=== PATIENT | male | born 1945 | race Caucasian/White ===

== ENCOUNTER → 2020-03-05 14:26 | Outpatient (BNVA) | payer MEDICARE, SELFPAY | PROVIDERS: PCP Internal Medicine; Visit Provider Internal Medicine Cardiovascular Disease | DX: I10 Essential (primary) hypertension (principal); R06.00 Dyspnea, unspecified | CPT/HCPCS: 93005; 99202 ==

== ENCOUNTER → 2020-04-01 08:28 | Outpatient (REF) | payer MEDICARE, SELFPAY ==
--- NOTE | 2020-04-01 08:32 | CA_ITS ---
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 The visually estimated ejection fraction is between 60-65%. - There is mild aortic valve regurgitation. - There is mild tricuspid valve regurgitation. - Small plaque is seen in the sino tubular ridge. Findings Left Ventricle Normal left ventricular cavity size. There is mildly increased left ventricular wall thickness. The left ventricular systolic function is normal. The visually estimated ejection fraction is between 60-65%. There is no evidence of regional wall motion abnormalities. Diastolic function is normal for age. Right Ventricle Normal right ventricular cavity size and systolic function. Atria Both atria are normal in size. Aortic Valve There is a normal trileaflet aortic valve. There is no aortic valve stenosis. There is mild aortic valve regurgitation. Mitral Valve The mitral valve appears normal. There is trace mitral valve regurgitation. There is no mitral valve stenosis. Pulmonic Valve The pulmonic valve was not well visualized. Tricuspid Valve Normal tricuspid valve structure. There is mild tricuspid valve regurgitation. The pulmonary artery systolic pressure is normal. Great Vessels The aortic annulus, sinuses of valsalva, and asc aorta are normal in size. Small plaque is seen in the sino tubular ridge. Venous The inferior vena cava is normal in size and collapses greater than 50% with inspiration. Pericardium/Pleural There is no evidence of pericardial effusion. Prior Study Comparison No prior study available for comparison. Measurements 2D Linear Measurements IVSd: 1.24 0.6-0.9/0.6-1.0 cm LVIDd: 3.83 3.9-5.3/4.2-5.9 cm LVIDd Index: 2.02 2.4-3.2/2.2-3.1 cm/m2 LVIDs: 2.45 2.0-3.6 cm LVPWd: 1.25 0.7-1.1 cm Ao Root: 3.10 2.1-3.5 cm LA Diam: 3.20 2.7-3.8/3.0-4.0 cm LAIDs Index: 1.68 1.5-2.3 cm/m2 LV Mass: 204.10 67-162/88-224 g LV Mass Index: 107.42 43-95/49-115 g/m2 LVOT Diam: 2.30 3.0+(-)1.3 cm 2D Systolic Function EF 4C: 56.40 >55% EF 2C: 66.00 >55% EF BiP: 61.40 >55% Mitral Valve MV Pk E: 0.73 MV PK A: 0.76 MV Decel Time: 232.00 E/A: 1.00 E'Lateral: 11.40 E'Medial: 7.35 E/E' Med: 10.00 E/E' Lat: 6.40 PHT: 68.00 MVA PHT: 3.24 Decel [place]: 3.15 Aortic Valve AoV Pk Koby: 1.38 AoV Mn Koby: 0.88 AoV VTI: 0.33 AoV Pk Grad: 8.00 Aov Mn Grad: 4.00 IRVING Cont.VTI: 3.24 LVOT LVOT Pk Koby: 1.14 LVOT Mn Koby: 0.79 LVOT VTI: 0.26 LVOT Pk Grad: 5.00 LVOT Mn Grad: 3.00 LVOT Diam: 2.30 LVOT Area: 4.15 Diastolic Function MV Pk E: 0.73 MV Pk A: 0.76 E/A: 1.00 E'Medial: 7.35 E/E' Med: 10.00 E' Laterial: 11.40 E/E' Lat: 6.40 Tricuspid Valve TR Pk Koby: 2.59 TR Pk Grad: 27.00 RA Press: 3.00 RVSP: 30.00 Great Vessels Aorta Ao Root-2D: 3.10 2.0-3.7 cm Ao Asc: 3.30 2.1-3.4 cm Pulmonary Valve PV Pk Koby: 0.83 Peak PV Grad: 3.00 Updated in Other Vendor System with Status of Final Homero Hernandez MD electronically signed on 04/03/2020 5:00:17 PM with status of Final
--- NOTE | 2020-04-01 08:32 | CA_ITS ---
Acquisition Time: 2020-04-01 10:01:49 Total Exercise Time: 00:05:00 Test Indications: DYNSPNEA Medications: Protocol: HAYDEE Max HR: 131 BPM 89% of Pred: 146 BPM Max BP: 140/090 mmHG Max Work Load: 6.9 METS Exercise stress test with exercise 5 min of haydee protocol, with moderate SOB, no chest discomfort, with rare PVC, with normotensive response to exercise, without EKG changes meeting criteria for ischemia In recvoery his breathing improved to baseline. Test reviewed with Dr Nicholas. Referred By: Lakhwinder De Souza Overread By: DAJA GONZALEZ
== END ==
LOC: HO.CARD 08:28
PROVIDERS: PCP Internal Medicine; Visit Provider Internal Medicine Cardiovascular Disease
DX: R06.00 Dyspnea, unspecified (principal)
CPT/HCPCS: 93017; 93306

== ENCOUNTER 2020-04-10 12:11 | Outpatient (REF) | payer MEDICARE, SELFPAY ==
[2020-04-10 12:50] LABS: Hematocrit 51.9 % (42-52); Hemoglobin 17.6 g/dl (14.0-18.0); Mean Corpuscular HGB Conc 33.9 g/dl (31.0-36.0); Mean Corpuscular Hemoglobin 32.1 pg (27.0-33.0); Mean Corpuscular Volume 94.7 fL (80-98); Mean Platelet Volume 10.9 fL (9.4-12.4); Platelet Count 278 X10*3/uL (160-400); Red Blood Count 5.48 X10*6/uL (4.60-5.80); Red Cell Distribution Width 12.8 % (11.0-16.0); White Blood Count 7.6 X10*3/uL (4.8-10.8)
[2020-04-10 13:00] LABS: INTERNATIONAL NORM RATIO 0.9 (0.9-1.1); Prothrombin Time 11.2 SEC (10.8-13.0)
[2020-04-10 13:29] LABS: Anion Gap 17 (12-20); Blood Urea Nitrogen 11 mg/dL (9-16); Calcium 10.1 mg/dL (8.4-10.2); Carbon Dioxide 28 mmol/L (22-29); Chloride 101 mmol/L (96-108); Estimated Glomerular Filt Rate > 60; Glucose Random 138 mg/dL (60-115); Potassium 5.6 mmol/L (3.3-5.1); Sodium 140 mmol/L (135-145)
== END 2020-04-10 12:12 | disposition home or self-care (01) ==
LOC: HO.LAB 12:11
PROVIDERS: PCP Internal Medicine; Visit Provider Internal Medicine Cardiovascular Disease
DX: R06.00 Dyspnea, unspecified (principal)
CPT/HCPCS: 36415; 80048; 85027; 85610

== ENCOUNTER 2020-04-23 09:54 | Outpatient (REF) | payer MEDICARE, SELFPAY ==
[2020-04-23 10:59] LABS: Anion Gap 14 (12-20); Blood Urea Nitrogen 11 mg/dL (9-16); Calcium 9.6 mg/dL (8.4-10.2); Carbon Dioxide 31 mmol/L (22-29); Chloride 99 mmol/L (96-108); Estimated Glomerular Filt Rate > 60; Glucose Random 111 mg/dL (60-115); Potassium 4.5 mmol/L (3.3-5.1); Sodium 139 mmol/L (135-145)
== END 2020-04-23 09:55 | disposition home or self-care (01) ==
LOC: HO.LAB 09:54
PROVIDERS: PCP Internal Medicine; Visit Provider Nurse Practitioner Family
DX: E87.5 Hyperkalemia (principal)
CPT/HCPCS: 36415; 80048

== ENCOUNTER → 2020-04-30 10:52 | Outpatient (BNVA) | payer MEDICARE, SELFPAY | PROVIDERS: PCP Internal Medicine; Visit Provider Internal Medicine Cardiovascular Disease | DX: I10 Essential (primary) hypertension (principal); R06.00 Dyspnea, unspecified; D75.1 Secondary polycythemia | CPT/HCPCS: 99212 ==

== ENCOUNTER 2020-05-06 11:01 | Outpatient (REF) | payer MEDICARE, SELFPAY ==
--- NOTE | 2020-05-06 12:18 | PFT_ITS ---
FLOWS: FEV1 of 149% of predicted at 3.26 L. FVC 107% of predicted at 4.24 L. FEV1 to FVC ratio of 0.77. Positive bronchodilator response. LUNG VOLUMES: Total lung capacity 112% of predicted at 7.47 L. Residual volume 129% of predicted at 3.15 L. Slow vital capacity 102% of predicted at 4.32 L. Expiratory reserve volume 149% of predicted at 1.65 L. Diffusion capacity is normal. IMPRESSION: Mild reversible obstructive ventilatory defect with positive bronchodilator response. Increased residual volume suggests air trapping. This test result can be observed in a patient with clinical asthma. Clinical correlation is advised. MD BARRY Garcia/MODL / [id number]
== END 2020-05-06 11:02 | disposition home or self-care (01) ==
LOC: HO.RESP 11:01
PROVIDERS: Visit Provider Internal Medicine Cardiovascular Disease
DX: R06.00 Dyspnea, unspecified (principal)
CPT/HCPCS: 94060; 94727; 94729

== ENCOUNTER 2020-05-20 13:33 | Outpatient (REF) | payer MEDICARE, SELFPAY ==
--- NOTE | ~2020-05-20 | XR_ITS ---
EXAMINATION: XR CHEST CLINICAL INFORMATION: Asthma COMPARISON: Previous chest x-ray and chest CT June 2018 TECHNIQUE: 2 views of the chest were obtained. FINDINGS: The cardiac silhouette does not appear enlarged. The ascending thoracic aorta is slightly prominent but unchanged. Hilar and mediastinal contours are otherwise unremarkable. The lungs are clear. There is no pleural effusion or pneumothorax. There are degenerative changes of the spine. XR/XR chest 2V IMPRESSION: No evidence for acute disease in the chest. Prominent ascending thoracic aorta similar to previous exams.
== END 2020-05-20 13:34 | disposition home or self-care (01) ==
LOC: HO.XRAY 13:33
PROVIDERS: PCP Internal Medicine; Visit Provider Internal Medicine
DX: R06.00 Dyspnea, unspecified (principal); J45.909 Unspecified asthma, uncomplicated; D75.1 Secondary polycythemia; Z79.899 Other long term (current) drug therapy
CPT/HCPCS: 71046; 99202

== ENCOUNTER → 2020-05-28 13:02 | Outpatient (BNVA) | payer MEDICARE, SELFPAY | PROVIDERS: PCP Internal Medicine; Visit Provider Internal Medicine Cardiovascular Disease | DX: Z13.89 Encounter for screening for other disorder (principal) | CPT/HCPCS: 99212 ==

== ENCOUNTER → 2020-06-22 10:53 | Outpatient (BNVA) | payer MEDICARE, SELFPAY | PROVIDERS: PCP Internal Medicine; Visit Provider Internal Medicine | DX: J45.909 Unspecified asthma, uncomplicated (principal); R06.00 Dyspnea, unspecified; D75.1 Secondary polycythemia; Z79.899 Other long term (current) drug therapy | CPT/HCPCS: 99212 ==

== ENCOUNTER → 2020-08-18 12:50 | Outpatient (BNVA) | payer MEDICARE, SELFPAY | PROVIDERS: PCP Internal Medicine; Referring Provider Internal Medicine; Visit Provider Surgery | DX: K40.20 Bilateral inguinal hernia, without obstruction or gangrene, not specified as recurrent (principal) | CPT/HCPCS: 99202 ==

== ENCOUNTER → 2020-12-09 10:52 | Outpatient (BNVA) | payer MEDICARE, SELFPAY | PROVIDERS: PCP Internal Medicine; Visit Provider Internal Medicine Cardiovascular Disease | DX: I10 Essential (primary) hypertension (principal); R06.00 Dyspnea, unspecified | CPT/HCPCS: 99212 ==

== ENCOUNTER → 2020-12-22 10:58 | Outpatient (BNVA) | payer MEDICARE, SELFPAY | PROVIDERS: PCP Internal Medicine; Visit Provider Internal Medicine | DX: J45.909 Unspecified asthma, uncomplicated (principal); R06.00 Dyspnea, unspecified | CPT/HCPCS: 99212 ==

== ENCOUNTER 2021-03-22 13:46 | Outpatient (REF) | payer MEDICARE, SELFPAY ==
[2021-03-22 16:19] LABS: MANUAL DIFF FLAG NO
[2021-03-22 16:25] LABS: Basophils Percent Auto 0.3 % (0-2); Eosinophils Absolute Auto 0.2 X10*3/uL (0.0-0.4); Eosinophils Percent Auto 2.2 % (0-4); Hematocrit 49.8 % (42.0-52.0); Hemoglobin 16.5 g/dl (14.0-18.0); Imm Gran Abs Auto 0.02 X10*3/uL (0.00-0.03); Imm Gran Pct Auto 0.3 % (0.0-0.4); Lymphocytes Absolute Auto 1.2 X10*3/uL (1.2-4.9); Lymphocytes Percent Auto 16.3 % (20-40); Mean Corpuscular HGB Conc 33.1 g/dl (31.0-36.0); Mean Corpuscular Volume 93.6 fL (80.0-98.0); Mean Platelet Volume 11.6 fL (9.4-12.4); Monocytes Absolute Auto 0.9 X10*3/uL (0.1-1.2); Monocytes Percent Auto 12.2 % (2-11); Neutrophils Absolute Auto 5.1 x10*3/uL (2.0-8.3); Neutrophils Percent Auto 68.7 % (45-73); Platelet Count 251 X10*3/uL (160-400); Red Blood Count 5.32 X10*6/uL (4.60-5.80); Red Cell Distribution Width 13.2 % (11.0-16.0); White Blood Count 7.4 X10*3/uL (4.8-10.8)
[2021-03-22 16:30] LABS: Appearance Urine CLEAR; Color Urine YELLOW; Glucose Urine UA NEG (NEG); Leukocyte Esterase Urine 2+ (NEG); Nitrite Urine POS (NEG); Specific Gravity - Urine 1.025 (1.005-1.025); UACC Culture Trigger YES; Urine Blood NEG (NEG); Urine Ketones NEG (NEG); Urine Protein NEG (NEG-TRACE)
[2021-03-22 16:49] LABS: Alanine Aminotransferase 13 U/L (0-40); Alkaline Phosphatase 86 U/L (39-117); Anion Gap 12 (12-20); Aspartate Amino Transferase 30 U/L (5-37); Bilirubin Total 0.7 mg/dL (0.0-1.0); Blood Urea Nitrogen 12 mg/dL (9-16); Calcium 9.7 mg/dL (8.4-10.2); Carbon Dioxide 31 mmol/L (22-29); Chloride 101 mmol/L (96-108); Cholesterol 154 mg/dL; Estimated Glomerular Filt Rate > 60; Glucose Fasting 101 mg/dL (60-99); HDL Cholesterol 45 mg/dL; LDL Cholesterol Calculated 84 mg/dl; Potassium 4.6 mmol/L (3.3-5.1); Sodium 139 mmol/L (135-145); Total Protein 7.5 g/dL (6.5-8.0); Triglycerides 127 mg/dL
[2021-03-22 17:10] LABS: Thyroid Stimulating Hormone 0.55 uIU/mL (0.32-4.0)
[2021-03-22 17:55] LABS: Amorphous Sediment Urine 4+ /LPF; Bacteria Urine 3+ /LPF; RBC Urine 0 /HPF (0); WBC Urine 30-49 /HPF (0-4)
[2021-03-26 11:02] LABS: Testosterone, Total 1762 ng/dL (250-1100)
== END 2021-03-22 13:47 | disposition home or self-care (01) ==
LOC: HO.HMGCLDS 13:46
PROVIDERS: Absent Provider Internal Medicine Endocrinology, Diabetes & Metabolism; Visit Provider Internal Medicine
DX: N40.1 Benign prostatic hyperplasia with lower urinary tract symptoms (principal); E03.9 Hypothyroidism, unspecified; R25.1 Tremor, unspecified; M54.50 Low back pain, unspecified
CPT/HCPCS: 36415; 80053; 80061; 81001; 82306; 84403; 84443; 85025; 87086; 87088; 87186

== ENCOUNTER 2021-07-01 12:12 | Outpatient (REF) | payer MEDICARE, SELFPAY ==
[2021-07-01 13:51] LABS: Appearance Urine CLOUDY; Color Urine YELLOW; Glucose Urine UA NEG (NEG); Leukocyte Esterase Urine 2+ (NEG); Nitrite Urine POS (NEG); Specific Gravity - Urine 1.015 (1.005-1.025); Urine Blood NEG (NEG); Urine Ketones NEG (NEG); Urine Protein NEG (NEG-TRACE)
[2021-07-01 14:13] LABS: Bacteria Urine 3+ /LPF; WBC Urine TNTC /HPF (0-4)
== END 2021-07-01 12:13 | disposition home or self-care (01) ==
LOC: HO.HMGCLDS 12:12
PROVIDERS: PCP Internal Medicine; Visit Provider Internal Medicine
DX: N40.1 Benign prostatic hyperplasia with lower urinary tract symptoms (principal)
CPT/HCPCS: 81001; 87086; 87088; 87186

== ENCOUNTER → 2021-07-07 09:40 | Outpatient (BNVA) | payer MEDICARE, SELFPAY | PROVIDERS: PCP Internal Medicine; Referring Provider Internal Medicine; Visit Provider Internal Medicine Cardiovascular Disease | DX: I10 Essential (primary) hypertension (principal); J45.909 Unspecified asthma, uncomplicated | CPT/HCPCS: 93005; 99212 ==

== ENCOUNTER → 2021-12-20 10:12 | Outpatient (BNVA) | payer MEDICARE, SELFPAY | PROVIDERS: PCP Internal Medicine; Visit Provider Internal Medicine | DX: R06.00 Dyspnea, unspecified (principal); J45.909 Unspecified asthma, uncomplicated | CPT/HCPCS: 99212 ==

== ENCOUNTER → 2022-03-02 14:43 | Outpatient (REF) | payer MEDICARE, SELFPAY ==
--- NOTE | 2022-03-02 14:54 | ECG_ITS ---
Test Reason : M48.061, E78.00 Blood Pressure : / mmHG Vent. Rate : 074 BPM Atrial Rate : 074 BPM P-R Int : 164 ms QRS Dur : 074 ms QT Int : 364 ms P-R-T Axes : 074 004 065 degrees QTc Int : 404 ms Normal sinus rhythm Possible Left atrial enlargement Borderline ECG No previous ECGs available Referred By: Mike Jolley Electronically Signed By:CORBIN STEINER
[2022-03-02 15:04] LABS: MANUAL DIFF FLAG NO
[2022-03-02 15:24] LABS: Basophils Percent Auto 0.6 % (0-2); Eosinophils Absolute Auto 0.1 X10*3/uL (0.0-0.4); Eosinophils Percent Auto 1.5 % (0-4); Hematocrit 53.6 % (42.0-52.0); Hemoglobin 17.8 g/dl (14.0-18.0); Imm Gran Abs Auto 0.02 X10*3/uL (0.00-0.03); Imm Gran Pct Auto 0.3 % (0.0-0.4); Lymphocytes Absolute Auto 1.2 X10*3/uL (1.2-4.9); Lymphocytes Percent Auto 17.5 % (20-40); Mean Corpuscular HGB Conc 33.2 g/dl (31.0-36.0); Mean Corpuscular Volume 96.2 fL (80.0-98.0); Mean Platelet Volume 11.2 fL (9.4-12.4); Monocytes Absolute Auto 0.7 X10*3/uL (0.1-1.2); Monocytes Percent Auto 10.1 % (2-11); Platelet Count 204 X10*3/uL (160-400); Red Blood Count 5.57 X10*6/uL (4.60-5.80); Red Cell Distribution Width 13.8 % (11.0-16.0); White Blood Count 7.1 X10*3/uL (4.8-10.8)
[2022-03-02 15:28] LABS: Appearance Urine Clear; Color Urine Dark Yellow; Glucose Urine UA Negative (Negative); Leukocyte Esterase Urine Trace (Negative); Nitrite Urine Negative (Negative); PH 5.5 (5.0-9.0); Specific Gravity - Urine 1.025 (1.005-1.025); UMIC TRIGGER UA YES; Urine Blood Negative (Negative); Urine Ketones Trace mg/dL (Negative); Urine Protein Trace mg/dL (Neg-Trace)
[2022-03-02 15:34] LABS: Bacteria Urine None Seen (None Seen); Hyaline Casts Urine 0-2 /LPF (0-2); RBC Urine 0-2 /HPF (0-2); Squamous Epithelial Cell Urine 0-2 /HPF (0-2); WBC Urine 0-5 /HPF (0-5)
[2022-03-02 15:35] LABS: INTERNATIONAL NORM RATIO 0.9 (0.9-1.1); Prothrombin Time 10.4 SEC (10.0-13.1)
[2022-03-02 16:28] LABS: Alanine Aminotransferase 17 U/L (0-40); Albumin Level 4.4 g/dL (3.5-5.0); Alkaline Phosphatase 80 U/L (39-117); Anion Gap 12 (12-20); Aspartate Amino Transferase 33 U/L (5-37); Bilirubin Total 0.8 mg/dL (0.0-1.0); Blood Urea Nitrogen 11 mg/dL (9-16); Calcium 10.6 mg/dL (8.4-10.2); Carbon Dioxide 32 mmol/L (22-29); Chloride 100 mmol/L (96-108); Estimated Glomerular Filt Rate > 60; Glucose Random 111 mg/dL (60-115); Potassium 5.4 mmol/L (3.3-5.1); Sodium 139 mmol/L (135-145); Total Protein 7.9 g/dL (6.5-8.0)
[2022-03-02 16:45] LABS: Thyroid Stimulating Hormone 0.42 uIU/mL (0.32-4.0)
== END ==
LOC: HO.CARD 14:43
PROVIDERS: PCP Internal Medicine; Visit Provider Internal Medicine
DX: M48.061 Spinal stenosis, lumbar region without neurogenic claudication (principal); E03.9 Hypothyroidism, unspecified; N40.1 Benign prostatic hyperplasia with lower urinary tract symptoms; R25.1 Tremor, unspecified
CPT/HCPCS: 36415; 80053; 81001; 84443; 85025; 85610; 87086; 93005

== ENCOUNTER → 2022-08-18 13:00 | Outpatient (BNVA) | payer MEDICARE, SELFPAY | PROVIDERS: PCP Internal Medicine; Referring Provider Internal Medicine; Visit Provider Internal Medicine Cardiovascular Disease | DX: I10 Essential (primary) hypertension (principal) | CPT/HCPCS: 99212 ==

== ENCOUNTER 2022-10-06 08:00 | Outpatient (REF) | payer MEDICARE, SELFPAY ==
--- NOTE | ~2022-10-06 | XR_ITS ---
EXAMINATION: XR PELVIS CLINICAL INFORMATION: Pain COMPARISON: None available. TECHNIQUE: AP view of the pelvis. FINDINGS: Moderate to advanced degenerative changes of the bilateral hips with near complete loss of joint space. No acute fracture or dislocation appreciated on this limited single view. Degenerative disc disease in the visualized lower lumbosacral spine. Calcified phleboliths in the pelvis. Desiccated stool within the rectum. XR/XR pelvis 1-2V IMPRESSION: 1. Moderate to advanced degenerative changes of the bilateral hips with near complete loss of joint space. 2. Degenerative disc disease in the visualized lower lumbosacral spine.
--- NOTE | ~2022-10-06 | XR_ITS ---
EXAMINATION: XR BILATERAL KNEES CLINICAL INFORMATION: Reason for Exam M25.569 - Pain in unspecified knee COMPARISON: MR knee 05/24/2018 TECHNIQUE: One standing views of the bilateral knees and 2 views of the left knee FINDINGS: RIGHT KNEE: No acute fracture or dislocation on this limited single view. Advanced degenerative changes of the medial compartment with near complete loss of joint space and osteophytosis. Atherosclerotic vascular calcification. LEFT KNEE: No acute fracture or dislocation. Moderate degenerative changes of the knee with loss of medial compartment joint space and lateral and patellofemoral compartment osteophytes. Moderate suprapatellar joint effusion. Soft tissues are unremarkable. XR/XR knee standing BI IMPRESSION: * No acute osseous abnormality. * Advanced degenerative changes of the right knee and moderate degenerative changes of the left knee. * Moderate left suprapatellar joint effusion.
--- NOTE | ~2022-10-06 | XR_ITS ---
EXAMINATION: XR BILATERAL KNEES CLINICAL INFORMATION: Reason for Exam M25.569 - Pain in unspecified knee COMPARISON: MR knee 05/24/2018 TECHNIQUE: One standing views of the bilateral knees and 2 views of the left knee FINDINGS: RIGHT KNEE: No acute fracture or dislocation on this limited single view. Advanced degenerative changes of the medial compartment with near complete loss of joint space and osteophytosis. Atherosclerotic vascular calcification. LEFT KNEE: No acute fracture or dislocation. Moderate degenerative changes of the knee with loss of medial compartment joint space and lateral and patellofemoral compartment osteophytes. Moderate suprapatellar joint effusion. Soft tissues are unremarkable. XR/XR knee LT 2V IMPRESSION: * No acute osseous abnormality. * Advanced degenerative changes of the right knee and moderate degenerative changes of the left knee. * Moderate left suprapatellar joint effusion.
== END 2022-10-06 08:01 | disposition home or self-care (01) ==
LOC: HO.HOSX 08:00
PROVIDERS: Visit Provider Orthopaedic Surgery
DX: M16.12 Unilateral primary osteoarthritis, left hip (principal); M17.12 Unilateral primary osteoarthritis, left knee; M21.169 Varus deformity, not elsewhere classified, unspecified knee
CPT/HCPCS: 20610; 72170; 73560; 73565; 99202; J1100

== ENCOUNTER 2022-10-06 09:03 | Outpatient (AMB) | payer MEDICARE, SELFPAY ==
--- NOTE | 2022-10-06 09:13 | MHC.OFFVIS ---
Intake Intake Visit Reasons: severe LT knee/groin pain Intake Note: Joel is a 77 year old male who presents today as a new patient with complaints of severe left hip/groin pain. Hx of LT knee with Dr. Mckinley 08/01/2018. Patient has history of Lumbar fusion L3-4, complains of severe left groin pain that started about a week and a half ago. He reports that he woke up in the middle of the night with severe pain in the left leg. He finds that his pain has gotten worse in the knee. He has pain that travels down the left butock into the leg. Allergies adhesive tape [ADHESIVE TAPE] Allergy (Intermediate, Verified 08/18/22 13:04) RASH cashew nut [CASHEW NUT] Allergy (Intermediate, Verified 08/18/22 13:04) SWELLING sulfamethoxazole [From Bactrim] Allergy (Verified 10/06/22 09:29) rashes trimethoprim [From Bactrim] Allergy (Verified 10/06/22 09:29) rashes PERM HAIR DYE Allergy (Unknown, Uncoded 08/18/22 13:04) UNKNOWN HPI severe LT knee/groin pain HPI Details Joel is a 77 year old man who presents with complaints of severe left groin & knee pain. He complains of pain in the left side of his groin, which radiates down into his knee, as well as down his buttocks into the back of his leg. He says this is unbearable and he is barely able to stand due to the pain. His pain began ~10 days ago, while he was sleeping. He says this woke him up in the middle of the night. He says today most of his pain is in the medial aspect of his knee He has a hx of lumbar L3-L4 fusion recently, and has had increased swelling and pain in his knee since this operation. He denies any numbness, tingling, or burning. He says he feels throbbing and pain. He is supposed to go on Vacation next week and is worried he will not be able to due to his pain. He denies any use of Narcotics except for right after his back surgery. He has been taking Motrin daily with minimal relief. He says he was seen in the ED for this but received no help. 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 He has a hx of left knee by me, DOS: 08/01/18 [facility] Medical History Asthma Testicular cancer Surgical History History of back surgery History of cholecystectomy History of intestinal surgery History of left knee surgery History of lumpectomy History of right knee surgery Family History Father Clogged artery (heart) Mother Cardiac disease Social History Alcohol intake: current Alcohol intake frequency: a few times a week Alcohol type: beer Patient Tobacco Use Status: Never used Tobacco Review of Systems Const All systems reviewed & are unremarkable except as noted in HPI and below Physical Exam Const General: no acute distress, alert and awake Orientation/consciousness: patient oriented x3 HEENT Head: Yes normocephalic and Yes atraumatic Eyes EOM: EOMs intact bilaterally Resp Effort & Inspection: normal respiratory effort and able to speak in complete sentences Cardio Jugular venous distension: no JVD Skin General skin exam: turgor normal Rashes: no rashes Neuro General: patient oriented x3 Extrem Other: Left Hip: Severely antalgic gait Markedly + impingement test Psych Appearance: grossly normal Affect: normal affect Attitude: cooperative Office Procedures Joint Injection/Drain Joint Injection/Drain Details: Injected 1 mL of Decadron and 3 mL 1% lidocaine and 3 mL of 0.25% Marcaine. Site was prepped using aseptic technique. Patient tolerated the procedure well. Primary Site: other (Left hip joint) Approach Used: anterior Coding 01832 - Large joint Procedure code (CPT) selection complete Results Reviewed Results Reviewed: 10/06/22 09:56 BUPivacaine MPF 0.25 % [Sensorcaine-MPF 0.25% 10 ML] 10 ml .ROUTE .STK-MED ONE Lidocaine HCl 2 % MPF [Xylocaine 2 % MPF] 5 ml .ROUTE .STK-MED ONE dexAMETHasone sod phosphate [Decadron] 4 mg .ROUTE .STK-MED ONE I personally reviewed relevant radiographs. Bilateral hip OA Bilateral varus pattern knee OA Assessment & Plan Assessment & Plan (1) Osteoarthritis of left hip: Code(s): M16.12 - Unilateral primary osteoarthritis, left hip Plan: This is a 77 year old man with left hip OA and worsening groin pain. He has pain with weight-bearing activities and feels limited in his ADLs. He finds no relief from Motrin and denies any prior treatment. I discussed his diagnosis and treatment options. I recommend NSAIDs and Depo-Medrol. I injected his left hip joint today, which he tolerated well, and he had immediate relief of his symptoms prior to leaving clinic. I reviewed his diagnosis and some isometric strengthening exercises. We will contact him on Monday to discuss his symptoms and a possible Medrol dose pack if his severe pain returns. (2) Osteoarthritis of left knee: Code(s): M17.12 - Unilateral primary osteoarthritis, left knee (3) Varus deformity of knee: Comment: Bilateral Code(s): M21.169 - Varus deformity, not elsewhere classified, unspecified knee Plan Scribed for Ash Mckinley MD by Kalin Coughlin, medical records secretary, on 10/06/22 at 9:50 AM, EST. Orders: Orders XR knee LT 2V 10/06/22 M25.569 - Pain in unspecified knee XR knee standing BI 10/06/22 M25.569 - Pain in unspecified knee XR pelvis 1-2V 10/06/22 M25.559 - Pain in unspecified hip Coding Level of Care Code New Pt Level 4 (69939) Diagnoses Osteoarthritis of left hip M16.12 Osteoarthritis of left knee M17.12 Varus deformity of knee M21.169 CPT Codes Coding - 87507 Large joint: 14340 - Large joint ([id number])
== END 2022-10-06 10:44 | disposition home or self-care (01) ==
PROVIDERS: PCP Internal Medicine; Visit Provider Orthopaedic Surgery
DX: M16.12 Unilateral primary osteoarthritis, left hip (principal); M17.12 Unilateral primary osteoarthritis, left knee; M21.169 Varus deformity, not elsewhere classified, unspecified knee
CPT/HCPCS: 20610; 99204

== ENCOUNTER 2023-01-06 10:54 | Outpatient (AMB) | payer MEDICARE, SELFPAY ==
--- NOTE | 2023-01-06 10:58 | MHC.OFFVIS ---
Intake Vital Signs 01/06/23 10:59 Height 5 ft 8 in Weight 166 lb BMI 25.2 Intake Visit Reasons: ov- severe LT knee/groin pain Intake Note: Joel is a 77 year old male who presents today as a new patient with complaints of severe left hip/groin pain. Last injection done 10/06/22. At this visit he was also given a Medrol-Dose Curtis. He was departing for vacation to [place] for a non refundable trip and was quite worried about his pain limiting him. Patient reports that he is feeling horrible. His pain is severely impacting his daily life. MRI of the hip scheduled for january Allergies adhesive tape [ADHESIVE TAPE] Allergy (Intermediate, Verified 08/18/22 13:04) RASH cashew nut [CASHEW NUT] Allergy (Intermediate, Verified 08/18/22 13:04) SWELLING sulfamethoxazole [From Bactrim] Allergy (Verified 10/06/22 09:29) rashes trimethoprim [From Bactrim] Allergy (Verified 10/06/22 09:29) rashes PERM HAIR DYE Allergy (Unknown, Uncoded 08/18/22 13:04) UNKNOWN HPI ov- severe LT knee/groin pain HPI Details Joel is a 77 year old man who returns to discuss his severe left groin & knee pain. He continues to complain of pain in the left side of his groin, which radiates down into his knee. He says this is unbearable and he is barely able to stand due to the pain. He says he has to put a pillow between his knees at night so he can sleep on his side. He is frustrated by his limitations, and wants to know why his pain began after pushing his hip to the limit with PT. He is unsure if this is OA causing his pain and he has an MRI scheduled for 01/31/23. He says he knows what [id number] OA pain feels like, and is insistent that this pain is different . At his last appointment he received an in-office hip joint injection and was given a medrol-dose curtis on 10/06/22 prior to his trip to [place]. He says that on this vacation he was only able to walk up and down the street slowly and is upset by this. 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 [facility] Medical History Asthma Testicular cancer Surgical History History of back surgery History of cholecystectomy History of intestinal surgery History of left knee surgery History of lumpectomy History of right knee surgery Family History Father Clogged artery (heart) Mother Cardiac disease Social History Alcohol intake: current Alcohol intake frequency: a few times a week Alcohol type: beer Patient Tobacco Use Status: Never used Tobacco Review of Systems Const All systems reviewed & are unremarkable except as noted in HPI and below Physical Exam Vital Signs: BMI result Body Mass Index 25.2 Const General: no acute distress, alert and awake Orientation/consciousness: patient oriented x3 HEENT Head: Yes normocephalic and Yes atraumatic Eyes EOM: EOMs intact bilaterally Resp Effort & Inspection: normal respiratory effort and able to speak in complete sentences Cardio Jugular venous distension: no JVD Skin General skin exam: turgor normal Rashes: no rashes Neuro General: patient oriented x3 Extrem Other: Left Hip: Severely antalgic gait Markedly + impingement test Psych Appearance: grossly normal Affect: normal affect Attitude: cooperative Results Reviewed Results Reviewed: I personally reviewed relevant radiographs 1. Moderate to advanced degenerative changes of the bilateral hips with near complete loss of joint space. 2. Degenerative disc disease in the visualized lower lumbosacral spine. Advanced degenerative changes of the right knee and moderate degenerative changes of the left knee. Assessment & Plan Assessment & Plan (1) Osteoarthritis of left hip: Code(s): M16.12 - Unilateral primary osteoarthritis, left hip Plan: This is a 77 year old man with left hip OA and worsening groin pain. He has pain with weight-bearing activities and feels limited in his ADLs. He finds no relief from NSAIDs and his hip joint injection on 10/06/22 gave him relief for only one day. He is resistant to admitting this is OA and instead if focused on the possibility of this being a soft-tissue injury instead. I had a long discussion with him concerning his diagnosis and treatment options, and think he would benefit from a MICKEY, however he is resistant to the thought of having another surgery . His pain is made worse by his anxiety and depression, as well as his limitations. He has an MRI scheduled for 01/31/23, which he says he has to pay for out of pocket. I explained this surgery to Joel including the risks, benefits, and recovery timeline. He will speak with Marysol for more information about this procedure, while we wait for his MRI to be completed. He will follow up for an MRI review. (2) Osteoarthritis of left knee: Code(s): M17.12 - Unilateral primary osteoarthritis, left knee (3) Varus deformity of knee: Comment: Bilateral Code(s): M21.169 - Varus deformity, not elsewhere classified, unspecified knee Plan Scribed for Ash Mckinley MD by Kalin Coughlin, medical reimbursement manager, on 01/06/23 at 11:25 AM, EST. Orders: Orders MR hip LT wo con Today M16.12 - Unilateral primary osteoarthritis, left hip Coding Level of Care Code Est Pt Level 4 (43629) Diagnoses Osteoarthritis of left hip M16.12 Osteoarthritis of left knee M17.12 Varus deformity of knee M21.169
[2023-01-06 10:59] VITALS: BMI 25.2
== END 2023-01-06 12:40 | disposition home or self-care (01) ==
PROVIDERS: PCP Internal Medicine; Visit Provider Orthopaedic Surgery
DX: M16.12 Unilateral primary osteoarthritis, left hip (principal); M17.12 Unilateral primary osteoarthritis, left knee; M21.169 Varus deformity, not elsewhere classified, unspecified knee
CPT/HCPCS: 99214

== ENCOUNTER → 2023-01-06 10:54 | Outpatient (BNVA) | payer MEDICARE, SELFPAY | PROVIDERS: PCP Internal Medicine; Visit Provider Orthopaedic Surgery | DX: M16.12 Unilateral primary osteoarthritis, left hip (principal); M17.12 Unilateral primary osteoarthritis, left knee; M21.169 Varus deformity, not elsewhere classified, unspecified knee | CPT/HCPCS: 99212 ==

== ENCOUNTER 2023-01-12 13:42 | Outpatient (AMB) | payer MEDICARE, SELFPAY ==
[2023-01-12 13:53] VITALS: BP 140/70; PULSE 60; BMI 25.6
--- NOTE | 2023-01-12 13:53 | MHC.OFFVIS ---
Intake Vital Signs 01/12/23 13:53 01/12/23 14:07 Height 5 ft 8 in 5 ft 8 in Weight 168 lb 6.931 oz 168 lb 6.931 oz BMI 25.6 25.6 BP 140/70 H 132/72 Blood Pressure Location Lt brachial Lt brachial Position Sitting Sitting Pulse 60 Pulse Source Pulse Oximeter Intake Visit Reasons: Pre-op LT MICKEY with Dr. Mckinley Allergies adhesive tape [ADHESIVE TAPE] Allergy (Intermediate, Verified 01/12/23 13:55) RASH cashew nut [CASHEW NUT] Allergy (Intermediate, Verified 01/12/23 13:55) SWELLING sulfamethoxazole [From Bactrim] Allergy (Verified 01/12/23 13:55) rashes trimethoprim [From Bactrim] Allergy (Verified 01/12/23 13:55) rashes PERM HAIR DYE Allergy (Unknown, Uncoded 01/12/23 13:55) UNKNOWN Medication List - Last Reconciled 01/12/23 by Tania Muñoz NP alprazolam 2.5 mg PO BID PRN amlodipine 5 mg PO DAILY atorvastatin 80 mg PO DAILY cholecalciferol (vitamin D3) 25 mcg PO DAILY dextroamphetamine-amphetamine 20 mg (Adderall) 40 mg PO DAILY diclofenac sodium 75 mg PO BID escitalopram oxalate (Lexapro) 20 mg PO DAILY levothyroxine 125 mcg PO DAILY methenamine hippurate 1 g PO BID multivitamin 1 tab PO DAILY omeprazole 40 mg PO DAILY primidone 50 mg PO TID propranolol ER 120 mg PO DAILY tamsulosin 0.4 mg PO BID testosterone cypionate mg IM Q2W HPI HPI Comments History of Present Illness Details 77-year-old male presents today for a pre-operative clearnace for a total hip replacement. He reports he has been doing well since he was last seen and tolerating his medications well. He denies any symptoms at rest or exertion. His blood pressures at home are on average 130/70. Blood pressure high at first and at goal on recheck. [facility] Medical History Asthma Testicular cancer Surgical History History of cholecystectomy History of lumpectomy History of back surgery History of right knee surgery History of left knee surgery History of intestinal surgery Family History Father Clogged artery (heart) Mother Cardiac disease Social History Alcohol intake: current Alcohol intake frequency: a few times a week Alcohol type: beer Patient Tobacco Use Status: Never used Tobacco Review of Systems Const Denies chills, Denies fatigue, Denies fever(s), Denies frequent falls, Denies weakness, Denies weight gain and Denies weight loss ENT Denies dizziness Card Denies chest pain, Denies chest pain with activity, Denies syncope, Denies rapid heart rate, Denies pedal edema, Denies irregular heart rhythm, Denies leg edema, Denies lightheadedness, Denies palpitations, Denies dyspnea, Denies dyspnea on exertion, Denies orthopnea and Denies other (LOC) Resp Denies cough, Denies dyspnea and Denies dyspnea on exertion GI Denies hematochezia and Denies change in bowel habits Musc Denies abnormal gait, Denies arthralgias, Denies muscle weakness, Denies numbness, Denies radiating pain into limb and Denies tingling Neuro Denies abnormal gait, Denies dizziness, Denies syncope, Denies frequent falls, Denies numbness, Denies tingling and Denies weakness Endo Denies fatigue and Denies palpitations Physical Exam Vital Signs: Last Vital Signs Pulse 60 01/12/23 13:53 BP 132/72 01/12/23 14:07 BMI result Body Mass Index 25.6 Const General: healthy appearing and no acute distress Orientation/consciousness: patient oriented x3 HEENT Head: Yes normal to inspection Eyes General: appearance normal, both eyes and all related structures Neck Neck: Yes normal visual inspection Chest Chest palpation & inspection: normal inspection of the chest Resp Effort & Inspection: normal respiratory effort Auscultation: clear to auscultation bilaterally Cardio Jugular venous distension: no JVD Palpation: normal PMI Rate: regular rate Rhythm: regular rhythm Heart sounds: S1 normal heart sound present, S2 normal heart sound present, no click, no gallops, no murmurs and no rubs GI Inspection: Yes normal to inspection Palpation (GI): Soft to palpation Skin General skin exam: no rashes or lesions noted Neuro General: patient oriented x3 Extrem General: Yes normal to inspection Psych Appearance: grossly normal Office Procedures EKG Details: EKG today. Normal Sinus Rhythm. QTc 404ms. [place] 162ms. [id number], Complete Assessment & Plan Assessment & Plan (1) Hypertension: Code(s): I10 - Essential (primary) hypertension Qualifiers: Hypertension type: essential hypertension Qualified Code(s): I10 - Essential (primary) hypertension (2) Pre-operative cardiovascular examination: Code(s): Z01.810 - Encounter for preprocedural cardiovascular examination Plan Blood pressures have been stable. Conitnue medications. Report any new symptoms. Will touch base with Dr De Souza on clearance. Coding Level of Care Code Est Pt Level 3 (67949) Diagnoses Essential hypertension I10 Hypertension type: essential hypertension Pre-operative cardiovascular examination Z01.810 CPT Codes EKG - CPT: 47324-[id number], Complete ([id number])
[2023-01-12 14:07] VITALS: BP 132/72; BMI 25.6
== END 2023-01-12 14:15 | disposition home or self-care (01) ==
PROVIDERS: PCP Internal Medicine; Visit Provider Nurse Practitioner
DX: I10 Essential (primary) hypertension (principal); Z01.810 Encounter for preprocedural cardiovascular examination
CPT/HCPCS: 93010; 99213

== ENCOUNTER → 2023-01-12 13:42 | Outpatient (BNVA) | payer MEDICARE, SELFPAY | PROVIDERS: PCP Internal Medicine; Visit Provider Nurse Practitioner | DX: Z01.810 Encounter for preprocedural cardiovascular examination (principal); I10 Essential (primary) hypertension | CPT/HCPCS: 93005; 99212 ==

== ENCOUNTER → 2023-01-16 10:25 | Outpatient (REF) | payer MEDICARE, SELFPAY ==
--- NOTE | 2023-01-16 10:32 | ECG_ITS ---
Test Reason : ANXIETY, HYPOTHYROID Blood Pressure : / mmHG Vent. Rate : 062 BPM Atrial Rate : 062 BPM P-R Int : 178 ms QRS Dur : 076 ms QT Int : 386 ms P-R-T Axes : 068 005 064 degrees QTc Int : 391 ms Normal sinus rhythm Possible Left atrial enlargement Otherwise normal ECG When compared with ECG of 02-MAR-2022 15:13, No significant change was found Referred By: Mike Jolley Electronically Signed By:GREGORY COOPER MD
[2023-01-16 16:21] LABS: Anion Gap 8 (12-20); Blood Urea Nitrogen 19 mg/dL (9-16); Calcium 9.6 mg/dL (8.4-10.2); Carbon Dioxide 31 mmol/L (22-29); Chloride 102 mmol/L (96-108); Estimated Glomerular Filt Rate > 60; Glucose Random 110 mg/dL (60-115); Potassium 4.3 mmol/L (3.3-5.1); Sodium 137 mmol/L (135-145)
== END ==
LOC: HO.CARD 10:25
PROVIDERS: PCP Internal Medicine; Visit Provider Internal Medicine
DX: F41.1 Generalized anxiety disorder (principal); E03.9 Hypothyroidism, unspecified; E87.5 Hyperkalemia
CPT/HCPCS: 36415; 80048; 93005

== ENCOUNTER → 2023-01-26 14:15 | Outpatient (BNVA) | payer MEDICARE, SELFPAY | PROVIDERS: PCP Internal Medicine; Visit Provider Physician Assistant ==

== ENCOUNTER 2023-01-31 07:46 | Inpatient (IN) | payer MEDICARE, SELFPAY ==
--- NOTE | 2023-01-23 12:53 | P.CONAN_ITS ---
Documented by User: Nichol Conrad NP 01/23/23 14:52 HPI - Anesthesia Eval Consult details Narrative: 77yo M for Left Hip Total Replacement Cardiac optimized PCP cleared No recent illness No CP/SOB with stairs and rowing Bilat hearing aides Asthma. Stable. No inhalers needed Polycythemia - r/t testosterone injections (post-orchiectomy). Does not require phlebotomies. Tardive dyskinesia - ? d/t depression rx. Changed since but symptoms persist. Jaw moves with talking and resting tremors Chronic UTI - methenamine Hyperkalemia - transient, but upper normal for years, unclear etiology per patient. As high as 6.5 with preop labs. Repeat DOS. Pt reports pain poorly managed post spine surgery with morphine, required dilaudid. PMFSH Active Problems Active Problems: All Active Problems (Updated 01/18/23 @ 11:06 by Savita Parry RN) Osteoarthritis of right knee (Acute) Osteoarthritis of left knee (Acute) Osteoarthritis of right hip (Acute) Osteoarthritis of left hip (Acute) Varus deformity of knee (Acute) Bilateral primary osteoarthritis of knee (Acute) Bilateral primary osteoarthritis of hip (Acute) NIKOLAI (hard of hearing) (Acute) Left otitis media (Acute) Left otitis externa (Acute) Bilateral inguinal hernia (Acute) Polycythemia (Acute) Hyperkalemia (Acute) Hypertension (Acute) BECKMAN (dyspnea on exertion) (Acute) Asthma (Acute) Past Medical History Medical History ADD (attention deficit disorder) Enlarged prostate Hyperkalemia Tardive dyskinesia Hard of hearing Hypothyroid Depression Polycythemia Osteoarthritis HTN (hypertension) Asthma Testicular cancer Family History Family History Father Clogged artery (heart) Mother Cardiac disease Family history of problems with anesthesia: No Surgical History Surgical History Hx of unilateral orchiectomy Hx of excision of mass H/O colonoscopy History of cholecystectomy History of back surgery History of right knee surgery History of left knee surgery History of intestinal surgery History of Problems with Anesthesia: No Social History Social History Are you a primary outdoor emergency care technician to a significant other at home: No Do you presently have visiting nurse or other home services: No Alcohol intake: current Alcohol intake frequency: a few times a week Alcohol type: beer Patient Tobacco Use Status: Never used Tobacco Use of substances other than those prescribed or required for medical reasons: Yes Substance Use Type Other:: edible-1/4 of a small brownie at bedtime Substance Use Frequency: Daily Have you been hit, kicked, punched, or otherwise hurt by someone within the past year? If so, by whom?: No Are you DNR?: No Advance Directives: No (sons are primary contact) Advance Directives Information Provided: Yes (brochure given) Advance Directives on File: No Recently lost weight without trying: No Eating poorly because of decreased appetite: No Nutrition Risks: Surgical patient >75years Poor oral hygiene: No (3 broken caps) Meds Allergies Allergy/AdvReac Type Severity Reaction Status Date / Time adhesive tape [ADHESIVE TAPE] Allergy Intermediate RASH Verified 01/31/23 07:56 cashew nut [CASHEW NUT] Allergy Intermediate SWELLING Verified 01/31/23 07:56 sulfamethoxazole Allergy Intermediate Rash Verified 01/31/23 07:56 [From Bactrim] trimethoprim [From Bactrim] Allergy Intermediate Rash Verified 01/31/23 07:56 PERM HAIR DYE Allergy Severe severe rash Uncoded 01/31/23 07:56 Home Medications Medication Instructions Recorded Confirmed Last Taken Type atorvastatin 80 mg tablet 80 mg PO DAILY 03/05/20 01/26/23 Unknown History levothyroxine 125 mcg tablet 125 mcg PO DAILY 03/05/20 01/26/23 Unknown History omeprazole 40 mg capsule,delayed 40 mg PO DAILY 03/05/20 01/26/23 Unknown History release testosterone cypionate 200 mg/mL 200 mg IM Q2W 03/05/20 01/26/23 Unknown History intramuscular oil cholecalciferol (vitamin D3) 25 25 mcg PO DAILY 04/30/20 01/26/23 Unknown History mcg (1,000 unit) capsule primidone 50 mg tablet 50 mg PO BID 04/30/20 01/26/23 Unknown History tamsulosin 0.4 mg capsule 0.4 mg PO BID 04/30/20 01/26/23 Unknown History escitalopram oxalate 20 mg tablet 20 mg PO DAILY 04/05/21 01/26/23 Unknown History (Lexapro) alprazolam 1 mg tablet 1 mg PO BID 07/07/21 01/26/23 Unknown History dextroamphetamine-amphetamine 20 20 mg PO BID 07/07/21 01/26/23 Unknown History mg tablet (Adderall) propranolol 120 mg capsule,24 120 mg PO Q2D 07/07/21 01/26/23 Unknown History hr,extended release diclofenac sodium 75 mg 75 mg PO BID PRN Pain 08/18/22 01/23/23 Unknown History tablet,delayed release methenamine hippurate 1 gram tablet 1 g PO BID 08/18/22 01/26/23 Unknown History multivitamin 1 tab PO DAILY 08/18/22 01/26/23 Unknown History melatonin 10 mg tablet 10 mg PO BEDTIME 01/23/23 01/26/23 Unknown History Exam Height,Weight and Vital Signs: Pulse Resp BP Pulse Ox O2 Del Method 59 20 167/77 H 98 Room Air 01/23/23 13:59 01/23/23 13:59 01/23/23 13:59 01/23/23 13:59 01/23/23 13:59 Pertinent Lab Results Pertinent Lab Results: Laboratory Tests 01/16/23 14:50 Sodium 137 Potassium 4.3 D Chloride 102 Carbon Dioxide 31 H BUN 19 H Creatinine 1.09 CBC from outside facility 12/2022 WNL Narrative Narrative: EKG 12/2022 Vent. Rate : 062 BPM Atrial Rate : 062 BPM P-R Int : 178 ms QRS Dur : 076 ms QT Int : 386 ms P-R-T Axes : 068 005 064 degrees QTc Int : 391 ms Normal sinus rhythm Possible Left atrial enlargement Otherwise normal ECG When compared with ECG of 02-MAR-2022 15:13, No significant change was found Cardiac cath 2020 cardiac catheterization for his progressive dyspnea which did not show any significant coronary disease. His filling pressures at rest were normal. Airway Mallampati Class: II TM Dist: >3cm Neck ROM: Full Loose/Missing/Broken Teeth: Yes (3 x broken capped molars) Heart: RRR Lungs: CTAB Assessment and Plan Assessment Anesthesia Assessment: Anesthesia Plan Discussed and PAT Visit Final Anesthetic Review Family History of Problems with Anesthesia: No History of Problems with Anesthesia: No Documented by User: Cory Alexandra MD 01/31/23 07:58 PMFSH Past Medical History Medical History ADD (attention deficit disorder) Enlarged prostate Hyperkalemia Tardive dyskinesia Hard of hearing Hypothyroid Depression Polycythemia Osteoarthritis HTN (hypertension) Asthma Testicular cancer Family History Family History Father Clogged artery (heart) Mother Cardiac disease Surgical History Surgical History Hx of unilateral orchiectomy Hx of excision of mass H/O colonoscopy History of cholecystectomy History of back surgery History of right knee surgery History of left knee surgery History of intestinal surgery Social History Social History Are you a primary outdoor emergency care technician to a significant other at home: No Do you presently have visiting nurse or other home services: No Alcohol intake: current Alcohol intake frequency: a few times a week Alcohol type: beer Patient Tobacco Use Status: Never used Tobacco Use of substances other than those prescribed or required for medical reasons: Yes Substance Use Type Other:: edible-1/4 of a small brownie at bedtime Substance Use Frequency: Daily Have you been hit, kicked, punched, or otherwise hurt by someone within the past year? If so, by whom?: No Are you DNR?: No Advance Directives: No (sons are primary contact) Advance Directives Information Provided: Yes (brochure given) Advance Directives on File: No Recently lost weight without trying: No Eating poorly because of decreased appetite: No Nutrition Risks: Surgical patient >75years Poor oral hygiene: No (3 broken caps) Meds Allergies Allergy/AdvReac Type Severity Reaction Status Date / Time adhesive tape [ADHESIVE TAPE] Allergy Intermediate RASH Verified 01/31/23 07:56 cashew nut [CASHEW NUT] Allergy Intermediate SWELLING Verified 01/31/23 07:56 sulfamethoxazole Allergy Intermediate Rash Verified 01/31/23 07:56 [From Bactrim] trimethoprim [From Bactrim] Allergy Intermediate Rash Verified 01/31/23 07:56 PERM HAIR DYE Allergy Severe severe rash Uncoded 01/31/23 07:56 Home Medications Medication Instructions Recorded Confirmed Last Taken Type atorvastatin 80 mg tablet 80 mg PO DAILY 03/05/20 01/26/23 Unknown History levothyroxine 125 mcg tablet 125 mcg PO DAILY 03/05/20 01/26/23 Unknown History omeprazole 40 mg capsule,delayed 40 mg PO DAILY 03/05/20 01/26/23 Unknown History release testosterone cypionate 200 mg/mL 200 mg IM Q2W 03/05/20 01/26/23 Unknown History intramuscular oil cholecalciferol (vitamin D3) 25 25 mcg PO DAILY 04/30/20 01/26/23 Unknown History mcg (1,000 unit) capsule primidone 50 mg tablet 50 mg PO BID 04/30/20 01/26/23 Unknown History tamsulosin 0.4 mg capsule 0.4 mg PO BID 04/30/20 01/26/23 Unknown History escitalopram oxalate 20 mg tablet 20 mg PO DAILY 04/05/21 01/26/23 Unknown History (Lexapro) alprazolam 1 mg tablet 1 mg PO BID 07/07/21 01/26/23 Unknown History dextroamphetamine-amphetamine 20 20 mg PO BID 07/07/21 01/26/23 Unknown History mg tablet (Adderall) propranolol 120 mg capsule,24 120 mg PO Q2D 07/07/21 01/26/23 Unknown History hr,extended release diclofenac sodium 75 mg 75 mg PO BID PRN Pain 08/18/22 01/23/23 Unknown History tablet,delayed release methenamine hippurate 1 gram tablet 1 g PO BID 08/18/22 01/26/23 Unknown History multivitamin 1 tab PO DAILY 08/18/22 01/26/23 Unknown History melatonin 10 mg tablet 10 mg PO BEDTIME 01/23/23 01/26/23 Unknown History Assessment and Plan Final Anesthetic Review ASA Class: III Final Preanesthetic Review: No Changes in Pt Med Stat, Meds/Allgs Chart Reviewed, Consent Obtained/Reviewed and Anes Risks/Benef Reviewed Patient Risk: Intermediate Procedure Risk: Intermediate Anesthetic Plan Anesthetic Plan: GA and Agree w/ Assess. and Plan Disposition: Standard PACU
[2023-01-23 13:59] VITALS: BP 167/77; PULSE 59; RESP 20; O2SAT 98; BMI 24.8
[2023-01-24 12:32] LABS: MRSA Nasal PCR NEGATIVE (Negative); SA Nasal PCR NEGATIVE (Negative)
[2023-01-31] VITALS (15 sets, daily range): BP systolic 110–139; BP diastolic 55–77; PULSE 55–73; RESP 12–24; TEMP 36.1–36.8; O2SAT 94–100; BMI 24.5; BMI 26.2
--- NOTE | ~2023-01-31 | XR_ITS ---
EXAMINATION: XR PELVIS CLINICAL INFORMATION: Left total hip arthroplasty. COMPARISON: AP pelvis 10/06/2022 and MRI left hip 01/07/2023. TECHNIQUE: AP view of the pelvis. FINDINGS: There is a total left hip arthroplasty with prosthetic components in satisfactory alignment. The right hip joint space is maintained normal. SI joints are normal. Immediate postoperative changes around the left hip are noted. XR/XR pelvis 1-2V IMPRESSION: Status post total left hip arthroplasty with satisfactory alignment of left hip prosthesis. Immediate postoperative changes are noted.
--- OUTSIDE RECORDS SUMMARY | 2023-01-31 07:54 | XMS_ITS | Continuity of Care Document ---
Author Name Unknown Organization [facility] Address [address] [place] [address]- Care Team Providers Care [id number] Developer Name Role Phone Mike Jolley DO Primary Care Physician Encounter [facility] Date(s): 03/15/22 - 04/14/22 [facility] [address] [place], [place] [address] Attending Physician: AdmGetachew gonzalez Admitting Physician: Admtr, Ar8 Referring Physician: Admtr, Ar8 Allergies, Adverse Reactions, Alerts Substance Reaction Severity Status Bactrim Rash Active Adhesive Bandage rash Active Other Food Allergy cashews/ rash Active Other Environmental Allergy Severe Rash hair dye Active Immunizations Given and Recorded Vaccine Date Status Refusal Reason influenza virus vaccine, inactivated 11/23/21 Aki rded influenza virus vaccine, inactivated 03/04/21 Aki rded influenza virus vaccine, inactivated 12/28/19 Aki rded influenza virus vaccine, inactivated 05/01/19 Aki rded influenza virus vaccine, inactivated 03/15/18 Aki rded influenza virus vaccine, inactivated 03/10/17 Aki rded influenza virus vaccine, inactivated 12/21/15 Aki rded SARS-CoV-2 (COVID-19) mRNA BNT-162b2 vac 01/04/21 Recorded SARS-CoV-2 (COVID-19) mRNA BNT-162b2 vac 06/03/20 Recorded SARS-CoV-2 (COVID-19) mRNA BNT-162b2 vac 05/13/20 Recorded pneumococcal 23-valent vaccine 02/18/16 Recorded Medications acetaminophen 325 mg oral tablet 975 mg, By Mouth, Every 6 hours, Not to exceed 4 GM of Tylenol per 24 hour period, Refills 0, Maintenance, 04/02/22 14:22:00 EST, Partial fill upon patient request if the prescription is for a schedule II opioid drug. Start Date: 04/02/22 Status: Ordered Adderall 20 mg oral tablet See Instructions, 1 tablet By Mouth 2 times a day and 3rd time as needed, # 90 tablet, 0 Refills, Maintenance, 08/17/15 10:36:17, Tablet, Fill after 09/28/15 Start Date: 08/17/15 Status: Ordered ALPRAZolam 0.5 mg oral tablet 0.5 mg, 1, tablet, By Mouth, 2 times a day, PRN, Refills 0, Maintenance, for anxiety, 04/28/20 12:10:00 EST, Partial fill upon patient request if the prescription is for a schedule II opioid drug. Start Date: 04/28/20 Status: Ordered amLODIPine 2.5 mg oral tablet 2 tablet = 5 mg, By Mouth, Daily in AM, # 30 tablet, 0 Refills, Maintenance, 01/11/22 9:42:00 EST, Tablet, Partial fill upon patient request if the prescription is for a schedule II opioid drug. Start Date: 01/11/22 Status: Ordered atorvastatin 80 mg oral tablet 1 tablet = 80 mg, By Mouth, Daily at bedtime, # 30 tablet, 0 Refills, Maintenance, 04/28/20 12:11:00 EST, Tablet, Partial fill upon patient request if the prescription is for a schedule II opioid drug. Start Date: 04/28/20 Status: Ordered Cane See Instructions, # 1 each, Maintenance, use as directed, 04/14/22 10:36:00 EST, Supply, 172.72, cm, 04/12/22 11:35:00 EST, Height, 75.7, kg, 03/30/22 15:39:00 EST, Dry Weight Start Date: 04/14/22 Status: Ordered cholecalciferol 1000 intl units oral capsule 1 capsule = 25 mcg, By Mouth, Daily in AM, # 100 capsule, 0 Refills, Maintenance, 01/11/22 9:40:00 EST, Capsule, Partial fill upon patient request if the prescription is for a schedule II opioid drug. Start Date: 01/11/22 Status: Ordered Dilaudid 4 mg oral tablet 1 tablet = 4 mg, By Mouth, Every 6 hours, PRN as needed for pain, # 30 tablet, 0 Refills, Acute 04/19/22 4:00:00 EST, 04/14/22 11:50:00 EST, Tablet, [facility]/pharmacy #[id number], Partial fill upon patient request if the prescription is for a schedule II opioid... Start Date: 04/14/22 Stop Date: 04/19/22 Status: Ordered docusate sodium 100 mg oral capsule 1 capsule = 100 mg, By Mouth, 2 times a day, # 28 capsule, 0 Refills, Maintenance, 04/02/22 14:22:00 EST, Capsule, [facility], Partial fill upon patient request if the prescription is for a schedule II opioid drug., 172.72, cm, 04/01/22... Start Date: 04/02/22 Stop Date: 04/16/22 Status: Ordered escitalopram 20 mg oral tablet 1 tablet = 20 mg, By Mouth, Daily in AM, # 30 tablet, 0 Refills, Maintenance, 01/11/22 9:41:00 EST,Tablet, Partial fill upon patient request if the prescription is for a schedule II opioid drug. Start Date: 01/11/22 Status: Ordered Flomax 0.4 mg oral capsule 0.4 mg, 1, capsule, By Mouth, 2 times a day, Refills 0, Maintenance, 04/28/20 12:09:00 EST, Partialfill upon patient request if the prescription is for a schedule II opioid drug. Start Date: 04/28/20 Status: Ordered Levothroid 0.125 mg oral tablet 0.125, mg, 1, tablet, By Mouth, Daily, 0, 0, 01/26/06 15:22:25, Print YOHAN Number, [id number], Constant Indicator Start Date: 01/26/06 Status: Ordered melatonin 10 mg oral tablet, extended release 1 tablet = 10 mg, By Mouth, Daily at bedtime, PRN as needed for sleep, # 60 tablet, 0 Refills, Maintenance, 03/28/22 8:40:00 EST, ER Tablet, Partial fill upon patient request if the prescription is for a schedule II opioid drug. Start Date: 03/28/22 Status: Ordered methenamine hippurate 1 gm oral tablet 1 tablet = 1 Gm, By Mouth, 2 times a day, # 10 tablet, 0 Refills, Maintenance, 03/28/22 8:44:00 EST, Tablet, Partial fill upon patient request if the prescription is for a schedule II opioid drug. Start Date: 03/28/22 Stop Date: 04/02/22 Status: Ordered Multivitamin By Mouth, Daily in AM, 0 Refills, Maintenance, 01/11/22 9:41:00 EST, Partial fill upon patient request if the prescription is for a schedule II opioid drug. Start Date: 01/11/22 Status: Ordered omeprazole 40 mg oral enteric coated capsule 1 capsule = 40 mg, By Mouth, Daily in AM, # 30 capsule, 0 Refills, Maintenance, 04/28/20 12:12:00 EST, EC Capsule, Partial fill upon patient request if the prescription is for a schedule II opioid drug. Start Date: 04/28/20 Status: Ordered polyethylene glycol 3350 oral powder for reconstitution = 17 Gm, By Mouth, Daily, for 15 days, dissolve in water before taking, # 255 Gm, 0 Refills, Acute 04/17/22 14:23:00 EST, 04/02/22 14:23:00 EST, REC Powder, [facility], Partial fill upon patient request if the prescription is for a sched... Start Date: 04/02/22 Stop Date: 04/17/22 Status: Ordered primidone 50 mg oral tablet 100 mg, 2, tablet, By Mouth, Daily in AM, # 120 tablet, Refills 0, Maintenance, 03/28/22 8:39:00 EST, Partial fill upon patient request if the prescription is for a schedule II opioid drug. Start Date: 03/28/22 Status: Ordered primidone 50 mg oral tablet 50 mg, 1, tablet, By Mouth, Daily at bedtime, Refills 0, Maintenance, 04/28/20 12:13:00 EST, Partial fill upon patient request if the prescription is for a schedule II opioid drug. Start Date: 04/28/20 Status: Ordered propranolol 120 mg oral capsule, extended release 1 capsule = 120 mg, By Mouth, Every other day, 0 Refills, Maintenance, 04/28/20 12:14:00 EST, Partial fill upon patient request if the prescription is for a schedule II opioid drug. Start Date: 04/28/20 Status: Ordered Testosterone = 200 mg, Intramuscular, Every 14 days, 0 Refills, 01/26/06 15:23:42 EST Start Date: 01/26/06 Status: Ordered tiZANidine 4 mg oral tablet 4 mg, 1, tablet, By Mouth, Every 8 hours, # 90 tablet, Refills 0, Tot. Refills 0, Maintenance, 04/02/22 14:23:00 EST, Route to Pharmacy Electronically, [facility], Partial fill upon patient request if the prescription is for a schedule I... Start Date: 04/02/22 Stop Date: 05/02/22 Status: Ordered Patient Care team information Care Team Personnel Name: Rebeca Steele RN Position: S RN Member Role: Primary Care Nurse Name: Mike Jolley DO Position: Reference Physician Member Role: PCP Address: Address: [address] [place] [address] Mike Jol[place], [place] [address] Name: Alayna Laguna Position: [facility] RN Member Role: Primary Care Nurse Care Team Related Persons Name: VALERIE BOJORQUEZ Name: CINTIA BOJORQUEZ Address: home [address] [place] [address] Name: DIMPLE BOJORQUEZ Address: home [address] [place] [address]
--- OUTSIDE RECORDS SUMMARY | 2023-01-31 07:55 | XMS_ITS | Continuity of Care Document ---
Author Name Unknown Organization [facility] Address [address] [place] [address] asmita, [address] [place] [address]- Care Team Providers Care Director Of Corporate Real Estate Name Role Phone Mike Jolley DO Primary Care Physician [phone] Encounter [facility] [place] Date(s): 01/25/22 - 02/24/22 [facility] [address] [place] [address] Drive, [address] [place], [place] [address] Attending Physician: Admtr, [id number] Admitting Physician: Admtr, Ar8 Referring Physician: Admtr, Ar8 Allergies, Adverse Reactions, Alerts Substance Reaction Severity Status Bactrim Active Adhesive Bandage rash Active Other Food Allergy cashews/ rash Active Other Environmental Allergy hair dye Active Medications Adderall 20 mg oral tablet See Instructions, 1 tablet By Mouth 2 times a day and 3rd time as needed, # 90 tablet, 0 Refills, Maintenance, 08/17/15 10:36:17, Tablet, Fill after 09/28/15 Start Date: 08/17/15 Status: Ordered ALPRAZolam 0.5 mg oral tablet 0.5 mg, 1, tablet, By Mouth, 3 times a day, PRN, Refills 0, Maintenance, for anxiety, 04/28/20 12:10:00 EST, Partial fill upon patient request if the prescription is for a schedule II opioid drug. Start Date: 04/28/20 Status: Ordered amLODIPine 2.5 mg oral tablet 1 tablet = 2.5 mg, By Mouth, Daily, # 30 tablet, 0 Refills, Maintenance, 01/11/22 9:42:00 EST, Tablet, Partial fill upon patient request if the prescription is for a schedule II opioid drug. Start Date: 01/11/22 Status: Ordered atorvastatin 80 mg oral tablet 1 tablet = 80 mg, By Mouth, Daily, # 30 tablet, 0 Refills, Maintenance, 04/28/20 12:11:00 EST, Tablet, Partial fill upon patient request if the prescription is for a schedule II opioid drug. Start Date: 04/28/20 Status: Ordered CeleXA 10 mg oral tablet 10 mg, 1, tablet, By Mouth, Daily, # 30 tablet, Refills 0, Maintenance, 04/28/20 12:12:00 EST, Partial fill upon patient request if the prescription is for a schedule II opioid drug. Start Date: 04/28/20 Status: Ordered cholecalciferol 1000 intl units oral capsule 1 capsule = 25 mcg, By Mouth, Daily, # 100 capsule, 0 Refills, Maintenance, 01/11/22 9:40:00 EST, Capsule, Partial fill upon patient request if the prescription is for a schedule II opioid drug. Start Date: 01/11/22 Status: Ordered diclofenac sodium 75 mg oral delayed release tablet 1 tablet = 75 mg, By Mouth, 2 times a day, # 180 tablet, 0 Refills, Maintenance, 01/11/22 9:39:00 EST, EC Tablet, Partial fill upon patient request if the prescription is for a schedule II opioid drug. Start Date: 01/11/22 Status: Ordered escitalopram 20 mg oral tablet 1 tablet = 20 mg, By Mouth, Daily, # 30 tablet, 0 Refills, Maintenance, 01/11/22 9:41:00 EST, Tablet, Partial fill upon patient request [...] 0, 0, 01/26/06 15:22:25, Print YOHAN Number, [id number], Constant Indicator Start Date: 01/26/06 Status: Ordered Multivitamin Daily, 0 Refills, Maintenance, 01/11/22 9:41:00 EST, Partial fill upon patient request if the prescription is for a schedule II opioid drug. Start Date: 01/11/22 Status: Ordered omeprazole 40 mg oral enteric coated capsule 1 capsule = 40 mg, By Mouth, Daily, # 30 capsule, 0 Refills, Maintenance, 04/28/20 12:12:00 EST, ECCapsule, Partial fill upon patient request if the prescription is for a schedule II opioid drug. Start Date: 04/28/20 Status: Ordered primidone 50 mg oral tablet 50 mg, 1, tablet, By Mouth, Daily at bedtime, Refills 0, Maintenance, 04/28/20 12:13:00 EST, Partial fill upon patient request if the prescription is for a schedule II opioid drug. Start Date: 04/28/20 Status: Ordered propranolol 120 mg oral capsule, extended release 1 capsule = 120 mg, By Mouth, Daily, 0 Refills, Maintenance, 04/28/20 12:14:00 EST, Partial fill upon patient request if the prescription is for a schedule II opioid drug. Start Date: 04/28/20 Status: Ordered sulfamethoxazole-trimethoprim 400 mg-80 mg oral tablet 0.5 tablet, By Mouth, Daily, 0 Refills, Maintenance, 04/28/20 12:17:00 EST, Partial fill upon patient request if the prescription is for a schedule II opioid drug. Start Date: 04/28/20 Status: Ordered Testosterone 20, mg, Intramuscular, Every 14 days, 0, 0, 01/26/06 15:23:42, Print YOHAN Number, [id number], Constant Indicator Start Date: 01/26/06 Status: Ordered Patient Care team information Care Team Personnel Name: Mike Jolley DO Position: Reference Physician Member Role: PCP Address: Address: [address] [place] [address] [place] [address]- Name: Alayna Laguna Position: [facility] RN Member Role: Primary Care Nurse Care Team Related Persons Name: CINTIA BOJORQUEZ Address: home [address] [place] [address] Name: DIMPLE BOJORQUEZ Address: home [address] [place] [address]
--- OUTSIDE RECORDS SUMMARY | 2023-01-31 07:55 | XMS_ITS | Continuity of Care Document ---
Author Name Unknown Organization [facility] Address [address] [place], [place] [address]cristian tian, [address] [place] [address]- Care Team Providers Care Sterile Processing Technologist Name Role Phone Mike Jolley DO Primary Care Physician Encounter [facility] Date(s): 01/28/22 - 02/27/22 [facility] [address] [place] [address] Drive, [address] [place] [address]- Allergies, Adverse Reactions, Alerts Substance Reaction Severity [...] 0, 0, 01/26/06 15:22:25, Print YOHAN Number, [id number], Constant Indicator Start Date: 01/26/06 Status: Ordered [...] Reference Physician Member Role: PCP Address: Address: [address] [place] [address] [place] [address]- Name: Alayna Laguna Position: [facility] RN Member Role: Primary Care Nurse Care Team Related Persons Name: CINTIA BOJORQUEZ Address: home [address] [place] [address] Name: DIMPLE BOJORQUEZ Address: home [address] [place] [address]
--- OUTSIDE RECORDS SUMMARY | 2023-01-31 07:55 | XMS_ITS | Continuity of Care Document ---
Author Name Unknown Organization [facility] Address [address] [place] [address] asmita, [address] [place] [address]- Care Team Providers Care Soaker Name Role Phone Mike Jolley DO Primary Care Physician [phone] Encounter [facility] [place] Date(s): 04/18/22 - 05/18/22 [facility] [address] [place] [address] Drive, [address] [place], [place] [address] Allergies, Adverse Reactions, Alerts Substance Reaction Severity [...] # 1 each, Maintenance, use as directed, 04/18/22 14:35:00 EST, Supply Start Date: 04/18/22 Status: Ordered Cane See Instructions, # 1 each, Maintenance, use as directed, 04/14/22 10:36:00 EST, Dx , Lumbar stenosis, Supply, 172.72, cm, 04/12/22 11:35:00 EST, Height, [...] opioid drug. Start Date: 01/11/22 Status: Ordered docusate sodium 100 mg oral capsule 1 capsule = 100 mg, By Mouth, 2 times a day, # 28 capsule, 0 Refills, Maintenance, 04/02/22 14:22:00 EST, Capsule, [facility], Partial fill upon patient request [...] 0, 0, 01/26/06 15:22:25, Print YOHAN Number, [id number], Constant Indicator Start Date: 01/26/06 Status: Ordered [...] 04/02/22 14:23:00 EST, Route to Pharmacy Electronically, [facility], Partial fill upon patient request if the prescription is for a schedule I... Start Date: 04/02/22 Stop Date: 05/02/22 Status: Ordered Patient Care team information Care Team Personnel Name: Rebeca Steele RN Position: S RN Member Role: Primary Care Nurse Name: Mike Jolley DO Position: Reference Physician Member Role: PCP Address: Address: [address] [place] [address] Mike Jolley MD [place], [place] [address] Name: Alayna Laguna Position: Jerry RN Member Role: Primary Care Nurse Care Team Related Persons Name: VALERIE BOJORQUEZ Name: CINTIA BOJORQUEZ Address: home [address] [place] [address] Name: DIMPLE BOJORQUEZ Address: home [address] [place] [address]
--- OUTSIDE RECORDS SUMMARY | 2023-01-31 07:55 | XMS_ITS | Continuity of Care Document ---
Author Name Unknown Organization [facility] Address [address] [place] [address] [address]mit[address], [address] [place] [address]- Care Team Providers Care Lab Animal Technician Name Role Phone Mike Jolley DO Primary Care Physician Encounter [facility] [place] Date(s): 03/25/22 - 04/24/22 [facility] [address] [place] [address] Drive, [address] [place] [address]- Allergies, Adverse Reactions, Alerts Substance Reaction Severity [...] 0 Refills, Maintenance, 04/02/22 14:22:00 EST, Capsule, [facility], Partial fill upon patient [...] 0, 0, 01/26/06 15:22:25, Print YOHAN Number, [id number], Constant Indicator Start Date: 01/26/06 Status: Ordered [...] 04/02/22 14:23:00 EST, Route to Pharmacy Electronically, [facility], Partial fill upon patient request if the prescription is for a schedule I... Start Date: 04/02/22 Stop Date: 05/02/22 Status: Ordered Patient Care team information Care Team Personnel Name: Rebeca Steele RN Position: S RN Member Role: Primary Care Nurse Name: Mike Jolley DO Position: Reference Physician Member Role: PCP Address: Address: [address] [place] [address] Mike Jolley MD [place], [place] [address] Name: Alayna Laguna Position: Jerry RN Member Role: Primary Care Nurse Care Team Related Persons Name: VALERIE BOJORQUEZ Name: CINTIA BOJORQUEZ Address: home [address] [place] [address] Name: DIMPLE BOJORQUEZ Address: [address] [place] [address]
--- OUTSIDE RECORDS SUMMARY | 2023-01-31 07:55 | XMS_ITS | Continuity of Care Document ---
Author Name Unknown Organization [facility] Address [address] [place] [address] [address], [address] [place] [address]- Care Team Providers Care Mgmt Analyst Name Role Phone Mike Jolley DO Primary Care Physician Encounter [facility] [place] Date(s): 12/31/21 - 01/30/22 [facility] [address] [place] [address] Drive, [address] [place], [place] [address] Allergies, Adverse Reactions, Alerts Substance Reaction Severity [...] 0, 0, 01/26/06 15:22:25, Print YOHAN Number, [id number], Constant Indicator Start Date: 01/26/06 Status: Ordered [...] Reference Physician Member Role: PCP Address: Address: [address] [place] [address] [place] [address]- Name: Alayna Laguna Position: [facility] RN Member Role: Primary Care Nurse Care Team Related Persons Name: CINTIA BOJORQUEZ Address: [address] [place] [address] Name: DIMPLE BOJORQUEZ Address: [address] [place] [address]
--- OUTSIDE RECORDS SUMMARY | 2023-01-31 07:55 | XMS_ITS | Continuity of Care Document ---
Author Name Unknown Organization [facility] Address [address] [place] [address] [address], [address] [place] [address]- Care Team Providers Care Marine Habitat Resource Specialist Name Role Phone Mike Jolley DO Primary Care Physician Encounter [facility] Date(s): 04/12/22 - 05/12/22 [facility] [address] [place] [address] Drive, [address] [place], [place] [address] Allergies, Adverse Reactions, Alerts Substance Reaction Severity [...] 0 Refills, Maintenance, 04/02/22 14:22:00 EST, Capsule, [facility], Partial fill upon patient request [...] 0, 0, 01/26/06 15:22:25, Print YOHAN Number, [id number], Constant Indicator Start Date: 01/26/06 Status: Ordered [...] 04/02/22 14:23:00 EST, Route to Pharmacy Electronically, [facility], Partial fill upon patient request if the prescription is for a schedule I... Start Date: 04/02/22 Stop Date: 05/02/22 Status: Ordered Patient Care team information Care Team Personnel Name: Rebeca Stelee RN Position: Jerry RN Member Role: Primary Care Nurse Name: Mike Jolley DO Position: Reference Physician Member Role: PCP Address: Address: [address] [place] [address] [place] [address]- Name: Alayna Laguna Position: [facility] RN Member Role: Primary Care Nurse Care Team Related Persons Name: VALERIE BOJORQUEZ Name: CINTIA BOJORQUEZ Address: [address] [place] [address] Name: DIMPLE BOJORQUEZ Address: home [address] [place] [address]
--- OUTSIDE RECORDS SUMMARY | 2023-01-31 07:55 | XMS_ITS | Continuity of Care Document ---
Author Name Unknown Organization [facility] Address [address] [place] [address]- Care Team Providers Care Electronic Specialist Name Role Phone Mike Jolley DO Primary Care Physician [phone] [place] [facility] Date(s): 02/13/22 - 04/14/22 [facility] [address] [place], [place] [address] Attending Physician: Arvind Bradley MD Admitting Physician: Arvind Bradley MD Referring Physician: Dedrick Reyes MD Allergies, Adverse Reactions, Alerts Substance Reaction Severity [...] 04/19/22 4:00:00 EST, 04/14/22 11:50:00 EST, Tablet, [id number], Partial fill upon patient request if the prescription is for a schedule II opioid... Start Date: 04/14/22 Stop Date: 04/19/22 Status: Ordered docusate sodium 100 mg oral capsule 1 capsule = 100 mg, By Mouth, 2 times a day, # 28 capsule, 0 Refills, Maintenance, 04/02/22 14:22:00 EST, Capsule, [facility], Partial fill upon patient [...] 0, 0, 01/26/06 15:22:25, Print YOHAN Number, [id number], Constant Indicator Start Date: 01/26/06 Status: Ordered [...] 14:23:00 EST, 04/02/22 14:23:00 EST, REC Powder, [facility], Partial fill upon patient request if [...] 04/02/22 14:23:00 EST, Route to Pharmacy Electronically, [facility], Partial fill upon patient request if the prescription is for a schedule I... Start Date: 04/02/22 Stop Date: 05/02/22 Status: Ordered Patient Care team information Care Team Personnel Name: Rebeca Steele RN Position: S RN Member Role: Primary Care Nurse Name: Mike Jolley DO Position: Reference Physician Member Role: PCP Address: Address: [address] [place] [address] Mike Jolley MD [place], [place] [address] Name: Alayna Laguna Position: [facility] RN Member Role: Primary Care Nurse Care Team Related Persons Name: VALERIE BOJORQUEZ Name: CINTIA BOJORQUEZ Address: home [address] [place] [address] Name: DIMPLE BOJORQUEZ Address: home [address] [place] [address]
--- OUTSIDE RECORDS SUMMARY | 2023-01-31 07:55 | XMS_ITS | Continuity of Care Document ---
Author Name Unknown Organization [facility] Address [address] [place] [address] asmit[address], [address] [place] [address]- Care Team Providers Care Supervisor Customer Services Name Role Phone Mike Jolley DO Primary Care Physician [phone] Encounter [facility] [place] Date(s): 04/14/22 - 05/14/22 [facility] [address] [place] [address] Drive, [address] [place], [place] [address] Allergies, Adverse Reactions, Alerts Substance [...] 0 Refills, Maintenance, 04/02/22 14:22:00 EST, Capsule, [facility], Partial fill upon patient [...] 0, 0, 01/26/06 15:22:25, Print YOHAN Number, [id number], Constant Indicator Start Date: 01/26/06 Status: Ordered [...] 04/02/22 14:23:00 EST, Route to Pharmacy Electronically, [facility], Partial fill upon patient request if the prescription is for a schedule I... Start Date: 04/02/22 Stop Date: 05/02/22 Status: Ordered Patient Care team information Care Team Personnel Name: Rebeca Steele RN Position: S RN Member Role: Primary Care Nurse Name: Mike Jolley DO Position: Reference Physician Member Role: PCP Address: Address: [address] [place] [address] Mike Jolley MD [place], [place] [address] Name: Alayna Laguna Position: Jerry RN Member Role: Primary Care Nurse Care Team Related Persons Name: VALERIE BOJORQUEZ Name: CINTIA BOJORQUEZ Address: [address] [place] [address] Name: DIMPLE BOJORQUEZ Address: [address] [place] [address]
--- OUTSIDE RECORDS SUMMARY | 2023-01-31 07:55 | XMS_ITS | Continuity of Care Document ---
Author Name Unknown Organization [facility] ter Address [address] [place] [address]- Care Team Providers Care Industrial Relations Counselor Name Role Phone Mike Jolley DO Primary Care Physician En[place] [facility] Date(s): 01/28/22 - 03/19/[address] [address] Attending Physician: Dedrick Reyes MD Referring Physician: Dedrick Reyes MD Allergies, [...] 0, 0, 01/26/06 15:22:25, Print YOHAN Number, [id number], Constant Indicator Start Date: 01/26/06 Status: Ordered [...] Reference Physician Member Role: PCP Address: Address: [address] [place] [address] Mike Jolley MD [place], [place] [address] Name: Alayna Laguna Position: [facility] RN Member Role: Primary Care Nurse Care Team Related Persons Name: CINTIA BOJORQUEZ Address: [address] [place] [address] Name: DIMPLE BOJORQUEZ Address: [address] [place] [address]
--- OUTSIDE RECORDS SUMMARY | 2023-01-31 07:55 | XMS_ITS | Continuity of Care Document ---
Author Name Unknown Organization [facility] ter Address [address] [place] [address]- Care Team Providers Care Occupational Therapy Instructor Name Role Phone Mike Jolley DO Primary Care Physician Encounter [facility] Date(s): 09/28/22 - 09/29/[address] [address]- Encounter Diagnosis Back pain(Final) - 09/29/22 Leg pain(Final) - 09/29/22 Groin pain(Final) - 09/29/22 Discharge Disposition: A-D/C Home Attending Physician: Jefry Vora DO Admitting Physician: Jefry Vora DO Referring Physician: Not on Staff, Referring MD Allergies, Adverse Reactions, Alerts Substance Reaction [...] mg, By Mouth, Every 6 hours, PRN for pain, # 12 tablet, 0 Refills, Maintenance, 09/29/22 0:12:00 EDT, Tablet, Partial fill upon patient request if the prescription is for a schedule II opioid drug. Start Date: 09/29/22 Status: Ordered Dilaudid 4 mg oral tablet 1 tablet = 4 mg, By Mouth, Every 6 hours, PRN as needed for pain, # 8 tablet, 0 Refills, Maintenance, 09/29/22 0:39:00 EDT, Tablet, [facility]/pharmacy #[id number], Partial fill upon patient request if the prescription is for a schedule II opioid drug., 173, cm, 0... Start Date: 09/29/22 Stop Date: 10/02/22 Status: Ordered docusate sodium 100 mg oral capsule 1 capsule = 100 mg, By Mouth, 2 times a day, # 28 capsule, 0 Refills, Maintenance, 04/02/22 14:22:00 EST, Capsule, [facility], Partial fill upon patient request [...] 0, 0, 01/26/06 15:22:25, Print YOHAN Number, [id number], Constant Indicator Start Date: 01/26/06 Status: Ordered [...] 04/02/22 14:23:00 EST, Route to Pharmacy Electronically, [facility], Partial fill upon patient request if the prescription is for a schedule I... Start Date: 04/02/22 Stop Date: 05/02/22 Status: Ordered Results Radiology Reports * Exam Date Time Procedure Performing Provider Status 09/28/22 9:[address] Abd/Pelvis W/ IV Contrast Only Alvaro Montiel; Auth (Verified) Notes: (CT Abd/Pelvis W/ IV Contrast Only) Reason For Exam: left abdominal pain, flank pain, groin pain;Other: RESULT: CT Abd/Pelvis W/ IV Contrast Only CT Abd/Pelvis W/ IV Contrast Only HX OF PRESENT ILLNESS: Patient reports severe left groin pain that extends to left flank and left lower back ; Reason: left abdominal pain, flank pain, groin pain TECHNIQUE: Spiral CT through the abdomen and pelvis with IV contrast formatted in 3 planes. 100 cc of Omnipaque 300 was administered intravenously. This study was performed without oral contrast. Weight-based protocol using automatic tube modulation was used to optimize exposure parameters. CTDIvol Body: 16.50 mGy, DLP Body: 1058 mGy*cm. COMPARISON: CT abdomen and pelvis without contrast 07/13/2008. Ultrasound retroperitoneum 12/09/2021. FINDINGS: Bindery Manager View Findings, Lines and Tubes: None. Visualized Chest: Lung bases are clear. No pleural effusion. The heart is normal in size. No pericardial effusion. Diaphragm: Normal. Liver: Normal. Gallbladder: No CT evidence of gallbladder pathology. Bile ducts: No biliary ductal dilation. Spleen: Normal. Pancreas: Mildly atrophic. Adrenal glands: Normal. Kidneys and ureters: Limited evaluation secondary to overlying streak artifact. Mild perinephric stranding, nonspecific. No hydronephrosis. The previously visualized right renal stone is not seen on this study. Small hypodensities that are too small to characterize are noted. Bladder: Normal. Reproductive organs: Mild prostamegaly. Stomach, small bowel, and large bowel: Normal caliber stomach and bowel. No evidence of obstructionor surrounding inflammatory changes. Appendix: Not seen, but no evidence of appendicitis. Peritoneum and retroperitoneum: No ascites or pneumoperitoneum. No omental or mesenteric lesions. Lymph nodes: No enlarged lymph nodes. Blood vessels: Moderate atherosclerotic vascular calcification. No aortic aneurysm. No evidence of venous thrombosis. Abdominal and pelvic wall: Small left fat-containing inguinal hernia. Bones: No acute abnormality. Severe degenerative changes of the visualized spine with posterior fixation hardware of L3 and L4. Mild anterolisthesis of L3 on L4. IMPRESSION: 1. No acute abnormality in the abdomen and pelvis. 2. Small left fat-containing inguinal hernia. 3. Chronic findings as described above. I have personally reviewed the images and I agree with this report. WSN: [id number] Ordering Physician: Kassidy Millan Dictated By: Jewels Montiel DO Dictated Date/Time: 09/28/22 9:46 pm Reviewed By: Krystina Sanders MD Signed By: Krystina Sanders MD Signed Date/Time: 09/28/22 9:51 pm Transcribed By: VIJAY Transcribed Date/Time: 09/28/22 9:18 pm Vital Signs Most recent to oldest [Reference Range]: 1 2 3 Height 173 cm (09/29/22 1:02 AM) 173 cm (09/28/22 10:14 PM) 173 cm (09/28/22 6:41 PM) Weight 75 kg (09/29/22 1:02 AM) 75 kg (09/28/22 10:14 PM) 75 kg (09/28/22 6:41 PM) Oxygen Saturation [94-100 %] 95 % (09/29/22 1:02 AM) 96 % (09/28/22 10:14 PM) 94 % (09/28/22 6:41 PM) Pulse Rate [55-90 bpm] 65 bpm (09/29/22 1:02 AM) 56 bpm (09/28/22 10:14 PM) 73 bpm (09/28/22 6:41 PM) Body Mass Index [18.5-24.99 kg/m2] 25.06 kg/m2 *H* (09/29/22 1:02 AM) 25.06 kg/m2 *H* (09/28/22 10:14 PM) 25.06 kg/m2 *H* (09/28/22 6:41 PM) Blood Pressure [90-138/55-84 mm Hg] 138/116mm Hg (09/29/22 1:02 AM) 146/78mm Hg *H* (09/28/22 10:14 PM) 149/72mm Hg *H* (09/28/22 6:41 PM) Respiratory Rate [16-30 br/min] 13 br/min *L* (09/29/22 1:02 AM) 10 br/min *L* (09/28/22 10:14 PM) 20 br/min (09/28/22 6:41 PM) Temperature [96.8-100.4 DegF] 98.0 DegF (09/29/22 1:02 AM) 97.5 DegF (09/28/22 10:14 PM) 97.8 DegF (09/28/22 6:41 PM) Mode of Delivery (Oxygen) Room air (09/29/22 1:02 AM) Room air (09/28/22 10:14 PM) Room air (09/28/22 6:41 PM) Blood pressure sites Arm, left (09/29/22 1:02 AM) Arm, right (09/28/22 10:14 PM) Arm, right (09/28/22 4:59 PM) Temperature Route Oral (09/29/22 1:02 AM) Oral (09/28/22 10:14 PM) Oral (09/28/22 6:41 PM) Dry Weight 75 kg (09/29/22 1:02 AM) 75 kg (09/28/22 10:14 PM) 75 kg (09/28/22 6:41 PM) Weight Obtained Via Patient/family state d (09/28/22 4:59 PM) Dry Weight Obtained Via Patient/family s tated (09/28/22 4:59 PM) Patient Care team information Care Team Personnel Name: Rebeca Steele RN Position: S RN Member Role: Primary Care Nurse Name: Mike Jolley DO Position: Reference Physician Member Role: PCP Address: Address: [address] [place] [address] [place] [address]- [place] Name: Alayna Olivas [place] Position: [facility] RN Member Role: Primary Care Nurse Name: Shari Vela Position: [facility] ED TA [facility] Member Role: Traditional Chinese Herbalist Name: Darryl Sánchez DO Position: [facility] Resident Member Role: ED Resident Address: Address: [address] [place] [address]- Name: Vickie Taylor RN Position: [facility] ED RN W/OE and Tasks Member Role: Patient Care Provider Name: Jefry Vora DO Position: [facility] Resident Member Role: ED Attending Physician Address: Address: [address] [place] [address] Dept [place] [address]- Care Team Related Persons Name: VALERIE BOJORQUEZ Name: CINTIA BOJORQUEZ Address: home [address] [place] [address] Name: DIMPLE BOJORQUEZ Address: home [address] [place] [address]
--- OUTSIDE RECORDS SUMMARY | 2023-01-31 07:55 | XMS_ITS | Continuity of Care Document ---
Author Name Unknown Organization [facility] Address [address] [place] [address], [address] [place] [address]- Care Team Providers Care Chief Wharfinger Name Role Phone Mike Jolley DO Primary Care Physician Encounter [facility] Date(s): 04/29/22 - 05/06/22 [facility] [address] [place] [address] Drive, [address] [place], [place] [address] Attending Physician: Dedrick Reyes MD Referring Physician: Mike Jolley DO Allergies, Adverse Reactions, Alerts Substance Reaction Severity [...] 0 Refills, Maintenance, 04/02/22 14:22:00 EST, Capsule, [facility], Partial fill upon patient [...] 0, 0, 01/26/06 15:22:25, Print YOHAN Number, [id number], Constant Indicator Start Date: 01/26/06 Status: Ordered [...] 04/02/22 14:23:00 EST, Route to Pharmacy Electronically, [facility] 3, Partial fill upon patient request if the prescription is for a schedule I... Start Date: 04/02/22 Stop Date: 05/02/22 Status: Ordered Vital Signs Most recent to oldest [Reference Range]: 1 Height 172.72 cm (04/29/22 9:54 AM) Weight 79 kg (04/29/22 9:54 AM) Body Mass Index [18.5-24.99 kg/m2] 26.48 kg/m2 *H* (04/29/22 9:54 AM) Patient Care team information Care Team Personnel Name: Rebeca Steele RN Position: S RN Member Role: Primary Care Nurse Name: Mike Jolley DO Position: Reference Physician Member Role: PCP Address: Address: [address] [place] [address] Mike Jolley [place], [place] [address] Name: Alayna Laguna Position: [facility] RN Member Role: Primary Care Nurse Care Team Related Persons Name: VALERIE BOJORQUEZ Name: CINTIA BOJORQUEZ Address: [address] [place] [address] Name: DIMPLE BOJORQUEZ Address: home [address] [place] [address]
--- OUTSIDE RECORDS SUMMARY | 2023-01-31 07:55 | XMS_ITS | Continuity of Care Document ---
Author Name Unknown Organization [facility] Address [address] [place] [address] [address]mita, [address] [place] [address]- Care Team Providers Care Configuration Consultant Name Role Phone Mike Jolley DO Primary Care Physician [phone] Encounter [facility] Date(s): 04/07/22 - 05/07/22 [facility] [address] [place] [address] Drive, [address] [place], [place] [address] Allergies, Adverse Reactions, Alerts [...] 0 Refills, Maintenance, 04/02/22 14:22:00 EST, Capsule, [facility], Partial fill upon patient request [...] 0, 0, 01/26/06 15:22:25, Print YOHAN Number, [id number], Constant Indicator Start Date: 01/26/06 Status: Ordered [...] 04/02/22 14:23:00 EST, Route to Pharmacy Electronically, [facility], Partial fill upon patient request if the prescription is for a schedule I... Start Date: 04/02/22 Stop Date: 05/02/22 Status: Ordered Patient Care team information Care Team Personnel Name: Rebeca Steele RN Position: S RN Member Role: Primary Care Nurse Name: Mike Jolley DO Position: Reference Physician Member Role: PCP Address: Address: [address] [place] [address] Mike Jolley MD [place], [place] [address] Name: Alayna Laguna Position: Jerry RN Member Role: Primary Care Nurse Care Team Related Persons Name: VALERIE BOJORQUEZ Name: CINTIA BOJORQUEZ Address: [address] [place] [address] Name: DIMPLE BOJORQUEZ Address: [address] [place] [address]
--- OUTSIDE RECORDS SUMMARY | 2023-01-31 07:55 | XMS_ITS | Continuity of Care Document ---
Author Name Unknown Organization [facility] Address [address] [place] [address]- Care Team Providers Care Jig Boring Machine Operator For Metal Name Role Phone Mike Jolley DO Primary Care Physician Encounter [facility] Date(s): 01/27/22 - 02/26/22 [facility] [address] [place] [address]- Attending Physician: Getachew Zelaya Admitting Physician: Getachew Zelaya Referring Physician: [id number] Allergies, Adverse Reactions, Alerts Substance Reaction Severity [...] 0, 0, 01/26/06 15:22:25, Print YOHAN Number, [id number], Constant Indicator Start Date: 01/26/06 Status: Ordered [...] Reference Physician Member Role: PCP Address: Address: [address] [place] [address] Mike Jolley MD [place], [place] [address] Name: Alayna Laguna Position: [facility] RN Member Role: Primary Care Nurse Care Team Related Persons Name: CINTIA BOJORQUEZ Address: [address] [place] [address] Name: DIMPLE BOJORQUEZ Address: [address] [place] [address]
--- OUTSIDE RECORDS SUMMARY | 2023-01-31 07:55 | XMS_ITS | Continuity of Care Document ---
Author Name Unknown Organization [facility] Address [address] [place] [address] [address]mita, [address] [place] [address]- Care Team Providers Care Hall Coordinator Name Role Phone Mike Jolley DO Primary Care Physician [phone] Encounter [facility] Date(s): 01/25/22 - 02/01/22 [facility] [address] [place] [address] Drive, [address] [place], [place] [address] Attending Physician: Dedrick Reyes MD Referring Physician: [...] 0, 0, 01/26/06 15:22:25, Print YOHAN Number, [id number], Constant Indicator Start Date: 01/26/06 Status: Ordered [...] Constant Indicator Start Date: 01/26/06 Status: Ordered Vital Signs Most recent to oldest [Reference Range]: 1 Height 173 cm (01/25/22 2:43 PM) Weight 78.7 kg (01/25/22 2:43 PM) Body Mass Index [18.5-24.99 kg/m2] 26.3 kg/m2 *H* (01/25/22 2:43 PM) Patient Care team information Care Team Personnel Name: Mike Jolley DO Position: Reference Physician Member Role: PCP Address: Address: [address] [place] [address] [place] [address]- Name: Alayna Laguna Position: [facility] RN Member Role: Primary Care Nurse Care Team Related Persons Name: CINTIA BOJORQUEZ Address: [address] [place] [address] Name: DIMPLE BOJORQUEZ Address: [address] [place] [address]
--- OUTSIDE RECORDS SUMMARY | 2023-01-31 07:55 | XMS_ITS | Continuity of Care Document ---
Author Name Unknown Organization [facility] Address [address] [place] [address]- Care Team Providers Care Ssds Mk 2 Advanced Operator Name Role Phone Shola Mike EATS Primary Care Physician [phone] Encounter [facility] Date(s): 01/28/22 - 03/10/22 [facility] [address] [place], [place] [address] Attending Physician: Arvind Bradley MD Admitting Physician: [...] 0, 0, 01/26/06 15:22:25, Print YOHAN Number, [id number], Constant Indicator Start Date: 01/26/06 Status: Ordered [...] Reference Physician Member Role: PCP Address: Address: [address] [place] [address] [place] [address]- Name: Alayna Laguna Position: [facility] RN Member Role: Primary Care Nurse Care Team Related Persons Name: CINTIA BOJORQUEZ Address: [address] [place] [address] Name: DIMPLE BOJORQUEZ Address: [address] [place] [address]
--- OUTSIDE RECORDS SUMMARY | 2023-01-31 07:55 | XMS_ITS | Continuity of Care Document ---
Author Name Unknown Organization [facility] Address [address] [place] [address] [address]a, [address] [place] [address]- Care Team Providers Care Grey Percher Name Role Phone Mike Jolley DO Primary Care Physician [phone] Encounter [facility] Date(s): 09/27/22 - 10/27/[address], [address] [place], [place] [address] Allergies, Adverse Reactions, Alerts Substance Reaction [...] 0 Refills, Maintenance, 09/29/22 0:39:00 EDT, Tablet, [facility]/pharmacy #[id number], Partial fill upon patient request if the prescription is for a schedule II opioid drug., 173, cm, 0... Start Date: 09/29/22 Stop Date: 10/02/22 Status: Ordered docusate sodium 100 mg oral capsule 1 capsule = 100 mg, By Mouth, 2 times a day, # 28 capsule, 0 Refills, Maintenance, 04/02/22 14:22:00 EST, Capsule, [facility] 3, Partial fill upon patient request [...] 0, 0, 01/26/06 15:22:25, Print YOHAN Number, [id number], Constant Indicator Start Date: 01/26/06 Status: Ordered [...] 04/02/22 14:23:00 EST, Route to Pharmacy Electronically, [facility], Partial fill upon patient request if the prescription is for a schedule I... Start Date: 04/02/22 Stop Date: 05/02/22 Status: Ordered Patient Care team information Care Team Personnel Name: Rebeca Steele RN Position: S RN Member Role: Primary Care Nurse Name: Mike Jolley DO Position: Reference Physician Member Role: PCP Address: Address: [address] [place] [address] [place] [address]- Name: Alayna Olivas [place] Position: [facility] RN Member Role: Primary Care Nurse Care Team Related Persons Name: VALERIE BOJORQUEZ Name: CINTIA BOJORQUEZ Address: home [address] [place] [address] Name: DIMPLE BOJORQUEZ Address: [address] [place] [address]
--- OUTSIDE RECORDS SUMMARY | 2023-01-31 07:55 | XMS_ITS | Continuity of Care Document ---
Author Name Unknown Organization [facility] Address [address] [place] [address]- Care Team Providers Care Crab Butcher Name Role Phone Mike Jolley DO Primary Care Physician Encounter 04/03/22 - 04/21/22 [facility] [address] [place] [address]- Discharge Disposition: [facility] Allergies, Adverse Reactions, Alerts Substance Reaction Severity [...] 0 Refills, Maintenance, 04/02/22 14:22:00 EST, Capsule, [facility], Partial fill upon patient [...] 0, 0, 01/26/06 15:22:25, Print YOHAN Number, [id number], Constant Indicator Start Date: 01/26/06 Status: Ordered [...] 04/02/22 14:23:00 EST, Route to Pharmacy Electronically, [facility] 3, Partial fill upon patient request if the prescription is for a schedule I... Start Date: 04/02/22 Stop Date: 05/02/22 Status: Ordered Patient Care team information Care Team Personnel Name: Rebeca Steele RN Position: S RN Member Role: Primary Care Nurse Name: Mike Jolley DO Position: Reference Physician Member Role: PCP Address: Address: [address] [place] [address] [facility] [place] [place] [address] Name: Alayna Laguna Position: Jerry RN Member Role: Primary Care Nurse Care Team Related Persons Name: VALERIE BOJORQUEZ Name: CINTIA BOJORQUEZ Address: [address] [place] [address] Name: DIMPLE BOJORQUEZ Address: [address] [place] [address]
--- OUTSIDE RECORDS SUMMARY | 2023-01-31 07:55 | XMS_ITS | Continuity of Care Document ---
Author Name Unknown Organization [facility] ter Address [address] [place] [address]- Care Team Providers Care Relief Pilot Name Role Phone Mike Jolley DO Primary Care Physician [phone] Encounter [facility] Date(s): 04/09/20 - 05/10/[address] [address] Attending Physician: Lakhwinder De Souza MD Admitting Physician: Lakhwinder De Souza MD Referring Physician: Lakhwinder De Souza MD Allergies, Adverse Reactions, Alerts Substance Reaction Severity Status Adhesive Bandage rash Active Other Food Allergy cashews/ rash Active Medications Adderall 20 mg oral tablet [...] opioid drug. Start Date: 04/28/20 Status: Ordered atorvastatin 80 mg oral tablet [...] opioid drug. Start Date: 04/28/20 Status: Ordered Flomax 0.4 mg oral capsule 0.4 mg, 1, capsule, By Mouth, 2 times a day, Refills 0, Maintenance, 04/28/20 12:09:00 EST, Partialfill upon patient request if the prescription is for a schedule II opioid drug. Start Date: 04/28/20 Status: Ordered Levothroid 0.125 mg oral tablet 0.125, mg, 1, tablet, By Mouth, Daily, 0, 0, 01/26/06 15:22:25, Print YOHAN Number, [id number], Constant Indicator Start Date: 01/26/06 Status: Ordered omeprazole 40 mg oral enteric [...]
--- OUTSIDE RECORDS SUMMARY | 2023-01-31 07:55 | XMS_ITS | Continuity of Care Document ---
Author Name Unknown Organization [facility] Address [address] [place] [address]- Care Team Providers Care Head Holder Name Role Phone Mike Jolley DO Primary Care Physician [id number] Date(s): 01/27/22 - 02/26/22 [facility] [address] [address]- Attending Physician: Getachew Zelaya Admitting Physician: AdmtrGetachew Referring Physician: Admtr, Getachew Allergies, Adverse Reactions, Alerts Substance Reaction Severity [...] 0, 0, 01/26/06 15:22:25, Print YOHAN Number, [id number], Constant Indicator Start Date: 01/26/06 Status: Ordered [...] Reference Physician Member Role: PCP Address: Address: [address] [place] [address] [place] [address]- Name: Alayna Laguna Position: [facility] RN Member Role: Primary Care Nurse Care Team Related Persons Name: CINTIA BOJORQUEZ Address: [address] [place] [address] Name: DIMPLE BOJORQUEZ Address: home [address] [place] [address]
--- OUTSIDE RECORDS SUMMARY | 2023-01-31 07:55 | XMS_ITS | Continuity of Care Document ---
Author Name Unknown Organization [facility] Address [address] [place] [address] [address], [address] [place] [address]- Care Team Providers Care Clinical Biostatistics Director Name Role Phone Mike Jolley DO Primary Care Physician Encounter [facility] Date(s): 01/11/22 - 01/18/22 [facility] [address] [place] [address] Drive, [address] [place], [place] [address] Attending Physician: Dedrick Reyes MD Referring Physician: Eran Sadler MD Allergies, Adverse Reactions, Alerts Substance Reaction [...] 0, 0, 01/26/06 15:22:25, Print YOHAN Number, [id number], Constant Indicator Start Date: 01/26/06 Status: Ordered [...] oldest [Reference Range]: 1 Height 173 cm (01/11/22 9:37 AM) Weight 78.7 kg (01/11/22 9:37 AM) Body Mass Index [18.5-24.99 kg/m2] 26.3 kg/m2 *H* (01/11/22 9:37 AM) Patient Care team information Care Team Personnel Name: Mike Jolley DO Position: Reference Physician Member Role: PCP Address: Address: [address] [place] [address] Mike Jolley MD [place], [place] [address] Name: Alayna Laguna Position: [facility] RN Member Role: Primary Care Nurse Care Team Related Persons Name: CINTIA BOJORQUEZ Address: [address] [place] [address] Name: DIMPLE BOJORQUEZ Address: [address] [place] [address]
--- OUTSIDE RECORDS SUMMARY | 2023-01-31 07:56 | XMS_ITS | Continuity of Care Document ---
Author Name Unknown Organization [facility] Address [address] [place] [address], [address] [place] [address]- Care Team Providers Care Hard Candy Batch Mixer Name Role Phone Mike Jolley DO Primary Care Physician [place] [facility] Date(s): 08/08/22 - 08/15/22 [facility] [address] [place] [address] Drive, [address] [place], [place] [address] Attending Physician: Dedrick Reyes MD Referring Physician: [...] 0 Refills, Maintenance, 04/02/22 14:22:00 EST, Capsule, [facility], Partial fill upon [...] 0, 0, 01/26/06 15:22:25, Print YOHAN Number, [id number], Constant Indicator Start Date: 01/26/06 Status: Ordered [...] 04/02/22 14:23:00 EST, Route to Pharmacy Electronically, [facility], Partial fill upon patient request if the prescription is for a schedule I... Start Date: 04/02/22 Stop Date: 05/02/22 Status: Ordered Vital Signs Most recent to oldest [Reference Range]: 1 Height 172.72 cm (08/08/22 11:44 AM) Weight 77 kg (08/08/22 11:44 AM) Body Mass Index [18.5-24.99 kg/m2] 25.81 kg/m2 *H* (08/08/22 11:44 AM) Weight Obtained Via Patient/family state d (08/08/22 11:44 AM) Patient Care team information Care Team Personnel Name: Rebeca Steele RN Position: S RN Member Role: Primary Care Nurse Name: Mike Jolley DO Position: Reference Physician Member Role: PCP Address: Address: [address] [place] [address] Mike Jolley MD [place], [place] [address] Name: Alayna Olivas [place] Position: [facility] RN Member Role: Primary Care Nurse Care Team Related Persons Name: VALERIE BOJORQUEZ Name: CINTIA BOJORQUEZ Address: [address] [place] [address] Name: DIMPLE BOJORQUEZ Address: home [address] [place] [address]
--- OUTSIDE RECORDS SUMMARY | 2023-01-31 07:56 | XMS_ITS | Continuity of Care Document ---
Author Name Unknown Organization [facility] ter Address [address] [place] [id number]- Care Team Providers Care Cephalometric Analyst Name Role Phone Mike Jolley DO Primary Care Physician Encounter [facility] Date(s): 03/30/22 - 04/02/[address] [id number] Discharge Disposition: A-Transfer VNA/Home Health Attending Physician: Dedrick Reyes MD Admitting Physician: Dedrick Reyes MD Referring Physician: Dedrick Reyse MD Allergies, Adverse Reactions, Alerts Substance Reaction [...] opioid drug. Start Date: 01/11/22 Status: Ordered amLODIPine 5 mg oral tablet 5 mg, Tablet, By Mouth, 04/02/22 9:00:00 EST Start Date: 04/02/22 Stop Date: 04/02/22 Status: Completed atorvastatin 80 mg oral tablet 1 tablet [...] 0 Refills, Maintenance, 04/02/22 14:22:00 EST, Capsule, [facility], Partial fill upon patient request if [...] opioid drug. Start Date: 04/28/20 Status: Ordered HYDROmorphone 4 mg oral tablet 4 mg, Tablet, By Mouth, Every 4 hours, Hold for: sedation and/or hypotension, PRN for Pain , Moderate, Routine, 04/02/22 12:30:00 EST Start Date: 04/02/22 Stop Date: 04/03/22 Status: Discontinued HYDROmorphone 4 mg oral tablet 1 tablet = 4 mg, By Mouth, Every 4 hours, PRN Pain , Moderate, for 7 days, # 42 tablet, 0 Refills, Acute 04/09/22 14:23:00 EST, 04/02/22 14:23:00 EST, Tablet, [facility], Partial fill upon patient request if the prescription is for a nora... Start Date: 04/02/22 Stop Date: 04/09/22 Status: Ordered Levothroid 0.125 mg oral tablet 0.125, mg, 1, tablet, By Mouth, Daily, 0, 0, 01/26/06 15:22:25, Print YOHAN Number, [id number], Constant Indicator Start Date: 01/26/06 Status: Ordered [...] 14:23:00 EST, 04/02/22 14:23:00 EST, REC Powder, [facility], Partial fill upon patient request if [...] drug. Start Date: 04/28/20 Status: Ordered propranolol 60 mg oral capsule, extended release 120 mg, CR Capsule, By Mouth, 04/02/22 5:00:00 EST Start Date: 04/02/22 Stop Date: 04/02/22 Status: Completed Testosterone = 200 mg, Intramuscular, Every 14 days, 0 Refills, 01/26/06 15:23:42 EST Start Date: 01/26/06 Status: Ordered tiZANidine 4 mg oral tablet 4 mg, 1, tablet, By Mouth, Every 8 hours, # 90 tablet, Refills 0, Tot. Refills 0, Maintenance, 04/02/22 14:23:00 EST, Route to Pharmacy Electronically, [facility], Partial fill upon patient request if the prescription is for a schedule I... Start Date: 04/02/22 Stop Date: 05/02/22 Status: Ordered Results Radiology Reports * Exam Date Time Procedure Performing Provider Status 03/31/22 12:25 AM Lumbar Spine 2 or 3 Views Joanne Reyes; Auth (Verified) Notes: (Lumbar Spine 2 or 3 Views) Reason For Exam: Postop RESULT: Lumbar Spine 2 or 3 Views Lumbar Spine 2 or 3 Views Reason: Postop; Special Instructions: Please obtain upright AP Lat COMPARISON: Intraoperative CT images on 03/30/2022 and lumbar spine 01/18/2022 FINDINGS: Levoscoliosis. Status post fusion procedure at L3-L4. Stable position of the 2 sets of interpedicular screws and attached rods as well as the interspace device compared with the intraoperative images. There is a stable mild anterolisthesis of L3 on L4 as well as at L4-L5 where there is disc space narrowing. Disc space narrowing and several millimeters retrolisthesis is also present at L1-L2. Mild disc space narrowing at the lumbosacral junction. There is lower facet arthropathy. Atherosclerotic changes are noted in the aorta and proximal iliac vessels. IMPRESSION: Stable postoperative changes L3-L4 as well as multilevel degenerative changes. WSN: [id number] Ordering Physician: Lourdes Hess Dictated By: Emre Pedroza MD Dictated Date/Time: 03/31/22 8:15 am Reviewed By: Emre Pedroza MD Signed By: Emre Pedroza MD Signed Date/Time: 03/31/22 8:15 am Transcribed By: VIJAY Transcribed Date/Time: 03/31/22 8:09 am * Exam Date Time Procedure Performing Provider Status 03/30/22 11:34 AM XR O-Arm Krystina Ortega; [place] (Ve rified) Notes: (XR O-Arm) Reason For Exam: TLIF L3-L5 for spondylolisthesis RESULT: XR O-Arm HISTORY: Reason: TLIF L3-L5 for spondylolisthesis TECHNIQUE: An intraoperative noncontrast CT of the lumbar spine was performed by the neurosurgery service. 2 acquisitions were obtained, and multiplanar reconstructions were generated and reviewed. COMPARISON: Plain film examination of the lumbar spine 01/18/2022 FINDINGS: The intraoperative CT images reveal in progress TLIF at L3-L4. An intradiscal bone graft cage has been inserted at L3-L4 on the left with increase in height of the disc space. Left L3 and L4 pedicle screws have been placed. Obliquely oriented guided wires extend through the right L3 and L4 pedicles. Anterolisthesis of L3 on L4 and L4 on L5 is again noted. 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 IMPRESSION: In progress L3-L4 TLIF. WSN: [id number] Ordering Physician: Dedrick Reyes Dictated By: Ted Murray MD Dictated Date/Time: 03/30/22 12:26 p Reviewed By: Ted Murray MD Signed By: Ted Murray MD Signed Date/Time: 03/30/22 12:26 pm Transcribed By: VIJAY Transcribed Date/Time: 03/30/22 12:22 pm Vital Signs Most recent to oldest [Reference Range]: 1 2 3 Height 172.72 cm (04/01/22 3:28 PM) 172.72 cm (04/01/22 11:51 AM) 172.72 cm (04/01/22 7:41 AM) Weight 75.7 kg (03/30/22 3:38 PM) Oxygen Saturation [94-100 %] 96 % (04/02/22 11:00 AM) 97 % (04/02/22 7:00 AM) 96 % (04/02/22 6:44 AM) Pulse Rate [55-90 bpm] 51 bpm *L* (04/02/22 11:00 AM) 60 bpm (04/02/22 8:18 AM) 59 bpm (04/02/22 7:00 AM) Body Mass Index [18.5-24.99 kg/m2] 25.38 kg/m2 *H* (03/30/22 3:38 PM) Blood Pressure [90-138/55-84 mm Hg] 94/46mm Hg (04/02/22 11:00 AM) 121/61mm Hg (04/02/22 8:18 AM) 121/61mm Hg (04/02/22 8:15 AM) Respiratory Rate [16-30 br/min] 16 br/min (04/02/22 4:07 PM) 16 br/min (04/02/22 1:13 PM) 18 br/min (04/02/22 11:00 AM) Temperature [96.8-100.4 DegF] 97.8 DegF (04/02/22 11:00 AM) 97.3 DegF (04/02/22 7:00 AM) 97.7 DegF (04/02/22 6:44 AM) Liters per Minute 2 L/min (03/30/22 1:30 PM) 2 L/min (03/30/22 11:45 AM) 6 L/min (03/30/22 11:15 AM) Mode of Delivery (Oxygen) Room air (04/02/22 11:00 AM) Room air (04/02/22 7:00 AM) Room air (04/02/22 6:44 AM) Blood pressure sites Arm, left (04/02/22 11:00 AM) Arm, left (04/02/22 7:00 AM) Arm, left (04/02/22 6:44 AM) Temperature Route Oral (04/02/22 11:00 AM) Oral (04/02/22 7:00 AM) Oral (04/02/22 6:44 AM) Dry Weight 75.7 kg (03/30/22 3:38 PM) 75.7 kg (03/30/22 7:02 AM) Dry Weight Obtained Via Standing scale (03/30/22 7:02 AM) History and physical note * Event Display: History and Physical Hospital Authored Date: Note * Kathrine Alarcon RN: PERFORM Event Display: Discharge/Transfer Note Hospital Authored Date: [id number] Nursing Discharge Note Entered On: 04/02/2022 17:10 EST Performed On: 04/02/2022 17:09 EST by Kathrine Alarcon RN Nursing Discharge Note 2 Discharge Time : 04/02/2022 17:09 EST Discharge Level of Care at Discharge : Homehealth/VNA Discharge VNA/Hospice/Home Care(v001) : [facility] Patient Left Unit Via : Wheelchair Patient Accompanied Off Unit with : Responsible adult DC Instructions Provided & Signed by Pt : Yes Patient Understands D/C Instructions : Yes Patient Instructions Discharge Signed : Yes Discharge Comments : Discharge instructions reviewed with pt and all questions answered Did Pt have Specialty Bed or Wound Vac : No Kathrine Alarcon RN - 04/02/2022 17:09 EST * Mandy Marcos: MODIFY, SIGN, VERIFY, MODIFY, PERFORM Event Display: Discharge/Transfer Note Hospital Authored Date: [id number] Patient: JEFRY BOJORQUEZ Age: 77 years Sex: Male : 1945 Associated Diagnoses: None Author: Mandy Marcos Discharge Information Preoperative Diagnosis: L3-4 spondylolisthesis with right L3-4 foraminal stenosis Final Postoperative Diagnosis: L3-4 spondylolisthesis with right L3-4 foraminal stenosis Operation: Right L3-4 TLIF with bilateral screws Patient is aware of diagnosis Discharge condition: good Compared to admission: improved Functional Status: ambulatory Discharge Disposition Home: self care, family. Home care with: VNA. Discharge Date 04/02/2022 Admission Date 03/30/2022 Hospital Course Mr. Bojorquez is a 77 year old man with a PMHx significant for generalized anxiety disorder, bowel obstruction, BPH, ADD, hypothyroidism, GERD, Tremor and testicular cancer s/p radiation who underwent anelective L3-L4 TLIF on 03/30/[address] Reyes for lumbar radiculopathy refractory to conservative management. Surgery was uneventful and he recovered in the PACU and then on the surgical floor. Patients post op recovery was complicated by post procedural urinary retention, pain and constipation. Urinary retention has resolved, patients pain is controlled and patient had a BM with an aggressive bowl regiment. PT evaluated the patient and recommended home with services. He is POD # 3 and complains of incisional back pain, which is worse with changes in position. He currently denies any new weakness, new paresthesias, saddle anesthesias, chest pain, abdominal pain or fevers. He is tolerating an oral diet, ambulating, and voiding. He is able to be discharged home today with scripts sent for Rolling Walker, Dilaudid, Colace, Tizanidine, and MiraLAX. Post op recovery and wound care were discussed. Temperature 97.3 (07:46) Systolic Blood Pressure 121 (08:20) Diastolic Blood Pressure 61 (08:20) Pulse 60 (08:20) SpO2 97 (07:46) Respiratory Rate 20 (09:21) General: Appears stated age, awake, alert and anxious HEENT: Normocephalic, trachea midline Respiratory: Breathing is even and nonlabored Extremities:?? Symmetric, no edema, no calf tenderness. Skin: no obvious rashes Neurologic: posterior lumbar incisions are closed with sutures. Incisions are clean, dry and intactwithout evidence of wound breakdown or infection. Mental status: awake, alert oriented to location, date and self Speech is clear, fluent, and appropriate, follows simple and complex commands CN: tracts well around the room hearing intact to voice tremulous at baseline Motor: normal bulk and tone Lower Extremities- Hip Flexion:? 5/5 right? 5/5 left Knee Extension:? 5/5 right? 5/5 left Plantar flexion:?? 5/5 right? 5/5 left Dorsiflexion:? 5/5 right? 5/5 left EHL:? 5/5 right? 5/5 left Sensation: intact to light touch throughout upper and lower extremities Discharge Plan Discharge Disposition Discharge: home with VNA. Home Health Face to Face I certify that this patient is under my care and that I or an allowed non- physician practitioner working with me, had a [id number] encounter with the patient on this date: 04/02/2022. Physical Therapy: Functional mobility training, Home exercise program to strengthen, increase ROM. Homebound due to: Inability to ambulate without assistance, Pain, decreased strength, and endurance. Physician Signature: Mandy Marcos Diet/Activity/Patient Education/Follow Up Follow Up with: Dedrick Reyes 04/12/2022 11:30 AM; Mike Jolley DO. MEDICATION LIST (Selected) Prescriptions Prescribed Adderall 20 mg oral tablet: See Instructions, 1 tablet By Mouth 2 times a day and 3rd time as needed, # 90 tablet, 0 Refills, Maintenance, 08/17/15 10:36:17, Tablet, Fill after 09/28/15 HYDROmorphone 4 mg oral tablet: 1 tablet = 4 mg, By Mouth, Every 4 hours, PRN Pain , Moderate, for 7 days, # 42 tablet, 0 Refills, Acute 04/09/22 14:23:00 EST, 04/02/22 14:23:00 EST, [facility] Partial fill upon patient request if the prescription is for a nora... docusate sodium 100 mg oral capsule: 1 capsule = 100 mg, By Mouth, 2 times a day, # 28 capsule, 0 Refills, Maintenance, 04/02/22 14:22:00 EST, Capsule, [facility], Partial fill upon patient request if the prescription is for a schedule II opioid drug., 172.72, cm, 04/01/22... polyethylene glycol 3350 oral powder for reconstitution: = 17 Gm, By Mouth, Daily, for 15 days, dissolve in water before taking, # 255 Gm, 0 Refills, Acute 04/17/22 14:23:00 EST, 04/02/22 14:23:00 EST, REC Powder, [facility], Partial fill upon patient request if the prescription is for a sched... tiZANidine 4 mg oral tablet: 4 mg, 1, tablet, By Mouth, Every 8 hours, # 90 tablet, Refills 0, Tot.Refills 0, Maintenance, 04/02/22 14:23:00 EST, Route to Pharmacy Electronically, [facility], Partial fill upon patient request if the prescription is for a schedule I... Documented Medications Documented ALPRAZolam 0.5 mg oral tablet: 0.5 mg, 1, tablet, By Mouth, 2 times a day, PRN, Refills 0, Maintenance, for anxiety, 04/28/20 12:10:00 EST, Partial fill upon patient request if the prescription is for a schedule II opioid drug. Flomax 0.4 mg oral capsule: 0.4 mg, 1, capsule, By Mouth, 2 times a day, Refills 0, Maintenance, 04/28/20 12:09:00 EST, Partial fill upon patient request if the prescription is for a schedule II opioid drug. Levothroid 0.125 mg oral tablet: 0.125, mg, 1, tablet, By Mouth, Daily, 0, 0, 01/26/06 15:22:25, Print YOHAN Number, [id number], Constant Indicator Multivitamin: By Mouth, Daily in AM, 0 Refills, Maintenance, 01/11/22 9:41:00 EST, Partial fill upon patient request if the prescription is for a schedule II opioid drug. Testosterone: = 200 mg, Intramuscular, Every 14 days, 0 Refills, 01/26/06 15:23:42 EST acetaminophen 325 mg oral tablet: 975 mg, By Mouth, Every 6 hours, Not to exceed 4 GM of Tylenol per 24 hour period, Refills 0, Maintenance, 04/02/22 14:22:00 EST, Partial fill upon patient request if the prescription is for a schedule II opioid drug. amLODIPine 2.5 mg oral tablet: 2 tablet = 5 mg, By Mouth, Daily in AM, # 30 tablet, 0 Refills, Maintenance, 01/11/22 9:42:00 EST, Tablet, Partial fill upon patient request if the prescription is for a schedule II opioid drug. atorvastatin 80 mg oral tablet: 1 tablet = 80 mg, By Mouth, Daily at bedtime, # 30 tablet, 0 Refills, Maintenance, 04/28/20 12:11:00 EST, Tablet, Partial fill upon patient request if the prescriptionis for a schedule II opioid drug. cholecalciferol 1000 intl units oral capsule: 1 capsule = 25 mcg, By Mouth, Daily in AM, # 100 capsule, 0 Refills, Maintenance, 01/11/22 9:40:00 EST, Capsule, Partial fill upon patient request if theprescription is for a schedule II opioid drug. escitalopram 20 mg oral tablet: 1 tablet = 20 mg, By Mouth, Daily in AM, # 30 tablet, 0 Refills, Maintenance, 01/11/22 9:41:00 EST, Tablet, Partial fill upon patient request if the prescription is for a schedule II opioid drug. melatonin 10 mg oral tablet, extended release: 1 tablet = 10 mg, By Mouth, Daily at bedtime, PRN asneeded for sleep, # 60 tablet, 0 Refills, Maintenance, 03/28/22 8:40:00 EST, ER Tablet, Partial fill upon patient request if the prescription is for a schedule II opioid drug. methenamine hippurate 1 gm oral tablet: 1 tablet = 1 Gm, By Mouth, 2 times a day, # 10 tablet, 0 Refills, Maintenance, 03/28/22 8:44:00 EST, Tablet, Partial fill upon patient request if the prescription is for a schedule II opioid drug. omeprazole 40 mg oral enteric coated capsule: 1 capsule = 40 mg, By Mouth, Daily in AM, # 30 capsule, 0 Refills, Maintenance, 04/28/20 12:12:00 EST, EC Capsule, Partial fill upon patient request if the prescription is for a schedule II opioid drug. primidone 50 mg oral tablet: 100 mg, 2, tablet, By Mouth, Daily in AM, # 120 tablet, Refills 0, Maintenance, 03/28/22 8:39:00 EST, Partial fill upon patient request if the prescription is for a schedule II opioid drug. primidone 50 mg oral tablet: 50 mg, 1, tablet, By Mouth, Daily at bedtime, Refills 0, Maintenance, 04/28/20 12:13:00 EST, Partial fill upon patient request if the prescription is for a schedule II opioid drug. propranolol 120 mg oral capsule, extended release: 1 capsule = 120 mg, By Mouth, Every other day, 0Refills, Maintenance, 04/28/20 12:14:00 EST, Partial fill upon patient request if the prescription is for a schedule II opioid drug. * Kathrine Alarcon RN: PERFORM Event Display: Patient Education/Instruction Authored Date: [id number] Inpatient Adult Discharge Instructions [place] [id number] Name: JEFRY BOJORQUEZ : 1945 Visit: 03/30/2022 05:18:00 Current Date: 04/02/2022 15:42 Account: [id number] Inpatient Adult Discharge Instructions We would like to thank you for allowing us to assist you with your healthcare needs. The following includes patient education materials and information regarding your injury/illness. Our entire staffstrives to provide an excellent experience for our patients and their families. PLEASE ENSURE YOU FOLLOW-UP PER THE INSTRUCTIONS BELOW! ?? YOUR OPINION IS IMPORTANT TO US! Please complete the survey you may receive by mail or email. Your feedback will be used to make improvements to the healthcare experiences of our patients and their families. Surveys are administered by [employer]. ?? If further treatment with your primary care physician or another doctor is recommended, it is important for you to keep the appointment. Call your primary care physician or return to the Emergency Department immediately if your condition worsens, fails to improve, or new symptoms develop. If you need to find a doctor, you can call [facility] [employer] for a referral at [phone] or toll free at [phone] or log in to [email or web address].. ?? You can view and manage your care through the patient portal or by using a health care rosalind of your choosing. [employer] is a website that allows you to securely view your medical information including your hospital discharge summary, office visit summaries, medications and follow-up visits. You can also request appointments, renew medications, and request access to your medical information using a health care rosalind of your choosing, or just ask a question. You can enroll at [email or web address] or register during your next office visit. You have been discharged from [facility], Patient Care Unit: SW6. If you have any questions regarding these instructions after you leave, please call us and we will be happy to assist you. [facility] Your Care Team Attending Physician Eric IQ[employer], Dedrick Discharging Providers Mandy Marcos Reason for Admission SPONDYLOLISTHESIS RIGHT TLIF EWA MENDIETA Your Diagnosis post op TLIF Tests Performed Below is a partial list of the tests performed during your hospitalization. You may have had other tests and procedures not included in this list. Please discuss all test results with your provider. COVID-19 (NOVEL CORONAVIRUS) PCR XR Lumbar Spine 2 or 3 Views XR O-Arm Primary Care Provider Mike Jolley DO Advance Directive Health Care Proxy on File Yes - Health Care Proxy Discharge Vitals Temperature: 97.8 DegF Height: 172.72 cm Pulse Rate:??51 bpm??Low Weight: 75.7 kg Respiratory Rate: 16 br/min Body Mass Index:??25.38 kg/m2??High Systolic Blood Pressure: 94 mm Hg Body surface area: 1.91 Diastolic Blood Pressure:??46 mm Hg??Low ?? Oxygen Saturation: 96 % ?? Studies Pending All tests and labs ordered during this hospital stay have been completed unless listed below. Please discuss all pending results with your provider listed above in these instructions. ?? COVID-19 (2019 Novel Coronavirus) PCR What to do next Instructions From Your Doctor Discharge Orders Scheduled Follow-Up Appointments Monday 11:30 AM EST ?? With: Dedrick Reyes MD Where: [facility] [address] [place] [address] Drive [address] [place] [address]- You Need to Schedule the Following Appointments Follow Up with??Dedrick Reyes When??04/12/2022 11:30 AM EST Where: [address] [place] [address]- Business (1) Follow Up with??Mike Jolley DO When??In 0 days Where: [address] [place] [address] [place] [address]- Business (1) Discharge Medications JEFRY BOJORQUEZ :1945 Visit Date:03/30/2022 Medications: Please continue your medications until treatment is completed or stopped by your provider. Medications not listed below should be discontinued. Discuss any questions related to medications with your provider. What How Much When Instructions Next Dose New Acetaminophen (acetaminophen 325 mg oral tablet) 975 Milligram Oral Every 6 hours Not to exceed 4 GM of Tylenol per 24 hour period ?? 04/02/22 9pm New Docusate (docusate sodium 100 mg oral capsule) 1 capsule Oral Twice a day Duration: 14 Days Pickup at [place] [address] 04/02/22 tonight New Hydromorphone (HYDROmorphone 4 mg oral tablet) 1 tab(s) Oral Every 4 hours as needed for Pain , Moderate Duration: 7 Days Pickup at [place] [address] 04/02/22 5pm New Polyethylene Glycol 3350 (polyethylene glycol 3350 oral powder for reconstitution) 17 gram Oral Daily Duration: 15 Days dissolve in water before taking ?? Pickup at [place] [address] 04/03/22 8am New Tizanidine (tiZANidine 4 mg oral tablet) 1 tab(s) Oral Every 8 hours Duration: 30 Days Pickup at [place] [address] 04/02/22 9pm Unchanged Alprazolam (ALPRAZolam 0.5 mg oral tablet) 1 tab(s) Oral Twice a day as needed for for anxiety as needed, last given this am Unchanged Amlodipine (amLODIPine 2.5 mg oral tablet) 2 tab(s) Oral Daily in the morning 04/02/22 8am Unchanged Amphetamine-Dextroamphetamine (Adderall 20 mg oral tablet) See instructions 1 tablet By Mouth 2 times a day and 3rd time as needed ?? as needed Unchanged Atorvastatin (atorvastatin 80 mg oral tablet) 1 tab(s) Oral Daily at Bedtime 04/02/22 bedtime Unchanged Cholecalciferol (cholecalciferol 1000 intl units oral capsule) 1 capsule Oral Daily in the morning 04/03/22 am Unchanged Escitalopram (escitalopram 20 mg oral tablet) 1 tab(s) Oral Daily in the morning 04/03/22 am Unchanged Levothyroxine (Levothroid 0.125 mg oral tablet) 1 tab(s) Oral Daily 04/03/22 am Unchanged Melatonin (melatonin 10 mg oral tablet, extended release) 1 tab(s) Oral Daily at Bedtime as needed for as needed for sleep 04/02/22 as needed at bedtime Unchanged Methenamine (methenamine hippurate 1 gm oral tablet) 1 tab(s) Oral Twice a day Duration: 5 Days as directed Unchanged Multivitamin Oral Daily in the morning 04/03/22 am Unchanged Omeprazole (omeprazole 40 mg oral enteric coated capsule) 1 capsule Oral Daily in the morning 04/03/22 am Unchanged Primidone (primidone 50 mg oral tablet) 2 tab(s) Oral Daily in the morning 04/03/22 am Unchanged Primidone (primidone 50 mg oral tablet) 1 tab(s) Oral Daily at Bedtime 04/02/22 bedtime Unchanged Propranolol (propranolol 120 mg oral capsule, extended release) 1 capsule Oral Every other day as directed Unchanged Tamsulosin (Flomax 0.4 mg oral capsule) 1 capsule Oral Twice a day 04/02/22 tonight Unchanged Testosterone 200 Milligram Intramuscular Every 14 days as directed Pharmacy Information [facility]: [address] [place], [place] [id number] [phone] ?? What How Much When Comments Stop Taking Diclofenac (diclofenac sodium 75 mg oral delayed releasetablet) 1 tab(s) Oral Twice a day Test Results Below is a partial list of the most recent Laboratory test results done prior to this discharge. You may have had other tests and procedures not included in this list. Please discuss all test resultswith your provider. COVID-19 (NOVEL CORONAVIRUS) PCR (03/31/2022) ???COVID-19 PCR Specimen Source - NASAL???COVID-19 PCR Result - NEGATIVE Allergies (NKA means No Known Allergies) Adhesive Bandage??(rash) Bactrim??(Rash) Other Environmental Allergy??(Severe Rash, hair dye) Other Food Allergy??(cashews/ rash) Problems No qualifying data available Education Materials Below is the list of Educational Leaflet Providered with your Discharge Instructions. Valuables and Belongings I fully understand and agree that [facility] accepts no responsibility for all my personal property including clothing, toilet articles, radios, jewelry, dentures, hearing aids, rings, money, or any other property that is in my possession or is brought to me after admission. I understand certain valuables may be placed in a hospital safe for a short period of time. I understand that the hospital is not liable for loss or damage due to accident, fire, or other natural occurrence while said property is in the safe. I accept full responsibility for any personal property that I keep with me, and will not hold the hospital responsible in case of loss or disappearance. I acknowledge that i have been encouraged to send valuables and belongings home. ?? Review of Valuable and Belonging List: With family Date for Pt to Sign Valuables/Belongings: 03/30/22 16:01:00 ?? Other Discharge Information ? Case Management Discharge Plan?? Discharge Plan?? Discharge Agency Information?? Discharge Level of Care at Discharge: Homehealth/VNA Name of Agency #1: [facility] Discharge Rx Program: Discharge Prescription Program Agency [employer] Controller #1: Intake Discharge VNA/Hospice/Home Care: [facility] Service Categories #1: Physical Therapy ?? Service Comments #1: [facility] will contact you schedule a home visit to start your home PT. ??Please call their office with any questions. ?? Pulmonary Rehab Status?? Pulmonary Rehab Discharge Status?? Respiratory Rate: 16 br/min ? Common Emergency Awareness Tips IS IT A STROKE? Act FAST and Check for these signs: FACE Does the face look uneven? ARM Does one arm drift down? SPEECH Does their speech sound strange? TIME Call at any sign of stroke ?? Heart Attack Signs Chest discomfort: Most heart attacks involve discomfort in the center of the chest and lasts more than a few minutes, or goes away and comes back. It can feel like uncomfortable pressure, squeezing, fullness or pain. Discomfort in upper body: Symptoms can include pain or discomfort in one or both arms, back, neck, jaw or stomach. Shortness of breath: With or without discomfort. Other signs: Breaking out in a cold sweat, nausea, or lightheaded. Remember, MINUTES DO MATTER. If you experience any of these heart attack warning signs, call to get immediate medical attention! ?? Smoking can increase your chances of developing chronic health problems and can cause harmful effects to other family members in your house. If you smoke, you are strongly encouraged to quit. Please call [facility] [employer] at [phone] or 8-526-098[employer] ([phone]) or log in to [email or web address] for referrals to smoking cessation programs. ?? The National Suicide Prevention Hotline is available 19/09 if you or someone you know needs to find a reason to keep living. By calling 7-953-462-[employer] (8512) you'll be connected to a skilled, trained counselor at a crisis center in your area. INPATIENT DISCHARGE INSTRUCTIONS SIGNATURE PAGE JEFRY BOJORQUEZ Location:[facility] Registration Date and Time:03/30/2022 05:18 EST Primary Care Physician: Mike Jolley DO, I JEFRY BOJORQUEZ, have received the above patient education materials/instructions and have verbalized understanding. If ambulance or transport services are being used I further acknowledge being givena choice of service. ?? If you need to contact me, please call me at this number: . Patient/Shield Installer Name: Patient/Shield Installer Signature: Relationship to Patient: Witness Name/Signature: Date: * Mandy Marcos R: SIGN, PERFORM, SIGN, VERIFY Event Display: Patient Education Handout Authored Date: * Event Display: Adult Preadmission Health Questionnaire Authored Date: * Ted Murray MD: VERIFY Ted Murray MD: VERIFY Event Display: Result: Authored Date: HISTORY: Reason: TLIF L3-L5 for spondylolisthesis TECHNIQUE: An intraoperative noncontrast CT of the lumbar spine was performed by the neurosurgery service. 2 acquisitions were obtained, and multiplanar reconstructions were generated and reviewed. COMPARISON: Plain film examination of the lumbar spine 01/18/2022 FINDINGS: The intraoperative CT images reveal in progress TLIF at L3-L4. An intradiscal bone graft cage has been inserted at L3-L4 on the left with increase in height of the disc space. Left L3 and L4 pedicle screws have been placed. Obliquely oriented guided wires extend through the right L3 and L4 pedicles. Anterolisthesis of L3 on L4 and L4 on L5 is again noted. 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 IMPRESSION: In progress L3-L4 TLIF. WSN: [id number] Ordering Physician: Dedrick Reyes Dictated By: Ted Murray MD Dictated Date/Time: 03/30/22 12:26 p Reviewed By: Ted Murray MD Signed By: Ted Murray MD Signed Date/Time: 03/30/22 12:26 pm Transcribed By: VIJAY Transcribed Date/Time: 03/30/22 12:22 pm Hospital Progress note * Kathrine Alarcon RN: PERFORM, SIGN, VERIFY, MODIFY, SIGN Event Display: Progress Note Hospital Authored Date: Patient: JEFRY BOJORQUEZ Age: 77 years Sex: Male : 1945 Associated Diagnoses: None Author: aKthrine Alarcon RN Findings Problem Related to Alteration in Neurological : Alteration in Neurological Function/new 04/02/2022 9:00 EST Alteration in Neuro status Related to Neurology Procedure, Other: TLIF Goals & Outcomes, Neurological Lab studies/diagnostic tests within pt specific limits, Pt is safe with transfers & activities, Pt will be discharged without infection, Pt will be hemodynamically stable, Pt will be Neurologically stable, Pt will become pain free with appropriate intervention, Pt will maintain intact skin integrity, Pt will remain free from injury, Pt will resume/maintain ad equate cardiac output, Pt will state importance of adhering to medication regime, Pt/caregiver willreceive psychosocial support as needed, Pt/caregiver will state understanding of rehab plan, Pt/caregiver will state strategies to reduce risk factors, Pt/caregiver will state understanding aspiration precautions, Pt/caregiver will state understanding dietary modifications, Pt/caregiver will state understanding of disease process, Pt/caregiver will state understanding of plan/goals of care, Pt/caregiver will state understanding of the D/C plan Interventions, Neurological Assess/monitor for abnormal posturing, Assess/monitor for gaze pattern/extraocular movements, Assess/monitor for increased Intracranial Pressure, Assess/monitor neurologicstatus, Assess/monitor VS per unit standards & prn, Call/Report variances in assessments to provider, Teach & encourage deep breath & cough exercises, Teach and encourage use of Incentivespirometer, Teach pt/caregiver discharge plan & follow up care Goals/Interventions, Neurological Yes Neurological, Problem Start 03/30/2022 18:12 Reviewed plan with, Neurological Patient Patient Progression, Neurological Pt progressing according to plan . Nursing Data Neurological Data. : Neurological Data. 04/02/2022 9:52 EST Neurological Symptoms Back pain, Tremors Orientated to person, place, time Person, Place, Time, Event 1 - 10 Pain Scale Score 10 Pain Interventions Non-pharmacological, Pharmacological, PRN medication, Repositioning, Rest Neuro WNL except . Evaluation Pt alert and oriented x4. Pain control was the focus for the day, pt reporting 10/10 pain this am, IV Dilaudid was given, PRAVEEN Navarro notified,and pain regimen ultimately adjusted. Bowel medications given, including suppository. Pt had a BM. Neuros intact: +qllzz-qbzdwks-pleywez, equal and strong hand grasps, no numbness/tingling. Pt had essential tremors at baseline, and during the period of high level s of pain, pt was shaking. The 4 mg. Dilaudid worked for pt, and reported 4/10 pain. Multimodal pain management, including Tizanidine for spasms. Pt tolerating diet. ambulated full lap around unit after pain manageable. Provided pt with a walker to use of home. Discharge instructions reviewed with pt and partner and all questions answered. Left via wheelchair at 1710.. Discharge Information Case Management Discharge Plan : Case Management Discharge Plan Data 04/02/2022 17:09 EST Discharge Level of Care at Discharge Homehealth/VNA Discharge VNA/Hospice/Home Care [facility] 03/31/2022 14:58 EST Discharge Level of Care at Discharge Homehealth/VNA Discharge VNA/Hospice/Home Care [facility] Name of Agency #1 [facility] Agency [place] [employer] #1 Intake Service Categories #1 Physical Therapy Service Comments #1 [facility] will contact you schedule a home visit to start your home PT. Please call their office with any questions. Rehabilitation Discharge : Rehab Discharge Index 04/01/2022 9:09 EST Walker: distance >50 03/31/2022 9:09 EST Comments on treatment indicated 77M s/p R L3-4 TLIF (Dr. Lara). Spine precautions. PT for bed mob, trans, amb c RW, stairs. Dual POC at this time, likely home w services and RW pending ability to navigate stairs. Walker: distance 20-50 Distance pt will ambulate >100' Full chart review completed Yes Hospital course Per CIS Other findings Mod complexity 03/31 PMH and reason for hospitalization Plan of care PT Gait training, Transfer training, Therapeutic exercise, Functional Activities, Balance training * Fauzia Hyman RN: MODIFY, SIGN, PERFORM, SIGN, VERIFY, MODIFY, SIGN Event Display: Progress Note Hospital Authored Date: Patient: JEFRY BOJORQUEZ Age: 77 years Sex: Male : 1945 Associated Diagnoses: None Author: Fauzia Hyman RN Findings Problem Related to Alteration in Neurological : Alteration in Neurological Function/new 04/01/2022 20:00 EST Alteration in Neuro status Related to Neurology Procedure, Other: TLIF Goals & Outcomes, Neurological Lab studies/diagnostic tests within pt specific limits, Pt is safe with transfers & activities, Pt will be discharged without infection, Pt will be hemodynamically stable, Pt will be Neurologically stable, Pt will become pain free with appropriate intervention, Pt will maintain intact skin integrity, Pt will remain free from injury, Pt will resume/maintain ad equate cardiac output, Pt will state importance of adhering to medication regime, Pt/caregiver willreceive psychosocial support as needed, Pt/caregiver will state understanding of rehab plan, Pt/caregiver will state strategies to reduce risk factors, Pt/caregiver will state understanding aspiration precautions, Pt/caregiver will state understanding dietary modifications, Pt/caregiver will state understanding of disease process, Pt/caregiver will state understanding of plan/goals of care, Pt/caregiver will state understanding of the D/C plan Interventions, Neurological Assess/monitor for abnormal posturing, Assess/monitor for gaze pattern/extraocular movements, Assess/monitor neurologic status, Assess/monitor VS per unit standards & prn, Call/Report variances in assessments to provider, Collaborate with provider re: medication regime, Document & Monitor O2 Sats; Administer O2 as ordered, If no bowel movement in 3 days activate bowel regime, Keep patient's head & body in good alignment, Monitor Fluid & Electrolytes, Serum Osmolarity, Monitor for headaches, nausea, vomiting, Monitor speech fluency, aphasia, word finding difficulty, Physical assessment per unit standards, Teach pt/caregiver on use of pain scale, Assess wound(s) for signs & symptoms of infection, Assess/monitor color/motion/sensation, Obtain assistive devices as needed BH Goals/Interventions, Neurological Yes Neurological, Problem Start 03/30/2022 18:12 Reviewed plan with, Neurological Patient Patient Progression, Neurological Pt progressing according to plan . Nursing Data Vital Signs : VITAL SIGNS SECTION 04/01/2022 23:54 EST Early Warning Score 2.00 04/01/2022 23:54 EST Systolic Blood Pressure 120 mm Hg Diastolic Blood Pressure 90 mm Hg H Blood pressure sites Arm, left 04/01/2022 20:07 EST Early Warning Score 2.00 04/01/2022 20:07 EST Temperature 97.5 DegF Temperature Route Oral Pulse Rate 60 bpm Respiratory Rate 18 br/min Systolic Blood Pressure 125 mm Hg Diastolic Blood Pressure 63 mm Hg Blood pressure sites Arm, left Pulse Pressure 62 mm Hg Oxygen Saturation 100 % Mode of Delivery (Oxygen) Room air . Narrative/Incidental Pt is alert and oriented x4. VSS. Pain 8/10, treated with prn oxycodone and tylenol. Hard of hearing to the left ear. Tremor noted at baseline. Numbness to RLE. Denies dizziness. Positive color and movement. No edema present. Lungs were clear to auscultation, denies shortness of breath. Hypoactive bowel sounds. Abdomen soft, round, and nontender. Passing gas, denies nausea and vomiting. Pt is voiding and ambulates as a stand-by assist. X3 DSD with tegaderm to lower back, clean dry and intact. Call feliz is within reach and bed set to the lowest position. PRAVEEN Ordoñez said it was alright to give another 5mg of oxycodone at appoximately 2000 after it beinggiven at approximately 1900 as pt did not want to take full oxy 10mg prn dose at the time. Team wasalso notified regarding pt's normal home dose of alprazolam which has since been modified. No additional orders at this time. BP 90/40's and HR 50 at approximately 0500. PRAVEEN Ordoñez stated to hold the propranolol and stagger the oxycodone with the alprazolam depending on BP and HR. No additional orders at this time. . Discharge Information Case Management Discharge Plan : Case Management Discharge Plan Data 03/31/2022 14:58 EST Discharge Level of Care at Discharge Homehealth/VNA Discharge VNA/Hospice/Home Care [facility] Name of Agency #1 [facility] Agency [employer] Controller #1 Intake Service Categories #1 Physical Therapy Service Comments #1 [facility] will contact you schedule a home visit to start your home PT. Please call their office with any questions. Rehabilitation Discharge : Rehab Discharge Index 04/01/2022 9:09 EST Walker: distance >50 03/31/2022 9:09 EST Comments on treatment indicated 77M s/p R L3-4 TLIF (Dr. Lara). Spine precautions. PT for bed mob, trans, amb c RW, stairs. Dual POC at this time, likely home w services and RW pending ability to navigate stairs. Walker: distance 20-50 Distance pt will ambulate >100' Full chart review completed Yes Hospital course Per CIS Other findings Mod complexity 2/2 PMH and reason for hospitalization Plan of care PT Gait training, Transfer training, Therapeutic exercise, Functional Activities, Balance training * Dorian AVILEZ, Kathrine: PERFORM, SIGN, VERIFY Event Display: Progress Note Hospital Authored Date: [id number] Patient: JEFRY BOJORQUEZ Age: 77 years Sex: Male : 1945 Associated Diagnoses: None Author: Dorian AVILEZ, Kathrine Findings Problem Related to Alteration in Neurological : Alteration in Neurological Function/new 04/01/2022 9:00 EST Alteration in Neuro status Related to Neurology Procedure, Other: TLIF Goals & Outcomes, Neurological Lab studies/diagnostic tests within pt specific limits, Pt is safe with transfers & activities, Pt will be discharged without infection, Pt will be hemodynamically stable, Pt will be Neurologically stable, Pt will become pain free with appropriate intervention, Pt will maintain intact skin integrity, Pt will remain free from injury, Pt will resume/maintain ad equate cardiac output, Pt will state importance of adhering to medication regime, Pt/caregiver willreceive psychosocial support as needed, Pt/caregiver will state understanding of rehab plan, Pt/caregiver will state strategies to reduce risk factors, Pt/caregiver will state understanding aspiration precautions, Pt/caregiver will state understanding dietary modifications, Pt/caregiver will state understanding of disease process, Pt/caregiver will state understanding of plan/goals of care, Pt/caregiver will state understanding of the D/C plan Interventions, Neurological Assess/monitor for abnormal posturing, Assess/monitor for gaze pattern/extraocular movements, Assess/monitor for increased Intracranial Pressure, Assess/monitor neurologicstatus, Teach & encourage deep breath & cough exercises, Teach and encourage use of Incentive spirometer, Teach pt/caregiver discharge plan & follow up care Goals/Interventions, Neurological Yes Neurological, Problem Start 03/30/2022 18:12 Reviewed plan with, Neurological Patient, Spouse/significant other Patient Progression, Neurological Plan Initiation . Nursing Data Neurological Data. : Neurological Data. 04/01/2022 8:35 EST Neurological Symptoms Numbness Orientated to person, place, time Person, Place, Time, Event Hallucinations None Gait Steady Neuro WNL except . Evaluation Pt alert and oriented x4. Denied pain. Lung sounds CTA, remains of Room air. Denies SOB. Pain managed to good effect with rest/repositioning. Pt OOB with standby assist, ambulated in hallways and in room. OOB to chair. 3 lower back dressing CDI. Neuros: slight numbness to RLE. +pp, CCMS. + dorsi-plantar- flexion. Equal and strong hand grasps. Pt with hypoactive bs/ abdomen soft/round/tender. Last BM 03/29. Pt given bowel medications- Colace, miralax and prune juice. Voiding cyu in Br. Will continue to monitor. . Discharge Information Case Management Discharge Plan : Case Management Discharge Plan Data 03/31/2022 14:58 EST Discharge Level of Care at Discharge Homehealth/VNA Discharge VNA/Hospice/Home Care [facility] Name of Agency #1 [facility] Agency [employer] Controller #1 Intake Service Categories #1 Physical Therapy Service Comments #1 [facility] will contact you schedule a home visit to start your home PT. Please call their office with any questions. Rehabilitation Discharge : Rehab Discharge Index 04/01/2022 9:09 EST Walker: distance >50 03/31/2022 9:09 EST Comments on treatment indicated 77M s/p R L3-4 TLIF (Dr. Lara). Spine precautions. PT for bed mob, trans, amb c RW, stairs. Dual POC at this time, likely home w services and RW pending ability to navigate stairs. Walker: distance 20-50 Distance pt will ambulate >100' Full chart review completed Yes Hospital course Per CIS Other findings Mod complexity / PMH and reason for hospitalization Plan of care PT Gait training, Transfer training, Therapeutic exercise, Functional Activities, Balance training XR Lumbar spine 2 or 3 Views * BHSPowerscrirose , CIS S: TALON Pedroza MD, Emre H: VERIFY Event Display: Result: Authored Date: [id number] Lumbar Spine 2 or 3 Views Reason: Postop; Special Instructions: Please obtain upright AP Lat COMPARISON: Intraoperative CT images on 03/30/2022 and lumbar spine 01/18/2022 FINDINGS: Levoscoliosis. Status post fusion procedure at L3-L4. Stable position of the 2 sets of interpedicular screws and attached rods as well as the interspace device compared with the intraoperative images. There is a stable mild anterolisthesis of L3 on L4 as well as at L4-L5 where there is disc space narrowing. Disc space narrowing and several millimeters retrolisthesis is also present at L1-L2. Mild disc space narrowing at the lumbosacral junction. There is lower facet arthropathy. Atherosclerotic changes are noted in the aorta and proximal iliac vessels. IMPRESSION: Stable postoperative changes L3-L4 as well as multilevel degenerative changes. WSN: [id number] Ordering Physician: Lourdes Hess Dictated By: Emre Pedroza MD Dictated Date/Time: 03/31/22 8:15 am Reviewed By: Emre Pedroza MD Signed By: Emre Pedroza MD Signed Date/Time: 03/31/22 8:15 am Transcribed By: VIJAY Transcribed Date/Time: 03/31/22 8:09 am Patient Care team information Care Team Personnel Name: Rebeca Steele RN Position: S RN Member Role: Primary Care Nurse Name: Mike Jolley DO Position: Reference Physician Member Role: PCP Address: Address: [address] [place] [address] Mike [place], [place] [address] Name: Alayna Laguna Position: [facility] RN Member Role: Primary Care Nurse Care Team Related Persons Name: CINTIA BOJORQUEZ Address: home [address] [place] [address] Name: DIMPLE BOJORQUEZ Address: home [address] [place] [address]
--- OUTSIDE RECORDS SUMMARY | 2023-01-31 07:56 | XMS_ITS | Continuity of Care Document ---
Author Name Unknown Organization [facility] ter Address [address] [place] [id number]- Care Team Providers Care Project Engineer Name Role Phone Mike Jolley DO Primary Care Physician [phone] Encounter [facility] Date(s): 04/28/20 - 04/28/[address] [id number] Discharge Disposition: A-D/C Home Attending Physician: Lakhwinder De Souza MD Admitting [...] 0, 0, 01/26/06 15:22:25, Print YOHAN Number, [id number], Constant Indicator Start Date: 01/26/06 Status: Ordered [...] recent to oldest [Reference Range]: 1 2 Height 173 cm (04/28/20 8:36 AM) 173 cm (04/28/20 8:33 AM) Weight 78.7 kg (04/28/20 8:36 AM) 78.7 kg (04/28/20 8:33 AM) Oxygen Saturation [94-100 %] 98 % (04/28/20 8:36 AM) Pulse Rate [55-90 bpm] 64 bpm (04/28/20 8:36 AM) Body Mass Index [18.5-24.99] 26.3 *H* (04/28/20 8:36 AM) Blood Pressure [90-138/55-84 mm Hg] 153/ 80mm Hg *H* (04/28/20 8:36 AM) Respiratory Rate [16-30 br/min] 10 br/mi n *L* (04/28/20 8:36 AM) Temperature [96.8-100.4 DegF] 98.3 DegF (04/28/20 8:36 AM) Mode of Delivery (Oxygen) Room air (04/28/20 8:36 AM) Blood pressure sites Arm, right (04/28/20 8:36 AM) Temperature Route Temporal (04/28/20 8:36 AM) Dry Weight 78.7 kg (04/28/20 8:36 AM) 78.7 kg (04/28/20 8:33 AM) Weight Obtained Via Standing scale (04/28/20 8:36 AM) Standing scale (04/28/20 8:33 AM) Dry Weight Obtained Via Standing scale (04/28/20 8:36 AM) Standing scale (04/28/20 8:33 AM)
--- OUTSIDE RECORDS SUMMARY | 2023-01-31 07:56 | XMS_ITS | Continuity of Care Document ---
Author Name Unknown Organization [facility] ter Address [address] [place] [id number]- Care Team Providers Care Program Aide Name Role Phone Mike Jolley DO Primary Care Physician Encounter [facility] Date(s): 03/31/22 - 04/30/[address] [id number] Attending Physician: Not on Staff, Attending MD Admitting Physician: Not on Staff, Admitting MD Referring Physician: Not on Staff, Referring MD [...] 0 Refills, Maintenance, 04/02/22 14:22:00 EST, Capsule, [facility], Partial fill upon patient [...] 0, 0, 01/26/06 15:22:25, Print YOHAN Number, [id number], Constant Indicator Start Date: 01/26/06 Status: Ordered [...] 04/02/22 14:23:00 EST, Route to Pharmacy Electronically, [facility], Partial fill upon patient request if the prescription is for a schedule I... Start Date: 04/02/22 Stop Date: 05/02/22 Status: Ordered Patient Care team information Care Team Personnel Name: Rebeca Steele RN Position: S RN Member Role: Primary Care Nurse Name: Mike Jolley DO Position: Reference Physician Member Role: PCP Address: Address: [address] [place] [address] Mike Jolley MD [place], [place] [id number] Name: Alayna Laguna Position: [facility] RN Member Role: Primary Care Nurse Care Team Related Persons Name: VALERIE BOJORQUEZ Name: CINTIA BOJORQUEZ Address: home [address] [place] [address] Name: DIMPEL BOJORQUEZ Address: home [address] [place] [address]
--- OUTSIDE RECORDS SUMMARY | 2023-01-31 07:56 | XMS_ITS | Continuity of Care Document ---
Author Name Unknown Organization [facility] Address [address] [place] [address], [address] [place] [address]- Care Team Providers Care Coiled Tubing Operator Name Role Phone Mike Jolley DO Primary Care Physician Encounter [facility] Date(s): 06/06/22 - 06/13/22 [facility] [address] [place] [address] Drive, [address] [place], [place] [address] Attending Physician: Dedrick Reyes MD Referring Physician: [...] 0 Refills, Maintenance, 04/02/22 14:22:00 EST, Capsule, [facility], Partial fill upon patient request [...] 0, 0, 01/26/06 15:22:25, Print YOHAN Number, [id number], Constant Indicator Start Date: 01/26/06 Status: Ordered [...] 04/02/22 14:23:00 EST, Route to Pharmacy Electronically, [facility], Partial fill upon patient request if the prescription is for a schedule I... Start Date: 04/02/22 Stop Date: 05/02/22 Status: Ordered Vital Signs Most recent to oldest [Reference Range]: 1 Height 172.72 cm (06/06/22 10:27 AM) Weight 79.0 kg (06/06/22 10:27 AM) Body Mass Index [18.5-24.99 kg/m2] 26.48 kg/m2 *H* (06/06/22 10:27 AM) Patient Care team information Care Team Personnel Name: Rebeca Steele RN Position: S RN Member Role: Primary Care Nurse Name: Mike Jolley DO Position: Reference Physician Member Role: PCP Address: Address: [address] [place] [address] Mike Jolley MD [place], [place] [address] Name: Alayna Laguna Position: [facility] RN Member Role: Primary Care Nurse Care Team Related Persons Name: VALERIE BOJORQUEZ Name: CINTIA BOJORQUEZ Address: home [address] [place] [address] Name: DIMPLE BOJORQUEZ Address: [address] [place] [address]
--- OUTSIDE RECORDS SUMMARY | 2023-01-31 07:56 | XMS_ITS | Continuity of Care Document ---
Author Name Unknown Organization [facility] Address [address] [place] [address], [address] [place] [address]- Care Team Providers Care Supply Chain Systems Manager Name Role Phone Mike Jolley DO Primary Care Physician Encounter [facility] Date(s): 08/08/22 - 09/07/[address], [address] [place], [place] [address] Attending Physician: Admtr, Ar8 Admitting Physician: Admtr, Ar8 Referring Physician: Admtr, Ar8 Allergies, Adverse Reactions, Alerts Substance Reaction Severity Status Bactrim Rash Active Adhesive Bandage rash Active Other Environmental Allergy Severe Rash hair dye Active Other Food Allergy cashews/ rash Active Immunizations Given and Recorded Vaccine Date [...] 0 Refills, Maintenance, 04/02/22 14:22:00 EST, Capsule, [facility], Partial fill [...] 0, 0, 01/26/06 15:22:25, Print YOHAN Number, [id number], Constant Indicator Start Date: 01/26/06 Status: Ordered [...] 04/02/22 14:23:00 EST, Route to Pharmacy Electronically, [facility], Partial fill upon patient request if the prescription is for a schedule I... Start Date: 04/02/22 Stop Date: 05/02/22 Status: Ordered Patient Care team information Care Team Personnel Name: Rebeca Steele RN Position: Jerry RN Member Role: Primary Care Nurse Name: Mike Jolley DO Position: Reference Physician Member Role: PCP Address: Address: [address] [place] [address] Mike Jolley MD [place], [place] [address] Name: Alayna Olivas [place] Position: [facility] RN Member Role: Primary Care Nurse Care Team Related Persons Name: VALERIE BOJORQUEZ Name: CINTIA BOJORQUEZ Address: home [address] [place] [address] Name: DIMPLE BOJORQUEZ Address: home [address] [place] [address]
--- OUTSIDE RECORDS SUMMARY | 2023-01-31 07:56 | XMS_ITS | Continuity of Care Document ---
Author Name Unknown Organization [facility] Address [address] [place] [address], [address] [place] [address]- Care Team Providers Care Nanny Caregiver Name Role Phone Mike Jolley DO Primary Care Physician Encounter [facility] Date(s): 04/12/22 - 04/19/22 [facility] [address] [place] [address] Drive, [address] [place], [place] [address] Attending Physician: Dedrick Reyes MD Referring [...] 0 Refills, Maintenance, 04/02/22 14:22:00 EST, Capsule, [facility], Partial fill upon patient [...] 0, 0, 01/26/06 15:22:25, Print YOHAN Number, [id number], Constant Indicator Start Date: 01/26/06 Status: Ordered [...] 04/02/22 14:23:00 EST, Route to Pharmacy Electronically, [facility], Partial fill upon patient request if the prescription is for a schedule I... Start Date: 04/02/22 Stop Date: 05/02/22 Status: Ordered Vital Signs Most recent to oldest [Reference Range]: 1 Height 172.72 cm (04/12/22 11:35 AM) Weight 79 kg (04/12/22 11:35 AM) Body Mass Index [18.5-24.99 kg/m2] 26.48 kg/m2 *H* (04/12/22 11:35 AM) Patient Care team information Care Team Personnel Name: Rebeca Steele RN Position: S RN Member Role: Primary Care Nurse Name: Mike Jolley DO Position: Reference Physician Member Role: PCP Address: Address: [address] [place] [address] Mike Jolley MD [place], [place] [address] Name: Alayna Laguna Position: [facility] RN Member Role: Primary Care Nurse Care Team Related Persons Name: VALERIE BOJORQUEZ Name: CINTIA BOJORQUEZ Address: home [address] [place] [address] Name: DIMPLE BOJORQUEZ Address: [address] [place] [address]
--- OUTSIDE RECORDS SUMMARY | 2023-01-31 07:56 | XMS_ITS | Patient Health Record ---
Author Name Unknown Organization Mike Jolley DO, [facility] Address [address] [place] [place] [id number] Care Team Providers Care Time Buyer Name Role Phone Mike Jolley Primary Care Provider Lino Liao MD Unavailable Unavailable ALLERGIES Allergen (clinical drug ingredient) Drug/Non Drug Allergy documented on EMR Reaction Allergy Type Onset Date Status sulfamethoxazole / trimethoprim Bactrim DS skin sores, itch Drug Allergy Active RESULTS Component Value Reference Range Notes Complete Blood Count Auto Di ff Reviewed date:03/02/2022 03:47:30 PM Interpretation:Abnormal Performing Lab:[facility], [address] [place] [phone] Notes/Report: White Blood Count 7.1 4.8-10.8 X10*3/uL Red Blood Count 5.57 4.60-5.80 X10*6/uL Hemoglobin 17.8 14.0-18.0 g/dl Hematocrit 53.6 42.0-52.0 % Mean Corpuscular Volume 96.2 80.0-98.0 fL Mean Corpuscular Hemoglobin 32.0 27.0-33.0 pg Mean Corpuscular HGB Conc 33.2 31.0-36.0 g/dl Red Cell Distribution Width 13.8 11.0-16.0 % Platelet Count 204 160-400 X10*3/uL Mean Platelet Volume 11.2 9.4-12.4 fL Neutrophils Percent Auto 70.0 45-73 % Imm Gran Pct Auto 0.3 0.0-0.4 % Lymphocytes Percent Auto 17.5 20-40 % Monocytes Percent Auto 10.1 2-11 % Eosinophils Percent Auto 1.5 0-4 % Basophils Percent Auto 0.6 0-2 % NRBC Pct Auto 0.0 0.0-0.2 /100WBC Neutrophils Absolute Auto 5.0 2.0-8.3 x10*3/u L Imm Gran Abs Auto 0.02 0.00-0.03 X10*3/uL Lymphocytes Absolute Auto 1.2 1.2-4.9 X10*3/u L Monocytes Absolute Auto 0.7 0.1-1.2 X10*3/uL Eosinophils Absolute Auto 0.1 0.0-0.4 X10*3/u L Basophils Absolute Auto 0.0 0.0-0.2 X10*3/uL NRBC Abs Auto 0.000 0.0-0.012 X10*3/uL Prothrombin Time INR Reviewed date:03/02/2022 03:47:55 PM Interpretation:Normal Performing Lab:[address] [phone] Notes/Report: Prothrombin Time 10.4 10.0-13.1 SEC INTERNATIONAL NORM RATIO 0.9 0.9-1.1 INTERNATIONAL NORMALIZED RATIO (INR) REFERENCE RANGES Reference Range For patients not on anticoagulant therapy: 0.9 - 1.1 INR ranges for oral anticoagulant therapy: For prevention and treatment of venous thrombosis and pulmonary embolism: 2.0 - 3.0 For acute myocardial infarction with aspirin therapy: 2.0 - 3.0 For acute myocardial infarction without aspirin therapy: 3.0 - 4.0 For patients with mechanical prosthetic heart valves: 2.5 - 3.5 Urinalysis and Microscopic Reviewed date:03/02/2022 03:47:30 PM Interpretation:Abnormal Performing Lab:[address] [phone] Notes/Report: Color Urine Dark Yellow Appearance Urine Clear PH 5.5 5.0-9.0 Glucose Urine UA Negative Negative mg/dL Urine Blood Negative Negative Specific [place] - Urine 1.025 1.005-1.025 Urine Protein Trace Neg-Trace mg/dL Urine Ketones Trace Negative mg/dL Nitrite Urine Negative Negative Leukocyte Esterase Urine Trace Negative RBC Urine 0-2 0-2 /HPF WBC Urine 0-5 0-5 /HPF Squamous Epithelial Cell Urine 0-2 0-2 /HPF Bacteria Urine None Seen None Seen Hyaline Casts Urine 0-2 0-2 /LPF Comprehensive Met. Panel Reviewed date:03/02/2022 05:05:32 PM Interpretation:Abnormal Performing Lab:[facility], [address] [place] [phone] Notes/Report: Sodium 139 135-145 mmol/L Potassium 5.4 3.3-5.1 mmol/L Chloride 100 96-108 mmol/L Carbon Dioxide 32 22-29 mmol/L Anion Gap 12 12-20 Blood Urea Nitrogen 11 9-16 mg/dL Creatinine 1.13 0.5-1.4 mg/dL Estimated Glomerular Filt Rate > 60 NOTE: For -Tuval[place] individuals, multiply the result by 1.210. Chronic Kidney Disease: Estimated GFR < 60 mL/min/1.73m2 Severe Kidney Disease: Estimated GFR < 15 mL/min/1.73m2 Glucose Random 111 60-115 mg/dL Calcium 10.6 8.4-10.2 mg/dL Bilirubin Total 0.8 0.0-1.0 mg/dL Aspartate Amino Transferase 33 5-37 U/L Alanine Aminotransferase 17 0-40 U/L Total Protein 7.9 6.5-8.0 g/dL Albumin Level 4.4 3.5-5.0 g/dL Alkaline Phosphatase 80 39-117 U/L Thyroid Stimulating Hormone Reviewed date:03/02/2022 05:05:08 PM Interpretation:Normal Performing Lab:[facility], [address] [place] [phone] Notes/Report: Thyroid Stimulating Hormone 0.42 0.32-4.0 uIU/ mL TSH 3rd Generation ([facility]) Urine Culture Reviewed date:03/03/2022 11:25:12 AM Interpretation:Negative Performing Lab:[facility], [address] [place] [phone] Notes/Report: Urine Culture No growth. Basic Metabolic Panel Reviewed date:01/16/2023 04:49:55 PM Interpretation:Abnormal Performing Lab:[facility], [address] [place] [phone] Notes/Report: Sodium 137 135-145 mmol/L Potassium 4.3 3.3-5.1 mmol/L Chloride 102 96-108 mmol/L Carbon Dioxide 31 22-29 mmol/L Anion Gap 8 12-20 Blood Urea Nitrogen 19 9-16 mg/dL Creatinine 1.09 0.5-1.4 mg/dL Estimated Glomerular Filt Rate > 60 NOTE: For -Tuval[place] individuals, multiply the result by 1.210. Chronic Kidney Disease: Estimated GFR < 60 mL/min/1.73m2 Severe Kidney Disease: Estimated GFR < 15 mL/min/1.73m2 Glucose Random 110 60-115 mg/dL Calcium 9.6 8.4-10.2 mg/dL MRSA Nasal Screen Reviewed date:01/24/2023 01:24:49 PM Interpretation:Negative Performing Lab:[facility], [address] [place] [phone] Notes/Report: MRSA Nasal PCR NEGATIVE Negative SA Nasal PCR NEGATIVE Negative MRSA Interpretation SEE NOTE MRSA target DNA not detected; SA target DNA not detected. A MRSA NEGATIVE, SA NEGATIVE test result does not preclude MRSA or SA nasal colonization. Type and Screen Reviewed date:01/23/2023 09:24:13 PM Interpretation:O Positive Performing Lab:[facility], [address] [place] [phone] Notes/Report: Spec expiration changed by TEDDY on 01/23/23 Reason: For SURGERY NURSING: Call Blood Bank (ext. [phone]) to band patient on admission. Type and Screen in effect until 2300 on 01/31/2023 Witnessed by PARESH Blood Type OP Antibody Screen NEGATIVE REASON FOR REFERRAL No Information MEDICATIONS Medication SIG (Take, Route, Frequency, Duration) Notes Start Date End Date Status Atorvastatin Calcium 80 MG 1 tablet Orally Once a day Active Diclofenac Sodium 75 MG 1 tablet as need ed Orally Twice a day Active Primidone 50 MG 2 tablets Orally Onc e a day Active Methenamine Hippurate 1 GM 1 tablet Oral ly Twice a day Active Omeprazole 40 MG 1 capsule 30 minutes before morning meal Orally Once a day Active Levothyroxine Sodium 125 MCG 1 tablet in the morning on an empty stomach Orally Once a day Active Testosterone Enanthate 200 MG/ML 1 mL Intramuscular Once every 2 weeks Active Tamsulosin HCl 0.4 MG 1 capsule Orally T wice a day Active ALPRAZolam 1 MG 1 tablet Orally Twic e a day Active Escitalopram Oxalate 20 MG 1 tablet Orally Once a day Active Adderall 20 MG 1 tablet Orally Twic e a day Active Propranolol HCl ER 120 MG 1 capsule Oral ly Once every other day Active Multivitamins 1 capsule Orally Onc e a day Active amLODIPine Besylate 5 MG 1 tablet Orally Once a day Active Vitamin D 1000 UNIT 1 capsule Orally Onc e a day 10/20/2014 Active IMMUNIZATIONS Vaccine Route Administration Date Status Comme nts Influenza Quad IM Intramuscular 01/02/2015 Administered PCV 13 IM Intramuscular 01/02/2015 Administered Influenza Quad IM Intramuscular 12/21/2015 Administered Pneumococcal - PPSV23 IM Intramuscular 02/18/2016 Administ ered Influenza High Dose IM Intramuscular 03/10/2017 Administer ed Influenza High Dose IM Intramuscular 03/15/2018 Administer ed Influenza High Dose IM Intramuscular 05/01/2019 Administer ed COVID-19 Pfizer BioNTech Unknown 01/04/2021 Administere d Flu-aIIV4 Unknown 12/28/2019 Administered COVID-19 Pfizer BioNTech Unknown 05/13/2020 Administere d COVID-19 Pfizer BioNTech Unknown 06/03/2020 Administere d Flu-aIIV4 Unknown 03/04/2021 Administered Influenza High Dose IM Intramuscular 11/23/2021 Administer ed Influenza Quad IM Intramuscular 12/14/2022 Administered SOCIAL HISTORY Tobacco Use: Social History Observation Description Date Details (start date - stop date) Never Smoker NA - NA Sex Assigned At : Social History Observation Description Sex Assigned At Male Tobacco Use/Smoking Question Answer Notes Patient is a nonsmoker Additional Findings: Tobacco Non-User Cu rrent non-smoker, currently using no form of tobacco Alcohol Screen Question Answer Notes Did you have a drink contain ing alcohol in the past year? Yes How often did you have a dri nk containing alcohol in the past year? 2 to 3 times a week (3 points) How many drinks did you have on a typical day when you were drinking in the past year? 1 or 2 drinks (0 point) How often did you have 6 or more drinks on one occasion in the past year? Never (0 point) Points 3 Interpretation Negative PROBLEMS Problem Type ICD Code Onset Dates Problem Status W/U Status Risk SNOMED Code Notes Problem Overweight (E66.3) Active confirmed 238 [id number] Problem Generalized anxiety disorder (F41.1) Active confirmed 17538725 Problem Attention deficit disorder (F90.0) Active confirmed 854041602 Problem Acquired hypothyroidism (E03.9) Active confirmed 818833154 Problem Primary osteoarthrit is of left hip (M16.12) Active confirmed 832862328470154 Problem Tremor (R25.1) Active confirmed 9876560 4 Problem Benign prostatic hyperplasia with lower urinary tract symptoms (N40.1) Active confirmed 085104938357912 Problem Hypercholesterolemia (E78.00) Active confirmed 79408268 Problem Conductive hearing loss in right ear (H90.11) Active confirmed 5076975471640 Problem LUQ abdominal pain (R10.12) Active confirmed 916841925 Problem Spinal stenosis of lumbar region with neurogenic claudication (M48.062) Active confirmed 34516550 Encounters Encounter Location Date Provider Diagnosis Mike Jolley DO, [address] [id number] 02/16/2022 Mike Jolley Spinal stenosis of l umbar region, unspecified whether neurogenic claudication present M48.061 ; Generalized anxiety disorder F41.1 ; Attention deficit disorder F90.0 ; Hypercholesterolemia E78.00 ; Acquired hypothyroidism E03.9 ; Benign prostatic hyperplasia with lower urinary tract symptoms N40.1 and Tremor R25.1 Mike Jolley DO, [address] [id number] 03/16/2022 Mike Jolley Generalized anxiety disorder F41.1 ; Spinal stenosis of lumbar region with neurogenic claudication M48.062 ; Attention deficit disorder F90.0 ; Hypercholesterolemia E78.00 ; Acquired hypothyroidism E03.9 ; Benign prostatic hyperplasia with lower urinary tract symptoms N40.1 and Tremor R25.1 Mike oJlley DO, [address] [id number] 06/15/2022 Mike Jolley Generalized anxiety disorder F41.1 ; Attention deficit disorder F90.0 ; Hypercholesterolemia E78.00 ; Acquired hypothyroidism E03.9 ; Tremor R25.1 ; Benign prostatic hyperplasia with lower urinary tract symptoms N40.1 and Spinal stenosis of lumbar region with neurogenic claudication M48.062 Mike Jolley DO, [address] [id number] 12/14/2022 Miek Jolley Left hip pain M25.55 2 ; Benign prostatic hyperplasia with lower urinary tract symptoms N40.1 ; Tremor R25.1 ; Generalized anxiety disorder F41.1 ; Attention deficit disorder F90.0 and Acquired hypothyroidism E03.9 Mike Jolley DO, [address], [place] [id number] 01/17/2023 Mike Cabreraman Primary osteoarthrit is of left hip M16.12 ; Generalized anxiety disorder F41.1 ; Attention deficit disorder F90.0 ; Hypercholesterolemia E78.00 ; Acquired hypothyroidism E03.9 ; Tremor R25.1 and Benign prostatic hyperplasia with lower urinary tract symptoms N40.1 Mike Jolley DO, [address] [id number] 06/15/2022 Mike Jolley Mike Ross Shola DO, [address] [id number] 10/04/2022 Mike Shola Mike Jolley DO, [address] [id number] 01/11/2023 Mike Jolley Generalized anxiety disorder F41.1 and Acquired hypothyroidism E03.9 Mike Cody Shola DO, [address] [id number] 01/16/2023 Mike Mckeon Cody Shola DO, [address] [id number] 12/09/2022 Mike Jolley ASSESSMENTS Encounter Date Diagnosis Assessment Notes Treatment Notes Treatment Clinical Notes 02/16/2022 Spinal stenosis of l umbar region, unspecified whether neurogenic claudication present (ICD-10 - M48.061) 02/16/2022 Generalized anxiety disorder (ICD-10 - F41.1) 03/16/2022 Generalized anxiety disorder (ICD-10 - F41.1) 03/16/2022 Spinal stenosis of l umbar region with neurogenic claudication (ICD-10 - M48.062) Joel is an acceptable candidate for the proposed surgical procedure and is medically cleared for surgey. He will hold his diclofenac for 1 week prior to surgery 06/15/2022 Generalized anxiety disorder (ICD-10 - F41.1) 06/15/2022 Attention deficit di sorder (ICD-10 - F90.0) 12/14/2022 Left hip pain (ICD-1 0 - M25.552) 01/17/2023 Generalized anxiety disorder (ICD-10 - F41.1) 01/17/2023 Primary osteoarthrit is of left hip (ICD-10 - M16.12) Joel is an acceptable candidate for the proposed surgical procedure and is medically cleared for surgery. He is to hold the diclofenac for 1 week prior to surgery 01/11/2023 Generalized anxiety disorder (ICD-10 - F41.1) 01/11/2023 Acquired hypothyroid ism (ICD-10 - E03.9) 02/16/2022 Attention deficit di sorder (ICD-10 - F90.0) 03/16/2022 Attention deficit di sorder (ICD-10 - F90.0) 06/15/2022 Hypercholesterolemia (ICD-10 - E78.00) 12/14/2022 Benign prostatic hyperplasia with lower urinary tract symptoms (ICD-10 - N40.1) 01/17/2023 Attention deficit di sorder (ICD-10 - F90.0) 02/16/2022 Hypercholesterolemia (ICD-10 - E78.00) 03/16/2022 Hypercholesterolemia (ICD-10 - E78.00) 06/15/2022 Acquired hypothyroid ism (ICD-10 - E03.9) 12/14/2022 Tremor (ICD-10 - R25.1) 01/17/2023 Hypercholesterolemia (ICD-10 - E78.00) 02/16/2022 Acquired hypothyroid ism (ICD-10 - E03.9) 03/16/2022 Acquired hypothyroid ism (ICD-10 - E03.9) 06/15/2022 Tremor (ICD-10 - R25.1) Foll ow up with Neurology 12/14/2022 Generalized anxiety disorder (ICD-10 - F41.1) 01/17/2023 Acquired hypothyroid ism (ICD-10 - E03.9) 02/16/2022 Benign prostatic hyperplasia with lower urinary tract symptoms (ICD-10 - N40.1) 03/16/2022 Benign prostatic hyperplasia with lower urinary tract symptoms (ICD-10 - N40.1) 06/15/2022 Benign prostatic hyperplasia with lower urinary tract symptoms (ICD-10 - N40.1) Follow up with Urology 12/14/2022 Attention deficit di sorder (ICD-10 - F90.0) 01/17/2023 Tremor (ICD-10 - R25.1) 02/16/2022 Tremor (ICD-10 - R25.1) 03/16/2022 Tremor (ICD-10 - R25.1) 06/15/2022 Spinal stenosis of l umbar region with neurogenic claudication (ICD-10 - M48.062) Doing well s/p lumbar disc surgery 12/14/2022 Acquired hypothyroid ism (ICD-10 - E03.9) 01/17/2023 Benign prostatic hyperplasia with lower urinary tract symptoms (ICD-10 - N40.1) PLAN OF TREATMENT Pending Test Test Name Order Date CBC w DIFF 01/11/2023 LIPOPROTEIN FRACTIONATION (LIPID PANEL) 06/15/2022 PROFILE, FASTING 06/15/2022 TSH (THYROID STIMULATING HORMONE) 2022 TSH (THYROID STIMULATING HORMONE) 2022 Next Appt Details Provider Name:Mike jackson, 07/19/2023 09:45:00 AM, [address] [place] [address], [place], [place], [phone], Insurance Providers Payer Name Payer Address Payer Phone Subscriber Number Group Number Insured Name Patient Relationship to Insured Coverage Start Date Coverage End Date MEDICARE [address] [place] [phone] [id number] Joel Stout Self - patient is the insured MEDEX [address] [place] [address] [id number] Joel Stout Self - patient is the insured MEDICAL (GENERAL) HISTORY Medical History History ICD Code anxiety disorder depression attention deficit disorder testicular cancer hypotestosteronism hypothyroidism spinal stenosis intestinal blockage benign prostatic hyperplasia (BPH) hypercholesterolemia dermatitis Breast mass, right BECKMAN (dyspnea on exertion) R06.00 Tremor R25.1 Surgical History Surgery Date(Month/Year) right knee arthroscopy left quadriceps tendon repair spinal stenosis surgery partial colon resection tonsillectomy orchiectomy, left Lasik surgery [facility] lumbar disc surgery 03/2022
--- OUTSIDE RECORDS SUMMARY | 2023-01-31 07:56 | XMS_ITS | Continuity of Care Document ---
Author Name Unknown Organization [facility] Address [address] [place] [address] asmita, [address] [place] [address]- Care Team Providers Care Senior [employer] Net Developer Name Role Phone Mike Jolley DO Primary Care Physician [phone] [place]counter [facility] Date(s): 03/28/22 - 04/27/22 [facility] [address] [place] [address] Drive, [address] [place], [place] [address] Allergies, Adverse Reactions, Alerts Substance [...] Refills, Maintenance, 04/02/22 14:22:00 EST, Capsule, [facility], Partial fill upon patient [...] 0, 0, 01/26/06 15:22:25, Print YOHAN Number, [id number], Constant Indicator Start Date: 01/26/06 Status: Ordered [...] 14:23:00 EST, Route to Pharmacy Electronically, [facility], Partial fill upon patient request if the prescription is for a schedule I... Start Date: 04/02/22 Stop Date: 05/02/22 Status: Ordered Patient Care team information Care Team Personnel Name: Rebeca Steele RN Position: S RN Member Role: Primary Care Nurse Name: Mike Jolley DO Position: Reference Physician Member Role: PCP Address: Address: [address] [place] [address] Mike Jolley MD [place], [place] [address] Name: Alayna Laguna Position: Jerry RN Member Role: Primary Care Nurse Care Team Related Persons Name: VALERIE BOJORQUEZ Name: CINTIA BOJORQUEZ Address: [address] [place] [address] Name: DIMPLE BOJORQUEZ Address: [address] [place] [address]
--- NOTE | 2023-01-31 08:15 | PHA.MEDREC ---
Pharmacy Consult ? Medication Reconciliation Pharmacy has completed the medication reconciliation.PHARMACY HAS REVIEWED THE MED REC DONE BY NURSING.
[2023-01-31] MEDS: Lactated Ringers 1,000 ML 100 ML IVCONT ×3 (08:16→23:27)
[2023-01-31] MEDS: oxyCODONE HCl ER 10 MG TAB.ER.12H PO ×2 (08:37→20:44)
--- NOTE | 2023-01-31 08:56 | PC.NURSE ---
dr. herbert stated okay to proceed into OR without potassium labs that are pending.
--- NOTE | 2023-01-31 09:09 | MHC.SHP ---
Pre-Procedural Eval Section A Date of Service: 01/31/23 The patient is an INPATIENT: No Changes since office visit: No Cold of Flu in the past 2 weeks, No New Medical Problems, No Changes in Medication and No Patient answered all questions The History & Physical has been completed within 30 days and I have reviewed it.: Yes Section B Chief Complaint: LT MICKEY Allergies: Allergies Allergy/AdvReac Type Severity Reaction Status Date / Time adhesive tape [ADHESIVE TAPE] Allergy Intermediate RASH Verified 01/31/23 07:56 cashew nut [CASHEW NUT] Allergy Intermediate SWELLING Verified 01/31/23 07:56 sulfamethoxazole Allergy Intermediate Rash Verified 01/31/23 07:56 [From Bactrim] trimethoprim [From Bactrim] Allergy Intermediate Rash Verified 01/31/23 07:56 PERM HAIR DYE Allergy Severe severe rash Uncoded 01/31/23 07:56 Plan I have reviewed the history and physical and performed a pertinent physical examination on my patient. No changes have occurred unless specified. Time Spent With Patient Time: Total time managing care of this patient today ____ minutes.
[2023-01-31 10:58] LABS: Potassium 4.1 mmol/L (3.3-5.1)
--- NOTE | 2023-01-31 11:08 | P.BOP_ITS ---
Brief Operative Note Date of Service: 01/31/23 Pre-op diagnosis: Left hip OA Post-op diagnosis: same Procedure: Left MICKEY Implants: [employer] [id number] with 2 6.5 screws and lipped liner [employer] [id number] #[id number] with +0 36 ceramic Surgeon: Ash Mckinley MD Anesthesia: GETA Was an Pulmonary Nurse Practitioner used for this Procedure?: Yes Pulmonary Nurse Practitioner: Robe Montoya Estimated blood loss (mL): 150 IV fluids (mL): 1,000 Pathology: other Condition: stable Disposition: PACU
[2023-01-31] MEDS: fentaNYL citrate/PF 100 MCG/2 ML VIAL 25 MCG IVPUSH ×3 (11:25→11:45)
[2023-01-31] MEDS: oxyCODONE HCl Immed Release 5 MG TABLET PO (11:37)
--- NOTE | 2023-01-31 14:53 | P.CONHOSP_ITS ---
History of Present Illness Data of Consult Service Date: 01/31/23 Requesting physician: Robe Montoya Primary Care Provider: DO YUNG Botello Reason for consult: medical management 77-year-old male with history of tardive dyskinesia, depression, polycythemia, hypothyroidism, hypertension, asthma, history of testicular cancer s/p orchiectomy, severe BPH admitted to Orthopedic surgery for management of osteoarthritis of the left hip s/p MICKEY. He is reporting manageable 3/10 pain. He has not yet urinated but does have an urgency and would like to use the commode. No shortness of breath, chest pain, lightheadedness, abdominal pain, nausea, vomiting. No apparent acute medical issues. Review of Systems 2 Review of Systems: Yes all other systems are reviewed and are negative COUNT INCLUDES [facility] Medical History ADD (attention deficit disorder) Enlarged prostate Hyperkalemia Tardive dyskinesia Hard of hearing Hypothyroid Depression Polycythemia Osteoarthritis HTN (hypertension) Asthma Testicular cancer Family History Father Clogged artery (heart) Mother Cardiac disease Surgical History Hx of unilateral orchiectomy Hx of excision of mass H/O colonoscopy History of cholecystectomy History of back surgery History of right knee surgery History of left knee surgery History of intestinal surgery Social History Household Members: Spouse Housing: House Are you a primary child care centre manager to a significant other at home: No Do you presently have visiting nurse or other home services: No Alcohol intake: current Alcohol intake frequency: a few times a week Alcohol type: beer Patient Tobacco Use Status: Never used Tobacco Use of substances other than those prescribed or required for medical reasons: Yes Substance Use Type: Marijuana Substance Use Type Other:: edible-1/4 of a small brownie at bedtime Substance Use Frequency: Daily Last Used Substance: Weeks (ago) Have you been hit, kicked, punched, or otherwise hurt by someone within the past year? If so, by whom?: No Do you feel safe in your current relationship?: Yes Is there a partner from a previous relationship who is making you feel unsafe now?: No Are you made to feel afraid or neglected: No Are you DNR?: No Advance Directives: No (sons are primary contact) Advance Directives Information Provided: Yes (brochure given) Advance Directives on File: No Do you have thoughts of harming others: None Do you have a plan to hurt others: No Plan Recently lost weight without trying: No Eating poorly because of decreased appetite: No Nutrition Risks: No Nutritional Risk Poor oral hygiene: No (3 broken caps) Meds Allergies Allergy/AdvReac Type Severity Reaction Status Date / Time adhesive tape [ADHESIVE TAPE] Allergy Intermediate RASH Verified 01/31/23 07:56 cashew nut [CASHEW NUT] Allergy Intermediate SWELLING Verified 01/31/23 07:56 sulfamethoxazole Allergy Intermediate Rash Verified 01/31/23 07:56 [From Bactrim] trimethoprim [From Bactrim] Allergy Intermediate Rash Verified 01/31/23 07:56 PERM HAIR DYE Allergy Severe severe rash Uncoded 01/31/23 07:56 Active Medications: Current Medications Acetaminophen (Acetaminophen 325 Mg Tablet) 650 mg PO Q6H PRN PRN Reason: Pain, Mild (Pain Scale 1-3) Alprazolam (Alprazolam 0.5 Mg Tablet) 1 mg PO BID [facility] Amlodipine Besylate (Amlodipine Besylate 5 Mg Tablet) 5 mg PO DAILY [facility]; Protocol Amphetamine/Dextroamphetamine (Amphetamine Mixed Salts 20 Mg Tablet) 20 mg PO BIDWM [facility] Aspirin (Aspirin 325 Mg Tablet) 325 mg PO BID [facility] Celecoxib (Celecoxib 200 Mg Capsule) 200 mg PO BID [facility] Docusate Sodium (Docusate Sodium 100 Mg Capsule) 100 mg PO BID [facility] Escitalopram Oxalate (Escitalopram Oxalate 20 Mg Tablet) 20 mg PO DAILY [facility] Hydromorphone HCl (Hydromorphone Hcl 0.5 Mg/0.5 Ml Syringe) 0.25 mg IVPUSH Q4H PRN; Protocol PRN Reason: Pain, Severe (Pain Scale 7-10) Hydromorphone HCl (Hydromorphone Hcl 2 Mg Tablet) 2 mg PO Q4H PRN PRN Reason: Pain, Moderate(Pain Scale 4-6) Lactated Ringer's (Lr) 1,000 mls @ 100 mls/hr IVCONT .Q10H [facility] Stop: 02/01/23 11:15 Cefazolin Sodium/Dextrose (Ancef) 2 gm in 50 mls @ 100 mls/hr IV POSTOP ONE Stop: 01/31/23 15:29 Levothyroxine Sodium (Levothyroxine Sodium 125 Mcg Tablet) 125 mcg PO DAILY@0600 [facility] Melatonin (Melatonin 3 Mg Tablet) 9 mg PO BEDTIME [facility] Methenamine Hippurate (Methenamine Hippurate 1 Gm Tablet) 1 gm PO BID [facility] Non-Formulary Medication (Testosterone Cypionate) 200 mg IM Q14D [facility] Omeprazole (Omeprazole 40 Mg Capsule.Dr) 40 mg PO DAILY@0630 [facility] Ondansetron HCl (Ondansetron Hcl 4 Mg/2 Ml Vial) 4 mg IVPUSH Q8H PRN PRN Reason: Nausea and Vomiting Oxycodone HCl (Oxycodone Hcl Er 10 Mg Tab.Er.12h) 10 mg PO BID [facility] Primidone (Primidone 50 Mg Tablet) 50 mg PO BID [facility] Propranolol HCl (Propranolol Hcl La 60 Mg Cap.Sa.24h) 120 mg PO Q2D@0900 [facility]; Protocol Sodium Chloride (0.9 % Sodium Chloride Flush 3 Ml Syringe) 3 ml IVFLUSH QSHIFT [facility] Tamsulosin HCl (Tamsulosin Hcl 0.4 Mg Capsule) 0.4 mg PO BID [facility] Home Medications Medication Instructions Recorded Confirmed Last Taken Type atorvastatin 80 mg tablet 80 mg PO DAILY 03/05/20 01/26/23 Unknown History levothyroxine 125 mcg tablet 125 mcg PO DAILY 03/05/20 01/26/23 01/31/23 History omeprazole 40 mg capsule,delayed 40 mg PO DAILY 03/05/20 01/26/23 01/31/23 History release testosterone cypionate 200 mg/mL 200 mg IM Q2W 03/05/20 01/26/23 Unknown History intramuscular oil cholecalciferol (vitamin D3) 25 25 mcg PO DAILY 04/30/20 01/26/23 Unknown History mcg (1,000 unit) capsule primidone 50 mg tablet 50 mg PO BID 04/30/20 01/26/23 01/31/23 History tamsulosin 0.4 mg capsule 0.4 mg PO BID 04/30/20 01/26/23 01/31/23 History escitalopram oxalate 20 mg tablet 20 mg PO DAILY 04/05/21 01/26/23 01/31/23 History (Lexapro) alprazolam 1 mg tablet 1 mg PO BID 07/07/21 01/26/23 01/31/23 History dextroamphetamine-amphetamine 20 20 mg PO BID 07/07/21 01/26/23 Unknown History mg tablet (Adderall) propranolol 120 mg capsule,24 120 mg PO Q2D 07/07/21 01/26/23 01/31/23 History hr,extended release diclofenac sodium 75 mg 75 mg PO BID PRN Pain 08/18/22 01/23/23 Unknown History tablet,delayed release methenamine hippurate 1 gram tablet 1 g PO BID 08/18/22 01/26/23 01/31/23 History multivitamin 1 tab PO DAILY 08/18/22 01/26/23 Unknown History melatonin 10 mg tablet 10 mg PO BEDTIME 01/23/23 01/26/23 Unknown History Physical Exam 2 Vital Signs and Narrative: Vital Signs: Last Vital Signs Temp 97.6 F 01/31/23 13:58 Pulse 57 01/31/23 13:58 Resp 20 01/31/23 13:58 BP 122/58 L 01/31/23 13:58 Pulse Ox 99 01/31/23 13:58 O2 Del Method Room Air 01/31/23 13:58 O2 Flow Rate 2 01/31/23 13:20 BMI result Body Mass Index 26.2 Constitutional - Awake and Alert, No apparent distress Eyes - PERRLA, EOMI Cardiovascular - S1S2, RRR, No edema Respiratory - Normal lung expansion, Normal respiratory effort, No respiratory distress, CTA bilaterally Gastrointestinal - NT / ND; +BS; No rebound or guarding Extremities - no calf tenderness bilaterally, no swelling Skin - Warm/Dry Neurological - Alert & oriented x3 Psychological - Appropriate affect Results Labs 01/31/23 08:43 Assessment and Plan (1) Osteoarthritis of left hip: Qualifiers: Osteoarthritis type: primary Qualified Code(s): M16.12 - Unilateral primary osteoarthritis, left hip Status: Acute Plan 77-year-old male with history of tardive dyskinesia, depression, polycythemia, hypothyroidism, hypertension, asthma, history of testicular cancer s/p orchiectomy, severe BPH admitted to Orthopedic surgery for management of osteoarthritis of the left hip s/p MICKEY. #Left hip OA s/p Left MICKEY pod 0 -plan per ortho surgery # hypothyroidism -continue levothyroxine # exercise-induced asthma -no acute exacerbation, albuterol p.r.n. # hypertension -blood pressure reasonably controlled -resume amlodipine a.m. # hyperlipidemia -continue statin # mood disorder/ADD -continue home meds # H/O testicular cancer s/p orchiectomy -continue testosterone # BPH with LUTS -continue Flomax -urology consult ordered by Orthopedic surgery Thank you for allowing me to participate in this consult. Signing off at this time. Please do not hesitate to call for further questions or for any acute medical issues.
[2023-01-31] MEDS: ceFAZolin Sodium/Dextrose,Iso 2 GM/50 ML PIGGYBACK IV (15:10)
[2023-01-31] MEDS: 0.9 % Sodium Chloride Flush 3 ML SYRINGE IVFLUSH (15:21)
[2023-01-31] MEDS: Methenamine Hippurate 1 GM TABLET PO (20:43)
[2023-01-31] MEDS: Tamsulosin HCL 0.4 MG CAPSULE PO (20:43)
[2023-01-31] MEDS: ALPRAZolam 0.5 MG TABLET 1 MG PO (20:43)
[2023-01-31] MEDS: Primidone 50 MG TABLET PO (20:43)
[2023-01-31] MEDS: Atorvastatin Calcium 80 MG TABLET PO (23:23)
[2023-02-01] MEDS: HYDROmorphone HCl 0.5 MG/0.5 ML SYRINGE 0.25 MG IVPUSH ×3 (00:54→15:49)
[2023-02-01] MEDS: 0.9 % Sodium Chloride Flush 3 ML SYRINGE IVFLUSH ×4 (01:04→23:36)
[2023-02-01 03:27] VITALS: BP 127/78; PULSE 72; RESP 18; TEMP 36.7; O2SAT 98
[2023-02-01] MEDS: HYDROmorphone HCl 1 MG/ML SYRINGE IVPUSH (04:51)
[2023-02-01] MEDS: Acetaminophen 325 MG TABLET 650 MG PO (05:05)
[2023-02-01] MEDS: Levothyroxine Sodium 125 MCG TABLET PO (05:05)
[2023-02-01] MEDS: Omeprazole 40 MG CAPSULE.DR PO (05:05)
[2023-02-01] MEDS: HYDROmorphone HCl 2 MG TABLET PO ×3 (05:06→16:29)
[2023-02-01] MEDS: Tamsulosin HCL 0.4 MG CAPSULE PO ×2 (05:21→20:49)
[2023-02-01] MEDS: LORazepam 1 MG TABLET PO (05:21)
--- NOTE | 2023-02-01 05:39 | PC.NURSE ---
0430 pt crying states pain has increased, states that previous dose of dilaudid 0.25 mg IV was ineffective, message sent to md. one time dose of dilaudid 1 mg IV ordered, when spoke with pt regarding new orders he became agitated, yelling. md at bedside to speak with pt. Dilaudid 1 mg IV given in addition to dilaudid 2mg po . pt states during prior surgeries pain management has been an issue. pt ambulated to bathroom at 0430 and declines to leave till he feels better. RN remained in room for safety measures. Pt returned to bed at 0615 call feliz within reach.
[2023-02-01 07:09] VITALS: BP 117/51; PULSE 81; RESP 20; TEMP 36.7; O2SAT 94
[2023-02-01 07:47] LABS: Hematocrit 37.8 % (42.0-52.0); Hemoglobin 12.4 g/dl (14.0-18.0)
[2023-02-01 08:03] LABS: Anion Gap 13 (12-20); Blood Urea Nitrogen 15 mg/dL (9-16); Calcium 8.5 mg/dL (8.4-10.2); Carbon Dioxide 26 mmol/L (22-29); Chloride 99 mmol/L (96-108); Creatinine Clr Calc Pharmacy 69.8; Estimated Glomerular Filt Rate > 60; Glucose Fasting 113 mg/dL (60-99); Potassium 3.7 mmol/L (3.3-5.1); Sodium 134 mmol/L (135-145)
[2023-02-01] MEDS: Amphetamine Mixed Salts 20 MG TABLET PO (08:21)
[2023-02-01] MEDS: Docusate Sodium 100 MG CAPSULE PO ×2 (08:21→20:47)
[2023-02-01] MEDS: Methenamine Hippurate 1 GM TABLET PO ×2 (08:22→20:47)
[2023-02-01] MEDS: Multivitamin TABLET 1 TAB PO (08:23)
[2023-02-01] MEDS: Cholecalciferol (Vitamin D3) 25 MCG TABLET PO (08:23)
[2023-02-01] MEDS: amLODIPine Besylate 5 MG TABLET PO (08:23)
[2023-02-01] MEDS: oxyCODONE HCl ER 10 MG TAB.ER.12H PO ×2 (08:23→20:51)
[2023-02-01] MEDS: Escitalopram Oxalate 20 MG TABLET PO (08:24)
[2023-02-01] MEDS: ALPRAZolam 0.5 MG TABLET 1 MG PO ×2 (08:24→20:45)
--- NOTE | 2023-02-01 09:16 | PM.PNORT ---
Subjective Subjective Date of Service: 02/01/23 Interval history: POD1 s/p LTHA Patient is resting in bed comfortably No overnight events Pain is managed No additional complaints Physical Exam Vital Signs: Vital Signs: Last Vital Signs Temp 98.1 F 02/01/23 07:09 Pulse 81 02/01/23 07:09 Resp 20 02/01/23 07:09 BP 117/51 L 02/01/23 07:09 Pulse Ox 94 02/01/23 07:09 O2 Del Method Room Air 02/01/23 07:09 O2 Flow Rate 2 01/31/23 13:20 BMI result Body Mass Index 26.2 Const: General: cooperative, healthy appearing and no acute distress Resp: Effort & Inspection: normal respiratory effort and able to speak in complete sentences Cardio: Rate: regular rate Peripheral pulses: Peripheral pulses 2+ throughout GI: Palpation (GI): Soft to palpation Skin: Lesions: no lesions Rashes: no rashes Extrem: Other: Left hip dressing is c/d/i. Able to dorsi/plantar flex. Calf is supple and nontender. Sensation intact. Pedal pulse intact. Procedures Date of Service Date of Service: 02/01/23 Progress Note: A&P Assessment and plan (1) Osteoarthritis of left hip: Status: Acute Assessment and Plan: Continue pain mgmnt Begin ASA for dvt ppx begin PT for LTHA - Posterior precautions Dispo planning-Pending PT eval, pain mgmnt Continued hospitalization is needed for pain management and physical therapy for safe discharge home Time Spent With Patient Time: Total time managing care of this patient today ____ minutes. Quality Stroke Does the patient have a stroke diagnosis?: No VTE Prior VTE?: No VTE Risk Level:: Medical - moderate - high VTE Device Contraindication: N/A - Device Ordered VTE Drug Contraindication: N/A - Med Ordered
--- NOTE | 2023-02-01 10:55 | P.CNUR_ITS ---
History of Present Illness Consult details Consult date: 02/01/23 Requesting physician: Ash Mckinley Narrative: 77-year-old male admitted to Orthopedic surgery for management of osteoarthritis of the left hip s/p MICKEY. PMH tardive dyskinesia, depression, polycythemia, hypothyroidism, hypertension, asthma, history of testicular cancer s/p orchiectomy, followed by Dr. Mccoy, [facility] for BPH and recurrent UTI's He is prescribed tamsulosin 0.4 mg bid and Hiprex. The patient states he was advised on having a procedure for BPH which he has declined. He has had difficulty with urination post procedure. Discussed proscar 5 mg in addition to the tamsulosin. Monitor Bladder scan PVR's. Pt instructed to follow up with Dr. Mccoy, he states he has an appointment scheduled for 02/08/23. Review of Systems 2 Review of Systems: 10 point ROS negative other than stated in HPI PMFSH Past Medical History Medical History ADD (attention deficit disorder) Enlarged prostate Hyperkalemia Tardive dyskinesia Hard of hearing Hypothyroid Depression Polycythemia Osteoarthritis HTN (hypertension) Asthma Testicular cancer Family History Family History Father Clogged artery (heart) Mother Cardiac disease Surgical History Surgical History Hx of unilateral orchiectomy Hx of excision of mass H/O colonoscopy History of cholecystectomy History of back surgery History of right knee surgery History of left knee surgery History of intestinal surgery Social History Social History Household Members: Spouse Housing: House Are you a primary home care assistant to a significant other at home: No Do you presently have visiting nurse or other home services: No Alcohol intake: current Alcohol intake frequency: a few times a week Alcohol type: beer Patient Tobacco Use Status: Never used Tobacco Use of substances other than those prescribed or required for medical reasons: Yes Substance Use Type: Marijuana Substance Use Type Other:: edible-1/4 of a small brownie at bedtime Substance Use Frequency: Daily Last Used Substance: Weeks (ago) Currently Displaying Signs/Symptoms of Drug Intoxication Withdrawal: No Have you been hit, kicked, punched, or otherwise hurt by someone within the past year? If so, by whom?: No Do you feel safe in your current relationship?: Yes Is there a partner from a previous relationship who is making you feel unsafe now?: No Are you made to feel afraid or neglected: No Are you DNR?: No Advance Directives: No (sons are primary contact) Advance Directives Information Provided: Yes (brochure given) Advance Directives on File: No Do you have thoughts of harming others: None Do you have a plan to hurt others: No Plan Recently lost weight without trying: No Eating poorly because of decreased appetite: No Nutrition Risks: No Nutritional Risk Poor oral hygiene: No (3 broken caps) Meds Allergies Allergy/AdvReac Type Severity Reaction Status Date / Time adhesive tape [ADHESIVE TAPE] Allergy Intermediate RASH Verified 01/31/23 07:56 cashew nut [CASHEW NUT] Allergy Intermediate SWELLING Verified 01/31/23 07:56 sulfamethoxazole Allergy Intermediate Rash Verified 01/31/23 07:56 [From Bactrim] trimethoprim [From Bactrim] Allergy Intermediate Rash Verified 01/31/23 07:56 PERM HAIR DYE Allergy Severe severe rash Uncoded 01/31/23 07:56 Active Medications: Current Medications Acetaminophen (Acetaminophen 325 Mg Tablet) 650 mg PO Q6H PRN PRN Reason: Pain, Mild (Pain Scale 1-3) Last Admin: 02/01/23 05:05 Dose: 650 mg Alprazolam (Alprazolam 0.5 Mg Tablet) 1 mg PO BID [facility] Last Admin: 02/01/23 08:24 Dose: 1 mg Amlodipine Besylate (Amlodipine Besylate 5 Mg Tablet) 5 mg PO DAILY [facility]; Protocol Last Admin: 02/01/23 08:23 Dose: 5 mg Amphetamine/Dextroamphetamine (Amphetamine Mixed Salts 20 Mg Tablet) 20 mg PO BIDWM [facility] Last Admin: 02/01/23 08:21 Dose: 20 mg Aspirin (Aspirin 325 Mg Tablet) 325 mg PO BID [facility] Last Admin: 02/01/23 08:29 Dose: Not Given Atorvastatin Calcium (Atorvastatin Calcium 80 Mg Tablet) 80 mg PO BEDTIME [facility] Last Admin: 01/31/23 23:23 Dose: 80 mg Celecoxib (Celecoxib 200 Mg Capsule) 200 mg PO BID [facility] Last Admin: 02/01/23 08:25 Dose: Not Given Docusate Sodium (Docusate Sodium 100 Mg Capsule) 100 mg PO BID [facility] Last Admin: 02/01/23 08:21 Dose: 100 mg Escitalopram Oxalate (Escitalopram Oxalate 20 Mg Tablet) 20 mg PO DAILY [facility] Last Admin: 02/01/23 08:24 Dose: 20 mg Hydromorphone HCl (Hydromorphone Hcl 0.5 Mg/0.5 Ml Syringe) 0.25 mg IVPUSH Q4H PRN; Protocol PRN Reason: Pain, Severe (Pain Scale 7-10) Last Admin: 02/01/23 00:54 Dose: 0.25 mg Hydromorphone HCl (Hydromorphone Hcl 2 Mg Tablet) 2 mg PO Q4H PRN PRN Reason: Pain, Moderate(Pain Scale 4-6) Last Admin: 02/01/23 05:06 Dose: 2 mg Lactated Ringer's (Lr) 1,000 mls @ 100 mls/hr IVCONT .Q10H [facility] Stop: 02/01/23 11:15 Last Admin: 01/31/23 23:27 Dose: 100 mls/hr Levothyroxine Sodium (Levothyroxine Sodium 125 Mcg Tablet) 125 mcg PO DAILY@0600 [facility] Last Admin: 02/01/23 05:05 Dose: 125 mcg Melatonin (Melatonin 3 Mg Tablet) 9 mg PO BEDTIME [facility] Last Admin: 01/31/23 23:28 Dose: Not Given Methenamine Hippurate (Methenamine Hippurate 1 Gm Tablet) 1 gm PO BID [facility] Last Admin: 02/01/23 08:22 Dose: 1 gm Multivitamins/Vitamin C (Multivitamin Tablet) 1 tab PO DAILY [facility] Last Admin: 02/01/23 08:23 Dose: 1 tab Omeprazole (Omeprazole 40 Mg Capsule.Dr) 40 mg PO DAILY@0630 [facility] Last Admin: 02/01/23 05:05 Dose: 40 mg Ondansetron HCl (Ondansetron Hcl 4 Mg/2 Ml Vial) 4 mg IVPUSH Q8H PRN PRN Reason: Nausea and Vomiting Oxycodone HCl (Oxycodone Hcl Er 10 Mg Tab.Er.12h) 10 mg PO BID [facility] Last Admin: 02/01/23 08:23 Dose: 10 mg Primidone (Primidone 50 Mg Tablet) 50 mg PO BID [facility] Last Admin: 02/01/23 08:28 Dose: Not Given Propranolol HCl (Propranolol Hcl La 60 Mg Cap.Sa.24h) 120 mg PO Q2D@0900 [facility]; Protocol Sodium Chloride (0.9 % Sodium Chloride Flush 3 Ml Syringe) 3 ml IVFLUSH QSHIFT [facility] Last Admin: 02/01/23 08:26 Dose: 3 ml Tamsulosin HCl (Tamsulosin Hcl 0.4 Mg Capsule) 0.4 mg PO BID [facility] Testosterone Cypionate (Testosterone Cypionate 200 Mg/1 Ml Vial) 200 mg IM Q14D [facility] Vitamin D (Cholecalciferol (Vitamin D3) 25 Mcg Tablet) 25 mcg PO DAILY [facility] Last Admin: 02/01/23 08:23 Dose: 25 mcg Home Medications Medication Instructions Recorded Confirmed Last Taken Type atorvastatin 80 mg tablet 80 mg PO DAILY 03/05/20 01/26/23 Unknown History levothyroxine 125 mcg tablet 125 mcg PO DAILY 03/05/20 01/26/23 01/31/23 History omeprazole 40 mg capsule,delayed 40 mg PO DAILY 03/05/20 01/26/23 01/31/23 History release testosterone cypionate 200 mg/mL 200 mg IM Q2W 03/05/20 01/26/23 Unknown History intramuscular oil cholecalciferol (vitamin D3) 25 25 mcg PO DAILY 04/30/20 01/26/23 Unknown History mcg (1,000 unit) capsule primidone 50 mg tablet 50 mg PO BID 04/30/20 01/26/23 01/31/23 History tamsulosin 0.4 mg capsule 0.4 mg PO BID 04/30/20 01/26/23 01/31/23 History escitalopram oxalate 20 mg tablet 20 mg PO DAILY 04/05/21 01/26/23 01/31/23 History (Lexapro) alprazolam 1 mg tablet 1 mg PO BID 07/07/21 01/26/23 01/31/23 History dextroamphetamine-amphetamine 20 20 mg PO BID 07/07/21 01/26/23 Unknown History mg tablet (Adderall) propranolol 120 mg capsule,24 120 mg PO Q2D 07/07/21 01/26/23 01/31/23 History hr,extended release diclofenac sodium 75 mg 75 mg PO BID PRN Pain 08/18/22 01/23/23 Unknown History tablet,delayed release methenamine hippurate 1 gram tablet 1 g PO BID 08/18/22 01/26/23 01/31/23 History multivitamin 1 tab PO DAILY 08/18/22 01/26/23 Unknown History melatonin 10 mg tablet 10 mg PO BEDTIME 01/23/23 01/26/23 Unknown History Physical Exam 2 Vital Signs: Vital Signs: Last Vital Signs Temp 98.1 F 02/01/23 07:09 Pulse 81 02/01/23 07:09 Resp 20 02/01/23 07:09 BP 117/51 L 02/01/23 07:09 Pulse Ox 94 02/01/23 07:09 O2 Del Method Room Air 02/01/23 07:09 O2 Flow Rate 2 01/31/23 13:20 BMI result Body Mass Index 26.2 Const: General: healthy appearing, no acute distress and well developed O rientation/consciousness: patient oriented x3 HEENT: Head: Yes normocephalic and Yes atraumatic Eyes: Conjunctivae: conjunctivae normal Neck: Neck: Yes normal visual inspection Chest: Chest palpation & inspection: normal inspection of the chest Resp: Effort & Inspection: normal respiratory effort Cardio: Rate: regular rate GI: Inspection: Yes normal to inspection Skin: General skin exam: no rashes or lesions noted Neuro: General: patient oriented x3 Extrem: General: No pedal edema Psych: Appearance: grossly normal Affect: normal affect Results Labs 02/01/23 06:35 02/01/23 06:35 Labs: Abnormal lab results 02/01/23 Range/Units 06:35 Hgb 12.4 L D (14.0-18.0) g/dl Hct 37.8 L D (42.0-52.0) % Sodium 134 L (135-145) mmol/L Fasting Glucose 113 H (60-99) mg/dL Short CBC 02/01/23 Range/Units 06:35 Hgb 12.4 L D (14.0-18.0) g/dl Hct 37.8 L D (42.0-52.0) % BMP 01/31/23 02/01/23 08:43 06:35 Sodium 134 L Potassium 4.1 3.7 Chloride 99 Carbon Dioxide 26 BUN 15 Creatinine 0.87 Calcium 8.5 D All other labs normal. Assessment and Plan (1) BPH loc w urin obs/LUTS: Status: Acute (2) Incomplete bladder emptying: Status: Acute (3) History of recurrent UTIs: Status: Acute Plan Monitor Bladder scan PVR proscar 5 mg daily Pt to FU with his Urologist, Dr. Mccoy Procedures Date of Service Date of Service: 02/01/23
--- NOTE | 2023-02-01 11:34 | W.PM.OPN ---
Operative Note Operative Note Date of Service: 01/31/23 Narrative: Date of Service: 01/31/23 Pre-op diagnosis: Left hip OA Post-op diagnosis: same Procedure: Left MICKEY Implants: [employer] Trident2 56 with 2 6.5 screws and lipped liner Genesee Accolade2 #5 127 with +0 36 ceramic Surgeon: Ash Mckinley MD Anesthesia: GETA Was an [employer] Project Manager used for this Procedure?: Yes [employer] Project Manager: Robe Montoya Estimated blood loss (mL): 150 IV fluids (mL): 1,000 Pathology: other Condition: stable Disposition: PACU Procedure in detail: Patient was brought into the operating room and placed in the right lateral decubitus position. All bony prominences were well padded and the limb was prepped and draped in standard sterile fashion. A time-out was called to identify proper site procedure proper surgeon IV antibiotics and 1 g of transaxemic acid were administered. I began by making a curvilinear incision over the posterolateral aspect of the greater trochanter. Dissection was taken down to the tensor fascia which was incised in line with the incision and a Charnley retractor was placed. Cautery was used to maintain hemostasis. The hip was internally rotated and the external rotators were identified. The vessels were cauterized and a full-thickness capsular/external rotator layer was developed starting just proximal to the piriformis. This layer was tagged and a dull Hohmann retractor was placed underneath the neck in the hip was dislocated. A neck cut was made 1 cm proximal to the lesser trochanter and the head and neck were removed and measured 50mm on the back table. I then removed the labrum and cauterized the fovea. I started with a 44 reamer and medialized to the inner table. I sequentially reamed up to a size 56 and impacted a 56mm cup at 45 degrees of inclination and 25 degrees of version. He had a shallow cup and so I added two 6.5 acetabular screws superoposteriorly using standard AO technique. I then placed a 20 deg posterior lipped liner and turned my attention to the femur. I identified the piriformis insertion and used this as a starting point for my leann cutter. The medius tendon was protected with a Hibs retractor. A Charnley awl was inserted in the canal and a curved curette used to remove the lateral bone. I irrigated copiously. I then sequentially broached in the patient's natural version to a size 5 and placed my trial implants. I used a #5/127/+0 based on my pre-operative template. Using a trail head I took the hip through range of motion. I was satisfied with the stability. I removed all instrumentation and copiously irrigated. I placed my final femoral implant and again took the hip through range of motion and was satisfied with the stability and length. The final 2.5 implant was impacted in place and the hip reduced. I then irrigated for 3 minutes with iodine and placed 1 g of local transaxemic acid. I performed a capsular closure with 2.0 fiberwire, Marcio's fascia with 0 Vicryl, subcuticular with 2-0 Vicryl and the skin with sybil. Patient was placed into a sterile dressing. Patient was extubated brought to the recovery room in stable condition. There were no known complications.
--- NOTE | 2023-02-01 12:35 | MHC.CM.PN ---
IMM 02/01. Pt lives at home with his fiance, uses a cane, walker. Pt states he has a HCP, copy requested. PT rec home with services. This CM met with pt to discuss, and he is agreeable to [facility] referral for SN/OT/PT. Pts fiance will transport him home. PCP: Dr. Mike Jolley
--- NOTE | 2023-02-01 15:18 | HO.POSTANES ---
Post Anesthesia Evaluation Post Anesthesia Evaluation Date of Service: 02/01/23 Vital Signs: Vital Signs Temp Pulse Resp BP Pulse Ox O2 Del Method 02/01/23 07:09 98.1 F 81 20 117/51 L 94 Room Air 02/01/23 03:27 98.0 F 72 18 127/78 98 Room Air Anesthesia: General Mental Status: Awake Pain Control: Satisfactory Nausea/Vomiting: None Hydration: Adequate Anesthesia-Related Issues: No Anes. Related Issues
[2023-02-01 15:28] VITALS: BP 135/63; PULSE 94; RESP 20; TEMP 36.9; O2SAT 95
--- NOTE | 2023-02-01 16:41 | PC.NURSE ---
this afternoon pt upset that his pain to the left hip is not controlled , pt is crying , Ortho team notified , pain medication adjusted and pt verbalized understanding
[2023-02-01] MEDS: Acetaminophen 1,000 MG/100 ML PIGGYBACK 400 MG IV ×2 (16:48→22:53)
[2023-02-01 19:34] VITALS: BP 127/59; PULSE 78; RESP 17; TEMP 36.9; O2SAT 97
[2023-02-01] MEDS: HYDROmorphone HCl 0.5 MG/0.5 ML SYRINGE IVPUSH ×2 (20:45→23:28)
[2023-02-01] MEDS: Atorvastatin Calcium 80 MG TABLET PO (20:47)
[2023-02-01] MEDS: Primidone 50 MG TABLET PO (20:49)
[2023-02-01] MEDS: Aspirin 325 MG TABLET PO (21:36)
[2023-02-02 03:08] VITALS: BP 125/58; PULSE 81; RESP 18; TEMP 37.2; O2SAT 95
[2023-02-02] MEDS: Acetaminophen 1,000 MG/100 ML PIGGYBACK 400 MG IV (05:43)
[2023-02-02] MEDS: HYDROmorphone HCl 0.5 MG/0.5 ML SYRINGE IVPUSH (05:46)
[2023-02-02] MEDS: Omeprazole 40 MG CAPSULE.DR PO (05:52)
[2023-02-02] MEDS: Levothyroxine Sodium 125 MCG TABLET PO (05:53)
[2023-02-02 06:38] LABS: Hematocrit 33.5 % (42.0-52.0); Hemoglobin 11.4 g/dl (14.0-18.0)
[2023-02-02 06:53] LABS: Anion Gap 13 (12-20); Blood Urea Nitrogen 13 mg/dL (9-16); Calcium 8.6 mg/dL (8.4-10.2); Carbon Dioxide 27 mmol/L (22-29); Chloride 98 mmol/L (96-108); Creatinine Clr Calc Pharmacy 69.8; Estimated Glomerular Filt Rate > 60; Glucose Fasting 127 mg/dL (60-99); Potassium 3.7 mmol/L (3.3-5.1); Sodium 134 mmol/L (135-145)
[2023-02-02 07:40] VITALS: BP 127/64; PULSE 82; RESP 18; TEMP 36.4; O2SAT 96
--- NOTE | 2023-02-02 08:25 | PM.DS ---
DS: Providers Provider Date of Service: 02/02/23 Date of admission: 01/31/23 07:46 Primary care physician: Mike Jolley DO Consults: 01/31/23 13:52 Consult to Hospitalist Routine Comment: Consulting Provider: Hospitalist Reason For Exam: wbat posterior precautions Consult to Urology Routine Consulting Provider: [facility] Urology Services Reason for consultation: severe BPH DS: Diagnosis Discharge Diagnosis (1) BPH loc w urin obs/LUTS: Status: Acute (2) Incomplete bladder emptying: Status: Acute (3) History of recurrent UTIs: Status: Acute DS: Summary Hospital Course Hospital Course: The patient underwent a successful Left total hip arthroplasty, they were transferred to PACU and then to the floor to recover. During their stay, their vitals were stable, afebrile at 97.6. Labs were unremarkable, H/H 11.4. POD 1 they were started on Aspirin 325mg po bid for DVT ppx, they also received Physical Therapy services twice a day. Prior to discharge, their dressing was intact, clean and dry., HUBER dressing applied post operatively in the OR is functioning appropriately with pressure and the plan was to be discharged home with VNA services. Time Attestation Discharge coordination time: Less than 30 minutes Quality: Safe Use of Opioids Does Pt have an Active Cancer Diagnosis on the Problem List?: No Quality: Stroke Does the patient have a stroke diagnosis?: No Physical Exam Vital Signs: Vital Signs: Last Vital Signs Temp 97.6 F 02/02/23 07:40 Pulse 82 02/02/23 07:40 Resp 18 02/02/23 07:40 BP 127/64 02/02/23 07:40 Pulse Ox 96 02/02/23 07:40 O2 Del Method Room Air 02/02/23 07:40 O2 Flow Rate 2 01/31/23 13:20 BMI result Body Mass Index 26.2 Const: General: cooperative, healthy appearing and no acute distress Resp: Effort & Inspection: normal respiratory effort and able to speak in complete sentences Cardio: Rate: regular rate Peripheral pulses: Peripheral pulses 2+ throughout GI: Palpation (GI): Soft to palpation Skin: Lesions: no lesions Rashes: no rashes Extrem: Other: Left hip HUBER dressing is c/d/i. Able to dorsi/plantar flex. Calf is supple and nontender. Sensation intact. Pedal pulse intact. DS: Data Data Completed and Pending Pending studies at discharge: Pending at discharge 01/31/23 09:42 Surgical [PTH] Routine Labs on day of discharge: Laboratory Results - last 24 hr 02/02/23 06:15 Hgb 11.4 L Hct 33.5 L Sodium 134 L Potassium 3.7 Chloride 98 Carbon Dioxide 27 Anion Gap 13 BUN 13 Creatinine 0.87 Estim Creat Clear Calc 69.8 Estimated GFR > 60 Fasting Glucose 127 H Calcium 8.6 Discharge Plan Discharge Anticipated Discharge Date/Time: 02/02/23 08:58 Patient Disposition: Home Health Service Discharge Diagnosis: s/p lt elvira Referrals: [facility] [Outside] - 1 Day ([facility] will call you to arrange home PT.) Robe Montoya PA-C [Physician Antisubmarine Weapons Officer] - 2 Weeks (02/16/23 1:30 [facility] Orthopedic Surgeons Robe Montoya PA-C) Discharge Medications: New docusate sodium 100 mg Capsule 100 mg PO BID 14 Days Qty: 28 0RF hydromorphone 2 mg tablet 2 mg PO Q4H PRN (Reason: Pain, Moderate(Pain Scale 4-6)) 7 Days Qty: 42 0RF Rx Instructions: Partial Fill upon patient request. celecoxib 200 mg Capsule 200 mg PO BID 30 Days Qty: 60 0RF aspirin 325 mg Tablet 325 mg PO BID 42 Days Qty: 84 0RF acetaminophen 325 mg Tablet 650 mg PO Q6H PRN (Reason: Pain, Mild (Pain Scale 1-3)) 30 Days Qty: 240 0RF Continued amlodipine 5 mg tablet 5 mg PO DAILY Qty: 90 3RF melatonin 10 mg Tablet 10 mg PO BEDTIME escitalopram oxalate [Lexapro] 20 mg tablet 20 mg PO DAILY cholecalciferol (vitamin D3) 25 mcg (1,000 unit) capsule 25 mcg PO DAILY levothyroxine 125 mcg tablet 125 mcg PO DAILY atorvastatin 80 mg tablet 80 mg PO DAILY omeprazole 40 mg capsule,delayed release(DR/EC) 40 mg PO DAILY testosterone cypionate 200 mg/mL oil 200 mg IM Q2W primidone 50 mg tablet 50 mg PO BID tamsulosin 0.4 mg capsule 0.4 mg PO BID alprazolam 1 mg tablet 1 mg PO BID dextroamphetamine-amphetamine [Adderall] 20 mg tablet 20 mg PO BID Rx Instructions: administer doses at least 4-6 hours apart propranolol 120 mg capsule,extended release 24 hr 120 mg PO Q2D methenamine hippurate 1 gram tablet 1 g PO BID diclofenac sodium 75 mg tablet,delayed release (DR/EC) 75 mg PO BID PRN (Reason: Pain) multivitamin Tablet 1 tab PO DAILY Discharge Orders: Discharge Order (Routine); Ordered 02/02/23 Ordered By: Robe Montoya Diet: Regular diet Activity on Discharge: Use cane or walker Stand Alone Forms: Patient Portal Discharge page Care Plan Goals: Restore function of joint Health Concerns: none Plan of Treatment: Physical Therapy for Total hip arthroplasty: wbat, posterior precautions, gait training, ROM, strength Limit stair climbing No showering, no tub bath-keep dressing clean, dry and intact No driving x6 weeks Continue Aspirin twice a day x 6 weeks Follow up with [facility] Orthopedics in 2 weeks: 02/16/23 13:30 [facility] Orthopedic SurgeonsRobe Montoya PA-C Assessment: As above
--- NOTE | 2023-02-02 08:26 | P.F2F_ITS ---
Service Date Service Date: 02/02/23 Encounter Date of encounter: 02/02/23 Reasons for Services Signs and symptoms assessed: s/p LTHA. Pt. is considered homebound due to recent surgery. Unable to drive, poor balance, poor gait mechanics. Reason for physical therapy: home safety and mobility, therapeutic exercises, restore joint function, gait/transfer training, assess need for DME and ADL training Reason for occupational therapy: home safety and mobility, therapeutic exercises, restore joint function, gait/transfer training, assess need for DME and ADL training Homebound: Leaving the home is medically contraindicated at this time without the asist of a device and/or another person due th the listed conditions above and below. Reason homebound: unsteady gait / fall risk, leg weakness, pain with ambulation, pain with transfers and poor balance / fall risk Certification: Based on the above findings, I certify that this patient is confined to the home and needs intermittent retirement care, physical therapy and/or speech therapy, or continues to need occupational therapy. The patient is under my care, and I have initiated the establishment of the plan of care. The patient will be followed by a physician who will periodically review the plan of care. Time Spent With Patient Time: Total time managing care of this patient today ____ minutes.
--- NOTE | 2023-02-02 09:11 | MHC.CM.PN ---
EMR REVIEWED. PT CLEARED BY ORTHO FOR DC HOME WITH SERVICES. [facility] IS ACCEPTED AND IS AWARE OF DC. PATIENTS PARTNER WILL PROVIDE TRANSPORTATION ~10:30AM. IMM WAS DELIVERED 02/01.
[2023-02-02] MEDS: 0.9 % Sodium Chloride Flush 3 ML SYRINGE IVFLUSH (09:44)
[2023-02-02] MEDS: Multivitamin TABLET 1 TAB PO (09:47)
[2023-02-02] MEDS: ALPRAZolam 0.5 MG TABLET 1 MG PO (09:48)
[2023-02-02] MEDS: Primidone 50 MG TABLET PO (09:48)
[2023-02-02] MEDS: Escitalopram Oxalate 20 MG TABLET PO (09:48)
[2023-02-02] MEDS: oxyCODONE HCl ER 10 MG TAB.ER.12H PO (09:48)
[2023-02-02] MEDS: Tamsulosin HCL 0.4 MG CAPSULE PO (09:49)
[2023-02-02] MEDS: Docusate Sodium 100 MG CAPSULE PO (09:49)
[2023-02-02] MEDS: Methenamine Hippurate 1 GM TABLET PO (09:49)
[2023-02-02] MEDS: Cholecalciferol (Vitamin D3) 25 MCG TABLET PO (09:49)
[2023-02-02] MEDS: Celecoxib 200 MG CAPSULE PO (09:50)
[2023-02-02] MEDS: Propranolol HCL LA 60 MG CAP.SA.24H 120 MG PO (09:50)
[2023-02-02] MEDS: amLODIPine Besylate 5 MG TABLET PO (09:50)
[2023-02-02] MEDS: Finasteride 5 MG TABLET PO (09:50)
[2023-02-02] MEDS: Aspirin 325 MG TABLET PO (10:23)
== END 2023-02-02 12:04 | disposition home health service (06) | DRG 470 ==
LOC: HO.SSSA 07:53 → HO.IMC 13:12 → HO.S3 02-01 18:18
PROVIDERS: Nurse Practitioner; Orthopaedic Surgery; Admitting Provider Physician Assistant; PCP Internal Medicine; Visit Provider Physician Assistant
PROC: 0SRB03A Replacement of Left Hip Joint with Ceramic Synthetic Substitute, Uncemented, Open Approach (ICD-10-PCS; CPT 27130; principal; 2023-01-31 09:40)
DX: M16.12 Unilateral primary osteoarthritis, left hip (principal); E03.9 Hypothyroidism, unspecified; F98.8 Other specified behavioral and emotional disorders with onset usually occurring in childhood and adolescence; E78.5 Hyperlipidemia, unspecified; R39.14 Feeling of incomplete bladder emptying; Z85.47 Personal history of malignant neoplasm of testis; N40.1 Benign prostatic hyperplasia with lower urinary tract symptoms; J45.990 Exercise induced bronchospasm; Z79.890 Hormone replacement therapy; Z79.899 Other long term (current) drug therapy
CPT/HCPCS: 36415; 72170; 80048; 84132; 85014; 85018; 86850; 86900; 86901; 87640; 87641; 88304; 88311; 97110; 97116; 97162; 97166; 97530; 99024; C1713; C1776; J0131; J0690; J1100; J1170; J1885; J2371; J2405; J2704; J2795; J3010; J7120

== ENCOUNTER → 2023-01-31 07:46 | Outpatient (BNV) | payer MEDICARE, SELFPAY | PROVIDERS: Admitting Provider Physician Assistant; PCP Internal Medicine; Visit Provider Urology | DX: N40.1 Benign prostatic hyperplasia with lower urinary tract symptoms (principal); R33.9 Retention of urine, unspecified; Z87.440 Personal history of urinary (tract) infections | CPT/HCPCS: 99222 ==

== ENCOUNTER → 2023-01-31 07:46 | Outpatient (BNV) | payer MEDICARE, SELFPAY | PROVIDERS: Admitting Provider Physician Assistant; PCP Internal Medicine; Visit Provider Physician Assistant | DX: M16.12 Unilateral primary osteoarthritis, left hip (principal) | CPT/HCPCS: 99222 ==

== ENCOUNTER → 2023-01-31 07:46 | Outpatient (BNV) | payer MEDICARE, SELFPAY | PROVIDERS: Admitting Provider Physician Assistant; PCP Internal Medicine; Visit Provider Orthopaedic Surgery | DX: N40.1 Benign prostatic hyperplasia with lower urinary tract symptoms (principal); R33.9 Retention of urine, unspecified; Z87.440 Personal history of urinary (tract) infections | CPT/HCPCS: 27130; 99024 ==

== ENCOUNTER 2023-02-16 13:25 | Outpatient (AMB) | payer MEDICARE, SELFPAY ==
--- NOTE | 2023-02-16 13:30 | A.OFFVIS_ITS ---
Intake Intake Visit Reasons: PO-LT MICKEY 01/31/23 NE Intake Note: Brain 77 yr old male presents today for his P/O visit for his Left MICKEY from 01/31/23. States he has been able to walk with out his walker and cane for short distance. States he still carries his cane with him due to his instability. Allergies adhesive tape [ADHESIVE TAPE] Allergy (Intermediate, Verified 02/16/23 13:43) RASH cashew nut [CASHEW NUT] Allergy (Intermediate, Verified 02/16/23 13:43) SWELLING sulfamethoxazole [From Bactrim] Allergy (Intermediate, Verified 02/16/23 13:43) Rash trimethoprim [From Bactrim] Allergy (Intermediate, Verified 02/16/23 13:43) Rash PERM HAIR DYE Allergy (Severe, Uncoded 02/16/23 13:43) severe rash HPI PO-LT MICKEY 01/31/23 NE HPI Details 77-year-old male who returns to the [facility] today for post-op left MICKEY, 01/31/23. He states he has no pain but is doing well overall. He reports he has been able to ambulate without his walker and cane for a short distance although he still carries his cane with him due to his instability. He has no concerns today. [facility] Medical History ADD (attention deficit disorder) Enlarged prostate Hyperkalemia Tardive dyskinesia Hard of hearing Hypothyroid Depression Polycythemia Osteoarthritis HTN (hypertension) Asthma Testicular cancer Surgical History Hx of unilateral orchiectomy Hx of excision of mass H/O colonoscopy History of cholecystectomy History of back surgery History of right knee surgery History of left knee surgery History of intestinal surgery Family History Father Clogged artery (heart) Mother Cardiac disease Social History Household Members: Spouse Housing: House Are you a primary lawn care professional to a significant other at home: No Do you presently have visiting nurse or other home services: No Alcohol intake: current Alcohol intake frequency: a few times a week Alcohol type: beer Patient Tobacco Use Status: Never used Tobacco Substance Use Type: Marijuana service: No Review of Systems Const All systems reviewed & are unremarkable except as noted in HPI and below Physical Exam Extrem Other: Left hip: Incision clean, dry and intact. No erythema. No swelling. No pain with ROM or hip flexion. NVI. Assessment & Plan Assessment & Plan (1) History of total left hip arthroplasty: Code(s): Z96.642 - Presence of left artificial hip joint Plan Wing removed, steri strips applied. He will begin to transition to Outpatient PT to continue working on Gait training, ROM and quad strength. No driving for another 4 weeks. He will require ppx abx for dental procedures. He will f/u in 4 weeks, sooner if needed. Patient Instructions: Scribed for Robe Montoya PA-C, by Quang Starkey medical billing instructor, on 02/16/2023 at 1:30 PM EST. I, Robe Montoya PA-C, have personally reviewed and agree with the information entered by the scribe. Coding Level of Care Code Global (68586) Diagnoses History of total left hip arthroplasty Z96.642
== END 2023-02-16 13:43 | disposition home or self-care (01) ==
PROVIDERS: PCP Internal Medicine; Visit Provider Physician Assistant
DX: Z96.642 Presence of left artificial hip joint (principal)
CPT/HCPCS: 99024

== ENCOUNTER → 2023-02-16 13:25 | Outpatient (BNVA) | payer MEDICARE, SELFPAY | PROVIDERS: PCP Internal Medicine; Visit Provider Physician Assistant | DX: Z47.1 Aftercare following joint replacement surgery (principal); Z96.642 Presence of left artificial hip joint | CPT/HCPCS: 99212 ==

== ENCOUNTER 2023-03-16 11:36 | Outpatient (REF) | payer MEDICARE, SELFPAY ==
--- NOTE | ~2023-03-16 | XR_ITS ---
EXAMINATION: XR PELVIS CLINICAL INFORMATION: Pain COMPARISON: Pelvis radiographs 01/31/2023 TECHNIQUE: AP view of the pelvis. FINDINGS: No acute fracture or dislocation. Status post left total hip arthroplasty. No evidence of hardware fracture or complication. Moderate osteoarthritis of the right hip with loss of superolateral joint space. Calcified phleboliths in the pelvis. Degenerative disc disease in the visualized lower lumbosacral spine. XR/XR pelvis 1-2V IMPRESSION: 1. Status post left total hip arthroplasty. No evidence of hardware fracture or complication. 2. Moderate osteoarthritis of the right hip. 3. Degenerative disc disease in the visualized lower lumbosacral spine.
== END 2023-03-16 11:37 | disposition home or self-care (01) ==
LOC: HO.HOSX 11:36
PROVIDERS: Visit Provider Orthopaedic Surgery
DX: M25.552 Pain in left hip (principal); M16.11 Unilateral primary osteoarthritis, right hip; Z96.642 Presence of left artificial hip joint
CPT/HCPCS: 72170; 99212

== ENCOUNTER 2023-03-16 12:17 | Outpatient (AMB) | payer MEDICARE, SELFPAY ==
--- NOTE | 2023-03-16 12:18 | A.OFFVIS_ITS ---
Intake Intake Visit Reasons: PO- Left MICKEY 01/31/23 NE Intake Note: Joel is a 77 year old male that presents today for his P/O visit for his Left MICKEY from 01/31/23. He reports the first 4 weeks post op went very well but after week 4 he has felt an intense ache in his groin and out aspect of his hip. He is taking Tylenol for his pain. He is no longer using a walker or a cane to ambulate. He has been discharged from physical therapy. X rays updated in the office today. Allergies adhesive tape [ADHESIVE TAPE] Allergy (Intermediate, Verified 03/16/23 12:32) RASH cashew nut [CASHEW NUT] Allergy (Intermediate, Verified 03/16/23 12:32) SWELLING sulfamethoxazole [From Bactrim] Allergy (Intermediate, Verified 03/16/23 12:32) Rash trimethoprim [From Bactrim] Allergy (Intermediate, Verified 03/16/23 12:32) Rash PERM HAIR DYE Allergy (Severe, Uncoded 03/16/23 12:32) severe rash Medication List - Last Reconciled 03/16/23 by Lizette Carrera RN acetaminophen 650 mg (2 x 325 mg) PO Q6H PRN 30 days alprazolam 1 mg PO BID amlodipine 5 mg PO DAILY aspirin 325 mg PO BID 42 days atorvastatin 80 mg PO DAILY celecoxib 200 mg PO BID 30 days cholecalciferol (vitamin D3) 25 mcg PO DAILY dextroamphetamine-amphetamine 20 mg (Adderall) 20 mg PO BID diclofenac sodium 75 mg PO BID PRN docusate sodium 100 mg PO BID 14 days escitalopram oxalate (Lexapro) 20 mg PO DAILY hydromorphone 2 mg PO Q4-6H PRN 7 days levothyroxine 125 mcg PO DAILY melatonin 10 mg PO BEDTIME methenamine hippurate 1 g PO BID multivitamin 1 tab PO DAILY omeprazole 40 mg PO DAILY primidone 50 mg PO BID propranolol ER 120 mg PO Q2D tamsulosin 0.4 mg PO BID testosterone cypionate 200 mg IM Q2W HPI PO- Left MICKEY 01/31/23 NE HPI Details Joel is a 78 year old man who presents ~6 weeks S/P left MICKEY. He says he has been having increased groin and lateral hip pain for the last ~2 weeks, which he describes as intense . He walks without an assistive device and he says he has been d/c from PT. [facility] Medical History ADD (attention deficit disorder) Enlarged prostate Hyperkalemia Tardive dyskinesia Hard of hearing Hypothyroid Depression Polycythemia Osteoarthritis HTN (hypertension) Asthma Testicular cancer Surgical History Hx of unilateral orchiectomy Hx of excision of mass H/O colonoscopy History of cholecystectomy History of back surgery History of right knee surgery History of left knee surgery History of intestinal surgery Family History Father Clogged artery (heart) Mother Cardiac disease Social History Household Members: Spouse Housing: House Are you a primary healthcare or medical to a significant other at home: No Do you presently have visiting nurse or other home services: No Alcohol intake: current Alcohol intake frequency: a few times a week Alcohol type: beer Patient Tobacco Use Status: Never used Tobacco Substance Use Type: Marijuana service: No Review of Systems Const All systems reviewed & are unremarkable except as noted in HPI and below Physical Exam Const General: no acute distress, alert and awake Orientation/consciousness: patient oriented x3 HEENT Head: Yes normocephalic and Yes atraumatic Eyes EOM: EOMs intact bilaterally Resp Effort & Inspection: normal respiratory effort and able to speak in complete sentences Cardio Jugular venous distension: no JVD Skin General skin exam: turgor normal Rashes: no rashes Neuro General: patient oriented x3 Extrem Other: mild-moderate pain with resisted er and ff ROM intact left hip Psych Appearance: grossly normal Affect: normal affect Attitude: cooperative Results Reviewed Results Reviewed: Left MICKEY in expected post operative position with no hardware complications or evidence of loosening Assessment & Plan Assessment & Plan (1) History of total left hip arthroplasty: Code(s): Z96.642 - Presence of left artificial hip joint Plan: Mild inflammation restart home anti-inflammatory d/c asa Plan Prepared for Ash Mckinley MD by Kalin Coughlin, medical clerical assistant, on 03/16/23 at 12:27 PM, EST. Orders: Orders XR pelvis 1-2V Today M25.559 - Pain in unspecified hip Coding Level of Care Code Global (13330) Diagnoses History of total left hip arthroplasty Z96.642
== END 2023-03-16 12:49 | disposition home or self-care (01) ==
PROVIDERS: PCP Internal Medicine; Visit Provider Orthopaedic Surgery
DX: Z96.642 Presence of left artificial hip joint (principal)
CPT/HCPCS: 99024

== ENCOUNTER 2023-04-27 11:19 | Outpatient (AMB) | payer MEDICARE, SELFPAY ==
--- NOTE | 2023-04-27 11:27 | MHC.OFFVIS ---
Intake Intake Visit Reasons: PO-Left MICKEY 01/31/23 NE-follow up Intake Note: Joel is a 78 year old male who presents today for his post operative visit s/p Left MICKEY from 01/31/23. At his last visit he had concerns of inflammation, he was instructed to d/c Aspirin and take at home NSAID Patient is doing well, with no complaints of the left hip.. He does finds that when he is sleeping on his side he has pain in left knee when the knees touch. Hx of surgery of the knee. Allergies adhesive tape [ADHESIVE TAPE] Allergy (Intermediate, Verified 03/16/23 12:32) RASH cashew nut [CASHEW NUT] Allergy (Intermediate, Verified 03/16/23 12:32) SWELLING sulfamethoxazole [From Bactrim] Allergy (Intermediate, Verified 03/16/23 12:32) Rash trimethoprim [From Bactrim] Allergy (Intermediate, Verified 03/16/23 12:32) Rash PERM HAIR DYE Allergy (Severe, Uncoded 03/16/23 12:32) severe rash HPI PO-Left MICKEY 01/31/23 NE-follow up HPI Details Joel is a 78 year old man who presents ~3 months S/P left MICKEY. He has been using NSAIDs for pain & inflammation relief, and discontinued his ASA. He says he is doing well and his groin pain has improved. He has no complaints regarding his hip. He reports increased left knee pain if he lays or sleeps on his side. [facility] Medical History ADD (attention deficit disorder) Enlarged prostate Hyperkalemia Tardive dyskinesia Hard of hearing Hypothyroid Depression Polycythemia Osteoarthritis HTN (hypertension) Asthma Testicular cancer Surgical History Hx of unilateral orchiectomy Hx of excision of mass H/O colonoscopy History of cholecystectomy History of back surgery History of right knee surgery History of left knee surgery History of intestinal surgery Family History Father Clogged artery (heart) Mother Cardiac disease Social History Household Members: Spouse Housing: House Are you a primary dialysis patient care technician to a significant other at home: No Do you presently have visiting nurse or other home services: No Alcohol intake: current Alcohol intake frequency: a few times a week Alcohol type: beer Patient Tobacco Use Status: Never used Tobacco Substance Use Type: Marijuana service: No Review of Systems Const All systems reviewed & are unremarkable except as noted in HPI and below Physical Exam Const General: no acute distress, alert and awake Orientation/consciousness: patient oriented x3 HEENT Head: Yes normocephalic and Yes atraumatic Eyes EOM: EOMs intact bilaterally Resp Effort & Inspection: normal respiratory effort and able to speak in complete sentences Cardio Jugular venous distension: no JVD Skin General skin exam: turgor normal Rashes: no rashes Neuro General: patient oriented x3 Extrem Other: nl gait no pain with hip ROM Psych Appearance: grossly normal Affect: normal affect Attitude: cooperative Assessment & Plan Assessment & Plan (1) History of total left hip arthroplasty: Code(s): Z96.642 - Presence of left artificial hip joint Plan: Doing well s/p hip MICKEY Discussed dental prophylaxis Continue activity as tolerated Plan Prepared for Ash Mckinley MD by Kalin Coughlin, medical doctor md/medical director, on 04/27/23 at 11:35 AM, EST. Coding Level of Care Code Global (97169) Diagnoses History of total left hip arthroplasty Z96.642
== END 2023-04-27 11:42 | disposition home or self-care (01) ==
PROVIDERS: PCP Internal Medicine; Visit Provider Orthopaedic Surgery
DX: Z96.642 Presence of left artificial hip joint (principal)
CPT/HCPCS: 99024

== ENCOUNTER → 2023-04-27 11:19 | Outpatient (BNVA) | payer MEDICARE, SELFPAY | PROVIDERS: PCP Internal Medicine; Visit Provider Orthopaedic Surgery | DX: Z47.1 Aftercare following joint replacement surgery (principal); Z96.642 Presence of left artificial hip joint | CPT/HCPCS: 99212 ==

== ENCOUNTER 2023-06-27 07:05 | Day surgery (SDC) | payer MEDICARE, SELFPAY ==
[2023-06-23 12:05] VITALS: BMI 24.6
--- NOTE | 2023-06-23 15:04 | HO.ANESPROP2 ---
Documented by User: Nichol Conrad NP 06/23/23 15:05 HPI - Anesthesia Eval Consult details Narrative: 78yo M for Colonoscopy s/p Total hip 01/2023 with GA-ETT 7 Prior to: Cardiac optimized PCP cleared No recent illness No CP/SOB with stairs and rowing Bilat hearing aides Asthma. Stable. No inhalers needed Polycythemia - r/t testosterone injections (post-orchiectomy). Does not require phlebotomies. Tardive dyskinesia - ? d/t depression rx. Changed since but symptoms persist. Jaw moves with talking and resting tremors Chronic UTI - methenamine Hyperkalemia - transient, but upper normal for years, unclear etiology per patient. As high as 6.5 with preop labs. Repeat DOS. PMFSH Active Problems Active Problems: All Active Problems History of total left hip arthroplasty (Acute) Osteoarthritis of right knee (Acute) Osteoarthritis of left knee (Acute) Osteoarthritis of right hip (Acute) Osteoarthritis of left hip (Acute) Varus deformity of knee (Acute) Bilateral primary osteoarthritis of knee (Acute) Bilateral primary osteoarthritis of hip (Acute) AGUA CALIENTE (hard of hearing) (Acute) Left otitis media (Acute) Left otitis externa (Acute) Bilateral inguinal hernia (Acute) Polycythemia (Acute) Hyperkalemia (Acute) Hypertension (Acute) BECKMAN (dyspnea on exertion) (Acute) Asthma (Acute) Past Medical History Medical History (Updated 02/03/23 @ 00:04 by Hans Zamora) History of recurrent UTIs Incomplete bladder emptying BPH loc w urin obs/LUTS ADD (attention deficit disorder) Enlarged prostate Hyperkalemia Tardive dyskinesia Hard of hearing Hypothyroid Depression Polycythemia Osteoarthritis HTN (hypertension) Asthma Testicular cancer Family History Family History Father Clogged artery (heart) Mother Cardiac disease Family history of problems with anesthesia: No Surgical History Surgical History (Updated 06/23/23 @ 12:00 by Savita Parry RN) History of total left hip arthroplasty Hx of unilateral orchiectomy Hx of excision of mass H/O colonoscopy History of cholecystectomy History of back surgery History of right knee surgery History of left knee surgery History of intestinal surgery History of Problems with Anesthesia: No Social History Social History Household Members: Spouse Housing: House Are you a primary spiritual care coordinator to a significant other at home: No Do you presently have visiting nurse or other home services: No Alcohol intake: current Alcohol intake frequency: a few times a week Alcohol type: beer Patient Tobacco Use Status: Never used Tobacco Substance Use Type: Marijuana Advance Directives: No Advance Directives Information Provided: Yes Advance Directives on File: Yes Advance Directives Date on File: 02/03/23 service: No Meds Allergies Allergy/AdvReac Type Severity Reaction Status Date / Time adhesive tape [ADHESIVE TAPE] Allergy Intermediate RASH Verified 03/16/23 12:32 cashew nut [CASHEW NUT] Allergy Intermediate SWELLING Verified 03/16/23 12:32 sulfamethoxazole Allergy Intermediate Rash Verified 03/16/23 12:32 [From Bactrim] trimethoprim [From Bactrim] Allergy Intermediate Rash Verified 03/16/23 12:32 PERM HAIR DYE Allergy Severe severe rash Uncoded 03/16/23 12:32 Home Medications ?Medication ?Instructions ?Recorded ?Confirmed ?Last Taken ?Type atorvastatin 80 mg tablet 80 mg PO DAILY 03/05/20 06/23/23 Unknown History levothyroxine 125 mcg tablet 125 mcg PO DAILY 03/05/20 06/23/23 06/27/23 History omeprazole 40 mg capsule,delayed 40 mg PO DAILY 03/05/20 06/23/23 06/27/23 History release testosterone cypionate 200 mg/mL 200 mg IM Q2W 03/05/20 06/23/23 Unknown History intramuscular oil cholecalciferol (vitamin D3) 25 25 mcg PO DAILY 04/30/20 06/23/23 Unknown History mcg (1,000 unit) capsule primidone 50 mg tablet 50 mg PO BID 04/30/20 06/23/23 01/31/23 History tamsulosin 0.4 mg capsule 0.4 mg PO BID 04/30/20 06/23/23 01/31/23 History escitalopram oxalate 20 mg tablet 20 mg PO DAILY 04/05/21 06/23/23 01/31/23 History (Lexapro) alprazolam 1 mg tablet 1 mg PO BID 07/07/21 06/23/23 01/31/23 History dextroamphetamine-amphetamine 20 20 mg PO BID 07/07/21 06/23/23 Unknown History mg tablet (Adderall) propranolol 120 mg capsule,24 120 mg PO Q2D 07/07/21 06/23/23 06/27/23 History hr,extended release diclofenac sodium 75 mg 75 mg PO BID PRN Pain 08/18/22 06/23/23 06/19/23 History tablet,delayed release methenamine hippurate 1 gram tablet 1 g PO BID 08/18/22 06/23/23 01/31/23 History multivitamin 1 tab PO DAILY 08/18/22 06/23/23 Unknown History melatonin 10 mg tablet 10 mg PO BEDTIME 01/23/23 06/23/23 Unknown History Exam Height,Weight and Vital Signs: Height 5 ft 8 in Weight 73.482 kg Assessment and Plan Assessment Anesthesia Assessment: Chart Reviewed Final Anesthetic Review Family History of Problems with Anesthesia: No History of Problems with Anesthesia: No Documented by User: Antonietta Cespedes MD 06/27/23 07:38 PMFSH Past Medical History Medical History (Updated 02/03/23 @ 00:04 by Hans Zamora) History of recurrent UTIs Incomplete bladder emptying BPH loc w urin obs/LUTS ADD (attention deficit disorder) Enlarged prostate Hyperkalemia Tardive dyskinesia Hard of hearing Hypothyroid Depression Polycythemia Osteoarthritis HTN (hypertension) Asthma Testicular cancer Family History Family History Father Clogged artery (heart) Mother Cardiac disease Surgical History Surgical History (Updated 06/23/23 @ 12:00 by Savita Parry RN) History of total left hip arthroplasty Hx of unilateral orchiectomy Hx of excision of mass H/O colonoscopy History of cholecystectomy History of back surgery History of right knee surgery History of left knee surgery History of intestinal surgery Social History Social History Household Members: Spouse Housing: House Are you a primary spiritual care coordinator to a significant other at home: No Do you presently have visiting nurse or other home services: No Alcohol intake: current Alcohol intake frequency: a few times a week Alcohol type: beer Patient Tobacco Use Status: Never used Tobacco Substance Use Type: Marijuana Advance Directives: No Advance Directives Information Provided: Yes Advance Directives on File: Yes Advance Directives Date on File: 02/03/23 service: No Meds Allergies Allergy/AdvReac Type Severity Reaction Status Date / Time adhesive tape [ADHESIVE TAPE] Allergy Intermediate RASH Verified 03/16/23 12:32 cashew nut [CASHEW NUT] Allergy Intermediate SWELLING Verified 03/16/23 12:32 sulfamethoxazole Allergy Intermediate Rash Verified 03/16/23 12:32 [From Bactrim] trimethoprim [From Bactrim] Allergy Intermediate Rash Verified 03/16/23 12:32 PERM HAIR DYE Allergy Severe severe rash Uncoded 03/16/23 12:32 Home Medications ?Medication ?Instructions ?Recorded ?Confirmed ?Last Taken ?Type atorvastatin 80 mg tablet 80 mg PO DAILY 03/05/20 06/23/23 Unknown History levothyroxine 125 mcg tablet 125 mcg PO DAILY 03/05/20 06/23/23 06/27/23 History omeprazole 40 mg capsule,delayed 40 mg PO DAILY 03/05/20 06/23/23 06/27/23 History release testosterone cypionate 200 mg/mL 200 mg IM Q2W 03/05/20 06/23/23 Unknown History intramuscular oil cholecalciferol (vitamin D3) 25 25 mcg PO DAILY 04/30/20 06/23/23 Unknown History mcg (1,000 unit) capsule primidone 50 mg tablet 50 mg PO BID 04/30/20 06/23/23 01/31/23 History tamsulosin 0.4 mg capsule 0.4 mg PO BID 04/30/20 06/23/23 01/31/23 History escitalopram oxalate 20 mg tablet 20 mg PO DAILY 04/05/21 06/23/23 01/31/23 History (Lexapro) alprazolam 1 mg tablet 1 mg PO BID 07/07/21 06/23/23 01/31/23 History dextroamphetamine-amphetamine 20 20 mg PO BID 07/07/21 06/23/23 Unknown History mg tablet (Adderall) propranolol 120 mg capsule,24 120 mg PO Q2D 07/07/21 06/23/23 06/27/23 History hr,extended release diclofenac sodium 75 mg 75 mg PO BID PRN Pain 08/18/22 06/23/23 06/19/23 History tablet,delayed release methenamine hippurate 1 gram tablet 1 g PO BID 08/18/22 06/23/23 01/31/23 History multivitamin 1 tab PO DAILY 08/18/22 06/23/23 Unknown History melatonin 10 mg tablet 10 mg PO BEDTIME 01/23/23 06/23/23 Unknown History Exam Airway Mallampati Class: II TM Dist: >3cm Neck ROM: Full Assessment and Plan Assessment Anesthesia Assessment: Anesthesia Plan Discussed Final Anesthetic Review NPO: Yes ASA Class: III Final Preanesthetic Review: No Changes in Pt Med Stat, Meds/Allgs Chart Reviewed, Consent Obtained/Reviewed and Anes Risks/Benef Reviewed Patient Risk: Intermediate Procedure Risk: Low Anesthetic Plan Anesthetic Plan: TIVA Disposition: Standard PACU
[2023-06-27 07:13] VITALS: BP 126/70; PULSE 82; RESP 18; TEMP 36.9; O2SAT 97
[2023-06-27] MEDS: Lactated Ringers 1,000 ML 100 ML IVCONT (07:28)
--- NOTE | 2023-06-27 08:14 | MHC.SHP ---
Pre-Procedural Eval Section A - 24 Hr Update-Section A only Date of Service: 06/27/23 Section B - Complete if H&P > 30 days Chief Complaint: Personal history of colonic polyps Details of Present Illness: see H&P no changes Relevant Family History (Specify if Yes): No Relevant Social History: None Present Medications: see Short Stay Collaborative assessment Medical History: No relevant PMH History of Previous Operations: No relevant previous surgery Allergies: Allergies Allergy/AdvReac Type Severity Reaction Status Date / Time adhesive tape [ADHESIVE TAPE] Allergy Intermediate RASH Verified 03/16/23 12:32 cashew nut [CASHEW NUT] Allergy Intermediate SWELLING Verified 03/16/23 12:32 sulfamethoxazole Allergy Intermediate Rash Verified 03/16/23 12:32 [From Bactrim] trimethoprim [From Bactrim] Allergy Intermediate Rash Verified 03/16/23 12:32 PERM HAIR DYE Allergy Severe severe rash Uncoded 03/16/23 12:32 Review of Systems Sugical H&P ROS: Negative: Constitution, Cardiovascular, Respiratory, Neurological, Psychiatric, Hem-Onc, Allergic/Immunologic, Gastrointestinal, Genitourinary, Musculoskeletal, Integumentary, Endocrine and Eyes/Ears/Nose/Throat Exam Surgical H&P Exam: Normal: HEENT, Normal: Heart, Normal: Lungs, Normal: Extremities, Normal: Abdomen, Normal: Skin and Normal: Neurological Plan Diagnosis/Plan: Unchanged I have reviewed the history and physical and performed a pertinent physical examination on my patient. No changes have occurred unless specified. Time Spent With Patient Time: Total time managing care of this patient today ____ minutes.
[2023-06-27 08:55] VITALS: BP 107/57; PULSE 69; RESP 16; TEMP 36.9; O2SAT 97
--- NOTE | 2023-06-27 09:19 | OP_ITS ---
DATE OF SERVICE: 06/27/2023 SURGEON: Ramone Teixeira MD INDICATIONS: Colon cancer screening and prior history of adenomatous colon polyps. PREOPERATIVE DIAGNOSIS: POSTOPERATIVE DIAGNOSIS: PROCEDURE PERFORMED: Colonoscopy to the terminal ileum with biopsy and snare polypectomy. ESTIMATED BLOOD LOSS: COMPLICATIONS: ANESTHESIA: Monitored anesthesia care. ASSISTANTS: SPECIMENS: DESCRIPTION OF PROCEDURE: A history and physical performed. The risks and benefits of the procedure were explained to the patient. Informed consent was obtained. The patient was placed in the left lateral decubitus position. A digital rectal exam was performed and was found to be normal. The Olympus pediatric video colonoscope was introduced into the rectum and advanced to the cecum. The cecum was identified by transillumination, palpation, and identification of ileocecal valve. Examination was performed. The scope was removed. He tolerated the procedure well and returned to recovery area in stable condition. FINDINGS: The terminal ileum was normal. The visualized colonic mucosa was normal. Quality of the prep was good. In the right colon was a less than 5 mm sessile polyp, which was removed with biopsy forceps. In the rectum was an 8 mm sessile polyp, which was removed with a cold snare. There was mild diverticulosis. Retroflexed examination showed small internal hemorrhoids. IMPRESSION: Colon polyps. RECOMMENDATION: Follow up the biopsy results. MD MARIELLE Cui/MIRIAM / [id number] MTDD
[2023-06-27 09:24] VITALS: BP 149/55; PULSE 60; RESP 17; TEMP 36.9; O2SAT 94
== END 2023-06-27 09:55 | disposition home or self-care (01) ==
PROVIDERS: PCP Internal Medicine; Visit Provider Internal Medicine Gastroenterology
PROC: 0DJD8ZZ Inspection of Lower Intestinal Tract, Via Natural or Artificial Opening Endoscopic (ICD-10-PCS; CPT 45378; principal; 2023-06-27 08:20)
DX: Z12.11 Encounter for screening for malignant neoplasm of colon (principal); D12.2 Benign neoplasm of ascending colon; D12.8 Benign neoplasm of rectum; K57.30 Diverticulosis of large intestine without perforation or abscess without bleeding; K64.8 Other hemorrhoids; Z86.010 Personal history of colon polyps; I10 Essential (primary) hypertension; Z88.2 Allergy status to sulfonamides
CPT/HCPCS: 45385; 45380; 88305; J2704

== ENCOUNTER 2023-08-21 12:56 | Outpatient (AMB) | payer MEDICARE, SELFPAY ==
[2023-08-21 12:58] VITALS: BP 130/60; PULSE 53; BMI 25.1
--- NOTE | 2023-08-21 12:58 | MHC.OFFVIS ---
Vital Signs 08/21/23 12:58 Height 5 ft 8 in Weight 164 lb 14.492 oz BMI 25.1 BP 130/60 Blood Pressure Location Lt brachial Position Sitting Pulse 53 Pulse Source Monitor Intake Visit Reasons: 1 year follow up Reimbursement Consultant Required: No Accompanied by: Self / Same As Patient Allergies adhesive tape [ADHESIVE TAPE] Allergy (Intermediate, Verified 03/16/23 12:32) RASH cashew nut [CASHEW NUT] Allergy (Intermediate, Verified 03/16/23 12:32) SWELLING sulfamethoxazole [From Bactrim] Allergy (Intermediate, Verified 03/16/23 12:32) Rash trimethoprim [From Bactrim] Allergy (Intermediate, Verified 03/16/23 12:32) Rash PERM HAIR DYE Allergy (Severe, Uncoded 03/16/23 12:32) severe rash Medication List - Last Reconciled 08/21/23 by Lakhwinder De Souza MD acetaminophen 650 mg (2 x 325 mg) PO Q6H PRN 30 days alprazolam 1 mg PO BID amlodipine 5 mg PO DAILY atorvastatin 80 mg PO DAILY cholecalciferol (vitamin D3) 25 mcg PO DAILY dextroamphetamine-amphetamine 20 mg (Adderall) 20 mg PO BID diclofenac sodium 75 mg PO BID PRN docusate sodium 100 mg PO BID 14 days escitalopram oxalate (Lexapro) 20 mg PO DAILY hydromorphone 2 mg PO Q4-6H PRN 7 days levothyroxine 125 mcg PO DAILY melatonin 10 mg PO BEDTIME methenamine hippurate 1 g PO BID multivitamin 1 tab PO DAILY omeprazole 40 mg PO DAILY primidone 50 mg PO BID propranolol ER 120 mg PO Q2D tamsulosin 0.4 mg PO BID testosterone cypionate 200 mg IM Q2W HPI Comments Details: 78-year-old gentleman with dyspnea on exertion who is here for follow-up. He was taken for cardiac catheterization for his progressive dyspnea which did not show any significant coronary disease. His filling pressures at rest were normal. His blood pressure was elevated and he was started on amlodipine. His BP is better. He was diagnosed with exercise induced asthma. He underwent back surgery and is recovering from that. He tried to do some exercise but had some dyspnea and fatigue. I have explained to him that this is quite normal after surgery. 08/21/23: he is here for f/u. He underwent hip surgery in 02/15/2023. He is saying that he has recovered from that was breathing has been bad. He previously was diagnosed with exercise-induced asthma and was on some inhalers which he has not used for few months. He is getting shortness of breath with activities. No other significant complaints. [facility] Medical History (Updated 02/03/23 @ 00:04 by Background Daemon) History of recurrent UTIs Incomplete bladder emptying BPH loc w urin obs/LUTS ADD (attention deficit disorder) Enlarged prostate Hyperkalemia Tardive dyskinesia Hard of hearing Hypothyroid Depression Polycythemia Osteoarthritis HTN (hypertension) Asthma Testicular cancer Surgical History Hip joint replacement status History of total left hip arthroplasty Hx of unilateral orchiectomy Hx of excision of mass H/O colonoscopy History of cholecystectomy History of back surgery History of right knee surgery History of left knee surgery History of intestinal surgery Family History Father Clogged artery (heart) Mother Cardiac disease Social History Household Members: Spouse Housing: House Are you a primary doggy daycare activities director to a significant other at home: No Do you presently have visiting nurse or other home services: No Alcohol intake: current Alcohol intake frequency: a few times a week Alcohol type: beer Patient Tobacco Use Status: Never used Tobacco Substance Use Type: Marijuana Advance Directives Date on File: 02/03/23 service: No Review of Systems Const Denies chills, Denies fatigue, Denies fever(s), Denies frequent falls, Denies weakness, Denies weight gain and Denies weight loss ENT Denies dizziness Card Denies chest pain, Denies leg edema, Denies lightheadedness, Denies palpitations, Denies dyspnea and Denies dyspnea on exertion Resp Denies cough, Denies dyspnea and Denies dyspnea on exertion GI Denies hematochezia Musc Denies abnormal gait, Denies muscle weakness, Denies numbness, Denies radiating pain into limb and Denies tingling Neuro Denies abnormal gait, Denies dizziness, Denies frequent falls, Denies numbness, Denies tingling and Denies weakness Endo Denies fatigue and Denies palpitations Physical Exam Vital Signs: Last Vital Signs Pulse 53 08/21/23 12:58 BP 130/60 08/21/23 12:58 BMI result Body Mass Index 25.1 GENERAL APPEARANCE: in no acute distress. NECK/THYROID: no carotid bruit, no jugular venous distention. SKIN: no suspicious lesions, warm and dry. HEART: no murmurs, regular rate and rhythm, S1, S2 normal. LUNGS: clear to auscultation bilaterally. ABDOMEN: normal, bowel sounds present, soft, nontender, nondistended. EXTREMITIES: no clubbing, cyanosis, or edema. PERIPHERAL PULSES: equal. NEUROLOGIC: nonfocal, alert and oriented. Office Procedures EKG Details: Sinus bradycardia 53 beats per minute, otherwise normal EKG, QTC 384 milliseconds. [id number], Complete Assessment & Plan Assessment & Plan (1) Hypertension: Code(s): I10 - Essential (primary) hypertension Category: Medical Qualifiers: Hypertension type: essential hypertension Qualified Code(s): I10 - Essential (primary) hypertension (2) BECKMAN (dyspnea on exertion): Comment: DYSPNEA ON EXERTION, MAINLY DUE TO EXERCISE INDUCED ASTHMA, AND IS MUCH IMPROVED, AND ALMOST RESOLVED. Code(s): R06.00 - Dyspnea, unspecified Category: Medical Plan Pleasant 78 year gentleman who is here for follow-up. He has background history of hypertension and dyspnea on exertion which after workup was diagnosed as exercise-induced asthma. He was previously using inhalers which he has stopped using for few months now. He is saying his breathing has been worse for few months now. Clinically not in heart failure. Blood pressure is well controlled. I have advised him to resume his inhalers and reassess his breathing after that. We will see him back in few months. If he continues to get symptoms then we will consider cardiopulmonary exercise stress test. Thank you for allowing me to participate in the care of your patient. Please feel free to contact me if you have any questions. Coding Level of Care Code Est Pt Level 4 (10733) Diagnoses Essential hypertension I10 Hypertension type: essential hypertension BECKMAN (dyspnea on exertion) R06.00 CPT Codes EKG - CPT: 59950-[id number], Complete ([id number])
== END 2023-08-21 13:25 | disposition home or self-care (01) ==
PROVIDERS: PCP Internal Medicine; Visit Provider Internal Medicine Cardiovascular Disease
DX: I10 Essential (primary) hypertension (principal); R06.00 Dyspnea, unspecified
CPT/HCPCS: 93010; 99214

== ENCOUNTER → 2023-08-21 12:56 | Outpatient (BNVA) | payer MEDICARE, SELFPAY | PROVIDERS: PCP Internal Medicine; Visit Provider Internal Medicine Cardiovascular Disease | DX: I10 Essential (primary) hypertension (principal); R06.00 Dyspnea, unspecified | CPT/HCPCS: 93005; 99212 ==

== ENCOUNTER 2023-09-06 07:51 | Outpatient (REF) | payer MEDICARE, SELFPAY ==
--- NOTE | ~2023-09-06 | XR_ITS ---
EXAMINATION: XR HIP, LEFT CLINICAL INFORMATION: Pain, fall COMPARISON: radiographs 03/16/2023 TECHNIQUE: Two views of the left hip. One view of the pelvis. FINDINGS: Status post L4-L5 lumbar spinal fusion with interbody disc spacer. Degenerative disc disease in the visualized lower lumbosacral spine. Status post left total hip arthroplasty. No evidence of hardware fracture or complication. No perihardware fracture. Moderate to advanced osteoarthritis of the right hip with loss of joint space, unchanged. Soft tissues are unremarkable. XR/XR hip LT min 2V IMPRESSION: 1. Status post left total hip arthroplasty. No evidence of hardware fracture or complication. 2. Moderate osteoarthritis of the right hip, unchanged. 3. Status post L4-L5 lumbar spinal fusion with interbody disc spacer. Degenerative disc disease in the visualized lower lumbosacral spine.
--- NOTE | ~2023-09-06 | XR_ITS ---
EXAMINATION: XR WRIST, RIGHT CLINICAL INFORMATION: pain COMPARISON: None available. TECHNIQUE: PA, lateral, and oblique views of the right wrist. FINDINGS: No acute fracture or dislocation. Advanced osteoarthritis of the wrist worse involving the first carpometacarpal joint where there is complete loss of joint space. Widening of the scapholunate interval which can be seen in the setting of scapholunate dissociation. Soft tissues are unremarkable. XR/XR wrist RT min 3V IMPRESSION: 1. Advanced osteoarthritis of the wrist worse involving the first carpometacarpal joint where there is complete loss of joint space. 2. Widening of the scapholunate interval which can be seen in the setting of scapholunate dissociation.
== END 2023-09-06 07:52 | disposition home or self-care (01) ==
LOC: HO.HOSX 07:51
DX: M19.131 Post-traumatic osteoarthritis, right wrist (principal); T14.90XS Injury, unspecified, sequela; R20.0 Anesthesia of skin; R20.2 Paresthesia of skin; Z96.642 Presence of left artificial hip joint
CPT/HCPCS: 73110; 73502; 99212

== ENCOUNTER 2023-09-06 13:02 | Outpatient (AMB) | payer MEDICARE, SELFPAY ==
--- NOTE | 2023-09-06 13:14 | A.OFFVIS_ITS ---
Vital Signs 09/06/23 13:28 Height 5 ft 8 in Intake Visit Reasons: Newp-Numbness/tingling in 4th &5th fing of rt hand Intake Note: Joel is a 78 year old left hand dominant male who presents today for a evaluation of his right 3rd, 4th and 5th finger numbness. Patient reports ongoing numbness for about 3 - 4 months and getting worse. He expresses that his pain is worse at night, he wears a compression wrist sleeve to help with the pain. Patient mentioned he had a fall about 3 weeks ago which he had his left hip replaced. He states that his hip keeps popping when he is sitting and standing. Allergies adhesive tape [ADHESIVE TAPE] Allergy (Intermediate, Verified 09/06/23 13:36) RASH cashew nut [CASHEW NUT] Allergy (Intermediate, Verified 09/06/23 13:36) SWELLING sulfamethoxazole [From Bactrim] Allergy (Intermediate, Verified 09/06/23 13:36) Rash trimethoprim [From Bactrim] Allergy (Intermediate, Verified 09/06/23 13:36) Rash PERM HAIR DYE Allergy (Severe, Uncoded 03/16/23 12:32) severe rash HPI HPI Newp-Numbness/tingling in 4th &5th fing of rt hand: Details: Patient is a 78-year-old male status post total hip arthroplasty with Dr. Mckinley in 2022 presents for evaluation of pain, numbness, tingling in his right hand and wrist, ongoing for 3-4 months and worsening. Patient reports that his numbness and tingling is worse in his right small finger, but it also occurs in his right ring and right middle fingers. Numbness and tingling are constant. Patient also reports soreness in his right wrist that occurs at all times, along with point tenderness that he reports only occurs once in a while . The patient reports that the diclofenac he has been prescribed for back pain works well for pain alleviation in the wrist, and that a compression sleeve that he has been using helps a lot as well. 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 Patient has also evaluated for left hip discomfort status post fall 2-3 weeks ago. Patient reports that his hip pain has resolved since his fall, but reports that he has some clicking in his left hip approximately half the time whenever he attempts to rise from being seated or out of bed. [facility] Medical History (Updated 09/06/23 @ 16:07 by PRAVEEN Braun) History of recurrent UTIs Incomplete bladder emptying BPH loc w urin obs/LUTS ADD (attention deficit disorder) Enlarged prostate Hyperkalemia Tardive dyskinesia Hard of hearing Hypothyroid Depression Polycythemia Osteoarthritis HTN (hypertension) Asthma Testicular cancer Surgical History Hip joint replacement status History of total left hip arthroplasty Hx of unilateral orchiectomy Hx of excision of mass H/O colonoscopy History of cholecystectomy History of back surgery History of right knee surgery History of left knee surgery History of intestinal surgery Family History Father Clogged artery (heart) Mother Cardiac disease Social History Household Members: Spouse Housing: House Are you a primary healthcare project manager to a significant other at home: No Do you presently have visiting nurse or other home services: No Alcohol intake: current Alcohol intake frequency: a few times a week Alcohol type: beer Patient Tobacco Use Status: Never used Tobacco Substance Use Type: Marijuana Advance Directives Date on File: 02/03/23 service: No Review of Systems Const All systems reviewed & are unremarkable except as noted in HPI and below Physical Exam Const Other: Patient is alert, oriented, cooperative, and in no acute distress HEENT Head: Yes normocephalic and Yes atraumatic Resp Effort & Inspection: normal respiratory effort and able to speak in complete sentences Cardio Jugular venous distension: no JVD Neuro General: gait normal Cognition (Neuro): normal cognition Extrem Other: Right Hand Patient is alert, oriented, and in no acute distress. Neuro: Patient reports diminished sensation in the small finger, index finger, and middle finger at this time. Normal sensation in right thumb and index finger Vascular: Cap refill brisk Pain: Patient reports general soreness in the right wrist, as well as point tenderness at the radioscaphoid joint. ROM: Patient is able to make a closed fist without difficulty Good finger cross Skin: No lacerations or abrasions. General: No ecchymosis, erythema, or evidence of infection. Left Hip No edema or erythema of the L hip No tenderness to palpation of the L hip Full and intact ROM of the L hip, no restrictions to flexion, internal rotation, external rotation Patient reports a catching sensation when rising from a seated position Psych: Appears grossly normal Affect normal Attitude cooperative Psych Appearance: grossly normal Mental Status: mental status grossly normal Results Reviewed Results Reviewed: X-rays obtained in the office today and independently reviewed by me, Ortega De La Garza PA-C, demonstrate: L hip: Total hip prosthesis in satisfactory clinical placement and alignment. No evidence of fracture or acute bony abnormality R wrist: Significant arthritis of the radioscaphoid joint, widening of the sca pholunate space, severe arthritis between the capitate and lunate, and severe basal joint arthritis. Assessment & Plan Assessment & Plan (1) History of total left hip arthroplasty: Code(s): Z96.642 - Presence of left artificial hip joint Category: Surgical (2) SLAC (scapholunate advanced collapse) wrist: Code(s): M19.139 - Post-traumatic osteoarthritis, unspecified wrist Category: Medical Qualifiers: Laterality: right Qualified Code(s): M19.131 - Post-traumatic osteoarthritis, right wrist (3) Osteoarthritis of left hip: Code(s): M16.12 - Unilateral primary osteoarthritis, left hip Category: Medical Qualifiers: Osteoarthritis type: primary Qualified Code(s): M16.12 - Unilateral primary osteoarthritis, left hip (4) Numbness and tingling of right hand: Code(s): R20.0 - Anesthesia of skin; R20.2 - Paresthesia of skin Category: Medical Plan 1. Numbness and tingling of right hand Dense numbness Patient was referred for nerve conduction study Patient will follow-up in 4-6 weeks after nerve conduction study to discuss potential treatment options 2. Scapholunate advanced collapse of right wrist Symptoms and radiographic findings during today's exam suggestive of SLAC wrist Patient offered Velcro wrist splint, but states that he would prefer to continue to wear the compression sleeve he has been wearing previously, as he feels this works well to bring him relief. Patient will follow-up in 4-[address] Adames for discussion of treatment options, such as injection under C-arm x-ray guidance 3. Left hip pain after fall Status post left MICKEY with Dr. Mckinley DOS 01/31/2023 Patient educated that it is highly unlikely that the joint is subluxating Good radiographic alignment on x-rays today Patient educated that sensation is likely secondary to soft tissue dysfunction, and is offered referral to physical therapy Patient refuses PT referral Patient is educated to call and make an appointment if the issue does not resolve in the next 4-6 weeks Orders: Orders XR hip LT min 2V Today M25.552 - Pain in left hip XR pelvis 1-2V Today M25.559 - Pain in unspecified hip XR wrist RT min 3V Today M25.531 - Pain in right wrist Coding Level of Care Code Est Pt Level 5 (95416) Diagnoses History of total left hip arthroplasty Z96.642 Scapholunate advanced collapse of right wrist M19.131 Laterality: right Primary osteoarthritis of left hip M16.12 Osteoarthritis type: primary Numbness and tingling of right hand R20.0; R20.2 Time Spent (min) 60
== END 2023-09-06 14:39 | disposition home or self-care (01) ==
PROVIDERS: PCP Internal Medicine
DX: M19.131 Post-traumatic osteoarthritis, right wrist (principal); M16.12 Unilateral primary osteoarthritis, left hip; Z96.642 Presence of left artificial hip joint; R20.0 Anesthesia of skin; R20.2 Paresthesia of skin
CPT/HCPCS: 99214

== ENCOUNTER 2023-09-25 14:11 | Outpatient (REF) | payer MEDICARE, SELFPAY ==
--- NOTE | ~2023-09-25 | XR_ITS ---
EXAMINATION: XR ABDOMEN COMPLETE CLINICAL INDICATION: Abdominal pain COMPARISON: None available. TECHNIQUE: 2 views of the abdomen. FINDINGS: The bowel gas pattern is normal with no evidence of ileus or obstruction. No unusual soft tissue calcifications are noted. Degenerative changes and scoliosis are present in the spine. There is lateral and posterior fixation seen at L3-L4 with an interbody device. A left hip prosthesis is partially visualized. We pelvis are present in the pelvis. No unusual calcifications. XR/XR abdomen min 2V IMPRESSION: No evidence of bowel obstruction. Incidental findings as described above.
[2023-09-25 14:37] LABS: MANUAL DIFF FLAG NO
[2023-09-25 14:46] LABS: Basophils Percent Auto 0.2 % (0-2); Eosinophils Absolute Auto 0.1 X10*3/uL (0.0-0.4); Eosinophils Percent Auto 1.6 % (0-4); Hematocrit 48.4 % (42.0-52.0); Hemoglobin 16.4 g/dl (14.0-18.0); Imm Gran Abs Auto 0.03 X10*3/uL (0.00-0.03); Imm Gran Pct Auto 0.3 % (0.0-0.4); Lymphocytes Absolute Auto 1.4 X10*3/uL (1.2-4.9); Lymphocytes Percent Auto 15.7 % (20-40); Mean Corpuscular HGB Conc 33.9 g/dl (31.0-36.0); Mean Corpuscular Hemoglobin 31.5 pg (27.0-33.0); Mean Corpuscular Volume 92.9 fL (80.0-98.0); Monocytes Absolute Auto 1.1 X10*3/uL (0.1-1.2); Monocytes Percent Auto 12.6 % (2-11); Neutrophils Percent Auto 69.6 % (45-73); Platelet Count 307 X10*3/uL (160-400); Red Blood Count 5.21 X10*6/uL (4.60-5.80); Red Cell Distribution Width 13.8 % (11.0-16.0); White Blood Count 8.7 X10*3/uL (4.8-10.8)
[2023-09-25 15:41] LABS: Alanine Aminotransferase 16 U/L (0-40); Albumin Level 4.4 g/dL (3.5-5.0); Alkaline Phosphatase 99 U/L (39-117); Aspartate Amino Transferase 33 U/L (5-37); Bilirubin Direct 0.2 mg/dL (0.0-0.5); Bilirubin Total 0.6 mg/dL (0.0-1.0); Lipase 12 U/L (8-78); Total Protein 8.4 g/dL (6.5-8.0)
== END 2023-09-25 14:12 | disposition home or self-care (01) ==
LOC: HO.XRAY 14:11
PROVIDERS: PCP Internal Medicine; Visit Provider Internal Medicine Gastroenterology
DX: R10.84 Generalized abdominal pain (principal)
CPT/HCPCS: 36415; 74019; 80076; 83690; 85025

== ENCOUNTER 2023-09-28 14:41 | Outpatient (REF) | payer MEDICARE, SELFPAY ==
--- NOTE | 2023-09-28 14:44 | EMG_ITS ---
Chief complaint: Numbness right 3rd to 5th digits, worse on 5th digit, noted thinning of ADM muscle. Reason for referral: Evaluate for ulnar versus median neuropathy Referred by: Ortega MORTON Procedure done: right upper extremity NCS/EMG Precautions and/or limitations: None The limb temperature was monitored continuously and remained between 32-36 degrees C during the performance of the NCS. Ulnar motor NCS was performed with moderate elbow flexion between 70-90 degrees, with across-elbow distance of 10 cm. Nerve Conduction Studies Anti Sensory Summary Table ?Stim Site NR Onset (ms) Norm Onset (ms) Peak (ms) Norm Peak (ms) O-P Amp (?V) Norm O-P Amp Site1 Site2 Delta-0 (ms) Dist (cm) Koby (m/s) Norm Koby (m/s) Right Median Anti Sensory (2nd Digit) Wrist ? 2.9 3.8 <3.6 19.6 >10 Wrist 2nd Digit 2.9 14.0 48 Right Ulnar Anti Sensory (5th Digit) Wrist NR <3.7 >15.0 Wrist 5th Digit 14.0 Motor Summary Table ?Stim Site NR Onset (ms) Norm Onset (ms) O-P Amp (mV) Norm O-P Amp iAmp (mV) Amp (1st) (%) Site1 Site2 Delta-0 (ms) Dist (cm) Koby (m/s) Norm Koby (m/s) Right Median Motor (Abd Poll Brev) Wrist ? 4.2 <3.9 7.7 >4.5 9.6 100.0 Elbow Wrist 4.6 22.0 48 >45 Elbow ? 8.8 6.5 8.2 84.4 Right Ulnar Motor (Abd Dig Minimi) Wrist ? 4.0 <3.0 3.1 >5 3.6 100.0 B Elbow Wrist 3.8 19.5 51 >45 B Elbow ? 7.8 2.3 2.4 74.2 A Elbow B Elbow 3.9 10.0 26 >45 A Elbow ? 11.7 2.3 2.4 74.2 Comparison Summary Table ?Stim Site NR Peak (ms) Norm Peak (ms) P-T Amp (?V) Site1 Site2 Delta-P (ms) Norm Delta (ms) Right Median/Radial Dig I Comparison (Digit 1 - 10cm) Median ? 3.2 <2.9 22.4 Median Radial 0.3 Radial ? 2.9 <2.8 9.9 EMG ?Side Muscle Nerve Root Ins Act Fibs Psw Amp Dur Poly Recrt Int Pat Comment Right 1stDorInt Ulnar C8-T1 Incr 1+ 1+ Nml Nml 0 Nml Complete Right Biceps Musculocut C5-6 Nml Nml Nml Nml Nml 0 Nml Complete Right Triceps Radial C6-7-8 Nml Nml Nml Nml Nml 0 Nml Complete Right Deltoid Axillary C5-6 Nml Nml Nml Nml Nml 0 Nml Complete Right FlexCarpiUln Ulnar C8,T1 Nml Nml Nml Nml Nml 0 Nml Complete Paraspinal EMG ?Side Muscle Nerve Root Ins Act Fibs Psw Comment Right Cervical Upper Rami Nml Nml Nml Right Cervical Mid Rami Nml Nml Nml Right Cervical Lower Rami Nml Nml Nml FINDINGS: Right ulnar motor nerve showed prolonged distal latency, small amplitude and slow conduction velocity across the elbow. Right ulnar sensory nerve showed absent response. Right median sensory nerve showed prolonged peak latency. All other nerves tested were within normal. Concentric needle EMG was performed in selected muscles of the right upper extremity and cervical paraspinals. Study revealed signs of electric abnormalities as shown in the table above. Right FDI showed increased insertional activity, PSWs and fibrillations. IMPRESSION: 1. This is an abnormal study. 2. 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 3. There is electrodiagnostic evidence for right mild median neuropathy at the wrist. 4. There is no electrodiagnostic evidence for brachial plexopathy or cervical radiculopathy. Thank you for your kind referral. Rossy Whitehead MD, ARTURO Board Certified, [place] Board of Physical Medicine and Rehabilitation (ABPMR) Board Certified, [place] Board of Electrodiagnostic Medicine (ABEM) [facility] [id number] [facility]
== END 2023-09-28 14:42 | disposition home or self-care (01) ==
LOC: HO.NEURO 14:41
PROVIDERS: PCP Internal Medicine
DX: R20.0 Anesthesia of skin (principal); R20.2 Paresthesia of skin
CPT/HCPCS: 95886; 95909

== ENCOUNTER → 2023-09-28 14:44 | Outpatient (BNV) | payer MEDICARE, SELFPAY | PROVIDERS: PCP Internal Medicine; Visit Provider Physical Medicine & Rehabilitation | DX: G56.21 Lesion of ulnar nerve, right upper limb (principal); G56.11 Other lesions of median nerve, right upper limb | CPT/HCPCS: 95886; 95909 ==

== ENCOUNTER 2023-10-04 14:42 | Outpatient (AMB) | payer MEDICARE, SELFPAY ==
--- NOTE | 2023-10-04 14:54 | MHC.OFFVIS ---
Vital Signs 10/04/23 14:55 Height 5 ft 8 in Weight 164 lb BMI 24.9 Intake Visit Reasons: OV-Numbness/tingling in 4th &5th fing of rt hand Intake Note: Joel is a 78 year old left hand dominant male who presents today for a evaluation of his right 3rd, 4th and 5th finger numbness. Patient reports ongoing numbness for about 3 to 4 months. He continues to wear a compression wrist sleeve to help with the pain. He is currently taking Tylenol and diclofenac PRN for pain with mild relief. Allergies adhesive tape [ADHESIVE TAPE] Allergy (Intermediate, Verified 10/04/23 14:54) RASH cashew nut [CASHEW NUT] Allergy (Intermediate, Verified 10/04/23 14:54) SWELLING sulfamethoxazole [From Bactrim] Allergy (Intermediate, Verified 10/04/23 14:54) Rash trimethoprim [From Bactrim] Allergy (Intermediate, Verified 10/04/23 14:54) Rash PERM HAIR DYE Allergy (Severe, Uncoded 10/04/23 14:54) severe rash HPI HPI OV-Numbness/tingling in 4th &5th fing of rt hand: Details: Joel is a 78 year old right hand dominant man who presents for a NCS review of his right hand numbness. He complains of constant numbness & tingling in his right middle, ring, and small fingers. He denies any numbness in his thumb or index fingers. He says this has been present for ~4 months now. He complains of some pain in his right wrist, and demonstrates that this is over the dorsal aspect of the right wrist, more so on the radiocarpal joint.. He finds some relief from wearing a compression sleeve on his wrist, and using Diclofenac. He would like to discuss a steroid injection today for his wrist. 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 He says he is supposed to go play a concert tonight following this appointment. He is concerned that he cannot feel what he is doing due to his numbness. [facility] Medical History (Updated 10/04/23 @ 15:18 by Kalin Coughlin) History of recurrent UTIs Incomplete bladder emptying BPH loc w urin obs/LUTS ADD (attention deficit disorder) Enlarged prostate Hyperkalemia Tardive dyskinesia Hard of hearing Hypothyroid Depression Polycythemia Osteoarthritis HTN (hypertension) Asthma Testicular cancer Surgical History Hip joint replacement status History of total left hip arthroplasty Hx of unilateral orchiectomy Hx of excision of mass H/O colonoscopy History of cholecystectomy History of back surgery History of right knee surgery History of left knee surgery History of intestinal surgery Family History Father Clogged artery (heart) Mother Cardiac disease Social History Household Members: Spouse Housing: House Are you a primary critical care nurse to a significant other at home: No Do you presently have visiting nurse or other home services: No Alcohol intake: current Alcohol intake frequency: a few times a week Alcohol type: beer Patient Tobacco Use Status: Never used Tobacco Substance Use Type: Marijuana Advance Directives Date on File: 02/03/23 service: No Review of Systems Const All systems reviewed & are unremarkable except as noted in HPI and below Physical Exam Vital Signs: BMI result Body Mass Index 24.9 Const General: cooperative, healthy appearing and no acute distress Orientation/consciousness: patient oriented x3 HEENT Head: Yes normocephalic and Yes atraumatic Eyes EOM: EOMs intact bilaterally Resp Effort & Inspection: normal respiratory effort and able to speak in complete sentences Cardio Jugular venous distension: no JVD Skin General skin exam: turgor normal Rashes: no rashes Neuro General: patient oriented x3 Extrem Other: Evaluation of Right Upper Extremity: The patient is alert, oriented, and in no acute distress Neuro: Dense numbness in the ulnar nerve distribution & middle finger. Normal sensation in the thumb & index fingers today in clinic No thenar wasting possibly some early right-sided intrinsic wasting seen in the hypothenar muscle belly. Good APB muscle belly firing and good finger cross Vascular: Cap refill brisk ROM: He can make a fist and extend all his digits No locking or catching ~45 degrees wrist extension ~30 degrees wrist flexion Good prono-supination Skin: No lacerations or abrasions. General: No Ecchymosis. No Erythema or evidence of infection. No tenderness over the 1st dorsal compartment Negative Mona test on the right Tender over the dorsal aspect of the wrist joint, more so over the radiocarpal joint Mild tenderness over the basal joint DRUJ is non-tender & stable on exam Nerve Conduction Study: IMPRESSION: 1. This is an abnormal study. 2. 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 3. There is electrodiagnostic evidence for right mild median neuropathy at the wrist. 4. There is no electrodiagnostic evidence for brachial plexopathy or cervical radiculopathy. Rossy Whitehead MD, ARTURO 09/28/23 Radiographs: 3 views of the right wrist from 09/06/23 were reviewed by me today in clinic. They show no fractures or dislocations. There is perhaps some mild widening in the scapholunate interval, along with near complete loss of the midcarpal joint between the lunate and the capitate. There is also some evidence of radio scaphoid arthritis, STT arthritis and basal joint arthritis Psych Appearance: grossly normal Affect: normal affect Attitude: cooperative Office Procedures Fracture Care Details: No fracture, injection , and [id number] which was for using the FluoroScan for needle guidance Fracture Billing Code: Fracture Billing Code Assessment & Plan Assessment & Plan (1) Cubital tunnel syndrome on right: Code(s): G56.21 - Lesion of ulnar nerve, right upper limb Category: Medical (2) Carpal tunnel syndrome of right wrist: Code(s): G56.01 - Carpal tunnel syndrome, right upper limb Category: Medical (3) [place] (hard of hearing): Code(s): H91.90 - Unspecified hearing loss, unspecified ear Category: Medical (4) Osteoarthritis of right wrist: Code(s): M19.031 - Primary osteoarthritis, right wrist Category: Medical Plan Assessment & Plan: 1. Right Cubital tunnel syndrome, significant With dense numbness x approximately 4 months, with possibly some early intrinsic wasting 2. Right Carpal tunnel syndrome, mild Dense numbness in the middle finger, normal sensation in the thumb & index fingers I educated him about this condition I discussed operative and non-operative treatment options The patient would like to proceed with surgery The risks and benefits of operative treatment were discussed with the patient and the patient wishes to proceed with surgery. These risks include, but are not limited to risk of damage to blood vessels, nerves, tendons, infection, recurrence, incomplete relief of preoperative symptoms, persistent pain, possible need for further surgery and the risks associated with regional blocks and anesthesia. The plan is to take the patient to the operating room sometime in the next few weeks for the following procedures: 1. Right cubital tunnel release, under general 2. Right carpal tunnel release, under general All of the preoperative paperwork including the consent was reviewed today. 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 He also had lots of concerns about the schedule for possible surgery and then the time off from work he is likely going to need afterwards. Lots of time was taken today to make sure that we addressed his concerns and his questions. All the patient's questions were answered. The patient understands that they will be contacted by our rod tape operator soon to schedule this procedure. He would like to be placed on the cancellation list for a sooner surgery date, if possible. He denies Diabetes, blood thinners, asthma, heart, lung, kidney issues Patient has difficulty hearing 3. Right wrist osteoarthritis I educated him about this condition I discussed treatment options I explained he may have an increase in pain later this evening, and it may be difficult to perform at his concert tonight if he does have an injection today, and he expressed understanding. The patient would like to proceed with a steroid injection Injection #1: The risks and benefits of a steroid injection including but not limited to risk of damage to blood vessels, nerve, tendon, infection, skin bleaching, persistent or worsening pain, and failure to improve symptoms were discussed with the patient and they wish to proceed with the steroid injection. Once consent was obtained the skin over the dorsum of the Right wrist was sterilely prepped. The joint was then injected with a combination of 1 mL of (40 mg/ml} Depo-Medrol and 0.5% plain Marcaine, using the mini C-arm for needle guidance. The patient appears to have tolerated the procedure well and with no complications. He had good early relief before leaving clinic today. He knows that they may not have another steroid injection into this joint for least 4 months. Please note that greater than 55 minutes was spent with this patient going over the history, evaluating the patient and radiographs, formulating possible treatment options, discussing them with the patient, and documenting the visit. Scribed for Margarita Adames MD by Kalin Coughlin, biomedical instrument technician, on 10/04/23 at 3:30 PM, EST. 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
[2023-10-04 14:55] VITALS: BMI 24.9
== END 2023-10-04 16:14 | disposition home or self-care (01) ==
PROVIDERS: PCP Internal Medicine; Visit Provider Orthopaedic Surgery
DX: G56.21 Lesion of ulnar nerve, right upper limb (principal); G56.01 Carpal tunnel syndrome, right upper limb; M19.031 Primary osteoarthritis, right wrist
CPT/HCPCS: 20605; 77002; 99214

== ENCOUNTER 2023-10-04 14:42 | Outpatient (REF) | payer MEDICARE, SELFPAY ==
--- NOTE | ~2023-10-04 | FL_ITS ---
EXAMINATION: XR FLUOROSCOPY WITH IMAGES CLINICAL INFORMATION: Right wrist primary osteoarthritis. COMPARISON: Radiographs right wrist 09/06/2023 TECHNIQUE: Fluoroscopy provided to: Dr. Adames Fluoroscopy time: 12.45 seconds DAP: 8145.8 Gycm2 Images: 1 FINDINGS: Solitary image right wrist shows needle placement within the DRUJ at the level of the scapholunate joint. FL/FL guided needle placement IMPRESSION: Fluoroscopic guidance. Please refer to the full operative report for details. Electronically signed by: Shreyas Muñoz MD 12/01/2023 02:57 PM EDT
== END 2023-10-04 14:43 | disposition home or self-care (01) ==
LOC: HO.HOSX 14:42
PROVIDERS: PCP Internal Medicine; Visit Provider Orthopaedic Surgery
DX: M19.031 Primary osteoarthritis, right wrist (principal); G56.21 Lesion of ulnar nerve, right upper limb; G56.01 Carpal tunnel syndrome, right upper limb; H91.90 Unspecified hearing loss, unspecified ear
CPT/HCPCS: 20605; 77002; 99212; J0665; J1010

== ENCOUNTER 2023-10-11 13:42 | Outpatient (AMB) | payer MEDICARE, SELFPAY ==
[2023-10-11 13:47] VITALS: BMI 24.9
--- NOTE | 2023-10-11 13:47 | MHC.OFFVIS ---
Vital Signs 10/11/23 13:47 Height 5 ft 8 in Weight 164 lb BMI 24.9 Intake Visit Reasons: New prob- RT hip pain, interest in inj Intake Note: Joel a 78 year old male who presents today for an evaluation of right hips pain. Hx of Left MICKEY on 01/31/23. Patient reports constant throbbing pain in his groin area for about 3 months. Finds very little to no relief with diclofenac and Tylenol. He is requesting a cortisone injection. He mentions in his left hip when he stands he feels slipping in his hip, he is s/p left MICKEY on 01/31/23. Allergies adhesive tape [ADHESIVE TAPE] Allergy (Intermediate, Verified 10/11/23 13:56) RASH cashew nut [CASHEW NUT] Allergy (Intermediate, Verified 10/11/23 13:56) SWELLING sulfamethoxazole [From Bactrim] Allergy (Intermediate, Verified 10/11/23 13:56) Rash trimethoprim [From Bactrim] Allergy (Intermediate, Verified 10/11/23 13:56) Rash PERM HAIR DYE Allergy (Severe, Uncoded 10/11/23 13:56) severe rash Medication List - Last Reconciled 10/12/23 by Robe Montoya PA-C acetaminophen 650 mg (2 x 325 mg) PO Q6H PRN 30 days alprazolam 1 mg PO BID amlodipine 5 mg PO DAILY atorvastatin 80 mg PO DAILY cholecalciferol (vitamin D3) 25 mcg PO DAILY dextroamphetamine-amphetamine 20 mg (Adderall) 20 mg PO BID diclofenac sodium 75 mg PO BID PRN docusate sodium 100 mg PO BID 14 days escitalopram oxalate (Lexapro) 20 mg PO DAILY hydromorphone 2 mg PO Q4-6H PRN 7 days levothyroxine 125 mcg PO DAILY melatonin 10 mg PO BEDTIME methenamine hippurate 1 g PO BID multivitamin 1 tab PO DAILY omeprazole 40 mg PO DAILY primidone 50 mg PO BID propranolol ER 120 mg PO Q2D tamsulosin 0.4 mg PO BID testosterone cypionate 200 mg IM Q2W HPI HPI New prob- RT hip pain, interest in inj: Details: 78-year-old male who presents to the office today for an evaluation of right hip pain. He has a history of left MICKEY on 01/31/23. He currently states he has constant throbbing pain in his groin area for about 3 months. His pain is aggravated with bending and he feels his left hip dislocation with standing up. He finds minimal relief with diclofenac and Tylenol. He is interested in having an injection. [facility] Medical History (Updated 10/04/23 @ 15:18 by Kalin Coughlin) History of recurrent UTIs Incomplete bladder emptying BPH loc w urin obs/LUTS ADD (attention deficit disorder) Enlarged prostate Hyperkalemia Tardive dyskinesia Hard of hearing Hypothyroid Depression Polycythemia Osteoarthritis HTN (hypertension) Asthma Testicular cancer Surgical History Hip joint replacement status History of total left hip arthroplasty Hx of unilateral orchiectomy Hx of excision of mass H/O colonoscopy History of cholecystectomy History of back surgery History of right knee surgery History of left knee surgery History of intestinal surgery Family History Father Clogged artery (heart) Mother Cardiac disease Social History Household Members: Spouse Housing: House Are you a primary medical care manager to a significant other at home: No Do you presently have visiting nurse or other home services: No Alcohol intake: current Alcohol intake frequency: a few times a week Alcohol type: beer Patient Tobacco Use Status: Never used Tobacco Substance Use Type: Marijuana Advance Directives Date on File: 02/03/23 service: No Review of Systems Const All systems reviewed & are unremarkable except as noted in HPI and below Physical Exam Vital Signs: BMI result Body Mass Index 24.9 Extrem Other: Right hip: Normal to inspection, ambulates with a slight limp. Has mild discomfort with internal and extension rotation of hip. No significant stiffness. Mild discomfort with hip flexion against resistance. NVI. Assessment & Plan Assessment & Plan (1) Osteoarthritis of right hip: Code(s): M16.11 - Unilateral primary osteoarthritis, right hip Category: Medical Plan I discussed with the patient some options which include injection vs surgical intervention. He is interested in an injection today, however, I explained this is an injection that would need to be performed in the hospital under fluro. He is quite frustrated about this due to the amount of pain he is in. I expalined I can have him see Dr Mckinley tomorrow to discuss injection vs surgery which he is content with. Patient Instructions: Scribed for Robe Montoya PA-C, by Quang Starkey medical service representative, on 10/11/2023 at 1:45 PM EST.? I, Robe Montoya PA-C, have personally reviewed and agree with the information entered by the scribe. Coding Level of Care Code Est Pt Level 3 (93874) Diagnoses Osteoarthritis of right hip M16.11
== END 2023-10-11 14:55 | disposition home or self-care (01) ==
PROVIDERS: PCP Internal Medicine; Visit Provider Physician Assistant
DX: M16.11 Unilateral primary osteoarthritis, right hip (principal)
CPT/HCPCS: 99213

== ENCOUNTER → 2023-10-11 13:42 | Outpatient (BNVA) | payer MEDICARE, SELFPAY | PROVIDERS: PCP Internal Medicine; Visit Provider Physician Assistant | DX: M16.11 Unilateral primary osteoarthritis, right hip (principal) | CPT/HCPCS: 99212 ==

== ENCOUNTER 2023-10-12 11:22 | Outpatient (AMB) | payer MEDICARE, SELFPAY ==
[2023-10-12 11:59] VITALS: BMI 24.9
--- NOTE | 2023-10-12 11:59 | A.OFFVIS_ITS ---
Vital Signs 10/12/23 11:59 Height 5 ft 8 in Weight 164 lb BMI 24.9 Intake Visit Reasons: OV - Discuss Right MICKEY Intake Note: Joel is a 78 year old male who presents today to discuss Right MICKEY Allergies adhesive tape [ADHESIVE TAPE] Allergy (Intermediate, Verified 10/11/23 13:56) RASH cashew nut [CASHEW NUT] Allergy (Intermediate, Verified 10/11/23 13:56) SWELLING sulfamethoxazole [From Bactrim] Allergy (Intermediate, Verified 10/11/23 13:56) Rash trimethoprim [From Bactrim] Allergy (Intermediate, Verified 10/11/23 13:56) Rash PERM HAIR DYE Allergy (Severe, Uncoded 10/11/23 13:56) severe rash HPI HPI OV - Discuss Right MICKEY: Details: Fahad comes in today with worsening right hip pain. He does not know what happened but his right hip has been bothering him more and more. He is in excruciating pain. It has been present now for a few weeks. It has gotten a little better but it still severe. The pain he describes in his right groin [facility] Medical History (Updated 10/04/23 @ 15:18 by Kalin Coughlin) History of recurrent UTIs Incomplete bladder emptying BPH loc w urin obs/LUTS ADD (attention deficit disorder) Enlarged prostate Hyperkalemia Tardive dyskinesia Hard of hearing Hypothyroid Depression Polycythemia Osteoarthritis HTN (hypertension) Asthma Testicular cancer Surgical History Hip joint replacement status History of total left hip arthroplasty Hx of unilateral orchiectomy Hx of excision of mass H/O colonoscopy History of cholecystectomy History of back surgery History of right knee surgery History of left knee surgery History of intestinal surgery Family History Father Clogged artery (heart) Mother Cardiac disease Social History Household Members: Spouse Housing: House Are you a primary clinical manager home care to a significant other at home: No Do you presently have visiting nurse or other home services: No Alcohol intake: current Alcohol intake frequency: a few times a week Alcohol type: beer Patient Tobacco Use Status: Never used Tobacco Substance Use Type: Marijuana Advance Directives Date on File: 02/03/23 service: No Physical Exam Vital Signs: BMI result Body Mass Index 24.9 Extrem Other: Sharply positive impingement test right hip. Antalgic gait right hip Office Procedures Joint Injection/Aspiration Joint Injection/Aspiration Details: Injected 1 mL of Decadron and 3 mL 1% lidocaine and 3 mL of 0.25% Marcaine. Site was prepped using aseptic technique. Patient tolerated the procedure well. Primary Site: other (Right hip joint) Approach Used: anterior Coding - Large joint Procedure code (CPT) selection complete Results Reviewed Results Reviewed: Moderate right hip osteoarthritis Assessment & Plan Assessment & Plan (1) History of total left hip arthroplasty: Code(s): Z96.642 - Presence of left artificial hip joint Category: Surgical Plan: Left hip is doing well. He continues to be active but his right hip has started acting up. (2) Osteoarthritis of right hip: Code(s): M16.11 - Unilateral primary osteoarthritis, right hip Category: Medical Plan: I injected his right hip today. I recommend he engage in his physical therapy activities and continue take NSAIDs. He may follow up in 6 weeks. If the i njection is totally unhelpful he can call me and I can refer him to pain management for a repeat injection. Coding Level of Care Code Est Pt Level 3 (90326) Diagnoses History of total left hip arthroplasty Z96.642 Osteoarthritis of right hip M16.11 CPT Codes Coding - Large joint: 83277 - Large joint ([id number])
== END 2023-10-12 13:00 | disposition home or self-care (01) ==
PROVIDERS: PCP Internal Medicine; Visit Provider Orthopaedic Surgery
DX: M16.11 Unilateral primary osteoarthritis, right hip (principal); Z96.642 Presence of left artificial hip joint
CPT/HCPCS: 20610; 99213

== ENCOUNTER → 2023-10-12 11:22 | Outpatient (BNVA) | payer MEDICARE, SELFPAY | PROVIDERS: PCP Internal Medicine; Visit Provider Orthopaedic Surgery | DX: M16.11 Unilateral primary osteoarthritis, right hip (principal); Z96.642 Presence of left artificial hip joint | CPT/HCPCS: 20610; 99212; J0665; J1100 ==

== ENCOUNTER 2023-10-19 11:21 | Outpatient (AMB) | payer MEDICARE, SELFPAY ==
[2023-10-19 11:22] VITALS: BMI 24.9
--- NOTE | 2023-10-19 11:22 | MHC.OFFVIS ---
Vital Signs 10/19/23 11:22 Height 5 ft 8 in Weight 164 lb BMI 24.9 Intake Visit Reasons: OV-Right hip pain, DOI 09/03/23 Intake Note: Joel is a 78 year old male who presents today for a follow up of his right hip pain. Patient reports that he took a fall on 09/03/23. He has had increased pain since this fall. He was seen in the office on 10/12/23 where he recieved an intra-articular injection. Patient reports that this injection was not helpful and he continues to have pain in the groin. He was referred for an injection to be done with pain management but he feels that the pain may be due to some type of tear and is inquiring about an MRI. Allergies adhesive tape [ADHESIVE TAPE] Allergy (Intermediate, Verified 10/19/23 11:23) RASH cashew nut [CASHEW NUT] Allergy (Intermediate, Verified 10/19/23 11:23) SWELLING sulfamethoxazole [From Bactrim] Allergy (Intermediate, Verified 10/19/23 11:23) Rash trimethoprim [From Bactrim] Allergy (Intermediate, Verified 10/19/23 11:23) Rash PERM HAIR DYE Allergy (Severe, Uncoded 10/11/23 13:56) severe rash HPI HPI OV-Right hip pain, DOI 09/03/23: Details: Joel is a 78 year old male who presents today for a follow up of his right hip pain. Patient reports that he took a fall on 09/03/23. He has had increased pain since this fall. He was seen in the office on 10/12/23 where he received an intra-articular injection. Patient reports that this injection was not helpful and he continues to have pain in the groin. He was referred for an injection to be done with pain management but he feels that the pain may be due to some type of tear and is inquiring about an MRI. Last injection not helpful. [facility] Medical History (Updated 10/04/23 @ 15:18 by Kalin Coughlin) History of recurrent UTIs Incomplete bladder emptying BPH loc w urin obs/LUTS ADD (attention deficit disorder) Enlarged prostate Hyperkalemia Tardive dyskinesia Hard of hearing Hypothyroid Depression Polycythemia Osteoarthritis HTN (hypertension) Asthma Testicular cancer Surgical History Hip joint replacement status History of total left hip arthroplasty Hx of unilateral orchiectomy Hx of excision of mass H/O colonoscopy History of cholecystectomy History of back surgery History of right knee surgery History of left knee surgery History of intestinal surgery Family History Father Clogged artery (heart) Mother Cardiac disease Social History Household Members: Spouse Housing: House Are you a primary director of healthcare systems to a significant other at home: No Do you presently have visiting nurse or other home services: No Alcohol intake: current Alcohol intake frequency: a few times a week Alcohol type: beer Patient Tobacco Use Status: Never used Tobacco Substance Use Type: Marijuana Advance Directives Date on File: 02/03/23 service: No Physical Exam Vital Signs: BMI result Body Mass Index 24.9 Extrem Other: Sharply positive impingement test right hip. Antalgic gait right hip Assessment & Plan Assessment & Plan (1) Osteoarthritis of right hip: Code(s): M16.11 - Unilateral primary osteoarthritis, right hip Category: Medical Plan: Severe pain with hip OA. I precribed a Medrol does curtis as he is not sleeping. I do think he would benefit from MICKEY. MRI ordered given acute presentation. Will contact regarding MICKEY scheduling and clearance. Orders: Orders MR hip RT wo con Today M16.11 - Unilateral primary osteoarthritis, right hip Medications: New methylprednisolone (Medrol (Curtis)) PO PER PKG DIR for 6 days 21 ea 0RF hip arthritis Coding Level of Care Code Est Pt Level 4 (70182) Diagnoses Osteoarthritis of right hip M16.11
== END 2023-10-19 11:54 | disposition home or self-care (01) ==
PROVIDERS: PCP Internal Medicine; Visit Provider Orthopaedic Surgery
DX: M16.11 Unilateral primary osteoarthritis, right hip (principal)
CPT/HCPCS: 99214

== ENCOUNTER → 2023-10-19 11:21 | Outpatient (BNVA) | payer MEDICARE, SELFPAY | PROVIDERS: PCP Internal Medicine; Visit Provider Orthopaedic Surgery | DX: M16.11 Unilateral primary osteoarthritis, right hip (principal) | CPT/HCPCS: 20610; 99212; J2795; J3301 ==

== ENCOUNTER 2023-10-19 14:00 | Outpatient (AMB) | payer MEDICARE, SELFPAY ==
--- NOTE | 2023-10-19 14:03 | A.OFFVIS_ITS ---
Intake Visit Reasons: right hip injection Allergies adhesive tape [ADHESIVE TAPE] Allergy (Intermediate, Verified 10/19/23 14:09) RASH cashew nut [CASHEW NUT] Allergy (Intermediate, Verified 10/19/23 14:09) SWELLING sulfamethoxazole [From Bactrim] Allergy (Intermediate, Verified 10/19/23 14:09) Rash trimethoprim [From Bactrim] Allergy (Intermediate, Verified 10/19/23 14:09) Rash PERM HAIR DYE Allergy (Severe, Uncoded 10/11/23 13:56) severe rash HPI HPI right hip injection: Details: Patient presents for scheduled procedure. Denies any recent cough, cold, infection, fever or other significant changes in medical history since last office visit. [facility] Medical History (Updated 10/04/23 @ 15:18 by Kalin Coughlin) History of recurrent UTIs Incomplete bladder emptying BPH loc w urin obs/LUTS ADD (attention deficit disorder) Enlarged prostate Hyperkalemia Tardive dyskinesia Hard of hearing Hypothyroid Depression Polycythemia Osteoarthritis HTN (hypertension) Asthma Testicular cancer Surgical History Hip joint replacement status History of total left hip arthroplasty Hx of unilateral orchiectomy Hx of excision of mass H/O colonoscopy History of cholecystectomy History of back surgery History of right knee surgery History of left knee surgery History of intestinal surgery Family History Father Clogged artery (heart) Mother Cardiac disease Social History Household Members: Spouse Housing: House Are you a primary healthcare customer service to a significant other at home: No Do you presently have visiting nurse or other home services: No Alcohol intake: current Alcohol intake frequency: a few times a week Alcohol type: beer Patient Tobacco Use Status: Never used Tobacco Substance Use Type: Marijuana Advance Directives Date on File: 02/03/23 service: No Office Procedures Joint Injection/Aspiration Joint Injection/Aspiration Primary Site: other (Right hip, intra-articular) Prep: site was prepped using sterile technique Injected: 40 mg of, Kenalog and with 3 mL of (0.25% ropivacaine) Approach Used: anterior (Under ultrasound guidance) Procedure: The patient tolerated the procedure well Coding Details: An image of the ultrasound guided injection was saved to the patient's permanent record. 39661 - Large joint Procedure code (CPT) selection complete Assessment & Plan Assessment & Plan (1) Osteoarthritis of right hip: Code(s): M16.11 - Unilateral primary osteoarthritis, right hip Category: Medical Plan Patient is status post right hip intra-articular ultrasound-guided injection. Patient tolerated procedure well and was discharged home in stable condition with discharge instructions. All questions were answered. We will follow-up via telephone or in clinic to assess response to therapy. A follow-up appointment was made during today's visit. Coding Level of Care Code Procedure Only Diagnoses Osteoarthritis of right hip M16.11 CPT Codes Coding - 62031 Large joint: 12792 - Large joint ([id number])
== END 2023-10-19 14:23 | disposition home or self-care (01) ==
LOC: HO.PMCPRC 14:00
PROVIDERS: PCP Internal Medicine; Visit Provider Internal Medicine
DX: M16.11 Unilateral primary osteoarthritis, right hip (principal)
CPT/HCPCS: 20610

== ENCOUNTER → 2023-11-02 08:59 | Outpatient (BNVA) | payer MEDICARE, SELFPAY | PROVIDERS: PCP Internal Medicine; Visit Provider Orthopaedic Surgery ==

== ENCOUNTER 2023-11-02 13:31 | Outpatient (AMB) | payer MEDICARE, SELFPAY ==
--- NOTE | 2023-11-02 13:31 | MHC.OFFVIS ---
Intake Visit Reasons: TELE - Left Hip Pain - Plan MICKEY Intake Note: Joel is a 78 year old male who presents today for a telehealth visit with Dr. Mckinley to discuss concerns. Allergies adhesive tape [ADHESIVE TAPE] Allergy (Intermediate, Verified 11/02/23 13:39) RASH cashew nut [CASHEW NUT] Allergy (Intermediate, Verified 11/02/23 13:39) SWELLING sulfamethoxazole [From Bactrim] Allergy (Intermediate, Verified 11/02/23 13:39) Rash trimethoprim [From Bactrim] Allergy (Intermediate, Verified 11/02/23 13:39) Rash PERM HAIR DYE Allergy (Severe, Uncoded 11/02/23 13:39) severe rash HPI HPI TELE - Left Hip Pain - Plan MICKEY: Details: Joel felt better after hip injection but it only lasted for a week. During that week however he felt almost complete symptom resolution but the pain, unfortunately, has returned. [facility] Medical History History of recurrent UTIs Incomplete bladder emptying BPH loc w urin obs/LUTS ADD (attention deficit disorder) Enlarged prostate Hyperkalemia Tardive dyskinesia Hard of hearing Hypothyroid Depression Polycythemia Osteoarthritis HTN (hypertension) Asthma Testicular cancer Surgical History Hip joint replacement status History of total left hip arthroplasty Hx of unilateral orchiectomy Hx of excision of mass H/O colonoscopy History of cholecystectomy History of back surgery History of right knee surgery History of left knee surgery History of intestinal surgery Family History Father Clogged artery (heart) Mother Cardiac disease Social History Household Members: Spouse Housing: House Are you a primary pediatric acute care unit nurse to a significant other at home: No Do you presently have visiting nurse or other home services: No Alcohol intake: current Alcohol intake frequency: a few times a week Alcohol type: beer Patient Tobacco Use Status: Never used Tobacco Substance Use Type: Marijuana Advance Directives Date on File: 02/03/23 service: No Assessment & Plan Assessment & Plan (1) Osteoarthritis of right hip: Code(s): M16.11 - Unilateral primary osteoarthritis, right hip Category: Medical Plan: I had a long discussion with Joel regarding his hip. He is scheduling hip replacement he does have severe disease. He had benefit from a steroid injection but unfortunately that will restrict our ability to get him into surgery any time in the next 3 months. He has a previous option for a steroid Dosepak from me. I think it is reasonable if he takes that. I will see him back in 3 months. Coding Level of Care Code Tele Est Pt Level 4 (42342) Diagnoses Osteoarthritis of right hip M16.11
== END 2023-11-02 13:40 | disposition home or self-care (01) ==
PROVIDERS: PCP Internal Medicine; Visit Provider Orthopaedic Surgery
DX: M16.11 Unilateral primary osteoarthritis, right hip (principal)
CPT/HCPCS: 99442

== ENCOUNTER 2023-11-24 17:44 | Outpatient (REF) | payer MEDICARE, SELFPAY ==
--- NOTE | ~2023-11-24 | MR_ITS ---
EXAMINATION: MR HIP WITHOUT CONTRAST, RIGHT CLINICAL INFORMATION: Worsening right hip pain. Osteoarthritis. COMPARISON: Most recent pelvic radiograph dated 03/16/2023. TECHNIQUE: MRI of the right hip was obtained using routine sequences on a high-field strength magnet. FINDINGS: ACETABULAR LABRUM: Attenuation and heterogeneity of the anterosuperior and lateral labrum, consistent with degenerative tearing. There is linear fluid signal extending through the base of the posterior labrum, consistent with a nondisplaced undersurface tear. ARTICULAR CARTILAGE/BONE: Diffuse articular cartilage full-thickness loss with subchondral cystic change and marginal osteophytes. At the anterosuperior aspect of the femoral head, there is focal cortical depression with underlying low-T1/low-T2 signal and prominent marrow edema extending into the femoral head and neck. Findings are consistent with a minimally displaced subchondral fracture. This area measures up to 3.9 x 3.0 cm (AP x ML). No concerning lytic or blastic osseous lesion. Left hip arthroplasty without evidence of complication. MUSCLES/TENDONS: Mild gluteus medius and gluteus minimus tendinosis. JOINT FLUID/BURSA: Small right hip joint effusion. Mild synovitis. INTRAPELVIC STRUCTURES: Unremarkable. MR/MR hip RT wo con IMPRESSION: 1. Severe right hip osteoarthritis with a minimally displaced subchondral fracture at the anterosuperior aspect of the femoral head measuring up to 3.9 x 3.0 cm (AP x ML). Prominent marrow edema extending into the femoral head and neck. 2. Small right hip joint effusion with mild synovitis. 3. Nondisplaced undersurface tear of the posterior labrum. Degenerative tearing of the anterosuperior and lateral labrum. 4. Mild gluteus medius and gluteus minimus tendinosis. Electronically signed by: Pool Urrutia MD 11/28/2023 09:42 AM EDT
== END 2023-11-24 17:45 | disposition home or self-care (01) ==
LOC: HO.MRI 17:44
PROVIDERS: PCP Internal Medicine; Visit Provider Orthopaedic Surgery
DX: M16.11 Unilateral primary osteoarthritis, right hip (principal)
CPT/HCPCS: 73721

== ENCOUNTER 2023-12-04 08:35 | Outpatient (AMB) | payer MEDICARE, SELFPAY ==
--- NOTE | 2023-12-04 08:35 | MHC.OFFVIS ---
Intake Visit Reasons: Tel- right hip MRI Intake Note: Joel is a 78 year old male who presents today VIA telephone for an MRI review of his right hip. Patient would like to know his treatment options MR/MR hip RT wo con IMPRESSION: 1. Severe right hip osteoarthritis with a minimally displaced subchondral fracture at the anterosuperior aspect of the femoral head measuring up to 3.9 x 3.0 cm (AP x ML). Prominent marrow edema extending into the femoral head and neck. 2. Small right hip joint effusion with mild synovitis. 3. Nondisplaced undersurface tear of the posterior labrum. Degenerative tearing of the anterosuperior and lateral labrum. 4. Mild gluteus medius and gluteus minimus tendinosis. Allergies adhesive tape [ADHESIVE TAPE] Allergy (Intermediate, Verified 11/02/23 13:39) RASH cashew nut [CASHEW NUT] Allergy (Intermediate, Verified 11/02/23 13:39) SWELLING sulfamethoxazole [From Bactrim] Allergy (Intermediate, Verified 11/02/23 13:39) Rash trimethoprim [From Bactrim] Allergy (Intermediate, Verified 11/02/23 13:39) Rash PERM HAIR DYE Allergy (Severe, Uncoded 11/02/23 13:39) severe rash HPI HPI Tel- right hip MRI: Details: Joel is a 78 year old male who presents today VIA telephone for an MRI review of his right hip. Patient would like to know his treatment options. We have discussed this in the past and have tentatively discussed hip replacement. He continues to have severe pain. He is using a walker to ambulate. COUNT INCLUDES THE [facility] Medical History History of recurrent UTIs Incomplete bladder emptying BPH loc w urin obs/LUTS ADD (attention deficit disorder) Enlarged prostate Hyperkalemia Tardive dyskinesia Hard of hearing Hypothyroid Depression Polycythemia Osteoarthritis HTN (hypertension) Asthma Testicular cancer Surgical History Hip joint replacement status History of total left hip arthroplasty Hx of unilateral orchiectomy Hx of excision of mass H/O colonoscopy History of cholecystectomy History of back surgery History of right knee surgery History of left knee surgery History of intestinal surgery Family History Father Clogged artery (heart) Mother Cardiac disease Social History Household Members: Spouse Housing: House Are you a primary assisted living care manager to a significant other at home: No Do you presently have visiting nurse or other home services: No Alcohol intake: current Alcohol intake frequency: a few times a week Alcohol type: beer Patient Tobacco Use Status: Never used Tobacco Substance Use Type: Marijuana Advance Directives Date on File: 02/03/23 service: No Telehealth Telehealth Telehealth Platform: Telephone Location of provider rendering services: practice address Location of patient: address on file Patient Identification confirmed using: Name, : Yes Telehealth method: voice only Patient verbally consented to treatment: Yes Patient verbally consented to billing insurance company: Yes Patient informed of any privacy concerns related to visit: Yes Minutes spent on Phone/Video with Pt.: 15 Results Reviewed Results Reviewed: I personally reviewed the MR images. MR/MR hip RT wo con IMPRESSION: 1. Severe right hip osteoarthritis with a minimally displaced subchondral fracture at the anterosuperior aspect of the femoral head measuring up to 3.9 x 3.0 cm (AP x ML). Prominent marrow edema extending into the femoral head and neck. 2. Small right hip joint effusion with mild synovitis. 3. Nondisplaced undersurface tear of the posterior labrum. Degenerative tearing of the anterosuperior and lateral labrum. 4. Mild gluteus medius and gluteus minimus tendinosis. No x-rays Assessment & Plan Assessment & Plan (1) Osteoarthritis of right hip: Code(s): M16.11 - Unilateral primary osteoarthritis, right hip Category: Medical Plan: This is a 78-year-old gentleman with severe osteoarthritis of the right hip. This has confirmed with MRI. I discussed this with the patient and I continue to recommend a right hip replacement. The MRI seems to have convinced him that this is the appropriate next step. I discussed the risks of infection as well as the postoperative course and some of the differences between the anterior and the posterior approach. He had a successful contralateral hip replacement with me. I do not do the anterior approach and he is okay with that. I will have you and a call him and begin the scheduling process. Coding Level of Care Code Tele New Pt Level 4 (59060) Diagnoses Osteoarthritis of right hip M16.11
== END 2023-12-04 08:54 | disposition home or self-care (01) ==
LOC: HO.HOS 08:35
PROVIDERS: PCP Internal Medicine; Visit Provider Orthopaedic Surgery
DX: M16.11 Unilateral primary osteoarthritis, right hip (principal)
CPT/HCPCS: 99442

== ENCOUNTER → 2023-12-04 08:35 | Outpatient (BNVA) | payer MEDICARE, SELFPAY | PROVIDERS: PCP Internal Medicine; Visit Provider Orthopaedic Surgery ==

== ENCOUNTER 2023-12-12 09:40 | Outpatient (REF) | payer MEDICARE, SELFPAY ==
[2023-12-12 10:08] LABS: MANUAL DIFF FLAG NO
[2023-12-12 10:54] LABS: Basophils Percent Auto 0.5 % (0-2); Eosinophils Absolute Auto 0.2 X10*3/uL (0.0-0.4); Eosinophils Percent Auto 2.5 % (0-4); Hematocrit 46.9 % (42.0-52.0); Hemoglobin 15.7 g/dl (14.0-18.0); Imm Gran Abs Auto 0.03 X10*3/uL (0.00-0.03); Imm Gran Pct Auto 0.4 % (0.0-0.4); Lymphocytes Absolute Auto 1.1 X10*3/uL (1.2-4.9); Mean Corpuscular HGB Conc 33.5 g/dl (31.0-36.0); Mean Corpuscular Hemoglobin 31.6 pg (27.0-33.0); Mean Corpuscular Volume 94.4 fL (80.0-98.0); Mean Platelet Volume 10.6 fL (9.4-12.4); Monocytes Absolute Auto 0.9 X10*3/uL (0.1-1.2); Monocytes Percent Auto 12.1 % (2-11); Neutrophils Absolute Auto 5.3 x10*3/uL (2.0-8.3); Neutrophils Percent Auto 70.5 % (45-73); Platelet Count 270 X10*3/uL (160-400); Red Blood Count 4.97 X10*6/uL (4.60-5.80); Red Cell Distribution Width 14.1 % (11.0-16.0); White Blood Count 7.5 X10*3/uL (4.8-10.8)
[2023-12-12 11:35] LABS: Alanine Aminotransferase 14 U/L (0-40); Albumin Level 4.1 g/dL (3.5-5.0); Alkaline Phosphatase 95 U/L (39-117); Anion Gap 13 (12-20); Aspartate Amino Transferase 29 U/L (5-37); Bilirubin Direct 0.2 mg/dL (0.0-0.5); Bilirubin Total 0.6 mg/dL (0.0-1.0); Blood Urea Nitrogen 20 mg/dL (9-16); Calcium 9.9 mg/dL (8.4-10.2); Carbon Dioxide 28 mmol/L (22-29); Chloride 103 mmol/L (96-108); Cholesterol 160 mg/dL (<200); Estimated Glomerular Filt Rate > 60; Glucose Fasting 102 mg/dL (60-99); HDL Cholesterol 47 mg/dL (>40); LDL Cholesterol Calculated 84 mg/dL (<100); Potassium 4.3 mmol/L (3.3-5.1); Sodium 140 mmol/L (135-145); Total Protein 7.5 g/dL (6.5-8.0); Triglycerides 145 mg/dL (<150)
[2023-12-12 11:44] LABS: TSH reflex Free T4 1.04 uIU/mL (0.32-4.0)
== END 2023-12-12 09:41 | disposition home or self-care (01) ==
LOC: HO.LAB 09:40
PROVIDERS: PCP Internal Medicine; Visit Provider Internal Medicine
DX: F41.1 Generalized anxiety disorder (principal); F90.0 Attention-deficit hyperactivity disorder, predominantly inattentive type; E78.00 Pure hypercholesterolemia, unspecified; R25.1 Tremor, unspecified; N40.1 Benign prostatic hyperplasia with lower urinary tract symptoms; G56.21 Lesion of ulnar nerve, right upper limb; M16.12 Unilateral primary osteoarthritis, left hip
CPT/HCPCS: 36415; 80048; 80061; 80076; 84443; 85025

== ENCOUNTER → 2023-12-15 08:57 | Outpatient (REF) | payer MEDICARE, SELFPAY ==
--- NOTE | 2023-12-15 10:04 | ECG_ITS ---
Test Reason : Hypercholesterolemia Blood Pressure : / mmHG Vent. Rate : 057 BPM Atrial Rate : 057 BPM P-R Int : 170 ms QRS Dur : 076 ms QT Int : 420 ms P-R-T Axes : 066 013 065 degrees QTc Int : 408 ms Sinus bradycardia Possible Left atrial enlargement Borderline ECG When compared with ECG of 16-JAN-2023 10:30, No significant change was found Referred By: Mike Jolley Electronically Signed By:CORBIN STEINER
== END ==
LOC: HO.CARD 08:57
PROVIDERS: Absent Provider Internal Medicine; PCP Internal Medicine
DX: E78.00 Pure hypercholesterolemia, unspecified (principal)
CPT/HCPCS: 93005

== ENCOUNTER → 2023-12-15 10:04 | Outpatient (BNV) | payer MEDICARE, SELFPAY | PROVIDERS: Absent Provider Internal Medicine; PCP Internal Medicine; Visit Provider Internal Medicine | DX: R00.1 Bradycardia, unspecified (principal); R94.31 Abnormal electrocardiogram [ECG] [EKG]; E78.00 Pure hypercholesterolemia, unspecified | CPT/HCPCS: 93010 ==

== ENCOUNTER 2023-12-27 11:15 | Outpatient (AMB) | payer MEDICARE, SELFPAY ==
--- NOTE | 2023-12-27 11:38 | MHC.OFFVIS ---
Vital Signs 12/27/23 11:39 Height 5 ft 8 in Weight 162 lb BMI 24.6 BP 140/68 H Blood Pressure Location Lt brachial Position Sitting Pulse 78 Pulse Source Pulse Oximeter Intake Visit Reasons: 4mth/ R MICKEY w/Dr. Mckinley 01/01 Allergies adhesive tape [ADHESIVE TAPE] Allergy (Intermediate, Verified 12/15/23 09:17) RASH cashew nut [CASHEW NUT] Allergy (Intermediate, Verified 12/15/23 09:17) SWELLING sulfamethoxazole [From Bactrim] Allergy (Intermediate, Verified 12/15/23 09:17) Rash trimethoprim [From Bactrim] Allergy (Intermediate, Verified 12/15/23 09:17) Rash PERM HAIR DYE Allergy (Severe, Uncoded 12/15/23 09:17) severe rash Medication List - Last Reconciled 12/27/23 by Lakhwinder De Souza MD acetaminophen 650 mg PO Q6H amlodipine 5 mg PO QAM atorvastatin 80 mg PO BEDTIME cholecalciferol (vitamin D3) 25 mcg PO QAM escitalopram oxalate (Lexapro) 20 mg PO QAM levothyroxine 125 mcg PO QAM methenamine hippurate 1 g PO BID multivitamin 1 tab PO QAM omeprazole 40 mg PO QAM primidone 50 mg PO BID propranolol ER 120 mg PO Q2D tamsulosin 0.4 mg PO BID testosterone cypionate 200 mg IM Q2W HPI Comments Details: 78-year-old gentleman with dyspnea on exertion who is here for follow-up. He was taken for cardiac catheterization for his progressive dyspnea which did not show any significant coronary disease. His filling pressures at rest were normal. His blood pressure was elevated and he was started on amlodipine. His BP is better. He was diagnosed with exercise induced asthma. He underwent back surgery and is recovering from that. He tried to do some exercise but had some dyspnea and fatigue. I have explained to him that this is quite normal after surgery. 08/21/23: he is here for f/u. He underwent hip surgery in 02/15/2023. He is saying that he has recovered from that was breathing has been bad. He previously was diagnosed with exercise-induced asthma and was on some inhalers which he has not used for few months. He is getting shortness of breath with activities. No other significant complaints. 12/27/2023: He is here for follow-up. He wants to undergo right hip surgery. He is in a lot of pain. Blood pressure is elevated. He is on amlodipine 5 mg and propranolol every other day. He is here for perioperative cardiovascular risk assessment. [facility], [facility] Medical History (Updated 12/27/23 @ 12:11 by Lakhwinder De Souza MD) History of recurrent UTIs Incomplete bladder emptying BPH loc w urin obs/LUTS ADD (attention deficit disorder) Enlarged prostate Hyperkalemia Tardive dyskinesia Hard of hearing Hypothyroid Depression Polycythemia Osteoarthritis HTN (hypertension) Asthma Testicular cancer Surgical History (Updated 12/08/23 @ 08:23 by Savita Parry RN) History of total left hip arthroplasty Hx of unilateral orchiectomy Hx of excision of mass H/O colonoscopy History of cholecystectomy History of back surgery History of right knee surgery History of left knee surgery History of intestinal surgery Family History Father Clogged artery (heart) Mother Cardiac disease Social History Household Members: Spouse Housing: House Are you a primary cattle care worker to a significant other at home: No Do you presently have visiting nurse or other home services: No Alcohol intake: current Alcohol intake frequency: a few times a week Alcohol type: beer Patient Tobacco Use Status: Never used Tobacco Substance Use Type: Marijuana Advance Directives Date on File: 02/03/23 service: No Review of Systems Const Denies weakness ENT Denies dizziness Card Denies chest pain, Denies chest pain with activity, Denies syncope, Denies rapid heart rate, Denies pedal edema, Denies edema, Denies leg edema, Denies lightheadedness, Denies palpitations, Denies dyspnea, Denies dyspnea on exertion and Denies orthopnea Resp Denies cough, Denies dyspnea and Denies dyspnea on exertion GI Denies hematochezia and Denies change in stool character Musc Denies abnormal gait, Denies muscle cramps, Denies muscle weakness, Denies numbness, Denies radiating pain into limb and Denies tingling Neuro Denies abnormal gait, Denies dizziness, Denies syncope, Denies numbness, Denies tingling and Denies weakness Endo Denies palpitations Physical Exam Vital Signs: Last Vital Signs Pulse 78 12/27/23 11:39 BP 140/68 H 12/27/23 11:39 BMI result Body Mass Index 24.6 GENERAL APPEARANCE: in no acute distress. NECK/THYROID: no carotid bruit, no jugular venous distention. SKIN: no suspicious lesions, warm and dry. HEART: no murmurs, regular rate and rhythm, S1, S2 normal. LUNGS: clear to auscultation bilaterally. ABDOMEN: normal, bowel sounds present, soft, nontender, nondistended. EXTREMITIES: no clubbing, cyanosis, or edema. PERIPHERAL PULSES: equal. NEUROLOGIC: nonfocal, alert and oriented. Assessment & Plan Assessment & Plan (1) Hypertension: Code(s): I10 - Essential (primary) hypertension Category: Medical Qualifiers: Hypertension type: essential hypertension Qualified Code(s): I10 - Essential (primary) hypertension (2) Preop cardiovascular exam: Code(s): Z01.810 - Encounter for preprocedural cardiovascular examination Category: Medical Plan Pleasant 78 year gentleman here for follow-up. He has background history of dyspnea on exertion due to asthma. Blood pressure is mildly elevated but he is in pain and anxious to undergo surgery. He is going to operating room next week. His risk is low to intermediate for perioperative cardiovascular complications. I think he can proceed with surgery. He is on propranolol every other day and this should be continued as before. Postop if his blood pressure continues to be elevated then amlodipine can be increased to 5 mg twice a day. He is currently taking it once a day. We will see him back in 3 months. Thank you for allowing me to participate in the care of your patient. Please feel free to contact me if you have any questions. Coding Level of Care Code Est Pt Level 4 (36984) Diagnoses Essential hypertension I10 Hypertension type: essential hypertension Preop cardiovascular exam Z01.810
[2023-12-27 11:39] VITALS: BP 140/68; PULSE 78; BMI 24.6
== END 2023-12-27 11:58 | disposition home or self-care (01) ==
LOC: HO.HCS 11:16
PROVIDERS: PCP Internal Medicine; Visit Provider Internal Medicine Cardiovascular Disease
DX: I10 Essential (primary) hypertension (principal); Z01.810 Encounter for preprocedural cardiovascular examination
CPT/HCPCS: 99214

== ENCOUNTER → 2023-12-27 11:15 | Outpatient (BNVA) | payer MEDICARE, SELFPAY | PROVIDERS: PCP Internal Medicine; Visit Provider Internal Medicine Cardiovascular Disease | DX: Z01.810 Encounter for preprocedural cardiovascular examination (principal); I10 Essential (primary) hypertension | CPT/HCPCS: 99212 ==

== ENCOUNTER 2023-12-28 08:27 | Outpatient (REF) | payer MEDICARE, SELFPAY | END 2023-12-28 08:28 | disposition home or self-care (01) | LOC: HO.HOSX 08:27 | PROVIDERS: Visit Provider Physician Assistant | DX: M25.551 Pain in right hip (principal); M16.11 Unilateral primary osteoarthritis, right hip | CPT/HCPCS: 73502; 99212 ==

== ENCOUNTER 2023-12-28 08:57 | Outpatient (AMB) | payer MEDICARE, SELFPAY ==
--- NOTE | 2023-12-28 09:22 | A.OFFVIS_ITS ---
Vital Signs 12/28/23 09:23 Height 5 ft 8 in Weight 162 lb BMI 24.6 Intake Visit Reasons: Pre-Op: R MICKEY w/NE 01/02/24 Intake Note: Joel a 78 year old male who presents today for a preoperative right MICKEY, DOS 01/02/24. Pain management agreement reviewed and signed. Allergies adhesive tape [ADHESIVE TAPE] Allergy (Intermediate, Verified 12/28/23 09:28) RASH cashew nut [CASHEW NUT] Allergy (Intermediate, Verified 12/28/23 09:28) SWELLING sulfamethoxazole [From Bactrim] Allergy (Intermediate, Verified 12/28/23 09:28) Rash trimethoprim [From Bactrim] Allergy (Intermediate, Verified 12/28/23 09:28) Rash PERM HAIR DYE Allergy (Severe, Uncoded 12/28/23 09:28) severe rash HPI Comments Details: Mr Stout presents to the office today for preop visit. He is scheduled for right total hip arthroplasty with Dr. Mckinley. He continues to have ongoing pain and difficulty with ambulation in the right hip, which is affecting his quality of life; therefore, he has elected to move forward with surgery. [facility] Medical History (Updated 12/27/23 @ 12:11 by Lakhwinder De Souza MD) History of recurrent UTIs Incomplete bladder emptying BPH loc w urin obs/LUTS ADD (attention deficit disorder) Enlarged prostate Hyperkalemia Tardive dyskinesia Hard of hearing Hypothyroid Depression Polycythemia Osteoarthritis HTN (hypertension) Asthma Testicular cancer Surgical History History of total left hip arthroplasty Hx of unilateral orchiectomy Hx of excision of mass H/O colonoscopy History of cholecystectomy History of back surgery History of right knee surgery History of left knee surgery History of intestinal surgery Family History Father Clogged artery (heart) Mother Cardiac disease Social History Household Members: Spouse Housing: House Are you a primary body care manager to a significant other at home: No Do you presently have visiting nurse or other home services: No Alcohol intake: current Alcohol intake frequency: a few times a week Alcohol type: beer Patient Tobacco Use Status: Never used Tobacco Substance Use Type: Marijuana Advance Directives Date on File: 02/03/23 service: No Review of Systems Const All systems reviewed & are unremarkable except as noted in HPI and below Physical Exam Vital Signs: BMI result Body Mass Index 24.6 Const General: cooperative and no acute distress Orientation/consciousness: patient oriented x3 HEENT Head: Yes normal to inspection, Yes normocephalic and Yes atraumatic Eyes General: appearance normal, both eyes and all related structures Neck Neck: Yes normal visual inspection and Yes no lymphadenopathy Resp Effort & Inspection: normal respiratory effort and able to speak in complete sentences Cardio Rate: regular rate Peripheral pulses: Peripheral pulses 2+ throughout GI Inspection: Yes normal to inspection Palpation (GI): Soft to palpation Skin General skin exam: no rashes or lesions noted Neuro General: patient oriented x3 Extrem Other: Right hip: Normal to inspection, ambulates with a slight limp. Has mild discomfort with internal and extension rotation of hip. No significant stiffness. Mild discomfort with hip flexion against resistance. NVI. Psych Appearance: grossly normal Mental Status: mental status grossly normal Results Reviewed Results Reviewed: Xrays were obtained in the office today and personally reviewed by me of the right knee show left hip prosthesis , right hip oa Assessment & Plan Assessment & Plan (1) Osteoarthritis of right hip: Code(s): M16.11 - Unilateral primary osteoarthritis, right hip Category: Medical Plan: I discussed in detail the procedure and what to expect pre and post operatively. We discussed the risks, benefits and alternatives to the surgery as well as the rehabilitation course. The risks; which include, but are not limited to infection, bleeding, nerve injury, ongoing pain, swelling, and stiffness, perioperative risk of injury to bones and soft tissues, and blood clots. I?ve answered all questions and with their understanding they have consented to move forward with Right total hip arthroplasty with Dr. Mckinley Prior admission he was dc with Dilaudid 2mg tabs, ASA 325mg tabs, Tylenol and celebrex. Left MICKEY Implants: Ricky Trident2 56 with 2 6.5 screws and lipped liner [place] Accolade2 #[id number] with +0 36 ceramic Orders: Orders XR hip RT min 2V Today M25.551 - Pain in right hip Type and Screen Today Z01.818 - Encounter for other preprocedural examination Patient Instructions: Scribed for Robe Montoya PA-C, by Quang Starkey quality engineer medical device, on 12/28/2023 at 9:15 AM EST.? I, Robe Montoya PA-C, have personally reviewed and agree with the information entered by the scribe. Coding Level of Care Code Est Pt Level 3 (06023) Complex EM visit Add On G2211 Diagnoses Osteoarthritis of right hip M16.11
[2023-12-28 09:23] VITALS: BMI 24.6
== END 2023-12-28 10:17 | disposition home or self-care (01) ==
LOC: HO.HOS 08:57
PROVIDERS: PCP Internal Medicine; Visit Provider Physician Assistant
DX: M16.11 Unilateral primary osteoarthritis, right hip (principal)
CPT/HCPCS: 99213; G2211

== ENCOUNTER 2023-12-28 10:01 | Outpatient (REF) | payer MEDICARE, SELFPAY | END 2023-12-28 10:02 | disposition home or self-care (01) | LOC: HO.LAB 10:01 | PROVIDERS: PCP Internal Medicine; Visit Provider Physician Assistant | DX: Z13.89 Encounter for screening for other disorder (principal) | CPT/HCPCS: 86850; 86900; 86901 ==

== ENCOUNTER 2024-01-02 09:46 | Day surgery (SDC) | payer MEDICARE, SELFPAY ==
[2023-12-12 10:39] VITALS: BP 186/79; PULSE 66; RESP 20; O2SAT 98; BMI 25.3
--- NOTE | 2023-12-12 10:48 | P.CONAN_ITS ---
Documented by User: Nichol Conrad NP 01/01/24 08:54 HPI - Anesthesia Eval Consult details Narrative: 78yo M for Right Hip Total Replacement, 01/02/24 Medically optimized per PCP Cardiac optimized. s/p L MICKEY 01/2023 with GA-ETT 7 No recent illness No CP/SOB with stairs and rowing Bilat hearing aides Asthma. Stable. No inhalers needed Polycythemia - r/t testosterone injections (post-orchiectomy). Does not require phlebotomies. Tardive dyskinesia - ? d/t depression rx. Changed since but symptoms persist. Jaw moves with talking and resting tremors Chronic UTI - methenamine Hyperkalemia - transient, but upper normal for years, unclear etiology per patient. 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 (Acute) Osteoarthritis of right knee (Acute) Osteoarthritis of left knee (Acute) Osteoarthritis of right hip (Acute) Osteoarthritis of left hip (Acute) Varus deformity of knee (Acute) Bilateral primary osteoarthritis of knee (Acute) Bilateral primary osteoarthritis of hip (Acute) LUMBEE (hard of hearing) (Acute) Left otitis media (Acute) Left otitis externa (Acute) Bilateral inguinal hernia (Acute) Polycythemia (Acute) Hyperkalemia (Acute) Hypertension (Acute) BECKMAN (dyspnea on exertion) (Acute) Asthma (Acute) Past Medical History Medical History History of recurrent UTIs Incomplete bladder emptying BPH loc w urin obs/LUTS ADD (attention deficit disorder) Enlarged prostate Hyperkalemia Tardive dyskinesia Hard of hearing Hypothyroid Depression Polycythemia Osteoarthritis HTN (hypertension) Asthma Testicular cancer Family History Family History Father Clogged artery (heart) Mother Cardiac disease Family history of problems with anesthesia: No Surgical History Surgical History History of total left hip arthroplasty Hx of unilateral orchiectomy Hx of excision of mass H/O colonoscopy History of cholecystectomy History of back surgery History of right knee surgery History of left knee surgery History of intestinal surgery History of Problems with Anesthesia: No Social History Social History Household Members: Spouse Housing: House Are you a primary neonatal intensive care nurse to a significant other at home: No Do you presently have visiting nurse or other home services: No Alcohol intake: current Alcohol intake frequency: a few times a week Alcohol type: beer Patient Tobacco Use Status: Never used Tobacco Use of substances other than those prescribed or required for medical reasons: No Substance Use Type: Marijuana Have you been hit, kicked, punched, or otherwise hurt by someone within the past year? If so, by whom?: No Spiritual Healthcare Practices: none Taoism Healthcare Practices: Shinto Cultural Healthcare Practices: none Are you DNR?: No Advance Directives: Yes Advance Directives Information Provided: Yes Advance Directives on File: Yes Advance Directives Date on File: 02/03/23 Recently lost weight without trying: No Eating poorly because of decreased appetite: No Nutrition Risks: Surgical patient >75years Poor oral hygiene: No (caps that are chipped) service: No Meds Allergies Allergy/AdvReac Type Severity Reaction Status Date / Time adhesive tape [ADHESIVE TAPE] Allergy Intermediate RASH Verified 01/02/24 06:17 cashew nut [CASHEW NUT] Allergy Intermediate SWELLING Verified 01/02/24 06:17 sulfamethoxazole Allergy Intermediate Rash Verified 01/02/24 06:17 [From Bactrim] trimethoprim [From Bactrim] Allergy Intermediate Rash Verified 01/02/24 06:17 PERM HAIR DYE Allergy Severe severe rash Uncoded 01/02/24 06:17 Home Medications ?Medication ?Instructions ?Recorded ?Confirmed ?Last Taken ?Type atorvastatin 80 mg tablet 80 mg PO BEDTIME 03/05/20 12/27/23 Unknown History levothyroxine 125 mcg tablet 125 mcg PO QAM 03/05/20 12/27/23 06/27/23 History omeprazole 40 mg capsule,delayed 40 mg PO QAM 03/05/20 12/27/23 06/27/23 History release testosterone cypionate 200 mg/mL 200 mg IM Q2W 03/05/20 12/27/23 Unknown History intramuscular oil cholecalciferol (vitamin D3) 25 25 mcg PO QAM 04/30/20 12/27/23 Unknown History mcg (1,000 unit) capsule primidone 50 mg tablet 50 mg PO BID 04/30/20 12/27/23 01/31/23 History tamsulosin 0.4 mg capsule 0.4 mg PO BID 04/30/20 12/27/23 01/31/23 History escitalopram oxalate 20 mg tablet 20 mg PO QAM 04/05/21 12/27/23 01/31/23 History (Lexapro) propranolol 120 mg capsule,24 120 mg PO Q2D 07/07/21 12/27/23 06/27/23 History hr,extended release methenamine hippurate 1 gram tablet 1 g PO BID 08/18/22 12/27/23 01/31/23 History multivitamin 1 tab PO QAM 08/18/22 12/27/23 Unknown History acetaminophen 325 mg tablet 650 mg PO Q6H Pain, Mild (Pain 12/12/23 12/27/23 Unknown History Scale 1-3) amlodipine 5 mg tablet 5 mg PO QAM 12/12/23 12/27/23 Unknown History diclofenac sodium 75 mg 75 mg PO BID PRN Pain (Scale Score 01/02/24 01/02/24 12/25/23 History tablet,delayed release 1-3) Exam Pertinent Lab Results Pertinent Lab Results: Lab Results 12/12/23 12/28/23 Range/Units 10:50 10:30 Nasal Screen MRSA (PCR) NEGATIVE (Negative) Nasal S. aureus Screen NEGATIVE (Negative) Nasal MRSA/S.aureus Interp SEE NOTE Blood Type O Positive Antibody Screen NEGATIVE Laboratory Tests 12/12/23 10:07 WBC 7.5 Hgb 15.7 Hct 46.9 Plt Count 270 Sodium 140 Potassium 4.3 Chloride 103 Carbon Dioxide 28 BUN 20 H Creatinine 0.98 Narrative Narrative: EKG 11/2023 Vent. Rate : 057 BPM Atrial Rate : 057 BPM P-R Int : 170 ms QRS Dur : 076 ms QT Int : 420 ms P-R-T Axes : 066 013 065 degrees QTc Int : 408 ms Sinus bradycardia Possible Left atrial enlargement Borderline ECG When compared with ECG of 16-JAN-2023 10:30, No significant change was found Airway Mallampati Class: II TM Dist: >3cm Neck ROM: Full Loose/Missing/Broken Teeth: Yes (3 x broken capped molars) Heart: RRR Lungs: CTAB Assessment and Plan Assessment Anesthesia Assessment: Anesthesia Plan Discussed and PAT Visit Final Anesthetic Review Family History of Problems with Anesthesia: No History of Problems with Anesthesia: No Documented by User: Flower Rollins MD 01/02/24 07:26 [facility] Past Medical History Medical History History of recurrent UTIs Incomplete bladder emptying BPH loc w urin obs/LUTS ADD (attention deficit disorder) Enlarged prostate Hyperkalemia Tardive dyskinesia Hard of hearing Hypothyroid Depression Polycythemia Osteoarthritis HTN (hypertension) Asthma Testicular cancer Family History Family History Father Clogged artery (heart) Mother Cardiac disease Surgical History Surgical History History of total left hip arthroplasty Hx of unilateral orchiectomy Hx of excision of mass H/O colonoscopy History of cholecystectomy History of back surgery History of right knee surgery History of left knee surgery History of intestinal surgery Social History Social History Household Members: Spouse Housing: House Are you a primary neonatal intensive care nurse to a significant other at home: No Do you presently have visiting nurse or other home services: No Alcohol intake: current Alcohol intake frequency: a few times a week Alcohol type: beer Patient Tobacco Use Status: Never used Tobacco Use of substances other than those prescribed or required for medical reasons: No Substance Use Type: Marijuana Have you been hit, kicked, punched, or otherwise hurt by someone within the past year? If so, by whom?: No Spiritual Healthcare Practices: none Taoism Healthcare Practices: Shinto Cultural Healthcare Practices: none Are you DNR?: No Advance Directives: Yes Advance Directives Information Provided: Yes Advance Directives on File: Yes Advance Directives Date on File: 02/03/23 Recently lost weight without trying: No Eating poorly because of decreased appetite: No Nutrition Risks: Surgical patient >75years Poor oral hygiene: No (caps that are chipped) service: No Meds Allergies Allergy/AdvReac Type Severity Reaction Status Date / Time adhesive tape [ADHESIVE TAPE] Allergy Intermediate RASH Verified 01/02/24 06:17 cashew nut [CASHEW NUT] Allergy Intermediate SWELLING Verified 01/02/24 06:17 sulfamethoxazole Allergy Intermediate Rash Verified 01/02/24 06:17 [From Bactrim] trimethoprim [From Bactrim] Allergy Intermediate Rash Verified 01/02/24 06:17 PERM HAIR DYE Allergy Severe severe rash Uncoded 01/02/24 06:17 Home Medications ?Medication ?Instructions ?Recorded ?Confirmed ?Last Taken ?Type atorvastatin 80 mg tablet 80 mg PO BEDTIME 03/05/20 12/27/23 Unknown History levothyroxine 125 mcg tablet 125 mcg PO QAM 03/05/20 12/27/23 06/27/23 History omeprazole 40 mg capsule,delayed 40 mg PO QAM 03/05/20 12/27/23 06/27/23 History release testosterone cypionate 200 mg/mL 200 mg IM Q2W 03/05/20 12/27/23 Unknown History intramuscular oil cholecalciferol (vitamin D3) 25 25 mcg PO QAM 04/30/20 12/27/23 Unknown History mcg (1,000 unit) capsule primidone 50 mg tablet 50 mg PO BID 04/30/20 12/27/23 01/31/23 History tamsulosin 0.4 mg capsule 0.4 mg PO BID 04/30/20 12/27/23 01/31/23 History escitalopram oxalate 20 mg tablet 20 mg PO QAM 04/05/21 12/27/23 01/31/23 History (Lexapro) propranolol 120 mg capsule,24 120 mg PO Q2D 07/07/21 12/27/23 06/27/23 History hr,extended release methenamine hippurate 1 gram tablet 1 g PO BID 08/18/22 12/27/23 01/31/23 History multivitamin 1 tab PO QAM 08/18/22 12/27/23 Unknown History acetaminophen 325 mg tablet 650 mg PO Q6H Pain, Mild (Pain 12/12/23 12/27/23 Unknown History Scale 1-3) amlodipine 5 mg tablet 5 mg PO QAM 12/12/23 12/27/23 Unknown History diclofenac sodium 75 mg 75 mg PO BID PRN Pain (Scale Score 01/02/24 01/02/24 12/25/23 History tablet,delayed release 1-3) Assessment and Plan Final Anesthetic Review NPO: Yes ASA Class: III Final Preanesthetic Review: No Changes in Pt Med Stat, Meds/Allgs Chart Reviewed, Consent Obtained/Reviewed and Anes Risks/Benef Reviewed Patient Risk: Intermediate Procedure Risk: Intermediate Anesthetic Plan Anesthetic Plan: GA Disposition: Standard PACU
[2023-12-12 13:14] LABS: MRSA Nasal PCR NEGATIVE (Negative); SA Nasal PCR NEGATIVE (Negative)
[2024-01-02] VITALS (24 sets, daily range): BP systolic 110–164; BP diastolic 46–88; PULSE 66–88; RESP 16–20; TEMP 36.6–37.2; O2SAT 95–100; BMI 25.1
--- NOTE | ~2024-01-02 | XR_ITS ---
EXAMINATION: XR PELVIS CLINICAL INFORMATION: Status post surgery. COMPARISON: December 28, 2023. TECHNIQUE: AP view of the pelvis. FINDINGS: Total metallic prosthesis with an acetabular and femoral components well seated in the osseous structures with normal alignment. Skin sybil overlapping the right hip. Status post total left hip arthroplasty procedure, unchanged. XR/XR pelvis 1-2V IMPRESSION: Status post total right hip arthroplasty prosthesis. Electronically signed by: Cornelio Serrano MD 01/02/2024 01:37 PM EST
--- OUTSIDE RECORDS SUMMARY | 2024-01-02 06:11 | XMS_ITS ---
Author Organization [facility] Address [address] [place] [address] Care Team Providers Care Stitch Cleaner Name Role Phone Mike Jolley DO Primary Care Provider Unavail Ramone Davila Jr Unavailable REASON FOR VISIT screening,hx polyps Encounters Encounter Location Date Provider Diagnosis [facility] [address] [place] [address] [phone] 06/27/2023 Ramone Teixeira Jr Encounter for screening colonoscopy Z12.11 ; Personal history of colonic polyps Z86.010 and Colon polyps K63.5 ASSESSMENTS Encounter Date Diagnosis Assessment Notes Treatment Notes Treatment Clinical Notes 06/27/2023 Encounter for screening colonoscopy (ICD-10 - Z12.11) 06/27/2023 Personal history of colonic polyps (ICD-10 - Z86.010) 06/27/2023 Colon polyps (ICD-10 - K63.5) PLAN OF TREATMENT No Information
--- OUTSIDE RECORDS SUMMARY | 2024-01-02 06:11 | XMS_ITS ---
Author Organization [facility] Address [address] [place] [address] Care Team Providers Care Lapeler Name Role Phone Mike Jolley DO Primary Care Provider Unavail Ramone Davila Jr Unavailable REASON FOR VISIT feels like he has a blockage PROBLEMS Problem Type ICD Code Onset Dates Problem Status W/U Status Risk SNOMED Code Notes Problem Generalized abdominal pain (R10.84) Active confirmed [id number] Encounters Encounter Location Date Provider Diagnosis [facility] [address] [place] [address] 09/25/2023 Ramone Teixeira Jr Generalized abdominal pain R10.84 ASSESSMENTS Encounter Date Diagnosis Assessment Notes Treatment Notes Treatment Clinical Notes 09/25/2023 Generalized abdominal pain (ICD-10 - R10.84) PLAN OF TREATMENT Pending Test Test Name Order Date LIVER PROFILE 09/25/2023 LIPASE 09/25/2023 CBC w/o DIFF 09/25/2023 XR abdomen 3V 09/25/2023
--- OUTSIDE RECORDS SUMMARY | 2024-01-02 06:11 | XMS_ITS | Patient Health Record ---
Author Organization [facility] Address [address] [place] [address] Care Team Providers Care Electric Knife Operator Name Role Phone Mike oJlley DO Primary Care Provider Unavail Ramone Davila Jr Unavailable ALLERGIES Allergen (clinical drug ingredient) Drug/Non Drug Allergy documented on EMR Reaction Allergy Type Onset Date Status cashews and permenan t hair dye (uncoded) Unknown Allergy Active RESULTS Component Value Reference Range Notes Pathology Reviewed date:06/29/2023 11:23:39 AM Interpretation: Performing Lab:[facility], [address] [place] [phone] Notes/Report: Complete Blood Count Auto Di ff Reviewed date:09/25/2023 04:22:59 PM Interpretation: Performing Lab:[facility], [address] [place] [phone] Notes/Report: White Blood Count 8.7 4.8-10.8 X10*3/uL Red Blood Count 5.21 4.60-5.80 X10*6/uL Hemoglobin 16.4 14.0-18.0 g/dl Hematocrit 48.4 42.0-52.0 % Mean Corpuscular Volume 92.9 80.0-98.0 fL Mean Corpuscular Hemoglobin 31.5 27.0-33.0 pg Mean Corpuscular HGB Conc 33.9 31.0-36.0 g/dl Red Cell Distribution Width 13.8 11.0-16.0 % Platelet Count 307 160-400 X10*3/uL Mean Platelet Volume 10.0 9.4-12.4 fL Neutrophils Percent Auto 69.6 45-73 % Imm Gran Pct Auto 0.3 0.0-0.4 % Lymphocytes Percent Auto 15.7 20-40 % Monocytes Percent Auto 12.6 2-11 % Eosinophils Percent Auto 1.6 0-4 % Basophils Percent Auto 0.2 0-2 % NRBC Pct Auto 0.0 0.0-0.2 /100WBC Neutrophils Absolute Auto 6.0 2.0-8.3 x10*3/u L Imm Gran Abs Auto 0.03 0.00-0.03 X10*3/uL Lymphocytes Absolute Auto 1.4 1.2-4.9 X10*3/u L Monocytes Absolute Auto 1.1 0.1-1.2 X10*3/uL Eosinophils Absolute Auto 0.1 0.0-0.4 X10*3/u L Basophils Absolute Auto 0.0 0.0-0.2 X10*3/uL NRBC Abs Auto 0.000 0.0-0.012 X10*3/uL Liver Panel Reviewed date:09/25/2023 04:22:53 PM Interpretation: Performing Lab:[facility], [address] [place] [phone] Notes/Report: Bilirubin Total 0.6 0.0-1.0 mg/dL Bilirubin Direct 0.2 0.0-0.5 mg/dL Slight Hem olysis Aspartate Amino Transferase 33 5-37 U/L Slight Hemolysis Alanine Aminotransferase 16 0-40 U/L Total Protein 8.4 6.5-8.0 g/dL Albumin Level 4.4 3.5-5.0 g/dL Alkaline Phosphatase 99 39-117 U/L Lipase Reviewed date:09/25/2023 04:22:44 PM Interpretation: Performing Lab:[facility], [address] [place] [phone] Notes/Report: Lipase 12 8-78 U/L XR abdomen min 2V Reviewed date:09/25/2023 08:55:33 PM Interpretation: Performing Lab: Notes/Report: [address] [address] XRay Report Signed Patient: Jefry Bojorquez MR#: [id number] 6 : 1945 Acct:[id number] Age/Sex: 78 / M ADM Date: 09/25/23 Loc: HO.XRAY Attending Dr: Ramone Teixeira MD Ordering Physician: Ramone Teixeira MD Date of Service: 09/25/23 Procedure(s): XR abdomen min 2V Accession Number(s): [id number] cc: Ramone Teixeira MD; Mike Jolley DO EXAMINATION: XR ABDOMEN COMPLETE CLINICAL INDICATION: Abdominal pain COMPARISON: None available. TECHNIQUE: 2 views of the abdomen. FINDINGS: The bowel gas pattern is normal with no evidence of ileus or obstruction. No unusual soft tissue calcifications are noted. Degenerative changes and scoliosis are present in the spine. There is lateral and posterior fixation seen at L3-L4 with an interbody device. A left hip prosthesis is partially visualized. We pelvis are present in the pelvis. No unusual calcifications. XR/XR abdomen min 2V IMPRESSION: No evidence of bowel obstruction. Incidental findings as described above. Dictated By: Jd Casas MD Signed By: <Electronically signed by Jd Casas MD in OV> 09/25/23 1641 DD/ 1454 TD/TT: Social Psychologist: SS REASON FOR REFERRAL No Information MEDICATIONS Medication SIG (Take, Route, Frequency, Duration) Notes Start Date End Date Status MiraLax (colon prep) 17 GM/SCOOP mixed with Gatorade or Crystal Light Orally begin at 5:00 p.m. the day before the procedure for 1 day 04/19/2023 Active Levothyroxine Sodium 125 MCG 1 tablet on an empty stomach in the morning Orally Once a day Active Colyte with Flavor Packs 240 GM As directed Orally Over the specified time. for 1 day(s) 05/23/2018 Active Atorvastatin Calcium 80 MG 1 tablet Oral ly Once a day for 30 day(s) Active Adderall 20 MG 1 tablet Orally Twic e a day Active Propranolol HCl ER 120 MG 1 capsule Oral ly Once a day for 30 day(s) Active ALPRAZolam 1 MG 1 tablet Orally thre e x a day Active Sulfamethoxazole-Trimethop rim 400-80 MG 1 tablet Orally Once a day for 10 day(s) Active Escitalopram Oxalate 10 MG 1 1/2 tablet Orally Once a day Active Diclofenac Sodium 75 MG 1 tablet as need ed Orally Twice a day Active Clobetasol Propionate 0.05 % 1 application to affected area Externally as directed Active Primidone 50 MG 3 tablet Orally once a day Active Multi Vitamin/Minerals - as directed Ora lly once a day Active Vitamin D 1000 UNIT 1 tablet Orally Once a day for 30 day(s) Active Testosterone Enanthate 200 MG/ML 1 ml Intramuscular every two weeks Active Tamsulosin HCl 0.4 MG 1 capsule Orally O nce a day for 30 day(s) Active Omeprazole 40 MG 1 capsule Orally Onc e a day for 30 day(s) Active IMMUNIZATIONS Vaccine Route Administration Date Status Comme nts Influenza Unknown 03/06/2018 Administered Influenza Unknown 11/15/2022 Administered SOCIAL HISTORY Tobacco Use: Social History Observation Description Date Details (start date - stop date) Never Smoker NA - NA Sex Assigned At : Social History Observation Description Sex Assigned At Unknown Tobacco Use/Smoking Question Answer Notes Patient is a nonsmoker Alcohol Screen Question Answer Notes Did you [...] W/U Status Risk SNOMED Code Notes Problem Hypertension, unspecified type (I10) Active confirmed 45408249 Problem Constipation, unspecified constipation type (K59.00) Active confirmed 41445390 Problem Colon cancer screening (Z12.11) Active confirmed 344364718 Problem Personal history of colonic polyps (Z86.010) Active confirmed 375329115 Problem Encounter for long-term (current) use of NSAIDs (Z79.1) Active confirmed 042407499 Problem Generalized abdominal pain (R10.84) Active confirmed 726324501 VITAL SIGNS Temperature 97.7 degrees Fahrenheit 04/19/2023 Blood pressure diastolic 00 mm Hg 04/19/2023 Height 68 in 04/19/2023 Blood pressure systolic 000 mm Hg 04/19/2023 Weight 162 lbs 04/19/2023 BMI 24.63 kg/m2 04/19/2023 Encounters Encounter Location Date Provider Diagnosis [facility] Outpatient [address] [place] [address] [id number] 06/27/2023 Ramone Teixeira Jr Encounter for screening colonoscopy Z12.11 ; Personal history of colonic polyps Z86.010 and Colon polyps K63.5 [facility] [address] [place] [phone] 04/19/2023 Ramone Teixeira Jr Colon cancer screening Z12.11 ; Encounter for long-term (current) use of NSAIDs Z79.1 and Personal history of colonic polyps Z86.010 [facility] [address] [place] [phone] 06/29/2023 Ramone Teixeira Jr [facility] [address] [phone] 09/25/2023 Ramone Teixeira Jr Generalized abdominal pain R10.84 ASSESSMENTS Encounter Date Diagnosis Assessment Notes Treatment Notes Treatment Clinical Notes 06/27/2023 Encounter for screening colonoscopy (ICD-10 - Z12.11) 06/27/2023 Personal history of colonic polyps (ICD-10 - Z86.010) 04/19/2023 Colon cancer screening (ICD-10 - Z12.11) Colonoscopy material was printed 04/19/2023 Encounter for long-term (current) use of NSAIDs (ICD-10 - Z79.1) 09/25/2023 Generalized abdominal pain (ICD-10 - R10.84) 06/27/2023 Colon polyps (ICD-10 - K63.5) 04/19/2023 Personal history of colonic polyps (ICD-10 - Z86.010) PLAN OF TREATMENT Pending Test Test Name Order Date LIVER PROFILE 09/25/2023 LIPASE 09/25/2023 CBC w/o DIFF 09/25/2023 XR abdomen 3V 09/25/2023 Future Test Test Name Order Date COLONOSCOPY 05/23/2018 COLONOSCOPY 04/19/2023 Insurance Providers Payer Name Payer Address Payer Phone Subscriber Number Group Number Insured Name Patient Relationship to Insured Coverage Start Date Coverage End Date [place] [address] [place] [address] [id number] JEFRY BOJORQUEZ Self - patient is the insured [employer] ATT[employer] CLAIMS [address] [place] [address] [id number] JEFRY BOJORQUEZ Self - patient is the insured MEDICAL (GENERAL) HISTORY Medical History History ICD Code Testicular cancer EGD/depression Hypothyroid Tremor/tardive dyskinesia Hyperlipidemia Gastroesophageal reflux disease Hypertension Polycythemia Osteoarthritis Colon polyps, colonoscopy 09/14, multiple adenomas, three-year followup Elevated PSA, scheduled for prostate bio psy Surgical History Surgery Date(Month/Year) Unilateral orchiectomy 1996 colon resection for blockage per patient 1998,2008 knee surgery 2022 Back surgery 04/21 Left hip replacement 02/18
--- OUTSIDE RECORDS SUMMARY | 2024-01-02 06:11 | XMS_ITS ---
Author Organization [facility] Address [address] [place] [address] Care Team Providers Care Pigment Weigher Name Role Phone Mike Jolley DO Primary Care Provider Unavail able Ramone Teixeira Jr Unavailable REASON FOR VISIT pathology Encounters Encounter Location Date Provider Diagnosis [facility] [address] [place] [address] 06/29/2023 Ramone Teixeira Jr PLAN OF TREATMENT No Information
--- OUTSIDE RECORDS SUMMARY | 2024-01-02 06:12 | XMS_ITS ---
Author Organization Mike Jolley DO, [facility] Address [address] [place], [place] [id number] Care Team Providers Care Roughener Name Role Phone SholaMike field Primary Care Provider Keshawn IQBAL, Lino Unavailable Unavailable ALLERGIES Allergen (clinical drug ingredient) Drug/Non Drug Allergy documented on EMR Reaction Allergy Type Onset Date Status sulfamethoxazole / trimethoprim Bactrim DS skin sores, itch Drug Allergy Active REASON FOR VISIT pre-op, right hip osteoarthritis MEDICATIONS Medication SIG (Take, Route, Frequency, Duration) Notes Start Date End Date Status Omeprazole 40 MG 1 capsule 30 minutes before morning meal Orally Once a day for 90 days Active Omeprazole 40 MG 1 capsule 30 minutes before morning meal Orally Once a day for 90 12/13/2023 Active Testosterone Enanthate 200 MG/ML 1 mL Intramuscular Once every 2 weeks Active Methenamine Hippurate 1 GM 1 tablet Oral ly Twice a day Active Diclofenac Sodium 75 MG 1 tablet as need ed Orally Twice a day Active Levothyroxine Sodium 125 MCG 1 tablet in the morning on an empty stomach Orally Once a day Active Multivitamins 1 capsule Orally Onc e a day Active Vitamin D 1000 UNIT 1 capsule Orally Onc e a day 10/20/2014 Active Atorvastatin Calcium 80 MG 1 tablet Orally Once a day Active Propranolol HCl ER 120 MG 1 capsule Oral ly Once every other day Active Primidone 50 MG 1 tablet Orally Twic e a day Active Tamsulosin HCl 0.4 MG 1 capsule Orally T wice a day Active Escitalopram Oxalate 20 MG 1 tablet Orally Once a day Active amLODIPine Besylate 5 MG 1 tablet Orally Once a day Active SOCIAL HISTORY Tobacco Use: Social History Observation [...] W/U Status Risk SNOMED Code Notes Problem Primary osteoarthritis of right hip (M16.11) Active confirmed [id number] VITAL SIGNS BMI 25.84 kg/m2 12/13/2023 Blood pressure systolic 130 mm Hg 12/13/19 24 Blood pressure diastolic 70 mm Hg 024 Height 67.00 in 12/13/2023 Weight 165 lbs 12/13/2023 Encounters Encounter Location Date Provider Diagnosis Mike Ross Shola DO, [address] [phone] 12/13/2023 Mike Cabreraman Primary osteoarthrit is of right hip M16.11 ; Hypercholesterolemia E78.00 ; Tremor R25.1 ; Benign prostatic hyperplasia with lower urinary tract symptoms N40.1 ; Generalized anxiety disorder F41.1 and Acquired hypothyroidism E03.9 ASSESSMENTS Encounter Date Diagnosis Assessment Notes Treatment Notes Treatment Clinical Notes 12/13/2023 Primary osteoarthrit is of right hip (ICD-10 - M16.11) Joel is an acceptable candidate for the proposed surgical procedure and is medically cleared for surgery, pending a satisfactory electrocardiogram . He was advised to hold the diclofenac for 1 week prior to surgery 12/13/2023 Hypercholesterolemia (ICD-10 - E78.00) 12/13/2023 Tremor (ICD-10 - R25.1) 12/13/2023 Benign prostatic hyperplasia with lower urinary tract symptoms (ICD-10 - N40.1) 12/13/2023 Generalized anxiety disorder (ICD-10 - F41.1) 12/13/2023 Acquired hypothyroid ism (ICD-10 - E03.9) PLAN OF TREATMENT Medication Medication Name Sig Start Date Stop Date Notes Omeprazole 40 MG 1 capsule 30 minutes before morning meal Orally Once a day for 90 12/13/2023 Methenamine Hippurate 1 GM 1 tablet Orally Twice a day Diclofenac Sodium 75 MG 1 tablet as need ed Orally Twice a day Levothyroxine Sodium 125 MCG 1 tablet in the morning on an empty stomach Orally Once a day Multivitamins 1 capsule Orally Once a day Vitamin D 1000 UNIT 1 capsule Orally Once a day 10/20/2014 Atorvastatin Calcium 80 MG 1 tablet Orally Once a day Propranolol HCl ER 120 MG 1 capsule Oral ly Once every other day Primidone 50 MG 1 tablet Orally Twice a day Tamsulosin HCl 0.4 MG 1 capsule Orally Twice a day Escitalopram Oxalate 20 MG 1 tablet Orally Once a day amLODIPine Besylate 5 MG 1 tablet Orally Once a day Treatment Notes Assessment Notes Primary osteoarthritis of right hip Brittanie hogue is an acceptable candidate for the proposed surgical procedure and is medically cleared for surgery, pending a satisfactory electrocardiogram. He was advised to hold the diclofenac for 1 week prior to surgery Pending Test Test Name Order Date Electrocardiogram (EKG) 12/13/2023 Next Appt Details Provider Name:Mike Walker renetta, 01/23/2024 11:00:00 AM, [address] [place] [address], [phone], Progress Notes * Examination Category Sub-Category Detail Notes General Examination GENERAL APPEARANCE: in no ac craig distress, well developed, well nourished HEAD: normocephalic, atrau matic EYES: sclera non-icteric THROAT: clear NECK/THYROID: neck supple, thyroid normal, no cervical lymphadenopathy HEART: no murmurs, regular rate and rhythm, S1, S2 normal LUNGS: clear to auscultatio n bilaterally ABDOMEN: normal, bowel sounds present, soft, nontender, nondistended NEUROLOGIC: nonfocal SKIN: warm and dry EXTREMITIES: no edema PSYCH: alert, oriented, cog nitive function intact ORAL CAVITY: mucosa moist
--- OUTSIDE RECORDS SUMMARY | 2024-01-02 06:12 | XMS_ITS ---
Author Organization Mike Jolley DO, [facility] Address [address] [place] [phone] Care Team Providers Care Cigar Head Stringer Name Role Phone Mike Jolley Primary Care Provider Keshawn IQBAL, Lino Unavailable Unavailable REASON FOR VISIT Message SOCIAL HISTORY Sex Assigned At : Social History Observation Description Sex Assigned At Male Encounters Encounter Location Date Provider Diagnosis Mike [facility] DO[facility] [address] [place] [phone] 12/18/2023 Mike Jolley PLAN OF TREATMENT Next Appt Details Provider Name:Mike jackson, 01/23/2024 11:00:00 AM, [address] [place] [address], [phone],
--- OUTSIDE RECORDS SUMMARY | 2024-01-02 06:13 | XMS_ITS | Patient Health Record ---
Author Organization Mike Jolley DO, [facility] Address [address], [place] [id number] Care Team Providers Care Furnace Roaster Name Role Phone Mike Jolley Primary Care Provider Keshawn IQBAL, Lino Unavailable Unavailable ALLERGIES Allergen (clinical drug ingredient) Drug/Non Drug Allergy documented on EMR Reaction Allergy Type Onset Date Status sulfamethoxazole / trimethoprim Bactrim DS skin sores, itch Drug Allergy Active RESULTS Component Value Reference Range Notes Basic Metabolic Panel Reviewed date:01/16/2023 04:49:55 PM Interpretation:Abnormal Performing Lab:[facility], [address] [place] [phone] Notes/Report: Sodium 137 135-145 mmol/L Potassium 4.3 3.3-5.1 mmol/L Chloride 102 96-108 mmol/L Carbon Dioxide 31 22-29 mmol/L Anion Gap 8 12-20 Blood Urea Nitrogen 19 9-16 mg/dL Creatinine 1.09 0.5-1.4 mg/dL Estimated Glomerular Filt Rate > 60 NOTE: For -Micronesian individuals, multiply the result by 1.210. Chronic Kidney Disease: Estimated GFR < 60 mL/min/1.73m2 Severe Kidney Disease: Estimated GFR < 15 mL/min/1.73m2 Glucose Random 110 60-115 mg/dL Calcium 9.6 8.4-10.2 mg/dL MRSA Nasal Screen Reviewed date:01/24/2023 01:24:49 PM Interpretation:Negative Performing Lab:[facility], [address] [place] [phone] Notes/Report: MRSA Nasal PCR NEGATIVE Negative SA Nasal PCR NEGATIVE Negative MRSA Interpretation SEE NOTE MRSA target DNA not detected; SA target DNA not detected. A MRSA NEGATIVE, SA NEGATIVE test result does not preclude MRSA or SA nasal colonization. Type and Screen Reviewed date:01/23/2023 09:24:13 PM Interpretation:O Positive Performing Lab:[facility], [address] [place] [phone] Notes/Report: Spec expiration changed by TEDDY on 01/23/23 Reason: For SURGERY NURSING: Call Blood Bank (ext. [phone]) to band patient on admission. Type and Screen in effect until 2300 on 01/31/2023 Witnessed by SUZIT Blood Type OP Antibody Screen NEGATIVE Potassium Reviewed date:01/31/2023 11:30:41 AM Interpretation:Normal Performing Lab:[address] [phone] Notes/Report: Potassium 4.1 3.3-5.1 mmol/L Slight Hemoly sis Pathology Reviewed date:02/05/2023 02:39:30 PM Interpretation:Benign Performing Lab:[address] [address] Notes/Report: XR pelvis 1-2V Reviewed date:02/06/2023 03:19:14 PM Interpretation:Abnormal Performing Lab: Notes/Report: [address] [address] XRay Report Signed Patient: Joel Stout MR#: [id number] 6 : 1945 Acct:[id number] Age/Sex: 77 / M ADM Date: 01/31/23 Loc: RAUL 368-[address]: Robe Montoya PA-C Ordering Physician: Robe Montoya PA-C Date of Service: 01/31/23 Procedure(s): XR pelvis 1-2V Accession Number(s): [id number] cc: Mike Jolley DO; Meuse, Ta-Mara PA-C EXAMINATION: XR PELVIS CLINICAL INFORMATION: Left total hip arthroplasty. COMPARISON: AP pelvis 10/06/2022 and MRI left hip 01/07/2023. TECHNIQUE: AP view of the pelvis. FINDINGS: There is a total left hip arthroplasty with prosthetic components in satisfactory alignment. The right hip joint space is maintained normal. SI joints are normal. Immediate postoperative changes around the left hip are noted. XR/XR pelvis 1-2V IMPRESSION: Status post total left hip arthroplasty with satisfactory alignment of left hip prosthesis. Immediate postoperative changes are noted. Dictated By: Kenneth Kenney MD Signed By: <Electronically signed by Kenneth Kenney MD in OV> 02/06/23 1508 DD/ 1620 TD/TT: Client Account Manager: RENEE Hemoglobin and Hematocrit Reviewed date:02/01/2023 10:01:24 AM Interpretation:Abnormal Performing Lab:[facility], [address] [place] [phone] Notes/Report: Reason for Daily Order Other Hemoglobin 12.4 14.0-18.0 g/dl Hematocrit 37.8 42.0-52.0 % Basic Metabolic Panel Fastin g Reviewed date:02/01/2023 10:01:45 AM Interpretation:Abnormal Performing Lab:[facility], [address] [place] [phone] Notes/Report: Sodium 134 135-145 mmol/L Potassium 3.7 3.3-5.1 mmol/L Chloride 99 96-108 mmol/L Carbon Dioxide 26 22-29 mmol/L Anion Gap 13 12-20 Blood Urea Nitrogen 15 9-16 mg/dL Creatinine 0.87 0.5-1.4 mg/dL Creatinine Clr Calc Pharmacy 69.8 eGFR (calculated from the MDRD study equation) and eCrCl (calculated from the Cockcroft-Gault equation) are based on different parameters and may not yield comparable results. If eCrCl result is absurd, please check patient's height/weight. Estimated Glomerular Filt Rate > 60 NOTE: For -Micronesian individuals, multiply the result by 1.210. Chronic Kidney Disease: Estimated GFR < 60 mL/min/1.73m2 Severe Kidney Disease: Estimated GFR < 15 mL/min/1.73m2 Glucose Fasting 113 60-99 mg/dL A fasting glucose from 100-125 mg/dl is considered impaired (pre-diabetes). Calcium 8.5 8.4-10.2 mg/dL Hemoglobin and Hematocrit Reviewed date:02/02/2023 08:17:35 AM Interpretation:Abnormal Performing Lab:[facility], [address] [place] [phone] Notes/Report: Reason for Daily Order Other Hemoglobin 11.4 14.0-18.0 g/dl Hematocrit 33.5 42.0-52.0 % Basic Metabolic Panel Fastin g Reviewed date:02/02/2023 08:17:35 AM Interpretation:Abnormal Performing Lab:[facility], [address] [place] [phone] Notes/Report: Sodium 134 135-145 mmol/L Potassium 3.7 3.3-5.1 mmol/L Chloride 98 96-108 mmol/L Carbon Dioxide 27 22-29 mmol/L Anion Gap 13 12-20 Blood Urea Nitrogen 13 9-16 mg/dL Creatinine 0.87 0.5-1.4 mg/dL Creatinine Clr Calc Pharmacy 69.8 eGFR (calculated from the MDRD study equation) and eCrCl (calculated from the Cockcroft-Gault equation) are based on different parameters and may not yield comparable results. If eCrCl result is absurd, please check patient's height/weight. Estimated Glomerular Filt Rate > 60 NOTE: For -Micronesian individuals, multiply the result by 1.210. Chronic Kidney Disease: Estimated GFR < 60 mL/min/1.73m2 Severe Kidney Disease: Estimated GFR < 15 mL/min/1.73m2 Glucose Fasting 127 60-99 mg/dL A fasting glucose of 126 mg/dl or greater on more than one occasion is considered diagnostic of diabetes. Calcium 8.6 8.4-10.2 mg/dL Pathology Reviewed date:06/28/2023 12:44:23 PM Interpretation:Tubular adenoma Performing Lab:[facility], [address] [place] [phone] Notes/Report: XR abdomen min 2V Reviewed date:09/25/2023 08:35:32 PM Interpretation:Abnormal Performing Lab: Notes/Report: [address] [address] XRay Report Signed Patient: Joel Stout MR#: [id number] 6 : 1945 Acct:[id number] Age/Sex: 78 / M ADM Date: 09/25/23 Loc: HO.XRAY Attending Dr: Ramone Teixeira MD Ordering Physician: Ramone Teixeira MD Date of Service: 09/25/23 Procedure(s): XR abdomen min 2V Accession Number(s): [id number] cc: Ramone Teixeira MD; Mike Jolley DO [...] in OV> 09/25/23 1641 DD/ 1454 TD/TT: Client Account Manager: COLLINS FL guided needle placement Reviewed date:12/01/2023 03:20:52 PM Interpretation:Needle Placement Performing Lab: Notes/Report: [facility] [address] [place] [address] [place] [address] Fluoroscopy Report Signed Patient: Joel Stout MR#: [id number] 6 : 1945 Acct:[id number] Age/Sex: 78 / M ADM Date: 10/04/23 Loc: HOSX Attending Dr: Margarita Adames MD Ordering Physician: Margarita Adames MD Date of Service: 10/04/23 Procedure(s): FL guided needle placement Accession Number(s): [id number] cc: Mike Jolley DO; Margarita Adames MD EXAMINATION: XR FLUOROSCOPY WITH IMAGES CLINICAL INFORMATION: Right wrist primary osteoarthritis. COMPARISON: Radiographs right wrist 09/06/2023 TECHNIQUE: Fluoroscopy provided to: Dr. Adames Fluoroscopy time: 12.45 seconds DAP: 8145.8 Gycm2 Images: 1 FINDINGS: Solitary image right wrist shows needle placement within the DRUJ at the level of the scapholunate joint. FL/FL guided needle placement IMPRESSION: Fluoroscopic guidance. Please refer to the full operative report for details. Electronically signed by: Shreyas Muñoz MD 12/01/2023 02:57 PM EDT Dictated By: Shreyas Muñoz MD Signed By: <Electronically signed by Shreyas Muñoz MD in OV> 12/01/23 1457 DD/ 1540 TD/TT: 10/04/23 1610 Client Account Manager: MR hip RT wo con Reviewed date:11/28/2023 12:03:14 PM Interpretation:Abnormal Performing Lab: Notes/Report: [address] [address] Magnetic Resonance Report Signed Patient: Joel Stout MR#: [id number] 6 : 1945 Acct:[id number] Age/Sex: 78 / M ADM Date: 11/24/23 Loc: HO.MRI Attending Dr: Ash Mckinley MD Ordering Physician: Ash Mckinley MD Date of Service: 11/24/23 Procedure(s): MR hip RT wo con Accession Number(s): [id number] cc: Ash Mckinley MD; Mike Jolley DO EXAMINATION: MR HIP WITHOUT CONTRAST, RIGHT CLINICAL INFORMATION: Worsening right hip pain. Osteoarthritis. COMPARISON: Most recent pelvic radiograph dated 03/16/2023. TECHNIQUE: MRI of the right hip was obtained using routine sequences on a high-field strength magnet. FINDINGS: ACETABULAR LABRUM: Attenuation and heterogeneity of the anterosuperior and lateral labrum, consistent with degenerative tearing. There is linear fluid signal extending through the base of the posterior labrum, consistent with a nondisplaced undersurface tear. ARTICULAR CARTILAGE/BONE: Diffuse articular cartilage full-thickness loss with subchondral cystic change and marginal osteophytes. At the anterosuperior aspect of the femoral head, there is focal cortical depression with underlying low-T1/low-T2 signal and prominent marrow edema extending into the femoral head and neck. Findings are consistent with a minimally displaced subchondral fracture. This area measures up to 3.9 x 3.0 cm (AP x ML). No concerning lytic or blastic osseous lesion. Left hip arthroplasty without evidence of complication. MUSCLES/TENDONS: Mild gluteus medius and gluteus minimus tendinosis. JOINT FLUID/BURSA: Small right hip joint effusion. Mild synovitis. INTRAPELVIC STRUCTURES: Unremarkable. MR/MR hip RT wo con IMPRESSION: 1. Severe right hip osteoarthritis with a minimally displaced subchondral fracture at the anterosuperior aspect of the femoral head measuring up to 3.9 x 3.0 cm (AP x ML). Prominent marrow edema extending into the femoral head and neck. 2. Small right hip joint effusion with mild synovitis. 3. Nondisplaced undersurface tear of the posterior labrum. Degenerative tearing of the anterosuperior and lateral labrum. 4. Mild gluteus medius and gluteus minimus tendinosis. Electronically signed by: Polo Urrutia MD 11/28/2023 09:42 AM EDT Dictated By: Polo Urrutia MD Signed By: <Electronically signed by Polo Urrutia MD in OV> 11/28/23 0942 DD/ 1743 TD/TT: 11/24/23 1826 Client Account Manager: Complete Blood Count Auto Di ff Reviewed date:12/12/2023 12:44:34 PM Interpretation:Abnormal Performing Lab:[facility], [address] [place] [phone] Notes/Report: White Blood Count 7.5 4.8-10.8 X10*3/uL Red Blood Count 4.97 4.60-5.80 X10*6/uL Hemoglobin 15.7 14.0-18.0 g/dl Hematocrit 46.9 42.0-52.0 % Mean Corpuscular Volume 94.4 80.0-98.0 fL Mean Corpuscular Hemoglobin 31.6 27.0-33.0 pg Mean Corpuscular HGB Conc 33.5 31.0-36.0 g/dl Red Cell Distribution Width 14.1 11.0-16.0 % Platelet Count 270 160-400 X10*3/uL Mean Platelet Volume 10.6 9.4-12.4 fL Neutrophils Percent Auto 70.5 45-73 % Imm Gran Pct Auto 0.4 0.0-0.4 % Lymphocytes Percent Auto 14.0 20-40 % Monocytes Percent Auto 12.1 2-11 % Eosinophils Percent Auto 2.5 0-4 % Basophils Percent Auto 0.5 0-2 % NRBC Pct Auto 0.0 0.0-0.2 /100WBC Neutrophils Absolute Auto 5.3 2.0-8.3 x10*3/u L Imm Gran Abs Auto 0.03 0.00-0.03 X10*3/uL Lymphocytes Absolute Auto 1.1 1.2-4.9 X10*3/u L Monocytes Absolute Auto 0.9 0.1-1.2 X10*3/uL Eosinophils Absolute Auto 0.2 0.0-0.4 X10*3/u L Basophils Absolute Auto 0.0 0.0-0.2 X10*3/uL NRBC Abs Auto 0.000 0.0-0.012 X10*3/uL Liver Panel Reviewed date:12/12/2023 12:44:34 PM Interpretation:Normal Performing Lab:[address] [phone] Notes/Report: Bilirubin Total 0.6 0.0-1.0 mg/dL Bilirubin Direct 0.2 0.0-0.5 mg/dL Aspartate Amino Transferase 29 5-37 U/L Alanine Aminotransferase 14 0-40 U/L Total Protein 7.5 6.5-8.0 g/dL Albumin Level 4.1 3.5-5.0 g/dL Alkaline Phosphatase 95 39-117 U/L Basic Metabolic Panel Fastin g Reviewed date:12/12/2023 12:44:34 PM Interpretation:Abnormal Performing Lab:[address] [address] Notes/Report: Sodium 140 135-145 mmol/L Potassium 4.3 3.3-5.1 mmol/L Chloride 103 96-108 mmol/L Carbon Dioxide 28 22-29 mmol/L Anion Gap 13 12-20 Blood Urea Nitrogen 20 9-16 mg/dL Creatinine 0.98 0.5-1.4 mg/dL Estimated Glomerular Filt Rate > 60 NOTE: For -Micronesian individuals, multiply the result by 1.210. Chronic Kidney Disease: Estimated GFR < 60 mL/min/1.73m2 Severe Kidney Disease: Estimated GFR < 15 mL/min/1.73m2 Glucose Fasting 102 60-99 mg/dL A fasting glucose from 100-125 mg/dl is considered impaired (pre-diabetes). Calcium 9.9 8.4-10.2 mg/dL Lipid Panel Reviewed date:12/12/2023 12:44:34 PM Interpretation:Normal Performing Lab:[facility], [address] [place] [phone] Notes/Report: Triglycerides 145 <150 mg/dL Desirable Triglyceride: less than 150 mg/dL Borderline High Triglyceride 150-199 mg/dL High Triglyceride: 200-499 mg/dL Very High Triglyceride: greater than or equal to 5OO mg/dL Cholesterol 160 <200 mg/dL Desirable Cholesterol: less than 200 mg/dL Borderline High Cholesterol: 200-239 mg/dL High Cholesterol: greater than 239 mg/dL LDL Cholesterol Calculated 84 <100 mg/dL Desirable LDL: less than 100 mg/dL Near Optimal/Above Optimal LDL: 110-129 mg/dL Borderline High LDL: 130-159 mg/dL High LDL: 160-189 mg/dL Very High LDL: greater than or equal to 190 mg/dL HDL Cholesterol 47 >40 mg/dL Desirable HDL: greater than 40 mg/dL Note: This HDL assay may give artificially low results in patients with liver disease. TSH reflex Free T4 Reviewed date:12/12/2023 12:44:34 PM Interpretation:Normal Performing Lab:[facility], [address] [place] [phone] Notes/Report: TSH reflex Free T4 1.04 0.32-4.0 uIU/mL MRSA Nasal Screen Reviewed date:12/12/2023 02:34:06 PM Interpretation:Negative Performing Lab:[facility], [address] [place] [phone] Notes/Report: MRSA Nasal PCR NEGATIVE Negative SA Nasal PCR NEGATIVE Negative MRSA Interpretation SEE NOTE MRSA target DNA not detected; SA target DNA not detected. A MRSA NEGATIVE, SA NEGATIVE test result does not preclude MRSA or SA nasal colonization. Type and Screen Reviewed date:12/29/2023 09:38:14 AM Interpretation:Negative Performing Lab:[facility], [address] [place] [phone] Notes/Report: Spec expiration changed by TEDDY on 12/28/23 Reason: PAT NURSING: Call Blood Bank (ext. [phone]) to band patient on admission. Type and Screen in effect until 2300 on 01/02/2024. Witnessed by FRANCISCA Blood Type OP Antibody Screen NEGATIVE REASON FOR REFERRAL Reason numbness, right hand , 3rd, 4th, 5th digits Diagnosis 1 Ulnar tunnel syndrom e, right (G56.21) Referral Organization Mike Westbrook O, FACP Referring Provider First Name Mike Referring Provider Last Name Shola Referring Provider Speciality Internal M edicine Referred Provider Margarita Adames Referred Provider Specialty Orthopedic S urgery General Notes Mary Pollard 024 10:28:21 AM EDT > referral faxed; specialist's office will call patient to schedule appointment; patient aware. Referral Priority Routine MEDICATIONS Medication SIG (Take, Route, Frequency, Duration) Notes Start Date End Date Status Tamsulosin HCl 0.4 MG 1 capsule Orally T wice a day Active Escitalopram Oxalate 20 MG 1 tablet Orally Once a day Active Omeprazole 40 MG TAKE 1 CAPSULE BY [facility] EVERY DAY 30 MINUTES BEFORE MORNING MEAL FOR 90 DAYS for 90 Active Methenamine Hippurate 1 GM 1 tablet Oral ly Twice a day Active Diclofenac Sodium 75 MG 1 tablet as need ed Orally Twice a day Active amLODIPine Besylate 5 MG 1 tablet Orally Once a day Active Atorvastatin Calcium 80 MG 1 tablet Oral ly Once a day for 90 days Active Levothyroxine Sodium 125 MCG 1 tablet in the morning on an empty stomach Orally Once a day Active Multivitamins 1 capsule Orally Onc e a day Active Propranolol HCl ER 120 MG 1 capsule Oral ly Once every other day Active Testosterone Enanthate 200 MG/ML 1 mL Intramuscular Once every 2 weeks Active Primidone 50 MG 1 tablet Orally Twic e a day Active Vitamin D 1000 [...] Notes Problem Overweight (E66.3) Active confirmed 238 293438 Problem Generalized anxiety disorder (F41.1) Active confirmed 78150486 Problem Attention deficit disorder (F90.0) Active confirmed 947150344 Problem Acquired hypothyroidism (E03.9) Active confirmed 517772339 Problem Primary osteoarthrit is of left hip (M16.12) Active confirmed 305763484679700 Problem Primary osteoarthrit is of right hip (M16.11) Active confirmed 70186653500783 7 Problem Tremor (R25.1) Active confirmed 7502163 4 Problem Benign prostatic hyperplasia with lower urinary tract symptoms (N40.1) Active confirmed 176365494909411 Problem Hypercholesterolemia (E78.00) Active confirmed 00109635 Problem Conductive hearing loss in right ear (H90.11) Active confirmed 7405759610681 Problem LUQ abdominal pain (R10.12) Active confirmed 176626256 Problem Spinal stenosis of lumbar region with neurogenic claudication (M48.062) Active confirmed 39093512 Problem Ulnar tunnel syndrom e, right (G56.21) Active confirmed 260867687 VITAL SIGNS Blood pressure diastolic 70 mm Hg 12/13/2023 Height 67.00 in 12/13/2023 Blood pressure systolic 130 mm Hg 12/13/2023 Weight 165 lbs 12/13/2023 BMI 25.84 kg/m2 12/13/2023 Encounters Encounter Location Date Provider Diagnosis Mike Jolley DO, [address] [id number] 01/17/2023 Mike Jolley Primary osteoarthrit is of left hip M16.12 ; Generalized anxiety disorder F41.1 ; Attention deficit disorder F90.0 ; Hypercholesterolemia E78.00 ; Acquired hypothyroidism E03.9 ; Tremor R25.1 and Benign prostatic hyperplasia with lower urinary tract symptoms N40.1 Mike Jolley DO [address] [id number] 07/19/2023 Mike Jolley Generalized anxiety disorder F41.1 ; Attention deficit disorder F90.0 ; Hypercholesterolemia E78.00 ; Acquired hypothyroidism E03.9 ; Tremor R25.1 ; Benign prostatic hyperplasia with lower urinary tract symptoms N40.1 ; Ulnar tunnel syndrome, right G56.21 and Primary osteoarthritis of left hip M16.12 Mike Jolley DO, [address] [id number] 12/13/2023 Mike Jolley Primary osteoarthrit is of right hip M16.11 ; Hypercholesterolemia E78.00 ; Tremor R25.1 ; Benign prostatic hyperplasia with lower urinary tract symptoms N40.1 ; Generalized anxiety disorder F41.1 and Acquired hypothyroidism E03.9 Mike Jolley DO, [address] [id number] 01/11/2023 Mike Jolley Generalized anxiety disorder F41.1 and Acquired hypothyroidism E03.9 Mike Jolley DO, [address] [id number] 11/10/2023 Mike Jolley DO, [address] [id number] 12/18/2023 Mike Jolley DO, [address] [id number] 01/16/2023 Mike Jloley ASSESSMENTS Encounter Date Diagnosis Assessment Notes Treatment Notes Treatment Clinical Notes 01/17/2023 Generalized anxiety disorder (ICD-10 - F41.1) 01/17/2023 Primary osteoarthrit is of left hip (ICD-10 - M16.12) Joel is an acceptable candidate for the proposed surgical procedure and is medically cleared for surgery. He is to hold the diclofenac for 1 week prior to surgery 07/19/2023 Generalized anxiety disorder (ICD-10 - F41.1) 07/19/2023 Attention deficit disorder (ICD-10 - F90.0) 12/13/2023 Primary osteoarthrit is of right hip (ICD-10 - M16.11) Joel is an acceptable candidate for the proposed surgical procedure and is medically cleared for surgery, pending a satisfactory electrocardiogram . He was advised to hold the diclofenac for 1 week prior to surgery 12/13/2023 Hypercholesterolemia (ICD-10 - E78.00) 01/11/2023 Generalized anxiety disorder (ICD-10 - F41.1) 01/11/2023 Acquired hypothyroid ism (ICD-10 - E03.9) 01/17/2023 Attention deficit disorder (ICD-10 - F90.0) 07/19/2023 Hypercholesterolemia (ICD-10 - E78.00) 12/13/2023 Tremor (ICD-10 - R25.1) 01/17/2023 Hypercholesterolemia (ICD-10 - E78.00) 07/19/2023 Acquired hypothyroid ism (ICD-10 - E03.9) 12/13/2023 Benign prostatic hyperplasia with lower urinary tract symptoms (ICD-10 - N40.1) 01/17/2023 Acquired hypothyroid ism (ICD-10 - E03.9) 07/19/2023 Tremor (ICD-10 - R25.1) 12/13/2023 Generalized anxiety disorder (ICD-10 - F41.1) 01/17/2023 Tremor (ICD-10 - R25.1) 07/19/2023 Benign prostatic hyperplasia with lower urinary tract symptoms (ICD-10 - N40.1) 12/13/2023 Acquired hypothyroid ism (ICD-10 - E03.9) 01/17/2023 Benign prostatic hyperplasia with lower urinary tract symptoms (ICD-10 - N40.1) 07/19/2023 Ulnar tunnel syndrom e, right (ICD-10 - G56.21) 07/19/2023 Primary osteoarthrit is of left hip (ICD-10 - M16.12) PLAN OF TREATMENT Pending Test Test Name Order Date Electrocardiogram (EKG) 12/13/2023 Next Appt Details Provider Name:Mike jackson, 01/23/2024 11:00:00 AM, [address] [place] [address], [phone], Insurance Providers Payer Name Payer Address Payer Phone Subscriber Number Group Number Insured Name Patient Relationship to Insured Coverage Start Date Coverage End Date MEDICARE [address] [place] [phone] [id number] Joel Stout Self - patient is the insured MEDEX [address] [place] [address] [id number] Joel Stout Self - patient is the [...] Lasik surgery OU lumbar disc surgery 03/2022 left hip replacement 01/2023
--- OUTSIDE RECORDS SUMMARY | 2024-01-02 06:13 | XMS_ITS ---
Author Organization Mike Jolley DO, [facility] Address [address] [place] [phone] Care Team Providers Care Nursery Nurse Name Role Phone Mike Jolley Primary Care Provider Keshawn IQBAL, Lino Unavailable Unavailable REASON FOR VISIT Needs call back from office SOCIAL HISTORY Sex Assigned At : Social History Observation Description Sex Assigned At Male Encounters Encounter Location Date Provider Diagnosis Mike Jolley DO, FACP [address] [place] [phone] 11/10/2023 Mike Jolley PLAN OF TREATMENT Next Appt Details Provider Name:Mike jackson, 01/23/2024 11:00:00 AM, [address] [place] [address], [phone],
[2024-01-02] MEDS: Lactated Ringers 1,000 ML 100 ML IVCONT ×3 (06:28→23:21)
[2024-01-02] MEDS: oxyCODONE HCl ER 10 MG TAB.ER.12H PO ×2 (06:40→19:33)
[2024-01-02 06:45] LABS: Hematocrit 46.3 % (42.0-52.0); Hemoglobin 15.7 g/dl (14.0-18.0)
--- NOTE | 2024-01-02 07:26 | MHC.SHP ---
Pre-Procedural Eval Section A - 24 Hr Update-Section A only Date of Service: 01/02/24 The patient is an INPATIENT: No Changes since office visit: No Cold of Flu in the past 2 weeks, No New Medical Problems, No Changes in Medication and No Patient answered all questions The patient has been examined within 24 hours of the surgical procedure. The History & Physical has been completed within 30 days and I have reviewed it.: Yes Section B - Complete if H&P > 30 days Chief Complaint: RTHA Allergies: Allergies Allergy/AdvReac Type Severity Reaction Status Date / Time adhesive tape [ADHESIVE TAPE] Allergy Intermediate RASH Verified 01/02/24 06:17 cashew nut [CASHEW NUT] Allergy Intermediate SWELLING Verified 01/02/24 06:17 sulfamethoxazole Allergy Intermediate Rash Verified 01/02/24 06:17 [From Bactrim] trimethoprim [From Bactrim] Allergy Intermediate Rash Verified 01/02/24 06:17 PERM HAIR DYE Allergy Severe severe rash Uncoded 01/02/24 06:17 Plan I have reviewed the history and physical and performed a pertinent physical examination on my patient. No changes have occurred unless specified. Time Spent With Patient Time: Total time managing care of this patient today ____ minutes.
[2024-01-02] MEDS: fentaNYL citrate/PF 100 MCG/2 ML VIAL 25 MCG IVPUSH ×8 (09:56→10:39)
--- NOTE | 2024-01-02 11:23 | P.BOP_ITS ---
Brief Operative Note Date of Service: 01/02/24 Pre-op diagnosis: Right hip OA Post-op diagnosis: same Procedure: Right MICKEY Implants: Ricky Trident2 [address] Accolade2 #5 127 with +2.5 36 ceramic Surgeon: Ash Mckinley MD Anesthesia: GETA and local Was an Braid Pattern Setter used for this Procedure?: Yes Braid Pattern Setter: Robe Montoya Estimated blood loss (mL): 200 IV fluids (mL): 1,000 Pathology: other Condition: stable Disposition: PACU
--- NOTE | 2024-01-02 11:27 | P.OP_ITS ---
Operative Note Operative Note Date of Service: 01/02/24 Narrative: Date of Service: 01/02/24 Pre-op diagnosis: Right hip OA Post-op diagnosis: same Procedure: Right MICKEY Implants: [place] Trident2 54 [place] Accolade2 #5 [id number] with +2.5 36 ceramic Surgeon: Ash Mckinley MD Anesthesia: GETA and local Was an Traveling Inventory Associate used for this Procedure?: Yes Traveling Inventory Associate: Robe Montoya Estimated blood loss (mL): 200 IV fluids (mL): 1,000 Pathology: other Condition: stable Disposition: PACU Patient was brought into the operating room and placed in the right lateral decubitus position. All bony prominences were well padded and the limb was prepped and draped in standard sterile fashion. A time-out was called to identify proper site procedure proper surgeon IV antibiotics and 1 g of tranexamic acid were administered. I began by making a curvilinear incision over the posterolateral aspect of the greater trochanter. Dissection was taken down to the tensor fascia which was incised in line with the incision and a Charnley retractor was placed. Cautery was used to maintain hemostasis. The hip was internally rotated and the external rotators were identified. The vessels were cauterized and a full-thickness capsular/external rotator layer was developed starting just proximal to the piriformis. This layer was tagged and a dull Hohmann retractor was placed underneath the neck in the hip was dislocated. A neck cut was made 1 cm proximal to the lesser trochanter and the head and neck were removed and measured 50mm on the back table. The head was eburnated. I then removed the labrum and cauterized the fovea. I started with a 44 reamer and medialized to the inner table. I sequentially reamed up to a size 54 and impacted a 54mm cup at 45 degrees of inclination and 25 degrees of version. I then placed a 20 deg posterior lipped liner and turned my attention to the femur. I identified the piriformis insertion and used this as a starting point for my leann cutter. The medius tendon was protected with a Hibs retractor. A Charnley awl was inserted in the canal and a curved curette used to remove the lateral bone. I irrigated copiously. I then sequentially broached in the patient's natural version to a size 5 and placed my trial implants. I used a #5/127/+2.5 based on my pre-operative template. I removed all instrumentation and copiously irrigated. I placed my final femoral implant and again took the hip through range of motion and was satisfied with the stability and length. The final +2.5 implant was impacted in place and the hip reduced. I then irrigated copiously and placed 1 g of local tranexamic acid. I performed a capsular closure with 2.0 fiberwire, Marcio's fascia with 0 Vicryl, subcuticular with 2-0 Vicryl and the skin with sybil. Patient was placed into a sterile dressing. Patient was extubated brought to the recovery room in stable condition. There were no known complications.
--- NOTE | 2024-01-02 13:33 | PHA.MEDREC ---
Addendum entered by Deann Burch RPh 01/02/24 13:40: due for testosterone on 01/02 and last dose 12/30 reviewed by [facility]. Original Note: Pharmacy Consult ? Medication Reconciliation Pharmacy has completed the medication reconciliation. Confirmed medications with patient and spouse at bedside. Patient confirmed he is not taking the Dextroamphetamine 5mg-Amphetamine 325mg tab anymore and states he quit that cold turkey about 2 months ago. He confirmed he stopped the Diclofenac 75mg tablet about a week ago from the surgery and states his doctor might try another medication when talking about starting it up again. He confirmed he takes Proapnolol 120mg caps every other day and he states he is due for that today as he took his last dose Wednesday 11/29. He also confirmed his Testerone injection every 2 weeks on Wednesdays and states he is due for it tomorrow Saturday 12/02. He confirmed he took all his medications yesterday.
[2024-01-02] MEDS: HYDROmorphone HCl 0.5 MG/0.5 ML SYRINGE 0.25 MG IVPUSH (14:41)
[2024-01-02] MEDS: Hydrocortisone 1 % Cream 28.35 GM TUBE 1 APPL TOPICAL (14:49)
[2024-01-02] MEDS: ceFAZolin Sodium/Dextrose,Iso 2 GM/50 ML PIGGYBACK IV (14:52)
--- NOTE | 2024-01-02 15:00 | P.DS_ITS ---
DS: Providers Provider Date of Service: 01/03/24 Primary care physician: Mike Jolley DO DS: Summary Hospital Course Hospital Course: The patient underwent a successful right total hip arthroplasty, they were t ransferred to PACU and then to the floor to recover. During their stay, their vitals were stable, afebrile at 98.5. Labs were unremarkable, H/H 11.9/36.4. POD 1 they were started on Aspirin 325mg po bid for DVT ppx, they also received Physical Therapy services twice a day. Prior to discharge, their dressing was changed, incision clean dry and intact, new Aquacel dressing applied and the plan was to be discharged home with VNA services. Time Attestation Discharge Coordination Time (in mins): 30 Quality: Safe Use of Opioids Does Pt have an Active Cancer Diagnosis on the Problem List?: No Quality: Stroke Does the patient have a stroke diagnosis?: No Physical Exam Vital Signs: Vital Signs: Last Vital Signs Temp 99 F 01/02/24 11:44 Pulse 88 01/02/24 11:44 Resp 18 01/02/24 11:44 BP 142/72 H 01/02/24 11:44 Pulse Ox 97 01/02/24 11:44 O2 Del Method Room Air 01/02/24 11:44 O2 Flow Rate 6 01/02/24 09:48 BMI result Body Mass Index 25.1 Const: General: cooperative, healthy appearing and no acute distress Resp: Effort & Inspection: normal respiratory effort and able to speak in complete sentences Cardio: Rate: regular rate Peripheral pulses: Peripheral pulses 2+ throughout GI: Palpation (GI): Soft to palpation Skin: Lesions: no lesions Rashes: no rashes Extrem: Other: right hip dressing is c/d/i. Able to dorsi/plantar flex. Calf is supple and nontender. Sensation intact. Pedal pulse intact. DS: Data Data Completed and Pending Completed studies during hospitalization [Text1]: Procedures Replacement of Left Hip Joint with Ceramic Synthetic Substitute, Uncemented, Open Approach (01/31/23) Pending studies at discharge: Pending at discharge 01/02/24 08:22 Surgical [PTH] Routine Labs on day of discharge: Laboratory Results - last 24 hr 01/02/24 06:27 Hgb 15.7 Hct 46.3 Discharge Plan Discharge Patient Disposition: Home, Self-Care Referrals: Robe Montoya PA-C [Physician Boring Machine Set Up Operator Jig] - 01/18/24 9:00 am Discharge Medications: New celecoxib 200 mg Capsule 200 mg PO BID 30 Days Qty: 60 0RF acetaminophen 325 mg Tablet 650 mg PO Q6H PRN (Reason: Pain, Mild (Pain Scale 1-3), fever or headache) 30 Days Qty: 240 0RF aspirin 325 mg Tablet 325 mg PO BID 42 Days Qty: 84 0RF hydromorphone 2 mg Tablet 2 mg PO Q4H PRN (Reason: Pain, Moderate(Pain Scale 4-6)) 7 Days Qty: 42 0RF Rx Instructions: Partial Fill upon patient request. docusate sodium 100 mg Capsule 100 mg PO BID 30 Days Qty: 60 0RF Continued amlodipine 5 mg tablet 5 mg PO DAILY hydrocortisone 1 % Lotion 1 appl TOPICAL DAILY PRN (Reason: Itchy Scalp) escitalopram oxalate [Lexapro] 20 mg tablet 20 mg PO DAILY cholecalciferol (vitamin D3) 25 mcg (1,000 unit) capsule 25 mcg PO DAILY levothyroxine 125 mcg tablet 125 mcg PO DAILY@0600 atorvastatin 80 mg tablet 80 mg PO BEDTIME omeprazole 40 mg capsule,delayed release(DR/EC) 40 mg PO DAILY@0630 testosterone cypionate 200 mg/mL oil 200 mg IM Q2W primidone 50 mg tablet 50 mg PO BID tamsulosin 0.4 mg capsule 0.4 mg PO BID propranolol 120 mg capsule,extended release 24 hr 120 mg PO Q48H methenamine hippurate 1 gram tablet 1 g PO BID multivitamin Tablet 1 tab PO DAILY Discontinued acetaminophen 325 mg tablet 650 mg PO Q6H diclofenac sodium 75 mg tablet,delayed release (DR/EC) 75 mg PO BID PRN (Reason: Pain (Scale Score 1-3)) Discharge Orders: Discharge Order (Routine); Ordered 01/03/24 Ordered By: Pao Tucker Diet: Advance to usual diet Activity on Discharge: Use cane or walker Activity Restrictions/Additional Instructions: Physical Therapy for total hip arthroplasty: posterior precautions, gait training, ROM, strength Limit stair climbing No showering, no tub bath-keep dressing clean, dry and intact No driving x6 weeks Continue ASA tabs once a day x 4 weeks Follow up with [facility] in 2 weeks Print Language: Thai
--- NOTE | 2024-01-02 15:01 | P.F2F_ITS ---
Service Date Service Date: 01/02/24 Encounter Date of encounter: 01/03/24 Reasons for Services Signs and symptoms assessed: s/p RTHA Pt. is considered homebound due to recent surgery. Unable to drive, poor balance, poor gait mechanics. Reason for physical therapy: home safety and mobility, therapeutic exercises, restore joint function, gait/transfer training and ADL training Reason for occupational therapy: home safety and mobility, therapeutic exercises, restore joint function, gait/transfer training and ADL training Homebound: Leaving the home is medically contraindicated at this time without the asist of a device and/or another person due th the listed conditions above and below. Reason homebound: unsteady gait / fall risk, leg weakness, pain with ambulation, pain with transfers, poor balance / fall risk and unable to drive Certification: Based on the above findings, I certify that this patient is confined to the home and needs intermittent penitentiary care, physical therapy and/or speech therapy, or continues to need occupational therapy. The patient is under my care, and I have initiated the establishment of the plan of care. The patient will be followed by a physician who will periodically review the plan of care. Time Spent With Patient Time: Total time managing care of this patient today ____ minutes.
[2024-01-02] MEDS: HYDROmorphone HCl 2 MG TABLET PO (17:14)
[2024-01-02] MEDS: HYDROmorphone HCl 0.5 MG/0.5 ML SYRINGE IVPUSH ×2 (19:26→23:20)
[2024-01-02] MEDS: Acetaminophen 1,000 MG/100 ML PIGGYBACK 400 MG IV (19:31)
[2024-01-02] MEDS: Methenamine Hippurate 1 GM TABLET PO (19:34)
[2024-01-02] MEDS: Tamsulosin HCL 0.4 MG CAPSULE PO (19:34)
[2024-01-02] MEDS: Celecoxib 200 MG CAPSULE PO (19:34)
[2024-01-02] MEDS: Docusate Sodium 100 MG CAPSULE PO (19:34)
[2024-01-02] MEDS: Primidone 50 MG TABLET PO (20:24)
[2024-01-02] MEDS: diphenhydrAMINE HCL 25 MG CAPSULE PO (23:54)
[2024-01-03] MEDS: Acetaminophen 1,000 MG/100 ML PIGGYBACK 400 MG IV ×2 (01:12→06:13)
[2024-01-03 03:04] VITALS: BP 146/67; PULSE 75; RESP 18; TEMP 36.8; O2SAT 94
[2024-01-03] MEDS: HYDROmorphone HCl 0.5 MG/0.5 ML SYRINGE IVPUSH (03:14)
[2024-01-03] MEDS: Omeprazole 40 MG CAPSULE.DR PO (06:13)
[2024-01-03] MEDS: Levothyroxine Sodium 125 MCG TABLET PO (06:13)
[2024-01-03 07:08] LABS: Basophils Percent Auto 0.3 % (0-2); Eosinophils Absolute Auto 0.1 X10*3/uL (0.0-0.4); Eosinophils Percent Auto 0.4 % (0-4); Hematocrit 36.4 % (42.0-52.0); Hemoglobin 11.9 g/dl (14.0-18.0); Imm Gran Abs Auto 0.06 X10*3/uL (0.00-0.03); Imm Gran Pct Auto 0.5 % (0.0-0.4); Lymphocytes Absolute Auto 1.5 X10*3/uL (1.2-4.9); Lymphocytes Percent Auto 12.8 % (20-40); MANUAL DIFF FLAG SCAN; Mean Corpuscular HGB Conc 32.7 g/dl (31.0-36.0); Mean Corpuscular Hemoglobin 31.2 pg (27.0-33.0); Mean Corpuscular Volume 95.5 fL (80.0-98.0); Mean Platelet Volume 10.2 fL (9.4-12.4); Monocytes Absolute Auto 1.6 X10*3/uL (0.1-1.2); Neutrophils Absolute Auto 8.4 x10*3/uL (2.0-8.3); Platelet Count 269 X10*3/uL (160-400); Red Blood Count 3.81 X10*6/uL (4.60-5.80); Red Cell Distribution Width 14.4 % (11.0-16.0); SCAN SMEAR FLAG 1; White Blood Count 11.7 X10*3/uL (4.8-10.8)
[2024-01-03 07:15] LABS: Anion Gap 15 (12-20); Blood Urea Nitrogen 14 mg/dL (9-16); Calcium 9.4 mg/dL (8.4-10.2); Carbon Dioxide 30 mmol/L (22-29); Chloride 99 mmol/L (96-108); Estimated Glomerular Filt Rate > 60; Glucose Fasting 121 mg/dL (60-99); Potassium 5.1 mmol/L (3.3-5.1); Sodium 139 mmol/L (135-145)
[2024-01-03 08:00] VITALS: BP 113/54; PULSE 83; RESP 16; TEMP 36.9; O2SAT 95
--- NOTE | 2024-01-03 08:05 | PM.PNORT ---
Subjective Subjective Date of Service: 01/03/24 Interval history: POD1 s/p RTHA Patient is resting in bed No overnight events Uncontrolled pain reported No additional complaints Physical Exam Vital Signs: Vital Signs: Last Vital Signs Temp 98.2 F 01/03/24 03:04 Pulse 75 01/03/24 03:04 Resp 18 01/03/24 03:04 BP 146/67 H 01/03/24 03:04 Pulse Ox 94 01/03/24 03:04 O2 Del Method Room Air 01/03/24 03:04 O2 Flow Rate 6 01/02/24 09:48 BMI result Body Mass Index 25.1 Const: General: cooperative, healthy appearing and no acute distress Resp: Effort & Inspection: normal respiratory effort and able to speak in complete sentences Cardio: Rate: regular rate Peripheral pulses: Peripheral pulses 2+ throughout GI: Palpation (GI): Soft to palpation Skin: Lesions: no lesions Rashes: no rashes Extrem: Other: rt hip dressing is c/d/i. Able to dorsi/plantar flex. Calf is supple and nontender. Sensation intact. Pedal pulse intact. Procedures Date of Service Date of Service: 01/03/24 Progress Note: A&P Assessment and plan (1) Status post total hip replacement, right: Status: Acute Plan Continue pain mgmnt Begin ASA for dvt ppx begin PT/OT for RTHA Dispo planning- PT, pain mgmnt Time Spent With Patient Time: Total time managing care of this patient today ____ minutes. Quality Stroke Does the patient have a stroke diagnosis?: No VTE Prior VTE?: No VTE Risk Level:: Medical - moderate - high VTE Device Contraindication: N/A - Device Ordered VTE Drug Contraindication: N/A - Med Ordered
[2024-01-03 08:11] LABS: SLIDE REVIEW VERIFIED
--- NOTE | 2024-01-03 08:42 | HO.POSTANES ---
Post Anesthesia Evaluation Post Anesthesia Evaluation Date of Service: 01/02/24 Vital Signs: Vital Signs Temp Pulse Resp BP Pulse Ox O2 Del Method 01/03/24 08:00 98.5 F 83 16 113/54 L 95 Room Air 01/03/24 03:04 98.2 F 75 18 146/67 H 94 Room Air Anesthesia: General Endotracheal-GETA Mental Status: Awake Pain Control: Satisfactory (post surgical pain) Nausea/Vomiting: None Hydration: Adequate Anesthesia-Related Issues: No Anes. Related Issues
[2024-01-03] MEDS: Aspirin 325 MG TABLET PO (08:46)
[2024-01-03] MEDS: Propranolol HCL LA 60 MG CAP.SA.24H 120 MG PO (08:47)
[2024-01-03] MEDS: Tamsulosin HCL 0.4 MG CAPSULE PO (08:48)
[2024-01-03] MEDS: Celecoxib 200 MG CAPSULE PO (08:48)
[2024-01-03] MEDS: oxyCODONE HCl ER 10 MG TAB.ER.12H PO (08:48)
[2024-01-03] MEDS: Methenamine Hippurate 1 GM TABLET PO (08:49)
[2024-01-03] MEDS: Escitalopram Oxalate 20 MG TABLET PO (08:50)
[2024-01-03] MEDS: Primidone 50 MG TABLET PO (08:50)
[2024-01-03] MEDS: Docusate Sodium 100 MG CAPSULE PO (08:51)
[2024-01-03] MEDS: 0.9 % Sodium Chloride Flush 3 ML SYRINGE IVFLUSH (09:08)
--- NOTE | 2024-01-03 10:46 | MHC.CM.PN ---
pt dcd with hvns
[2024-01-03] MEDS: HYDROmorphone HCl 2 MG TABLET PO (11:21)
== END 2024-01-03 11:51 | disposition home health service (06) ==
LOC: HO.SSS 10:09 → HO.S3 10:09
PROVIDERS: Physician Assistant; PCP Internal Medicine; Visit Provider Orthopaedic Surgery
PROC: (CPT 27130; principal; 2024-01-02 07:30)
DX: M16.11 Unilateral primary osteoarthritis, right hip (principal); M25.551 Pain in right hip; M25.451 Effusion, right hip; M65.88 Other synovitis and tenosynovitis, other site; R26.9 Unspecified abnormalities of gait and mobility; R26.81 Unsteadiness on feet; I10 Essential (primary) hypertension; J45.909 Unspecified asthma, uncomplicated; G24.01 Drug induced subacute dyskinesia; Z85.47 Personal history of malignant neoplasm of testis; D75.1 Secondary polycythemia; L23.1 Allergic contact dermatitis due to adhesives; Z88.2 Allergy status to sulfonamides; Z96.642 Presence of left artificial hip joint; Z98.890 Other specified postprocedural states
CPT/HCPCS: 27130; 36415; 72170; 80048; 85014; 85018; 85025; 86850; 86900; 86901; 87640; 87641; 88304; 88305; 88311; 97116; 97161; 97165; C1776; J0131; J0690; J1100; J1171; J2003; J2405; J2704; J2795; J3010; J7120

== ENCOUNTER → 2024-01-02 09:46 | Outpatient (BNV) | payer MEDICARE, SELFPAY | PROVIDERS: PCP Internal Medicine; Visit Provider Orthopaedic Surgery | DX: Z47.1 Aftercare following joint replacement surgery (principal); Z96.641 Presence of right artificial hip joint | CPT/HCPCS: 27130; 99024; G0180 ==

== ENCOUNTER → 2024-01-02 09:46 | Outpatient (BNV) | payer MEDICARE, SELFPAY | PROVIDERS: PCP Internal Medicine; Visit Provider Radiology Diagnostic Radiology | DX: Z96.641 Presence of right artificial hip joint (principal) | CPT/HCPCS: 72170 ==

== ENCOUNTER 2024-01-18 08:54 | Outpatient (AMB) | payer MEDICARE, SELFPAY ==
--- NOTE | 2024-01-18 09:03 | A.OFFVIS_ITS ---
Intake Visit Reasons: 2WK PO: R MICKEY w/NE 01/02/24 Intake Note: Dejon 78 year old male who presents today for a post operative visit of RT MICKEY, DOS: 01/02/24 NE. Patient reports he is doing well, states being able to walk without pain. He continues to work with at home therapy and believes he has one session left. Allergies adhesive tape [ADHESIVE TAPE] Allergy (Intermediate, Verified 01/18/24 09:08) RASH cashew nut [CASHEW NUT] Allergy (Intermediate, Verified 01/18/24 09:08) SWELLING sulfamethoxazole [From Bactrim] Allergy (Intermediate, Verified 01/18/24 09:08) Rash trimethoprim [From Bactrim] Allergy (Intermediate, Verified 01/18/24 09:08) Rash PERM HAIR DYE Allergy (Severe, Uncoded 01/18/24 09:08) severe rash Medication List - Last Reconciled 01/18/24 by Robe Montoya PA-C acetaminophen 650 mg (2 x 325 mg) PO Q6H PRN 30 days amlodipine 5 mg PO DAILY aspirin 325 mg PO BID 42 days atorvastatin 80 mg PO BEDTIME celecoxib 200 mg PO BID 30 days cholecalciferol (vitamin D3) 25 mcg PO DAILY docusate sodium 100 mg PO BID 30 days escitalopram oxalate (Lexapro) 20 mg PO DAILY hydrocortisone 1% 1 appl topical DAILY PRN hydromorphone 2 mg PO Q4H PRN 7 days levothyroxine 125 mcg PO DAILY@0600 methenamine hippurate 1 g PO BID multivitamin 1 tab PO DAILY omeprazole 40 mg PO DAILY@0630 primidone 50 mg PO BID propranolol ER 120 mg PO Q48H tamsulosin 0.4 mg PO BID testosterone cypionate 200 mg IM Q2W HPI HPI 2WK PO: R MICKEY w/NE 01/02/24: Details: 78-year-old gentleman returns to the office today status post right total hip arthroplasty with Dr. Mckinley on 01/02/2024. He continues to work with physical therapy at home. He has no concerns today. [facility] Medical History History of recurrent UTIs Incomplete bladder emptying BPH loc w urin obs/LUTS ADD (attention deficit disorder) Enlarged prostate Hyperkalemia Tardive dyskinesia Hard of hearing Hypothyroid Depression Polycythemia Osteoarthritis HTN (hypertension) Asthma Testicular cancer Surgical History History of total left hip arthroplasty Hx of unilateral orchiectomy Hx of excision of mass H/O colonoscopy History of cholecystectomy History of back surgery History of right knee surgery History of left knee surgery History of intestinal surgery Family History Father Clogged artery (heart) Mother Cardiac disease Social History Household Members: None Housing: House Are you a primary family day care worker to a significant other at home: No Do you presently have visiting nurse or other home services: No Alcohol intake: current Alcohol intake frequency: a few times a week Alcohol type: beer Patient Tobacco Use Status: Never used Tobacco Substance Use Type: Marijuana Advance Directives Date on File: 02/03/23 service: No Review of Systems Const All systems reviewed & are unremarkable except as noted in HPI and below Physical Exam Extrem Other: Right hip incision is clean dry and intact. No erythema. Mild swelling. No ecchymosis. Has good range of motion and hip flexion without pain. Calf supple nontender. Neurovascularly intact. Assessment & Plan Assessment & Plan (1) Status post total hip replacement, right: Code(s): Z96.641 - Presence of right artificial hip joint Category: Surgical Plan: Wing removed today Steri-Strips applied. He will continue to work with home physical therapy and then transition to outpatient therapy if needed. He does feel quite comfortable with his exercises as this is his 2nd joint replacement. He is familiar with his hip precautions. At this time he does not need a refill of pain medication. He will see us back in [address] Mckinley on February 07, sooner if needed. Coding Level of Care Code Global (43513) Diagnoses Status post total hip replacement, right Z96.641
== END 2024-01-18 09:24 | disposition home or self-care (01) ==
PROVIDERS: PCP Internal Medicine; Visit Provider Physician Assistant
DX: Z96.641 Presence of right artificial hip joint (principal)
CPT/HCPCS: 99024

== ENCOUNTER → 2024-01-18 08:54 | Outpatient (BNVA) | payer MEDICARE, SELFPAY | PROVIDERS: PCP Internal Medicine; Visit Provider Physician Assistant | DX: Z47.1 Aftercare following joint replacement surgery (principal); Z96.641 Presence of right artificial hip joint | CPT/HCPCS: 99212 ==

== ENCOUNTER 2024-02-08 09:10 | Outpatient (AMB) | payer MEDICARE, SELFPAY ==
--- NOTE | 2024-02-08 09:11 | A.OFFVIS_ITS ---
Vital Signs 02/08/24 09:18 Height 5 ft 7 in Weight 165 lb BMI 25.8 Intake Visit Reasons: 6WK PO: R MICKEY w/NE 01/02/24 Intake Note: Girish is a 78 year old male who presents today for a post operative appointment s/p Right MICKEY 01/02/24. Xrays updated today in office. Patient reports that he is doing very well. he is not taking anything for pain as he is not having any. He has some felling of imbalance with walking but he thinks that this is due to walking normal again. Allergies adhesive tape [ADHESIVE TAPE] Allergy (Intermediate, Verified 02/08/24 09:11) RASH cashew nut [CASHEW NUT] Allergy (Intermediate, Verified 02/08/24 09:11) SWELLING sulfamethoxazole [From Bactrim] Allergy (Intermediate, Verified 02/08/24 09:11) Rash trimethoprim [From Bactrim] Allergy (Intermediate, Verified 02/08/24 09:11) Rash PERM HAIR DYE Allergy (Severe, Uncoded 02/08/24 09:11) severe rash HPI HPI 6WK PO: R MICKEY w/NE 01/02/24: Details: Girish is a 78 year old male who presents today for a post operative appointment s/p Right MICKEY 01/02/24. Xrays updated today in office. Patient reports that he is doing very well. he is not taking anything for pain as he is not having any. He has some felling of imbalance with walking but he thinks that this is due to walking normal again. Six weeks status post right hip replacement. [facility] Medical History (Updated 01/05/24 @ 00:02 by Hans Zamora) History of recurrent UTIs Incomplete bladder emptying BPH loc w urin obs/LUTS ADD (attention deficit disorder) Enlarged prostate Hyperkalemia Tardive dyskinesia Hard of hearing Hypothyroid Depression Polycythemia Osteoarthritis HTN (hypertension) Asthma Testicular cancer Surgical History (Updated 02/07/24 @ 13:27 by Tihsa Ramirez [facility]) Status post total hip replacement, 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) History of total left hip arthroplasty (01/31/23) Hx of unilateral orchiectomy Hx of excision of mass H/O colonoscopy History of cholecystectomy History of back surgery History of right knee surgery History of left knee surgery History of intestinal surgery Family History Father Clogged artery (heart) Mother Cardiac disease Social History Household Members: None Housing: House Are you a primary grounds caretaker to a significant other at home: No Do you presently have visiting nurse or other home services: No Alcohol intake: current Alcohol intake frequency: a few times a week Alcohol type: beer Patient Tobacco Use Status: Never used Tobacco Substance Use Type: Marijuana Advance Directives Date on File: 02/03/23 service: No Physical Exam Vital Signs: BMI result Body Mass Index 25.8 Extrem Other: Walking only. No discomfort. No pain with hip range motion. Results Reviewed Results Reviewed: I personally reviewed relevant radiographs. Bilateral MICKEY in expected post operative position with no hardware complications or evidence of loosening Assessment & Plan Assessment & Plan (1) Status post total hip replacement, right: Onset Date: 01/02/24 Comment: Dr. Ash Mckinley Code(s): Z96.641 - Presence of right artificial hip joint Category: Surgical Plan: Six weeks status post right hip replacement. He is doing well. May continue his exercising. And may resume normal activity. Follow up in he 6 weeks Orders: Orders XR pelvis 1-2V Today M25.559 - Pain in unspecified hip Coding Level of Care Code Global (81172) Diagnoses Status post total hip replacement, right Z96.641
[2024-02-08 09:18] VITALS: BMI 25.8
== END 2024-02-08 09:31 | disposition home or self-care (01) ==
PROVIDERS: PCP Internal Medicine; Visit Provider Orthopaedic Surgery
DX: Z96.641 Presence of right artificial hip joint (principal)
CPT/HCPCS: 99024

== ENCOUNTER 2024-02-08 10:26 | Outpatient (REF) | payer MEDICARE, SELFPAY | END 2024-02-08 10:27 | disposition home or self-care (01) | LOC: HO.HOSX 10:26 | PROVIDERS: Visit Provider Orthopaedic Surgery | DX: M25.559 Pain in unspecified hip (principal); Z96.643 Presence of artificial hip joint, bilateral | CPT/HCPCS: 72170; 99212 ==

== ENCOUNTER 2024-03-21 10:38 | Outpatient (AMB) | payer MEDICARE, SELFPAY ==
--- NOTE | 2024-03-21 10:39 | MHC.OFFVIS ---
Intake Visit Reasons: TELE - R MICKEY w/NE 01/02/24 Intake Note: Joel is a 79 year old male who presents today VIA telephone for a two month post operative visit s/p Right MICKEY 01/02/24. Patient reports that he is doing great! He mentions that he is having some balance issues, feeling off kilter - he does not think that this is in relation to the hip Allergies adhesive tape [ADHESIVE TAPE] Allergy (Intermediate, Verified 02/08/24 09:11) RASH cashew nut [CASHEW NUT] Allergy (Intermediate, Verified 02/08/24 09:11) SWELLING sulfamethoxazole [From Bactrim] Allergy (Intermediate, Verified 02/08/24 09:11) Rash trimethoprim [From Bactrim] Allergy (Intermediate, Verified 02/08/24 09:11) Rash PERM HAIR DYE Allergy (Severe, Uncoded 02/08/24 09:11) severe rash HPI HPI TELE - R MICKEY w/NE 01/02/24: Details: Joel is a 79 year old male who presents today VIA telephone for a two month post operative visit s/p Right MICKEY 01/02/24. Patient reports that he is doing great! He mentions that he is having some balance issues, feeling off kilter - he does not think that this is in relation to the hip. He describes his pain is gone. He states he was not dizzy for several weeks after surgery but as he has been getting up more and more he feels some slight dizziness. He has seen his primary care about this. [facility] Medical History (Updated 01/05/24 @ 00:02 by Hans Zamora) History of recurrent UTIs Incomplete bladder emptying BPH loc w urin obs/LUTS ADD (attention deficit disorder) Enlarged prostate Hyperkalemia Tardive dyskinesia Hard of hearing Hypothyroid Depression Polycythemia Osteoarthritis HTN (hypertension) Asthma Testicular cancer Surgical History (Updated 02/07/24 @ 13:27 by Tisha Ramirez CMA) Status post total hip replacement, 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) History of total left hip arthroplasty (01/31/23) Hx of unilateral orchiectomy Hx of excision of mass H/O colonoscopy History of cholecystectomy History of back surgery History of right knee surgery History of left knee surgery History of intestinal surgery Family History Father Clogged artery (heart) Mother Cardiac disease Social History Household Members: None Housing: House Are you a primary rn wound care to a significant other at home: No Do you presently have visiting nurse or other home services: No Alcohol intake: current Alcohol intake frequency: a few times a week Alcohol type: beer Patient Tobacco Use Status: Never used Tobacco Substance Use Type: Marijuana Advance Directives Date on File: 02/03/23 service: No Telehealth Telehealth Telehealth Platform: Telephone Location of provider rendering services: practice address Location of patient: address on file Patient Identification confirmed using: Name, : Yes Telehealth method: voice only Patient verbally consented to treatment: Yes Patient verbally consented to billing insurance company: Yes Patient informed of any privacy concerns related to visit: Yes Minutes spent on Phone/Video with Pt.: 10 Assessment & Plan Assessment & Plan (1) Status post total hip replacement, right: Onset Date: 01/02/24 Comment: Dr. Ash Mckinley Code(s): Z96.641 - Presence of right artificial hip joint Category: Surgical Plan: Almost 3 months status post right hip replacement doing well. No complaints. He may follow up in approximately 9-12 months. Discussed dental prophylaxis. Coding Level of Care Code Global (69251) Diagnoses Status post total hip replacement, right Z96.641
== END 2024-03-21 10:52 | disposition home or self-care (01) ==
LOC: HO.HOS 10:38
PROVIDERS: PCP Internal Medicine; Visit Provider Orthopaedic Surgery
DX: Z96.641 Presence of right artificial hip joint (principal)
CPT/HCPCS: 99024

== ENCOUNTER → 2024-03-21 10:38 | Outpatient (BNVA) | payer MEDICARE, SELFPAY | PROVIDERS: PCP Internal Medicine; Visit Provider Orthopaedic Surgery | DX: Z47.1 Aftercare following joint replacement surgery (principal); Z96.641 Presence of right artificial hip joint | CPT/HCPCS: 99212 ==

== ENCOUNTER 2024-03-26 10:25 | Outpatient (AMB) | payer MEDICARE, SELFPAY ==
--- NOTE | 2024-03-26 11:15 | MHC.PC.OV ---
Intake Visit Reasons: 2 month follow up Allergies adhesive tape [ADHESIVE TAPE] Allergy (Intermediate, Verified 03/26/24 13:46) RASH cashew nut [CASHEW NUT] Allergy (Intermediate, Verified 03/26/24 13:46) SWELLING sulfamethoxazole [From Bactrim] Allergy (Intermediate, Verified 03/26/24 13:46) Rash trimethoprim [From Bactrim] Allergy (Intermediate, Verified 03/26/24 13:46) Rash PERM HAIR DYE Allergy (Severe, Uncoded 03/26/24 13:46) severe rash Medication List - Last Reconciled 03/26/24 by Nayely Donis PA-C acetaminophen 650 mg (2 x 325 mg) PO Q6H PRN 30 days amlodipine 5 mg PO DAILY aspirin 325 mg PO BID 42 days atorvastatin 80 mg PO BEDTIME celecoxib 200 mg PO BID 30 days cholecalciferol (vitamin D3) 25 mcg PO DAILY docusate sodium 100 mg PO BID 30 days escitalopram oxalate (Lexapro) 20 mg PO DAILY hydrocortisone 1% 1 appl topical DAILY PRN hydromorphone 2 mg PO Q4H PRN 7 days levothyroxine 125 mcg PO DAILY@0600 methenamine hippurate 1 g PO BID multivitamin 1 tab PO DAILY omeprazole 40 mg PO DAILY@0630 primidone 50 mg PO TID propranolol ER 120 mg PO Q24H tamsulosin 0.4 mg PO BID testosterone cypionate 200 mg IM Q2W HPI 2 month follow up HPI Details This is a 79-year-old male with a past medical history anxiety disorder, depression, ADD, testicular cancer being followed by Urology, hypotestosteronism, hypothyroidism, spinal stenosis, intestinal blockage, BPH, hypercholesterolemia, dermatitis, right breast mass, dyspnea on exertion and tremors to head, arms and bilateral lower extremities who is presenting to the clinic for 2 month follow-up for his chronic medical conditions. Patient reports for her is anxiety, depression ADD he is currently on citalopram, sertraline, alprazolam and Adderall. He reports he feels like this is under controlled and denies any psych related complaints at this time. He reports he follows up with the mason liner Dr. Mayberry on 04/01/2024. Patient reports he has an appointment with Dr. Morgan neurologist tomorrow due to his tremors he had recently EEGs and MRI of the brain. Patient reports he is being followed by Urology and will be seeing Dr. Mccoy tomorrow at an appointment due to possible recurrent cancer possibly in the prostate per the patient. They are not completely certain at this time per the patient. Patient reports he is also being followed by cardiology and has an appointment with Dr. Stuart tomorrow. Patient denies any cardiac related complaints at this time. For the patient's hypercholesterolemia he is currently on atorvastatin taking as prescribed and denies any complaints related to this. For the patient's acquired hypothyroidism he is currently on levothyroxine and vitamin-D supplements. Denies any thyroid related complaints. For the patient's tremors he is currently on propranolol 100 mg daily and Primidone. He reports he is taking as prescribed although no changes in his tremors and it is making it difficult to do ADLs at home due to this. He does report he has an aide who comes 3 times a week. For the patient's BPH he is currently on amlodipine, tamsulosin and methenamine. Taking as prescribed denies any urinary complaints at this time. Reports he is urinating well at this time. For the patient's GERD he is currently on omeprazole. Due to history of testicular cancer in the past patient is currently on testosterone injections. Patient is also on a multivitamin every day. Patient denies any additional complaints or concerns at this time. 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) History of total left hip arthroplasty (01/31/23) Hx of unilateral orchiectomy Hx of excision of mass H/O colonoscopy (~06/27/23) History of cholecystectomy History of back surgery History of right knee surgery History of left knee surgery History of intestinal surgery Family History Father Clogged artery (heart) Mother Cardiac disease Social History Household Members: None Housing: House Are you a primary insurance healthcare representative to a significant other at home: No Do you presently have visiting nurse or other home services: No Alcohol intake: current Alcohol intake frequency: a few times a week Alcohol type: beer Patient Tobacco Use Status: Never used Tobacco Substance Use Type: Marijuana Advance Directives Date on File: 02/03/23 service: No Questionnaire Thrive Questionnaire Date Thrive assessed: 01/03/24 Physical exam (Primary Care) Care Plan Goal for BP management: <130/80 at goal today Tobacco/Smoking Status: Tobacco use Status Patient Tobacco Use Status Never used Tobacco 03/26/24 11:16 Thrive Assessment: Date of Thrive Assessment Date Thrive assessed 01/03/24 03/26/24 11:16 Const Other: Appearance: Alert. Oriented X3. No acute distress. Head: Normal external exam. Normocephalic. Atraumatic. Eyes: Conjunctiva and sclera normal. Eyelids normal. ENT: MMM. Normal voice. Neck: Normal inspection. Neck supple. FROM. No adenopathy. Thyroid Normal. No meningeal signs. No neck mass noted. CVS: Normal heart rate and rhythm. Heart sound normal. Pulses normal throughout. No murmurs/rales/gallops. Respiratory: No respiratory distress. Painless inspiration. Breath sounds normal. No wheezes/rales/rhonchi noted. Chest nontender. No crepitus is noted. No accessory muscle usage noted or decreased air movement noted. No signs of trauma. Abdomen: Soft and nontender. Nondistended. No guarding. No rigidity. Bowel sounds normal in all 4 quadrants. No distention noted. No organomegaly noted. No visible injury noted. No rebound tenderness. Back: Full range of motion noted. Skin: Skin warm and dry. Normal skin color. Normal skin turgor. No rashes/lesions/lacerations noted. Extremities: No lower extremity edema. No calf tenderness is noted. Extremities exhibit normal range of motion and nontender. Neuro: Oriented X 3. Moving all extremities. Normal steady gait. No focal neuro deficits noted. Vascular: + radial pulses b/l. Normal cap refill. No cyanosis noted. Coding Level of Care Code Est Pt Level 4 (99404) Complex EM visit Add On G2211 Diagnoses Anxiety disorder F41.9 ADD (attention deficit disorder) F98.8 Depression F32.A Hypotestosteronism E34.9 Testicular cancer C62.90 HTN (hypertension) I10 BPH loc w urin obs/LUTS N40.1 Hypothyroid E03.9 Mild hypercholesterolemia E78.00 Tremor R25.1 Assessment & Plan Assessment & Plan (1) Anxiety disorder: Code(s): F41.9 - Anxiety disorder, unspecified Category: Medical Plan: Continue citalopram, sertraline, alprazolam and Adderall. Condition is chronic and stable continue to monitor. (2) ADD (attention deficit disorder): Comment: previously on adderal-no longer taking Code(s): F98.8 - Other specified behavioral and emotional disorders with onset usually occurring in childhood and adolescence Category: Medical Plan: Continue citalopram, sertraline, alprazolam and Adderall. Condition is chronic and stable continue to monitor. (3) Depression: Code(s): F32.A - Depression, unspecified Category: Medical Plan: Continue citalopram, sertraline, alprazolam and Adderall. Condition is chronic and stable continue to monitor. (4) Hypotestosteronism: Code(s): E34.9 - Endocrine disorder, unspecified Category: Medical Plan: Continue testosterone injections. Condition is chronic and stable. (5) Testicular cancer: Comment: w/orchiectomy on chronic testosterone injections Code(s): C62.90 - Malignant neoplasm of unspecified testis, unspecified whether descended or undescended Category: Medical Plan: Continuing following up with urology with testosterone injections. Condition is chronic and stable. (6) HTN (hypertension): Comment: follows w/[facility]-cardiac cath 2020-no significant CAD Code(s): I10 - Essential (primary) hypertension Category: Medical Plan: Continue amlodipine 5 mg daily. Condition is chronic and stable continue to monitor. (7) BPH loc w urin obs/LUTS: Code(s): N40.1 - Benign prostatic hyperplasia with lower urinary tract symptoms Category: Medical Plan: Continue being followed by Urology. Continue tamsulosin as prescribed 0.5 mg twice daily. Condition is chronic and stable will continue to monitor. (8) Hypothyroid: Code(s): E03.9 - Hypothyroidism, unspecified Category: Medical Plan: Continue levothyroxine 125 mcg once in the morning on an empty stomach daily. Condition is chronic and stable will continue to monitor. (9) Mild hypercholesterolemia: Code(s): E78.00 - Pure hypercholesterolemia, unspecified Category: Medical Plan: Continue atorvastatin 80 mg once daily. Condition is chronic and stable continue to monitor. (10) Tremor: Code(s): R25.1 - Tremor, unspecified Category: Medical Plan: Continue being followed by Neurology and continue current medications. Condition is chronic and stable continue to monitor. Plan Patient to continue all prior labs. Patient to follow-up with cardiology as scheduled tomorrow with Dr. Nik ford. Patient to follow-up with Neurology Dr. Morgan as scheduled and to call to see if there is a sooner appointment. Patient to follow-up with Dr. Mccoy the urologist regarding his possible prostate cancer. Patient to return in 2 weeks for ongoing evaluation and management of chronic conditions
--- OUTSIDE RECORDS SUMMARY | 2024-03-26 11:26 | XMS_ITS ---
Author Organization Mike Jolley DO, [facility] Address [address] [place], [place] [id number] Care Team Providers Care Biometrics Analyst Name Role Phone Mike Jolley Primary Care Provider Keshawn IQBAL, Lino Unavailable Unavailable REASON FOR VISIT Message SOCIAL HISTORY Sex Assigned At : Social History Observation Description Sex Assigned At Male Encounters Encounter Location Date Provider Diagnosis Mike Jolley DO, FACP [address] [place] [phone] 12/18/2023 Mike Jolley PLAN OF TREATMENT No Information
--- OUTSIDE RECORDS SUMMARY | 2024-03-26 11:26 | XMS_ITS ---
Author Organization [facility] Address [address] [place] [address] Care Team Providers Care Regrader Name Role Phone Shola (RETIRED) Mike EAST Primary Care Provid er Unavailable Ramone Teixeira Jr Unavailable REASON FOR VISIT screening,hx polyps Encounters Encounter Location Date Provider Diagnosis [facility] Outpatient [address] [place] [phone] 06/27/2023 Ramone Teixeira Jr Encounter for screening [...]
--- OUTSIDE RECORDS SUMMARY | 2024-03-26 11:26 | XMS_ITS | Patient Health Record ---
Author Organization [facility] Address [address] [place] [address] Care Team Providers Care Theology Teacher Name Role Phone Shola (RETIRED) Mike EAST Primary Care Provid er Unavailable Ramone Teixeira Jr Unavailable ALLERGIES Allergen (clinical drug ingredient) Drug/Non Drug Allergy documented on EMR Reaction Allergy Type Onset Date Status cashews and permenan t hair dye (uncoded) Unknown Allergy Active RESULTS Component Value Reference Range Notes Pathology Reviewed date:06/29/2023 11:23:39 AM Interpretation: Performing Lab:[facility], [address] [place] [phone] Notes/Report: Complete Blood Count Auto Di ff Reviewed date:09/25/2023 04:22:59 PM Interpretation: Performing Lab:[facility], [address] [place] [phone] Notes/Report: White Blood Count 8.7 4.8-10.8 X10*3/uL [...] Panel Reviewed date:09/25/2023 04:22:53 PM Interpretation: Performing Lab:[facility], [address] [place] [phone] Notes/Report: Bilirubin Total 0.6 0.0-1.0 mg/dL Bilirubin Direct 0.2 0.0-0.5 mg/dL Slight Hem olysis Aspartate Amino Transferase 33 5-37 U/L Slight Hemolysis Alanine Aminotransferase 16 0-40 U/L Total Protein 8.4 6.5-8.0 g/dL Albumin Level 4.4 3.5-5.0 g/dL Alkaline Phosphatase 99 39-117 U/L Lipase Reviewed date:09/25/2023 04:22:44 PM Interpretation: Performing Lab:[facility], [address] [place] [phone] Notes/Report: Lipase 12 8-78 U/L XR abdomen min 2V Reviewed date:09/25/2023 08:55:33 PM Interpretation: Performing Lab: Notes/Report: [address] [address] XRay Report Signed Patient: Jefry Bojorquez MR#: [id number] 6 : 1945 Acct:[id number] Age/Sex: 78 / M ADM Date: 09/25/23 Loc: HO.XRAY Attending Dr: Ramone Teixeira MD Ordering Physician: Ramone Teixeira MD Date of Service: 09/25/23 Procedure(s): XR abdomen min 2V Accession Number(s): [id number] cc: Ramone Teixeira MD; Mike Jolley DO [...] in OV> 09/25/23 1641 DD/ 1454 TD/TT: Commercial Litigation Paralegal: SS REASON FOR REFERRAL No Information MEDICATIONS [...] Problem Hypertension, unspecified type (I10) Active confirmed 78645721 Problem Constipation, unspecified constipation type (K59.00) Active confirmed 81952872 Problem Colon cancer screening (Z12.11) Active confirmed 186742666 Problem Personal history of colonic polyps (Z86.010) Active confirmed 377347295 Problem Encounter for long-term (current) use of NSAIDs (Z79.1) Active confirmed 204282081 Problem Generalized abdominal pain (R10.84) Active confirmed 164122823 VITAL SIGNS Temperature 97.7 degrees Fahrenheit 04/19/2023 Blood pressure diastolic 00 mm Hg 04/19/2023 Height 68 in 04/19/2023 Blood pressure systolic 000 mm Hg 04/19/2023 Weight 162 lbs 04/19/2023 BMI 24.63 kg/m2 04/19/2023 Encounters Encounter Location Date Provider Diagnosis [facility] [place] [address], [place] [phone] 06/27/2023 Ramone Teixeira Jr Encounter for screening colonoscopy Z12.11 ; Personal history of colonic polyps Z86.010 and Colon polyps K63.5 [facility] [address] [place] [phone] 04/19/2023 Ramone Teixeira Jr Colon cancer screening Z12.11 ; Encounter for long-term (current) use of NSAIDs Z79.1 and Personal history of colonic polyps Z86.010 [facility] [address] [place] [phone] 06/29/2023 Ramone Teixeira Jr [facility] [address] [place] [address] [place] [phone] 09/25/2023 Ramone Teixeira Jr Generalized abdominal pain [...] Start Date Coverage End Date MEDICARE OF [place] [address] [place] [address] [id number] JEFRY BOJORQUEZ Self - patient is the insured [employer] CLAIMS [address] [place] [address] [phone] [id number] JEFRY BOJORQUEZ Self - patient is the [...]
--- OUTSIDE RECORDS SUMMARY | 2024-03-26 11:26 | XMS_ITS ---
Author Organization [facility] Address [address] [place] [address] Care Team Providers Care Material Clerk Name Role Phone Shola (RETIRED) Mike EAST Primary Care Provid er Unavailable Ramone Teixeira Jr Unavailable REASON FOR VISIT feels like he has a blockage PROBLEMS Problem Type ICD Code Onset Dates Problem Status W/U Status Risk SNOMED Code Notes Problem Generalized abdominal pain (R10.84) Active confirmed [id number] Encounters Encounter Location Date Provider Diagnosis [facility] [address] [place] [address] 09/25/2023 Ramone Teixeira Jr Generalized abdominal pain R10.84 ASSESSMENTS Encounter Date Diagnosis Assessment Notes Treatment Notes Treatment Clinical Notes 09/25/2023 Generalized abdominal pain (ICD-10 - R10.84) PLAN OF TREATMENT Pending Test Test Name Order Date LIVER PROFILE 09/25/2023 LIPASE 09/25/2023 CBC w/o DIFF 09/25/2023 XR abdomen 3V 09/25/2023
--- OUTSIDE RECORDS SUMMARY | 2024-03-26 11:26 | XMS_ITS ---
Author Organization Mike Jolley DO, [facility] Address [address] [place], [place] [phone] Care Team Providers Care Mine Engineer Name Role Phone Mike Jolley Primary Care Provider [phone] Keshawn IQBAL, Lino Unavailable Unavailable REASON FOR VISIT 2 month f/u SOCIAL HISTORY Sex Assigned At : Social History Observation Description Sex Assigned At Male Encounters Encounter Location Date Provider Diagnosis Mike Jolley DO, FACP [address] [place] [phone] 03/26/2024 Mike Jolley PLAN OF TREATMENT No Information
--- OUTSIDE RECORDS SUMMARY | 2024-03-26 11:26 | XMS_ITS ---
Author Organization Mike Jolley DO, [facility] Address [address] [place], [place] [id number] Care Team Providers Care Clam Sorter Name Role Phone Mike Jolley Primary Care Provider Keshawn IQBAL, Lino Unavailable Unavailable ALLERGIES Allergen (clinical drug ingredient) Drug/Non Drug Allergy documented on EMR Reaction Allergy Type Onset Date Status sulfamethoxazole / trimethoprim Bactrim DS skin sores, itch Drug Allergy Active REASON FOR VISIT 6 month f/u, Follow up anxiety disorder MEDICATIONS Medication SIG (Take, Route, Frequency, Duration) Notes Start Date End Date Status Testosterone Enanthate 200 MG/ML 1 mL Intramuscular Once every 2 weeks Active Methenamine Hippurate 1 GM 1 tablet Oral ly Twice a day Active Escitalopram Oxalate 20 MG 1 tablet Orally Once a day Active Vitamin D 1000 UNIT 1 capsule Orally Onc e a day 10/20/2014 Active Multivitamins 1 capsule Orally Onc e a day Active Omeprazole 40 MG 1 capsule 1/2 to 1 h our before morning meal Orally Once a day Active Propranolol HCl ER 120 MG 1 capsule Oral ly Once a day Active Primidone 50 MG 1 tablet Orally Thre e times a day Active Tamsulosin HCl 0.4 MG 1 capsule Orally T wice a day Active Levothyroxine Sodium 125 MCG 1 tablet in the morning on an empty stomach Orally Once a day Active amLODIPine Besylate [...] Never (0 point) Points 3 Interpretation Negative VITAL SIGNS BMI 26.31 kg/m2 01/23/2024 Blood pressure systolic 130 mm Hg 01/23/20 24 Blood pressure diastolic 64 mm Hg 024 Height 67.00 in 01/23/2024 Weight 168 lbs 01/23/2024 Encounters Encounter Location Date Provider Diagnosis Mike Jolley DO, [address] [phone] 01/23/2024 Mike Jolley Hypercholesterolemia E78.00 ; Generalized anxiety disorder F41.1 ; Acquired hypothyroidism E03.9 ; Tremor R25.1 and Benign prostatic hyperplasia with lower urinary tract symptoms N40.1 ASSESSMENTS Encounter Date Diagnosis Assessment Notes Treatment Notes Treatment Clinical Notes 01/23/2024 Hypercholesterolemia (ICD-10 - E78.00) 01/23/2024 Generalized anxiety disorder (ICD-10 - F41.1) 01/23/2024 Acquired hypothyroid ism (ICD-10 - E03.9) 01/23/2024 Tremor (ICD-10 - R25.1) 01/23/2024 Benign prostatic hyperplasia with lower urinary tract symptoms (ICD-10 - N40.1) PLAN OF TREATMENT Medication Medication Name Sig Start Date Stop Date Notes Testosterone Enanthate 200 MG/ML 1 mL Intramuscular Once every 2 weeks Methenamine Hippurate 1 GM 1 tablet Orally Twice a day Escitalopram Oxalate 20 MG 1 tablet Orally Once a day Vitamin D 1000 UNIT 1 capsule Orally Once a day 10/20/2014 Multivitamins 1 capsule Orally Once a day Omeprazole 40 MG 1 capsule 1/2 to 1 h our before morning meal Orally Once a day Propranolol HCl ER 120 MG 1 capsule Orally Once a day Primidone 50 MG 1 tablet Orally Thre e times a day Tamsulosin HCl 0.4 MG 1 capsule Orally Twice a day Levothyroxine Sodium 125 MCG 1 tablet in the morning on an empty stomach Orally Once a day amLODIPine Besylate 5 MG 1 tablet Orally Once a day Atorvastatin Calcium 80 MG 1 tablet Orally Once a day Next Appt Details Follow Up: 2 Months, Reason: follow up visit Progress Notes * Examination Category Sub-Category Detail Notes General Examination GENERAL APPEARANCE: in no ac kamari distress, well developed, well nourished HEAD: normocephalic, atrau matic HEART: no murmurs, regular rate and rhythm, S1, S2 normal LUNGS: clear to auscultatio n bilaterally ABDOMEN: normal, bowel sounds present, soft, nontender, nondistended SKIN: warm and dry EXTREMITIES: no edema PSYCH: alert, oriented, cog nitive function intact
--- OUTSIDE RECORDS SUMMARY | 2024-03-26 11:26 | XMS_ITS ---
Author Organization [facility] Address [address] [place] [address] Care Team Providers Care Pattern Data Operator Name Role Phone Shola (RETIRED) Mike EAST Primary Care Provid er Unavailable Ramoen Teixeira Jr Unavailable [phone] REASON FOR VISIT pathology Encounters Encounter Location Date Provider Diagnosis [facility] [address] [place] [address] 06/29/2023 Ramone Teixeira Jr PLAN OF TREATMENT No Information
== END 2024-03-26 11:19 | disposition home or self-care (01) ==
LOC: HO.HMCSH 10:27
PROVIDERS: PCP Internal Medicine; Visit Provider Physician Assistant Medical
DX: F41.9 Anxiety disorder, unspecified (principal); F98.8 Other specified behavioral and emotional disorders with onset usually occurring in childhood and adolescence; F32.A Depression, unspecified; E34.9 Endocrine disorder, unspecified; C62.90 Malignant neoplasm of unspecified testis, unspecified whether descended or undescended; I10 Essential (primary) hypertension; N40.1 Benign prostatic hyperplasia with lower urinary tract symptoms; E03.9 Hypothyroidism, unspecified; E78.00 Pure hypercholesterolemia, unspecified; R25.1 Tremor, unspecified

== ENCOUNTER → 2024-03-26 10:25 | Outpatient (BNVA) | payer MEDICARE, SELFPAY | PROVIDERS: PCP Internal Medicine; Visit Provider Physician Assistant Medical | DX: F41.9 Anxiety disorder, unspecified (principal); F32.A Depression, unspecified; F98.8 Other specified behavioral and emotional disorders with onset usually occurring in childhood and adolescence; C62.90 Malignant neoplasm of unspecified testis, unspecified whether descended or undescended; I10 Essential (primary) hypertension; N40.1 Benign prostatic hyperplasia with lower urinary tract symptoms; E03.9 Hypothyroidism, unspecified; E78.00 Pure hypercholesterolemia, unspecified; R25.1 Tremor, unspecified | CPT/HCPCS: 99212 ==

== ENCOUNTER 2024-03-27 13:16 | Outpatient (AMB) | payer MEDICARE, SELFPAY ==
[2024-03-27 13:18] VITALS: BP 130/74; PULSE 53; BMI 25.8
--- NOTE | 2024-03-27 13:18 | A.OFFVIS_ITS ---
Vital Signs 03/27/24 13:18 Height 5 ft 7 in Weight 164 lb 14.492 oz BMI 25.8 BP 130/74 Blood Pressure Location Lt brachial Position Sitting Pulse 53 Pulse Source Monitor Intake Visit Reasons: 3 mth f/up Intake Note: 3 mth f/up World Travel Counselor Required: No Accompanied by: Self / Same As Patient Allergies adhesive tape [ADHESIVE TAPE] Allergy (Intermediate, Verified 03/26/24 13:46) RASH cashew nut [CASHEW NUT] Allergy (Intermediate, Verified 03/26/24 13:46) SWELLING sulfamethoxazole [From Bactrim] Allergy (Intermediate, Verified 03/26/24 13:46) Rash trimethoprim [From Bactrim] Allergy (Intermediate, Verified 03/26/24 13:46) Rash PERM HAIR DYE Allergy (Severe, Uncoded 03/26/24 13:46) severe rash Medication List - Last Reconciled 03/27/24 by Lakhwinder De Souza MD acetaminophen 650 mg (2 x 325 mg) PO Q6H PRN 30 days alprazolam 1 mg PO amlodipine 5 mg PO DAILY atorvastatin 80 mg PO BEDTIME cholecalciferol (vitamin D3) 25 mcg PO DAILY dextroamphetamine-amphetamine 30 mg 15 mg PO TID PRN escitalopram oxalate (Lexapro) 20 mg PO DAILY hydrocortisone 1% 1 appl topical DAILY PRN hydromorphone 2 mg PO Q4H PRN 7 days levothyroxine 125 mcg PO DAILY@0600 methenamine hippurate 1 g PO BID multivitamin 1 tab PO DAILY omeprazole 40 mg PO DAILY@0630 primidone 50 mg PO TID promethazine 12.5 mg PO Q6H PRN propranolol ER 120 mg PO Q24H sertraline 50 mg PO DAILY tamsulosin 0.4 mg PO BID testosterone cypionate 200 mg IM Q2W HPI Comments Details: 79-year-old gentleman with dyspnea on exertion who is here for follow-up. He was taken for cardiac catheterization for his progressive dyspnea which did not show any significant coronary disease. His filling pressures at rest were normal. His blood pressure was elevated and he was started on amlodipine. His BP is better. He was diagnosed with exercise induced asthma. He underwent back surgery and is recovering from that. He tried to do some exercise but had some dyspnea and fatigue. I have explained to him that this is quite normal after surgery. 08/21/23: he is here for f/u. He underwent hip surgery in 02/15/2023. He is saying that he has recovered from that was breathing has been bad. He previously was diagnosed with exercise-induced asthma and was on some inhalers which he has not used for few months. He is getting shortness of breath with activities. No other significant complaints. 12/27/2023: He is here for follow-up. He wants to undergo right hip surgery. He is in a lot of pain. Blood pressure is elevated. He is on amlodipine 5 mg and propranolol every other day. He is here for perioperative cardiovascular risk assessment. 03/27/2024: He is here for follow-up. He recently had an event where he started having shaking of his body and then he fell to the ground. He does not recall falling and losing consciousness. He said his friends were around him who noticed that he was confused. He subsequently saw Neurology and had further workup he was told that there was some abnormality noticed on an EEG and he needs to repeat it today. He is quite overwhelmed and stress. He also has significant shaking of his head and has been using primidone for long time. He has we will refer to movement disorder specialist Dr. Collazo. Blood pressure is good. 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) History of total left hip arthroplasty (01/31/23) Hx of unilateral orchiectomy Hx of excision of mass H/O colonoscopy (~06/27/23) History of cholecystectomy History of back surgery History of right knee surgery History of left knee surgery History of intestinal surgery Family History Father Clogged artery (heart) Mother Cardiac disease Social History Household Members: None Housing: House Are you a primary career development manager to a significant other at home: No Do you presently have visiting nurse or other home services: No Alcohol intake: current Alcohol intake frequency: a few times a week Alcohol type: beer Patient Tobacco Use Status: Never used Tobacco Substance Use Type: Marijuana Advance Directives Date on File: 02/03/23 service: No Review of Systems Const Denies chills, Denies fatigue, Denies fever(s), Denies frequent falls, Denies weakness, Denies weight gain and Denies weight loss ENT Denies dizziness Card Denies chest pain, Denies leg edema, Denies lightheadedness, Denies palpitations, Denies dyspnea and Denies dyspnea on exertion Resp Denies cough, Denies dyspnea and Denies dyspnea on exertion GI Denies hematochezia Musc Denies abnormal gait, Denies muscle weakness, Denies numbness, Denies radiating pain into limb and Denies tingling Neuro Denies abnormal gait, Denies dizziness, Denies frequent falls, Denies numbness, Denies tingling and Denies weakness Endo Denies fatigue and Denies palpitations Physical Exam Vital Signs: Last Vital Signs Pulse 53 03/27/24 13:18 BP 130/74 03/27/24 13:18 BMI result Body Mass Index 25.8 GENERAL APPEARANCE: in no acute distress. NECK/THYROID: no carotid bruit, no jugular venous distention. SKIN: no suspicious lesions, warm and dry. HEART: no murmurs, regular rate and rhythm, S1, S2 normal. LUNGS: clear to auscultation bilaterally. ABDOMEN: normal, bowel sounds present, soft, nontender, nondistended. EXTREMITIES: no clubbing, cyanosis, or edema. PERIPHERAL PULSES: equal. NEUROLOGIC: nonfocal, alert and oriented. Shaking of his head. Office Procedures EKG Details: Sinus bradycardia 53 beats per minute, normal axis, minimal voltage criteria for left ventricular hypertrophy, QTC 397 milliseconds. 58082-Xfygeruzwaktdjaja, Complete Assessment & Plan Assessment & Plan (1) HTN (hypertension): Comment: follows w/HCS-cardiac cath 2020-no significant CAD Code(s): I10 - Essential (primary) hypertension Category: Medical Plan Pleasant 79 year gentleman who is here for follow-up. He was seen for dyspnea on exertion and underwent cardiac catheterization which showed no significant coronary disease. He was subsequently diagnosed with asthma. He has been experiencing shaking of his body and had and is being assessment Neurology. It appears he also has been referred to movement disorder specialist. Cardiovascular point of view things are stable. His blood pressure is well controlled. He is quite overwhelmed currently. No changes in medications recommended currently. Follow-up in 6 months. Thank you for allowing me to participate in the care of your patient. Please feel free to contact me if you have any questions. Coding Level of Care Code Est Pt Level 3 (72700) Diagnoses HTN (hypertension) I10 CPT Codes EKG - CPT: 26486-Diaggzjgrblkevujt, Complete ([id number])
--- OUTSIDE RECORDS SUMMARY | 2024-03-27 15:24 | XMS_ITS ---
Author Organization [facility] Address [address] [place] [address] Care Team Providers Care Animal Care Service Worker Name Role Phone Shola (RETIRED) Mike EAST Primary Care Provid er Unavailable Ramone Teixeira Jr Unavailable [phone] REASON FOR VISIT screening,hx polyps Encounters Encounter Location Date Provider Diagnosis [facility] [address] [place] [phone] 06/27/2023 Ramone Teixeira Jr Encounter for screening [...]
--- OUTSIDE RECORDS SUMMARY | 2024-03-27 15:24 | XMS_ITS ---
Author Organization Mike Jolley DO, FAC Address [address] [place], [place] [id number] Care Team Providers Care Director Of Cath Lab Name Role Phone Mike Jolley Primary Care [...] Location Date Provider Diagnosis Mike Jolley DO, [address] [phone] 01/23/2024 Mike Jolley Hypercholesterolemia E78.00 ; Generalized [...]
--- OUTSIDE RECORDS SUMMARY | 2024-03-27 15:24 | XMS_ITS | Patient Health Record ---
Author Organization [facility] Address [address] [place] [address] Care Team Providers Care Prosthetic Makeup Designer Name Role Phone Shola (RETIRED) Mike EAST Primary Care Provid er Unavailable Ramone Teixeira Jr Unavailable [phone] ALLERGIES Allergen (clinical drug ingredient) Drug/Non Drug Allergy documented on EMR Reaction Allergy Type Onset Date Status cashews and permenan t hair dye (uncoded) Unknown Allergy Active RESULTS Component Value Reference Range Notes Pathology Reviewed date:06/29/2023 11:23:39 AM Interpretation: Performing Lab:[facility], [address] [place] [phone] Notes/Report: Complete Blood Count Auto Di ff Reviewed date:09/25/2023 04:22:59 PM Interpretation: Performing Lab:[facility], [address] [place] [phone] Notes/Report: White Blood Count 8.7 4.8-10.8 X10*3/uL [...] Panel Reviewed date:09/25/2023 04:22:53 PM Interpretation: Performing Lab:[facility], [address] [place] [phone] Notes/Report: Bilirubin Total 0.6 0.0-1.0 mg/dL Bilirubin Direct 0.2 0.0-0.5 mg/dL Slight Hem olysis Aspartate Amino Transferase 33 5-37 U/L Slight Hemolysis Alanine Aminotransferase 16 0-40 U/L Total Protein 8.4 6.5-8.0 g/dL Albumin Level 4.4 3.5-5.0 g/dL Alkaline Phosphatase 99 39-117 U/L Lipase Reviewed date:09/25/2023 04:22:44 PM Interpretation: Performing Lab:[facility], [address] [place] [phone] Notes/Report: Lipase 12 8-78 U/L XR abdomen min 2V Reviewed date:09/25/2023 08:55:33 PM Interpretation: Performing Lab: Notes/Report: [address] [address] XRay Report Signed Patient: Jefry Bojorquez MR#: [id number] 6 : 1945 Acct:[id number] Age/Sex: 78 / M ADM Date: 09/25/23 Loc: HO.XRAY Attending Dr: Ramone Teixeira MD Ordering Physician: Ramone Teixeira MD Date of Service: 09/25/23 Procedure(s): XR abdomen min 2V Accession Number(s): [id number] cc: Ramone Teixeira MD; Mike Jolley DO [...] in OV> 09/25/23 1641 DD/ 1454 TD/TT: Telegraph Plant Maintainer: SS REASON FOR REFERRAL No Information MEDICATIONS [...] Problem Hypertension, unspecified type (I10) Active confirmed 58934123 Problem Constipation, unspecified constipation type (K59.00) Active confirmed 50737591 Problem Colon cancer screening (Z12.11) Active confirmed 115077567 Problem Personal history of colonic polyps (Z86.010) Active confirmed 921460730 Problem Encounter for long-term (current) use of NSAIDs (Z79.1) Active confirmed 411981737 Problem Generalized abdominal pain (R10.84) Active confirmed 201729193 VITAL SIGNS Temperature 97.7 degrees Fahrenheit 04/19/2023 Blood pressure diastolic 00 mm Hg 04/19/2023 Height 68 in 04/19/2023 Blood pressure systolic 000 mm Hg 04/19/2023 Weight 162 lbs 04/19/2023 BMI 24.63 kg/m2 04/19/2023 Encounters Encounter Location Date Provider Diagnosis [facility] [address] [place], [place] [phone] 06/27/2023 Ramone Teixeira Jr Encounter for screening colonoscopy Z12.11 ; Personal history of colonic polyps Z86.010 and Colon polyps K63.5 [facility] [address] [place] [phone] 04/19/2023 Ramone Teixeira Jr Colon cancer screening Z12.11 ; Encounter for long-term (current) use of NSAIDs Z79.1 and Personal history of colonic polyps Z86.010 [facility] [address] [place] [phone] 06/29/2023 Ramone Teixeira Jr [facility] [address] [place] [address] [place] [phone] 09/25/2023 Ramone Teixeira Jr Generalized abdominal pain [...] OF [place] [address] [place] [address] [id number] JEFRY BOJORQUEZ Self - patient is the insured [employer] CLAIM[employer] [address] [place] [address] [phone] [id number] JEFRY BOJORQUEZ Self - patient is the [...]
--- OUTSIDE RECORDS SUMMARY | 2024-03-27 15:24 | XMS_ITS ---
Author Organization Mike Jolley DO, [facility] Address [address] [place], [place] [phone] Care Team Providers Care Criminal Intelligence Analyst Name Role Phone Mike Jolley Primary Care Provider Keshawn IQBAL, Lino Unavailable Unavailable REASON FOR VISIT Message SOCIAL HISTORY Sex Assigned At : Social History Observation Description Sex Assigned At Male Encounters Encounter Location Date Provider Diagnosis Mike Jolley DO, FACP [address] [place] [phone] 12/18/2023 Mike Jolley PLAN OF TREATMENT No Information
--- OUTSIDE RECORDS SUMMARY | 2024-03-27 15:24 | XMS_ITS ---
Author Organization [facility] Address [address] [place] [address] Care Team Providers Care Elevator Troubleshooter Name Role Phone Shola (RETIRED) Mike EAST Primary Care Provid er Unavailable Ramone Teixeira Jr Unavailable REASON FOR VISIT feels like he has a blockage PROBLEMS Problem Type ICD Code Onset Dates Problem Status W/U Status Risk SNOMED Code Notes Problem Generalized abdominal pain (R10.84) Active confirmed [id number] Encounters Encounter Location Date Provider Diagnosis [facility] [address] [place] [address] 09/25/2023 Ramone Teixeira Jr Generalized abdominal pain R10.84 ASSESSMENTS Encounter Date Diagnosis Assessment Notes Treatment Notes Treatment Clinical Notes 09/25/2023 Generalized abdominal pain (ICD-10 - R10.84) PLAN OF TREATMENT Pending Test Test Name Order Date LIVER PROFILE 09/25/2023 LIPASE 09/25/2023 CBC w/o DIFF 09/25/2023 XR abdomen 3V 09/25/2023
--- OUTSIDE RECORDS SUMMARY | 2024-03-27 15:24 | XMS_ITS ---
Author Organization Mike Jolley DO, FAC Address [address] [place], [place] [phone] Care Team Providers Care Retouching Operator Name Role Phone Mike Jolley Primary Care Provider [phone] Keshawn IQBAL, Lino Unavailable Unavailable REASON FOR VISIT 2 month f/u SOCIAL HISTORY Sex Assigned At : Social History Observation Description Sex Assigned At Male Encounters Encounter Location Date Provider Diagnosis Mike Jolley DO, FACP [address] [place] [phone] 03/26/2024 Mike Jolley PLAN OF TREATMENT No Information
--- OUTSIDE RECORDS SUMMARY | 2024-03-27 15:24 | XMS_ITS ---
Author Organization [facility] Address [address] [place] [address] Care Team Providers Care Light Armored Reconnaissance Officer Name Role Phone Shola (RETIRED) Mike EAST Primary Care Provid er Unavailable Ramone Teixeira Jr Unavailable [phone] REASON FOR VISIT pathology Encounters Encounter Location Date Provider Diagnosis [facility] [address] [place] [address] 06/29/2023 Ramone Teixeira Jr PLAN OF TREATMENT No Information
== END 2024-03-27 13:56 | disposition home or self-care (01) ==
PROVIDERS: PCP Internal Medicine; Visit Provider Internal Medicine Cardiovascular Disease
DX: I10 Essential (primary) hypertension (principal)
CPT/HCPCS: 93010; 99213

== ENCOUNTER → 2024-03-27 13:16 | Outpatient (BNVA) | payer MEDICARE, SELFPAY | PROVIDERS: PCP Internal Medicine; Visit Provider Internal Medicine Cardiovascular Disease | DX: I10 Essential (primary) hypertension (principal); R00.1 Bradycardia, unspecified | CPT/HCPCS: 93005; 99212 ==

== ENCOUNTER → 2024-04-01 14:24 | Outpatient (BNVA) | payer MEDICARE, SELFPAY | PROVIDERS: PCP Internal Medicine; Visit Provider Psychiatry & Neurology Neurology | DX: R25.1 Tremor, unspecified (principal); F32.89 Other specified depressive episodes; F41.9 Anxiety disorder, unspecified; R25.9 Unspecified abnormal involuntary movements | CPT/HCPCS: 99202 ==

== ENCOUNTER 2024-04-13 16:47 | Outpatient (REF) | payer MEDICARE, SELFPAY ==
--- NOTE | ~2024-04-13 | MR_ITS ---
CLINICAL HISTORY: PIT LESION? MR Brain and pituitary gland with and without gadolinium Comparison: 10/06/2015 Findings: No acute infarct. 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 Cavernous sinuses are unremarkable. Mild age-related cerebral hemispheric white matter ischemic changes. No midline shift or hydrocephalus. Vascular flow voids are intact. The orbits are normal. Mild bilateral ethmoid sinus mucosal thickening. No focal bone lesion. IMPRESSION: Nonenhancing, T1 intermediate intensity, 9 mm (versus 8 mm previously) benign cyst is seen in the right sella/suprasellar cistern. 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 Cavernous sinuses are unremarkable. This document has been electronically signed by: Teri Estrella MD on 04/16/2024 11:33:51
--- OUTSIDE RECORDS SUMMARY | 2024-04-13 16:51 | XMS_ITS ---
Author Organization Mike Jolley DO, FAC Address [address] [place], [place] [phone] Care Team Providers Care Coffee Attendant Name Role Phone Mike Jolley Primary Care Provider [phone] Keshawn IQBAL, Lino Unavailable Unavailable REASON FOR VISIT 2 month f/u SOCIAL HISTORY Sex Assigned At : Social History Observation Description Sex Assigned At Male Encounters Encounter Location Date Provider Diagnosis Mike Jolley DO, FACP [address] [place] [phone] 03/26/2024 Mike Jolley PLAN OF TREATMENT No Information
--- OUTSIDE RECORDS SUMMARY | 2024-04-13 16:51 | XMS_ITS ---
Author Organization [facility] Address [address] [place] [address] Care Team Providers Care Piano Mechanic Name Role Phone Shola (RETIRED) Mike EAST Primary Care Provid er Unavailable Ramone Teixeira Jr Unavailable REASON FOR VISIT feels like he has a blockage PROBLEMS Problem Type ICD Code Onset Dates Problem Status W/U Status Risk SNOMED Code Notes Problem Generalized abdominal pain (R10.84) Active confirmed 671151917 Encounters Encounter Location Date Provider Diagnosis [facility] [address] [place] [address] 09/25/2023 Ramone Teixeira Jr Generalized abdominal pain R10.84 ASSESSMENTS Encounter Date Diagnosis Assessment Notes Treatment Notes Treatment Clinical Notes 09/25/2023 Generalized abdominal pain (ICD-10 - R10.84) PLAN OF TREATMENT Pending Test Test Name Order Date LIVER PROFILE 09/25/2023 LIPASE 09/25/2023 CBC w/o DIFF 09/25/2023 XR abdomen 3V 09/25/2023
--- OUTSIDE RECORDS SUMMARY | 2024-04-13 16:51 | XMS_ITS ---
Author Organization [facility] Address [address] [place] [address] Care Team Providers Care Ramp And Cargo Supervisor Name Role Phone Shola (RETIRED) Mike EAST Primary Care Provid er Unavailable Ramone Teixeira Jr Unavailable REASON FOR VISIT pathology Encounters Encounter Location Date Provider Diagnosis [facility] [address] [place] [address] 06/29/2023 Ramone Teixeira Jr PLAN OF TREATMENT No Information
--- OUTSIDE RECORDS SUMMARY | 2024-04-13 16:51 | XMS_ITS ---
Author Organization Mike Jolley DO, [facility] Address [address] [place], [place] [phone] Care Team Providers Care Non Licensed Nuclear Equipment Operator Name Role Phone Mike Jolley Primary Care Provider [phone] Keshawn IQBAL, Lino Unavailable Unavailable REASON FOR VISIT Message SOCIAL HISTORY Sex Assigned At : Social History Observation Description Sex Assigned At Male Encounters Encounter Location Date Provider Diagnosis Mike Jolley DO, FACP [address] [place] [phone] 12/18/2023 Mike Jolley PLAN OF TREATMENT No Information
--- OUTSIDE RECORDS SUMMARY | 2024-04-13 16:51 | XMS_ITS ---
Author Organization Mike Jolley DO, FAC Address [address] [place], [place] [phone] Care Team Providers Care Grooming Assistant Name Role Phone Mike Jolley Primary Care Provider [phone] Keshawn IQBAL, Lino Unavailable Unavailable ALLERGIES Allergen [...] Location Date Provider Diagnosis Mike Jolley DO, [address] [phone] 01/23/2024 Mike Jolley Hypercholesterolemia E78.00 ; Generalized [...]
--- OUTSIDE RECORDS SUMMARY | 2024-04-13 16:51 | XMS_ITS ---
Author Organization [facility] Address [address] [place] [address] Care Team Providers Care Car Sealer Name Role Phone Shola (RETIRED) Mike EAST Primary Care Provid er Unavailable Ramone Teixeira Jr Unavailable [phone] REASON FOR VISIT screening,hx polyps Encounters Encounter Location Date Provider Diagnosis [facility] Out[facility] [address] [place] [phone] 06/27/2023 Ramone Teixeira Jr Encounter for screening [...]
--- OUTSIDE RECORDS SUMMARY | 2024-04-13 16:51 | XMS_ITS | Continuity of Care Document ---
Author Organization [facility] [address] [place] [address] Phone [phone] Care Team Providers Care Mapping Specialist Name Role Phone Mike Jolley M.D. Care Team Information Recei sudhir [phone] Problems Active Problems Provider Date Hypogonadism Lino Liao M.D. Onset: Essential hypertension Lino Liao M.D. Ons et: 01/11/2022 H/O: depression Lino Liao M.D. Onset: Osteoarthritis Lino Liao M.D. Onset: Essential tremor Lino Liao M.D. Onset: Hypothyroidism Lino Liao M.D. Onset: Hypercholesterolemia Lino Liao M.D. Onset : 01/11/2022 Social History Type Date Description Comments Sex Unknown ETOH Use Occasionally consumes alcoho l Tobacco Use Start: Unknown Patient has never smoked Smoking Status Reviewed: 07/12/22 Patient has never sm oked Allergies and adverse reactions Active Allergies Criticality Reaction Severity Comments Date Bactrim Unable to assess criticality 01/11/2022 Medications Active Medications SIG Qnty Indications Order ing Provider Date Propranolol HCL OR312wx Caps ER 24HR 4 x per week Lino Liao M.D. 07/12/2022 Testosterone Dcvlddbov045bu/ml Solution Inject 200MG Intramuscularly Every 2 Weeks 2ml E29.1 Libby Lopez M.D. Xvcclppdyd6ky Tablets Take 1 Tablet By Mouth 4 Times A Day as Needed Unknown Amphetamine-Dextroam frmmtqywv70rp Tablets Take 1 Tablet By Mouth 3 Times A Day as Needed Unknown Escitalopram Zgdqrzg84th Tablets Take 1 Tablet By Mouth Every Day In The Morning Unknown Diclofenac Kujfwx40ah Tablets DR Take 1 Tablet By Mouth Twice A Day as Needed Mike Jolley M.D. Vrjboqnpia11ot Capsules DR Take 1 Capsule By Mouth Every Day For 90 Days Mike Jolley M.D. Atorvastatin Moamlwy66nd Tablets Take 1 Tablet By Mouth Every Day Mike Jolley M.D. Amlodipine Seuwzzrl1ib Tablets Take 1 Tablet By Mouth Every Day Lakhwinder De Souza MD Levothyroxine Momgqt127vtj Tablets Take 1 Tablet By Mouth Every Day Mike Jolley M.D. Pwskmkvzz56gq Tablets Take 1 Tablet By Mouth Two Times A Day For 90 Days Elvira Morgan MD Tamsulosin HCL0.4mg Capsules Take 2 Capsules By Mouth Every Evening Unknown Vital Signs Date Vital Result Comment 08/21/2023 2:37pm BP Systolic 122 mmHg BP Diastolic 70 mmHg Heart Rate 66 /min Height 68 inches 5'8 Weight 165.25 lb BMI (Body Mass Index) 25.1 kg/m2 Results Test Acquired Date Facility Test Result H/L Range Note Laboratory test finding 08/21/2023 [facility] Testosterone 549 ng/dL 264-916 1 Laboratory test finding 01/10/2023 [facility] Testosterone 298 ng/dL (280-800 ) Laboratory test finding 07/12/2022 [facility] Testosterone 560 ng/dL (280-800 ) 2 Complete Abc With Diff 07/12/2022 [facility] [id number] Duplicate order <SEE NOTE> 3 WBC 8.1 K/MM3 (4.0-11. 0) RBC 5.25 M/MM3 (4.70-6. 10) HGB 15.5 GM/DL (13.7-17 .1) HCT 49.0 % (40.5-50 .0) MCV 93.3 FL (80.0-94 .0) MCH 29.5 pg (27.0-34 .0) MCHC 31.6 g/dL Low (33.0-37 .0) PLT 333 K/MM3 (150-460 ) RDW-SD 49.0 FL High (<47.0) MPV 10.8 FL (9.4-12. 4) Automated NRBC 0.0 #/100WBC'S Abs. NRBC 0.0 K/MM3 Neut # 5.7 K/MM3 (1.3-7.0 ) Lymph # 1.0 K/MM3 (0.8-3.1 ) [place]# 1.1 K/MM3 (0.4-1.3 ) Eo # 0.3 K/MM3 (0.0-0.4 ) Baso # 0.0 K/MM3 (0.0-0.1 ) Abs. Imm Gran 0.0 K/MM3 Neut 70.1 % (44-76) Lymph 12.3 % Low (15-43) Monocyte 13.2 % High (4.5-10. 5) Eo 3.5 % (0-6) Baso 0.4 % (0-2) Imm Gran 0.5 % Complete Abc With Diff 01/27/2022 [facility] WBC 4.8 K/MM3 (4.0-11. 0) RBC 4.91 M/MM3 (4.70-6. 10) HGB 15.6 GM/DL (13.7-17 .1) HCT 46.7 % (40.5-50 .0) MCV 95.1 FL High (80.0-94 .0) MCH 31.8 pg (27.0-34 .0) MCHC 33.4 g/dL (33.0-37 .0) PLT 201 K/MM3 (150-460 ) RDW-SD 46.5 FL (<47.0) MPV 10.6 FL (9.4-12. 4) Automated NRBC 0.0 #/100WBC'S Abs. NRBC 0.0 K/MM3 Neut # 3.0 K/MM3 (1.3-7.0 ) Lymph # 0.9 K/MM3 (0.8-3.1 ) [place]# 0.7 K/MM3 (0.4-1.3 ) Eo # 0.1 K/MM3 (0.0-0.4 ) Baso # 0.0 K/MM3 (0.0-0.1 ) Abs. Imm Gran 0.0 K/MM3 Neut 62.8 % (44-76) Lymph 19.8 % (15-43) Monocyte 13.7 % High (4.5-10. 5) Eo 2.9 % (0-6) Baso 0.6 % (0-2) Imm Gran 0.2 % Laboratory test finding 01/27/2022 [facility] Testosterone 141 ng/dL Low (280-800 ) Complete Abc With Diff 01/11/2022 [facility] WBC 5.0 K/MM3 (4.0-11. 0) RBC 4.91 M/MM3 (4.70-6. 10) HGB 15.6 GM/DL (13.7-17 .1) HCT 48.2 % (40.5-50 .0) MCV 98.2 FL High (80.0-94 .0) MCH 31.8 pg (27.0-34 .0) MCHC 32.4 g/dL Low (33.0-37 .0) PLT 257 K/MM3 (150-460 ) RDW-SD 48.6 FL High (<47.0) MPV 11.1 FL (9.4-12. 4) Automated NRBC 0.0 #/100WBC'S Abs. NRBC 0.0 K/MM3 Neut # 2.9 K/MM3 (1.3-7.0 ) Lymph # 1.0 K/MM3 (0.8-3.1 ) [place]# 0.8 K/MM3 (0.4-1.3 ) Eo # 0.2 K/MM3 (0.0-0.4 ) Baso # 0.0 K/MM3 (0.0-0.1 ) Abs. Imm Gran 0.0 K/MM3 Neut 59.0 % (44-76) Lymph 20.4 % (15-43) Monocyte 16.8 % High (4.5-10. 5) Eo 3.2 % (0-6) Baso 0.4 % (0-2) Imm Gran 0.2 % Laboratory test finding 01/11/2022 [facility] Testosterone 345 ng/dL (280-800 ) 1 Adult male reference interval is based on a population of healthy nonobese males (BMI <30) between 19 and 39 years old. Venecia et.al. JCEM 2017,102;8112-8094. PMID: [id number]. 2 Duplicate order canc elled via interface 3 Duplicate order canc elled via interface Medical Devices Description No Information Available Encounters Type Date Location Provider Dx Diagnosis Office Visit 08/21/2023 2:45p Main Office Lino Liao M.D. E29.1 Testicular hypofunction G25.0 Essential tremor E03.9 Hypothyroidism, unsp ecified E78.00 Pure hypercholestero lemia, unspecified Assessments Date Code Description Provider 08/21/2023 E29.1 Hypogonadism Lino Liao M.D. 08/21/2023 G25.0 Essential tremor Lino harrell M.D. 08/21/2023 E03.9 Hypothyroidism Lino corral M.D. 08/21/2023 E78.00 Hypercholesterolemia Lino uribe M.D. Plan of Treatment No Information Available Functional Status Description No Information Available Mental Status Description No Information Available Referrals Description No Information Available
[2024-04-13] MEDS: gadobutroL 7.5 ML VIAL IVPUSH (17:38)
== END 2024-04-13 16:48 | disposition home or self-care (01) ==
LOC: HO.MRI 16:47
PROVIDERS: Visit Provider Registered Nurse
DX: E23.7 Disorder of pituitary gland, unspecified (principal)
CPT/HCPCS: 70553; A9585

== ENCOUNTER → 2024-04-13 17:25 | Outpatient (BNV) | payer MEDICARE, SELFPAY | PROVIDERS: Visit Provider Radiology Diagnostic Radiology | DX: E23.7 Disorder of pituitary gland, unspecified (principal) | CPT/HCPCS: 70553 ==

== ENCOUNTER 2024-04-19 13:28 | Outpatient (REF) | payer MEDICARE, SELFPAY ==
--- OUTSIDE RECORDS SUMMARY | 2024-04-19 13:50 | XMS_ITS ---
Author Organization Mike Jolley DO, FAC Address [address] [place], [place] [id number] Care Team Providers Care Business Agent Name Role Phone Mike Jolley Primary Care Provider Keshawn IQBAL, Lino Unavailable Unavailable REASON FOR VISIT 2 month f/u SOCIAL HISTORY Sex Assigned At : Social History Observation Description Sex Assigned At Male Encounters Encounter Location Date Provider Diagnosis Mike Jolley DO, FACP [address] [place] [phone] 03/26/2024 Mike Jolley PLAN OF TREATMENT No Information
--- OUTSIDE RECORDS SUMMARY | 2024-04-19 13:50 | XMS_ITS | Patient Health Record ---
Author Organization [facility] Address [address] [place] [address] Care Team Providers Care Aircraft Structure Mechanic Name Role Phone Shola (RETIRED) Mike EAST Primary Care Provid er Unavailable Ramone Teixeira Jr Unavailable [phone] ALLERGIES Allergen (clinical drug ingredient) Drug/Non Drug Allergy documented on EMR Reaction Allergy Type Onset Date Status cashews and permenan t hair dye (uncoded) Unknown Allergy Active RESULTS Component Value Reference Range Notes Pathology Reviewed date:06/29/2023 11:23:39 AM Interpretation: Performing Lab:[facility], [address] [place] [phone] Notes/Report: Complete Blood Count Auto Di ff Reviewed date:09/25/2023 04:22:59 PM Interpretation: Performing Lab:[facility], [address] [place] [phone] Notes/Report: White Blood Count 8.7 4.8-10.8 X10*3/uL [...] Panel Reviewed date:09/25/2023 04:22:53 PM Interpretation: Performing Lab:[facility], [address] [place] [phone] Notes/Report: Bilirubin Total 0.6 0.0-1.0 mg/dL Bilirubin Direct 0.2 0.0-0.5 mg/dL Slight Hem olysis Aspartate Amino Transferase 33 5-37 U/L Slight Hemolysis Alanine Aminotransferase 16 0-40 U/L Total Protein 8.4 6.5-8.0 g/dL Albumin Level 4.4 3.5-5.0 g/dL Alkaline Phosphatase 99 39-117 U/L Lipase Reviewed date:09/25/2023 04:22:44 PM Interpretation: Performing Lab:[facility], [address] [place] [phone] Notes/Report: Lipase 12 8-78 U/L XR abdomen min 2V Reviewed date:09/25/2023 08:55:33 PM Interpretation: Performing Lab: Notes/Report: [address] [address] XRay Report Signed Patient: Jefry Bojorquez MR#: [id number] 6 : 1945 Acct:[id number] Age/Sex: 78 / M ADM Date: 09/25/23 Loc: HO.XRAY Attending Dr: Ramone Teixeira MD Ordering Physician: Ramone Teixeira MD Date of Service: 09/25/23 Procedure(s): XR abdomen min 2V Accession Number(s): [id number] cc: Ramone Teixeira MD; Mike Jolley DO [...] in OV> 09/25/23 1641 DD/ 1454 TD/TT: Marketing Underwriter: SS REASON FOR REFERRAL No Information MEDICATIONS [...] Problem Hypertension, unspecified type (I10) Active confirmed 99078366 Problem Constipation, unspecified constipation type (K59.00) Active confirmed 31682728 Problem Colon cancer screening (Z12.11) Active confirmed 325862523 Problem Personal history of colonic polyps (Z86.010) Active confirmed 353400234 Problem Encounter for long-term (current) use of NSAIDs (Z79.1) Active confirmed 458202090 Problem Generalized abdominal pain (R10.84) Active confirmed 111669032 VITAL SIGNS Temperature 97.7 degrees Fahrenheit 04/19/2023 Blood pressure diastolic 00 mm Hg 04/19/2023 Height 68 in 04/19/2023 Blood pressure systolic 000 mm Hg 04/19/2023 Weight 162 lbs 04/19/2023 BMI 24.63 kg/m2 04/19/2023 Encounters Encounter Location Date Provider Diagnosis [facility] [place] [address] [place], [place] [phone] 06/27/2023 Ramone Teixeira Jr Encounter for screening colonoscopy Z12.11 ; Personal history of colonic polyps Z86.010 and Colon polyps K63.5 [facility] [address] [place] [address] 04/19/2023 Ramone Teixeira Jr Colon cancer screening Z12.11 ; Encounter for long-term (current) use of NSAIDs Z79.1 and Personal history of colonic polyps Z86.010 [facility] [address] [place] [address] 06/29/2023 Ramone Teixeira Jr [facility] [address] [place] [address] [place] [phone] 09/25/2023 Ramone Teixeira Jr Generalized abdominal pain [...] OF [place] [address] [place] [address] [id number] JEFRY BOJORQUEZ Self - patient is the insured [employer] ATT[employer] CLAIMS [address] [place] [address] [id number] JEFRY BOJORQUEZ Self - patient is the [...]
--- OUTSIDE RECORDS SUMMARY | 2024-04-19 13:50 | XMS_ITS ---
Author Organization [facility] Address [address] [place] [address] Care Team Providers Care Dock Clerk Name Role Phone Shola (RETIRED) Mike EAST Primary Care Provid er Unavailable Ramone Teixeira Jr Unavailable REASON FOR VISIT feels like he has a blockage PROBLEMS Problem Type ICD Code Onset Dates Problem Status W/U Status Risk SNOMED Code Notes Problem Generalized abdominal pain (R10.84) Active confirmed 000917559 Encounters Encounter Location Date Provider Diagnosis [facility] [address] [place] [address] 09/25/2023 Ramone Teixeira Jr Generalized abdominal pain R10.84 ASSESSMENTS Encounter Date Diagnosis Assessment Notes Treatment Notes Treatment Clinical Notes 09/25/2023 Generalized abdominal pain (ICD-10 - R10.84) PLAN OF TREATMENT Pending Test Test Name Order Date LIVER PROFILE 09/25/2023 LIPASE 09/25/2023 CBC w/o DIFF 09/25/2023 XR abdomen 3V 09/25/2023
--- OUTSIDE RECORDS SUMMARY | 2024-04-19 13:50 | XMS_ITS ---
Author Organization [facility] Address [address] [place] [address] Care Team Providers Care Bin Packer Name Role Phone Shola (RETIRED) Mike EAST Primary Care Provid er Unavailable Ramone Teixeira Jr Unavailable REASON FOR VISIT screening,hx polyps Encounters Encounter Location Date Provider Diagnosis [facility] [place] [address] [place] [phone] 06/27/2023 Ramone Teixeira Jr Encounter for screening [...]
--- OUTSIDE RECORDS SUMMARY | 2024-04-19 13:50 | XMS_ITS ---
Author Organization iMke Jolley DO, FAC Address [address] [place], [place] [phone] Care Team Providers Care Manager Equity Name Role Phone Mike Jolley Primary Care Provider [phone] Keshawn IQBAL, Lino Unavailable Unavailable ALLERGIES Allergen [...] Location Date Provider Diagnosis Mike Jolley DO, [address] [phone] 01/23/2024 Mike Jolley Hypercholesterolemia E78.00 ; Generalized [...]
--- OUTSIDE RECORDS SUMMARY | 2024-04-19 13:50 | XMS_ITS ---
Author Organization [facility] Address [address] [place] [address] Care Team Providers Care Truck Repair Supervisor Name Role Phone Shola (RETIRED) Mike EAST Primary Care Provid er Unavailable Ramone Teixeira Jr Unavailable REASON FOR VISIT pathology Encounters Encounter Location Date Provider Diagnosis [facility] [address] [place] [address] 06/29/2023 Ramone Teixeira Jr PLAN OF TREATMENT No Information
--- OUTSIDE RECORDS SUMMARY | 2024-04-19 13:51 | XMS_ITS | Continuity of Care Document ---
Author Organization [facility] [address] [place] [address] Phone [phone] Care Team Providers Care Bottom Pounder Cement Shoes Name Role Phone Mike Jolley M.D. Care Team Information Recei sudhir [phone] Problems Active Problems Provider Date Hypogonadism Lino [...] Indications Order ing Provider Date Propranolol HCL BB431yb Caps ER 24HR 4 x per week Lino Liao M.D. 07/12/2022 Testosterone Xwsqqfxhl411kv/ml Solution Inject 200MG Intramuscularly Every 2 Weeks 2ml E29.1 Libby Lopez M.D. Fpixaoftzk4mi Tablets Take 1 Tablet By Mouth 4 Times A Day as Needed Unknown Amphetamine-Dextroam zjyguabyh87ug Tablets Take 1 Tablet By Mouth 3 Times A Day as Needed Unknown Escitalopram Mvbpkfc26xz Tablets Take 1 Tablet By Mouth Every Day In The Morning Unknown Diclofenac Fzrike41cp Tablets DR Take 1 Tablet By Mouth Twice A Day as Needed Mike Jolley M.D. Aghhpnojwx00bl Capsules DR Take 1 Capsule By Mouth Every Day For 90 Days Mike Jolley M.D. Atorvastatin Yebrswj25db Tablets Take 1 Tablet By Mouth Every Day Mike Jolley M.D. Amlodipine Zktzrlkq4xj Tablets Take 1 Tablet By Mouth Every Day Lakhwinder De Souza MD Levothyroxine Rpecyj455zfl Tablets Take 1 Tablet By Mouth Every Day Mike Jolley M.D. Kxqclixot56mj Tablets Take 1 Tablet By Mouth Two [...] ng/dL 264-916 1 Laboratory test finding 01/10/2023 [facility] Testosterone 298 ng/dL (280-800 ) Laboratory test finding 07/12/2022 [facility] Testosterone 560 ng/dL (280-800 ) 2 Complete Abc With Diff 07/12/2022 [facility] [id number] Duplicate order <SEE NOTE> 3 WBC 8.1 [...] ) Lymph # 1.0 K/MM3 (0.8-3.1 ) [place]# 1.1 K/MM3 (0.4-1.3 ) Eo # 0.3 K/MM3 (0.0-0.4 ) Baso # 0.0 K/MM3 (0.0-0.1 ) Abs. Imm Gran 0.0 K/MM3 Neut 70.1 % (44-76) Lymph 12.3 % Low (15-43) Monocyte 13.2 % High (4.5-10. 5) Eo 3.5 % (0-6) Baso 0.4 % (0-2) Imm Gran 0.5 % Complete Abc With Diff 01/27/2022 [facility] WBC 4.8 K/MM3 (4.0-11. [...] ) Lymph # 0.9 K/MM3 (0.8-3.1 ) [place]# 0.7 K/MM3 (0.4-1.3 ) Eo # 0.1 K/MM3 (0.0-0.4 ) Baso # 0.0 K/MM3 (0.0-0.1 ) Abs. Imm Gran 0.0 K/MM3 Neut 62.8 % (44-76) Lymph 19.8 % (15-43) Monocyte 13.7 % High (4.5-10. 5) Eo 2.9 % (0-6) Baso 0.6 % (0-2) Imm Gran 0.2 % Laboratory test finding 01/27/2022 [facility] Testosterone 141 ng/dL Low (280-800 ) Complete Abc With Diff 01/11/2022 [facility] WBC 5.0 K/MM3 (4.0-11. [...] ) Lymph # 1.0 K/MM3 (0.8-3.1 ) [place]# 0.8 K/MM3 (0.4-1.3 ) Eo # 0.2 K/MM3 (0.0-0.4 ) Baso # 0.0 K/MM3 (0.0-0.1 ) Abs. Imm Gran 0.0 K/MM3 Neut 59.0 % (44-76) Lymph 20.4 % (15-43) Monocyte 16.8 % High (4.5-10. 5) Eo 3.2 % (0-6) Baso 0.4 % (0-2) Imm Gran 0.2 % Laboratory test finding 01/11/2022 [facility] Testosterone 345 ng/dL (280-800 ) 1 Adult male reference interval is based on a population of healthy nonobese males (BMI <30) between 19 and 39 years old. Venecia et.al. JCEM 2017,102;7771-7017. PMID: [id number]. 2 Duplicate order canc elled via interface [...]
--- OUTSIDE RECORDS SUMMARY | 2024-04-19 13:51 | XMS_ITS ---
Author Organization Mike Jolley DO, [facility] Address [address] [place], [place] [phone] Care Team Providers Care Credit Administration Officer Name Role Phone Mike Jolley Primary Care Provider Keshawn IQBAL, Lino Unavailable Unavailable REASON FOR VISIT Message SOCIAL HISTORY Sex Assigned At : Social History Observation Description Sex Assigned At Male Encounters Encounter Location Date Provider Diagnosis Mike Jolley DO, FACP [address] [place] [phone] 12/18/2023 Mike Jolley PLAN OF TREATMENT No Information
[2024-04-19 14:43] LABS: Valproate 23.8 mcg/mL (50.0-100.0)
== END 2024-04-19 13:29 | disposition home or self-care (01) ==
LOC: HO.LAB 13:28
PROVIDERS: PCP Internal Medicine; Visit Provider Registered Nurse
DX: G40.909 Epilepsy, unspecified, not intractable, without status epilepticus (principal)
CPT/HCPCS: 36415; 80164

== ENCOUNTER 2024-04-29 14:00 | Outpatient (REF) | payer MEDICARE, SELFPAY ==
[2024-04-29 15:06] LABS: Valproate 54.4 mcg/mL (50.0-100.0)
--- OUTSIDE RECORDS SUMMARY | 2024-04-29 16:43 | XMS_ITS ---
Author Organization [facility] Address [address] [place] [address] Care Team Providers Care Vocational Adviser Name Role Phone Shola (RETIRED) Mike EAST Primary Care Provid er Unavailable Ramone Teixeira Jr Unavailable [phone] REASON FOR VISIT feels like he has a blockage PROBLEMS Problem Type ICD Code Onset Dates Problem Status W/U Status Risk SNOMED Code Notes Problem Generalized abdominal pain (R10.84) Active confirmed 301316206 Encounters Encounter Location Date Provider Diagnosis [facility] [address] [place] [address] 09/25/2023 Ramone Teixeira Jr Generalized abdominal pain R10.84 ASSESSMENTS Encounter Date Diagnosis Assessment Notes Treatment Notes Treatment Clinical Notes 09/25/2023 Generalized abdominal pain (ICD-10 - R10.84) PLAN OF TREATMENT Pending Test Test Name Order Date LIVER PROFILE 09/25/2023 LIPASE 09/25/2023 CBC w/o DIFF 09/25/2023 XR abdomen 3V 09/25/2023
--- OUTSIDE RECORDS SUMMARY | 2024-04-29 16:43 | XMS_ITS | Patient Health Record ---
Author Organization [facility] Address [address] [place] [address] Care Team Providers Care Sales Team Manager Name Role Phone Shola (RETIRED) Mike EAST Primary Care Provid er Unavailable Ramone Teixeira Jr Unavailable ALLERGIES Allergen (clinical drug ingredient) Drug/Non Drug Allergy documented on EMR Reaction Allergy Type Onset Date Status cashews and permenan t hair dye (uncoded) Unknown Allergy Active RESULTS Component Value Reference Range Notes Pathology Reviewed date:06/29/2023 11:23:39 AM Interpretation: Performing Lab:[facility], [address] [place] [phone] Notes/Report: Complete Blood Count Auto Di ff Reviewed date:09/25/2023 04:22:59 PM Interpretation: Performing Lab:[facility], [address] [place] [phone] Notes/Report: White Blood Count 8.7 4.8-10.8 X10*3/uL [...] Panel Reviewed date:09/25/2023 04:22:53 PM Interpretation: Performing Lab:[facility], [address] [place] [phone] Notes/Report: Bilirubin Total 0.6 0.0-1.0 mg/dL Bilirubin Direct 0.2 0.0-0.5 mg/dL Slight Hem olysis Aspartate Amino Transferase 33 5-37 U/L Slight Hemolysis Alanine Aminotransferase 16 0-40 U/L Total Protein 8.4 6.5-8.0 g/dL Albumin Level 4.4 3.5-5.0 g/dL Alkaline Phosphatase 99 39-117 U/L Lipase Reviewed date:09/25/2023 04:22:44 PM Interpretation: Performing Lab:[facility], [address] [place] [phone] Notes/Report: Lipase 12 8-78 U/L XR abdomen min 2V Reviewed date:09/25/2023 08:55:33 PM Interpretation: Performing Lab: Notes/Report: [address] [address] XRay Report Signed Patient: Jefry Bojorquez MR#: [id number] 6 : 1945 Acct:[id number] Age/Sex: 78 / M ADM Date: 09/25/23 Loc: HO.XRAY Attending Dr: Ramone Teixeira MD Ordering Physician: Ramone Teixeira MD Date of Service: 09/25/23 Procedure(s): XR abdomen min 2V Accession Number(s): [id number] cc: Ramone Teixeira MD; Mike Jolley DO [...] in OV> 09/25/23 1641 DD/ 1454 TD/TT: Cellular Phone Repairer: SS REASON FOR REFERRAL No Information MEDICATIONS [...] W/U Status Risk SNOMED Code Notes Problem Colon cancer screening (Z12.11) Active confirmed 937970425 Problem Personal history of colonic polyps (Z86.010) Active confirmed 983364773 Problem Generalized abdominal pain (R10.84) Active confirmed 625221829 Problem Encounter for long-term (current) use of NSAIDs (Z79.1) Active confirmed 748984135 Problem Constipation, unspecified constipation type (K59.00) Active confirmed 43056634 Problem Hypertension, unspecified type (I10) Active confirmed 78901858 Encounters Encounter Location Date Provider Diagnosis [facility] [place] [address] [place], [place] [phone] 06/27/2023 Ramone Teixeira Jr Encounter for screening colonoscopy Z12.11 ; Personal history of colonic polyps Z86.010 and Colon polyps K63.5 [facility] [address] [facility] [address] [place] [address] 06/29/2023 Ramone Teixeira Jr [facility] [address] [place] [address] 09/25/2023 Ramone Teixeira Jr Generalized abdominal pain R10.84 ASSESSMENTS Encounter Date Diagnosis Assessment Notes Treatment Notes Treatment Clinical Notes 06/27/2023 Encounter for screening colonoscopy (ICD-10 - Z12.11) 06/27/2023 Personal history of colonic polyps (ICD-10 - Z86.010) 09/25/2023 Generalized abdominal pain (ICD-10 - R10.84) 06/27/2023 Colon polyps (ICD-10 - K63.5) PLAN OF TREATMENT Pending Test Test Name Order Date LIVER PROFILE 09/25/2023 LIPASE 09/25/2023 CBC w/o DIFF 09/25/2023 XR abdomen 3V 09/25/2023 Future Test Test Name Order Date COLONOSCOPY 05/23/2018 COLONOSCOPY 04/19/2023 Insurance Providers Payer Name Payer Address Payer Phone Subscriber Number Group Number Insured Name Patient Relationship to Insured Coverage Start Date Coverage End Date MEDICARE OF [place] [address] [facility] [place] [address] [id number] JEFRY BOJORQUEZ Self - patient is the insured [employer] ATTN CLAIMS [address] [place] [address] [id number] JEFRY BOJORQUEZ Self - patient is the [...]
--- OUTSIDE RECORDS SUMMARY | 2024-04-29 16:43 | XMS_ITS ---
Author Organization [facility] Address [address] [place] [address] Care Team Providers Care Radiator Repairer Name Role Phone Shola (RETIRED) Mike EAST Primary Care Provid er Unavailable Ramone Teixeira Jr Unavailable [phone] REASON FOR VISIT pathology Encounters Encounter Location Date Provider Diagnosis [facility] [address] [place] [address] 06/29/2023 Ramone Teixeira Jr PLAN OF TREATMENT No Information
--- OUTSIDE RECORDS SUMMARY | 2024-04-29 16:44 | XMS_ITS | Continuity of Care Document ---
Author Organization [facility] [address] [place] [address] Phone [phone] Care Team Providers Care Retort Condenser Attendant Name Role Phone Mike Jolley M.D. Care Team Information Recei sudhir [phone] Problems Active Problems Provider Date Hypogonadism Lino [...] Indications Order ing Provider Date Propranolol HCL [id number] Caps ER 24HR 4 x per week Lino Liao M.D. 07/12/2022 Testosterone Dkrncmrhv427jt/ml Solution Inject 200MG Intramuscularly Every 2 Weeks 2ml E29.1 Libby Lopez M.D. Svkaauvbxr1vo Tablets Take 1 Tablet By Mouth 4 Times A Day as Needed Unknown Amphetamine-Dextroam kjcnavmkj67ls Tablets Take 1 Tablet By Mouth 3 Times A Day as Needed Unknown Escitalopram Ofuowzw75cj Tablets Take 1 Tablet By Mouth Every Day In The Morning Unknown Diclofenac Oymrgl86ij Tablets DR Take 1 Tablet By Mouth Twice A Day as Needed Mike Jolley M.D. Jfyqyqltzs49bp Capsules DR Take 1 Capsule By Mouth Every Day For 90 Days Mike Jolley M.D. Atorvastatin Ttxukwy75zl Tablets Take 1 Tablet By Mouth Every Day Mike Jolley M.D. Amlodipine Lhvvxsbz3nb Tablets Take 1 Tablet By Mouth Every Day Lakhwinder De Souza MD Levothyroxine Shejaw914wnf Tablets Take 1 Tablet By Mouth Every Day Mike Jolley M.D. Ncmtfvtud86pj Tablets Take 1 Tablet By Mouth Two [...] ng/dL 264-916 1 Laboratory test finding 01/10/2023 [facility] Testosterone 298 ng/dL (280-800 ) Laboratory test finding 07/12/2022 [facility] Testosterone 560 ng/dL (280-800 ) 2 Complete Abc With Diff 07/12/2022 [facility] [id number] Duplicate order <SEE NOTE> 3 WBC 8.1 [...] ) Lymph # 1.0 K/MM3 (0.8-3.1 ) Stonewall# 1.1 K/MM3 (0.4-1.3 ) Eo # 0.3 K/MM3 (0.0-0.4 ) Baso # 0.0 K/MM3 (0.0-0.1 ) Abs. Imm Gran 0.0 K/MM3 Neut 70.1 % (44-76) Lymph 12.3 % Low (15-43) Monocyte 13.2 % High (4.5-10. 5) Eo 3.5 % (0-6) Baso 0.4 % (0-2) Imm Gran 0.5 % Complete Abc With Diff 01/27/2022 [facility] WBC 4.8 K/MM3 (4.0-11. 0) [...] ) Lymph # 0.9 K/MM3 (0.8-3.1 ) Stonewall# 0.7 K/MM3 (0.4-1.3 ) Eo # 0.1 K/MM3 (0.0-0.4 ) Baso # 0.0 K/MM3 (0.0-0.1 ) Abs. Imm Gran 0.0 K/MM3 Neut 62.8 % (44-76) Lymph 19.8 % (15-43) Monocyte 13.7 % High (4.5-10. 5) Eo 2.9 % (0-6) Baso 0.6 % (0-2) Imm Gran 0.2 % Laboratory test finding 01/27/2022 [facility] Testosterone 141 ng/dL Low (280-800 ) Complete Abc With Diff 01/11/2022 [facility] WBC 5.0 K/MM3 (4.0-11. 0) [...] ) Lymph # 1.0 K/MM3 (0.8-3.1 ) Stonewall# 0.8 K/MM3 (0.4-1.3 ) Eo # 0.2 K/MM3 (0.0-0.4 ) Baso # 0.0 K/MM3 (0.0-0.1 ) Abs. Imm Gran 0.0 K/MM3 Neut 59.0 % (44-76) Lymph 20.4 % (15-43) Monocyte 16.8 % High (4.5-10. 5) Eo 3.2 % (0-6) Baso 0.4 % (0-2) Imm Gran 0.2 % Laboratory test finding 01/11/2022 [facility] Testosterone 345 ng/dL (280-800 ) 1 Adult male reference interval is based on a population of healthy nonobese males (BMI <30) between 19 and 39 years old. Venecia et.al. JCEM 2017,102;0503-6076. PMID: [id number]. 2 Duplicate order canc elled via interface [...]
--- OUTSIDE RECORDS SUMMARY | 2024-04-29 16:44 | XMS_ITS ---
Author Organization [facility] Address [address] [place] [address] Care Team Providers Care Mechanical Assembly Name Role Phone Shola (RETIRED) Mike EAST Primary Care Provid er Unavailable Ramone Teixeira Jr Unavailable REASON FOR VISIT screening,hx polyps Encounters Encounter Location Date Provider Diagnosis [facility] Outpatient [address] [place] [phone] 06/27/2023 Ramone Teixeira Jr Encounter for screening [...]
== END 2024-04-29 14:01 | disposition home or self-care (01) ==
LOC: HO.LAB 14:00
PROVIDERS: Absent Provider Internal Medicine; PCP Internal Medicine; Referring Provider Neurological Surgery; Visit Provider Psychiatry & Neurology Neurology
DX: G40.909 Epilepsy, unspecified, not intractable, without status epilepticus (principal)
CPT/HCPCS: 36415; 80164

== ENCOUNTER 2024-05-22 11:27 | Outpatient (AMB) | payer MEDICARE, SELFPAY ==
--- NOTE | 2024-05-22 12:08 | A.OFFPC_ITS ---
Vital Signs 05/22/24 12:22 Height 5 ft 6.5 in Weight 166 lb BMI 26.4 BP 172/90 H Blood Pressure Location Rt brachial Pulse 66 Pulse Source Pulse Oximeter Temp 97.6 F Pulse Oximetry (%) 97 Intake Visit Reasons: follow up Intake Note: would like to go over meds, his shaking went to three neuro doctors waiting on fourth Allergies adhesive tape [ADHESIVE TAPE] Allergy (Intermediate, Verified 05/22/24 12:11) RASH cashew nut [CASHEW NUT] Allergy (Intermediate, Verified 05/22/24 12:11) SWELLING sulfamethoxazole [From Bactrim] Allergy (Intermediate, Verified 05/22/24 12:11) Rash trimethoprim [From Bactrim] Allergy (Intermediate, Verified 05/22/24 12:11) Rash PERM HAIR DYE Allergy (Severe, Uncoded 03/26/24 13:46) severe rash PFSH Medical History (Updated 05/22/24 @ 15:39 by Nayely Donis PA-C) Memory change Essential tremor Seizure disorder Joint pain Lesion of pituitary gland Abnormal involuntary movements Anxiety Depression BPH loc w urin obs/LUTS History of recurrent UTIs Incomplete bladder emptying ADD (attention deficit disorder) Enlarged prostate Hyperkalemia Tardive dyskinesia Hard of hearing Hypothyroid Depression Polycythemia Osteoarthritis HTN (hypertension) Asthma Testicular cancer Surgical History Status post total hip replacement, 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) History of total left hip arthroplasty (01/31/23) Hx of unilateral orchiectomy Hx of excision of mass H/O colonoscopy (~06/27/23) History of cholecystectomy History of back surgery History of right knee surgery History of left knee surgery History of intestinal surgery Family History Father Clogged artery (heart) Mother Cardiac disease Social History Household Members: None Housing: House Are you a primary resident care associate to a significant other at home: No Do you presently have visiting nurse or other home services: No Alcohol intake: current Alcohol intake frequency: a few times a week Alcohol type: beer Patient Tobacco Use Status: Never used Tobacco Substance Use Type: Marijuana Advance Directives Date on File: 02/03/23 service: No Questionnaire PHQ-9 Over the last 2 weeks, how often have you been bothered by any of the following problems? 1. Little interest or pleasure in doing things: nearly every day 2. Feeling down, depressed, or hopeless: nearly every day 3. Trouble falling or staying asleep, or sleeping too much: nearly every day 4. Feeling tired or having little energy: nearly every day 5. Poor appetite or overeating: not at all 6. Feeling bad about yourself - or that you are a failure or have let yourself or your family down: more than half the days 7. Trouble concentrating on things, such as reading the newspaper or watching television: more than half the days 8. Moving or speaking so slowly that other people could have noticed. Or the opposite - being so fidgety or restless that you have been moving around a lot more than usual: nearly every day 9. Thoughts that you would be better off or of hurting yourself in some way: not at all Total score: 19 Depression Screening Interpretation: Positive Depression Screening Done: Yes 01726 - PHQ-9 Billing: Yes Source: Developed by Drs. Mike Cortes, Louise Hanks, Jayson Luis and colleagues, with an educational muriel from [employer]. Thrive Questionnaire Date Thrive assessed: 01/03/24 I am a: Patient What is your living situation today?: I have a steady place to live Within the past 12 months, did the food you bought not last and you didn't have the money to get more?: Never true Within the past 12 months, did you worry whether your food would run out before you got money to buy more?: Never true Do you have trouble paying for medicines?: No Do you have trouble getting transportation to medical appointments?: No Do you have trouble paying your heating and electricity bill?: No Do you have trouble taking care of your child, family member or friend?: No Do you have trouble with day-to-day activities such as bathing, preparing meals, shopping, managing finances, etc.?: No Are you currently unemployed and looking for a job?: No Are you interested in more education?: No THRIVE Score: 0 AUDIT C Alcohol Use Questionnaire (AUDIT-C) 1. How often do you have a drink containing alcohol?: 4 or more times a week 2. How many drinks containing alcohol do you have on a typical day when you are drinking?: 1 or 2 3. How often do you have six or more drinks on one occasion?: Never Total Score: 4 Score Reviewed/Action Taken: No LISSY-7 AMB Questionnaire LISSY-7 Feeling nervous, anxious, or on edge: 3 = Nearly every day Not being able to stop or control worryin = More than half the days Worrying too much about different things: 3 = Nearly every day Trouble relaxin = More than half the days Being so restless that it is hard to sit still: 1 = Several days Becoming easily annoyed or irritable: 2 = More than half the days Feeling afraid as if something awful might happen: 2 = More than half the days Total LISSY-7 score (0-4 normal; 5-9 mild; 10-14 moderate; 15-21 severe): 15 Source: Developed by Drs. Mike Cortes, Louise Hanks, Jayson Luis and colleagues, with an educational muriel from [employer]. LISSY-7 Assessment Billing LISSY-7 Assessment Tool: LISSY-7 Assessment 68294 Physical exam (Primary Care) Vital Signs: Last Vital Signs Temp 97.6 F 05/22/24 12:22 Pulse 66 05/22/24 12:22 BP 172/90 H 05/22/24 12:22 Pulse Ox 97 05/22/24 12:22 BMI result Body Mass Index 26.4 Tobacco/Smoking Status: Tobacco use Status Patient Tobacco Use Status Never used Tobacco 05/22/24 12:09 PHQ-9: PHQ-9 Score PHQ-9: Total score 19 05/22/24 15:39 Depression Screening Interpretation: Positive Thrive Assessment: Date of Thrive Assessment Date Thrive assessed 01/03/24 05/22/24 12:09 Coding Level of Care Code Est Pt Level 4 (51780) Complex EM visit Add On G2211 Diagnoses Other depression F32.89 Depression Type: other depression Anxiety F41.9 Lesion of pituitary gland E23.7 Seizure disorder G40.909 Essential tremor G25.0 Memory change R41.3 Hypothyroid E03.9 Hypotestosteronism E34.9 Additional Codes LISSY-7 Assessment Billing - LISSY-7 Assessment Tool: LISSY-7 Assessment 14519 ([id number]) PHQ-9 - 70476 - PHQ-9 Billing: Yes ([id number]) Assessment & Plan Assessment & Plan (1) Depression: Code(s): F32.A - Depression, unspecified Category: Medical Qualifiers: Depression Type: other depression Qualified Code(s): F32.89 - Other specified depressive episodes Plan: Supportive psychiatric care will be necessary, considering past psychiatric involvement, adjusting therapy as needed to alleviate psychiatric distress. (2) Anxiety: Code(s): F41.9 - Anxiety disorder, unspecified Category: Medical Plan: Supportive psychiatric care will be necessary, considering past psychiatric involvement, adjusting therapy as needed to alleviate psychiatric distress. (3) Lesion of pituitary gland: Code(s): E23.7 - Disorder of pituitary gland, unspecified Category: Medical Plan: Continuing surveillance of the lesion?s growth and effect on neurological structures, with the possibility of endocrinology or neurosurgery referrals for further intervention consideration. (4) Seizure disorder: Code(s): G40.909 - Epilepsy, unspecified, not intractable, without status epilepticus Category: Medical Plan: Conflicting diagnostics necessitate further specialty consultation. Continued treatment with adjusted doses of valproic acid will be maintained, with close monitoring for any side effects or breakthrough seizures. (5) Essential tremor: Code(s): G25.0 - Essential tremor Category: Medical Plan: Ongoing tremor management using Primidone will be evaluated for efficacy, alongside further neurologic evaluation. (6) Memory change: Code(s): R41.3 - Other amnesia Category: Medical Plan: Cognitive assessments and evaluation of contributing factors such as medication effects and stress will guide intervention strategies. (7) Hypothyroid: Code(s): E03.9 - Hypothyroidism, unspecified Category: Medical Plan: Patient to continue levothyroxine 125 mcg daily, propranolol extended release 120 mg daily. Will refer to endocrinology. Condition is chronic and stable continue to monitor. (8) Hypotestosteronism: Code(s): E34.9 - Endocrine disorder, unspecified Category: Medical Plan: Patient to continue testosterine cypionate 200 mg IM every 2 weeks. Will refer to endocrinology. Condition is chronic and stable will continue to monitor. Plan Plan Patient was informed and verbally consented to the use of an ambient scribe for clinic note documentation during this visit. 1. Seizure Disorder Conflicting diagnostics necessitate further specialty consultation. Continued treatment with adjusted doses of valproic acid will be maintained, with close monitoring for any side effects or breakthrough seizures. 2. Other specified disorders of prostate N42.89 Follow-up on urologic evaluations, ensuring proactive management of any evolving prostate health concerns. 3. Anxiety And Depression Supportive psychiatric care will be necessary, considering past psychiatric involvement, adjusting therapy as needed to alleviate psychiatric distress. 4. Memory Impairment Cognitive assessments and evaluation of contributing factors such as medication effects and stress will guide intervention strategies. 5. Essential Tremor Ongoing tremor management using Primidone will be evaluated for efficacy, alongside further neurologic evaluation. 6. Hearing Loss In Right Ear ENT referral will be sought to address and potentially improve the identified hearing loss. 7. Episodic Hypertension Blood pressure management with ongoing stress management will be emphasized to control episodic hypertensive events. 8. Disorder of pituitary gland, unspecified E23.7 HCC 23 Continuing surveillance of the lesion?s growth and effect on neurological structures, with the possibility of endocrinology or neurosurgery referrals for further intervention consideration. Discussion Notes During this visit, we addressed the patient's concerns about the ongoing management of his seizure disorder and associated complications. We discussed the need for further evaluation as there have been conflicting diagnoses between multiple neurologists. It was emphasized that while Depakote remains the mainstay therapy, it requires close monitoring for adverse effects. The pituitary lesion requires monitoring, with further referral to endocrinology or neurosurgery if necessary. For anxiety and depression, ongoing psychiatric support will be arranged. We also discussed ensuring follow-up ENT evaluations to address hearing loss and routine monitoring of episodic hypertension. The patient was reassured that ongoing prostate evaluation will ensure timely management of detected lesions. Orders: Orders C Reactive Protein 05/22/24 Z00. - Encounter for general adult medical examination without abnormal findings Erythrocyte Sedimentation Rate 05/22/24 Z. - Encounter for general adult medical examination without abnormal findings Hemoglobin A1c 05/22/24 Z00. - Encounter for general adult medical examination without abnormal findings Magnesium 05/22/24 Z. - Encounter for general adult medical examination without abnormal findings Lipid Panel 05/22/24 Z. - Encounter for general adult medical examination without abnormal findings Vitamin D 25-OH Total 05/22/24 Z00. - Encounter for general adult medical examination without abnormal findings Testosterone, Total 05/22/24 Z00.00 - Encounter for general adult medical examination without abnormal findings Parathyroid Hormone Intact 05/22/24 Z00. - Encounter for general adult medical examination without abnormal findings Phosphorus 05/22/24 Z00. - Encounter for general adult medical examination without abnormal findings Creatine Kinase Total 05/22/24 Z00.00 - Encounter for general adult medical examination without abnormal findings DENISE Reflex Titer and Pattern 05/22/24 M25.50 - Pain in unspecified joint Rheumatoid Factor 05/22/24 M25.50 - Pain in unspecified joint Complete Blood Count Auto Diff 05/22/24 Z00.00 - Encounter for general adult medical examination without abnormal findings Comprehensive [place]. Panel Fast 05/22/24 Z00. - Encounter for general adult medical examination without abnormal findings Liver Panel 05/22/24 Z00. - Encounter for general adult medical examination without abnormal findings Lyme IgG/IgM w/reflex to WB 05/22/24 Z. - Encounter for general adult medical examination without abnormal findings Zinc 05/22/24 Z00. - Encounter for general adult medical examination without abnormal findings Vitamin B12 and Folate 05/22/24 Z00.00 - Encounter for general adult medical examination without abnormal findings Vitamin B1 05/22/24 Z00.00 - Encounter for general adult medical examination without abnormal findings Vitamin A 05/22/24 Z00. - Encounter for general adult medical examination without abnormal findings TSH reflex Free T4 05/22/24 Z00. - Encounter for general adult medical examination without abnormal findings PSA,Total (Free>4and<10) 05/22/24 Z00. - Encounter for general adult medical examination without abnormal findings Referrals Psychiatry Outpatient Consultation Service F32.89 - Other specified depressive episodes, F41.9 - Anxiety disorder, unspecified Endocrinology Referral E03.9 - Hypothyroidism, unspecified, E23.7 - Disorder of pituitary gland, unspecified, E34.9 - Endocrine disorder, unspecified, G25.0 - Essential tremor, R41.3 - Other amnesia Patient Instructions: Patient Instructions - Continue taking prescribed seizure medications as directed. - Schedule follow-up appointments as needed for ongoing neurologic assessments. - Monitor blood pressure regularly and note any significant changes. - Follow up with ENT specialist for hearing evaluation. - Report any worsening symptoms or new concerns immediately to healthcare providers. - Maintain appointments with psychiatric services for anxiety and depression management. - Ensure prostate-related follow-ups with your urologist are conducted timely. - Visit the lab for blood work to complete ordered tests. Scribe Plan - Not visible on output: History of Present Illness The patient is a 79-year-old male presenting with seizure disorder and tremor. Initially, anticonvulsants like Primidone and Propranolol were administered with partial success, but symptoms resurged during a family gathering, manifesting as increased instability and a fall. Diagnostic evaluations, including EEGs and MRIs, suggest focal status epilepticus and a pituitary lesion, adding complexity to his treatment. Persistent discrepancies among multiple neurologists regarding his seizure diagnosis contribute significantly to his anxiety and depression. Medications such as Depakote were prescribed but adjusted due to adverse effects like excessive sleepiness. The patient, therefore, experiences heightened anxiety not only from his condition but also from inconsistent medical evalua tions, leading to episodic hypertension related to ongoing stress. Social History - No specific social determinants of health discussed. Review of Systems - Neurological: Reports confusion regarding seizures, impaired memory, and episodic tremor. - Hearing: Reports hearing loss in the right ear over the past year. - Psychological: Reports anxiety, persistent depression, and high Patient Health Questionnaire (PHQ) scores for depression. - Symptoms requiring further evaluation: Reports excessive sleepiness and fatigue when on specific anticonvulsant therapy. Physical Exam Appearance: Alert. Oriented X3. No acute distress. Head: Normal external exam. Normocephalic. Atraumatic. Eyes: Pupils are equal, round, and reactive to light. Extraocular movements intact. Conjunctiva and sclera normal. Eyelids normal. Ears: External auditory canal normal. Tympanic membranes normal. Throat: Pharynx normal. Uvula midline. Moist mucous membranes. Neck: Normal inspection. Neck supple. Full range of motion. No adenopathy. Thyroid Normal. No meningeal signs. No neck mass noted. Cardiovascular: Normal heart rate and rhythm. Heart sound normal. No murmurs noted. Pulses normal throughout. Respiratory: No respiratory distress. Painless inspiration. Breath sounds normal. No wheezes/rales/rhonchi noted. Chest nontender. No accessory muscle usage noted or decreased air movement noted. Abdomen: Soft and nontender. Bowel sounds normal in all 4 quadrants. No distention noted. No organomegaly noted. No visible injury noted. Back: No costovertebral angle tenderness. Full range of motion noted. Skin: Skin warm and dry. Normal skin color. Normal skin turgor. No rashes/lesions/lacerations noted. Extremities: No lower extremity edema. Extremities exhibit normal range of motion. Extremities nontender. Neuro: Oriented X 3. No motor deficit. No sensory deficit. Reflexes normal. Notable for essential tremor, facial asymmetry, and memory change. Results - MRI: Pituitary lesion approximately 7 x 7 mm noted, with increased signal, extending into the suprasellar system and abutting the optic chiasm. 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
[2024-05-22 12:22] VITALS: BP 172/90; PULSE 66; TEMP 36.4; O2SAT 97; BMI 26.4
--- OUTSIDE RECORDS SUMMARY | 2024-05-22 13:54 | XMS_ITS | Patient Health Record ---
Author Organization [facility] Address [address] [place] [address] Care Team Providers Care Activities Attendant Name Role Phone Shola (RETIRED) Mike EAST Primary Care Provid er Unavailable Ramone Teixeira Jr Unavailable Allergies Allergen (clinical drug ingredient) Drug/Non Drug Allergy documented on EMR Reaction Allergy Type Onset Date Status cashews and permenan t hair dye (uncoded) Unknown Allergy Active Results Component Value Reference Range Notes Pathology Reviewed date:06/29/2023 11:23:39 AM Interpretation: Performing Lab:[facility], [address] [place] [phone] Notes/Report: ---- Name: Jefry Bojorquez Age/Sex: 78/M : 1945 Unit#: [id number] Attend Dr: Ramone Teixeira MD Re06/27/23 Status : [facility] Location: [facility] Disch: ---- SPEC : [id number] RECD : 06/27/23 STATUS: KARINA FONSECA NUM: [id number] ANDREW: 06/27/23-[address] [facility] [address]: Ramone Teixeira MD ENTERED: 06/27/23- SP TYPE: Surgical OTHR DR: Mike Jolley DO ORDERED: HE Stain/6, Gross Micro L4/2 Diagnosis A. Colon, right, bandar yp: Tubular adenoma; negative for high-grade dysplasia and carcinoma. B. Colon, rectal bandar yp: Tubular adenoma, completely excised; negative for high-grade dysplasia and carcinoma. Clinical History Pre-Op Dx: Personal h/o polyps Post-Op Dx: Colon polyps Microscopic Description Microscopic sections reviewed. Material Received A. Right colon polyp B. Rectal polyp Gross Description Received in 2 parts. Part A: Received in formalin labeled ?right colon polyp? are 2 danielle-pink irregular tissue fragments measuring 0.15 and 0.2 cm, submitted in toto in a cassette labeled A. Part B: Received in formalin labeled ?rectal polyp? with scant debris is a 0.45 cm danielle-pink papular tissue fragm ent, submitted in toto in a cassette labeled B. The debris is retained in formalin. CEDS Copies To: Ramone Teixeira MD [address] [place] [address] [address] [place] [address] CONTINUED ON NEXT PAGE ---- Name: Andrés Bojorquezian Janak Age/Sex: 78/M : 1945 Unit#: [id number] Attend Dr: Ramone Teixeira MD Re06/27/23 Status : [facility] Location: [facility] Disch: ---- SPEC : [id number] RECD : 06/27/23 STATUS: KARINA FONSECA NUM: [id number] ADNREW: 06/27/[address] [facility] [address]: Ramone Teixeira MD ENTERED: 06/27/23 45 SP TYPE: Surgical OTHR DR: Mike Jolley DO ORDERED: ENZO Stain/, Gross Micro L4/2 Copies To: (Continued) Mike Jolley DO [address] [place] [phone] ---- Signed (signature on file) Cleopatra Solis 06/28/23 1213 ---- END OF REPORT Complete Blood Count Auto Di ff Reviewed date:09/25/2023 04:22:59 PM Interpretation: Performing Lab:[facility], [address] [place] [phone] Notes/Report: White Blood Count 8.7 4.8-10.8 X10*3/uL [...] Panel Reviewed date:09/25/2023 04:22:53 PM Interpretation: Performing Lab:[facility], [address] [place] [phone] Notes/Report: Bilirubin Total 0.6 0.0-1.0 mg/dL Bilirubin Direct 0.2 0.0-0.5 mg/dL Slight Hem olysis Aspartate Amino Transferase 33 5-37 U/L Slight Hemolysis Alanine Aminotransferase 16 0-40 U/L Total Protein 8.4 6.5-8.0 g/dL Albumin Level 4.4 3.5-5.0 g/dL Alkaline Phosphatase 99 39-117 U/L Lipase Reviewed date:09/25/2023 04:22:44 PM Interpretation: Performing Lab:[facility], [address] [place] [phone] Notes/Report: Lipase 12 8-78 U/L XR abdomen min 2V Reviewed date:09/25/2023 08:55:33 PM Interpretation: Performing Lab: Notes/Report: [address] [address] XRay Report Signed Patient: Jefry Bojorquez MR#: [id number] 6 : 1945 Acct:[id number] Age/Sex: 78 / M ADM Date: 09/25/23 Loc: BIBI Attending Dr: Ramone Teixeira MD Ordering Physician: Ramone Teixeira MD Date of Service: 09/25/23 Procedure(s): XR abdomen min 2V Accession Number(s): [id number] cc: Ramone Teixeira MD; Mike Jolley DO [...] in OV> 09/25/23 1641 DD/ 1454 TD/TT: Jig Bore Operator: COLLINS [address] [address] XRay Report Signed Patient: Jefry Bojorquez MR#: [id number] 6 : 1945 Acct:[id number] Age/Sex: 78 / M ADM Date: 09/25/23 Loc: BIBI Attending Dr: Xiao Teixeira MD Ordering Physician: Ramone Teixeira MD Date of Service: 09/25/23 Procedure(s): XR abd omen min 2V Accession Number(s): [id number] cc: Ramone Teixeira MD; Mike Jolley DO EXAMINATION: XR ABDOMEN COMPLETE CLINICAL INDICATION: Abdominal pain COMPARISON: None available. TECHNIQUE: 2 views of the abdomen. FINDINGS: The bowel gas patter n is normal with no evidence of ileus or obstruction. No unus ual soft tissue calcifications are noted. Degenerative changes and scoliosis are present in the spine. There is lateral and posterio r fixation seen at L3-L4 with an interbody device. A left hip prosthesi s is partially visualized. We pelvis are present in the pelvis. No unusu al calcifications. X R/XR abdomen min 2V IMPRESSION: No evidence of bowel obstruction. Incidental findings as described above. Dictated By: Jd Casas MD Signed By: <Electronically signed by Jd Casas MD in OV> 09/25/23 1641 DD/ 1454 TD/TT: Hot Mill Tin Roller ist: SS Reason For Referral No Information Medications Medication SIG (Take, Route, Frequency, Duration) Notes [...] e a day for 30 day(s) Active Immunizations Vaccine Route Administration Date Status Comme nts Influenza Unknown 03/06/2018 Administered Influenza Unknown 11/15/2022 Administered Social History Tobacco Use: Social History Observation Description Date Details (start date - stop date) Never Smoker NA - NA Tobacco Use/Smoking Question Answer Notes Patient is [...] Never (0 point) Points 3 Interpretation Negative Problems Problem Type SNOMED Code ICD Code Onset Dates Problem Status W/U Status Risk Notes Problem 393403969 Colon cancer screening (Z12.11) Active confirmed Problem 651665563 Personal history of colonic polyps (Z86.010) Active confirmed Problem 827687459 Generalized abdominal pain (R10.84) Active confirmed Problem 845873138 Encounter for long-term (current) use of NSAIDs (Z79.1) Active confirmed Problem 23706366 Constipation, unspecified constipation type (K59.00) Active confirmed Problem 45594037 Hypertension, unspecified type (I10) Active confirmed Encounters Encounter Location Date Provider Diagnosis [facility] Outpatient [address] [place], [place] [phone] 06/27/2023 Ramone Teixeira Jr Encounter for screening colonoscopy Z12.11 ; Personal history of colonic polyps Z86.010 and Colon polyps K63.5 [facility] [address] [place] [phone] 06/29/2023 Ramone Teixeira Jr [facility] [address] [facility] [address] [place] [phone] 09/25/2023 Ramone Teixeira Jr Generalized abdominal pain R10.84 Assessments Encounter Date Diagnosis (ICD Code) Assessment Notes Treatment Notes Treatment Clinical Notes Section Notes 06/27/2023 Encounter for screening colonoscopy (ICD-10 - Z12.11) 06/27/2023 Personal history of colonic polyps (ICD-10 - Z86.010) 09/25/2023 Generalized abdominal pain (ICD-10 - R10.84) 06/27/2023 Colon polyps (ICD-10 - K63.5) Plan Of Treatment Pending Test Test Name Order Date LIVER PROFILE 09/25/2023 LIPASE 09/25/2023 CBC w/o DIFF 09/25/2023 XR abdomen 3V 09/25/2023 Future Test Test Name Order Date COLONOSCOPY 05/23/2018 COLONOSCOPY 04/19/2023 Insurance Providers Payer Name Payer Address Payer Phone Subscriber Number Group Number Insured Name Patient Relationship to Insured Coverage Start Date Coverage End Date MEDICARE OF [place] [address] [place] [address] [id number] JEFRY BOJORQUEZ Self - patient is the insured [employer] ATTN CLAIMS [address] [place] [address] [id number] JEFRY BOJORQUEZ Self - patient is the insured Medical (General) History Medical History History ICD Code Testicular cancer [...]
--- OUTSIDE RECORDS SUMMARY | 2024-05-22 13:54 | XMS_ITS ---
Author Organization [facility] Address [address] [place] [address] Care Team Providers Care Athletic Director Name Role Phone Shola (RETIRED) Mike EAST Primary Care Provid er Unavailable Ramone Teixeira Jr [phone] REASON FOR VISIT screening,hx polyps Encounters Encounter Location Date Provider Diagnosis [facility] Outpatient [address] [place] [phone] 06/27/2023 Ramone Teixeira Jr Encounter for screening colonoscopy Z12.11 ; Personal history of colonic polyps Z86.010 and Colon polyps K63.5 Assessments Encounter Date Diagnosis (ICD Code) Assessment Notes Treatment Notes Treatment Clinical Notes Section Notes 06/27/2023 Encounter for screening colonoscopy (ICD-10 - Z12.11) 06/27/2023 Personal history of colonic polyps (ICD-10 - Z86.010) 06/27/2023 Colon polyps (ICD-10 - K63.5) Plan Of Treatment No Information Progress Notes * JEFRY BOJORQUEZ LDOB:1945 (79 yo M)Acc No.[id number]:06/27/2023 COLON WITH MAC Patient:?JEFRY BOJORQUEZ Provider:?Ramone Teixeira MD :1945???Age:78 Y???Sex:Male Emile e:06/27/2023 Address:[address], [place] Pcp:Mike Jolley (RETIRE D), DO Subjective: * Chief Complaints: * ???1. Screening,hx polyps. * Medical History:? Objective: * Vitals:? Assessment: * Assessment: 1.?Encounter for screening c olonoscopy - Z12.11 (Primary)???2.?Personal history of colonic polyps - Z86.010???3.?Colon polyps - K63.5??? Plan: * Treatment: * Procedure Codes:?G0105 COLOR EC CANCR SCR; COLNSCPY HI RISK, [address] LESION REMOVAL COLONOSCOPY, 0529F INTRVL 3+YRS PTS CLNSCP DOCD * * The named appointment provid er may or may not be the originator of this progress note, and it is not deemed complete until electronically signed by the appointment provider. Sign off status: Pending * Provider:?Ramone Teixeira MD Date:?0 06/27/2023 Generated for Sukhi florence/Heidi/Iselaitting on:?05/22/2024 01:54 PM EDT
--- OUTSIDE RECORDS SUMMARY | 2024-05-22 13:54 | XMS_ITS ---
Author Organization [facility] Address [address] [place] [address] Care Team Providers Care Venture Capital Analyst Name Role Phone Shola (RETIRED) Mike EAST Primary Care Provid er Unavailable Ramone Teixeira Jr Unavailable REASON FOR VISIT feels like he has a blockage Problems Problem Type SNOMED Code ICD Code Onset Dates Problem Status W/U Status Risk Notes Problem 731398232 Generalized abdominal pain (R10.84) Active confirmed Encounters Encounter Location Date Provider Diagnosis [facility] [address] [place] [address] 09/25/2023 Ramone Teixeira Jr Generalized abdominal pain R10.84 Assessments Encounter Date Diagnosis (ICD Code) Assessment Notes Treatment Notes Treatment Clinical Notes Section Notes 09/25/2023 Generalized abdominal pain (ICD-10 - R10.84) Plan Of Treatment Pending Test Test Name Order Date LIVER PROFILE 09/25/2023 LIPASE 09/25/2023 CBC w/o DIFF 09/25/2023 XR abdomen 3V 09/25/2023 Progress Notes * JEFRY BOJORQUEZ LDOB:1945 (78 yo M)Acc No.[id number]:09/25/2023 Patient:?JEFRY BOJORQUEZ :1945???Age:78 Y???Sex:Male Address:[address], [place], [address] Subjective: * Chief Complaints: * ???Feels like he has a block age * Medical History:? * Surgical History:? * Hospitalization/Major Diagno stic Procedure:? * Medications:? Objective: Assessment: * Assessment: 1.?Generalized abdominal tylor n - R10.84? Plan: * Treatment: * * Procedure Codes:? * true * Date:? Generated for Sukhi florence/Heidi/Serenity on:?05/22/2024 01:54 PM EDT
--- OUTSIDE RECORDS SUMMARY | 2024-05-22 13:55 | XMS_ITS | Encounter Summary ---
Author Organization [facility] Address [address] [place] [address] Care Team Providers Care Television Picture Tube Rebuilder Name Role Phone Norman Lopez MD Primary Care Provider [phone] Encounter Details Date Type Department Care Team (Late st Contact Info) Description 05/06/2024 Lab Requisition [facility] - Main Lab [address] [place] [address] Ortega Mccoy Testicular hypofunction Social History Tobacco Use Types Packs/Day Years Used Date Smoking Tobacco: Never Assessed Sex and Gender Information Value Date Recorded Sex Assigned at Not on file Legal Sex Male 2:55 PM EST Gender Identity Not on file Sexual Orientation Not on file documented as of this encounter Plan of Treatment Not on file documented as of this encounter Procedures Procedure Name Priority Date/Time Associated Diagnosis Comments PROLACTIN Routine 05/06/2024 10:59 AM EDT Testicular hypofunction documented in this encounter Results * Prolactin (05/06/2024 10:59 AM EDT) Prolactin 7.80 2.50 - 17.40 ng/mL LAB CHEMISTRY METHOD 05/06/2024 3:[address] [facility] Blood Venous blood specimen / Unknown 05/06/2024 10:59 AM EDT 05/06/2024 2:36 PM EDT us Ortega Mccoy LAB BLOOD ORDERABLES Final Resul t [facility] [address] [place] [address], documented in this encounter Visit Diagnoses Diagnosis Testicular hypofunction Other testicular hypofunction documented in this encounter Care Teams Television Picture Tube Rebuilder Relationship Specialty Start Date End Date Norman Lopez MD [address] [place] [address] PCP - General Internal Medicine 05/06/24 documented as of this encounter
--- OUTSIDE RECORDS SUMMARY | 2024-05-22 13:55 | XMS_ITS | Continuity of Care Document ---
Author Organization [facility] [address] [place] [address] Phone [phone] Care Team Providers Care Collector Of Aquarium Specimens Name Role Phone Mike Jolley M.D. Care Team Information Recei sudhir [phone] Problems Active Problems Provider Date Hypogonadism Lino [...] Indications Order ing Provider Date Propranolol HCL XI886ia Caps ER 24HR 4 x per week Lino Liao M.D. 07/12/2022 Testosterone Apjriyiph868ie/ml Solution Inject 200MG Intramuscularly Every 2 Weeks 2ml E29.1 Libby Lopez M.D. Lhhkyegkvp3pi Tablets Take 1 Tablet By Mouth 4 Times A Day as Needed Unknown Amphetamine-Dextroam rorihnjbe77el Tablets Take 1 Tablet By Mouth 3 Times A Day as Needed Unknown Escitalopram Ftzstir27rh Tablets Take 1 Tablet By Mouth Every Day In The Morning Unknown Diclofenac Vouknh66cw Tablets DR Take 1 Tablet By Mouth Twice A Day as Needed Mike Jolley M.D. Augemaelgv79tm Capsules DR Take 1 Capsule By Mouth Every Day For 90 Days Mike Jolley M.D. Atorvastatin Munejym43fj Tablets Take 1 Tablet By Mouth Every Day Mike Jolley M.D. Amlodipine Wofbnyte6fi Tablets Take 1 Tablet By Mouth Every Day Lakhwinder De Souza MD Levothyroxine Kqfqta810fpz Tablets Take 1 Tablet By Mouth Every Day Mike Jolley M.D. Ussqbismv50xw Tablets Take 1 Tablet By Mouth Two Times A Day For 90 Days Elvria Morgan MD Tamsulosin HCL0.4mg Capsules Take 2 Capsules By Mouth Every Evening Unknown Vital Signs Date Vital Result Comment 08/21/2023 2:37pm BP Systolic 122 mmHg BP Diastolic 70 mmHg Heart Rate 66 /min Height 68 inches 5'8 Weight 165.25 lb BMI (Body Mass Index) 25.1 kg/m2 Results Test Acquired Date Facility Test Result H/L Range Note Testosterone 08/21/2023 [facility] Testosterone 549 ng/dL 264-916 1 Testosterone 01/10/2023 [facility] Testosterone 298 ng/dL (280-800 ) Testosterone 07/12/2022 [facility] Testosterone 560 ng/dL (280-800 ) 2 Complete Abc With Diff 07/12/2022 [facility] [id number] Duplicate order <SEE NOTE> 3 WBC 8.1 [...] ) Lymph # 1.0 K/MM3 (0.8-3.1 ) Goliad# 1.1 K/MM3 (0.4-1.3 ) Eo # 0.3 K/MM3 (0.0-0.4 ) Baso # 0.0 K/MM3 (0.0-0.1 ) Abs. Imm Gran 0.0 K/MM3 Neut 70.1 % (44-76) Lymph 12.3 % Low (15-43) Monocyte 13.2 % High (4.5-10. 5) Eo 3.5 % (0-6) Baso 0.4 % (0-2) Imm Gran 0.5 % Complete Abc With Diff 01/27/2022 [facility] WBC 4.8 K/MM3 (4.0-11. [...] ) Lymph # 0.9 K/MM3 (0.8-3.1 ) Goliad# 0.7 K/MM3 (0.4-1.3 ) Eo # 0.1 K/MM3 (0.0-0.4 ) Baso # 0.0 K/MM3 (0.0-0.1 ) Abs. Imm Gran 0.0 K/MM3 Neut 62.8 % (44-76) Lymph 19.8 % (15-43) Monocyte 13.7 % High (4.5-10. 5) Eo 2.9 % (0-6) Baso 0.6 % (0-2) Imm Gran 0.2 % Testosterone 01/27/2022 [facility] Testosterone 141 ng/dL Low (280-800 ) Complete Abc With Diff 01/11/2022 [facility] WBC 5.0 K/MM3 (4.0-11. [...] ) Lymph # 1.0 K/MM3 (0.8-3.1 ) Goliad# 0.8 K/MM3 (0.4-1.3 ) Eo # 0.2 K/MM3 (0.0-0.4 ) Baso # 0.0 K/MM3 (0.0-0.1 ) Abs. Imm Gran 0.0 K/MM3 Neut 59.0 % (44-76) Lymph 20.4 % (15-43) Monocyte 16.8 % High (4.5-10. 5) Eo 3.2 % (0-6) Baso 0.4 % (0-2) Imm Gran 0.2 % Testosterone 01/11/2022 [facility] Testosterone 345 ng/dL (280-800 ) 1 Adult male reference interval is based on a population of healthy nonobese males (BMI <30) between 19 and 39 years old. Venecia et.al. JCEM 2017,102;2262-8742. PMID: [id number]. 2 Duplicate order canc elled via interface [...]
--- OUTSIDE RECORDS SUMMARY | 2024-05-22 13:55 | XMS_ITS ---
Author Organization [facility] Address [address] [place] [address] Care Team Providers Care Livestock Agent Name Role Phone Shola (RETIRED) Mike EAST Primary Care Provid er Unavailable Ramone Teixeira Jr [phone] REASON FOR VISIT pathology Encounters Encounter Location Date Provider Diagnosis [facility] [address] [place] [address] 06/29/2023 Ramone Teixeira Jr Plan Of Treatment No Information Progress Notes * JEFRY BOJORQUEZ LDOB:1945 (78 yo M)Acc No.[id number]:06/29/2023 Patient:?JEFRY BOJORQUEZ :1945???Age:78 Y???Sex:Male Address:[address], [place], [address] * true * Date:? Generated for Jasoni naman/Heidi/eTransmitting on:?05/22/2024 01:55 PM EDT
--- OUTSIDE RECORDS SUMMARY | 2024-05-22 13:55 | XMS_ITS | Clinical Summary ---
Author Organization [facility] Address [address] [place] [address] Phone Care Team Providers Care Drilling Assistant Name Role Phone Norman Lopez MD Primary Care Provider [phone] Encounters Date Type Department Care Team Description 05/06/2024 Lab Requisition [facility] - Main Lab [address] [facility] [place] [address] Ortega Mccoy Testicular hypofunction from Last 3 Months Social History Tobacco Use Types Packs/Day Years Used Date Smoking Tobacco: Never Assessed Sex and Gender Information Value Date Recorded Sex Assigned at Not on file Legal Sex Male 2:55 PM EST Gender Identity Not on file Sexual Orientation Not on file Plan of Treatment Health Maintenance Due Date Last Done Comments DTaP,Tdap,and Td Vaccines (1 - Tdap) 1965 Pneumococcal Vaccine: 50+ Ye ars (1 of 1 - PCV) 1996 Zoster Vaccines (1 of 2) 1996 RSV Immunization Patients 60 + Years Old (1 - 1-dose 75+ series) 2021 Cholesterol Screening (Lipid Panel) 01/26/2022 Depression Screening 01/26/2022 Falls Risk Assessment 01/26/2022 Hepatitis C Screening 01/26/2022 Medicare Annual Wellness Visit 01/26/2022 Social Influencers of Health Screening 01/26/2022 COVID-19 Vaccine ( - 2023-2 5 season) 2023 Influenza Vaccine (#1) 2023 HIB Vaccines Aged Out No longer eligi ble based on patient's age to complete this topic HPV Vaccines Aged Out No longer eligi ble based on patient's age to complete this topic Hepatitis A Vaccines Aged Out No long er eligible based on patient's age to complete this topic Hepatitis B Vaccines Aged Out No long er eligible based on patient's age to complete this topic IPV Vaccines Aged Out No longer eligi ble based on patient's age to complete this topic MMR Vaccines Aged Out No longer eligi ble based on patient's age to complete this topic Meningococcal ACWY Vaccine Aged Out N o longer eligible based on patient's age to complete this topic Meningococcal B Vacine Aged Out No lo nger eligible based on patient's age to complete this topic RSV Immunization Patients Un michelle 20 months Aged Out No longer eligible b ased on patient's age to complete this topic Varicella Vaccines Aged Out No longer eligible based on patient's age to complete this topic Procedures Procedure Name Priority Date/Time Associated Diagnosis Comments PROLACTIN Routine 05/06/2024 10:59 AM EDT Testicular hypofunction from Last 3 Months Results * Prolactin (05/06/2024 10:59 AM EDT) Prolactin 7.80 2.50 - 17.40 ng/mL LAB CHEMISTRY METHOD 05/06/2024 3:36 PM EDT [facility] Blood Venous blood specimen / Unknown 05/06/2024 10:59 AM EDT 05/06/2024 2:36 PM EDT us Ortega Mccoy LAB BLOOD ORDERABLES Final Resul t [facility] [address] [place] [address], from Last 3 Months Insurance MEDICARE [facility] Care Teams Drilling Assistant Relationship Specialty Start Date End Date Norman Lopez MD [address] [place] [address] PCP - General Internal Medicine 05/06/24
== END 2024-05-22 12:56 | disposition home or self-care (01) ==
LOC: HO.HMCSH 11:27
PROVIDERS: PCP Internal Medicine; Visit Provider Physician Assistant Medical
DX: F32.89 Other specified depressive episodes (principal); F41.9 Anxiety disorder, unspecified; E23.7 Disorder of pituitary gland, unspecified; G40.909 Epilepsy, unspecified, not intractable, without status epilepticus; G25.0 Essential tremor; R41.3 Other amnesia; E03.9 Hypothyroidism, unspecified; E34.9 Endocrine disorder, unspecified

== ENCOUNTER → 2024-05-22 11:27 | Outpatient (BNVA) | payer MEDICARE, SELFPAY | PROVIDERS: PCP Internal Medicine; Visit Provider Physician Assistant Medical | DX: F32.89 Other specified depressive episodes (principal); F41.9 Anxiety disorder, unspecified; E23.7 Disorder of pituitary gland, unspecified; G25.0 Essential tremor; G40.909 Epilepsy, unspecified, not intractable, without status epilepticus; R41.3 Other amnesia; E03.9 Hypothyroidism, unspecified; E34.9 Endocrine disorder, unspecified | CPT/HCPCS: 96127; 99212 ==

== ENCOUNTER 2024-06-10 10:17 | Outpatient (AMB) | payer MEDICARE, SELFPAY ==
[2024-06-10 10:39] VITALS: BP 142/68; PULSE 71; O2SAT 97; BMI 27.0
--- NOTE | 2024-06-10 10:39 | MHC.OFFVIS ---
Vital Signs 06/10/24 10:39 Height 5 ft 6.5 in Weight 169 lb 15.622 oz BMI 27.0 BP 142/68 H Blood Pressure Location Rt brachial Position Sitting Pulse 71 Pulse Source Pulse Oximeter Pulse Oximetry (%) 97 Oxygen Delivery Method Room Air Intake Visit Reasons: Disorder of pituitary gland, unspecified Intake Note: New patient present today for Pituitary Gland. Foreign Food Cook Specialty Required: No Accompanied by: Significant Other Allergies adhesive tape [ADHESIVE TAPE] Allergy (Intermediate, Verified 06/10/24 10:40) RASH cashew nut [CASHEW NUT] Allergy (Intermediate, Verified 06/10/24 10:40) SWELLING sulfamethoxazole [From Bactrim] Allergy (Intermediate, Verified 06/10/24 10:40) Rash trimethoprim [From Bactrim] Allergy (Intermediate, Verified 06/10/24 10:40) Rash PERM HAIR DYE Allergy (Severe, Uncoded 06/10/24 10:40) severe rash Medication List - Last Reconciled 06/10/24 by Mike Yi MD acetaminophen 650 mg (2 x 325 mg) PO Q6H PRN 30 days alprazolam 1 mg PO amlodipine 5 mg PO DAILY atorvastatin 80 mg PO BEDTIME cholecalciferol (vitamin D3) 25 mcg PO DAILY cholecalciferol (vitamin D3) 10 mcg PO DAILY dextroamphetamine-amphetamine 15 mg (Adderall) 15 mg PO BID dextroamphetamine-amphetamine 30 mg 15 mg PO TID PRN duloxetine 30 mg PO DAILY escitalopram oxalate (Lexapro) 20 mg PO DAILY hydrocortisone 1% 1 appl topical DAILY PRN levothyroxine 125 mcg PO DAILY@0600 methenamine hippurate 1 g PO BID multivitamin 1 tab PO DAILY omeprazole 40 mg PO DAILY@0630 primidone 50 mg PO TID promethazine 12.5 mg PO Q6H PRN propranolol ER 120 mg PO Q24H tamsulosin 0.4 mg PO BID testosterone cypionate 200 mg IM Q2W HPI Comments Details: This is a 79-year-old male sent to endocrinology for 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 According to an MRI report sent from the patient's PCP, the adenoma has been presence of 2015 and abuts the pre chiasmatic portion of the optic chiasm. No laboratory studies are present at the time of consultation..Saw Dr. Lino Liao - prrscribed testosterone. Saw neurosurgeon at [facility] who decided not to operate. Taking testosterone IM 200 mg Q2 wks. Some issues with urine stream. Has BPH. ?? Sleep apnea . On L-T4 for 125 ug for hypothyroidism No sx of acromegaly . No sx of Ulysses's or adrenal insuffiency. The patient is a 79-year-old male presenting with a pituitary gland cyst. Initial detection was via brain imaging, and subsequent evaluations have provided conflicting reports regarding its relation to the optic chiasm. The patient does experience vision changes, but interpretations of their cause vary. His significant past medical event was testicular cancer treated successfully via right orchiectomy 28 years prior, which necessitated continuous testosterone replacement therapy. This treatment aided libido initially but has waned in effectiveness due to changes in medication regimens over the past year. He is concurrently managing a urinary tract infection. Chronic urinary symptoms and tiredness are consistent, exacerbated by documented borderline sleep apnea. Essential tremors have also been a long-standing issue. Collaborative care and endocrinological and neurological evaluations have thus far been inconclusive, prompting potential tertiary care referral consideration. - Testosterone injections, 200 mg every 2 weeks, post-orchiectomy hormonal replacement - Flomax for urinary difficulties related to benign prostatic hypertrophy - Unspecified antibiotics for urinary tract infection [facility], [facility] Medical History (Updated 05/22/24 @ 15:39 by Nayely Donis PA-C) Memory change Essential tremor Seizure disorder Joint pain Lesion of pituitary gland Abnormal involuntary movements Anxiety Depression BPH loc w urin obs/LUTS History of recurrent UTIs Incomplete bladder emptying ADD (attention deficit disorder) Enlarged prostate Hyperkalemia Tardive dyskinesia Hard of hearing Hypothyroid Depression Polycythemia Osteoarthritis HTN (hypertension) Asthma Testicular cancer Surgical History Status post total hip replacement, 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) History of total left hip arthroplasty (01/31/23) Hx of unilateral orchiectomy Hx of excision of mass H/O colonoscopy (~06/27/23) History of cholecystectomy History of back surgery History of right knee surgery History of left knee surgery History of intestinal surgery Family History Father Clogged artery (heart) Mother Cardiac disease Social History Household Members: None Housing: House Are you a primary residential child care counselor to a significant other at home: No Do you presently have visiting nurse or other home services: No Alcohol intake: current Alcohol intake frequency: a few times a week Alcohol type: beer Patient Tobacco Use Status: Never used Tobacco Substance Use Type: Marijuana Advance Directives Date on File: 02/03/23 service: No Physical Exam Vital Signs: Last Vital Signs BP 142/68 H 06/10/24 10:39 BMI result Body Mass Index 27.0 Const Other: Absence of cushingoid or acromegalic features. Absence of visual field loss by gross confrontation Assessment & Plan Assessment & Plan (1) Lesion of pituitary gland: Code(s): E23.7 - Disorder of pituitary gland, unspecified Category: Medical Plan: This is a 79-year-old white male with a reported history of pituitary microadenoma. We will try to obtain previous biochemical workup it performed from Dr. Liao 1. Pituitary gland cyst Evaluation by a pituitary neurosurgeon is necessary due to its potential effects on optic nerves and hormone production. A referral to a specialist Dr. Florence Ma at [facility] will assist in determining whether surgical intervention is warranted. 2. Testosterone replacement therapy The current regimen is to be held until we assess underlying hormonal function in 4 wks . He may require testosterone replacement considering the orchiectomy in the past but he informed me of rising PSA levels and I would need Urology clearance before resuming the testosterone. Would also need sleep apnea assessment prior to resuming testosterone. This includes evaluating cortisol and prolactin levels, ensuring no adverse effects stemming from untreated sleep apnea or prostate concerns. We will also check for pituitary gland excesssuch as IGF-1, 24 hour urine for cortisol and creatinine as well as TSH and free T4 on levothyroxine 3. Essential tremors Not sure if related to pituitary adenoma but patient has not appointment with Neurology in the future In our discussion, we covered the diagnostic ambiguity of the pituitary gland cyst and its possible optic and hormonal implications necessitating referral to a specialized unit at a tertiary care center. We discussed halting testosterone therapy to allow a clearer assessment of baseline hormonal status, particularly considering prostate health and sleep apnea implications. Essential tremors management remains conservative pending possible neurology reconsideration. We reviewed the challenge of ongoing urinary concerns aggravated by current infections, necessitating a urological synopsis corresponding to prostate medication impacts. - Stop testosterone injections immediately until further advice post-evaluation. - Schedule and attend referral consultations at a tertiary facility for pituitary evaluation. - - Undergo scheduled urine and blood analyses per provided guidelines. - Report any new or worsening symptoms promptly. Patient was informed and verbally consented to the use of an ambient scribe for clinic note documentation during this visit. Orders: Orders Prolactin 4 Weeks E23.7 - Disorder of pituitary gland, unspecified Follicle Stimulating Hormone 4 Weeks E23.7 - Disorder of pituitary gland, unspecified Thyroid Stimulating Hormone 4 Weeks E23.7 - Disorder of pituitary gland, unspecified Basic Metabolic Panel 4 Weeks E23.7 - Disorder of pituitary gland, unspecified Testosterone, Free/Total 4 Weeks E23.7 - Disorder of pituitary gland, unspecified Lutenizing Hormone 4 Weeks E23.7 - Disorder of pituitary gland, unspecified IGF-1 (Somatomedin C) 4 Weeks E23.7 - Disorder of pituitary gland, unspecified Cortisol, Free 24Hr Urine 4 Weeks E23.7 - Disorder of pituitary gland, unspecified Creatinine, 24 Hr Group 4 Weeks E23.7 - Disorder of pituitary gland, unspecified Cortisol Random 4 Weeks E23.7 - Disorder of pituitary gland, unspecified Free T4 (Free Thyroxine) 4 Weeks E23.7 - Disorder of pituitary gland, unspecified Referrals Neurosurgery Referral E23.7 - Disorder of pituitary gland, unspecified Coding Level of Care Code New Pt Level 4 (70550) Diagnoses Lesion of pituitary gland E23.7
--- OUTSIDE RECORDS SUMMARY | 2024-06-10 11:45 | XMS_ITS | Continuity of Care Document ---
Author Organization [facility] [address] [place] [address] Phone [phone] Care Team Providers Care [facility] [facility] Products Assembler Name Role Phone Mike Jolley M.D. Care Team Information Recei sudhir [phone] Problems Active Problems Provider Date Hypogonadism Lino [...] Indications Order ing Provider Date Propranolol HCL [id number] Caps ER 24HR 4 x per week Lino Liao M.D. 07/12/2022 Testosterone Seakctdkx141tj/ml Solution Inject 200MG Intramuscularly Every 2 Weeks 2ml E29.1 Libby Lopez M.D. Rzcecglpjn7mg Tablets Take 1 Tablet By Mouth 4 Times A Day as Needed Unknown Amphetamine-Dextroam tfevxsiea39po Tablets Take 1 Tablet By Mouth 3 Times A Day as Needed Unknown Escitalopram Pwszcig36hz Tablets Take 1 Tablet By Mouth Every Day In The Morning Unknown Diclofenac Idlzbk68pc Tablets DR Take 1 Tablet By Mouth Twice A Day as Needed Mike Jolley M.D. Pasetgbiqh46xe Capsules DR Take 1 Capsule By Mouth Every Day For 90 Days Mike Jolley M.D. Atorvastatin Vjuwdhi44em Tablets Take 1 Tablet By Mouth Every Day Mike Jolley M.D. Amlodipine Zovzckks6nf Tablets Take 1 Tablet By Mouth Every Day Lakhwinder De Souza MD Levothyroxine Tezvhz777hua Tablets Take 1 Tablet By Mouth Every Day Mike Jolley M.D. Mirwizzlt42xp Tablets Take 1 Tablet By Mouth Two [...] Testosterone 549 ng/dL 264-916 1 Testosterone 01/10/2023 [facility] Testosterone 298 ng/dL (280-800 ) Testosterone 07/12/2022 [facility] Testosterone 560 ng/dL (280-800 ) 2 Complete Abc With Diff 07/12/2022 [facility] [id number] Duplicate order <SEE NOTE> 3 WBC 8.1 [...] ) Lymph # 1.0 K/MM3 (0.8-3.1 ) Tift# 1.1 K/MM3 (0.4-1.3 ) Eo # 0.3 K/MM3 (0.0-0.4 ) Baso # 0.0 K/MM3 (0.0-0.1 ) Abs. Imm Gran 0.0 K/MM3 Neut 70.1 % (44-76) Lymph 12.3 % Low (15-43) Monocyte 13.2 % High (4.5-10. 5) Eo 3.5 % (0-6) Baso 0.4 % (0-2) Imm Gran 0.5 % Complete Abc With Diff 01/27/2022 [facility] WBC 4.8 K/MM3 (4.0-11. [...] ) Lymph # 0.9 K/MM3 (0.8-3.1 ) Tift# 0.7 K/MM3 (0.4-1.3 ) Eo # 0.1 K/MM3 (0.0-0.4 ) Baso # 0.0 K/MM3 (0.0-0.1 ) Abs. Imm Gran 0.0 K/MM3 Neut 62.8 % (44-76) Lymph 19.8 % (15-43) Monocyte 13.7 % High (4.5-10. 5) Eo 2.9 % (0-6) Baso 0.6 % (0-2) Imm Gran 0.2 % Testosterone 01/27/2022 [facility] Testosterone 141 ng/dL Low (280-800 ) Complete Abc With Diff 01/11/2022 [facility] WBC 5.0 K/MM3 (4.0-11. [...] ) Lymph # 1.0 K/MM3 (0.8-3.1 ) Tift# 0.8 K/MM3 (0.4-1.3 ) Eo # 0.2 K/MM3 (0.0-0.4 ) Baso # 0.0 K/MM3 (0.0-0.1 ) Abs. Imm Gran 0.0 K/MM3 Neut 59.0 % (44-76) Lymph 20.4 % (15-43) Monocyte 16.8 % High (4.5-10. 5) Eo 3.2 % (0-6) Baso 0.4 % (0-2) Imm Gran 0.2 % Testosterone 01/11/2022 [facility] Testosterone 345 ng/dL (280-800 ) 1 Adult male reference interval is based on a population of healthy nonobese males (BMI <30) between 19 and 39 years old. Venecia et.al. JCEM 2017,102;1616-9489. PMID: [id number]. 2 Duplicate order canc elled via interface [...]
--- OUTSIDE RECORDS SUMMARY | 2024-06-10 11:45 | XMS_ITS | Clinical Summary ---
Author Organization [address] [facility] Address [address] [place] [address] Phone Care Team Providers Care Supplier Quality Specialist Name Role Phone Norman Lopez MD Primary Care Provider [phone] Encounters Date Type Department Care Team Description 05/23/2024 Lab Requisition [facility] [address] [place] [address] Patricio Mijares MD Elevated prostate specific antigen (PSA) 05/06/2024 Lab Requisition [facility] [address] [place] [address] Ortega Mccoy Testicular hypofunction from [...] Vaccines (1 of 2) 1996 RSV Immunization Adult Patie nts (1 - 1-dose 75+ series) 2021 Cholesterol Screening (Lipid Panel) 01/26/2022 Depression Screening 01/26/2022 Falls Risk Assessment 01/26/2022 Hepatitis C Screening 01/26/2022 Medicare Annual Wellness Visit 01/26/2022 Social Influencers of Health Screening 01/26/2022 COVID-19 Vaccine (1 - 2023-2 5 season) 2023 Influenza Vaccine (Season Ended) 2024 HIB Vaccines Aged Out No longer eligi [...] age to complete this topic Meningococcal B Vaccine Aged Out No l onger eligible based on patient's age to complete this topic RSV Immunization Patients Un michelle 20 months Aged Out No longer eligible b ased on patient's age to complete this topic Varicella Vaccines Aged Out No longer eligible based on patient's age to complete this topic Procedures Procedure Name Priority Date/Time Associated Diagnosis Comments AP OUTSIDE CONSULT Routine 05/21/2024 Elevated prostate specific antigen (PSA) PROLACTIN Routine 05/06/2024 10:59 AM EDT Testicular hypofunction from Last 3 Months Results * Anatomic pathology outside consult (05/21/2024) Final Diagnosis A. Prostate, Left Middle Foster Biopsy: - Benign prostatic tissue. B. Prostate, Left Lateral Foster Biopsy: - Benign prostatic tissue. C. Prostate, Left Middle Middle Biopsy: - Benign prostatic tissue. D. Prostate, Left Lateral Middle Biopsy: - Benign prostatic tissue. E. Prostate, Left Middle Base Biopsy: - Benign prostatic tissue. F. Prostate, Left Lateral Base Biopsy: - Benign prostatic tissue. G. Prostate, Left Anterior Peripheral Zone Biopsy: - Benign prostatic tissue. H. Prostate, Right Middle Foster Biopsy: - Benign prostatic tissue. I. Prostate, Right Lateral Foster Biopsy: - Benign prostatic tissue. J. Prostate, Right Middle Middle Biopsy: - Benign prostatic tissue. K. Prostate, Right Lateral Middle Biopsy: - Benign prostatic tissue. L. Prostate, Right Middle Base Biopsy: - Benign prostatic tissue. M. Prostate, Right Lateral Base Biopsy: - Benign prostatic tissue. 05/24/2024 1:05 PM EDT [facility] Clinical Information Elevated PSA = 8.5 (04/26/24) [id number] 05/24/2024 1:05 PM EDT [facility] Gross Description A. Prostate, Left Middle Foster Biopsy: Received, properly labeled, are two H and E stained slides and two unstained slides. B. Prostate, Left Lateral Foster Biopsy: Received, properly labeled, are two H and E stained slides and two unstained slides. C. Prostate, Left Middle Middle Biopsy: Received, properly labeled, are two H and E stained slides and two unstained slides. D. Prostate, Left Lateral Middle Biopsy: Received, properly labeled, are two H and E stained slides and two unstained slides. E. Prostate, Left Middle Base Biopsy: Received, properly labeled, are two H and E stained slides and two unstained slides. F. Prostate, Left Lateral Base Biopsy: Received, properly labeled, are two H and E stained slides and two unstained slides. G. Prostate, Left Anterior Peripheral Zone Biopsy: Received, properly labeled, are two H and E stained slides and two unstained slides. H. Prostate, Right Middle Foster Biopsy: Received, properly labeled, are two H and E stained slides and two unstained slides. I. Prostate, Right Lateral Foster Biopsy: Received, properly labeled, are two H and E stained slides and two unstained slides. J. Prostate, Right Middle Middle Biopsy: Received, properly labeled, are two H and E stained slides and two unstained slides. K. Prostate, Right Lateral Middle Biopsy: Received, properly labeled, are two H and E stained slides and two unstained slides. L. Prostate, Right Middle Base Biopsy: Received, properly labeled, are two H and E stained slides and two unstained slides. M. Prostate, Right Lateral Base Biopsy: Received, properly labeled, are two H and E stained slides and two unstained slides. /al 05/24/2024 1:05 PM EDT [facility] Disclaimer Unless otherwise specified, all tissue is 10% NB formalin fixed and paraffin embedded. Technical pathology services provided by [facility] at [address] [place] [address] [address], [place] [address] (CLIA #[id number]/S nilson Shi MD, Architecture Instructor) 05/24/2024 1:05 PM EDT [facility] Tissue Prostate / Unknown 05/21/20242024 9:57 AM EDT Tissue specimen (specimen) Prostate / Unknown 05/21/2024 05/23/2024 9: 57 AM EDT Tissue specimen (specimen) Prostate / Unknown 05/21/2024 05/23/2024 9: 57 AM EDT Tissue specimen (specimen) Prostate / Unknown 05/21/2024 05/23/2024 9: 57 AM EDT Tissue specimen (specimen) Prostate / Unknown 05/21/2024 05/23/2024 9: 57 AM EDT Tissue specimen (specimen) Prostate / Unknown 05/21/2024 05/23/2024 9: 57 AM EDT Tissue specimen (specimen) Prostate / Unknown 05/21/2024 05/23/2024 9: 57 AM EDT Tissue specimen (specimen) Prostate / Unknown 05/21/2024 05/23/2024 9: 57 AM EDT Tissue specimen (specimen) Prostate / Unknown 05/21/2024 05/23/2024 9: 57 AM EDT Tissue specimen (specimen) Prostate / Unknown 05/21/2024 05/23/2024 9: 57 AM EDT Tissue specimen (specimen) Prostate / Unknown 05/21/2024 05/23/2024 9: 57 AM EDT Tissue specimen (specimen) Prostate / Unknown 05/21/2024 05/23/2024 9: 57 AM EDT Tissue specimen (specimen) Prostate / Unknown 05/21/2024 05/23/2024 9: 57 AM EDT us Patricio Mijares MD LAB PATHOLOGY ORDERABLES Fi nal Result [facility]) [facility] [address] [place] [address], * Prolactin (05/06/2024 10:59 AM EDT) Prolactin 7.80 2.50 - 17.40 ng/mL LAB CHEMISTRY METHOD 05/06/2024 3:36 PM EDT [facility] Blood Venous blood specimen / Unknown 05/06/2024 10:59 AM EDT 05/06/2024 2:36 PM EDT us Ortega Mccoy LAB BLOOD ORDERABLES Final Resul t [facility] ([facility]) [facility] [address] [place] [address], from Last 3 Months Insurance MEDICARE [facility] Care Teams Supplier Quality Specialist Relationship Specialty Start Date End Date Norman Lopez MD [address] [place] [id number] PCP - General Internal Medicine 05/06/24
--- OUTSIDE RECORDS SUMMARY | 2024-06-10 11:45 | XMS_ITS | Encounter Summary ---
Author Organization [facility] Address [address] [place] [address] Care Team Providers Care Internet Site Designer Name Role Phone Norman Lopez MD Primary Care Provider [phone]- [phone] Encounter Details Date Type Department Care Team (Late st Contact Info) Description 05/23/2024 Lab Requisition [facility] Lab [address] [facility] [place] [address] Patricio Mijares MD [address] [place], [place] [id number] Elevated prostate specific antigen (PSA) Social History Tobacco Use Types Packs/Day Years [...] Routine 05/21/2024 Elevated prostate specific antigen (PSA) documented in this encounter Results * Anatomic pathology outside consult (05/21/2024) Final Diagnosis A. Prostate, Left Middle [place]gom[place] Biopsy: - Benign prostatic tissue. B. Prostate, Left Lateral [place]gom[place] Biopsy: - Benign prostatic tissue. C. Prostate, Left Middle Middle Biopsy: - Benign prostatic tissue. D. Prostate, Left Lateral Middle Biopsy: - Benign prostatic tissue. E. Prostate, Left Middle Base Biopsy: - Benign prostatic tissue. F. Prostate, Left Lateral Base Biopsy: - Benign prostatic tissue. G. Prostate, Left Anterior Peripheral Zone Biopsy: - Benign prostatic tissue. H. Prostate, Right Middle [place] Biopsy: - Benign prostatic tissue. I. Prostate, Right Lateral [place]gom[place] Biopsy: - Benign prostatic tissue. J. Prostate, Right Middle Middle Biopsy: - Benign prostatic tissue. K. Prostate, Right Lateral Middle Biopsy: - Benign prostatic tissue. L. Prostate, Right Middle Base Biopsy: - Benign prostatic tissue. M. Prostate, Right Lateral Base Biopsy: - Benign prostatic tissue. 05/24/2024 1:05 PM EDT [facility] Clinical Information Elevated PSA = 8.5 (04/26/24) [id number] 05/24/2024 1:05 PM EDT [facility] Gross Description A. Prostate, Left Middle Ingomar Biopsy: Received, properly labeled, are two H and E stained slides and two unstained slides. B. Prostate, Left Lateral Ingomar Biopsy: Received, properly labeled, are two H [...] two unstained slides. H. Prostate, Right Middle [place]gom[place] Biopsy: Received, properly labeled, are two H and E stained slides and two unstained slides. I. Prostate, Right Lateral Ingomar Biopsy: Received, properly labeled, are two H [...] unstained slides. /al 05/24/2024 1:05 PM EDT [facility] Disclaimer Unless otherwise specified, all tissue is 10% NB formalin fixed and paraffin embedded. Technical pathology services provided by [facility] at [address] [place] [address] [address], [place] [address] (CLIA #[id number]/S nilson Shi MD, Director Of Recreation Therapy) 05/24/2024 1:05 PM EDT [facility] Tissue Prostate / Unknown 05/21/20242024 9:57 [...] MD LAB PATHOLOGY ORDERABLES Fi nal Result [facility] [address] [place] [address], documented in this encounter Visit Diagnoses Diagnosis Elevated prostate specific antigen (PSA) documented in this encounter Care Teams Internet Site Designer Relationship Specialty Start Date End Date Norman Lopez MD [address] [place] [address] PCP - General Internal Medicine 05/06/24 documented as of this encounter
--- OUTSIDE RECORDS SUMMARY | 2024-06-10 11:45 | XMS_ITS | Encounter Summary ---
Author Organization [facility] Address [address] [place] [address] Care Team Providers Care Manager [employer]able [employer] Name Role Phone Norman Lopez MD Primary Care Provider [phone]- [phone] Encounter Details Date Type Department Care Team (Late st Contact Info) Description 05/06/2024 Lab Requisition [facility] - Main Lab [address] [place] [address] Ortega Mccoy Testicular hypofunction Social [...] LAB CHEMISTRY METHOD 05/06/2024 3:36 PM EDT [facility] Blood Venous blood specimen / Unknown 05/06/2024 10:59 AM EDT 05/06/2024 2:36 PM EDT us Ortega Mccoy LAB BLOOD ORDERABLES Final Resul t [facility] [address] [place] [address], documented in this encounter Visit Diagnoses Diagnosis Testicular hypofunction Other testicular hypofunction documented in this encounter Care Teams Manager [employer]able [employer] Relationship Specialty Start Date End Date Norman Lopez MD [address] [place] [address] PCP - General Internal Medicine 05/06/24 documented as of this encounter
== END 2024-06-10 11:53 | disposition home or self-care (01) ==
LOC: HO.ENCR 10:19
PROVIDERS: PCP Internal Medicine; Visit Provider Internal Medicine Endocrinology, Diabetes & Metabolism
DX: E23.7 Disorder of pituitary gland, unspecified (principal)
CPT/HCPCS: 99204

== ENCOUNTER → 2024-06-10 10:17 | Outpatient (BNVA) | payer MEDICARE, SELFPAY | PROVIDERS: PCP Internal Medicine; Visit Provider Internal Medicine Endocrinology, Diabetes & Metabolism | DX: E23.7 Disorder of pituitary gland, unspecified (principal) | CPT/HCPCS: 99202 ==

== ENCOUNTER 2024-07-09 11:40 | Outpatient (REF) | payer MEDICARE, SELFPAY ==
[2024-07-09 12:24] LABS: MANUAL DIFF FLAG NO
[2024-07-09 13:01] LABS: Basophils Percent Auto 0.4 % (0-2); Eosinophils Absolute Auto 0.2 X10*3/uL (0.0-0.4); Eosinophils Percent Auto 2.3 % (0-4); Hematocrit 45.5 % (42.0-52.0); Imm Gran Abs Auto 0.03 X10*3/uL (0.00-0.03); Imm Gran Pct Auto 0.4 % (0.0-0.4); Lymphocytes Absolute Auto 0.8 X10*3/uL (1.2-4.9); Lymphocytes Percent Auto 11.2 % (20-40); Mean Corpuscular HGB Conc 33.2 g/dl (31.0-36.0); Mean Corpuscular Hemoglobin 30.7 pg (27.0-33.0); Mean Corpuscular Volume 92.5 fL (80.0-98.0); Mean Platelet Volume 10.7 fL (9.4-12.4); Monocytes Absolute Auto 0.7 X10*3/uL (0.1-1.2); Monocytes Percent Auto 10.7 % (2-11); Neutrophils Absolute Auto 5.2 x10*3/uL (2.0-8.3); Platelet Count 278 X10*3/uL (160-400); Red Blood Count 4.92 X10*6/uL (4.60-5.80); Red Cell Distribution Width 14.2 % (11.0-16.0); White Blood Count 6.9 X10*3/uL (4.8-10.8)
[2024-07-09 13:02] LABS: Hemoglobin 15.1 g/dl (14.0-18.0)
--- OUTSIDE RECORDS SUMMARY | 2024-07-09 13:09 | XMS_ITS | Encounter Summary ---
Author Organization [facility] Address [address] [place] [address] Care Team Providers Care Sales Estimator Name Role Phone Norman Lopez MD Primary Care Provider +1- [phone] Encounter Details Date Type Department Care Team (Late st Contact Info) Description 05/23/2024 Lab Requisition [facility] - Main Lab [address] [facility] [place] [address] Patricio Mijares MD [address] [place], [place] [id number] Elevated prostate specific antigen (PSA) Social History [...] (05/21/2024) Final Diagnosis A. Prostate, Left Middle [place] Biopsy: - Benign prostatic tissue. B. Prostate, Left Lateral [place] Biopsy: - Benign prostatic tissue. C. Prostate, Left Middle Middle Biopsy: - Benign prostatic tissue. D. Prostate, Left Lateral Middle Biopsy: - Benign prostatic tissue. E. Prostate, Left Middle Base Biopsy: - Benign prostatic tissue. F. Prostate, Left Lateral Base Biopsy: - Benign prostatic tissue. G. Prostate, Left Anterior Peripheral Zone Biopsy: - Benign prostatic tissue. H. Prostate, Right Middle [place] Biopsy: - Benign prostatic tissue. I. Prostate, Right Lateral [place] Biopsy: - Benign prostatic tissue. J. Prostate, Right Middle Middle Biopsy: - Benign prostatic tissue. K. Prostate, Right Lateral Middle Biopsy: - Benign prostatic tissue. L. Prostate, Right Middle Base Biopsy: - Benign prostatic tissue. M. Prostate, Right Lateral Base Biopsy: - Benign prostatic tissue. 05/24/2024 1:05 PM EDT [facility] Clinical Information Elevated PSA = 8.5 (04/26/24) [id number] 05/24/2024 1:05 PM EDT [facility] Gross Description A. Prostate, Left Middle [place] Biopsy: Received, properly labeled, are two H and E stained slides and two unstained slides. B. Prostate, Left Lateral [place] Biopsy: Received, properly labeled, are two H [...] two unstained slides. H. Prostate, Right Middle [place] Biopsy: Received, properly labeled, are two H and E stained slides and two unstained slides. I. Prostate, Right Lateral [place] Biopsy: Received, properly labeled, are two H [...] unstained slides. /al 05/24/2024 1:05 PM EDT [facility] Disclaimer Unless otherwise specified, all tissue is 10% NB formalin fixed and paraffin embedded. Technical pathology services provided by [facility] at [address] [place] [address] [address], [place] [address] (CLIA #[id number]/S nilson Shi MD, Movie Stunt Performer) 05/24/2024 1:05 PM EDT [facility] Tissue Prostate / Unknown 05/21/20242024 [...] MD LAB PATHOLOGY ORDERABLES Fi nal Result [facility] [address] [place] [address], documented in this encounter Visit Diagnoses Diagnosis Elevated prostate specific antigen (PSA) documented in this encounter Care Teams Sales Estimator Relationship Specialty Start Date End Date Norman Lopez MD [address] [place] [address] PCP - General Internal Medicine 05/06/24 documented as of this encounter
--- OUTSIDE RECORDS SUMMARY | 2024-07-09 13:09 | XMS_ITS | Clinical Summary ---
Author Organization [address] [facility] Address [address] [place] [address] Phone Care Team Providers Care Commercial Real Estate Underwriter Name Role Phone Norman Lopez MD Primary Care Provider +1- [phone] Encounters Date Type Department Care Team Description 05/23/2024 Lab Requisition [facility] Lab [address] [place] [address] Patricio Mijares MD Elevated prostate specific antigen (PSA) 05/06/2024 Lab Requisition [facility] Lab [address] [place] [address] Ortega Mccoy Testicular hypofunction from [...] (05/21/2024) Final Diagnosis A. Prostate, Left Middle [place] Biopsy: - Benign prostatic tissue. B. Prostate, Left Lateral [place] Biopsy: - Benign prostatic tissue. C. Prostate, Left Middle Middle Biopsy: - Benign prostatic tissue. D. Prostate, Left Lateral Middle Biopsy: - Benign prostatic tissue. E. Prostate, Left Middle Base Biopsy: - Benign prostatic tissue. F. Prostate, Left Lateral Base Biopsy: - Benign prostatic tissue. G. Prostate, Left Anterior Peripheral Zone Biopsy: - Benign prostatic tissue. H. Prostate, Right Middle [place] Biopsy: - Benign prostatic tissue. I. Prostate, Right Lateral [place] Biopsy: - Benign prostatic tissue. J. Prostate, Right Middle Middle Biopsy: - Benign prostatic tissue. K. Prostate, Right Lateral Middle Biopsy: - Benign prostatic tissue. L. Prostate, Right Middle Base Biopsy: - Benign prostatic tissue. M. Prostate, Right Lateral Base Biopsy: - Benign prostatic tissue. 05/24/2024 1:05 PM EDT [facility] Clinical Information Elevated PSA = 8.5 (04/26/24) [id number] 05/24/2024 1:05 PM EDT [facility] Gross Description A. Prostate, Left Middle [place] Biopsy: Received, properly labeled, are two H and E stained slides and two unstained slides. B. Prostate, Left Lateral [place] Biopsy: Received, properly labeled, are two H [...] two unstained slides. H. Prostate, Right Middle [place] Biopsy: Received, properly labeled, are two H and E stained slides and two unstained slides. I. Prostate, Right Lateral [place] Biopsy: Received, properly labeled, are two H [...] unstained slides. /al 05/24/2024 1:05 PM EDT [facility] Disclaimer Unless otherwise specified, all tissue is 10% NB formalin fixed and paraffin embedded. Technical pathology services provided by [facility] at [address] [place] [address] [address], [place] [address] (CLIA #[id number]/S nilson Shi MD, Facility Coordinator) 05/24/2024 1:05 PM EDT [facility] Tissue Prostate / Unknown 05/21/20242024 [...] MD LAB PATHOLOGY ORDERABLES Fi nal Result [facility] [address] [place] [address], * Prolactin (05/06/2024 10:59 AM EDT) Prolactin 7.80 2.50 - 17.40 ng/mL LAB CHEMISTRY METHOD 05/06/2024 3:36 PM EDT [facility] Blood Venous blood specimen / Unknown 05/06/2024 10:59 AM EDT 05/06/2024 2:36 PM EDT us Ortega Mccoy LAB BLOOD ORDERABLES Final Resul t [facility] ([facility] [address] [place] [address], from Last 3 Months Insurance MEDICARE [facility] Care Teams Commercial Real Estate Underwriter Relationship Specialty Start Date End Date Norman Lopez MD [address] [place] [phone] PCP - General Internal Medicine 05/06/24
--- OUTSIDE RECORDS SUMMARY | 2024-07-09 13:09 | XMS_ITS | Continuity of Care Document ---
Author Organization [facility] [address] [facility] [address] [place] [address] Phone [phone] Care Team Providers Care Timber Treating Tank Operator Name Role Phone Mike Jolley M.D. Care Team Information Recei sudhir [phone] Problems Active Problems Provider Date Hypogonadism Lino Liao M.D. Onset: Essential hypertension Lino Lioa M.D. Ons et: 01/11/2022 H/O: depression Lino [...] Indications Order ing Provider Date Propranolol HCL [id number] Caps ER 24HR 4 x per week Lino Liao M.D. 07/12/2022 Testosterone Sxbpmkplf962pr/ml Solution Inject 200MG Intramuscularly Every 2 Weeks 2ml E29.1 Libby Lopez M.D. Slizwrjdtb0rk Tablets Take 1 Tablet By Mouth 4 Times A Day as Needed Unknown Amphetamine-Dextroam esupanpqt61qa Tablets Take 1 Tablet By Mouth 3 Times A Day as Needed Unknown Escitalopram Wozrglk00cq Tablets Take 1 Tablet By Mouth Every Day In The Morning Unknown Diclofenac Ehegzh59jz Tablets DR Take 1 Tablet By Mouth Twice A Day as Needed Mike Jolley M.D. Bwsorobteb15fy Capsules DR Take 1 Capsule By Mouth Every Day For 90 Days Mike Jolley M.D. Atorvastatin Yzqktrz33mj Tablets Take 1 Tablet By Mouth Every Day Mike Jolley M.D. Amlodipine Whdrobwl0eh Tablets Take 1 Tablet By Mouth Every Day Lakhwinder De Souza MD Levothyroxine Ezrrzv724jpv Tablets Take 1 Tablet By Mouth Every Day Mike Jolley M.D. Lawwripbm52mp Tablets Take 1 Tablet By Mouth Two [...] Testosterone 549 ng/dL 264-916 1 Testosterone 01/10/2023 [facility] Testosterone 298 ng/dL (280-800 ) Testosterone 07/12/2022 [facility] Testosterone 560 ng/dL (280-800 ) 2 Complete Abc With Diff 07/12/2022 [facility] [id number] Duplicate order <SEE NOTE> 3 WBC 8.1 [...] ) Lymph # 1.0 K/MM3 (0.8-3.1 ) Pitt# 1.1 K/MM3 (0.4-1.3 ) Eo # 0.3 K/MM3 (0.0-0.4 ) Baso # 0.0 K/MM3 (0.0-0.1 ) Abs. Imm Gran 0.0 K/MM3 Neut 70.1 % (44-76) Lymph 12.3 % Low (15-43) Monocyte 13.2 % High (4.5-10. 5) Eo 3.5 % (0-6) Baso 0.4 % (0-2) Imm Gran 0.5 % Complete Abc With Diff 01/27/2022 [facility] WBC 4.8 K/MM3 (4.0-11. 0) [...] ) Lymph # 0.9 K/MM3 (0.8-3.1 ) Pitt# 0.7 K/MM3 (0.4-1.3 ) Eo # 0.1 K/MM3 (0.0-0.4 ) Baso # 0.0 K/MM3 (0.0-0.1 ) Abs. Imm Gran 0.0 K/MM3 Neut 62.8 % (44-76) Lymph 19.8 % (15-43) Monocyte 13.7 % High (4.5-10. 5) Eo 2.9 % (0-6) Baso 0.6 % (0-2) Imm Gran 0.2 % Testosterone 01/27/2022 [facility] Testosterone 141 ng/dL Low (280-800 ) Complete Abc With Diff 01/11/2022 [facility] WBC 5.0 K/MM3 (4.0-11. 0) [...] ) Lymph # 1.0 K/MM3 (0.8-3.1 ) Pitt# 0.8 K/MM3 (0.4-1.3 ) Eo # 0.2 K/MM3 (0.0-0.4 ) Baso # 0.0 K/MM3 (0.0-0.1 ) Abs. Imm Gran 0.0 K/MM3 Neut 59.0 % (44-76) Lymph 20.4 % (15-43) Monocyte 16.8 % High (4.5-10. 5) Eo 3.2 % (0-6) Baso 0.4 % (0-2) Imm Gran 0.2 % Testosterone 01/11/2022 [facility] Testosterone 345 ng/dL (280-800 ) 1 Adult male reference interval is based on a population of healthy nonobese males (BMI <30) between 19 and 39 years old. Venecia et.al. JCEM 2017,102;4936-9333. PMID: [id number]. 2 Duplicate order canc elled via interface [...]
--- OUTSIDE RECORDS SUMMARY | 2024-07-09 13:09 | XMS_ITS | Encounter Summary ---
Author Organization [facility] Address [address] [place] [address] Care Team Providers Care Desktop Administrator Name Role Phone Norman Lopez MD Primary Care Provider +1- [phone] Encounter Details Date Type Department Care Team (Late st Contact Info) Description 05/06/2024 Lab Requisition [facility] - Main Lab [address] [place] [address] Ortega Mccoy Testicular hypofunction Social [...] LAB CHEMISTRY METHOD 05/06/2024 3:36 PM EDT [facility] Blood Venous blood specimen / Unknown 05/06/2024 10:59 AM EDT 05/06/2024 2:36 PM EDT us Ortega Mccoy LAB BLOOD ORDERABLES Final Resul t [facility] [address] [place] [address], documented in this encounter Visit Diagnoses Diagnosis Testicular hypofunction Other testicular hypofunction documented in this encounter Care Teams Desktop Administrator Relationship Specialty Start Date End Date Norman Lopez MD [address] [place] [address] PCP - General Internal Medicine 05/06/24 documented as of this encounter
[2024-07-09 13:26] LABS: Alanine Aminotransferase 16 U/L (0-40); Albumin Level 4.2 g/dL (3.5-5.0); Alkaline Phosphatase 106 U/L (39-117); Anion Gap 12 (12-20); Aspartate Amino Transferase 34 U/L (5-37); Bilirubin Direct 0.2 mg/dL (0.0-0.5); Bilirubin Total 0.5 mg/dL (0.0-1.0); Blood Urea Nitrogen 19 mg/dL (9-16); C Reactive Protein 0.85 mg/dL (< or = 0.50); Calcium 9.8 mg/dL (8.4-10.2); Carbon Dioxide 29 mmol/L (22-29); Chloride 100 mmol/L (96-108); Cholesterol 146 mg/dL (<200); Estimated Glomerular Filt Rate > 60; Glucose Fasting 117 mg/dL (60-99); Glucose Random 117 mg/dL (60-115); HDL Cholesterol 45 mg/dL (>40); LDL Cholesterol Calculated 72 mg/dL (<100); Magnesium 1.8 mg/dL (1.6-2.6); Phosphorus 2.9 mg/dL (2.7-4.5); Potassium 4.1 mmol/L (3.3-5.1); Sodium 137 mmol/L (135-145); Triglycerides 148 mg/dL (<150)
[2024-07-09 13:27] LABS: Erythrocyte Sedimentation Rate 49 MM/HR (0-15); TSH reflex Free T4 0.99 uIU/mL (0.32-4.0); Vitamin D 25-OH Total 46.6 ng/mL (>30)
[2024-07-09 13:29] LABS: PSA,Total (Free>4and<10) 7.89 ng/mL (0.00-4.00)
[2024-07-09 13:38] LABS: Folate 17.9 ng/mL (> or = 4.0); Vitamin B12 959 pg/mL (200-900)
[2024-07-09 13:40] LABS: Free T4 (Free Thyroxine) 1.37 ng/dL (0.71-1.85); Thyroid Stimulating Hormone 1.04 uIU/mL (0.32-4.0)
[2024-07-09 14:32] LABS: Creatinine, mg/dL 65.13
[2024-07-09 14:33] LABS: Creatinine, 24Hr Urine 1.2 G/Day (1.0-2.0); Total Volume 24 Hour Urine 1850 mL
[2024-07-09 15:01] LABS: Estimated Average Glucose 111 mg/dL; Hemoglobin A1C 140.6348 umol/L; Hemoglobin A1c % 5.5 % (<6.0); Total Hemoglobin (HGBA1C) 3836.6022 umol/L
[2024-07-09 16:02] LABS: Cortisol Random 10.8 ug/dL
[2024-07-09 16:11] LABS: Rheumatoid Factor < 13.0 IU/mL (<15.0)
[2024-07-10 05:28] LABS: Lyme Abs Screen <0.90 index
[2024-07-10 05:44] LABS: Follicle Stimulating Hormone 29.6 mIU/mL (1.4-12.8); Prolactin 4.1 ng/mL (2.0-18.0)
[2024-07-10 12:23] LABS: Parathyroid Hormone Intact 50.3 pg/mL (8.7-77.1)
[2024-07-10 12:43] LABS: Free Prostate Spec Ag 0.3 ng/mL; Percent Free Prostate Spec Ag 5 % (calc) (>25)
[2024-07-11 13:28] LABS: Anti Nuclear Antibody Screen POSITIVE (NEGATIVE); Anti Nuclear Antibody Titer 1:40 titer
[2024-07-11 17:28] LABS: Zinc 91 mcg/dL (60-130)
[2024-07-12 18:13] LABS: Vitamin A 58 mcg/dL (38-98)
[2024-07-14 17:48] LABS: IGF-1 (Somatomedin C) 97 ng/mL (34-245); IGF-1 Z Score (Male) -0.1 SD (-2.0 - +2.0)
[2024-07-14 19:59] LABS: Vitamin B1 32 nmol/L (8-30)
[2024-07-14 23:38] LABS: Testosterone, Total 33 ng/dL (250-1100)
[2024-07-16 23:03] LABS: Cortisol Free, 24 Hr Urine 15.2 mcg/24 h (4.0-50.0); Creatinine, 24 Hr Urine 1.26 g/24 h (0.50-2.15); Total Volume, 24 Hr Urine 1850 mL
[2024-07-17 14:48] LABS: Testosterone, Free 2.3 pg/mL (30.0-135.0); Testosterone, Total 30 ng/dL (250-1100)
== END 2024-07-09 11:41 | disposition home or self-care (01) ==
LOC: HO.LAB 11:40
PROVIDERS: Absent Provider Internal Medicine Endocrinology, Diabetes & Metabolism; PCP Internal Medicine; Visit Provider Physician Assistant Medical
DX: Z00.00 Encounter for general adult medical examination without abnormal findings (principal); M25.50 Pain in unspecified joint; E23.7 Disorder of pituitary gland, unspecified; Z12.5 Encounter for screening for malignant neoplasm of prostate; Z13.1 Encounter for screening for diabetes mellitus; Z13.6 Encounter for screening for cardiovascular disorders
CPT/HCPCS: 36415; 80048; 80053; 80061; 80076; 82248; 82306; 82530; 82533; 82550; 82570; 82607; 82746; 83001; 83002; 83036; 83735; 83970; 84100; 84146; 84153; 84154; 84305; 84402; 84403; 84425; 84439; 84443; 84590; 84630; 85025; 85652; 86038; 86039; 86140; 86431; 86617; 86618

== ENCOUNTER 2024-07-29 11:18 | Outpatient (AMB) | payer MEDICARE, SELFPAY ==
--- NOTE | 2024-07-29 11:30 | A.OFFVIS_ITS ---
Vital Signs 07/29/24 11:32 Height 5 ft 6.5 in Weight 159 lb 13.362 oz BMI 25.4 BP 148/66 H Blood Pressure Location Rt brachial Position Sitting Pulse 86 Pulse Source Pulse Oximeter Pulse Oximetry (%) 98 Oxygen Delivery Method Room Air Intake Visit Reasons: Testosterone concerns Intake Note: Patient present today for Testosterone concerns. Patient reports he stopped the Testosterone on June 05, 2024 and lost 12 pounds. States Urologist notified him that he can re-start the Testosterone and stated Dr. Yi notified him to hold off until sleep-study is done. Patient c/o of weight loss and lack of energy and would like to re-start Tesosterone. 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 According to an MRI report sent from the patient's PCP, the adenoma has been presence of 2015 and abuts the pre chiasmatic portion of the optic chiasm. No laboratory studies are present at the time of consultation..Saw Dr. Lino Liao - prrscribed testosterone. Saw neurosurgeon at [facility] who decided not to operate. Taking testosterone IM 200 mg Q2 wks. Some issues with urine stream. Has BPH. ?? Sleep apnea . On L-T4 for 125 ug for hypothyroidism No sx of acromegaly . No sx of Roger's or adrenal insuffiency. The patient is a 79-year-old male presenting with a pituitary gland cyst. Initial detection was via brain imaging, and subsequent evaluations have provided conflicting reports regarding its relation to the optic chiasm. The patient does experience vision changes, but interpretations of their cause vary. His significant past medical event was testicular cancer treated successfully via right orchiectomy 28 years prior, which necessitated continuous testosterone replacement therapy. This treatment aided libido initially but has waned in effectiveness due to changes in medication regimens over the past year. He is concurrently managing a urinary tract infection. Chronic urinary symptoms and tiredness are consistent, exacerbated by documented borderline sleep apnea. Essential tremors have also been a long-standing issue. Collaborative care and endocrinological and neurological evaluations have thus far been inconclusive, prompting potential tertiary care referral consideration. 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 Patient did not go for sleep study as of yet. Urology did clear patient for testosterone use. Patient also has an appointment with Neurosurgery The patient is a 79-year-old male presenting with testosterone deficiency management and evaluation of potential obstructive sleep apnea. The patient?s testosterone deficiency follows an orchiectomy and has been managed with replacement therapy for 28 years; however, therapy is currently on hold to rule out obstructive sleep apnea. He has noticed weight loss and fatigue since discontinuing testosterone. There are concerns about neurological symptoms that might suggest a disorder unrelated to his hypogonadism. A pituitary mass has been noted, though currently considered incidental. [facility] Medical History (Updated 07/25/24 @ 11:43 by Nayely Donis PA-C) Insomnia Abnormal pituitary luteinizing hormone (LH) Abnormal FSH level Memory change Essential tremor Seizure disorder Joint pain Lesion of pituitary gland Abnormal involuntary movements Anxiety Depression BPH loc w urin obs/LUTS History of recurrent UTIs Incomplete bladder emptying ADD (attention deficit disorder) Enlarged prostate Hyperkalemia Tardive dyskinesia Hard of hearing Hypothyroid Depression Polycythemia Osteoarthritis HTN (hypertension) Asthma Testicular cancer Surgical History Status post total hip replacement, 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) History of total left hip arthroplasty (01/31/23) Hx of unilateral orchiectomy Hx of excision of mass H/O colonoscopy (~06/27/23) History of cholecystectomy History of back surgery History of right knee surgery History of left knee surgery History of intestinal surgery Family History Father Clogged artery (heart) Mother Cardiac disease Social History Household Members: None Housing: House Are you a primary respiratory care specialist to a significant other at home: No Do you presently have visiting nurse or other home services: No Alcohol intake: current Alcohol intake frequency: a few times a week Alcohol type: beer Patient Tobacco Use Status: Never used Tobacco Substance Use Type: Marijuana Advance Directives Date on File: 02/03/23 service: No Physical Exam Vital Signs: BMI result Body Mass Index 25.4 Const Other: Rectal exam reveals enlarged but smooth prostate without the presence of any masses Assessment & Plan Assessment & Plan (1) Lesion of pituitary gland: Code(s): E23.7 - Disorder of pituitary gland, unspecified Category: Medical Plan: This is a 79-year-old white male with a reported history of pituitary microadenoma. 1. Pituitary gland cyst Patient has a pending appointment with neurosurgery at [facility] 2. Testosterone replacement therapy Received Urology clearance. However, patient has not had sleep apnea workup as of yet. Once sleep issues are dealt with, testosterone will be reinitiate at 100 mg Q weekly 3. Essential tremors Not sure if related to pituitary adenoma but patient has not appointment with Neurology in the future During the visit, I explained to the patient the rationale for withholding testosterone therapy until obstructive sleep apnea can be ruled out via sleep study, given the increased risk of stroke. I stressed the importance of timely investigation and addressing potential sleep apnea via appropriate referrals. Potentially harmful effects of testosterone replacement if obstructive sleep apnea is present were discussed at length. In addition to addressing hypogonadism, a referral to neurology for tremor evaluation was recommended. We discussed the incidental finding of the pituitary mass and the necessity for further imaging and specialist consultation. Patient consented to arranging necessary studies and contacting neurology. - Schedule and attend a sleep study as soon as possible. - Contact Dr. García or primary care for necessary referrals. - Reach out to the [facility] for a sooner appointment for sleep study. - Maintain current neurological appointments and discuss symptoms in detail. - Monitor diet to manage weight loss and stomach discomfort. Patient was informed and verbally consented to the use of an ambient scribe for clinic note documentation during this visit. Coding Level of Care Code Est Pt Level 3 (70805) Diagnoses Lesion of pituitary gland E23.7
[2024-07-29 11:32] VITALS: BP 148/66; PULSE 86; O2SAT 98; BMI 25.4
--- OUTSIDE RECORDS SUMMARY | 2024-07-29 12:37 | XMS_ITS | Encounter Summary ---
Author Organization [facility] Address [address] [place] [address] Care Team Providers Care Blacktop Spreader Name Role Phone Norman Lopez MD Primary Care Provider +1- [phone] Encounter Details Date Type Department Care Team (Late st Contact Info) Description 07/26/[address] [facility] Neurodiagnostic [address] [place] [address] Elvira Morgan MD [address] [place] [address] [place], [place] [phone] Epilepsy, unspecified, not intractable, without status epilepticus (CMS/[facility] V24, CMS/[facility]ER[facility] V28) Social History Tobacco Use Types Packs/Day Years Used Date Smoking Tobacco: Never Assessed Sex and Gender Information Value Date Recorded Sex Assigned at Not on file Legal Sex Male 2:55 PM EST Gender Identity Not on file Sexual Orientation Not on file documented as of this encounter Plan of Treatment Not on file documented as of this encounter Visit Diagnoses Diagnosis Epilepsy, unspecified, not intractable, without status epilepticus (CMS/HCC V24, CMS/[facility]ER[facility] V28) documented in this encounter Orders Neurology Count Last Ordered Date First Orde red Date CONTINUOUS EEG 1 07/26/2024 documented in this encounter Care Teams Blacktop Spreader Relationship Specialty Start Date End Date Norman Lopez MD [address] [place] [id number] PCP - General Internal Medicine 05/06/24 documented as of this encounter
== END 2024-07-29 12:30 | disposition home or self-care (01) ==
LOC: HO.ENCR 11:18
PROVIDERS: PCP Internal Medicine; Visit Provider Internal Medicine Endocrinology, Diabetes & Metabolism
DX: E23.7 Disorder of pituitary gland, unspecified (principal)
CPT/HCPCS: 99213

== ENCOUNTER → 2024-07-29 11:18 | Outpatient (BNVA) | payer MEDICARE, SELFPAY | PROVIDERS: PCP Internal Medicine; Visit Provider Internal Medicine Endocrinology, Diabetes & Metabolism | DX: E23.7 Disorder of pituitary gland, unspecified (principal) | CPT/HCPCS: 99212 ==

== ENCOUNTER 2024-08-20 10:48 | Outpatient (AMB) | payer MEDICARE, SELFPAY ==
[2024-08-20 10:51] VITALS: BP 198/85; PULSE 66; RESP 16; TEMP 36.7; O2SAT 99; BMI 25.9
--- NOTE | 2024-08-20 10:51 | A.OFFPC_ITS ---
Vital Signs 08/20/24 10:51 08/20/24 11:38 08/20/24 11:39 Height 5 ft 6.5 in Weight 163 lb BMI 25.9 BP 198/85 H 204/88 H 200/98 H Respiration 16 Pulse 66 Pulse Source Pulse Oximeter Temp 98.1 F Temp Source Temporal Artery Scan Pulse Oximetry (%) 99 Oxygen Delivery Method Room Air Intake Visit Reasons: 3 month f/u Tire Room Supervisor Required: No Accompanied by: Spouse Allergies adhesive tape (ADHESIVE TAPE) Allergy (Intermediate, Verified 08/20/24 10:51) RASH cashew nut (CASHEW NUT) Allergy (Intermediate, Verified 08/20/24 10:51) SWELLING sulfamethoxazole (From Bactrim) Allergy (Intermediate, Verified 08/20/24 10:51) Rash trimethoprim (From Bactrim) Allergy (Intermediate, Verified 08/20/24 10:51) Rash PERM HAIR DYE Allergy (Severe, Uncoded 08/20/24 10:51) severe rash Tobacco use date assessed: 08/20/24 Fall risk assessment: 1 Fall in past year Last assessed Fall Risk: 08/20/24 Dental Screening Dental Screen Date: 08/20/24 Did you have a dental visit in the last 12 months?: Yes Did you have a dental problem in the last 6 months where you did not have access to dental care?: No Was dental information given to patient?: Patient has dentist [facility] Medical History Insomnia Abnormal pituitary luteinizing hormone (LH) Abnormal FSH level Memory change Essential tremor Seizure disorder Joint pain Lesion of pituitary gland Abnormal involuntary movements Anxiety Depression BPH loc w urin obs/LUTS History of recurrent UTIs Incomplete bladder emptying ADD (attention deficit disorder) Enlarged prostate Hyperkalemia Tardive dyskinesia Hard of hearing Hypothyroid Depression Polycythemia Osteoarthritis HTN (hypertension) Asthma Testicular cancer Surgical History Status post total hip replacement, 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) History of total left hip arthroplasty (01/31/23) Hx of unilateral orchiectomy Hx of excision of mass H/O colonoscopy (~06/27/23) History of cholecystectomy History of back surgery History of right knee surgery History of left knee surgery History of intestinal surgery Family History Father Clogged artery (heart) Mother Cardiac disease Social History Household Members: None Housing: House Are you a primary livestock caretaker to a significant other at home: No Do you presently have visiting nurse or other home services: No Alcohol intake: current Alcohol intake frequency: a few times a week Alcohol type: beer Patient Tobacco Use Status: Never used Tobacco Substance Use Type: Marijuana Advance Directives Date on File: 02/03/23 service: No Current occupational status: retired Cognitive needs: No Hearing needs: Yes (b/l hearing aids ) Vision needs: Yes (rx glasses) Questionnaire PHQ-9 Over the last 2 weeks, how often have you been bothered by any of the following problems? 1. Little interest or pleasure in doing things: nearly every day 2. Feeling down, depressed, or hopeless: nearly every day 3. Trouble falling or staying asleep, or sleeping too much: nearly every day 4. Feeling tired or having little energy: nearly every day 5. Poor appetite or overeating: not at all 6. Feeling bad about yourself - or that you are a failure or have let yourself or your family down: more than half the days 7. Trouble concentrating on things, such as reading the newspaper or watching television: more than half the days 8. Moving or speaking so slowly that other people could have noticed. Or the opposite - being so fidgety or restless that you have been moving around a lot more than usual: nearly every day 9. Thoughts that you would be better off or of hurting yourself in some way: not at all Total score: 19 Depression Screening Interpretation: Positive Depression Screening Done: Yes 19633 - PHQ-9 Billing: Yes Source: Developed by Drs. Mike Cortes, Louise Hanks, Jayson Luis and colleagues, with an educational muriel from [employer]. Thrive Questionnaire Date Thrive assessed: 05/22/24 I am a: Patient What is your living situation today?: I have a steady place to live Within the past 12 months, did the food you bought not last and you didn't have the money to get more?: Never true Within the past 12 months, did you worry whether your food would run out before you got money to buy more?: Never true Do you have trouble paying for medicines?: No Do you have trouble getting transportation to medical appointments?: No Do you have trouble paying your heating and electricity bill?: No Do you have trouble taking care of your child, family member or friend?: No Do you have trouble with day-to-day activities such as bathing, preparing meals, shopping, managing finances, etc.?: No Are you currently unemployed and looking for a job?: No Are you interested in more education?: No THRIVE Score: 0 AUDIT C Alcohol Use Questionnaire (AUDIT-C) 1. How often do you have a drink containing alcohol?: 4 or more times a week 2. How many drinks containing alcohol do you have on a typical day when you are drinking?: 1 or 2 3. How often do you have six or more drinks on one occasion?: Never Total Score: 4 Score Reviewed/Action Taken: No LISSY-7 AMB Questionnaire LISSY-7 Date LISSY - 7 assessed: 05/22/24 Feeling nervous, anxious, or on edge: 3 = Nearly every day Not being able to stop or control worryin = More than half the days Worrying too much about different things: 3 = Nearly every day Trouble relaxin = More than half the days Being so restless that it is hard to sit still: 1 = Several days Becoming easily annoyed or irritable: 2 = More than half the days Feeling afraid as if something awful might happen: 2 = More than half the days Total LISSY-7 score (0-4 normal; 5-9 mild; 10-14 moderate; 15-21 severe): 15 Source: Developed by Drs. Mike Cortes, Louise Hanks, Jayson Luis and colleagues, with an educational muriel from [employer]. LISSY-7 Assessment Billing LISSY-7 Assessment Tool: LISSY-7 Assessment 20000 Physical exam (Primary Care) Vital Signs: Last Vital Signs Temp 98.1 F 08/20/24 10:51 Pulse 66 08/20/24 10:51 Resp 16 08/20/24 10:51 BP 200/98 H 08/20/24 11:39 Pulse Ox 99 08/20/24 10:51 Oxygen Delivery Method Room Air 08/20/24 10:51 BMI result Body Mass Index 25.9 Tobacco/Smoking Status: Tobacco use Status Tobacco use date assessed 08/20/24 08/20/24 10:53 Patient Tobacco Use Status Never used Tobacco 08/20/24 10:53 PHQ-9: PHQ-9 Score PHQ-9: Total score 19 08/20/24 11:38 Depression Screening Interpretation: Positive Thrive Assessment: Date of Thrive Assessment Date Thrive assessed 05/22/24 08/20/24 10:53 Coding Level of Care Code Est Pt Level 4 (01420) Complex EM visit Add On G2211 Diagnoses Essential hypertension I10 Hypertension type: essential hypertension Essential tremor G25.0 Lesion of pituitary gland E23.7 Additional Codes LISSY-7 Assessment Billing - LISSY-7 Assessment Tool: LISSY-7 Assessment 73899 ([id number]) PHQ-9 - 75795 - PHQ-9 Billing: Yes ([id number]) Assessment & Plan Assessment & Plan (1) Hypertension: Code(s): I10 - Essential (primary) hypertension Category: Medical Qualifiers: Hypertension type: essential hypertension Qualified Code(s): I10 - Essential (primary) hypertension Plan: Sharply elevated BP noted on this visit. Partial explaination is ongoing anxiety with his unresolved medical issues. Amlodipine dosage has been doubled. No symptoms. Was advised to check BP at home and report to us. (2) Essential tremor: Code(s): G25.0 - Essential tremor Category: Medical Plan: Seeing a neurologist in [place] and movement disorder including Parkinson's disease is being ruled out. Unhappy with the current neurologist at [place]. He is attempting to get an appt at [facility] on his own. I advised him to discuss with neuro (current or the future new one) to determine if Lamictal usage is appropriate (3) Lesion of pituitary gland: Code(s): E23.7 - Disorder of pituitary gland, unspecified Category: Medical Plan: Annual follow up with MD in [place]. Plan History of Present Illness - The patient is a 79-year-old male presenting with management of tremors and back pain. - Reports tremors affecting head and mouth, with occasional hand involvement, occurring once or twice weekly. - Xanax provides some relief for tremor symptoms. - Multiple evaluations, including MRIs and EEGs, have not identified a definitive cause. - Pituitary cyst identified, monitored annually, not currently problematic. - Chronic back pain exacerbated by walking, persists despite spinal fusion and hip replacements. - Further imaging and consultations are ongoing to determine cause and treatment. - Hypertension noted, with plans to increase amlodipine dosage for better management. - Reports significant fatigue, possibly related to medication and low testosterone. - Depression linked to medical issues and healthcare management burden. - History of testicular cancer, ongoing testosterone therapy monitored. 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 - Reports inability to perform music due to tremors, impacting quality of life. Review of Systems - Neurological: Reports tremors affecting head and mouth, occasional hand involvement. Denies headaches or dizziness. - Musculoskeletal: Reports severe back pain exacerbated by walking. Denies joint swelling. - Cardiovascular: Reports hypertension. Denies chest pain or palpitations. - Endocrine: Reports fatigue, possibly related to low testosterone levels. Denies polyuria or polydipsia. - Psychiatric: Reports depression related to medical issues. Denies suicidal ideation. Physical Exam General: Cooperative and healthy appearing Nutritional Appearance: Well nourished Orientation/consciousness: Patient oriented x3 Limitations: No limitations Head: Normal to inspection General: Appearance normal, both eyes and all related structures Neck: Normal visual inspection Chest: Normal palpation of entire chest wall Respiratory: Shortness of breath noted when climbing stairs, no abnormalities found by lung specialist. ormal respiratory effort Neurology: Patient oriented x3. Moderate tremors observed, primarily affecting the head and mouth, with occasional involvement of hands during severe episodes. Patient reports fatigue and lack of energy, potentially related to lamotrigine. Essential tremors suspected, with ongoing evaluation to rule out Parkinson's and autoimmune causes. Pituitary cyst present but not causing significant issues. Patient on Xanax for tremor management. EEGs and MRIs show no significant abnormalities aside from the pituitary cyst. Patient reports feeling depressed and frustrated due to medical issues and frequent doctor visits. Results - Imaging: Multiple MRIs and EEGs conducted, no definitive cause for tremors identified. - Endocrine: Pituitary cyst identified, monitored annually, not currently problematic. Plan 1. Essential Tremor - Continue monitoring with neurologist to rule out other causes such as Parkinson's disease. - Consider symptomatic treatment with anxiolytics or muscle relaxants if diagnosis is confirmed as essential tremor. 2. Chronic Back Pain - Further imaging and consultations to determine surgical candidacy or need for physical therapy. - Consider physical therapy and judicious use of pain medication if not a surgical candidate. 3. Pituitary Cyst - Continue annual monitoring by fruit farmworker as cyst is not currently causing significant issues. 4. Hypertension - Increase amlodipine dosage to 10 mg for better blood pressure control. - Monitor blood pressure at home daily and record readings. 5. Fatigue - Evaluate potential causes including medication side effects and low testosterone levels. - Conduct sleep study to assess for sleep apnea as a contributing factor. 6. Depression - Continue current antidepressant therapy and consider psychiatric consultation if symptoms persist. 7. History Of Testicular Cancer - Monitor testosterone levels and adjust replacement therapy as needed. Discussion Notes During the visit, we discussed the management of essential tremors, including the possibility of symptomatic treatment with anxiolytics or muscle relaxants if confirmed. We also addressed the chronic back pain, with plans for further imaging to determine if surgical intervention or physical therapy is appropriate. The patient's hypertension management was reviewed, with a decision to increase the amlodipine dosage for better control. We talked about the fatigue and its potential causes, including medication side effects and low testosterone, and the need for a sleep study to rule out sleep apnea. The patient's depression was acknowledged, and continuation of current antidepressant therapy was advised. Patient Instructions - Monitor blood pressure daily and record the readings. - Follow up with neurologist for tremor management and further evaluations. - Attend scheduled imaging and consultations for back pain assessment. - Continue current antidepressant medication and report any changes in mood. - Complete the sleep study as scheduled to evaluate for sleep apnea. . Medications: Changed From amlodipine 5 mg PO DAILY 90 tabs 3RF To amlodipine 10 mg (2 x 5 mg) PO DAILY 90 tabs 1RF
[2024-08-20 11:38] VITALS: BP 204/88
[2024-08-20 11:39] VITALS: BP 200/98
--- OUTSIDE RECORDS SUMMARY | 2024-08-20 12:10 | XMS_ITS | Clinical Summary ---
Author Organization [address] [facility] Address [address] [place] [address] Phone Care Team Providers Care Commissary Superintendent Name Role Phone Norman Lopez MD Primary Care Provider [phone] Encounters Date Type Department Care Team Description 07/26/2024 Lab [facility] Neurodiagnostic [address] [place] [address] [phone] Elvira Morgan MD Epilepsy, unspecified, not intractable, without status epilepticus ([facility] V24, [facility] V28) 07/25/2024 Lab [facility] Neurodiagnostic [address] [place] [phone] Elvira Morgan MD Epilepsy, unspecified, not intractable, without status epilepticus ([facility] V24, [facility] V28) 07/24/2024 Lab [facility] Neurodiagnostic [address] [place] [phone] Elvira Morgan MD Epilepsy, unspecified, not intractable, without status epilepticus ([facility] V24, [facility] V28) 05/23/2024 Lab Requisition [facility] - Main Lab [address] [facility] [place] [phone] Patricio Mijares MD Elevated prostate specific antigen (PSA) from Last 3 Months Social History Tobacco [...] Routine 05/21/2024 Elevated prostate specific antigen (PSA) from Last 3 Months Results * Anatomic pathology outside consult (05/21/2024) Final Diagnosis A. Prostate, Left [place] Biopsy: - Benign prostatic tissue. B. Prostate, Left Lateral [place] Biopsy: - Benign prostatic tissue. C. Prostate, Left Middle Middle Biopsy: - Benign prostatic tissue. D. Prostate, Left Lateral Middle Biopsy: - Benign prostatic tissue. E. Prostate, Left Middle Base Biopsy: - Benign prostatic tissue. F. Prostate, Left Lateral Base Biopsy: - Benign prostatic tissue. G. Prostate, Left Anterior Peripheral Zone Biopsy: - Benign prostatic tissue. H. Prostate, Right [place] Biopsy: - Benign prostatic tissue. I. Prostate, Right Lateral [place] Biopsy: - Benign prostatic tissue. J. Prostate, Right Middle Middle Biopsy: - Benign prostatic tissue. K. Prostate, Right Lateral Middle Biopsy: - Benign prostatic tissue. L. Prostate, Right Middle Base Biopsy: - Benign prostatic tissue. M. Prostate, Right Lateral Base Biopsy: - Benign prostatic tissue. 05/24/2024 1:05 PM EDT [facility] Clinical Information Elevated PSA = 8.5 (04/26/24) [id number] 05/24/2024 1:05 PM T [facility] Gross Description A. Prostate, Left [place] Biopsy: Received, properly labeled, are two H and E stained slides and two unstained slides. B. Prostate, Left Lateral [place] Biopsy: Received, properly labeled, are two H [...] two unstained slides. H. Prostate, Right [place] Biopsy: Received, properly labeled, are two H and E stained slides and two unstained slides. I. Prostate, Right Lateral [place] Biopsy: Received, properly labeled, are two H [...] unstained slides. /al 05/24/2024 1:05 PM EDT [facility] Disclaimer Unless otherwise specified, all tissue is 10% NB formalin fixed and paraffin embedded. Technical pathology services provided by [facility] at [address] [place] [address] [address], [place] [address] (CLIA #[id number]/S nilson Shi MD, Food Aide) 05/24/2024 1:05 PM EDT [facility] Tissue Prostate / Unknown [...] MD LAB PATHOLOGY ORDERABLES Fi nal Result [facility] [address] [place] [address], [place] [phone] from Last 3 Months Insurance MEDICARE [facility] Care Teams Commissary Superintendent Relationship Specialty Start Date End Date Norman Lopez MD [address] [place] [id number] PCP - General Internal Medicine 05/06/24
== END 2024-08-20 12:21 | disposition home or self-care (01) ==
LOC: HO.HMCSH 10:48
PROVIDERS: PCP Internal Medicine; Visit Provider Internal Medicine
DX: I10 Essential (primary) hypertension (principal); G25.0 Essential tremor; E23.7 Disorder of pituitary gland, unspecified

== ENCOUNTER → 2024-08-20 10:48 | Outpatient (BNVA) | payer MEDICARE, SELFPAY | PROVIDERS: PCP Internal Medicine; Visit Provider Internal Medicine | DX: I10 Essential (primary) hypertension (principal); E23.7 Disorder of pituitary gland, unspecified; G25.0 Essential tremor | CPT/HCPCS: 96127; 99212 ==

== ENCOUNTER 2024-08-27 16:14 | Outpatient (AMB) | payer MEDICARE, SELFPAY ==
[2024-08-27 16:18] VITALS: BP 154/74; PULSE 64; O2SAT 98; BMI 25.6
--- NOTE | 2024-08-27 16:18 | A.OFFVIS_ITS ---
Vital Signs 08/27/24 16:18 Height 5 ft 6.5 in Weight 160 lb 14.999 oz BMI 25.6 BP 154/74 H Position Sitting Pulse 64 Pulse Source Pulse Oximeter Pulse Oximetry (%) 98 Oxygen Delivery Method Room Air Intake Visit Reasons: Disorder of pituitary gland Intake Note: Patient present today for Disorder of Pituitary Gland. Home Sleep test was done on 08/22/2024. 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 According to an MRI report sent from the patient's PCP, the adenoma has been presence of 2015 and abuts the pre chiasmatic portion of the optic chiasm. No laboratory studies are present at the time of consultation..Saw Dr. Lino Liao - prrscribed testosterone. Saw neurosurgeon at [facility] who decided not to operate. Took testosterone IM 200 mg Q2 wks. Some issues with urine stream. Has BPH. Was cleared by Urology. Also sleep study showed the absence of sleep apnea . On L-T4 for 125 ug for hypothyroidism No sx of acromegaly . No sx of Gravelly's or adrenal insuffiency. His significant past medical event was testicular cancer treated successfully via right orchiectomy 28 years prior, which necessitated continuous testosterone replacement therapy. This treatment aided libido initially but has waned in effectiveness due to changes in medication regimens over the past year. 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 Urology did clear patient for testosterone use. Patient also has an appointment with [facility] today to initiate testosterone. Sleep study showed the absence of sleep apnea The patient is a 79-year-old male presenting with testosterone deficiency. He has experienced fluctuations in testosterone levels, previously managed with intramuscular injections every other week, resulting in peaks and troughs. He prefers weekly injections to maintain stable levels and has been cleared by a urologist to continue testosterone therapy despite a prostate condition. The patient reports experiencing tremors, which have decreased in frequency since starting antihypertensive therapy. The tremors were previously severe, occurring two to three times a week. The patient has a pituitary gland enlargement, which has shown slight growth over time but is not currently causing significant issues. He has been evaluated by neurosurgeons, and the condition is being monitored. There are ongoing neurological concerns, with a VENECIA scan planned to rule out Parkinson's disease. - Sleep study: Negative for sleep apnea. - Pituitary evaluation: Slight growth noted, not causing significant issues. - 24-hour urine test: Normal results, no excess cortisol detected. 1. Testosterone deficiency Continue weekly testosterone injections, monitor levels with peak and trough measurements to adjust dosing as needed. 4. Pituitary gland enlargement Monitor with neurosurgical follow-up, no immediate action required. I discussed with the patient the management of testosterone deficiency, including the option of weekly injections to maintain stable levels. We reviewed the importance of monitoring testosterone levels through peak and trough measurements to ensure appropriate dosing. The patient was informed about the potential side effects of testosterone therapy, including prostate enlargement and the need to monitor for urinary symptoms. We also discussed the management of hypertension, emphasizing the need for regular monitoring and consideration of secondary causes. The patient was advised to continue current antihypertensive therapy and to report any significant changes in blood pressure readings. Additionally, we addressed the patient's neurological concerns, with a plan to proceed with a VENECIA scan to rule out Parkinson's disease. The patient was encouraged to follow up with neurosurgical evaluations for the pituitary gland enlargement, which is currently being monitored without immediate intervention. - Continue weekly testosterone injections as prescribed. - Monitor blood pressure regularly and report any significant changes. - Follow up with neurosurgical evaluations as scheduled. - - Report any new or worsening symptoms, especially related to urination or tremors. The patient had an opportunity to ask questions regarding treatment plan. The patient expressed understanding and agreement with the above treatment plan. Patient was informed and verbally consented to the use of an ambient scribe for clinic note documentation during this visit. 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) History of total left hip arthroplasty (01/31/23) Hx of unilateral orchiectomy Hx of excision of mass H/O colonoscopy (~06/27/23) History of cholecystectomy History of back surgery History of right knee surgery History of left knee surgery History of intestinal surgery Family History Father Clogged artery (heart) Mother Cardiac disease Social History Household Members: None Housing: House Are you a primary caregiver assisted living to a significant other at home: No Do you presently have visiting nurse or other home services: No Alcohol intake: current Alcohol intake frequency: a few times a week Alcohol type: beer Patient Tobacco Use Status: Never used Tobacco Substance Use Type: Marijuana Advance Directives Date on File: 02/03/23 service: No Current occupational status: retired Cognitive needs: No Hearing needs: Yes (b/l hearing aids ) Vision needs: Yes (rx glasses) Physical Exam Vital Signs: Last Vital Signs Pulse 64 08/27/24 16:18 BP 154/74 H 08/27/24 16:18 Pulse Ox 98 08/27/24 16:18 Oxygen Delivery Method Room Air 08/27/24 16:18 BMI result Body Mass Index 25.6 Assessment & Plan Assessment & Plan (1) Lesion of pituitary gland: Code(s): E23.7 - Disorder of pituitary gland, unspecified Category: Medical Plan: This is a 79-year-old white male with a reported history of pituitary microadenoma. Orders: Orders Prostate Specific Antigen 6 Weeks E23.7 - Disorder of pituitary gland, unspecified Hemoglobin 6 Weeks E23.7 - Disorder of pituitary gland, unspecified Testosterone, Free/Total 7 Weeks E23.7 - Disorder of pituitary gland, unspecified Testosterone, Free/Total 6 Weeks E23.7 - Disorder of pituitary gland, unspecified Hematocrit 6 Weeks E23.7 - Disorder of pituitary gland, unspecified Medications: New testosterone cypionate 100 mg (0.5 mL) IM QWEEK 100 mL 3RF Coding Level of Care Code Est Pt Level 3 (96498) Diagnoses Lesion of pituitary gland E23.7
--- OUTSIDE RECORDS SUMMARY | 2024-08-27 16:28 | XMS_ITS | Continuity of Care Document ---
Author Organization [facility] [address] [place] [address] Phone [phone] Care Team Providers Care Trades Helper Name Role Phone Mike Jolley M.D. Care Team Information Recei sudhir [phone] Problems Active Problems Provider Date Hypogonadism Lino Liao M.D. Onset: Essential hypertension Lino Liao M.D. Ons et: 01/11/2022 H/O: depression Lino Liao M.D. Onset: Osteoarthritis Lino Liao M.D. Onset: Essential tremor Lino Liao M.D. Onset: Hypothyroidism Lino Liao M.D. Onset: Hypercholesterolemia Lino Liao M.D. Onset : 01/11/2022 Social History Type Date Description Comments Sex Male Sex Unknown ETOH Use Occasionally consumes alcoho l Tobacco Use Start: Unknown Patient has never smoked Allergies and adverse reactions Active Allergies Criticality Reaction Severity Comments Date Bactrim Unable to assess criticality 01/11/2022 Medications Active Medications SIG Qnty Indications Order ing Provider Date Propranolol HCL CB264rs Caps ER 24HR 4 x per week Lino Liao M.D. 07/12/2022 Testosterone Tfwfmpmsb515ny/ml Solution Inject 200MG Intramuscularly Every 2 Weeks 2ml E29.1 Libby Lopez M.D. Mgndztuhuo5lw Tablets Take 1 Tablet By Mouth 4 Times A Day as Needed Unknown Amphetamine-Dextroam gxpgosrxf75sf Tablets Take 1 Tablet By Mouth 3 Times A Day as Needed Unknown Escitalopram Qqtqukh89gv Tablets Take 1 Tablet By Mouth Every Day In The Morning Unknown Diclofenac Ymtrnl60ee Tablets DR Take 1 Tablet By Mouth Twice A Day as Needed Mike Jolley M.D. Xrbsutphfc77wn Capsules DR Take 1 Capsule By Mouth Every Day For 90 Days Mike Jolley M.D. Atorvastatin Bfylqse85ws Tablets Take 1 Tablet By Mouth Every Day Mike Jolley M.D. Amlodipine Mwplphqp4ed Tablets Take 1 Tablet By Mouth Every Day Lakhwinder De Souza MD Levothyroxine Kvyioy577tfp Tablets Take 1 Tablet By Mouth Every Day Mike Jolley M.D. Leptyobsr73nc Tablets Take 1 Tablet By Mouth Two [...] Testosterone 549 ng/dL 264-916 1 Testosterone 01/10/2023 [facility] Testosterone 298 ng/dL (280-800 ) Testosterone 07/12/2022 [facility] Testosterone 560 ng/dL (280-800 ) 2 Complete Abc With Diff 07/12/2022 [facility] [id number] Duplicate order <SEE NOTE> 3 WBC 8.1 [...] ) Lymph # 1.0 K/MM3 (0.8-3.1 ) [place]# 1.1 K/MM3 (0.4-1.3 ) Eo # 0.3 K/MM3 (0.0-0.4 ) Baso # 0.0 K/MM3 (0.0-0.1 ) Abs. Imm Gran 0.0 K/MM3 Neut 70.1 % (44-76) Lymph 12.3 % Low (15-43) Monocyte 13.2 % High (4.5-10. 5) Eo 3.5 % (0-6) Baso 0.4 % (0-2) Imm Gran 0.5 % Complete Abc With Diff 01/27/2022 [facility] WBC 4.8 K/MM3 (4.0-11. 0) [...] ) Lymph # 0.9 K/MM3 (0.8-3.1 ) [place]# 0.7 K/MM3 (0.4-1.3 ) Eo # 0.1 K/MM3 (0.0-0.4 ) Baso # 0.0 K/MM3 (0.0-0.1 ) Abs. Imm Gran 0.0 K/MM3 Neut 62.8 % (44-76) Lymph 19.8 % (15-43) Monocyte 13.7 % High (4.5-10. 5) Eo 2.9 % (0-6) Baso 0.6 % (0-2) Imm Gran 0.2 % Testosterone 01/27/2022 [facility] Testosterone 141 ng/dL Low (280-800 ) Complete Abc With Diff 01/11/2022 [facility] WBC 5.0 K/MM3 (4.0-11. 0) [...] ) Lymph # 1.0 K/MM3 (0.8-3.1 ) [place]# 0.8 K/MM3 (0.4-1.3 ) Eo # 0.2 K/MM3 (0.0-0.4 ) Baso # 0.0 K/MM3 (0.0-0.1 ) Abs. Imm Gran 0.0 K/MM3 Neut 59.0 % (44-76) Lymph 20.4 % (15-43) Monocyte 16.8 % High (4.5-10. 5) Eo 3.2 % (0-6) Baso 0.4 % (0-2) Imm Gran 0.2 % Testosterone 01/11/2022 [facility] Testosterone 345 ng/dL (280-800 ) 1 Adult male reference interval is based on a population of healthy nonobese males (BMI <30) between 19 and 39 years old. Venecia et.al. JCEM 2017,102;[id number]. PMID: [id number]. 2 Duplicate order canc elled via interface [...]
--- OUTSIDE RECORDS SUMMARY | 2024-08-27 16:28 | XMS_ITS | Clinical Summary ---
Author Organization [address] [facility] Address [address] [place] [address] Phone Care Team Providers Care Clinical Operations Consultant Name Role Phone Norman Lopez MD Primary Care Provider [phone] Encounters Date Type Department Care Team Description 07/26/2024 [facility] Neurodiagnostic [address] [place] [address] [phone] Elvira Morgan MD Epilepsy, unspecified, not intractable, without status epilepticus ([facility] V24, [facility] V28) 07/25/2024 [facility] [address] [place] [address] [phone] Elvira Morgan MD Epilepsy, unspecified, not intractable, without status epilepticus ([facility] V24, [facility] V28) 07/24/2024 [facility] Neurodiagnostic [address] [place] [phone] Elvira Morgan MD Epilepsy, unspecified, not intractable, without status epilepticus ([facility] V24, [facility] V28) from Last 3 Months Social History Tobacco [...] Influencers of Health Screening 01/26/2022 COVID-19 Vaccine (2023-2 5 season) 2023 Influenza Vaccine (Season Ended) [...] on patient's age to complete this topic Insurance MEDICARE [facility] Care Teams Clinical Operations Consultant Relationship Specialty Start Date End Date Norman Lopez MD PCP - General Internal Medicine 05/06/24
== END 2024-08-28 08:03 | disposition home or self-care (01) ==
LOC: HO.ENCR 16:15
PROVIDERS: PCP Internal Medicine; Visit Provider Internal Medicine Endocrinology, Diabetes & Metabolism
DX: E23.7 Disorder of pituitary gland, unspecified (principal)
CPT/HCPCS: 99213

== ENCOUNTER → 2024-08-27 16:14 | Outpatient (BNVA) | payer MEDICARE, SELFPAY | PROVIDERS: PCP Internal Medicine; Visit Provider Internal Medicine Endocrinology, Diabetes & Metabolism | DX: E23.6 Other disorders of pituitary gland (principal); Z79.890 Hormone replacement therapy; I10 Essential (primary) hypertension | CPT/HCPCS: 99212 ==

== ENCOUNTER 2024-10-14 11:11 | Outpatient (AMB) | payer MEDICARE, SELFPAY ==
--- NOTE | 2024-10-14 11:26 | A.OFFVIS_ITS ---
Vital Signs 10/14/24 11:28 10/14/24 11:32 Height 5 ft 6.5 in Weight 163 lb 9.328 oz BMI 26.0 BP 110/64 120/56 L Blood Pressure Location Lt brachial Rt brachial Position Sitting Sitting Pulse 69 Pulse Source Pulse Oximeter Intake Visit Reasons: r/s 09/25/24 6 mos followup Intake Note: 6 mth f/up Electronic Assembler Group Leader Required: No Accompanied by: Self / Same As Patient Allergies adhesive tape (ADHESIVE TAPE) Allergy (Intermediate, Verified 08/27/24 16:19) RASH cashew nut (CASHEW NUT) Allergy (Intermediate, Verified 08/27/24 16:19) SWELLING sulfamethoxazole (From Bactrim) Allergy (Intermediate, Verified 08/27/24 16:19) Rash trimethoprim (From Bactrim) Allergy (Intermediate, Verified 08/27/24 16:19) Rash PERM HAIR DYE Allergy (Severe, Uncoded 08/27/24 16:19) severe rash Medication List - Last Reconciled 10/14/24 by Lakhwinder De Souza MD alprazolam 1 mg PO amlodipine 10 mg (2 x 5 mg) PO DAILY atorvastatin 80 mg PO BEDTIME cholecalciferol (vitamin D3) 25 mcg PO DAILY cyclobenzaprine 10 mg PO BEDTIME dextroamphetamine-amphetamine 15 mg (Adderall) 15 mg PO BID duloxetine 60 mg PO QAM hydrocortisone 1% 1 appl topical DAILY PRN lamotrigine 50 mg (2 x 25 mg) PO BID 30 days levothyroxine 125 mcg PO QAM methenamine hippurate 1 g PO BID multivitamin 1 tab PO DAILY omeprazole 40 mg PO DAILY@0630 primidone 50 mg PO TID propranolol ER 120 mg PO Q24H tamsulosin 0.4 mg PO BID testosterone cypionate 100 mg (0.5 mL) IM QWEEK tramadol 50 mg PO BEDTIME HPI Comments Details: 79-year-old gentleman with dyspnea on exertion who is here for follow-up. He was taken for cardiac catheterization for his progressive dyspnea which did not show any significant coronary disease. His filling pressures at rest were normal. His blood pressure was elevated and he was started on amlodipine. His BP is better. He was diagnosed with exercise induced asthma. He underwent back surgery and is recovering from that. He tried to do some exercise but had some dyspnea and fatigue. I have explained to him that this is quite normal after surgery. 08/21/23: he is here for f/u. He underwent hip surgery in 02/15/2023. He is saying that he has recovered from that was breathing has been bad. He previously was diagnosed with exercise-induced asthma and was on some inhalers which he has not used for few months. He is getting shortness of breath with activities. No other significant complaints. 12/27/2023: He is here for follow-up. He wants to undergo right hip surgery. He is in a lot of pain. Blood pressure is elevated. He is on amlodipine 5 mg and propranolol every other day. He is here for perioperative cardiovascular risk assessment. 03/27/2024: He is here for follow-up. He recently had an event where he started having shaking of his body and then he fell to the ground. He does not recall falling and losing consciousness. He said his friends were around him who noticed that he was confused. He subsequently saw Neurology and had further workup he was told that there was some abnormality noticed on an EEG and he needs to repeat it today. He is quite overwhelmed and stress. He also has significant shaking of his head and has been using primidone for long time. He has we will refer to movement disorder specialist Dr. Collazo. Blood pressure is good. 10/14/2024: He is here for follow-up. He had significant tremors in his head and recently underwent Botox treatment at [facility]. He is saying that he was given low-dose Botox which has helped him and he will be getting higher dose next time. He has significant lower back pain which limits his mobility. He has not been able to exercise for years and complaints of dyspnea on exertion. He is saying that when he walks he gets back pain and he gets short of breath. Blood pressure control is reasonable currently. He is saying the blood pressure was elevated in his amlodipine was increased to 10 mg daily by the primary care physician. [facility] Medical History Insomnia Abnormal pituitary luteinizing hormone (LH) Abnormal FSH level Memory change Essential tremor Seizure disorder Joint pain Lesion of pituitary gland Abnormal involuntary movements Anxiety Depression BPH loc w urin obs/LUTS History of recurrent UTIs Incomplete bladder emptying ADD (attention deficit disorder) Enlarged prostate Hyperkalemia Tardive dyskinesia Hard of hearing Hypothyroid Depression Polycythemia Osteoarthritis HTN (hypertension) Asthma Testicular cancer Surgical History Status post total hip replacement, 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) History of total left hip arthroplasty (01/31/23) Hx of unilateral orchiectomy Hx of excision of mass H/O colonoscopy (~06/27/23) History of cholecystectomy History of back surgery History of right knee surgery History of left knee surgery History of intestinal surgery Family History Father Clogged artery (heart) Mother Cardiac disease Social History Household Members: None Housing: House Are you a primary critical care cns to a significant other at home: No Do you presently have visiting nurse or other home services: No Alcohol intake: current Alcohol intake frequency: a few times a week Alcohol type: beer Patient Tobacco Use Status: Never used Tobacco Substance Use Type: Marijuana Advance Directives Date on File: 02/03/23 service: No Current occupational status: retired Cognitive needs: No Hearing needs: Yes (b/l hearing aids ) Vision needs: Yes (rx glasses) Review of Systems Const Denies chills, Denies fatigue, Denies fever(s), Denies frequent falls, Denies weakness, Denies weight gain and Denies weight loss ENT Denies dizziness Card Denies chest pain, Denies leg edema, Denies lightheadedness, Denies palpitations, Denies dyspnea and Denies dyspnea on exertion Resp Denies cough, Denies dyspnea and Denies dyspnea on exertion GI Denies hematochezia Musc Denies abnormal gait, Denies muscle weakness, Denies numbness, Denies radiating pain into limb and Denies tingling Neuro Denies abnormal gait, Denies dizziness, Denies frequent falls, Denies numbness, Denies tingling and Denies weakness Endo Denies fatigue and Denies palpitations Physical Exam Vital Signs: Last Vital Signs Pulse 69 10/14/24 11:28 BP 120/56 L 10/14/24 11:32 BMI result Body Mass Index 26.0 GENERAL APPEARANCE: in no acute distress. NECK/THYROID: no carotid bruit, no jugular venous distention. SKIN: no suspicious lesions, warm and dry. HEART: no murmurs, regular rate and rhythm, S1, S2 normal. LUNGS: clear to auscultation bilaterally. ABDOMEN: normal, bowel sounds present, soft, nontender, nondistended. EXTREMITIES: no clubbing, cyanosis, or edema. PERIPHERAL PULSES: equal. NEUROLOGIC: nonfocal, alert and oriented. Shaking of his head. Assessment & Plan Assessment & Plan (1) BECKMAN (dyspnea on exertion): Comment: DYSPNEA ON EXERTION, MAINLY DUE TO EXERCISE INDUCED ASTHMA, AND IS MUCH IMP ROVED, AND ALMOST RESOLVED. Code(s): R06.00 - Dyspnea, unspecified Category: Medical Plan [age] year gentleman with hypertension and dyspnea related to exercise- induced asthma in the past. He has been facing many issues including significant tremors in the head and spasms in the neck. He received Botox with some improvement hopefully this improves her further treatments. His blood pressure is well controlled currently. His main issue is dyspnea with activities but he has slowed down significantly due to back issues. He just received steroid injection in the back but has not noticed any changes in symptoms currently. I think his dyspnea is related to deconditioning. I will check an echocardiogram to assess for any structural issues. As his back pain improves we can consider cardiopulmonary exercise stress test to further understand the dyspnea with exertion. If back pain improves and with the exercises breathing starts improving then that also goes along with deconditioning being the underlying cause. He also needs to use his inhaler before exercise and because he has exercise-induced asthma. Thank you for allowing me to participate in the care of your patient. Please feel free to contact me if you have any questions. Orders: Orders CA echo transthoracic complete Today R06.00 - Dyspnea, unspecified Coding Level of Care Code Est Pt Level 4 (30222) Diagnoses BECKMAN (dyspnea on exertion) R06.00
[2024-10-14 11:28] VITALS: BP 110/64; PULSE 69; BMI 26.0
[2024-10-14 11:32] VITALS: BP 120/56
--- OUTSIDE RECORDS SUMMARY | 2024-10-14 12:26 | XMS_ITS | Clinical Summary ---
Author Organization [facility] Address [address] [facility] [address] [place] [phone] Phone Care Team Providers Care Tea Tree Farmer Name Role Phone Pcp, Unknown Primary Care Provider Unavailabl e Allergies Active Allergy Reactions Criticality Noted Date Comments Adhesive Rash Low 08/13/2024 Sulfamethoxazole-Trimethoprim Nausea and/or Vomiting 08/13/2024 Cashew Nut 08/13/2024 Medications ALPRAZolam (XANAX) 1 MG tablet Take 1 mg by mouth 4 (four) times a day. Active dextroamphetami ne-amphetamine (ADDERALL) 15 mg Tab tablet Take 15 mg by mouth 4 (four) times a day. Active amLODIPine (NORVASC) 5 MG tablet Take 5 mg by mouth daily. Active testosterone enanthate (DELATESTRYL) 200 mg/mL injection Inject 200 mg into the muscle every 14 (fourteen) days. Active levothyroxine (SYNTHROID, LEVOTHROID) 125 MCG tablet Take 125 mcg by mouth every morning. Active atorvastatin (LIPITOR) 80 MG tablet Take 80 mg by mouth daily. Active tamsulosin (FLOMAX) 0.4 mg Cap Take 0.4 mg by mouth daily. Active omeprazole (PRILOSEC) 40 MG capsule Take 40 mg by mouth daily. Active primidone (MYSOLINE) 50 MG tablet Take 50 mg by mouth 3 (three) times a day. Active propranoloL (INDERAL LA) 120 mg 24 hr capsule Take 120 mg by mouth daily. Active DULoxetine (CYMBALTA) 60 MG capsule Take 60 mg by mouth daily. Active lamoTRIgine (LAMICTAL) 25 MG IMMEDIATE release tablet Take 25 mg by mouth 4 (four) times a day. Active cyanocobalamin, vitamin B-12, 2,[address] 3,000 mcg under the tongue daily. Active multivitamin-mi nerals-lutein (CENTRUM SILVER) Tab Take 1 tablet by mouth daily. Active cholecalciferol (VITAMIN D3) 5,000 unit tablet Take 1,000 Units by mouth daily. Active vitamins A,C,E-zinc-vanda er (PRESERVISION AREDS) 4,296 mcg-226 mg-90 mg Cap Take 1 capsule by mouth 2 (two) times a day with meals. Active Active Problems No known active problems Encounters Date Type Department Care Team Description 09/04/2024 12:26 PM EDT - 09/04/2024 11:59 PM EDT Hospital Encounter [facility] Radiology [address] [place] [address] Dedrick Hua MD, PhD Discharge Disposition: Home or Self Care 09/04/2024 8:07 AM EDT - 09/04/2024 12:25 PM EDT Hospital Encounter [facility] Radiology [address] [place] [address] Dedrick Hua MD, PhD Discharge Disposition: Home or Self Care 09/01/2024 Orders Only [facility] [address] [facility], 5th Floor, [address] [place] [phone] Alvaro Waters CNP, DNP Pituitary cyst (Primary Dx) 08/19/2024 1:00 PM EDT Office Visit [facility] [address] [facility], 5th Floor, [address] [place] [phone] Florence Ma MD Pituitary cyst (Primary Dx) 08/19/2024 Orders Only [facility] Neuro[facility] [address] [facility], 5th Floor, [address] [place] [address] Florence Ma MD 08/19/2024 Orders Only [facility] Neuro[facility] [address] [facility], 5th Floor, [address] [place] [address] Alexandrea Tidwell MD 08/13/2024 12:40 PM EDT - 08/13/2024 11:59 PM EDT Hospital Encounter [facility] Laboratory [address] [place] [address] Dedrick Hua MD, PhD Discharge Disposition: Home or Self Care 08/13/2024 10:30 AM EDT Office Visit [facility] Department of Neurology [address] [address] Dedrick Hua MD, PhD Tremor (Primary Dx); Gait disorder 08/05/2024 Ancillary Orders [facility] Radiology [address] [place] [address] Dedrick Hua MD, PhD 07/24/2024 Ancillary Procedure [facility]iology [address] [place] [address] Dedrick Hua MD, PhD 07/23/2024 Ancillary Orders [facility] [address] [place] [address] Florence Ma MD from Last 3 Months Social History Tobacco Use Types Packs/Day Years Used Date Smoking Tobacco: Never Assessed Child or Family Care Answer Date Record ed Do you have problems with on e of the following making it difficult for you to work, study, or receive health care? No 08/12/2024 Education Answer Date Recorded Are you interested in more education? Not on hollie e 07/12/2024 Are you concerned about learning? Not on file 07/12/2024 No 07/12/2024 No 07/12/2024 Food Answer Date Recorded Within the past 6 months we worried whether our food would run out before we got money to buy more. Never True 08/12/2024 Within the past 6 months the food we bought just didn't last and we didn't have enough money to get more. Never True Residential Stability Answer Date Recor ded What is your housing situation today? I have jesus sing 08/12/2024 How many times have you move d in the past 12 months? Zero (I did not move) 08/12/2024 Paying for Meds Answer Date Recorded Do you have trouble paying for medicines? No 08/12/2024 Paying Utility Bills Answer Date Record ed Do you have trouble paying your heating or elect ricity bill? No 08/12/2024 Transportation Answer Date Recorded Has the lack of transportati on kept you from medical appointments or from getting medications? No 08/12/2024 Digital Access Answer Date Recorded No 08/12/2024 Yes 08/12/2024 Do you have reliable internet access at home? Ye s 08/12/2024 Do you have a device (e.g., phone, tablet, computer) with a working camera? Yes 08/12/2024 Sex and Gender Information Value Date Recorded Sex Assigned at Male 08/06/2024 8:20 PM EDT Legal Sex Male 11:45 AM EDT Gender Identity Male 08/06/2024 8:20 PM EDT Sexual Orientation Asexual 08/06/2024 8: 20 PM EDT Last Filed Vital Signs Vital Sign Reading Time Taken Comments Blood Pressure 165/72 08/13/2024 10:46 AM EDT Pulse 78 08/13/2024 10:46 AM EDT Temperature - - Respiratory Rate - - Oxygen Saturation 98% 08/13/2024 10:46 AM EDT Inhaled Oxygen Concentration - - Weight 73.9 kg (163 lb) 08/13/2024 10:46 AM EDT Height 170.2 cm (5' 7 ) 08/13/2024 10:46 AM EDT Body Mass Index 25.53 08/13/2024 10:46 AM EDT Plan of Treatment Upcoming Encounters Date Type Department Care Team (Late st Contact Info) Description 11/12/2024 2:30 PM EDT [facility] Visit [facility] [address] [address] Isha Ma, GUARD RAIL INSTALLER [address] [place] [id number] [email or web address] Health Maintenance Due Date Last Done Comments Adult Td,Tdap Booster 1946 LIPID PANEL 1946 TSH LEVEL 1946 DEPRESSION SCREENING 1958 SMOKING Hx and SMOKELESS TOBACCO SCREENING 1959 HEPATITIS C SCREENING 1964 ZOSTER VACCINES (1 of 2) 1996 PNEUMOCOCCAL VACCINES (50+ years) (2 of 2 - PCV) 02/17/2017 02/18/2016 RSV VACCINE (1 - 1-dose 75+ series) 2021 COVID-19 VACCINE (4 - 2023-2 5 season) 2023 01/04/2021, 06/03/2020, 05/13/2020 HEPATITIS A VACCINES Aged Out No long er eligible based on patient's age to complete this topic HIB VACCINES Aged Out No longer eligi ble based on patient's age to complete this topic MENINGOCOCCAL VACCINES (ACWY) Aged Out No longer eligible based on patient's age to complete this topic MENINGOCOCCAL VACCINES (B) Aged Out N o longer eligible based on patient's age to complete this topic Medical Devices Not on file Procedures Procedure Name Priority Date/Time Associated Diagnosis Comments NM BRAIN DATSCAN SPECT/CT Routine 09/04/2024 1:28 PM EDT Tremor OUTSIDE CARDIOLOGY Routine 08/19/2024 1: 10 PM EDT GAD65 ANTIBODY, BLOOD Routine 08/13/2024 12:41 PM EDT Gait disorder MRI BRAIN OUTSIDE (NO INTERPRETATION) Routine 07/24/2024 12:00 AM EDT from Last 3 Months Results * NM BRAIN DATSCAN SPECT/CT (09/04/2024 1:28 PM EDT) Anatomical Region Laterality Modality Head Nuclear Medicine 09/04/2024 8:39 AM EDT Impressions 09/04/2024 1:43 PM EDT Normal study with no evidence of neurodegenerative parkinsonism. ATTESTATION: IShyam, as teaching physician have reviewed the images, if any, for this patient's exam, and if necessary, have edited the report originally created by Eduar Lyman. Narrative 09/04/2024 1:43 PM EDT Reason for exam (per EHR order): Parkinsonism; worsenin tremor, rigidity, ET vs PD Additional clinical information obtained from the EHR: 79-year-old male. Head and bilateral hand tremor with rigidity and bradykinesia. Evaluate for degenerative parkinsonism versus ET. TECHNIQUE: Radiopharmaceutical: Ioflupane I-123 (DaTscan). Dose: 5.08 mCi. Premedication: 100 mg SSKI was administered orally one hour prior to tracer injection. TECHNIQUE: Brain SPECT/CT was performed approximately 4 hours after intravenous injection of tracer. COMPARISON: None. FINDINGS: 1. RIGHT: Tracer uptake in the right caudate appears normal. Tracer uptake in the right putamen appears normal. 2. LEFT: Tracer uptake in the left caudate appears normal. Tracer uptake in the left putamen appears normal. Procedure Note Shyam Sy MD - 09/04/2024 Reason for exam (per EHR order): Parkinsonism; worsenin tremor, rigidity,ET vs PD Additional clinical information obtained from the EHR: 79-year-old male.Head and bilateral hand tremor with rigidity and bradykinesia. Evaluatefor degenerative parkinsonism versus ET. TECHNIQUE: Radiopharmaceutical: Ioflupane I-123 (DaTscan). Dose: 5.08 mCi. Premedication: 100 mg SSKI was administered orally one hour prior totracer injection. TECHNIQUE: Brain SPECT/CT was performed approximately 4 hours afterintravenous injection of tracer. COMPARISON: None. FINDINGS: 1. RIGHT: Tracer uptake in the right caudate appears normal. Traceruptake in the right putamen appears normal. 2. LEFT: Tracer uptake in the left caudate appears normal. Tracer uptakein the left putamen appears normal. IMPRESSION: Normal study with no evidence of neurodegenerative parkinsonism. ATTESTATION: Shyam Ferguson, as teaching physician have reviewedthe images, if any, for this patient's exam, and if necessary, have editedthe report originally created by Eduar Lyman. Dedrick Hua MD, PhD IMG NM BRAIN Alissa l Result * Outside Cardiology Report Only (08/19/2024 1:10 PM EDT) Historical Provider [facility] SERVICES ORDER DAVIS Final Result * GAD65 antibody, blood (08/13/2024 12:41 PM EDT) GAD65 ANTIBODY 0.00 <=0.02 nmol/L [facility] DPT OF LAB MED AND PAT+ Comment: (NOTE) ADDITIONAL INFORMATION This test was developed and its performance characteristics determined by [facility] in a manner consistent with CLIA requirements. This test has not been cleared or approved by the U.S. Food and Drug Administration. 08/13/2024 12:4 1 PM EDT 08/13/2024 12:44 PM EDT us Dedrick Hua MD, PhD LAB BLOOD ORDERABLES Final Result [facility] DPT OF LAB MED AND PAT+ [address] [place] [address] * MRI Brain Outside (No Interpretation) (07/24/2024 12:00 AM EDT) Narrative [facility] - 08/05/2024 1:38 PM EDT This study is for PACS storage only and not for interpretation. us Dedrick Hua MD, PhD IMG OUTSIDE IMAGING W/OUT INTERPRETATION Final Result [facility] from Last 3 Months Insurance MEDICARE PART A & B [employer] MEDEX SUPPLEMENT MEDICARE PART A & B [employer] MEDEX SUPPLEMENT MEDICARE PART A & B [employer] CROSS MEDEX SUPPLEMENT MEDICARE PART A & B [employer] MEDEX SUPPLEMENT MEDICARE PART A & B [employer] CROSS MEDEX SUPPLEMENT MEDICARE PART A & B [employer] MEDEX SUPPLEMENT Care Teams Tea Tree Farmer Relationship Specialty Start Date End Date Pcp, Unknown PCP - General 06/19/24 Additional Source Comments The information contained in this document represents components of the legal health record. It is not the complete legal health record.[facility]
--- OUTSIDE RECORDS SUMMARY | 2024-10-14 12:26 | XMS_ITS | Continuity of Care Document ---
Author Organization [facility] [address] [facility] [address] [place] [address] Phone [phone] Care Team Providers Care Christmas Tree Farm Manager Name Role Phone Mike Jolley M.D. Care Team Information Recei sudhir [phone] Problems Active Problems Provider Date Hypogonadism Lino [...] Indications Order ing Provider Date Propranolol HCL [id number] Caps ER 24HR 4 x per week Lino Liao M.D. 07/12/2022 Testosterone Jrvgyjxtk464ap/ml Solution Inject 200MG Intramuscularly Every 2 Weeks 2ml E29.1 Libby Lopez M.D. Xgphygtfak0oj Tablets Take 1 Tablet By Mouth 4 Times A Day as Needed Unknown Amphetamine-Dextroam mpvfjaion32dk Tablets Take 1 Tablet By Mouth 3 Times A Day as Needed Unknown Escitalopram Bhjogin62ek Tablets Take 1 Tablet By Mouth Every Day In The Morning Unknown Diclofenac Wmanec51sn Tablets DR Take 1 Tablet By Mouth Twice A Day as Needed Mike Jolley M.D. Uqqcqvocbp28zz Capsules DR Take 1 Capsule By Mouth Every Day For 90 Days Mike Jolley M.D. Atorvastatin Kznqijf37sz Tablets Take 1 Tablet By Mouth Every Day Mike Jolley M.D. Amlodipine Kkhozhvf1ce Tablets Take 1 Tablet By Mouth Every Day Lakhwinder De Souza MD Levothyroxine Tdtmpv482kbp Tablets Take 1 Tablet By Mouth Every Day Mike Jolley M.D. Slnduhicg86ss Tablets Take 1 Tablet By Mouth Two [...] Testosterone 549 ng/dL 264-916 1 Testosterone 01/10/2023 [facility] Testosterone 298 ng/dL (280-800 ) Testosterone 07/12/2022 [facility] Testosterone 560 ng/dL (280-800 ) 2 Complete Abc With Diff 07/12/2022 [facility] [id number] Duplicate order <SEE NOTE> 3 WBC 8.1 [...] ) Lymph # 1.0 K/MM3 (0.8-3.1 ) Inyo# 1.1 K/MM3 (0.4-1.3 ) Eo # 0.3 K/MM3 (0.0-0.4 ) Baso # 0.0 K/MM3 (0.0-0.1 ) Abs. Imm Gran 0.0 K/MM3 Neut 70.1 % (44-76) Lymph 12.3 % Low (15-43) Monocyte 13.2 % High (4.5-10. 5) Eo 3.5 % (0-6) Baso 0.4 % (0-2) Imm Gran 0.5 % Complete Abc With Diff 01/27/2022 [facility] WBC 4.8 K/MM3 (4.0-11. [...] ) Lymph # 0.9 K/MM3 (0.8-3.1 ) Inyo# 0.7 K/MM3 (0.4-1.3 ) Eo # 0.1 K/MM3 (0.0-0.4 ) Baso # 0.0 K/MM3 (0.0-0.1 ) Abs. Imm Gran 0.0 K/MM3 Neut 62.8 % (44-76) Lymph 19.8 % (15-43) Monocyte 13.7 % High (4.5-10. 5) Eo 2.9 % (0-6) Baso 0.6 % (0-2) Imm Gran 0.2 % Testosterone 01/27/2022 [facility] Testosterone 141 ng/dL Low (280-800 ) Complete Abc With Diff 01/11/2022 [facility] WBC 5.0 K/MM3 (4.0-11. [...] ) Lymph # 1.0 K/MM3 (0.8-3.1 ) Inyo# 0.8 K/MM3 (0.4-1.3 ) Eo # 0.2 K/MM3 (0.0-0.4 ) Baso # 0.0 K/MM3 (0.0-0.1 ) Abs. Imm Gran 0.0 K/MM3 Neut 59.0 % (44-76) Lymph 20.4 % (15-43) Monocyte 16.8 % High (4.5-10. 5) Eo 3.2 % (0-6) Baso 0.4 % (0-2) Imm Gran 0.2 % Testosterone 01/11/2022 [facility] Testosterone 345 ng/dL (280-800 ) 1 Adult male reference interval is based on a population of healthy nonobese males (BMI <30) between 19 and 39 years old. Venecia et.al. JCEM 2017,102;1877-8063. PMID: [id number]. 2 Duplicate order canc elled via interface [...]
--- OUTSIDE RECORDS SUMMARY | 2024-10-14 12:26 | XMS_ITS | Clinical Summary ---
Author Organization [address] [facility] Address [address] [place] [address] Phone Care Team Providers Care Facing Baster Jumpbasting Name Role Phone Norman Lopez MD Primary Care Provider [phone] Encounters Date Type Department Care Team Description 07/26/2024 [facility] Neurodiagnostic [address] [place] [address] [phone] Elvira Morgan MD Epilepsy, unspecified, not intractable, without status epilepticus ([facility] V24, [facility] V28) 07/25/2024 [facility] Neurodiagnostic [address] [place] [address] [phone] Elvira Morgan MD Epilepsy, unspecified, not intractable, without status epilepticus ([facility] V24, [facility] V28) 07/24/2024 [facility] Neurodiagnostic [address] [place] [phone] Elvira Morgan MD Epilepsy, unspecified, not intractable, without status epilepticus ([facility] V24, [facility] V28) from Last 3 Months Social History [...] series) 2021 Cholesterol Screening (Lipid Panel) 01/26/2022 Falls Risk Assessment 01/26/2022 Hepatitis C Screening 01/26/2022 Medicare Annual Wellness Visit 01/26/2022 Social Influencers of Health Screening 01/26/2022 COVID-19 Vaccine (1 - 2023-2 5 season) 2023 Depression Screening 02/28/2024 Influenza Vaccine (#1) 2024 HIB Vaccines Aged Out No longer [...] age to complete this topic Insurance MEDICARE [facility] Care Teams Facing Baster Jumpbasting Relationship Specialty Start Date End Date Norman Lopez MD PCP - General Internal Medicine 05/06/24
== END 2024-10-14 12:11 | disposition home or self-care (01) ==
LOC: HO.HCS 11:12
PROVIDERS: PCP Internal Medicine; Visit Provider Internal Medicine Cardiovascular Disease
DX: R06.00 Dyspnea, unspecified (principal)
CPT/HCPCS: 99214

== ENCOUNTER → 2024-10-14 11:11 | Outpatient (BNVA) | payer MEDICARE, SELFPAY | PROVIDERS: PCP Internal Medicine; Visit Provider Internal Medicine Cardiovascular Disease | DX: R06.09 Other forms of dyspnea (principal) | CPT/HCPCS: 99212 ==

== ENCOUNTER 2024-10-22 12:37 | Outpatient (AMB) | payer MEDICARE, SELFPAY ==
[2024-10-22 12:46] VITALS: BMI 25.9
--- NOTE | 2024-10-22 12:46 | A.OFFVIS_ITS ---
Vital Signs 10/22/24 12:46 Height 5 ft 6.5 in Weight 163 lb BMI 25.9 Intake Visit Reasons: OV RT hand pain Intake Note: Joel 79 yr old - hand dominant male, presents today for his Right wrist osteoarthritis s/p injection from 10/04/[address] Adames. States injection helped relief pain and would like to repeat injection. Allergies adhesive tape (ADHESIVE TAPE) Allergy (Intermediate, Verified 08/27/24 16:19) RASH cashew nut (CASHEW NUT) Allergy (Intermediate, Verified 08/27/24 16:19) SWELLING sulfamethoxazole (From Bactrim) Allergy (Intermediate, Verified 08/27/24 16:19) Rash trimethoprim (From Bactrim) Allergy (Intermediate, Verified 08/27/24 16:19) Rash PERM HAIR DYE Allergy (Severe, Uncoded 08/27/24 16:19) severe rash HPI HPI OV RT hand pain: Details: Joel is a 79 year old right hand dominant man who returns for his right wrist OA. He received a wrist injection on 10/04/23 He complains of some pain in his right wrist, and demonstrates that this is over the dorsal aspect of the right wrist, more so on the radiocarpal joint.. He finds some relief from wearing a compression sleeve on his wrist, and using Diclofenac. He would like to discuss a steroid injection today for his wrist. He says his last injection gave him ~3 months of relief, which he was very happy about. He also complains of pain in his thumb, which he says has been worsening in the last few weeks. He has known basal joint OA. He also complains of constant numbness & tingling in his right ring, and small fingers. He says his middle finger numbness has resolved and is now normal, which he is happy about.He denies any numbness in his thumb or index fingers. He has known carpal & cubital tunnel syndrome. He says he is frustrated by his limitations playing his Trumpet due to his finger numbness. He would like to discuss surgery. 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 He says he has developed tremors & other neurological concerns. He says he has finally started having this treated with Botox neck injections, which he says are very helpful. 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) History of total left hip arthroplasty (01/31/23) Hx of unilateral orchiectomy Hx of excision of mass H/O colonoscopy (~06/27/23) History of cholecystectomy History of back surgery History of right knee surgery History of left knee surgery History of intestinal surgery Family History Father Clogged artery (heart) Mother Cardiac disease Social History Household Members: None Housing: House Are you a primary manager managed care to a significant other at home: No Do you presently have visiting nurse or other home services: No Alcohol intake: current Alcohol intake frequency: a few times a week Alcohol type: beer Patient Tobacco Use Status: Never used Tobacco Substance Use Type: Marijuana Advance Directives Date on File: 02/03/23 service: No Current occupational status: retired Cognitive needs: No Hearing needs: Yes (b/l hearing aids ) Vision needs: Yes (rx glasses) Review of Systems Const All systems reviewed & are unremarkable except as noted in HPI and below Physical Exam Vital Signs: BMI result Body Mass Index 25.9 Const General: no acute distress and alert Orientation/consciousness: patient oriented x3 Neuro General: patient oriented x3 Extrem Other: Evaluation of Right Upper Extremity: The patient is alert, oriented, and in no acute distress Neuro: Dense numbness in the ulnar nerve distribution. Normal sensation in the median nerve distribution today in clinic, including the middle finger. No thenar wasting possibly some early right-sided intrinsic wasting seen in the hypothenar muscle belly. Good APB muscle belly firing and good finger cross Vascular: Cap refill brisk ROM: He can make a fist and extend all his digits No locking or catching ~45 degrees wrist extension ~30 degrees wrist flexion Good prono-supination No tenderness over the 1st dorsal compartment Negative Mona test on the right Tender over the dorsal aspect of the wrist joint, more so over the radiocarpal joint Mild tenderness over the basal joint Mild tenderness over the MCP joint Mild tenderness over the a1 sil No locking or catching DRUJ is non-tender & stable on exam Nerve Conduction Study: IMPRESSION: 1. This is an abnormal study. 2. 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 3. There is electrodiagnostic evidence for right mild median neuropathy at the wrist. 4. There is no electrodiagnostic evidence for brachial plexopathy or cervical radiculopathy. Rossy Whitehead MD, ARTURO 09/28/23 Radiographs: 3 views of the right wrist from 09/06/23 were reviewed by me today in clinic. They show no fractures or dislocations. There is perhaps some mild widening in the scapholunate interval, along with near complete loss of the midcarpal joint between the lunate and the capitate. There is also some evidence of radioscaphoid arthritis, STT arthritis and basal joint arthritis Psych Appearance: grossly normal Affect: normal affect Attitude: cooperative Office Procedures AMB Fracture Care Details: No fracture, injection Fracture Billing Code: Fracture Billing Code Assessment & Plan Assessment & Plan (1) Osteoarthritis of right wrist: Code(s): M19.031 - Primary osteoarthritis, right wrist Category: Medical (2) Cubital tunnel syndrome on right: Code(s): G56.21 - Lesion of ulnar nerve, right upper limb Category: Medical (3) Carpal tunnel syndrome of right wrist: Code(s): G56.01 - Carpal tunnel syndrome, right upper limb Category: Medical (4) [place] (hard of hearing): Code(s): H91.90 - Unspecified hearing loss, unspecified ear Category: Medical (5) Osteoarthritis of carpometacarpal joint of right thumb: Code(s): M18.11 - Unilateral primary osteoarthritis of first carpometacarpal joint, right hand Category: Medical Plan Assessment & Plan: 1. Right wrist osteoarthritis, SLAC, S/P injection Date of injection: 10/22/24 and 10/04/23 This is his chief complaint today I educated him about this condition I discussed treatment options The patient would like to proceed with a repeat injection Injection #1: The risks and benefits of a steroid injection including but not limited to risk of damage to blood vessels, nerve, tendon, infection, skin bleaching, persistent or worsening pain, and failure to improve symptoms were discussed with the patient and they wish to proceed with the steroid injection. Of note he has a wide scapholunate interval not well seen on radiographs. Once consent was obtained the skin over the dorsum of the Right wrist was sterilely prepped. The scapholunate interval was then injected with a comb ination of 1 mL of (40 mg/ml} Depo-Medrol and 0.5% plain Marcaine, using the mini C-arm for needle guidance. The patient appears to have tolerated the procedure well and with no complications. He had good early relief before leaving clinic today. He knows that they may not have another steroid injection into this joint for least 4 months. 2. Right Cubital tunnel syndrome, significant With dense numbness, with possibly some early intrinsic wasting 3. 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 He also had lots of concerns about the schedule for possible surgery and then the time off from work he is likely going to need afterwards. Lots of time was taken today to make sure that we addressed his concerns and his questions. The risks and benefits of operative treatment were discussed with the patient and the patient wishes to proceed with surgery. These risks include, but are not limited to risk of damage to blood vessels, nerves, tendons, infection, recurrence, incomplete relief of preoperative symptoms, persistent pain, possible need for further surgery and the risks associated with regional blocks and anesthesia. I explained the risks of his sensation not returning, but that surgery is important to maintain muscle function and preserve any sensation possible. He expressed understanding. I explained that it may take up to 9 months post- operatively for any sensation to return. The plan is to take the patient to the operating room sometime in the next few weeks for the following procedures: 1. Right cubital tunnel release, under general 2. Right carpal tunnel release, under general All of the preoperative paperwork including the consent was reviewed today. All the patient's questions were answered. The patient understands that they will be contacted by our veterinary surgery technician soon to schedule this procedure He denies Diabetes, blood thinners, asthma, heart, lung, kidney issues He has tremors & a seizure disorder, and is hard of hearing. He says his tremors are controlled with Botox injections 4. Right basal joint osteoarthritis He complains of pain with use of his thumb, including heavy lifting I discussed activity modification, they should limit or avoid any heavy or repetitive pinching or gripping activities He should work on ROM exercises, and avoid any gripping or strengthening activities I discussed the use of assistive devices for daily activity He can follow up prn to discuss treatment options if his symptoms do not improve Please note that greater than 30 minutes was spent with this patient going over the history, evaluating the patient and radiographs, formulating possible treatment options, discussing them with the patient, and documenting the visit. Scribed for Margarita Adames MD by Kalin Coughlin, medical driver, on 10/22/24 at 1:00 PM, EST. Orders: Orders FL guided needle placement Today M19.031 - Primary osteoarthritis, right wrist XR hand RT min 3V Today M79.641 - Pain in right hand Coding Level of Care Code Est Pt Level 5 (38585) Diagnoses Osteoarthritis of right wrist M19.031 Cubital tunnel syndrome on right G56.21 Carpal tunnel syndrome of right wrist G56.01 [place] (hard of hearing) H91.90 Osteoarthritis of carpometacarpal joint of right thumb M18.11 CPT Codes Fracture Care - Fracture Billing Code: Fracture Billing Code ([id number])
--- OUTSIDE RECORDS SUMMARY | 2024-10-22 13:21 | XMS_ITS | Encounter Summary ---
Author Organization [facility] Address [address] [place] [address] Care Team Providers Care Gel Coater Name Role Phone Norman Lopez MD Primary Care Provider [phone]- [phone] Encounter Details Date Type Department Care Team (Late st Contact Info) Description 05/23/2024 Lab Requisition [facility] - Main Lab [address] [facility] [address] Patricio Mijares MD [address] [place], [place] [address] Elevated prostate specific antigen (PSA) Social History [...] (05/21/2024) Final Diagnosis A. Prostate, Left Middle [place] Biopsy: - Benign prostatic tissue. B. Prostate, Left Lateral [place] Biopsy: - Benign prostatic tissue. C. Prostate, Left Middle Middle Biopsy: - Benign prostatic tissue. D. Prostate, Left Lateral Middle Biopsy: - Benign prostatic tissue. E. Prostate, Left Middle Base Biopsy: - Benign prostatic tissue. F. Prostate, Left Lateral Base Biopsy: - Benign prostatic tissue. G. Prostate, Left Anterior Peripheral Zone Biopsy: - Benign prostatic tissue. H. Prostate, Right Middle [place] Biopsy: - Benign prostatic tissue. I. Prostate, Right Lateral [place] Biopsy: - Benign prostatic tissue. J. Prostate, Right Middle Middle Biopsy: - Benign prostatic tissue. K. Prostate, Right Lateral Middle Biopsy: - Benign prostatic tissue. L. Prostate, Right Middle Base Biopsy: - Benign prostatic tissue. M. Prostate, Right Lateral Base Biopsy: - Benign prostatic tissue. 05/24/2024 1:[address] [facility] Clinical Information Elevated PSA = 8.5 (04/26/24) [id number] 05/24/2024 1:05 PM EDT [facility] Gross Description A. Prostate, Left Middle [place] Biopsy: Received, properly labeled, are two H and E stained slides and two unstained slides. B. Prostate, Left Lateral [place] Biopsy: Received, properly labeled, are two H [...] two unstained slides. H. Prostate, Right Middle [place] Biopsy: Received, properly labeled, are two H and E stained slides and two unstained slides. I. Prostate, Right Lateral [place] Biopsy: Received, properly labeled, are two H [...] unstained slides. /al 05/24/2024 1:[address] [facility] Disclaimer Unless otherwise specified, all tissue is 10% NB formalin fixed and paraffin embedded. Technical pathology services provided by [facility] at [address] [place] [address] [address], [place] [address] (CLIA #[id number]/S nilson Shi MD, Piano Tuner) 05/24/2024 1:[address] [facility] Tissue Prostate / Unknown 05/21/20242024 [...] MD LAB PATHOLOGY ORDERABLES Fi nal Result [facility] [address] [place] [address], documented in this encounter Visit Diagnoses Diagnosis Elevated prostate specific antigen (PSA) documented in this encounter Care Teams Gel Coater Relationship Specialty Start Date End Date Norman Lopez MD PCP - General Internal Medicine 05/06/24 documented as of this encounter
--- OUTSIDE RECORDS SUMMARY | 2024-10-22 13:21 | XMS_ITS | Encounter Summary ---
Author Organization [facility] Address [address] [place] [address] Care Team Providers Care Hand Bulldozer Name Role Phone Norman Lopez MD Primary Care Provider +1- [phone] Encounter Details Date Type Department Care Team (Late st Contact Info) Description 05/06/2024 Lab Requisition [facility] - Main Lab [address] [place] [address] Ortega Mccoy Testicular hypofunction Social [...] LAB CHEMISTRY METHOD 05/06/2024 3:36 PM EDT [facility] Blood Venous blood specimen / Unknown 05/06/2024 10:59 AM EDT 05/06/2024 2:36 PM EDT us Ortega Mccoy LAB BLOOD ORDERABLES Final Resul t [facility] [address] [place] [address], documented in this encounter Visit Diagnoses Diagnosis Testicular hypofunction Other testicular hypofunction documented in this encounter Care Teams Hand Bulldozer Relationship Specialty Start Date End Date Norman Lopez MD PCP - General Internal Medicine 05/06/24 documented as of this encounter
--- OUTSIDE RECORDS SUMMARY | 2024-10-22 13:21 | XMS_ITS | Clinical Summary ---
Author Organization [address] [facility] Address [address] [place] [address] Phone Care Team Providers Care Cement Finisher Apprentice Name Role Phone Norman Lopez MD Primary Care Provider +1- [phone] Encounters Date Type Department Care Team Description 07/26/2024 [facility] Neurodiagnostic [address] [place] [address] [phone] Elvira Morgan MD Epilepsy, unspecified, not intractable, without status epilepticus ([facility] V24, [facility] V28) 07/25/2024 [facility] Neurodiagnostic [address] [place] [address] [phone] Elvira Morgan MD Epilepsy, unspecified, not intractable, without status epilepticus ([facility] V24, [facility] V28) 07/24/2024 [facility] Neurodiagnostic [address] [place] [phone] Elvira Morgan MD Epilepsy, unspecified, not intractable, without status epilepticus ([facility] V24, [facility] V28) from Last 3 Months Social History [...] age to complete this topic Insurance MEDICARE [facility] Care Teams Cement Finisher Apprentice Relationship Specialty Start Date End Date Norman Lopez MD PCP - General Internal Medicine 05/06/24
--- OUTSIDE RECORDS SUMMARY | 2024-10-22 13:21 | XMS_ITS | Clinical Summary ---
Author Organization [facility] Address [address] [facility] [place] [phone] Phone Care Team Providers Care Ms Sql Dba Name Role Phone Pcp, Unknown Primary Care [...] - 09/04/2024 11:59 PM EDT Hospital Encounter [facility] [address] [place] [phone] Dedrick Hua MD, PhD Discharge Disposition: Home or Self Care 09/04/2024 8:07 AM EDT - 09/04/2024 12:25 PM EDT Hospital Encounter [facility] [address] [place] [phone] Dedrick Hua MD, PhD Discharge Disposition: Home or Self Care 09/01/2024 Orders Only [facility] Neurosurgery [address] [facility] [facility], 5th Floor, [address] [place] [address] Alvaro Waters CNP, DNP Pituitary cyst (Primary Dx) 08/19/2024 1:00 PM EDT Office Visit [facility] Neurosurgery [address] [facility], 5th Floor, [address] [place] [phone] Florence Ma MD Pituitary cyst (Primary Dx) 08/19/2024 Orders Only [facility] Neurosurgery [address] [facility] [facility], [address]th [address], [address] [place] [address] Florence Ma MD 08/19/2024 Orders Only [facility] Neurosurgery [address] [facility], [address]th [address], [address] [place] [address] Alexandrea Tidwell MD 08/13/2024 12:40 PM EDT - 08/13/2024 11:59 PM EDT Hospital Encounter [facility] Laboratory [address] [place] [address] Dedrick Hua MD, PhD Discharge Disposition: Home or Self Care 08/13/2024 10:30 AM EDT Office Visit [facility] Department of Neurology [address] [address] Dedrick Hua MD, PhD Tremor (Primary Dx); Gait disorder 08/05/2024 Ancillary Orders [facility] [address] [place] [address] Dedrick Hua MD, PhD 07/24/2024 Ancillary Procedure [facility] [address] [place] [address] Dedrick Hua MD, PhD 07/23/2024 Ancillary Orders [facility] [address] [place] [address] Florence Ma MD from Last 3 Months [...] 08/13/2024 10:46 AM EDT Plan of Treatment Health Maintenance Due Date Last Done Comments Adult Td,Tdap Booster 1945 LIPID PANEL 1946 TSH LEVEL 1946 DEPRESSION SCREENING 1958 SMOKING Hx and SMOKELESS TOBACCO SCREENING 1959 HEPATITIS C SCREENING 1964 ZOSTER VACCINES (1 of 2) 1996 PNEUMOCOCCAL VACCINES (50+ years) (2 of 2 - PCV) 02/17/2017 02/18/2016 RSV VACCINE (1 - 1-dose 75+ series) 2021 COVID-19 VACCINE (4 - season) 2023 01/04/2021, 06/03/2020, 05/13/2020 INFLUENZA VACCINE (#1) 2024 3, 11/23/2021, 03/04/2021, Additional history exists HEPATITIS A VACCINES Aged Out No long [...] ATTESTATION: Shyam Ferguson, as teaching physician have reviewed the images, [...] Cardiology Report Only (08/19/2024 1:10 PM EDT) us Historical Provider [facility] ORDER DAVIS Final Result * GAD65 antibody, blood (08/13/2024 12:41 PM EDT) GAD65 ANTIBODY 0.00 <=0.02 nmol/L [facility] DPT OF LAB MED AND PAT+ Comment: (NOTE) ADDITIONAL INFORMATION This test was developed and its performance characteristics determined by [facility] in a manner consistent with CLIA requirements. This test has not been cleared or approved by the U.S. Food and Drug Administration. 08/13/2024 12:4 1 PM EDT 08/13/2024 12:44 PM EDT us Dedrick Hua MD, PhD LAB BLOOD ORDERABLES Final Result [facility] DPT OF LAB MED AND PAT+ [address] [place] [address] * MRI Brain Outside (No Interpretation) (07/24/2024 12:00 AM EDT) Narrative EFRENH - 08/05/2024 1:38 PM EDT This study is for PACS storage only and not for interpretation. us Dedrick Hua MD, PhD IMG OUTSIDE IMAGING W/OUT INTERPRETATION Final Result Performing Organization Address City/[facility] Co de Phone Number [facility] from Last 3 Months Insurance MEDICARE PART A & B [employer] MEDEX SUPPLEMENT MEDICARE PART A & B [employer] MED[employer] SUPPLEMENT MEDICARE PART A & B [employer] MED[employer] SUPPLEMENT MEDICARE PART A & B [employer] MEDEX SUPPLEMENT MEDICARE PART A & B BLUE [employer] MEDEX SUPPLEMENT MEDICARE PART A & B Reverse Mortgage Lenders Direct CROSS MEDEX SUPPLEMENT Care Teams Ms Sql Dba Relationship Specialty Start Date End Date Pcp, Unknown PCP - General 06/19/24 Additional Source Comments The information contained in this document represents components of the legal health record. It is not the complete legal health record.[facility]
--- OUTSIDE RECORDS SUMMARY | 2024-10-22 13:21 | XMS_ITS | Continuity of Care Document ---
Author Organization [facility] [address] [facility] [address] [place] [address] Phone [phone] Care Team Providers Care Sample Coordinator Name Role Phone Mike Jolley M.D. Care Team Information Recei sudhir [phone] Problems Active Problems Provider Date Hypogonadism Lino [...] Indications Order ing Provider Date Propranolol HCL [id number] Caps ER 24HR 4 x per week Lino Liao M.D. 07/12/2022 Testosterone Cnuudcvxq654xy/ml Solution Inject 200MG Intramuscularly Every 2 Weeks 2ml E29.1 Libby Lopez M.D. Glardyfijy8ti Tablets Take 1 Tablet By Mouth 4 Times A Day as Needed Unknown Amphetamine-Dextroam vnihgungk08wc Tablets Take 1 Tablet By Mouth 3 Times A Day as Needed Unknown Escitalopram Ysbvjzf35ux Tablets Take 1 Tablet By Mouth Every Day In The Morning Unknown Diclofenac Mymgwq48yi Tablets DR Take 1 Tablet By Mouth Twice A Day as Needed Mike Jolley M.D. Qrlresdxxv62is Capsules DR Take 1 Capsule By Mouth Every Day For 90 Days Mike Jolley M.D. Atorvastatin Vjdeuva39sk Tablets Take 1 Tablet By Mouth Every Day Mike Jolley M.D. Amlodipine Xcslamkt8aw Tablets Take 1 Tablet By Mouth Every Day Lakhwinder De Souza MD Levothyroxine Jcngbr834kbk Tablets Take 1 Tablet By Mouth Every Day Mike Jolley M.D. Amtcgygcf78qz Tablets Take 1 Tablet By Mouth Two [...] Testosterone 549 ng/dL 264-916 1 Testosterone 01/10/2023 [facility] Testosterone 298 ng/dL (280-800 ) Testosterone 07/12/2022 [facility] Testosterone 560 ng/dL (280-800 ) 2 Complete Abc With Diff 07/12/2022 [facility] [id number] Duplicate order <SEE NOTE> 3 WBC 8.1 [...] ) Lymph # 1.0 K/MM3 (0.8-3.1 ) Douglas# 1.1 K/MM3 (0.4-1.3 ) Eo # 0.3 K/MM3 (0.0-0.4 ) Baso # 0.0 K/MM3 (0.0-0.1 ) Abs. Imm Gran 0.0 K/MM3 Neut 70.1 % (44-76) Lymph 12.3 % Low (15-43) Monocyte 13.2 % High (4.5-10. 5) Eo 3.5 % (0-6) Baso 0.4 % (0-2) Imm Gran 0.5 % Complete Abc With Diff 01/27/2022 [facility] WBC 4.8 K/MM3 [...] ) Lymph # 0.9 K/MM3 (0.8-3.1 ) Douglas# 0.7 K/MM3 (0.4-1.3 ) Eo # 0.1 K/MM3 (0.0-0.4 ) Baso # 0.0 K/MM3 (0.0-0.1 ) Abs. Imm Gran 0.0 K/MM3 Neut 62.8 % (44-76) Lymph 19.8 % (15-43) Monocyte 13.7 % High (4.5-10. 5) Eo 2.9 % (0-6) Baso 0.6 % (0-2) Imm Gran 0.2 % Testosterone 01/27/2022 [facility] Testosterone 141 ng/dL Low (280-800 ) Complete Abc With Diff 01/11/2022 [facility] WBC 5.0 K/MM3 [...] ) Lymph # 1.0 K/MM3 (0.8-3.1 ) Douglas# 0.8 K/MM3 (0.4-1.3 ) Eo # 0.2 K/MM3 (0.0-0.4 ) Baso # 0.0 K/MM3 (0.0-0.1 ) Abs. Imm Gran 0.0 K/MM3 Neut 59.0 % (44-76) Lymph 20.4 % (15-43) Monocyte 16.8 % High (4.5-10. 5) Eo 3.2 % (0-6) Baso 0.4 % (0-2) Imm Gran 0.2 % Testosterone 01/11/2022 [facility] Testosterone 345 ng/dL (280-800 ) 1 Adult male reference interval is based on a population of healthy nonobese males (BMI <30) between 19 and 39 years old. Venecia et.al. JCEM 2017,102;5049-6260. PMID: [id number]. 2 Duplicate order canc elled via interface [...]
== END 2024-10-22 13:39 | disposition home or self-care (01) ==
LOC: HO.HOS 12:38
PROVIDERS: PCP Internal Medicine; Visit Provider Orthopaedic Surgery
DX: M19.031 Primary osteoarthritis, right wrist (principal); G56.21 Lesion of ulnar nerve, right upper limb; G56.01 Carpal tunnel syndrome, right upper limb; H91.90 Unspecified hearing loss, unspecified ear; M18.11 Unilateral primary osteoarthritis of first carpometacarpal joint, right hand
CPT/HCPCS: 20605; 99214

== ENCOUNTER → 2024-10-22 12:38 | Outpatient (BNV) | payer MEDICARE, SELFPAY | PROVIDERS: Visit Provider Radiology Diagnostic Radiology | DX: M19.041 Primary osteoarthritis, right hand (principal) | CPT/HCPCS: 73130 ==

== ENCOUNTER 2024-10-22 12:59 | Outpatient (REF) | payer MEDICARE, SELFPAY ==
--- NOTE | ~2024-10-22 | XR_ITS ---
EXAMINATION: XR HAND 3 OR MORE VIEWS RIGHT HISTORY: M79.641 - Pain in right hand COMPARISON: There are no prior studies available for comparison. FINDINGS: Three views of the right hand are submitted. There are cystic changes in the distal scaphoid. A well-corticated osseous density at the dorsum of the wrist may represent an old triquetral fracture. No acute fracture or dislocation is seen. There is severe osteoarthritis of the 1st carpometacarpal joint, with joint space narrowing and osteophyte formation. There is mild to moderate osteoarthritis of the MCP joint of the thumb and the interphalangeal joint of the thumb. The soft tissues are unremarkable. XR/XR hand RT min 3V IMPRESSION: Degenerative changes of the right hand as described. Electronically signed by: Mike Novak MD 10/22/2024 12:48 PM EDT
--- NOTE | ~2024-10-22 | FL_ITS ---
EXAMINATION: FL GUIDANCE ONLY FOR NEEDLE PLACEMENT HISTORY: M19.031 - Primary osteoarthritis, right wrist COMPARISON: Correlation is made with plain films of the right hand dated 10/22/2024. TECHNIQUE: Fluoroscopy time: 7.2 seconds. DAP: 4308.8 mGym2 Images: 1. FINDINGS: A single fluoroscopic spot film of the right wrist demonstrates a needle in place. FL/FL guided needle placement IMPRESSION: Fluoroscopy during procedure. Please see procedure report for additional information. Electronically signed by: Mike Novak MD 10/23/2024 07:08 AM EDT
== END 2024-10-22 13:00 | disposition home or self-care (01) ==
LOC: HO.HOSX 12:59
PROVIDERS: Visit Provider Orthopaedic Surgery
DX: M19.031 Primary osteoarthritis, right wrist (principal); G56.01 Carpal tunnel syndrome, right upper limb; G56.21 Lesion of ulnar nerve, right upper limb; M18.11 Unilateral primary osteoarthritis of first carpometacarpal joint, right hand; H91.90 Unspecified hearing loss, unspecified ear
CPT/HCPCS: 20605; 73130; 77002; 99212; J0665; J1010

== ENCOUNTER 2024-11-26 11:21 | Outpatient (AMB) | payer MEDICARE, SELFPAY ==
--- NOTE | 2024-11-26 11:25 | A.OFFVIS_ITS ---
Vital Signs 11/26/24 11:32 Height 5 ft 6.5 in Weight 163 lb BMI 25.9 BP 140/73 H Blood Pressure Location Rt brachial Position Sitting Pulse 60 Pulse Source Pulse Oximeter Pulse Oximetry (%) 96 Oxygen Delivery Method Room Air Intake Visit Reasons: Preop RT cubital/CTR 12/05/24 AR Intake Note: Joel is a 79 year old left hand dominant male who presents today pre- operatively for discussion of their Right Cubital Tunnel & Carpal Tunnel Release scheduled for 12/05/[address] Adames. Consents signed in office today. Allergies adhesive tape (ADHESIVE TAPE) Allergy (Intermediate, Verified 08/27/24 16:19) RASH cashew nut (CASHEW NUT) Allergy (Intermediate, Verified 08/27/24 16:19) SWELLING sulfamethoxazole (From Bactrim) Allergy (Intermediate, Verified 08/27/24 16:19) Rash trimethoprim (From Bactrim) Allergy (Intermediate, Verified 08/27/24 16:19) Rash PERM HAIR DYE Allergy (Severe, Uncoded 08/27/24 16:19) severe rash HPI HPI Preop RT cubital/CTR 12/05/24 AR: Details: Joel is a 79 year old left hand dominant male who presents today pre- operatively for discussion of their Right Cubital Tunnel & Carpal Tunnel Release scheduled for 12/05/[address] Adames. Consents signed in office today. Patient reports symptoms have remained consistent since previous evaluation. No other acute complaints or concerns at this time. 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) History of total left hip arthroplasty (01/31/23) Hx of unilateral orchiectomy Hx of excision of mass H/O colonoscopy (~06/27/23) History of cholecystectomy History of back surgery History of right knee surgery History of left knee surgery History of intestinal surgery Family History Father Clogged artery (heart) Mother Cardiac disease Social History Household Members: None Housing: House Are you a primary child care supervisor to a significant other at home: No Do you presently have visiting nurse or other home services: No Alcohol intake: current Alcohol intake frequency: a few times a week Alcohol type: beer Patient Tobacco Use Status: Never used Tobacco Substance Use Type: Marijuana Advance Directives Date on File: 02/03/23 service: No Current occupational status: retired Cognitive needs: No Hearing needs: Yes (b/l hearing aids ) Vision needs: Yes (rx glasses) Physical Exam Vital Signs: Last Vital Signs Pulse 60 11/26/24 11:32 BP 140/73 H 11/26/24 11:32 Pulse Ox 96 11/26/24 11:32 Oxygen Delivery Method Room Air 11/26/24 11:32 BMI result Body Mass Index 25.9 Const General: no acute distress and alert Orientation/consciousness: patient oriented x3 Neuro General: patient oriented x3 Extrem Other: Evaluation of Right Upper Extremity: The patient is alert, oriented, and in no acute distress Neuro: Dense numbness in the ulnar nerve distribution. Normal sensation in the median nerve distribution today in clinic, including the middle finger. No thenar wasting possibly some early right-sided intrinsic wasting seen in the hypothenar muscle belly. Good APB muscle belly firing and good finger cross Vascular: Cap refill brisk ROM: He can make a fist and extend all his digits No locking or catching ~45 degrees wrist extension ~30 degrees wrist flexion Good prono-supination Nerve Conduction Study: IMPRESSION: 1. This is an abnormal study. 2. 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 3. There is electrodiagnostic evidence for right mild median neuropathy at the wrist. 4. There is no electrodiagnostic evidence for brachial plexopathy or cervical radiculopathy. Rossy Whitehead MD, ARTURO 09/28/23 Psych Appearance: grossly normal Affect: normal affect Attitude: cooperative Assessment & Plan Assessment & Plan (1) Osteoarthritis of right wrist: Code(s): M19.031 - Primary osteoarthritis, right wrist Category: Medical (2) Cubital tunnel syndrome on right: Code(s): G56.21 - Lesion of ulnar nerve, right upper limb Category: Medical (3) Carpal tunnel syndrome of right wrist: Code(s): G56.01 - Carpal tunnel syndrome, right upper limb Category: Medical (4) SOKAOGON (hard of hearing): Code(s): H91.90 - Unspecified hearing loss, unspecified ear Category: Medical (5) 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 Right Cubital tunnel syndrome, significant With dense numbness, with possibly some early intrinsic wasting 3. 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 He also had lots of concerns about the schedule for possible surgery and then the time off from work he is likely going to need afterwards. Lots of time was taken today to make sure that we addressed his concerns and his questions. The risks and benefits of operative treatment were discussed with the patient and the patient wishes to proceed with surgery. These risks include, but are not limited to risk of damage to blood vessels, nerves, tendons, infection, recurrence, incomplete relief of preoperative symptoms, persistent pain, possible need for further surgery and the risks associated with regional blocks and anesthesia. I explained the risks of his sensation not returning, but that surgery is important to maintain muscle function and preserve any sensation possible. He expressed understanding. I explained that it may take up to 9 months post- operatively for any sensation to return. The plan is to take the patient to the operating room sometime in the next few weeks for the following procedures: 1. Right cubital tunnel release, under general 2. Right carpal tunnel release, under general All of the preoperative paperwork including the consent was reviewed today. All the patient's questions were answered. The patient understands that they will be contacted by our forging machine hand soon to schedule this procedure He denies Diabetes, blood thinners, asthma, heart, lung, kidney issues He has tremors & a seizure disorder, and is hard of hearing. 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
[2024-11-26 11:32] VITALS: BP 140/73; PULSE 60; O2SAT 96; BMI 25.9
--- OUTSIDE RECORDS SUMMARY | 2024-11-26 12:52 | XMS_ITS | Encounter Summary ---
Author Organization [facility] Address [address] [place] [address] Care Team Providers Care Computer Systems Analyst Name Role Phone Norman Lopez MD Primary Care Provider [phone]- [phone] Encounter Details Date Type Department Care Team (Late st Contact Info) Description 05/23/[address] [facility] - Main Lab [address] [facility] [place] [address] Patricio Mijares MD [address] [place], [place] [id number] Elevated prostate specific antigen (PSA) Social History [...] (05/21/2024) Final Diagnosis A. Prostate, Left [place] Biopsy: - Benign prostatic tissue. B. Prostate, Left Lateral [place] Biopsy: - Benign prostatic tissue. C. Prostate, Left Middle Middle Biopsy: - Benign prostatic tissue. D. Prostate, Left Lateral Middle Biopsy: - Benign prostatic tissue. E. Prostate, Left Middle Base Biopsy: - Benign prostatic tissue. F. Prostate, Left Lateral Base Biopsy: - Benign prostatic tissue. G. Prostate, Left Anterior Peripheral Zone Biopsy: - Benign prostatic tissue. H. Prostate, Right [place] Biopsy: - Benign prostatic tissue. I. Prostate, Right Lateral [place] Biopsy: - Benign prostatic tissue. J. Prostate, Right Middle Middle Biopsy: - Benign prostatic tissue. K. Prostate, Right Lateral Middle Biopsy: - Benign prostatic tissue. L. Prostate, Right Middle Base Biopsy: - Benign prostatic tissue. M. Prostate, Right Lateral Base Biopsy: - Benign prostatic tissue. 05/24/2024 1:05 PM EDT [facility] Clinical Information Elevated PSA = 8.5 (04/26/24) [id number] 05/24/2024 1:05 PM EDT [facility] Gross Description A. Prostate, Left [place] Biopsy: Received, properly labeled, are two H and E stained slides and two unstained slides. B. Prostate, Left Lateral [place] Biopsy: Received, properly labeled, are two H [...] two unstained slides. H. Prostate, Right [place] Biopsy: Received, properly labeled, are two H and E stained slides and two unstained slides. I. Prostate, Right Lateral [place] Biopsy: Received, properly labeled, are two H [...] unstained slides. /al 05/24/2024 1:05 PM EDT [facility] Disclaimer Unless otherwise specified, all tissue is 10% NB formalin fixed and paraffin embedded. Technical pathology services provided by [facility] at [address] [place] [address] [address], [place] [address] (CLIA #[id number]/S nilson Shi MD, Forest Economist) 05/24/2024 1:05 PM EDT [facility] Tissue Prostate / Unknown [...] MD LAB PATHOLOGY ORDERABLES Fi nal Result [facility] [address] [place] [address], documented in this encounter Visit Diagnoses Diagnosis Elevated prostate specific antigen (PSA) documented in this encounter Care Teams Computer Systems Analyst Relationship Specialty Start Date End Date Norman Lopez MD PCP - General Internal Medicine 05/06/24 documented as of this encounter
--- OUTSIDE RECORDS SUMMARY | 2024-11-26 12:52 | XMS_ITS | Clinical Summary ---
Author Organization [address] Address [address] [place] [address] Phone Care Team Providers Care Primary Teaching Assistant Name Role Phone Norman Lopez MD Primary Care Provider [phone]- [phone] Social History Tobacco Use Types Packs/Day Years [...] 01/26/2022 Social Influencers of Health Screening 01/26/2022 Depression Screening 02/28/2024 COVID-19 Vaccine ( - 2023-2 5 season) 2024 Influenza Vaccine (#1) 2024 HIB Vaccines Aged [...] age to complete this topic Insurance MEDICARE [facility] Care Teams Primary Teaching Assistant Relationship Specialty Start Date End Date Norman Lopez MD PCP - General Internal Medicine 05/06/24
--- OUTSIDE RECORDS SUMMARY | 2024-11-26 12:52 | XMS_ITS | Clinical Summary ---
Author Organization [facility] Address [address] [facility] [address] [place] [phone] Phone Care Team Providers Care Bicycle I Assembler Name Role Phone Pcp, Unknown Primary Care [...] - 09/04/2024 11:59 PM EDT Hospital Encounter [facility] [address] [place] [address] Dedrick Hua MD, PhD Discharge Disposition: Home or Self Care 09/04/2024 8:07 AM EDT - 09/04/2024 12:25 PM EDT Hospital Encounter [facility] [address] [place] [address] Dedrick Hua MD, PhD Discharge Disposition: Home or Self Care 09/01/2024 Orders Only [facility] [address] [facility], 5th Floor, [address] [place] [address] Alvaro Waters, MARTY, DNP Pituitary cyst (Primary Dx) from Last 3 Months Social History Tobacco [...] your housing situation today? I have jesus renteria 08/12/2024 How many times have you move [...] SPECT/CT Routine 09/04/2024 1:28 PM EDT Tremor from Last 3 Months Results * NM [...] by Eduar Lyman. Dedrick Hua MD, PhD [facility] Alissa l Result from Last 3 Months Insurance MEDICARE PART A & B [employer] MEDEX SUPPLEMENT MEDICARE PART A & B [employer] MEDEX SUPPLEMENT MEDICARE PART A & B [employer] MEDEX SUPPLEMENT MEDICARE PART A & B [employer] MEDEX SUPPLEMENT MEDICARE PART A & B Member Subscriber Plan / Payer (Ef fective 2008-Present) Name:Joel Stout Member ID:[id number] Relation to Subscriber:Self Name:Joel Stout Subscriber ID:[id number] Payer ID:[id number] Group ID:Not on file Type:Medicare Address: [employer] [address] [place] [phone] Checkd[employer]In CROSS MEDEX SUPPLEMENT MEDICARE PART A & B [employer] MEDEX SUPPLEMENT Care Teams Bicycle I Assembler Relationship Specialty Start Date End Date Pcp, Unknown PCP - General 06/19/24 Additional Source Comments The information contained in this document represents components of the legal health record. It is not the complete legal health record.[facility]
--- OUTSIDE RECORDS SUMMARY | 2024-11-26 12:52 | XMS_ITS | Encounter Summary ---
Author Organization [facility] Address [address] [place] [address] Care Team Providers Care Apparel Merchandiser Name Role Phone Norman Lopez MD Primary Care Provider [phone]- [phone] Encounter Details Date Type Department Care Team (Late st Contact Info) Description 05/06/2024 Lab Requisition [facility] - Main Lab [address] [place] [address] Ortega Mccoy Testicular hypofunction Social [...] LAB CHEMISTRY METHOD 05/06/2024 3:36 PM EDT [facility] Blood Venous blood specimen / Unknown 05/06/2024 10:59 AM EDT 05/06/2024 2:36 PM EDT us Ortega Mccoy LAB BLOOD ORDERABLES Final Resul t [facility] [address] [place] [address], documented in this encounter Visit Diagnoses Diagnosis Testicular hypofunction Other testicular hypofunction documented in this encounter Care Teams Apparel Merchandiser Relationship Specialty Start Date End Date Norman Lopez MD PCP - General Internal Medicine 05/06/24 documented as of this encounter
== END 2024-11-26 11:56 | disposition home or self-care (01) ==
LOC: HO.HOS 11:22
DX: M19.031 Primary osteoarthritis, right wrist (principal); G56.21 Lesion of ulnar nerve, right upper limb; G56.01 Carpal tunnel syndrome, right upper limb; H91.90 Unspecified hearing loss, unspecified ear; M18.11 Unilateral primary osteoarthritis of first carpometacarpal joint, right hand
CPT/HCPCS: 99214

== ENCOUNTER → 2024-11-26 11:21 | Outpatient (BNVA) | payer MEDICARE, SELFPAY | DX: Z01.818 Encounter for other preprocedural examination (principal); G56.21 Lesion of ulnar nerve, right upper limb; G56.01 Carpal tunnel syndrome, right upper limb; M19.031 Primary osteoarthritis, right wrist; M18.11 Unilateral primary osteoarthritis of first carpometacarpal joint, right hand; H91.90 Unspecified hearing loss, unspecified ear | CPT/HCPCS: 99212 ==

== ENCOUNTER 2024-12-05 11:23 | Day surgery (SDC) | payer MEDICARE, SELFPAY ==
--- OUTSIDE RECORDS SUMMARY | 2024-10-31 09:48 | XMS_ITS | Clinical Summary ---
Author Organization [address] [facility] Address [address] [place] [address] Phone Care Team Providers Care Apparel Manager Name Role Phone Norman Lopez MD Primary Care Provider [phone] Social History Tobacco Use Types Packs/Day Years [...] to complete this topic Insurance MEDICARE [facility] Care Teams Apparel Manager Relationship Specialty Start Date End Date Norman Lopez MD PCP - General Internal Medicine 05/06/24
--- OUTSIDE RECORDS SUMMARY | 2024-10-31 09:48 | XMS_ITS | Continuity of Care Document ---
Author Organization [facility] [address] [facility] [address] [place] [address] Phone [phone] Care Team Providers Care Independent Sales Representative Name Role Phone Mike Jolley M.D. Care Team Information Recei sudhir [phone] Problems Active Problems Provider Date Hypogonadism Lino [...] Indications Order ing Provider Date Propranolol HCL RL895iw Caps ER 24HR 4 x per week Lino Liao M.D. 07/12/2022 Testosterone Owqmkrpkv582pi/ml Solution Inject 200MG Intramuscularly Every 2 Weeks 2ml E29.1 Libby Lopez M.D. Rjnoajfzft8ec Tablets Take 1 Tablet By Mouth 4 Times A Day as Needed Unknown Amphetamine-Dextroam ujicwfxlv25fd Tablets Take 1 Tablet By Mouth 3 Times A Day as Needed Unknown Escitalopram Swetdwx05ai Tablets Take 1 Tablet By Mouth Every Day In The Morning Unknown Diclofenac Glgnvh90tf Tablets DR Take 1 Tablet By Mouth Twice A Day as Needed Mike Jolley M.D. Oqrzsbzwzo45ci Capsules DR Take 1 Capsule By Mouth Every Day For 90 Days Mike Jolley M.D. Atorvastatin Sfatrnu17sp Tablets Take 1 Tablet By Mouth Every Day Mike Jolley M.D. Amlodipine Nvcdfcqs5yh Tablets Take 1 Tablet By Mouth Every Day Lakhwinder De Souza MD Levothyroxine Nmremf427ese Tablets Take 1 Tablet By Mouth Every Day Mike Jolley M.D. Fmbovxxxm98hg Tablets Take 1 Tablet By Mouth Two [...] Testosterone 549 ng/dL 264-916 1 Testosterone 01/10/2023 [facility] Testosterone 298 ng/dL (280-800 ) Testosterone 07/12/2022 [facility] Testosterone 560 ng/dL (280-800 ) 2 Complete Abc With Diff 07/12/2022 [facility] [id number] Duplicate order <SEE NOTE> 3 WBC 8.1 [...] ) Lymph # 1.0 K/MM3 (0.8-3.1 ) Kings# 1.1 K/MM3 (0.4-1.3 ) Eo # 0.3 K/MM3 (0.0-0.4 ) Baso # 0.0 K/MM3 (0.0-0.1 ) Abs. Imm Gran 0.0 K/MM3 Neut 70.1 % (44-76) Lymph 12.3 % Low (15-43) Monocyte 13.2 % High (4.5-10. 5) Eo 3.5 % (0-6) Baso 0.4 % (0-2) Imm Gran 0.5 % Complete Abc With Diff 01/27/2022 [facility] WBC 4.8 K/MM3 (4.0-11. [...] ) Lymph # 0.9 K/MM3 (0.8-3.1 ) Kings# 0.7 K/MM3 (0.4-1.3 ) Eo # 0.1 K/MM3 (0.0-0.4 ) Baso # 0.0 K/MM3 (0.0-0.1 ) Abs. Imm Gran 0.0 K/MM3 Neut 62.8 % (44-76) Lymph 19.8 % (15-43) Monocyte 13.7 % High (4.5-10. 5) Eo 2.9 % (0-6) Baso 0.6 % (0-2) Imm Gran 0.2 % Testosterone 01/27/2022 [facility] Testosterone 141 ng/dL Low (280-800 ) Complete Abc With Diff 01/11/2022 [facility] WBC 5.0 K/MM3 (4.0-11. [...] ) Lymph # 1.0 K/MM3 (0.8-3.1 ) Kings# 0.8 K/MM3 (0.4-1.3 ) Eo # 0.2 K/MM3 (0.0-0.4 ) Baso # 0.0 K/MM3 (0.0-0.1 ) Abs. Imm Gran 0.0 K/MM3 Neut 59.0 % (44-76) Lymph 20.4 % (15-43) Monocyte 16.8 % High (4.5-10. 5) Eo 3.2 % (0-6) Baso 0.4 % (0-2) Imm Gran 0.2 % Testosterone 01/11/2022 [facility] Testosterone 345 ng/dL (280-800 ) 1 Adult male reference interval is based on a population of healthy nonobese males (BMI <30) between 19 and 39 years old. Venecia et.al. JCEM 2017,102;9155-9803. PMID: [id number]. 2 Duplicate order canc elled via interface [...]
--- OUTSIDE RECORDS SUMMARY | 2024-10-31 09:48 | XMS_ITS | Clinical Summary ---
Author Organization [facility] Address [address] [facility] [address] [place] [address] Phone Care Team Providers Care Prefitter Doors Name Role Phone Pcp, Unknown Primary Care [...] - 09/04/2024 11:59 PM EDT Hospital Encounter [facility] [address] [place] [address] Dedrick Hua MD, PhD Discharge Disposition: Home or Self Care 09/04/2024 8:07 AM EDT - 09/04/2024 12:25 PM EDT Hospital Encounter [facility] [address] [place] [address] Dedrick Hua MD, PhD Discharge Disposition: Home or Self Care 09/01/2024 Orders Only [facility] [address] [facility], 5th [address], [address] [place] [address] Alvaro Waters CNP, DNP Pituitary cyst (Primary Dx) 08/19/2024 1:00 PM EDT Office Visit [facility] [address] [facility], 5th Floor, [address] [place] [address] Florence Ma MD Pituitary cyst (Primary Dx) 08/19/2024 Orders Only [facility] [address] [facility], [address]th [address], [address] [place] [address] Florence Ma MD 08/19/2024 Orders Only [facility] [address] [facility], 5th [address], [address] [place] [address] Alexandrea Tidwell MD 08/13/2024 12:40 PM EDT - 08/13/2024 11:59 PM EDT Hospital Encounter [facility] [address] [place] [address] Dedrick Hua MD, PhD Discharge Disposition: Home or Self Care 08/13/2024 10:30 AM EDT Office Visit [facility] Department of Neurology [address] [facility] [address] [place] [address] Dedrick Hua MD, PhD Tremor (Primary Dx); Gait disorder 08/05/2024 Ancillary Orders [facility] [address] [place] [address] Dedrick uHa MD, PhD from Last 3 Months Social History Tobacco [...] VACCINE (1 - 1-dose 75+ series) 2021 INFLUENZA VACCINE (#1) 2024 3, 11/23/2021, 03/04/2021, Additional history exists COVID-19 VACCINE ( season) 2024 01/04/2021, 06/03/2020, 05/13/2020 HEPATITIS A VACCINES Aged [...] Routine 08/13/2024 12:41 PM EDT Gait disorder from Last 3 Months Results * NM [...] by Eduar Lyman. Dedrick Hua MD, PhD [facility] [place] BRAIN Alissa l Result * Outside Cardiology Report Only (08/19/2024 1:10 PM EDT) Historical Provider [facility] ORDER DAVIS Final Result * GAD65 antibody, blood (08/13/2024 12:41 PM EDT) GAD65 ANTIBODY 0.00 <=0.02 nmol/L [facility] MED AND PAT+ Comment: (NOTE) ADDITIONAL INFORMATION This test was developed and its performance characteristics determined by [facility] in a manner consistent with CLIA requirements. This test has not been cleared or approved by the U.S. Food and Drug Administration. 08/13/2024 12:4 1 PM EDT 08/13/2024 12:44 PM EDT Dedrick Hua MD, PhD LAB BLOOD ORDERABLES Final Result [facility] PAT+ [address] [place] [address] from Last 3 Months Insurance MEDICARE PART A & B Member Subscriber Plan / Payer (Ef fective 2008-Present) Name:Joel Stout Member ID:[id number] Relation to Subscriber:Self Name:Joel Stout Subscriber ID:[id number] Payer ID:[id number] Group ID:Not on file Type:Medicare Address: [employer] [address] [place] [phone] [employer] MEDEX SUPPLEMENT MEDICARE PART A & B [employer] MEDEX SUPPLEMENT MEDICARE PART A & B [employer] MEDEX SUPPLEMENT MEDICARE PART A & B [employer] MEDEX SUPPLEMENT MEDICARE PART A & B [employer] MEDEX SUPPLEMENT MEDICARE PART A & B [employer] MEDEX SUPPLEMENT Care Teams Prefitter Doors Relationship Specialty Start Date End Date Pcp, Unknown PCP - General 06/19/24 Additional Source Comments The information contained in this document represents components of the legal health record. It is not the complete legal health record.[facility]
--- OUTSIDE RECORDS SUMMARY | 2024-10-31 09:48 | XMS_ITS | Encounter Summary ---
Author Organization [facility] Address [address] [place] [address] Care Team Providers Care Trench Digging Machine Operator Name Role Phone Norman Lopez MD Primary Care Provider [phone] Encounter Details Date Type Department Care Team (Late st Contact Info) Description 05/06/[address] [facility] [address] [place] [address] Ortega Mccoy Testicular hypofunction Social [...] CHEMISTRY METHOD 05/06/2024 3:36 PM EDT [facility] Blood Venous blood specimen / Unknown 05/06/2024 10:59 AM EDT 05/06/2024 2:36 PM EDT us Ortega Mccoy LAB BLOOD ORDERABLES Final Resul t [facility] [address] [place] [address], documented in this encounter Visit Diagnoses Diagnosis Testicular hypofunction Other testicular hypofunction documented in this encounter Care Teams Trench Digging Machine Operator Relationship Specialty Start Date End Date Norman Lopez MD PCP - General Internal Medicine 05/06/24 documented as of this encounter
--- OUTSIDE RECORDS SUMMARY | 2024-10-31 09:48 | XMS_ITS | Encounter Summary ---
Author Organization [facility] Address [address] [place] [address] Care Team Providers Care Mounter Saxophones Name Role Phone Norman Lopez MD Primary Care Provider [phone]- [phone] Encounter Details Date Type Department Care Team (Late st Contact Info) Description 05/23/2024 Lab Requisition [facility] Main Lab [address] [facility] [place] [address] Patricio Mijares MD [address] [place], [place] [id number] Elevated prostate specific antigen (PSA) Social History [...] (05/21/2024) Final Diagnosis A. Prostate, Left Middle Falcon Biopsy: - Benign prostatic tissue. B. Prostate, Left Lateral Falcon Biopsy: - Benign prostatic tissue. C. Prostate, Left Middle Middle Biopsy: - Benign prostatic tissue. D. Prostate, Left Lateral Middle Biopsy: - Benign prostatic tissue. E. Prostate, Left Middle Base Biopsy: - Benign prostatic tissue. F. Prostate, Left Lateral Base Biopsy: - Benign prostatic tissue. G. Prostate, Left Anterior Peripheral Zone Biopsy: - Benign prostatic tissue. H. Prostate, Right Middle Falcon Biopsy: - Benign prostatic tissue. I. Prostate, Right Lateral Falcon Biopsy: - Benign prostatic tissue. J. Prostate, Right Middle Middle Biopsy: - Benign prostatic tissue. K. Prostate, Right Lateral Middle Biopsy: - Benign prostatic tissue. L. Prostate, Right Middle Base Biopsy: - Benign prostatic tissue. M. Prostate, Right Lateral Base Biopsy: - Benign prostatic tissue. 05/24/2024 1:05 PM EDT [facility] Clinical Information Elevated PSA = 8.5 (04/26/24) [id number] 05/24/2024 1:05 PM EDT [facility] Gross Description A. Prostate, Left Middle Falcon Biopsy: Received, properly labeled, are two H and E stained slides and two unstained slides. B. Prostate, Left Lateral Falcon Biopsy: Received, properly labeled, are two H [...] two unstained slides. H. Prostate, Right Middle Falcon Biopsy: Received, properly labeled, are two H and E stained slides and two unstained slides. I. Prostate, Right Lateral Falcon Biopsy: Received, properly labeled, are two H [...] unstained slides. /al 05/24/2024 1:05 PM EDT [facility] Disclaimer Unless otherwise specified, all tissue is 10% NB formalin fixed and paraffin embedded. Technical pathology services provided by [facility] at [address] [place] [address] [address], [place] [address] (CLIA #[id number]/S nilson Shi MD, Order Manager) 05/24/2024 1:05 PM EDT [facility] Tissue Prostate / Unknown [...] MD LAB PATHOLOGY ORDERABLES Fi nal Result [facility] [address] [place] [address], documented in this encounter Visit Diagnoses Diagnosis Elevated prostate specific antigen (PSA) documented in this encounter Care Teams Mounter Saxophones Relationship Specialty Start Date End Date Norman Lopez MD PCP - General Internal Medicine 05/06/24 documented as of this encounter
[2024-12-03 09:56] VITALS: BMI 25.9
--- NOTE | 2024-12-04 13:04 | HO.ANESPROP2 ---
Documented by User: Edelmira Moreno NP 12/04/24 15:01 HPI - Anesthesia Eval Consult details Narrative: 79 yr old male for right cubital tunnel release, carpal tunnel release s/p total hip 12/2023 with GA, ETT 7.5 Follows [facility] Cards, last visit 09/2024, dyspnea was discussed, thought likely related to asthma & deconditioning; echo was ordered to check for structural abnormalities but not yet completed. *Spoke to pt, his activity is significantly limited due to back pain; denies CP. He states he never uses an inhaler, but at one point prescribed one for exercise induced asthma. GERD: on PPI STARLA: had home sleep study via [facility] 07/20[facility], more definitive study recommended. Essential tremors: has seen 5 neurologists, not on any medications since botox injections resolved the tremors. 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 (Acute) Osteoarthritis of right knee (Acute) Osteoarthritis of left knee (Acute) Osteoarthritis of right hip (Acute) Osteoarthritis of left hip (Acute) Varus deformity of knee (Acute) Bilateral primary osteoarthritis of knee (Acute) Bilateral primary osteoarthritis of hip (Acute) [place] (hard of hearing) (Acute) Left otitis media (Acute) Left otitis externa (Acute) Bilateral inguinal hernia (Acute) Polycythemia (Acute) Hyperkalemia (Acute) Hypertension (Acute) [place] (dyspnea on exertion) (Acute) Insomnia (Acute) Abnormal pituitary luteinizing hormone (LH) (Acute) Abnormal FSH level (Acute) Memory change (Acute) Essential tremor (Acute) Seizure disorder (Acute) Joint pain (Acute) Lesion of pituitary gland (Acute) Abnormal involuntary movements (Acute) Anxiety (Acute) Depression (Acute) BPH loc w urin obs/LUTS (Acute) Hypothyroid (Acute) HTN (hypertension) (Acute) Testicular cancer (Acute) Depression (Acute) ADD (attention deficit disorder) (Acute) Status post total hip replacement, right (Acute 01/02/24) Asthma (Acute) Past Medical History Medical History Insomnia Abnormal pituitary luteinizing hormone (LH) Abnormal FSH level Memory change Essential tremor Seizure disorder Joint pain Lesion of pituitary gland Abnormal involuntary movements Anxiety BPH loc w urin obs/LUTS History of recurrent UTIs Incomplete bladder emptying ADD (attention deficit disorder) Enlarged prostate Hyperkalemia Tardive dyskinesia Hard of hearing Hypothyroid Depression Polycythemia Osteoarthritis HTN (hypertension) Asthma Testicular cancer Family History Family History Father Clogged artery (heart) Mother Cardiac disease Family history of problems with anesthesia: No Surgical History Surgical History Status post total hip replacement, 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) History of total left hip arthroplasty (01/31/23) Hx of unilateral orchiectomy Hx of excision of mass H/O colonoscopy (~06/27/23) History of cholecystectomy History of back surgery History of right knee surgery History of left knee surgery History of intestinal surgery History of Problems with Anesthesia: No Social History Social History Household Members: None Housing: House Are you a primary pharmacy customer care specialist to a significant other at home: No Do you presently have visiting nurse or other home services: No Alcohol intake: current Alcohol intake frequency: does not drink Alcohol type: beer Patient Tobacco Use Status: Never used Tobacco Use of substances other than those prescribed or required for medical reasons: No Substance Use Type: Marijuana Have you been hit, kicked, punched, or otherwise hurt by someone within the past year? If so, by whom?: No Are you DNR?: No Advance Directives: No Advance Directives Information Provided: Yes Advance Directives Date on File: 02/03/23 Poor oral hygiene: No service: No Current occupational status: retired Cognitive needs: No Hearing needs: Yes (b/l hearing aids ) Vision needs: Yes (rx glasses) Meds Allergies Allergy/AdvReac Type Severity Reaction Status Date / Time adhesive tape (ADHESIVE TAPE) Allergy Intermediate RASH Verified 08/27/24 16:19 cashew nut (CASHEW NUT) Allergy Intermediate SWELLING Verified 08/27/24 16:19 sulfamethoxazole (From Allergy Intermediate Rash Verified 08/27/24 16:19 Bactrim) trimethoprim (From Bactrim) Allergy Intermediate Rash Verified 08/27/24 16:19 PERM HAIR DYE Allergy Severe severe rash Uncoded 08/27/24 16:19 Home Medications ?Medication ?Instructions ?Recorded ?Confirmed ?Last Taken ?Type cholecalciferol (vitamin D3) 25 25 mcg PO DAILY 04/30/20 12/03/24 Unknown History mcg (1,000 unit) capsule tamsulosin 0.4 mg capsule 0.4 mg PO BID 04/30/20 12/03/24 01/31/23 History methenamine hippurate 1 gram tablet 1 g PO BID 08/18/22 12/03/24 01/31/23 History multivitamin 1 tab PO DAILY 08/18/22 12/05/24 12/05/24 History hydrocortisone 1 % lotion 1 appl topical DAILY PRN Itchy 01/02/24 12/03/24 Unknown History Scalp primidone 50 mg tablet 50 mg PO TID 02/08/24 12/05/24 12/05/24 History propranolol 120 mg capsule,24 120 mg PO Q24H 02/08/24 12/03/24 Unknown History hr,extended release alprazolam 1 mg tablet 1 mg PO ONCE 03/27/24 12/03/24 Unknown History dextroamphetamine-amphetamine 15 15 mg PO BID 05/22/24 12/03/24 Unknown History mg tablet (Adderall) duloxetine 60 mg capsule,delayed 60 mg PO QAM 08/20/24 12/05/24 12/05/24 History release Exam Height,Weight and Vital Signs: Height 5 ft 6.5 in Weight 73.936 kg Assessment and Plan Final Anesthetic Review Family History of Problems with Anesthesia: No History of Problems with Anesthesia: No Documented by User: Flower Rollins MD 12/05/24 13:45 [facility] Past Medical History Medical History Insomnia Abnormal pituitary luteinizing hormone (LH) Abnormal FSH level Memory change Essential tremor Seizure disorder Joint pain Lesion of pituitary gland Abnormal involuntary movements Anxiety BPH loc w urin obs/LUTS History of recurrent UTIs Incomplete bladder emptying ADD (attention deficit disorder) Enlarged prostate Hyperkalemia Tardive dyskinesia Hard of hearing Hypothyroid Depression Polycythemia Osteoarthritis HTN (hypertension) Asthma Testicular cancer Family History Family History Father Clogged artery (heart) Mother Cardiac disease Surgical History Surgical History Status post total hip replacement, 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) History of total left hip arthroplasty (01/31/23) Hx of unilateral orchiectomy Hx of excision of mass H/O colonoscopy (~06/27/23) History of cholecystectomy History of back surgery History of right knee surgery History of left knee surgery History of intestinal surgery Social History Social History Household Members: None Housing: House Are you a primary pharmacy customer care specialist to a significant other at home: No Do you presently have visiting nurse or other home services: No Alcohol intake: current Alcohol intake frequency: does not drink Alcohol type: beer Patient Tobacco Use Status: Never used Tobacco Use of substances other than those prescribed or required for medical reasons: No Substance Use Type: Marijuana Have you been hit, kicked, punched, or otherwise hurt by someone within the past year? If so, by whom?: No Are you DNR?: No Advance Directives: No Advance Directives Information Provided: Yes Advance Directives Date on File: 02/03/23 Poor oral hygiene: No service: No Current occupational status: retired Cognitive needs: No Hearing needs: Yes (b/l hearing aids ) Vision needs: Yes (rx glasses) Meds Allergies Allergy/AdvReac Type Severity Reaction Status Date / Time adhesive tape (ADHESIVE TAPE) Allergy Intermediate RASH Verified 08/27/24 16:19 cashew nut (CASHEW NUT) Allergy Intermediate SWELLING Verified 08/27/24 16:19 sulfamethoxazole (From Allergy Intermediate Rash Verified 08/27/24 16:19 Bactrim) trimethoprim (From Bactrim) Allergy Intermediate Rash Verified 08/27/24 16:19 PERM HAIR DYE Allergy Severe severe rash Uncoded 08/27/24 16:19 Home Medications ?Medication ?Instructions ?Recorded ?Confirmed ?Last Taken ?Type cholecalciferol (vitamin D3) 25 25 mcg PO DAILY 04/30/20 12/03/24 Unknown History mcg (1,000 unit) capsule tamsulosin 0.4 mg capsule 0.4 mg PO BID 04/30/20 12/03/24 01/31/23 History methenamine hippurate 1 gram tablet 1 g PO BID 08/18/22 12/03/24 01/31/23 History multivitamin 1 tab PO DAILY 08/18/22 12/05/24 12/05/24 History hydrocortisone 1 % lotion 1 appl topical DAILY PRN Itchy 01/02/24 12/03/24 Unknown History Scalp primidone 50 mg tablet 50 mg PO TID 02/08/24 12/05/24 12/05/24 History propranolol 120 mg capsule,24 120 mg PO Q24H 02/08/24 12/03/24 Unknown History hr,extended release alprazolam 1 mg tablet 1 mg PO ONCE 03/27/24 12/03/24 Unknown History dextroamphetamine-amphetamine 15 15 mg PO BID 05/22/24 12/03/24 Unknown History mg tablet (Adderall) duloxetine 60 mg capsule,delayed 60 mg PO QAM 08/20/24 12/05/24 12/05/24 History release Exam Airway Mallampati Class: III TM Dist: <=3cm Neck ROM: Limited Heart: rrr Lungs: cta Assessment and Plan Assessment Anesthesia Assessment: Anesthesia Plan Discussed and Chart Reviewed Final Anesthetic Review NPO: Yes ASA Class: III Final Preanesthetic Review: No Changes in Pt Med Stat, Meds/Allgs Chart Reviewed, Consent Obtained/Reviewed and Anes Risks/Benef Reviewed Procedure Risk: Intermediate Anesthetic Plan Anesthetic Plan: GA and Agree w/ Assess. and Plan Disposition: Standard PACU
--- NOTE | 2024-12-05 08:01 | W.PM.OPN ---
Operative Note Operative Note Date of Service: 12/05/24 Narrative: Operative Note Narrative: Preop diagnosis: 1. Right Cubital tunnel syndrome 2. Right carpal tunnel syndrome Postop diagnosis: Same Procedure: 1. Right Cubital Tunnel Release 2. Right carpal tunnel release Surgeon: Margarita Adames MD Agriculture Professor: None Anesthesia: General Anesthesia Findings: Thickening and fibrosis about the ulnar nerve at the cubital tunnel, with enlargement of the nerve proximal to an area of constriction at the distal aspect of the cubital tunnel. Implants: none Tourniquet time: 23 minutes EBL: 5.0 ml Specimen: none Drains: None Complications: None Disposition: Brought to the recovery room in stable condition Plan: Follow-up in 10-14 days for wound check, and suture removal Indications: The patient is a 79 years old with right cubital tunnel syndrome and right carpal tunnel syndrome . The risks and benefits of operative treatment, including but not limited to risk of damage to blood vessels, nerves, tendons, infection, recurrence, persistent pain or numbness, incomplete resolution of preoperative symptoms, or need for further surgery were discussed with the patient and they wished to proceed with surgery. Procedure: Once consent was obtained patient was brought back to the operating suite and placed in the operating table in a supine position. Perioperative antibiotics and anesthesia was administered by the anesthesia team. The limb was prepped and draped in a standard surgical fashion, and a sterile tourniquet applied to the proximal aspect of the right upper extremity. The limb was elevated exsanguinated with Esmarch bandage and the tourniquet inflated to 250 mm of mercury for a total tourniquet time of 23 minutes. Once assured that we had a good block, a 2.0 cm longitudinal incision was made centered over the right carpal tunnel. The incision was made through the skin to the subcutaneous tissues using a #15 blade. Dissection was made down to the level of the transverse carpal ligament with care being taken to protect the palmar cutaneous nerve. Once the transverse carpal ligament was clearly visualized, a longitudinal incision was made in the transverse carpal ligament 1st using a #15 blade, then using tenotomy scissors under direct visualization. Care was taken to look for and protect the motor branch of the median nerve when seen in this area. Once satisfied with our carpal tunnel release the wound was irrigated with normal saline. A 6 cm gently curved but longitudinally oriented incision was made centered over the cubital tunnel of the right upper extremity. Incision was made through the skin to the subcutaneous tissues using a # 15 Blade. I then dissected down to the level of the medial epicondyle and the cubital tunnel using tenotomy scissors. Care was taken to protect the medial antebrachial cutaneous nerve. The ulnar nerve was identified just posterior to the medial intermuscular septum. The ulnar nerve was released in a proximal to distal direction using tenotomy in iris scissors while directly visualizing and protecting the ulnar nerve. Thickening and fibrosis was appreciated about the ulnar nerve as it passed through the cubital tunnel. The ulnar nerve was assessed as I passed the elbow through full flexion and extension and was found to remain stable within its groove. At this point the tourniquet was deflated and hemostasis obtained with a brief period of local pressure and bipolar electrocautery. The wound was copiously irrigated with normal saline. The subcutaneous layer was closed with 4-0 Vicryl suture, and the skin edges were reapproximated with 5-0 nylon suture. The wound was infiltrated with some 0.25% plain Marcaine for postop pain control and sterile dressings were applied. The patient appears to have tolerated the procedure well and with no complications. All digits were well vascularized at the conclusion of the case.
[2024-12-05 11:59] VITALS: BP 134/71; PULSE 58; RESP 18; TEMP 37; O2SAT 99; BMI 26.4
[2024-12-05] MEDS: Lactated Ringers 1,000 ML 100 ML IVCONT (12:05)
--- NOTE | 2024-12-05 12:52 | MHC.SHP ---
Pre-Procedural Eval Section A - 24 Hr Update-Section A only Date of Service: 12/05/24 The patient is an INPATIENT: No Changes since office visit: No Cold of Flu in the past 2 weeks, No New Medical Problems, No Changes in Medication and No Patient answered all questions The patient has been examined within 24 hours of the surgical procedure. The History & Physical has been completed within 30 days and I have reviewed it.: Yes Section B - Complete if H&P > 30 days Chief Complaint: carpal tunnel,lesion of ulnar nerve Allergies: Allergies Allergy/AdvReac Type Severity Reaction Status Date / Time adhesive tape (ADHESIVE TAPE) Allergy Intermediate RASH Verified 08/27/24 16:19 cashew nut (CASHEW NUT) Allergy Intermediate SWELLING Verified 08/27/24 16:19 sulfamethoxazole (From Allergy Intermediate Rash Verified 08/27/24 16:19 Bactrim) trimethoprim (From Bactrim) Allergy Intermediate Rash Verified 08/27/24 16:19 PERM HAIR DYE Allergy Severe severe rash Uncoded 08/27/24 16:19 Plan I have reviewed the history and physical and performed a pertinent physical examination on my patient. No changes have occurred unless specified. Time Spent With Patient Time: Total time managing care of this patient today ____ minutes.
[2024-12-05 15:08] VITALS: BP 148/66; PULSE 58; RESP 16; TEMP 36.7; O2SAT 95
[2024-12-05 15:10] VITALS: BP 142/66; PULSE 58; RESP 16; O2SAT 95
[2024-12-05 15:15] VITALS: BP 136/60; PULSE 60; RESP 16; O2SAT 97
[2024-12-05 15:20] VITALS: BP 138/58; PULSE 60; RESP 16; O2SAT 95
== END 2024-12-05 16:28 | disposition home or self-care (01) ==
PROVIDERS: PCP Internal Medicine; Visit Provider Orthopaedic Surgery
PROC: (CPT 64718; principal; 2024-12-05 12:50)
PROC: (CPT 64721; 2024-12-05 12:50)
DX: G56.01 Carpal tunnel syndrome, right upper limb (principal); G56.21 Lesion of ulnar nerve, right upper limb; M19.031 Primary osteoarthritis, right wrist; M18.11 Unilateral primary osteoarthritis of first carpometacarpal joint, right hand; I10 Essential (primary) hypertension; G40.909 Epilepsy, unspecified, not intractable, without status epilepticus; G25.0 Essential tremor; G24.01 Drug induced subacute dyskinesia; E03.9 Hypothyroidism, unspecified; H91.90 Unspecified hearing loss, unspecified ear; J45.909 Unspecified asthma, uncomplicated; F32.9 Major depressive disorder, single episode, unspecified; F41.9 Anxiety disorder, unspecified; C62.90 Malignant neoplasm of unspecified testis, unspecified whether descended or undescended; Z79.899 Other long term (current) drug therapy; L23.1 Allergic contact dermatitis due to adhesives; Z88.2 Allergy status to sulfonamides; Z91.018 Allergy to other foods; Z91.048 Other nonmedicinal substance allergy status
CPT/HCPCS: 64721; 64718; J0131; J0690; J1100; J2003; J2004; J2405; J2704; J3010

== ENCOUNTER → 2024-12-05 11:23 | Outpatient (BNV) | payer MEDICARE, SELFPAY | PROVIDERS: PCP Internal Medicine; Visit Provider Orthopaedic Surgery | DX: G56.11 Other lesions of median nerve, right upper limb (principal); G56.21 Lesion of ulnar nerve, right upper limb | CPT/HCPCS: 64718; 64721 ==

== ENCOUNTER → 2024-12-17 10:57 | Outpatient (REF) | payer MEDICARE, SELFPAY ==
--- NOTE | 2024-12-17 11:00 | CA_ITS ---
Transthoracic Echocardiogram Patient (Last, First, Middle): Joel Stout L Gender: Male Date of : 1945 Age: 79 Procedure Date: 12/17/2024 Procedure Type: Transthoracic Echocardiogram Location: OP Height: 167.64 cm Weight: 73.94 kg BSA: 1.83 m2 Heart Rate: 68 bpm BP: 140 / 73 mmHg Photoengraving Proofer: SB Referring MD: Lakhwinder De Souza MD Kiln Hand: Trent Nicholas MD Symptoms: R06.00 - Dyspnea, unspecified Study Quality: Adequate ECG Rhythm: Sinus Conclusions: - 1. Normal LV ejection fraction of 65-70% 2. Moderately dilated right ventricle with preserved contractility and mildly dilated right atrium 3. Mild aortic regurgitation 4. Normal RV systolic pressure 5. Mildly dilated ascending aorta at 3.8 cm 6. No gross pericardial effusion Findings Left Ventricle Normal left ventricular size, thickness, and systolic function. The visually estimated ejection fraction is between 65-70%. Spectral Doppler is indicative of a normal filling pattern. Right Ventricle Moderately increased right ventricular cavity size. There is normal right ventricular systolic function. Atria The left atrium is normal in size. Interatrial shunt cannot be excluded. The right atrium is moderately dilated. Aortic Valve Normal aortic valve structure and function. There is no aortic valve stenosis. There is mild aortic valve regurgitation. Mitral Valve Normal mitral valve structure and function. There is trace mitral valve regurgitation. There is no mitral valve stenosis. Pulmonic Valve The pulmonic valve is likely normal. There is trace pulmonic valve regurgitation. Tricuspid Valve Normal tricuspid valve structure. There is mild tricuspid valve regurgitation. The right ventricular systolic pressure is normal. The right ventricular systolic pressure is 30 mmHg. Normal right atrial pressure. There is no evidence of pulmonary hypertension. Great Vessels The pulmonary artery was not well visualized. There is mild dilatation of the ascending aorta measuring 3.80 cm. Venous The inferior vena cava is normal in size and collapses greater than 50% with inspiration. Pericardium/Pleural There is no evidence of pericardial effusion. Prior Study Comparison Changes noted compared to prior study dated: 04/01/2020. right-sided chambers enlarged on this study Measurements 2D Linear Measurements IVSd: 0.88 0.6-0.9/0.6-1.0 cm LVIDd: 4.39 3.9-5.3/4.2-5.9 cm LVIDd Index: 2.40 2.4-3.2/2.2-3.1 cm/m2 LVIDs: 2.89 2.0-3.6 cm LVPWd: 0.67 0.7-1.1 cm LA Diam: 3.50 2.7-3.8/3.0-4.0 cm LAIDs Index: 1.91 1.5-2.3 cm/m2 LV Mass: 130.86 67-162/88-224 g LV Mass Index: 71.51 43-95/49-115 g/m2 LVOT Diam: 2.30 3.0+(-)1.3 cm 2D Systolic Function EF 4C: 63.40 >55% EF 2C: 70.50 >55% EF BiP: 67.20 >55% Mitral Valve MV Pk E: 0.81 MV PK A: 0.58 MV Decel Time: 200.00 E/A: 1.40 E'Lateral: 10.80 E'Medial: 8.16 E/E' Med: 9.90 E/E' Lat: 7.50 PHT: 59.00 MVA PHT: 3.73 Decel Oldham: 4.02 Aortic Valve AoV Pk Koby: 1.38 AoV Pk Grad: 8.00 IRVING: 3.47 LVOT LVOT Pk Koby: 1.18 LVOT Mn Koby: 0.80 LVOT VTI: 0.26 LVOT Pk Grad: 6.00 LVOT Mn Grad: 3.00 LVOT Diam: 2.30 LVOT Area: 4.15 Diastolic Function MV Pk E: 0.81 MV Pk A: 0.58 E/A: 1.40 E'Medial: 8.16 E/E' Med: 9.90 E' Laterial: 10.80 E/E' Lat: 7.50 Right Ventricle TAPSE (mm): 24.40 TVS' Koby: 14.60 Tricuspid Valve TR Pk Koby: 2.59 TR Pk Grad: 27.00 RA Press: 3.00 RVSP: 30.00 Great Vessels Aorta Sinus of Valsalva: 3.40 2.0-3.5 cm Ao Asc: 3.80 2.1-3.4 cm Ao Arch: 2.50 Pulmonary Veins Pulm Vein S/D 1.00 Pulmonary Valve PV Pk Koby: 0.88 Peak PV Grad: 3.00 Updated in Other Vendor System with Status of Final Trent Nicholas MD electronically signed on 12/17/2024 5:09:02 PM with status of Final
--- OUTSIDE RECORDS SUMMARY | 2024-12-17 13:40 | XMS_ITS | Continuity of Care Document ---
Author Organization [facility] [address] [facility] [address] [place] [address] Phone [phone] Care Team Providers Care Military Pay Clerk Name Role Phone Mike Jolley M.D. Care Team Information Recei sudhir [phone] Problems Active Problems Provider Date Hypogonadism Lino [...] Indications Order ing Provider Date Propranolol HCL [id number] Caps ER 24HR 4 x per week Lino Liao M.D. 07/12/2022 Testosterone Pvjlrflgx712pp/ml Solution Inject 200MG Intramuscularly Every 2 Weeks 2ml E29.1 Libby Lopez M.D. Voytntacmp9us Tablets Take 1 Tablet By Mouth 4 Times A Day as Needed Unknown Amphetamine-Dextroam rlpgzzvrf12al Tablets Take 1 Tablet By Mouth 3 Times A Day as Needed Unknown Escitalopram Odfivyv64fs Tablets Take 1 Tablet By Mouth Every Day In The Morning Unknown Diclofenac Wjwfxr86qb Tablets DR Take 1 Tablet By Mouth Twice A Day as Needed Mike Jolley M.D. Axigqcskun68zq Capsules DR Take 1 Capsule By Mouth Every Day For 90 Days Mike Jolley M.D. Atorvastatin Wlcogjv94po Tablets Take 1 Tablet By Mouth Every Day Mike Jolley M.D. Amlodipine Hgesvwag4sd Tablets Take 1 Tablet By Mouth Every Day Lakhwinder De Souza MD Levothyroxine Kqtgar789kig Tablets Take 1 Tablet By Mouth Every Day Mike Jolley M.D. Ukasqglgd83sf Tablets Take 1 Tablet By Mouth Two [...] Testosterone 549 ng/dL 264-916 1 Testosterone 01/10/2023 [facility] Testosterone 298 ng/dL (280-800 ) Testosterone 07/12/2022 [facility] Testosterone 560 ng/dL (280-800 ) 2 Complete Abc With Diff 07/12/2022 [facility] [id number] Duplicate order <SEE NOTE> 3 WBC 8.1 [...] ) Lymph # 1.0 K/MM3 (0.8-3.1 ) [place]# 1.1 K/MM3 (0.4-1.3 ) Eo # 0.3 [...] ) Lymph # 0.9 K/MM3 (0.8-3.1 ) [place]# 0.7 K/MM3 (0.4-1.3 ) Eo # 0.1 [...] ) Lymph # 1.0 K/MM3 (0.8-3.1 ) [place]# 0.8 K/MM3 (0.4-1.3 ) Eo # 0.2 [...] and 40 years old. Venecia et.al. JCEM 2017,102;1894-6354. PMID: [id number]. 2 Duplicate order canc elled via interface [...]
--- OUTSIDE RECORDS SUMMARY | 2024-12-17 13:40 | XMS_ITS | Clinical Summary ---
Author Organization [facility] Address [address] [facility] [address] [place] [address] Phone Care Team Providers Care Vocational Counselor Name Role Phone Pcp, Unknown Primary Care [...] Active Active Problems No known active problems Social History Tobacco Use Types Packs/Day Years [...] is your housing situation today? I have jesussamantha renteria 08/12/2024 How many times have you [...] have reliable internet access at home? Ye hansel 08/12/2024 Do you have a device (e.g., [...] this topic Medical Devices Not on file Insurance MEDICARE PART A & B [employer] MEDEX SUPPLEMENT MEDICARE PART A & B [employer] MEDEX SUPPLEMENT [employer] MEDEX SUPPLEMENT MEDICARE PART A & B BLUE [employer]OSS MEDEX SUPPLEMENT MEDICARE PART A & B [employer] CROSS MEDEX SUPPLEMENT MEDICARE PART A & B [employer] CROSS MEDEX SUPPLEMENT Care Teams Vocational Counselor Relationship Specialty Start Date End Date Pcp, Unknown PCP - General 06/19/24 Additional Source Comments The information contained in this document represents components of the legal health record. It is not the complete legal health record.[facility]
== END ==
LOC: HO.CARD 10:57
PROVIDERS: PCP Internal Medicine; Visit Provider Internal Medicine Cardiovascular Disease
DX: R06.00 Dyspnea, unspecified (principal)
CPT/HCPCS: 93306

== ENCOUNTER → 2024-12-17 11:00 | Outpatient (BNV) | payer MEDICARE, SELFPAY | PROVIDERS: PCP Internal Medicine; Visit Provider Internal Medicine Cardiovascular Disease | DX: I35.1 Nonrheumatic aortic (valve) insufficiency (principal); I51.7 Cardiomegaly | CPT/HCPCS: 93306 ==

== ENCOUNTER 2024-12-18 11:27 | Outpatient (AMB) | payer MEDICARE, SELFPAY ==
--- NOTE | 2024-12-18 11:34 | MHC.OFFVIS ---
Vital Signs 12/18/24 11:50 Height 5 ft 6.5 in Weight 165 lb BMI 26.2 Intake Visit Reasons: PO RT cubital/CTR 12/05/24 AR Intake Note: Joel is a 79 year old left hand dominant male who presents today for a Post-operative visit status post Right Cubital Tunnel & Carpal Tunnel Release performed by Dr. Adames on 12/05/24. Patient reports he is doing well. He denies numbness, tingling, or finger locking. Patient is taking pain medications for a back surgery he had a [facility] within the last week. Sutures removed and steri strips applied. Allergies adhesive tape (ADHESIVE TAPE) Allergy (Intermediate, Verified 12/18/24 11:49) RASH cashew nut (CASHEW NUT) Allergy (Intermediate, Verified 12/18/24 11:49) SWELLING sulfamethoxazole (From Bactrim) Allergy (Intermediate, Verified 12/18/24 11:49) Rash trimethoprim (From Bactrim) Allergy (Intermediate, Verified 12/18/24 11:49) Rash PERM HAIR DYE Allergy (Severe, Uncoded 12/18/24 11:49) severe rash HPI HPI PO RT cubital/CTR 12/05/24 AR: Details: Joel is a 79 year old left hand dominant male who presents today for a Post-operative visit status post Right Cubital Tunnel & Carpal Tunnel Release performed by Dr. Adames on 12/05/24. Patient reports he is doing well. He denies numbness, tingling, or finger locking. Patient is taking pain medications for a back surgery he had a [facility] within the last week. Sutures removed and steri strips applied. 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) History of total left hip arthroplasty (01/31/23) Hx of unilateral orchiectomy Hx of excision of mass H/O colonoscopy (~06/27/23) History of cholecystectomy History of back surgery History of right knee surgery History of left knee surgery History of intestinal surgery Family History Father Clogged artery (heart) Mother Cardiac disease Social History Household Members: None Housing: House Are you a primary rn intensive care unit to a significant other at home: No Do you presently have visiting nurse or other home services: No Alcohol intake: current Alcohol intake frequency: does not drink Alcohol type: beer Patient Tobacco Use Status: Never used Tobacco Substance Use Type: Marijuana Advance Directives Date on File: 02/03/23 service: No Current occupational status: retired Cognitive needs: No Hearing needs: Yes (b/l hearing aids ) Vision needs: Yes (rx glasses) Review of Systems Const All systems reviewed & are unremarkable except as noted in HPI and below Physical Exam Extrem Other: Patient is alert, oriented, and in no acute distress. Neuro: Normal sensation of the tips of all digits of the right hand at this time Vascular: Cap refill brisk Pain: No tenderness to palpation about the incision sites on volar right wrist or medial right elbow No pain with range of motion of the right hand or elbow ROM: Patient is able to make a closed fist and extend all digits of the right hand fully Patient is able to flex, extend, pronate, supinate the right elbow fully and without difficulty Skin: Well approximated and well healing incision sites noted on medial right elbow and volar right wrist No lacerations or abrasions. General: No ecchymosis, erythema, or evidence of infection. Psych: Appears grossly normal Affect normal Attitude cooperative Assessment & Plan Assessment & Plan (1) Cubital tunnel syndrome on right: Code(s): G56.21 - Lesion of ulnar nerve, right upper limb Category: Medical (2) Carpal tunnel syndrome of right wrist: Code(s): G56.01 - Carpal tunnel syndrome, right upper limb Category: Medical Plan 1. Status post right cubital tunnel release 2. Status post right carpal tunnel release With good symptom resolution postoperatively DOS 12/05/2024 Patient appears to be recovering well postoperatively Patient is educated about the typical recovery course No acute follow-up indicated, as patient appears to be recovering quite well 2 lb weight limit reinforced, however the patient states that he does not need to start playing his trumpet again, I have educated him that if he can not abide by a 2 lb weight limit, he needs to be as careful as possible to not overdo it with the right hand Patient understands this is amenable to this plan Follow-up as needed with any acute concerns Coding Level of Care Code Global (88054) Diagnoses Cubital tunnel syndrome on right G56.21 Carpal tunnel syndrome of right wrist G56.01
[2024-12-18 11:50] VITALS: BMI 26.2
--- OUTSIDE RECORDS SUMMARY | 2024-12-18 15:47 | XMS_ITS | Clinical Summary ---
Author Organization [address] Address [address] [place] [address] Phone Care Team Providers Care Sign Manufacturer Name Role Phone Norman Lopez MD Primary Care Provider [phone] Social History Tobacco Use Types Packs/Day Years [...] to complete this topic Insurance MEDICARE [facility] Care Teams Sign Manufacturer Relationship Specialty Start Date End Date Norman Lopez MD PCP - General Internal Medicine 05/06/24
--- OUTSIDE RECORDS SUMMARY | 2024-12-18 15:47 | XMS_ITS | Encounter Summary ---
Author Organization [facility] Address [address] [place] [address] Care Team Providers Care Tray Drier Operator Name Role Phone Norman Lopez MD Primary Care Provider [phone]- [phone] Encounter Details Date Type Department Care Team (Late st Contact Info) Description 05/06/2024 Lab Requisition [facility] - Main Lab [address] [place] [address] Ortega Mccoy Testicular hypofunction Social [...] Resul t [facility] [address] [place] [address], documented in this encounter Visit Diagnoses Diagnosis Testicular hypofunction Other testicular hypofunction documented in this encounter Care Teams Tray Drier Operator Relationship Specialty Start Date End Date Norman Lopez MD PCP - General Internal Medicine 05/06/24 documented as of this encounter
--- OUTSIDE RECORDS SUMMARY | 2024-12-18 15:47 | XMS_ITS | Clinical Summary ---
Author Organization [facility] Address [address] [facility] [address] [place] [address] Phone Care Team Providers Care Manufacturing Analyst Name Role Phone Pcp, Unknown Primary Care [...] file Insurance MEDICARE PART A & B [employer] MEDEX SUPPLEMENT MEDICARE PART A & B [employer] MEDEX SUPPLEMENT [employer] MEDEX SUPPLEMENT MEDICARE PART A & B [employer]UE [employer]OSS MEDEX SUPPLEMENT MEDICARE PART A & B [employer] CROSS MEDEX SUPPLEMENT MEDICARE PART A & B [employer] CROSS MEDEX SUPPLEMENT Care Teams Manufacturing Analyst Relationship Specialty Start Date End Date Pcp, Unknown PCP - General 06/19/24 Additional Source Comments The information contained in this document represents components of the legal health record. It is not the complete legal health record.[facility]
--- OUTSIDE RECORDS SUMMARY | 2024-12-18 15:47 | XMS_ITS | Encounter Summary ---
Author Organization [facility] Address [address] [place] [address] Care Team Providers Care Bicycle Fitter Name Role Phone Norman Lopez MD Primary Care Provider [phone]- [phone] Encounter Details Date Type Department Care Team (Late st Contact Info) Description 05/23/2024 Lab Requisition [facility] - Main Lab [address] [facility] [place] [address] Patricio Mijares MD [address] [place], [place] [id number] Elevated prostate specific antigen (PSA) Social History [...] (05/21/2024) Final Diagnosis A. Prostate, Left Middle [place] Biopsy: - Benign prostatic tissue. B. Prostate, Left Lateral [place] Biopsy: - Benign prostatic tissue. C. Prostate, Left Middle Middle Biopsy: - Benign prostatic tissue. D. Prostate, Left Lateral Middle Biopsy: - Benign prostatic tissue. E. Prostate, Left Middle Base Biopsy: - Benign prostatic tissue. F. Prostate, Left Lateral Base Biopsy: - Benign prostatic tissue. G. Prostate, Left Anterior Peripheral Zone Biopsy: - Benign prostatic tissue. H. Prostate, Right Middle [place] Biopsy: - Benign prostatic tissue. I. Prostate, Right Lateral [place] Biopsy: - Benign prostatic tissue. J. Prostate, Right Middle Middle Biopsy: - Benign prostatic tissue. K. Prostate, Right Lateral Middle Biopsy: - Benign prostatic tissue. L. Prostate, Right Middle Base Biopsy: - Benign prostatic tissue. M. Prostate, Right Lateral Base Biopsy: - Benign prostatic tissue. 05/24/2024 1:05 PM EDT [facility] Clinical Information Elevated PSA = 8.5 (04/26/24) [id number] 05/24/2024 1:05 PM EDT [facility] Gross Description A. Prostate, Left Middle [place]ron[place] Biopsy: Received, properly labeled, are two H and E stained slides and two unstained slides. B. Prostate, Left Lateral [place]ron[place] Biopsy: Received, properly labeled, are two H [...] two unstained slides. H. Prostate, Right Middle [place] Biopsy: Received, properly labeled, are two H and E stained slides and two unstained slides. I. Prostate, Right Lateral [place]ron[place] Biopsy: Received, properly labeled, are two H [...] paraffin embedded. Technical pathology services provided by [facility] at [address] [place] [address] [address], [place] [address] (CLIA #[id number]/S nilson Shi MD, Soaker Soda Worker) 05/24/2024 1:05 PM EDT [facility] [...] nal Result [facility] [address] [place] [address], documented in this encounter Visit Diagnoses Diagnosis Elevated prostate specific antigen (PSA) documented in this encounter Care Teams Bicycle Fitter Relationship Specialty Start Date End Date Norman Lopez MD PCP - General Internal Medicine 05/06/24 documented as of this encounter
== END 2024-12-18 12:17 | disposition home or self-care (01) ==
LOC: HO.HOS 11:27
DX: G56.21 Lesion of ulnar nerve, right upper limb (principal); G56.01 Carpal tunnel syndrome, right upper limb
CPT/HCPCS: 99024

== ENCOUNTER → 2024-12-18 11:27 | Outpatient (BNVA) | payer MEDICARE, SELFPAY | DX: Z47.89 Encounter for other orthopedic aftercare (principal); G56.21 Lesion of ulnar nerve, right upper limb; G56.01 Carpal tunnel syndrome, right upper limb; Z98.890 Other specified postprocedural states | CPT/HCPCS: 99212 ==

== ENCOUNTER 2024-12-25 15:50 | Outpatient (REF) | payer MEDICARE, SELFPAY ==
[2024-12-25 16:09] LABS: Hematocrit 51.1 % (42.0-52.0); Hemoglobin 16.5 g/dl (14.0-18.0)
[2024-12-25 16:51] LABS: Prostate Specific Antigen 11.43 ng/mL (<0.05-4.0)
--- OUTSIDE RECORDS SUMMARY | 2024-12-25 19:59 | XMS_ITS | Encounter Summary ---
Author Organization [facility] Address [address] [place] [address] Care Team Providers Care Water Well Driller Name Role Phone Norman Lopez MD Primary Care Provider [phone]- [phone] Encounter Details Date Type Department Care Team (Late st Contact Info) Description 05/06/[address] [facility] - Main Lab [address] [place] [address] Ortega Mccoy Testicular hypofunction Social [...] LAB CHEMISTRY METHOD 05/06/2024 3:36 PM EDT [facility] Blood Venous blood specimen / Unknown 05/06/2024 10:59 AM EDT 05/06/2024 2:36 PM EDT us Ortega Mccoy LAB BLOOD ORDERABLES Final Resul t [facility] [address] [place] [address], documented in this encounter Visit Diagnoses Diagnosis Testicular hypofunction Other testicular hypofunction documented in this encounter Care Teams Water Well Driller Relationship Specialty Start Date End Date Norman Lopez MD PCP - General Internal Medicine 05/06/24 documented as of this encounter
--- OUTSIDE RECORDS SUMMARY | 2024-12-25 19:59 | XMS_ITS | Clinical Summary ---
Author Organization [address] Address [address] [place] [address] Phone Care Team Providers Care Deliverer Outside Name Role Phone Norman Lopez MD Primary Care Provider [phone]- [phone] Social History Tobacco Use Types Packs/Day Years [...] age to complete this topic Insurance MEDICARE [facility] Care Teams Deliverer Outside Relationship Specialty Start Date End Date Norman Lopez MD PCP - General Internal Medicine 05/06/24
--- OUTSIDE RECORDS SUMMARY | 2024-12-25 19:59 | XMS_ITS | Continuity of Care Document ---
Author Organization [facility] [address] [facility] [address] [place] [address] Phone [phone] Care Team Providers Care Tire Fabric Inspector Name Role Phone Mike Jolley M.D. Care Team Information Recei sudhir [phone] Problems Active Problems Provider Date Hypogonadism Lino [...] Indications Order ing Provider Date Propranolol HCL BS202ws Caps ER 24HR 4 x per week Lino Liao M.D. 07/12/2022 Testosterone Jwetrhkbx659rt/ml Solution Inject 200MG Intramuscularly Every 2 Weeks 2ml E29.1 Libby Lopez M.D. Tvykdyqtya7jt Tablets Take 1 Tablet By Mouth 4 Times A Day as Needed Unknown Amphetamine-Dextroam ltasqhzww81dd Tablets Take 1 Tablet By Mouth 3 Times A Day as Needed Unknown Escitalopram Kqxjxpv74oi Tablets Take 1 Tablet By Mouth Every Day In The Morning Unknown Diclofenac Dlvlww50dx Tablets DR Take 1 Tablet By Mouth Twice A Day as Needed Mike Jolley M.D. Bbwrkwzhov90hk Capsules DR Take 1 Capsule By Mouth Every Day For 90 Days Mike Jolley M.D. Atorvastatin Pmneesc78lr Tablets Take 1 Tablet By Mouth Every Day Mike Jolley M.D. Amlodipine Ujunzzxj7vd Tablets Take 1 Tablet By Mouth Every Day Lakhwinder De Souza MD Levothyroxine Rzjtua820wef Tablets Take 1 Tablet By Mouth Every Day Mike Jolley M.D. Ifsuqbuav54kt Tablets Take 1 Tablet By Mouth Two [...] Testosterone 549 ng/dL 264-916 1 Testosterone 01/10/2023 [facility] Testosterone 298 ng/dL (280-800 ) Testosterone 07/12/2022 [facility] Testosterone 560 ng/dL (280-800 ) 2 Complete Abc With Diff 07/12/2022 [facility] [id number] Duplicate order <SEE NOTE> 3 WBC 8.1 [...] ) Lymph # 1.0 K/MM3 (0.8-3.1 ) [place]# 1.1 K/MM3 (0.4-1.3 ) Eo # 0.3 K/MM3 (0.0-0.4 ) Baso # 0.0 K/MM3 (0.0-0.1 ) Abs. Imm Gran 0.0 K/MM3 Neut 70.1 % (44-76) Lymph 12.3 % Low (15-43) Monocyte 13.2 % High (4.5-10. 5) Eo 3.5 % (0-6) Baso 0.4 % (0-2) Imm Gran 0.5 % Complete Abc With Diff 01/27/2022 [facility] WBC 4.8 K/MM3 (4.0-11. [...] ) Lymph # 0.9 K/MM3 (0.8-3.1 ) [place]# 0.7 K/MM3 (0.4-1.3 ) Eo # 0.1 K/MM3 (0.0-0.4 ) Baso # 0.0 K/MM3 (0.0-0.1 ) Abs. Imm Gran 0.0 K/MM3 Neut 62.8 % (44-76) Lymph 19.8 % (15-43) Monocyte 13.7 % High (4.5-10. 5) Eo 2.9 % (0-6) Baso 0.6 % (0-2) Imm Gran 0.2 % Testosterone 01/27/2022 [facility] Testosterone 141 ng/dL Low (280-800 ) Complete Abc With Diff 01/11/2022 [facility] WBC 5.0 K/MM3 (4.0-11. [...] ) Lymph # 1.0 K/MM3 (0.8-3.1 ) [place]# 0.8 K/MM3 (0.4-1.3 ) Eo # 0.2 K/MM3 (0.0-0.4 ) Baso # 0.0 K/MM3 (0.0-0.1 ) Abs. Imm Gran 0.0 K/MM3 Neut 59.0 % (44-76) Lymph 20.4 % (15-43) Monocyte 16.8 % High (4.5-10. 5) Eo 3.2 % (0-6) Baso 0.4 % (0-2) Imm Gran 0.2 % Testosterone 01/11/2022 [facility] Testosterone 345 ng/dL (280-800 ) 1 Adult male reference interval is based on a population of healthy nonobese males (BMI <30) between 19 and 39 years old. Venecia et.al. JCEM 2017,102;3655-9902. PMID: [id number]. 2 Duplicate order canc elled via interface [...]
--- OUTSIDE RECORDS SUMMARY | 2024-12-25 19:59 | XMS_ITS | Encounter Summary ---
Author Organization [facility] Address [address] [place] [address] Care Team Providers Care Public Relations Name Role Phone Norman Lopez MD Primary Care Provider +1- [phone] Encounter Details Date Type Department Care Team (Late st Contact Info) Description 05/23/2024 Lab Requisition [facility] - Main Lab [address] [facility] [place] [employer] [place] [address] Patricio Mijares MD [address] [place], [place] [id number] Elevated prostate specific antigen (PSA) Social History [...] (05/21/2024) Final Diagnosis A. Prostate, Left Middle [place] Biopsy: - Benign prostatic tissue. B. Prostate, Left Lateral [place] Biopsy: - Benign prostatic tissue. C. Prostate, Left Middle Middle Biopsy: - Benign prostatic tissue. D. Prostate, Left Lateral Middle Biopsy: - Benign prostatic tissue. E. Prostate, Left Middle Base Biopsy: - Benign prostatic tissue. F. Prostate, Left Lateral Base Biopsy: - Benign prostatic tissue. G. Prostate, Left Anterior Peripheral Zone Biopsy: - Benign prostatic tissue. H. Prostate, Right [place] Biopsy: - Benign prostatic tissue. I. Prostate, Right Lateral [place] Biopsy: - Benign prostatic tissue. J. Prostate, Right Middle Middle Biopsy: - Benign prostatic tissue. K. Prostate, Right Lateral Middle Biopsy: - Benign prostatic tissue. L. Prostate, Right Middle Base Biopsy: - Benign prostatic tissue. M. Prostate, Right Lateral Base Biopsy: - Benign prostatic tissue. 05/24/2024 1:[address] [facility] Clinical Information Elevated PSA = 8.5 (04/26/24) [id number] 05/24/2024 1:05 PM EDT [facility] Gross Description A. Prostate, Left Middle [place] Biopsy: Received, properly labeled, are two H and E stained slides and two unstained slides. B. Prostate, Left Lateral [place] Biopsy: Received, properly labeled, are two H [...] two unstained slides. H. Prostate, Right [place] Biopsy: Received, properly labeled, are two H and E stained slides and two unstained slides. I. Prostate, Right Lateral [place] Biopsy: Received, properly labeled, are two H [...] paraffin embedded. Technical pathology services provided by [facility] at [address] [place] [address] [address], [place] [address] (CLIA #[id number]/S nilson Shi MD, Nursery Attendant) 05/24/2024 1:[address] [facility] [...] nal Result [facility] [address] [place] [address], documented in this encounter Visit Diagnoses Diagnosis Elevated prostate specific antigen (PSA) documented in this encounter Care Teams Public Relations Relationship Specialty Start Date End Date Norman Lopez MD PCP - General Internal Medicine 05/06/24 documented as of this encounter
[2025-01-03 17:59] LABS: Testosterone, Free 97.3 pg/mL (30.0-135.0)
== END 2024-12-25 15:51 | disposition home or self-care (01) ==
LOC: HO.LAB 15:50
PROVIDERS: PCP Internal Medicine; Visit Provider Internal Medicine Endocrinology, Diabetes & Metabolism
DX: E23.7 Disorder of pituitary gland, unspecified (principal); Z12.5 Encounter for screening for malignant neoplasm of prostate
CPT/HCPCS: 36415; 84153; 84402; 84403; 85014; 85018

== ENCOUNTER 2025-01-06 09:20 | Outpatient (AMB) | payer MEDICARE, SELFPAY ==
--- NOTE | 2025-01-06 09:30 | MHC.OFFVIS ---
Vital Signs 01/06/25 09:34 Height 5 ft 6.5 in Weight 166 lb 3.657 oz BMI 26.4 BP 130/60 Blood Pressure Location Lt brachial Position Sitting Pulse 76 Pulse Source Pulse Oximeter Intake Visit Reasons: 3 mth f/up Intake Note: 3 mth f/up Integrated Circuit Fabricator Required: No Accompanied by: Spouse Allergies adhesive tape (ADHESIVE TAPE) Allergy (Intermediate, Verified 12/18/24 11:49) RASH cashew nut (CASHEW NUT) Allergy (Intermediate, Verified 12/18/24 11:49) SWELLING sulfamethoxazole (From Bactrim) Allergy (Intermediate, Verified 12/18/24 11:49) Rash trimethoprim (From Bactrim) Allergy (Intermediate, Verified 12/18/24 11:49) Rash PERM HAIR DYE Allergy (Severe, Uncoded 12/18/24 11:49) severe rash Medication List - Last Reconciled 01/06/25 by Lakhwinder De Souza MD alprazolam 1 mg PO ONCE amlodipine 10 mg (2 x 5 mg) PO DAILY 90 days atorvastatin 80 mg PO BEDTIME cholecalciferol (vitamin D3) 25 mcg PO DAILY cyclobenzaprine 10 mg PO BEDTIME dextroamphetamine-amphetamine 15 mg (Adderall) 15 mg PO BID duloxetine 60 mg PO QAM hydrocodone-acetaminophen 5-325 mg 1 tab PO Q4-6H PRN hydrocortisone 1% 1 appl topical DAILY PRN lamotrigine 50 mg (2 x 25 mg) PO BID 30 days levothyroxine 125 mcg PO QAM methenamine hippurate 1 g PO BID multivitamin 1 tab PO DAILY omeprazole 40 mg PO DAILY@0630 primidone 50 mg PO TID propranolol ER 120 mg PO Q24H tamsulosin 0.4 mg PO BID testosterone cypionate 100 mg (0.5 mL) IM QWEEK tramadol 50 mg PO BEDTIME HPI Comments Details: 79-year-old gentleman with dyspnea on exertion who is here for follow-up. He was taken for cardiac catheterization for his progressive dyspnea which did not show any significant coronary disease. His filling pressures at rest were normal. His blood pressure was elevated and he was started on amlodipine. His BP is better. He was diagnosed with exercise induced asthma. He underwent back surgery and is recovering from that. He tried to do some exercise but had some dyspnea and fatigue. I have explained to him that this is quite normal after surgery. 6/24/24: he is here for f/u. He underwent hip surgery in 02/15/2023. He is saying that he has recovered from that was breathing has been bad. He previously was diagnosed with exercise-induced asthma and was on some inhalers which he has not used for few months. He is getting shortness of breath with activities. No other significant complaints. 12/27/2023: He is here for follow-up. He wants to undergo right hip surgery. He is in a lot of pain. Blood pressure is elevated. He is on amlodipine 5 mg and propranolol every other day. He is here for perioperative cardiovascular risk assessment. 03/27/2024: He is here for follow-up. He recently had an event where he started having shaking of his body and then he fell to the ground. He does not recall falling and losing consciousness. He said his friends were around him who noticed that he was confused. He subsequently saw Neurology and had further workup he was told that there was some abnormality noticed on an EEG and he needs to repeat it today. He is quite overwhelmed and stress. He also has significant shaking of his head and has been using primidone for long time. He has we will refer to movement disorder specialist Dr. Collazo. Blood pressure is good. 10/14/2024: He is here for follow-up. He had significant tremors in his head and recently underwent Botox treatment at [facility]. He is saying that he was given low-dose Botox which has helped him and he will be getting higher dose next time. He has significant lower back pain which limits his mobility. He has not been able to exercise for years and complaints of dyspnea on exertion. He is saying that when he walks he gets back pain and he gets short of breath. Blood pressure control is reasonable currently. He is saying the blood pressure was elevated in his amlodipine was increased to 10 mg daily by the primary care physician. 01/06/2025: He is here for follow-up. He received Botox for his head tremors and this has improved them somewhat. He is due to get a dose today. He also has low back pain which is affecting his mobility. He is denying any significant shortness of breath but does get out of breath when he is trying to do physical activities. He had echocardiography performed which is showing moderate RV dilation. I reviewed the echocardiogram and RV appears to be at least gwhs-vr-ksogswugjg dilated which is a new finding compared to 2020. He has no history of COPD. He has PA pressures are normal and there is no significant tricuspid valve regurgitation on the echocardiogram. He also does not have significant diastolic dysfunction/heart failure to explain the RV dysfunction. 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) History of total left hip arthroplasty (01/31/23) Hx of unilateral orchiectomy Hx of excision of mass H/O colonoscopy (~06/27/23) History of cholecystectomy History of back surgery History of right knee surgery History of left knee surgery History of intestinal surgery Family History Father Clogged artery (heart) Mother Cardiac disease Social History Household Members: None Housing: House Are you a primary manager critical care to a significant other at home: No Do you presently have visiting nurse or other home services: No Alcohol intake: current Alcohol intake frequency: does not drink Alcohol type: beer Patient Tobacco Use Status: Never used Tobacco Substance Use Type: Marijuana Advance Directives Date on File: 02/03/23 service: No Current occupational status: retired Cognitive needs: No Hearing needs: Yes (b/l hearing aids ) Vision needs: Yes (rx glasses) Review of Systems Const Denies chills, Denies fatigue, Denies fever(s), Denies frequent falls, Denies weakness, Denies weight gain and Denies weight loss ENT Denies dizziness Card Denies chest pain, Denies leg edema, Denies lightheadedness, Denies palpitations, Denies dyspnea and Denies dyspnea on exertion Resp Denies cough, Denies dyspnea and Denies dyspnea on exertion GI Denies hematochezia Musc Denies abnormal gait, Denies muscle weakness, Denies numbness, Denies radiating pain into limb and Denies tingling Neuro Denies abnormal gait, Denies dizziness, Denies frequent falls, Denies numbness, Denies tingling and Denies weakness Endo Denies fatigue and Denies palpitations Physical Exam Vital Signs: Last Vital Signs Pulse 76 01/06/25 09:34 BP 130/60 01/06/25 09:34 BMI result Body Mass Index 26.4 GENERAL APPEARANCE: in no acute distress. NECK/THYROID: no carotid bruit, no jugular venous distention. SKIN: no suspicious lesions, warm and dry. HEART: no murmurs, regular rate and rhythm, S1, S2 normal. LUNGS: clear to auscultation bilaterally. ABDOMEN: normal, bowel sounds present, soft, nontender, nondistended. EXTREMITIES: no clubbing, cyanosis, or edema. PERIPHERAL PULSES: equal. NEUROLOGIC: nonfocal, alert and oriented. Shaking of his head. 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 He has background history of exercise-induced asthma leading to dyspnea. He has back issues which has slowed him down and he gets dyspnea due to that to. Blood pressure is reasonably controlled currently. His echocardiography has shown moderate RV dilatation. The RV function is normal. He does not have any signs of RV failure. I discussed with him that if he develops any edema and he should reach out to us. He does not have pulmonary hypertension by echocardiography. His tricuspid valve appears to be mildly regurgitant at max. He does not have sleep apnea. I have advised him that we repeat the echocardiography in few months. In the meantime he will focus on back issues and tremors and hopefully he makes progress with their management. If he developed any symptoms of heart failure he will reach out to us. Clinically not in heart failure today. Thank you for allowing me to participate in the care of your patient. Please feel free to contact me if you have any questions. 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
[2025-01-06 09:34] VITALS: BP 130/60; PULSE 76; BMI 26.4
--- OUTSIDE RECORDS SUMMARY | 2025-01-06 10:13 | XMS_ITS | Encounter Summary ---
Author Organization [facility] Address [address] [place] [address] Care Team Providers Care Food Truck Caterer Name Role Phone Norman Lopez MD Primary Care Provider [phone]- [phone] Encounter Details Date Type Department Care Team (Late st Contact Info) Description 05/23/2024 Lab Requisition [facility] - Main Lab [address] [facility] [place] [address] Patricio Mijares MD [address] [place], [place] [phone] Elevated prostate specific antigen (PSA) Social History [...] (05/21/2024) Final Diagnosis A. Prostate, Left Middle [place] Biopsy: - Benign prostatic tissue. B. Prostate, Left Lateral [place] Biopsy: - Benign prostatic tissue. C. Prostate, Left Middle Middle Biopsy: - Benign prostatic tissue. D. Prostate, Left Lateral Middle Biopsy: - Benign prostatic tissue. E. Prostate, Left Middle Base Biopsy: - Benign prostatic tissue. F. Prostate, Left Lateral Base Biopsy: - Benign prostatic tissue. G. Prostate, Left Anterior Peripheral Zone Biopsy: - Benign prostatic tissue. H. Prostate, Right Middle [place] Biopsy: - Benign prostatic tissue. I. Prostate, Right Lateral [place] Biopsy: - Benign prostatic tissue. J. Prostate, Right Middle Middle Biopsy: - Benign prostatic tissue. K. Prostate, Right Lateral Middle Biopsy: - Benign prostatic tissue. L. Prostate, Right Middle Base Biopsy: - Benign prostatic tissue. M. Prostate, Right Lateral Base Biopsy: - Benign prostatic tissue. 05/24/2024 1:05 PM EDT [facility] Clinical Information Elevated PSA = 8.5 (04/26/24) [id number] 05/24/2024 1:05 PM EDT [facility] Gross Description A. Prostate, Left Middle [place] Biopsy: Received, properly labeled, are two H and E stained slides and two unstained slides. B. Prostate, Left Lateral [place] Biopsy: Received, properly labeled, are two H [...] two unstained slides. H. Prostate, Right Middle [place] Biopsy: Received, properly labeled, are two H and E stained slides and two unstained slides. I. Prostate, Right Lateral [place] Biopsy: Received, properly labeled, are two H [...] unstained slides. /al 05/24/2024 1:05 PM EDT [facility] Disclaimer Unless otherwise specified, all tissue is 10% NB formalin fixed and paraffin embedded. Technical pathology services provided by [facility] at [address] [place] [address] [address], [place] [address] (CLIA #[id number]/S nilson Shi MD, Legislative Director) 05/24/2024 1:05 PM EDT [facility] Tissue Prostate / Unknown 05/21/20242024 [...] MD LAB PATHOLOGY ORDERABLES Fi nal Result [facility] [address] [place] [address], documented in this encounter Visit Diagnoses Diagnosis Elevated prostate specific antigen (PSA) documented in this encounter Care Teams Food Truck Caterer Relationship Specialty Start Date End Date Norman Lopez MD PCP - General Internal Medicine 05/06/24 documented as of this encounter
--- OUTSIDE RECORDS SUMMARY | 2025-01-06 10:13 | XMS_ITS | Clinical Summary ---
Author Organization [address] Address [address] [place] [address] Phone Care Team Providers Care Fisher Lampara Net Name Role Phone Norman Lopez MD Primary Care Provider +1- [phone] Social History Tobacco Use Types Packs/Day Years [...] age to complete this topic Insurance MEDICARE [facility] Care Teams Fisher Lampara Net Relationship Specialty Start Date End Date Norman Lopez MD PCP - General Internal Medicine 05/06/24
--- OUTSIDE RECORDS SUMMARY | 2025-01-06 10:13 | XMS_ITS | Clinical Summary ---
Author Organization [facility] Address [address] [facility] [address] [place] [phone] Phone Care Team Providers Care Mechanical Manager Name Role Phone Pcp, Unknown Primary Care [...] file Insurance MEDICARE PART A & B [employer] MEDEX SUPPLEMENT * Guarantor: Joel Stout Account Type Relation to Patient Date of Phone Billing Address Personal/Family Self 1945 [address] [facility] [place] [place] [address] MEDICARE PART A & B [employer] MEDEX SUPPLEMENT [employer] MED[employer] SUPPLEMENT MEDICARE PART A & B [employer] MEDEX SUPPLEMENT MEDICARE PART A & B [employer] CROSS MEDEX SUPPLEMENT MEDICARE PART A & B [employer] CROSS MEDEX SUPPLEMENT Care Teams Mechanical Manager Relationship Specialty Start Date End Date Pcp, Unknown PCP - General 06/19/24 Additional Source Comments The information contained in this document represents components of the legal health record. It is not the complete legal health record.[facility]
--- OUTSIDE RECORDS SUMMARY | 2025-01-06 10:13 | XMS_ITS | Continuity of Care Document ---
Author Organization [facility] [address] [facility] [address] [place] [address] Phone [phone] Care Team Providers Care Public Policy Professor Name Role Phone Mike Jolley M.D. Care Team Information Recei sudhir [phone] Problems Active Problems Provider Date Hypogonadism Lino [...] Indications Order ing Provider Date Propranolol HCL [id number] Caps ER 24HR 4 x per week Lino Liao M.D. 07/12/2022 Testosterone Ofqovwkad074jm/ml Solution Inject 200MG Intramuscularly Every 2 Weeks 2ml E29.1 Libby Lopez M.D. Mulxstaiiq7es Tablets Take 1 Tablet By Mouth 4 Times A Day as Needed Unknown Amphetamine-Dextroam dniavlocb38iq Tablets Take 1 Tablet By Mouth 3 Times A Day as Needed Unknown Escitalopram Hurxgye72ox Tablets Take 1 Tablet By Mouth Every Day In The Morning Unknown Diclofenac Crbhpl45jj Tablets DR Take 1 Tablet By Mouth Twice A Day as Needed Mike Jolley M.D. Rocqiizkiv65ia Capsules DR Take 1 Capsule By Mouth Every Day For 90 Days Mike Jolley M.D. Atorvastatin Uevslef40tj Tablets Take 1 Tablet By Mouth Every Day Mike Jolley M.D. Amlodipine Iuzqtvaz3hu Tablets Take 1 Tablet By Mouth Every Day Lakhwinder De Souza MD Levothyroxine Lixhpy754kax Tablets Take 1 Tablet By Mouth Every Day Mike Jolley M.D. Qddpqqehg09cj Tablets Take 1 Tablet By Mouth Two [...] Testosterone 549 ng/dL 264-916 1 Testosterone 01/10/2023 [facility] Testosterone 298 ng/dL (280-800 ) Testosterone 07/12/2022 [facility] Testosterone 560 ng/dL (280-800 ) 2 Complete Abc With Diff 07/12/2022 [facility] [id number] Duplicate order <SEE NOTE> 3 WBC 8.1 [...] ) Lymph # 1.0 K/MM3 (0.8-3.1 ) [place]# 1.1 K/MM3 (0.4-1.3 ) Eo # 0.3 K/MM3 (0.0-0.4 ) Baso # 0.0 K/MM3 (0.0-0.1 ) Abs. Imm Gran 0.0 K/MM3 Neut 70.1 % (44-76) Lymph 12.3 % Low (15-43) Monocyte 13.2 % High (4.5-10. 5) Eo 3.5 % (0-6) Baso 0.4 % (0-2) Imm Gran 0.5 % Complete Abc With Diff 01/27/2022 [facility] WBC 4.8 K/MM3 (4.0-11. 0) [...] ) Lymph # 0.9 K/MM3 (0.8-3.1 ) [place]# 0.7 K/MM3 (0.4-1.3 ) Eo # 0.1 K/MM3 (0.0-0.4 ) Baso # 0.0 K/MM3 (0.0-0.1 ) Abs. Imm Gran 0.0 K/MM3 Neut 62.8 % (44-76) Lymph 19.8 % (15-43) Monocyte 13.7 % High (4.5-10. 5) Eo 2.9 % (0-6) Baso 0.6 % (0-2) Imm Gran 0.2 % Testosterone 01/27/2022 [facility] Testosterone 141 ng/dL Low (280-800 ) Complete Abc With Diff 01/11/2022 [facility] WBC 5.0 K/MM3 (4.0-11. 0) [...] ) Lymph # 1.0 K/MM3 (0.8-3.1 ) [place]# 0.8 K/MM3 (0.4-1.3 ) Eo # 0.2 K/MM3 (0.0-0.4 ) Baso # 0.0 K/MM3 (0.0-0.1 ) Abs. Imm Gran 0.0 K/MM3 Neut 59.0 % (44-76) Lymph 20.4 % (15-43) Monocyte 16.8 % High (4.5-10. 5) Eo 3.2 % (0-6) Baso 0.4 % (0-2) Imm Gran 0.2 % Testosterone 01/11/2022 [facility] Testosterone 345 ng/dL (280-800 ) 1 Adult male reference interval is based on a population of healthy nonobese males (BMI <30) between 19 and 39 years old. Venecia et.al. JCEM 2017,102;0729-0155. PMID: [id number]. 2 Duplicate order canc elled via interface [...]
--- OUTSIDE RECORDS SUMMARY | 2025-01-06 10:13 | XMS_ITS | Encounter Summary ---
Author Organization [facility] Address [address] [place] [address] Care Team Providers Care Oil Lease Broker Name Role Phone Norman Lopez MD Primary Care Provider [phone]- [phone] Encounter Details Date Type Department Care Team (Late st Contact Info) Description 05/06/2024 Lab Requisition [facility] - Main Lab [address] [place] [address] Ortega Mccoy Testicular hypofunction Social [...] LAB CHEMISTRY METHOD 05/06/2024 3:36 PM EDT [facility] Blood Venous blood specimen / Unknown 05/06/2024 10:59 AM EDT 05/06/2024 2:36 PM EDT us Ortega Mccoy LAB BLOOD ORDERABLES Final Resul t [facility] [address] [place] [address], documented in this encounter Visit Diagnoses Diagnosis Testicular hypofunction Other testicular hypofunction documented in this encounter Care Teams Oil Lease Broker Relationship Specialty Start Date End Date Norman Lopez MD PCP - General Internal Medicine 05/06/24 documented as of this encounter
== END 2025-01-06 10:06 | disposition home or self-care (01) ==
LOC: HO.HCS 09:21
PROVIDERS: PCP Internal Medicine; Visit Provider Internal Medicine Cardiovascular Disease
DX: Q20.8 Other congenital malformations of cardiac chambers and connections (principal); I10 Essential (primary) hypertension
CPT/HCPCS: 99214

== ENCOUNTER → 2025-01-06 09:20 | Outpatient (BNVA) | payer MEDICARE, SELFPAY | PROVIDERS: PCP Internal Medicine; Visit Provider Internal Medicine Cardiovascular Disease | DX: I10 Essential (primary) hypertension (principal); Q20.8 Other congenital malformations of cardiac chambers and connections | CPT/HCPCS: 99212 ==

== ENCOUNTER 2025-01-07 10:59 | Outpatient (AMB) | payer MEDICARE, SELFPAY ==
[2025-01-07 10:46] VITALS: BP 156/70; PULSE 72; RESP 16; TEMP 36.4; O2SAT 97; BMI 26.2
--- NOTE | 2025-01-07 10:46 | A.OFFPC_ITS ---
Vital Signs 01/07/25 10:46 Height 5 ft 6.5 in Weight 165 lb BMI 26.2 BP 156/70 H Blood Pressure Location Lt brachial Position Sitting Respiration 16 Pulse 72 Pulse Source Pulse Oximeter Temp 97.6 F Temp Source Temporal Artery Scan Pulse Oximetry (%) 97 Oxygen Delivery Method Room Air Intake Visit Reasons: follow up Rubber Roller Grinder Required: No Accompanied by: Spouse Allergies adhesive tape (ADHESIVE TAPE) Allergy (Intermediate, Verified 01/07/25 10:47) RASH cashew nut (CASHEW NUT) Allergy (Intermediate, Verified 01/07/25 10:47) SWELLING sulfamethoxazole (From Bactrim) Allergy (Intermediate, Verified 01/07/25 10:47) Rash trimethoprim (From Bactrim) Allergy (Intermediate, Verified 01/07/25 10:47) Rash PERM HAIR DYE Allergy (Severe, Uncoded 01/07/25 10:47) severe rash Tobacco use date assessed: 08/20/24 Dental Screening Dental Screen Date: 08/20/24 [facility] Medical History Insomnia Abnormal pituitary luteinizing hormone (LH) Abnormal FSH level Memory change Essential tremor Seizure disorder Joint pain Lesion of pituitary gland Abnormal involuntary movements Anxiety BPH loc w urin obs/LUTS History of recurrent UTIs Incomplete bladder emptying ADD (attention deficit disorder) Enlarged prostate Hyperkalemia Tardive dyskinesia Hard of hearing Hypothyroid Depression Polycythemia Osteoarthritis HTN (hypertension) Asthma Testicular cancer Surgical History Status post total hip replacement, 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) History of total left hip arthroplasty (01/31/23) Hx of unilateral orchiectomy Hx of excision of mass H/O colonoscopy (~06/27/23) History of cholecystectomy History of back surgery History of right knee surgery History of left knee surgery History of intestinal surgery Family History Father Clogged artery (heart) Mother Cardiac disease Social History (Updated 01/07/25 @ 11:08 by NAE Navas) Household Members: None Housing: House Are you a primary healthcare sales representative to a significant other at home: No Do you presently have visiting nurse or other home services: No Alcohol intake: current Alcohol intake frequency: does not drink Alcohol type: beer Patient Tobacco Use Status: Never used Tobacco Advance Directives Date on File: 02/03/23 service: No Current occupational status: retired Cognitive needs: No Hearing needs: Yes (b/l hearing aids ) Vision needs: Yes (rx glasses) Questionnaire PHQ-9 Over the last 2 weeks, how often have you been bothered by any of the following problems? 1. Little interest or pleasure in doing things: nearly every day 2. Feeling down, depressed, or hopeless: nearly every day 3. Trouble falling or staying asleep, or sleeping too much: nearly every day 4. Feeling tired or having little energy: nearly every day 5. Poor appetite or overeating: not at all 6. Feeling bad about yourself - or that you are a failure or have let yourself or your family down: more than half the days 7. Trouble concentrating on things, such as reading the newspaper or watching television: more than half the days 8. Moving or speaking so slowly that other people could have noticed. Or the opposite - being so fidgety or restless that you have been moving around a lot more than usual: nearly every day 9. Thoughts that you would be better off or of hurting yourself in some way: not at all Total score: 19 Depression Screening Interpretation: Positive Depression Screening Done: Yes 18939 - PHQ-9 Billing: Yes Source: Developed by Drs. Mike Cortes, Louise Hanks, Jayson Luis and colleagues, with an educational muriel from [employer]. Thrive Questionnaire Date Thrive assessed: 08/20/24 I am a: Patient What is your living situation today?: I have a steady place to live Within the past 12 months, did the food you bought not last and you didn't have the money to get more?: Never true Within the past 12 months, did you worry whether your food would run out before you got money to buy more?: Never true Do you have trouble paying for medicines?: No Do you have trouble getting transportation to medical appointments?: No Do you have trouble paying your heating and electricity bill?: No Do you have trouble taking care of your child, family member or friend?: No Do you have trouble with day-to-day activities such as bathing, preparing meals, shopping, managing finances, etc.?: No Are you currently unemployed and looking for a job?: No Are you interested in more education?: No THRIVE Score: 0 AUDIT C Alcohol Use Questionnaire (AUDIT-C) 1. How often do you have a drink containing alcohol?: 4 or more times a week 2. How many drinks containing alcohol do you have on a typical day when you are drinking?: 1 or 2 3. How often do you have six or more drinks on one occasion?: Never Total Score: 4 Score Reviewed/Action Taken: No LISSY-7 AMB Questionnaire LISSY-7 Date LISSY - 7 assessed: 08/20/24 Feeling nervous, anxious, or on edge: 3 = Nearly every day Not being able to stop or control worryin = More than half the days Worrying too much about different things: 3 = Nearly every day Trouble relaxin = More than half the days Being so restless that it is hard to sit still: 1 = Several days Becoming easily annoyed or irritable: 2 = More than half the days Feeling afraid as if something awful might happen: 2 = More than half the days Total LISSY-7 score (0-4 normal; 5-9 mild; 10-14 moderate; 15-21 severe): 15 Source: Developed by Drs. Mike Cortes, Louise Hanks, Jayson Luis and colleagues, with an educational muriel from [employer]. LISSY-7 Assessment Billing LISSY-7 Assessment Tool: LISSY-7 Assessment 65753 Physical exam (Primary Care) Vital Signs: Last Vital Signs Temp 97.6 F 01/07/25 10:46 Pulse 72 01/07/25 10:46 Resp 16 01/07/25 10:46 BP 156/70 H 01/07/25 10:46 Pulse Ox 97 01/07/25 10:46 Oxygen Delivery Method Room Air 01/07/25 10:46 BMI result Body Mass Index 26.2 Tobacco/Smoking Status: Tobacco use Status Tobacco use date assessed 08/20/24 01/07/25 10:48 Patient Tobacco Use Status Never used Tobacco 01/07/25 11:08 PHQ-9: PHQ-9 Score PHQ-9: Total score 19 01/07/25 11:18 Depression Screening Interpretation: Positive Thrive Assessment: Date of Thrive Assessment Date Thrive assessed 08/20/24 01/07/25 10:48 Coding Level of Care Code Est Pt Level 4 (57309) Complex EM visit Add On G2211 Diagnoses Essential hypertension I10 Hypertension type: essential hypertension Additional Codes LISSY-7 Assessment Billing - LISSY-7 Assessment Tool: LISSY-7 Assessment 45311 ([id number]) PHQ-9 - 06687 - PHQ-9 Billing: Yes ([id number]) Assessment & Plan Assessment & Plan (1) Hypertension: Code(s): I10 - Essential (primary) hypertension Category: Medical Qualifiers: Hypertension type: essential hypertension Qualified Code(s): I10 - Essential (primary) hypertension Plan: History of Present Illness - The patient is a 79-year-old male presenting for management of multiple chronic conditions. - He has a history of severe chronic lower back pain, for which he has undergone back fusion and bilateral hip replacements. - A back surgeon has stated his condition is musculoskeletal and not surgical. - He received two diagnostic nerve block injections which provided temporary, complete pain relief. - Following the diagnostic blocks, he underwent a nerve ablation procedure four weeks ago, which has not worked, providing only about 10-15% improvement. - His pain is severe, causing him to be hunched over and unable to stand up straight or walk even a short distance. - The patient also has a history of severe essential tremors of the head, for which he is being treated by a neurologist with Botox injections in his neck every three months. - The neurologist recently prescribed Flexeril for shoulder pain, which he believes is radiculopathy related to his back issues. - Within the last four weeks, the patient has undergone surgery for a pinched ulnar nerve and carpal tunnel syndrome. - Regarding his hypertension, his blood pressure was 130/60 mmHg at his furniture servicer's appointment yesterday but was elevated in the 150s/70s range later that day and on home measurements, which he notes fluctuates with his pain level. - He is taking amlodipine 5 mg twice daily and propranolol 120 mg once daily. - An EKG performed yesterday by his furniture servicer showed a slightly thickened right heart wall. - He reports a long-standing issue of rhinorrhea when he tips his head forward to eat, noting that allergy medicines are no longer effective. - The patient expresses significant frustration with his ongoing pain, multiple doctor appointments, and lack of effective treatment. Social History - The patient reports an inability to exercise or walk more than a very short distance due to severe pain. - He reports having been very strong and an active jogger in the past, but has experienced significant muscle loss over the last year. - The patient expresses significant frustration and emotional distress related to his chronic pain and frequent medical appointments. Review of Systems - Constitutional: Reports constant, terrible fatigue, requiring naps of 2-3 hours in the afternoon. - Musculoskeletal: Reports severe, chronic lower back pain that prevents him from standing straight and limits ambulation. - Neurological: Reports severe essential tremors of the head. - Pain: Reports horrible pain with walking, shoulder pain, and being in pain during the visit. - ENT: Reports rhinorrhea for many years that occurs when tipping his head forward to eat. Physical Exam General: Cooperative and healthy appearing Nutritional Appearance: Well nourished Orientation/consciousness: Patient oriented x3 Limitations: No limitations Head: Normal to inspection General: Appearance normal, both eyes and all related structures Neck: Normal visual inspection Chest: Normal palpation of entire chest wall Respiratory: N ormal respiratory effort Neurology: Patient oriented x3, experiencing severe essential tremors, receiving Botox injections for management. Results - EKG (from prior day): Revealed a slightly thickened right heart wall, with the left side of the heart noted as perfect. Plan - Chronic Lower Back Pain: The patient has a follow-up appointment with his bobbin painter on Monday to discuss the failure of the recent nerve ablation. - Will follow the recommendation to return to his back surgeon to re-discuss his case and other potential options, as the referral to pain management was not successful. - Hypertension: Continue current regimen of amlodipine 5 mg BID and propranolol 120 mg daily. - The patient is advised to monitor his blood pressure at home three times per week. - He will continue to follow up with his furniture servicer, Dr. Damon. - Essential Tremor: Continue treatment with Botox injections every three months with his neurologist. - He will try Flexeril as prescribed by his neurologist for shoulder pain. - Rhinitis: Recommended to try [id number] Flonase (steroid nasal spray) for rhinorrhea. - Preventative Care: Administer influenza vaccine in the office today. - Recent Ulnar Nerve/Carpal Tunnel Surgery: Continue activity restrictions as directed, including limitations on lifting. Discussion Notes I acknowledged the patient's significant frustration with his chronic, severe back pain and the lack of efficacy from the recent nerve ablation procedure, which has provided only 10-15% relief. We discussed his upcoming follow-up with the pain management clinic, and I recommended he also return to his back surgeon for re-evaluation, given that the referral for the nerve procedure was unsuccessful. We reviewed his blood pressure management, noting the fluctuations which may be related to his pain levels. I advised him to continue his current medications, monitor his blood pressure at home three times per week, and maintain follow-up with his furniture servicer. For his long-standing issue of a runny nose when eating, I advised a trial of Flonase nasal spray, which is a steroid-based spray. We discussed that he had not yet received his flu shot due to recent procedures, and after he consented, I arranged for it to be administered during today's visit. Patient Instructions - For your runny nose, try using Flonase nasal spray, which is a steroid-based spray. - Please check your blood pressure at home three times a week. - Continue taking your current medications for blood pressure (Amlodipine and Propranolol) as directed. - Go to your follow-up appointment with the pain clinic on Monday to discuss your back pain. - It is recommended that you schedule a visit with your back surgeon to discuss other treatment options for your pain. - Continue to limit lifting with your right arm as instructed after your recent surgery. - You will receive your flu shot in the office today. Orders: Orders Influenza [id number] Immunization Today Z23 - Encounter for immunization Medications: New Fluarix [id number] (PF) (flu vac ts (6mos up)-PF) 0.5 mL IM ONCE 0.5 mL 0RF NS Z23 - Encounter for immunization
--- OUTSIDE RECORDS SUMMARY | 2025-01-07 13:08 | XMS_ITS | Encounter Summary ---
Author Organization [facility] Address [address] [place] [address] Care Team Providers Care Electrical Engineering Manager Name Role Phone Norman Lopez MD Primary Care Provider [phone]- [phone] Encounter Details Date Type Department Care Team (Late st Contact Info) Description 05/06/2024 Lab Requisition [facility] - Main Lab [address] [place] [address] Ortega Mccoy Testicular hypofunction Social [...] LAB BLOOD ORDERABLES Final Resul t [facility] [address] [place] [address], documented in this encounter Visit Diagnoses Diagnosis Testicular hypofunction Other testicular hypofunction documented in this encounter Care Teams Electrical Engineering Manager Relationship Specialty Start Date End Date Norman Lopez MD PCP - General Internal Medicine 05/06/24 documented as of this encounter
--- OUTSIDE RECORDS SUMMARY | 2025-01-07 13:08 | XMS_ITS | Encounter Summary ---
Author Organization [facility] Address [address] [place] [address] Care Team Providers Care Supervisor Clam Bed Name Role Phone Norman Lopez MD Primary Care Provider [phone]- [phone] Encounter Details Date Type Department Care Team (Late st Contact Info) Description 05/23/2024 Lab Requisition [facility] - Main Lab [address] [facility] [place] [address] Patricio Mijares MD [address] [place], [place] [id number] Elevated prostate specific antigen (PSA) Social History [...] (05/21/2024) Final Diagnosis A. Prostate, Left Middle [place] Biopsy: - Benign prostatic tissue. B. Prostate, Left Lateral [place] Biopsy: - Benign prostatic tissue. C. Prostate, Left Middle Middle Biopsy: - Benign prostatic tissue. D. Prostate, Left Lateral Middle Biopsy: - Benign prostatic tissue. E. Prostate, Left Middle Base Biopsy: - Benign prostatic tissue. F. Prostate, Left Lateral Base Biopsy: - Benign prostatic tissue. G. Prostate, Left Anterior Peripheral Zone Biopsy: - Benign prostatic tissue. H. Prostate, Right Middle [place] Biopsy: - Benign prostatic tissue. I. Prostate, Right Lateral [place] Biopsy: - Benign prostatic tissue. J. Prostate, Right Middle Middle Biopsy: - Benign prostatic tissue. K. Prostate, Right Lateral Middle Biopsy: - Benign prostatic tissue. L. Prostate, Right Middle Base Biopsy: - Benign prostatic tissue. M. Prostate, Right Lateral Base Biopsy: - Benign prostatic tissue. 05/24/2024 1:05 PM EDT [facility] Clinical Information Elevated PSA = 8.5 (04/26/24) [id number] 05/24/2024 1:05 PM EDT [facility] Gross Description A. Prostate, Left Middle [place] Biopsy: Received, properly labeled, are two H and E stained slides and two unstained slides. B. Prostate, Left Lateral [place] Biopsy: Received, properly labeled, are two H [...] two unstained slides. H. Prostate, Right Middle [place] Biopsy: Received, properly labeled, are two H and E stained slides and two unstained slides. I. Prostate, Right Lateral [place] Biopsy: Received, properly labeled, are two H [...] unstained slides. /al 05/24/2024 1:05 PM EDT [facility] Disclaimer Unless otherwise specified, all tissue is 10% NB formalin fixed and paraffin embedded. Technical pathology services provided by [facility] at [address] [place] [address] [address], [place] [address] (CLIA #[id number]/S nilson Shi MD, Fur Ironer) 05/24/2024 1:05 PM EDT [facility] Tissue Prostate / Unknown [...] MD LAB PATHOLOGY ORDERABLES Fi nal Result [facility] [address] [place] [address], documented in this encounter Visit Diagnoses Diagnosis Elevated prostate specific antigen (PSA) documented in this encounter Care Teams Supervisor Clam Bed Relationship Specialty Start Date End Date Norman Lopez MD PCP - General Internal Medicine 05/06/24 documented as of this encounter
--- OUTSIDE RECORDS SUMMARY | 2025-01-07 13:08 | XMS_ITS | Clinical Summary ---
Author Organization [facility] Address [address] [place] [address] Phone Care Team Providers Care Occupational Therapist Name Role Phone Pcp, Unknown Primary Care [...] patient's age to complete this topic IPV VACCINES Aged Out No longer eligi ble based on patient's age to complete this topic MENINGOCOCCAL VACCINES (ACWY) Aged Out No longer eligible based on patient's age to complete this topic MENINGOCOCCAL VACCINES (B) Aged Out N o longer eligible based on patient's age to complete this topic Medical Devices Not on file Insurance MEDICARE PART A & B [employer] MEDEX SUPPLEMENT MEDICARE PART A & B [employer] MEDEX SUPPLEMENT MEDICARE PART A & B [employer] [place] MEDEX SUPPLEMENT MEDICARE PART A & B [employer] MEDEX SUPPLEMENT MEDICARE PART A & B [employer] MEDEX SUPPLEMENT MEDICARE PART A & B [employer] MEDEX SUPPLEMENT Care Teams Occupational Therapist Relationship Specialty Start Date End Date Pcp, Unknown PCP - General 06/19/24 Additional Source Comments The information contained in this document represents components of the legal health record. It is not the complete legal health record.[facility]
--- OUTSIDE RECORDS SUMMARY | 2025-01-07 13:08 | XMS_ITS | Clinical Summary ---
Author Organization [address] [facility] Address [address] [place] [address] Phone Care Team Providers Care Shellacker Name Role Phone Norman Lopez MD Primary Care Provider [phone]- [phone] Social History Tobacco Use Types Packs/Day Years [...] Screening 01/26/2022 Depression Screening 02/28/2024 COVID-19 Vaccine (1 - 2024-2 6 season) 2024 Influenza Vaccine (#1) 2024 HIB [...] age to complete this topic Insurance MEDICARE [facility] Care Teams Shellacker Relationship Specialty Start Date End Date Norman Lopez MD PCP - General Internal Medicine 05/06/24
--- OUTSIDE RECORDS SUMMARY | 2025-01-07 13:08 | XMS_ITS | Continuity of Care Document ---
Author Organization [facility] [address] [place] [address] Phone [phone] Care Team Providers Care Educational Psychologist Name Role Phone Mike Jolley M.D. Care Team Information Recei sudhir [phone] Problems Active Problems Provider Date Hypogonadism Lino [...] Indications Order ing Provider Date Propranolol HCL [id number] Caps ER 24HR 4 x per week Lino Liao M.D. 07/12/2022 Testosterone Trarusxtf495px/ml Solution Inject 200MG Intramuscularly Every 2 Weeks 2ml E29.1 Libby Lopez M.D. Uztacydqvt5dd Tablets Take 1 Tablet By Mouth 4 Times A Day as Needed Unknown Amphetamine-Dextroam erergpjyb82yh Tablets Take 1 Tablet By Mouth 3 Times A Day as Needed Unknown Escitalopram Kvlnmvz37he Tablets Take 1 Tablet By Mouth Every Day In The Morning Unknown Diclofenac Xkhkgm82ot Tablets DR Take 1 Tablet By Mouth Twice A Day as Needed Mike Jolley M.D. Oebxfygfga64vm Capsules DR Take 1 Capsule By Mouth Every Day For 90 Days Mike Jolley M.D. Atorvastatin Jwvgedh89fj Tablets Take 1 Tablet By Mouth Every Day Mike Jolley M.D. Amlodipine Zthduehg7tj Tablets Take 1 Tablet By Mouth Every Day Lakhwinder De Souza MD Levothyroxine Ewahqi863auh Tablets Take 1 Tablet By Mouth Every Day Mike Jolley M.D. Tpevcsqgo82hw Tablets Take 1 Tablet By Mouth Two [...] Testosterone 549 ng/dL 264-916 1 Testosterone 01/10/2023 [facility] Testosterone 298 ng/dL (280-800 ) Testosterone 07/12/2022 [facility] Testosterone 560 ng/dL (280-800 ) 2 Complete Abc With Diff 07/12/2022 [facility] [id number] Duplicate order <SEE NOTE> 3 WBC 8.1 [...] ) Lymph # 1.0 K/MM3 (0.8-3.1 ) Brooke# 1.1 K/MM3 (0.4-1.3 ) Eo # 0.3 K/MM3 (0.0-0.4 ) Baso # 0.0 K/MM3 (0.0-0.1 ) Abs. Imm Gran 0.0 K/MM3 Neut 70.1 % (44-76) Lymph 12.3 % Low (15-43) Monocyte 13.2 % High (4.5-10. 5) Eo 3.5 % (0-6) Baso 0.4 % (0-2) Imm Gran 0.5 % Complete Abc With Diff 01/27/2022 [facility] WBC 4.8 K/MM3 (4.0-11. [...] ) Lymph # 0.9 K/MM3 (0.8-3.1 ) Brooke# 0.7 K/MM3 (0.4-1.3 ) Eo # 0.1 K/MM3 (0.0-0.4 ) Baso # 0.0 K/MM3 (0.0-0.1 ) Abs. Imm Gran 0.0 K/MM3 Neut 62.8 % (44-76) Lymph 19.8 % (15-43) Monocyte 13.7 % High (4.5-10. 5) Eo 2.9 % (0-6) Baso 0.6 % (0-2) Imm Gran 0.2 % Testosterone 01/27/2022 [facility] Testosterone 141 ng/dL Low (280-800 ) Complete Abc With Diff 01/11/2022 [facility] WBC 5.0 K/MM3 (4.0-11. [...] ) Lymph # 1.0 K/MM3 (0.8-3.1 ) Brooke# 0.8 K/MM3 (0.4-1.3 ) Eo # 0.2 K/MM3 (0.0-0.4 ) Baso # 0.0 K/MM3 (0.0-0.1 ) Abs. Imm Gran 0.0 K/MM3 Neut 59.0 % (44-76) Lymph 20.4 % (15-43) Monocyte 16.8 % High (4.5-10. 5) Eo 3.2 % (0-6) Baso 0.4 % (0-2) Imm Gran 0.2 % Testosterone 01/11/2022 [facility] Testosterone 345 ng/dL (280-800 ) 1 Adult male reference interval is based on a population of healthy nonobese males (BMI <30) between 19 and 39 years old. Venecia et.al. JCEM 2017,102;9536-7446. PMID: [id number]. 2 Duplicate order canc elled via interface [...]
== END 2025-01-07 11:43 | disposition home or self-care (01) ==
LOC: HO.HMCSH 10:59
PROVIDERS: PCP Internal Medicine; Visit Provider Internal Medicine
DX: Z23 Encounter for immunization (principal); I10 Essential (primary) hypertension

== ENCOUNTER → 2025-01-07 10:59 | Outpatient (BNVA) | payer MEDICARE, SELFPAY | PROVIDERS: PCP Internal Medicine; Visit Provider Internal Medicine | DX: I10 Essential (primary) hypertension (principal); Z23 Encounter for immunization; Z13.31 Encounter for screening for depression | CPT/HCPCS: 90471; 90656; 96127; 99212 ==

== ENCOUNTER 2025-01-08 13:17 | Outpatient (AMB) | payer MEDICARE, SELFPAY ==
--- NOTE | 2025-01-08 13:20 | A.OFFVIS_ITS ---
Vital Signs 01/08/25 13:22 Height 5 ft 6.5 in Weight 163 lb 9.328 oz BMI 26.0 BP 114/68 Blood Pressure Location Lt brachial Position Sitting Pulse 64 Pulse Source Pulse Oximeter Pulse Oximetry (%) 98 Oxygen Delivery Method Room Air Intake Visit Reasons: f/u pituitary adenoma/ hypogonadism Intake Note: Patient present today for pituitary adenoma/ hypogonadism follow up visit. Spa Host Required: No Accompanied by: Self / Same As Patient Allergies adhesive tape (ADHESIVE TAPE) Allergy (Intermediate, Verified 01/08/25 13:27) RASH cashew nut (CASHEW NUT) Allergy (Intermediate, Verified 01/08/25 13:27) SWELLING sulfamethoxazole (From Bactrim) Allergy (Intermediate, Verified 01/08/25 13:27) Rash trimethoprim (From Bactrim) Allergy (Intermediate, Verified 01/08/25 13:27) Rash PERM HAIR DYE Allergy (Severe, Uncoded 01/08/25 13:27) severe rash HPI Comments Details: This is a 79-year-old male sent to endocrinology for 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 According to an MRI report sent from the patient's PCP, the adenoma has been presence of 2015 and abuts the pre chiasmatic portion of the optic chiasm. No laboratory studies are present at the time of consultation..Saw Dr. Lino Liao - prrscribed testosterone. Saw neurosurgeon at [facility] who decided not to operate. Took testosterone IM 200 mg Q2 wks. Some issues with urine stream. Has BPH. Was cleared by Urology. Also sleep study showed the absence of sleep apnea . On L-T4 for 125 ug for hypothyroidism No sx of acromegaly . No sx of Roger's or adrenal insuffiency. His significant past medical event was testicular cancer treated successfully via right orchiectomy 28 years prior, which necessitated continuous testosterone replacement therapy. This treatment aided libido initially but has waned in effectiveness due to changes in medication regimens over the past year. 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 Urology did clear patient for testosterone use. Patient also has an appointment with Neurosurgery Here today to initiate testosterone. Sleep study showed the absence of sleep apnea Recent PSA was 11.43.Has urology appt in next few wks [facility] Medical History (Updated 01/08/25 @ 13:33 by NAE Rose) Back abrasion Insomnia Abnormal pituitary luteinizing hormone (LH) Abnormal FSH level Memory change Essential tremor Seizure disorder Joint pain Lesion of pituitary gland Abnormal involuntary movements Anxiety BPH loc w urin obs/LUTS History of recurrent UTIs Incomplete bladder emptying ADD (attention deficit disorder) Enlarged prostate Hyperkalemia Tardive dyskinesia Hard of hearing Hypothyroid Depression Polycythemia Osteoarthritis HTN (hypertension) Asthma Testicular cancer Surgical History (Updated 01/08/25 @ 13:33 by NAE Rose) H/O carpal tunnel repair Status post total hip replacement, 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) History of total left hip arthroplasty (01/31/23) Hx of unilateral orchiectomy Hx of excision of mass H/O colonoscopy (~06/27/23) History of cholecystectomy History of back surgery History of right knee surgery History of left knee surgery History of intestinal surgery Family History Father Clogged artery (heart) Mother Cardiac disease Social History Household Members: None Housing: House Are you a primary healthcare risk control consultant to a significant other at home: No Do you presently have visiting nurse or other home services: No Alcohol intake: current Alcohol intake frequency: does not drink Alcohol type: beer Patient Tobacco Use Status: Never used Tobacco Advance Directives Date on File: 02/03/23 service: No Current occupational status: retired Cognitive needs: No Hearing needs: Yes (b/l hearing aids ) Vision needs: Yes (rx glasses) Physical Exam Vital Signs: Last Vital Signs Pulse 64 01/08/25 13:22 BP 114/68 01/08/25 13:22 Pulse Ox 98 01/08/25 13:22 Oxygen Delivery Method Room Air 01/08/25 13:22 BMI result Body Mass Index 26.0 Assessment & Plan Assessment & Plan (1) Lesion of pituitary gland: Code(s): E23.7 - Disorder of pituitary gland, unspecified Category: Medical Plan: This is a 79-year-old white male with a reported history of pituitary microadenoma. 2. Testosterone replacement therapy- He had received Received Urology clearance. Is on 100 mg of testosterone IM Q weekly. The sharp rise in PSA is of concern and patient will be told to hold the testosterone until he follows up with the Urology and has Urology clearance. At this point, I am going to hold his testosterone treatment and asked that he go to follow up with the urologist and make an appointment for a 2nd opinion with Dr. Keven Silvestre I [facility] expert inandrologyand testosterone replacement Orders: Referrals Endocrinology Referral E34.9 - Endocrine disorder, unspecified Medications: Discontinued testosterone cypionate Discontinued Reason: Doctor's Order 100 mg (0.5 mL) IM QWEEK 100 mL 4RF Coding Level of Care Code Est Pt Level 3 (23793) Diagnoses Lesion of pituitary gland E23.7
[2025-01-08 13:22] VITALS: BP 114/68; PULSE 64; O2SAT 98; BMI 26.0
--- OUTSIDE RECORDS SUMMARY | 2025-01-08 16:04 | XMS_ITS | Encounter Summary ---
Author Organization [facility] Address [address] [place] [address] Care Team Providers Care Quantitative Strategy Analyst Name Role Phone Norman Lopez MD Primary Care Provider [phone]- [phone] Encounter Details Date Type Department Care Team (Late st Contact Info) Description 05/06/2024 Lab Requisition [facility] - Main Lab [address] [place] [address] Ortega Mccoy Testicular hypofunction Social [...] LAB CHEMISTRY METHOD 05/06/2024 3:36 PM EDT [facility] Blood Venous blood specimen / Unknown 05/06/2024 10:59 AM EDT 05/06/2024 2:36 PM EDT us Ortega Mccoy LAB BLOOD ORDERABLES Final Resul t [facility] [address] [place] [address], documented in this encounter Visit Diagnoses Diagnosis Testicular hypofunction Other testicular hypofunction documented in this encounter Care Teams Quantitative Strategy Analyst Relationship Specialty Start Date End Date Norman Lopez MD PCP - General Internal Medicine 05/06/24 documented as of this encounter
--- OUTSIDE RECORDS SUMMARY | 2025-01-08 16:04 | XMS_ITS | Clinical Summary ---
Author Organization [facility] Address [address] [place] [address] Phone Care Team Providers Care Rejector Name Role Phone Norman Lopez MD Primary Care Provider [phone]- [phone] Social History Tobacco Use Types Packs/Day Years [...] age to complete this topic Insurance MEDICARE [facility] Care Teams Rejector Relationship Specialty Start Date End Date Norman Lopez MD PCP - General Internal Medicine 05/06/24
--- OUTSIDE RECORDS SUMMARY | 2025-01-08 16:04 | XMS_ITS ---
Continuity of Care Document (CCD) Created on: January 08, 2025 Joel Stout External Reference #: [id number] : 1945 Sex: Male Author Organization [facility] [address] [facility] [address] [place] [address] Phone [phone] Care Team Providers Care Tour Escort Name Role Phone Mike Jolley M.D. Care Team Information Recei sudhir [phone] Problems Active Problems Provider Date Hypogonadism Lino [...] Indications Order ing Provider Date Propranolol HCL AX396ye Caps ER 24HR 4 x per week Lino Liao M.D. 07/12/2022 Testosterone Bamlirwyn222kw/ml Solution Inject 200MG Intramuscularly Every 2 Weeks 2ml E29.1 Libby Lopez M.D. Vnwcuvzpjd3hd Tablets Take 1 Tablet By Mouth 4 Times A Day as Needed Unknown Amphetamine-Dextroam yknjwbchj50vj Tablets Take 1 Tablet By Mouth 3 Times A Day as Needed Unknown Escitalopram Uejbhvg54eu Tablets Take 1 Tablet By Mouth Every Day In The Morning Unknown Diclofenac Jnpjgi18gh Tablets DR Take 1 Tablet By Mouth Twice A Day as Needed Mike Jolley M.D. Lzvqzkkjdg90qg Capsules DR Take 1 Capsule By Mouth Every Day For 90 Days Mike Jolley M.D. Atorvastatin Fnysrsi63mx Tablets Take 1 Tablet By Mouth Every Day Mike Jolley M.D. Amlodipine Swdxlhif4jo Tablets Take 1 Tablet By Mouth Every Day Lakhwinder De Souza MD Levothyroxine Ivxrkz858xfb Tablets Take 1 Tablet By Mouth Every Day Mike Jolley M.D. Xqcetdvjn31ff Tablets Take 1 Tablet By Mouth Two [...] Testosterone 549 ng/dL 264-916 1 Testosterone 01/10/2023 [facility] Testosterone 298 ng/dL (280-800 ) Testosterone 07/12/2022 [facility] Testosterone 560 ng/dL (280-800 ) 2 Complete Abc With Diff 07/12/2022 [facility] [id number] Duplicate order <SEE NOTE> 3 WBC 8.1 [...] ) Lymph # 1.0 K/MM3 (0.8-3.1 ) [place]# 1.1 K/MM3 (0.4-1.3 ) Eo # 0.3 K/MM3 (0.0-0.4 ) Baso # 0.0 K/MM3 (0.0-0.1 ) Abs. Imm Gran 0.0 K/MM3 Neut 70.1 % (44-76) Lymph 12.3 % Low (15-43) Monocyte 13.2 % High (4.5-10. 5) Eo 3.5 % (0-6) Baso 0.4 % (0-2) Imm Gran 0.5 % Complete Abc With Diff 01/27/2022 [facility] WBC 4.8 K/MM3 (4.0-11. [...] ) Lymph # 0.9 K/MM3 (0.8-3.1 ) [place]# 0.7 K/MM3 (0.4-1.3 ) Eo # 0.1 K/MM3 (0.0-0.4 ) Baso # 0.0 K/MM3 (0.0-0.1 ) Abs. Imm Gran 0.0 K/MM3 Neut 62.8 % (44-76) Lymph 19.8 % (15-43) Monocyte 13.7 % High (4.5-10. 5) Eo 2.9 % (0-6) Baso 0.6 % (0-2) Imm Gran 0.2 % Testosterone 01/27/2022 [facility] Testosterone 141 ng/dL Low (280-800 ) Complete Abc With Diff 01/11/2022 [facility] WBC 5.0 K/MM3 (4.0-11. [...] ) Lymph # 1.0 K/MM3 (0.8-3.1 ) [place]# 0.8 K/MM3 (0.4-1.3 ) Eo # 0.2 K/MM3 (0.0-0.4 ) Baso # 0.0 K/MM3 (0.0-0.1 ) Abs. Imm Gran 0.0 K/MM3 Neut 59.0 % (44-76) Lymph 20.4 % (15-43) Monocyte 16.8 % High (4.5-10. 5) Eo 3.2 % (0-6) Baso 0.4 % (0-2) Imm Gran 0.2 % Testosterone 01/11/2022 [facility] Testosterone 345 ng/dL (280-800 ) 1 Adult male reference interval is based on a population of healthy nonobese males (BMI <30) between 19 and 39 years old. Venecia et.al. JCEM 2017,102;5897-4583. PMID: [id number]. 2 Duplicate order canc elled via interface [...]
--- OUTSIDE RECORDS SUMMARY | 2025-01-08 16:04 | XMS_ITS | Clinical Summary ---
Author Organization [facility] Address [address] [facility] [address] [place] [id number] Phone Care Team Providers Care Button Riveter Name Role Phone Pcp, Unknown Primary Care [...] file Insurance MEDICARE PART A & B [employer] MEDEX SUPPLEMENT MEDICARE PART A & B [employer] MEDEX SUPPLEMENT MEDICARE PART A & B [place] [employer] MEDEX SUPPLEMENT MEDICARE PART A & B [employer] MEDEX SUPPLEMENT MEDICARE PART A & B [employer] MEDEX SUPPLEMENT MEDICARE PART A & B [employer] MEDEX SUPPLEMENT Care Teams Button Riveter Relationship Specialty Start Date End Date Pcp, Unknown PCP - General 06/19/24 Additional Source Comments The information contained in this document represents components of the legal health record. It is not the complete legal health record.[facility]
--- OUTSIDE RECORDS SUMMARY | 2025-01-08 16:04 | XMS_ITS | Encounter Summary ---
Author Organization [facility] Address [address] [place] [address] Care Team Providers Care Shoe Coverer Name Role Phone Norman Lopez MD Primary Care Provider [phone]- [phone] Encounter Details Date Type Department Care Team (Late st Contact Info) Description 05/23/2024 Lab Requisition [facility] - Main Lab [address] [facility] [place] [address] Patricio Mijares MD [address] [place], [place] [id number] Elevated prostate specific antigen (PSA) Social History [...] (05/21/2024) Final Diagnosis A. Prostate, Left Middle [place] Biopsy: - Benign prostatic tissue. B. Prostate, Left Lateral [place] Biopsy: - Benign prostatic tissue. C. Prostate, Left Middle Middle Biopsy: - Benign prostatic tissue. D. Prostate, Left Lateral Middle Biopsy: - Benign prostatic tissue. E. Prostate, Left Middle Base Biopsy: - Benign prostatic tissue. F. Prostate, Left Lateral Base Biopsy: - Benign prostatic tissue. G. Prostate, Left Anterior Peripheral Zone Biopsy: - Benign prostatic tissue. H. Prostate, Right Middle [place] Biopsy: - Benign prostatic tissue. I. Prostate, Right Lateral [place] Biopsy: - Benign prostatic tissue. J. Prostate, Right Middle Middle Biopsy: - Benign prostatic tissue. K. Prostate, Right Lateral Middle Biopsy: - Benign prostatic tissue. L. Prostate, Right Middle Base Biopsy: - Benign prostatic tissue. M. Prostate, Right Lateral Base Biopsy: - Benign prostatic tissue. 05/24/2024 1:05 PM EDT [facility] Clinical Information Elevated PSA = 8.5 (04/26/24) [id number] 05/24/2024 1:05 PM EDT [facility] Gross Description A. Prostate, Left Middle [place] Biopsy: Received, properly labeled, are two H and E stained slides and two unstained slides. B. Prostate, Left Lateral [place] Biopsy: Received, properly labeled, are two H [...] two unstained slides. H. Prostate, Right Middle [place] Biopsy: Received, properly labeled, are two H and E stained slides and two unstained slides. I. Prostate, Right Lateral [place] Biopsy: Received, properly labeled, are two H [...] unstained slides. /al 05/24/2024 1:05 PM EDT [facility] Disclaimer Unless otherwise specified, all tissue is 10% NB formalin fixed and paraffin embedded. Technical pathology services provided by [facility] at [address] [place] [address] [address], [place] [address] (CLIA #[id number]/S nilson Shi MD, Janitor Caretaker) 05/24/2024 1:05 PM EDT [facility] Tissue Prostate / [...] MD LAB PATHOLOGY ORDERABLES Fi nal Result [facility] [address] [place] [address], documented in this encounter Visit Diagnoses Diagnosis Elevated prostate specific antigen (PSA) documented in this encounter Care Teams Shoe Coverer Relationship Specialty Start Date End Date Norman Lopez MD PCP - General Internal Medicine 05/06/24 documented as of this encounter
== END 2025-01-08 14:11 | disposition home or self-care (01) ==
LOC: HO.ENCR 13:18
PROVIDERS: PCP Internal Medicine; Visit Provider Internal Medicine Endocrinology, Diabetes & Metabolism
DX: E23.7 Disorder of pituitary gland, unspecified (principal)
CPT/HCPCS: 99213

== ENCOUNTER → 2025-01-08 13:17 | Outpatient (BNVA) | payer MEDICARE, SELFPAY | PROVIDERS: PCP Internal Medicine; Visit Provider Internal Medicine Endocrinology, Diabetes & Metabolism | DX: D35.2 Benign neoplasm of pituitary gland (principal); E29.1 Testicular hypofunction | CPT/HCPCS: 99212 ==